=== PATIENT | male | born 1965 | race Caucasian/White ===

== ENCOUNTER 2018-03-03 14:19 | Emergency (ER) | payer OTHER, SELFPAY ==
[2018-03-03 14:20] VITALS: BP 176/106; PULSE 72; RESP 16; TEMP 36.7; O2SAT 100; BMI 32.8
--- NOTE | 2018-03-03 14:31 | RAD_ITS ---
STUDY: X-RAY CHEST REASON FOR EXAM: Male, 52 years old. Chest pain TECHNIQUE: Frontal view of the chest COMPARISON: None. FINDINGS: The lungs are clear. There are no pleural effusions. There is no pneumothorax. The heart is normal in size. The visualized osseous structures are within normal limits. RAD/Chest 1 View (Portable) IMPRESSION: No acute thoracic pathology. Electronically Signed: Bruno Raines, at 15:27 EST Tel , Service support ,
--- NOTE | 2018-03-03 14:31 | EKG12_ITS ---
Test Reason : CP Blood Pressure : / mmHG Vent. Rate : 071 BPM Atrial Rate : 071 BPM P-R Int : 192 ms QRS Dur : 102 ms QT Int : 392 ms P-R-T Axes : 062 058 046 degrees QTc Int : 425 ms Normal sinus rhythm ST elevation, consider early repolarization Borderline ECG Confirmed by BHANU MURRY, DANK ([id number]), video effects editor LORELEI WEIR ([id number]) on 03/05/2018 5:07:33 PM Referred By: LITZY/MOHAMUD Confirmed By:DANK DRUMMOND MD
[2018-03-03] MEDS: Aspirin 81 MG TAB.CHEW 324 MG PO (14:43)
[2018-03-03] MEDS: 0.9% Normal Saline 1,000 ML 15 ML IV (14:43)
[2018-03-03 14:48] LABS: Absolute Lymphocyte Count 0.91 X10^3/ul (0.83-4.51); Absolute Neutrophil Count 5.1 X10^3/uL (2.0-7.7); Basophil# 0.03 X10^3/uL; Basophil% 0.4 % (0-1); Eosinophil# 0.12 X10^3/uL; Eosinophils% 1.7 % (0-5); Hematocrit 44.7 % (40-54); Hemoglobin 15.3 g/dl (13.0-16.5); Lymphocyte # 0.91 X10^3/ul (4.0); Lymphocyte % 13.2 % (19-41); Mean Corp Hgb Conc 34.2 g/gl (32-36); Mean Corpuscular Hgb 33.2 pg (27.0-32.0); Mean Platelet Vol. 10.7 fl (6.2-12.0); Monocyte# 0.73 X10^3/uL; Monocyte% 10.6 % (0-10); Neutrophil # 5.07 X10^3/uL (2.7-7.7); Platelet Count 81 K/mm3 (150-450); RBC Distribution Width CV 12.5 % (11.6-14.6); RBC Distribution Width SD 44.1 fl (35.1-43.9); Red Blood Count 4.61 M/mm3 (4.6-6.2); White Blood Count 6.9 K/mm3 (4.4-11.0)
--- NOTE | 2018-03-03 14:48 | ED.DCSUM_ITS ---
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 he voiced clear understanding of that but stated again he felt fine he preferred outpatient management understood the risks involved and would see his physicians for further management, we also spoke about cessation of alcohol and tobacco use and from return for change in symptoms he stated he would consider all the above as well, he will also take 2 baby aspirin a day until he follows up Treatment Plan: [] Disposition: [] Home stable declined admission Impression: [] Left elbow and left posterior shoulder pain etiology unclear This note was generated with [employer] dictation software. It may contain incorrect words, spelling, and punctuation that were not noted in review of the chart prior to signing ED Disposition - Plan for ED Patient: Chief Complaint: Chest Other Instructions: ED Chest Pain Atypical Unkn Cause Referrals: Jayesh Jeffers MD [Primary Care Provider] - Additional Instructions: Follow-up with your outpatient providers for further evaluation and management
[2018-03-03 14:49] LABS: POSITIVE COUNT NO; POSITIVE DIFFERENTIAL NO; POSITIVE MORPHOLOGY NO
[2018-03-03 15:05] LABS: Anion Gap 7 (5-15); BUN 4 mg/dL (7-18); BUN/Creat Ratio 5.5 RATIO (10-20); Calcium,Total 8.6 mg/dL (8.5-10.1); Chloride 99 mmol/L (98-107); Creatinine, Serum 0.72 mg/dL (0.70-1.30); EST Glomerular Filtration Rate 121 mL/min (>60); Est Glom Filt Rate - Afr Amer 146 mL/min (>60); Estimated Creatinine Clearance 126.37 ml/min; Glucose 119 mg/dL (74-106); Potassium 3.9 mmol/L (3.5-5.1); Sodium Level 132 mmol/L (136-145)
[2018-03-03 15:16] LABS: BNP,B-Type NATRIURETIC PEPTIDE 43.7 pg/mL (0-100)
[2018-03-03 15:45] VITALS: BP 145/87; PULSE 70; RESP 13; O2SAT 97
--- NOTE | 2018-03-03 15:47 | ED.DEP ---
ED Disposition - Plan for ED Patient: Chief Complaint: Chest Other Instructions: ED Chest Pain Atypical Unkn Cause Referrals: Jayesh Jeffers MD [Primary Care Provider] - Additional Instructions: Follow-up with your outpatient providers for further evaluation and management
[2018-03-03 16:04] VITALS: BP 112/79; PULSE 74; RESP 18; O2SAT 97
== END 2018-03-03 16:05 | disposition home or self-care (01) ==
PROVIDERS: Emergency Provider Emergency Medicine; Family Provider Family Medicine; PCP Family Medicine
DX: M25.522 Pain in left elbow (principal); M25.512 Pain in left shoulder; F17.200 Nicotine dependence, unspecified, uncomplicated; R05 Cough; I10 Essential (primary) hypertension; E78.00 Pure hypercholesterolemia, unspecified; Z79.899 Other long term (current) drug therapy
CPT/HCPCS: 71045; 80048; 83880; 84484; 85025; 93005; 99285; J7030; A4216

== ENCOUNTER 2019-06-05 17:06 | Emergency (ER) | payer OTHER, SELFPAY ==
[2019-06-05 17:07] VITALS: BP 155/78; PULSE 103; RESP 17; TEMP 36.5; O2SAT 99; BMI 36.0
--- NOTE | 2019-06-05 17:35 | CT_ITS ---
STUDY: CT ABDOMEN AND PELVIS WITHOUT CONTRAST REASON FOR EXAM: Male, 53 years old. DISTENTION, JAUNDICE, WEAKNESS, FATIGUE X 1 WK RADIATION DOSAGE (If Supplied By Facility): CTDIvol = ( 20.28 ) mGy, DLP = ( 1124.92 ) mGycm TECHNIQUE: Transaxial images were obtained from the dome of the diaphragm to the symphysis pubis without oral contrast, and without intravenous contrast. Sagittal and coronal images were reconstructed. Individualized dose optimization techniques were used for this CT. COMPARISON: None. FINDINGS: Small right pleural effusion with associated atelectasis. The visualized portions of the heart are within normal limits. Significant cirrhosis and ascites. Normal gallbladder and extrahepatic biliary system. Normal spleen. Normal pancreas. Normal bilateral adrenal glands. Normal right kidney. Normal left kidney. Normal visualized stomach. Normal small intestine. Normal colon. The appendix is visualized and appears normal. Normal abdominal aorta. Normal inferior vena cava. Normal retroperitoneum. Normal urinary bladder. Normal visualized prostate gland. There is evidence of prior right inguinal hernia repair. Normal osseous structures. CT/Abdomen/Pelvis without Cont IMPRESSION: Moderate ascites. Small left pleural effusion. Cirrhotic liver which is somewhat poorly characterized secondary to lack of intravenous contrast. Acute hepatitis or other acute hepatic process should be excluded clinically. Electronically Signed: Jones Ward, at 18:36 EDT Tel , Service support ,
--- NOTE | 2019-06-05 17:39 | ED.DCSUM_ITS ---
History of Present Illness Chief Complaint: Weakness Informant: Patient Onset: Weeks - 2 Context: Gradual Onset Timing: Continuous Quality: weakness Location: BLE mostly Current Severity: Moderate Maximum Severity: Moderate Worsened by: nothing Relieved by: nothing Associated Symptoms: poor appetite. jaundice according to my boss today. Narrative: Patient was sent by his PCP because of looking yellow today. He has not noticed or recognized that he has been jaundiced. He states since he had a tooth extracted 2 weeks ago, he has been feeling malaised, weak in his legs, and had a poor appetite. He denies any nausea, vomiting, red blood per rectum, melena, or bleeding from anywhere else. He had some diarrhea that started around 2 weeks ago, but he states he took an antidiarrheal and since that has been resolved. He denies any changes in his abdominal girth or pains. He admits to being an alcoholic. He states he has drank for many years and does not remember how long ago he started drinking heavily. He states on a typical day after work he drinks the equivalent of #4 12-ounce beers, and on a typical weekend, he drinks 8/day. He does not take any medications. He states he does not follow-up with his PCP who we last saw over a year ago, due to a disagreement over an ultrasound of his liver, the patient states this was desired by his PCP because of some abnormal blood work. - Past Medical History (1) HTN (hypertension) Status: Chronic (2) Alcoholism Status: Chronic Past Medical History - Allergies and Home Meds Allergies/Adverse Reactions: Allergies acetaminophen [From Vicodin] Adverse Reaction (Verified 06/05/19 17:37) Itching codeine Adverse Reaction (Verified 06/05/19 17:37) Nausea hydrocodone [From Vicodin] Adverse Reaction (Verified 06/05/19 17:37) Itching Primary Care Physician: Jayesh Jeffers MD [Primary Care Provider] - Lives: Alone Smoking Status: Current every day smoker Alcohol: Heavy Drugs: None Review of Systems General: Reports: Malaise. Denies: Chills, Fever, Sweats Eyes: Denies: Visual changes - bilaterally, Diplopia ENT: Denies: Bilateral ear pain, Rhinorrhea, Sore throat Cardiovascular: Denies: Chest pain, Palpitations Respiratory: Denies: Dyspnea, Cough, Dyspnea on exertion Gastrointestinal: Reports: - - anorexia. Denies: Abdominal pain, Nausea, Vomiting, Diarrhea, Melena, Hematochezia Genitourinary: Denies: Dysuria, Hematuria, Frequency Musculoskeletal: Reports: Swelling - unk duration; pt did not notice until it was pointed out to him. Denies: Back pain, Extremity Pain Skin: Reports: - - jaundice. Denies: Rash, Wounds Neurological: Reports: Weakness. Denies: Headache, Numbness Physical Exam Vital Signs/Narrative: Vital Signs Temp Pulse Resp BP Pulse Ox 06/05/19 17:07 97.7 F L 103 H 17 155/78 H 99 Inital Vital Signs reviewed: Yes General: Well nourished, Well developed, Obese, No Acute Distress Head: Normocephalic, Atraumatic Eyes: Perrl, EOMI, Scleral icterus ENT: Moist mucous membranes, No rhinorrhea, - - sublingual icterus Neck: Supple, Nontender Cardiovascular: Regular rate, Regular rhythm, No murmurs Respiratory: No distress, CTA bilaterally, Chest nontender Abdomen: Soft, Nontender, Normal bowel sounds, - - abdominal distension/obesity, which limits exam for organomegaly and fluid wave Back: Nontender, Normal Inspection Extremities: Nontender, Edema - 2+ pitting, BLE to thighs, symmetric. Negative for: Calf Tenderness Skin: No rash, Jaundice, No Trauma Neurological: Alert, Oriented x3, Cranial nerves II-XII grossly intact, Normal Strength, Normal Sensation Psychological: Normal affect, Normal Mood Diagnostic/Tx/Re-eval Impressions Abdomen/Pelvis CT 06/05/19 17:35 IMPRESSION: Moderate ascites. Small left pleural effusion. Cirrhotic liver which is somewhat poorly characterized secondary to lack of intravenous contrast. Acute hepatitis or other acute hepatic process should be excluded clinically. Electronically Signed: Jones Ward, at 18:36 EDT Tel , Service support , 06/05/19 17:35 Abdomen/Pelvis without Cont [CT] Stat Laboratory Results 06/05/19 06/05/19 06/05/19 17:30 17:30 17:30 WBC 17.5 H RBC 2.91 L Hgb 10.2 L Hct 26.1 L MCV 89.7 MCH 35.1 H MCHC 39.1 H RDW Std Deviation 45.5 H RDW Coeff of Pravin 13.9 Plt Count 84 L MPV 10.6 Neut % (Auto) Not Reportable Absolute Neuts (auto) 15.8 H Absolute Lymphs (auto) 0.53 L Total Counted 100 Neutrophils % (Manual) 85 H Band Neutrophils % 5 Lymphocytes % (Manual) 3 L Monocytes % (Manual) 4 Basophils % (Manual) 1 Metamyelocytes % 2 H Differential Comment SEE COMMENT Diff Path Review May foll Toxic Granulation 1+ Platelet Estimate SLT DEC Anisocytosis RARE Macrocytosis RARE PT 22.0 H INR 2.0 APTT 41.5 H Sodium 108 L* Potassium 3.5 Chloride 77 L Carbon Dioxide 20.0 L Anion Gap 11 BUN 8 Creatinine 0.92 Estim Creat Clear Calc 97.76 Est GFR (MDRD) Af Amer 110 Est GFR (MDRD) Non-Af 91 BUN/Creatinine Ratio 8.7 L Glucose 109 H Calcium 7.4 L Total Bilirubin 28.60 H* Direct Bilirubin 21.43 H AST 415 H ALT 170 H Alkaline Phosphatase 236 H Total Protein 6.6 Albumin 2.4 L Globulin 4.2 Lipase 354 - Medical Decision Making Patient has significant hyponatremia at 108. There has been no history of seizures. He is not confused or appearing encephalopathic on exam. He has sign ificant hyperbilirubinemia, I imaged him with CT which shows signs of ascites and cirrhotic liver. He likely has had cirrhosis for some time that has been undiagnosed since he has refused testing until now. He has elevated coag studies as a result. He was started on normal saline at a slow rate. His MELD score is as below: MELDNa/MELD-Na Score for Liver Cirrhosis from [email or web address] on 06/05/2019 All calculations should be rechecked by clinician prior to use RESULT SUMMARY: 32 points MELD-Na Score Estimated 90-Day Mortality: 65-66% INPUTS: Dialysis at least twice in the past week ?> 0 = No Creatinine ?> 0.92 mg/dL Bilirubin ?> 28.6 mg/dL INR ?> 2.0 Sodium ?> 108 mEq/L I discussed with hospitalist, who based on the above information recommends transfer to a center that has the capability of providing hepatology consultation, TIPS procedure, he is not sure what all he will require at this time, but states we do not have the capacity to care for this patient adequately, and we do not have gastroenterology at this hospital. Patient preferred to stay close but was reasonable and amenable to being transferred to an appropriate place. [facility] were unable to accept him mostly due to the inavailability of gastroenterology. [facility] said they send these patients to [facility], and [facility] in [place] said the same thing. I discussed with the patient, he states that if he had to go to [place] or [place] he preferred [facility] over [facility]. I discussed with Dr. Kowalski there, he referred me to their intens ivist, Dr. Faustin, they did in fact have a bed and he accepted the patient there. At this time he is getting slow IV fluids and is clinically and hemodynamically stable. ED Disposition - Plan for ED Patient: Disposition: Acute Care Hospital - Other Diagnosis: Hyponatremia, Alcoholic cirrhosis of liver with ascites, Coagulopathy Referrals: Jayesh Jeffers MD [Primary Care Provider] -
[2019-06-05 17:50] LABS: Hematocrit 26.1 % (40-54); Hemoglobin 10.2 g/dL (13.0-16.5); Mean Corp Hgb Conc 39.1 g/dL (32-36); Mean Corpuscular Hgb 35.1 pg (27.0-32.0); Mean Corpuscular Volume 89.7 fL (80-94); Mean Platelet Vol. 10.6 fl (6.2-12.0); POSITIVE COUNT YES; POSITIVE DIFFERENTIAL YES; POSITIVE MORPHOLOGY YES; Platelet Count 84 K/mm3 (150-450); RBC Distribution Width CV 13.9 % (11.6-14.6); RBC Distribution Width SD 45.5 fl (35.1-43.9); Red Blood Count 2.91 M/mm3 (4.6-6.2); White Blood Count 17.5 K/mm3 (4.4-11.0)
[2019-06-05 17:54] LABS: Differential Indicated MANUAL DIFF
[2019-06-05 18:05] LABS: Partial Thromboplast Time 41.5 Seconds (24.1-36.2)
[2019-06-05 18:10] LABS: AST(SGOT) 415 U/L (15-37); Alanine Aminotransfer ALT/SGPT 170 U/L (16-61); Albumin, Serum 2.4 g/dL (3.2-5.0); Alkaline Phosphatase 236 U/L (45-117); Anion Gap 11 (5-15); BUN 8 mg/dL (7-18); BUN/Creat Ratio 8.7 RATIO (10-20); Bilirubin, Direct 21.43 mg/dL (0.00-0.30); Calcium,Total 7.4 mg/dL (8.5-10.1); Chloride 77 mmol/L (98-107); Creatinine, Serum 0.92 mg/dL (0.70-1.30); EST Glomerular Filtration Rate 91 mL/min (>60); Est Glom Filt Rate - Afr Amer 110 mL/min (>60); Estimated Creatinine Clearance 97.76 ml/min; Globulin 4.2 g/dL (2.2-4.2); Glucose 109 mg/dL (74-106); Lipase 354 U/L (73-393); Potassium 3.5 mmol/L (3.5-5.1); Protein, Total 6.6 g/dL (6.4-8.2); Sodium Level 108 mmol/L (136-145)
[2019-06-05 18:16] LABS: Basophil 1 % (0-1); Lymphocyte 3 % (19-41); Metamyelocyte 2 % (0-1); Monocyte 4 % (0-10); Neutrophil-Band 5 % (0-5); Neutrophil-Segmented 85 % (47-70); Total Cells Counted 100 (MANUAL DIFF)
[2019-06-05 18:19] LABS: Absolute Lymphocyte Count 0.53 X10^3/uL (0.83-4.51); Absolute Neutrophil Count 15.8 X10^3/uL (2.0-7.7)
[2019-06-05 18:22] LABS: Anisocytosis RARE; Macrocytosis RARE; Platelet Estimate SLT DEC (ADEQ); Toxic Granulation 1+
[2019-06-05 19:00] VITALS: BP 147/59; PULSE 88; RESP 18; O2SAT 96
[2019-06-05] MEDS: 0.9% Normal Saline 1,000 ML 150 ML IV (19:14)
[2019-06-05 21:00] VITALS: BP 143/66; PULSE 90; RESP 11; O2SAT 97
[2019-06-05 21:23] VITALS: BP 143/66; PULSE 87; RESP 14; TEMP 36.6; O2SAT 95
--- NOTE | 2019-06-05 22:15 | ED.RN ---
PER REGI DURHAM, OUR TRANSPORT WAS DIVERTED TO ANOTHER CALL, ETA EXTENDED BY 90 MINUTES
[2019-06-05 23:00] VITALS: BP 136/63; PULSE 92; RESP 15; O2SAT 95
--- NOTE | 2019-06-05 23:20 | ED.RN ---
transport team at bedside. report given. denies questions.
--- NOTE | 2019-06-06 00:13 | ED.RN ---
transport team still at bedside having trouble with IV tubing compatibility.
[2019-06-06 11:15] LABS: Pathologist Review Reviewed
== END 2019-06-06 00:19 | disposition short-term general hospital (02) ==
PROVIDERS: Emergency Provider Emergency Medicine; PCP Family Medicine
DX: K70.31 Alcoholic cirrhosis of liver with ascites (principal); E87.1 Hypo-osmolality and hyponatremia; R79.1 Abnormal coagulation profile; I10 Essential (primary) hypertension; F17.200 Nicotine dependence, unspecified, uncomplicated; E66.9 Obesity, unspecified
CPT/HCPCS: 74176; 80048; 80076; 83690; 85025; 85610; 85730; 96360; 96361; 99285; J7030; A4216

== ENCOUNTER 2019-06-25 17:49 | Emergency (ER) | payer OTHER, SELFPAY ==
[2019-06-25 17:51] VITALS: BP 114/90; PULSE 118; RESP 19; TEMP 36.3; O2SAT 99; BMI 34.8
--- NOTE | 2019-06-25 18:04 | EKG12_ITS ---
Test Reason : Blood Pressure : / mmHG Vent. Rate : 107 BPM Atrial Rate : 107 BPM P-R Int : 146 ms QRS Dur : 090 ms QT Int : 338 ms P-R-T Axes : 086 095 071 degrees QTc Int : 451 ms Sinus tachycardia Rightward axis Borderline ECG Confirmed by NATHANAEL JEFFREY ([id number]), field map editor LORELEI WEIR ([id number]) on 06/30/2019 2:50:05 PM Referred By: YOHANNES Confirmed By:NATHANAEL JEFFREY
--- NOTE | 2019-06-25 18:09 | ED.DCSUM_ITS ---
- ER Visit Summary Date of Service: 06/25/19 Chief Complaint: Lower extremity swelling sent in to rule out DVT History of Present Illness: The patient is a 53 M history of liver disease from alcoholism. States he recently was admitted to [facility] about 2 weeks ago. States he has had leg swelling right greater than left. No pain. No chest pain. No hemoptysis. No history of DVT or PE. No history of cancer. No chest pain or shortness of breath. Physical Examination: Middle-aged male no acute distress vital signs stable afebrile. Pulse ox 90% room air no signs hypoxia. H EENT exam unremarkable. Neck nontender no JVD. No lymphadenopathy. Lungs clear to auscultation bilaterally. Heart regular rhythm rate about 115 no murmur. Chest were nontender. Abdomen soft nontender normal bowel sounds no peritoneal signs. Patient moving all 4 extremities. Both lower extremities have 1+ pitting edema. Calves are nontender. No cords. Dorsi plantarflexion intact. Neurologically he is awake alert with no focal motor deficits. Test Results: This x-ray portable 1 view shows no acute abnormality. Normal cardiac silhouette. No effusions. Read by myself and radiologist. Bilateral lower extremity venous studies showed no DVT per the die maintenance technician. EKG sinus tachycardia rate of 107 no acute signs of WI or ischemia. CBC showed a white count 13. Hemoglobin 8.5 he has chronic anemia his last hemoglobin was 10. Lately count of 62,000 more recently his platelet count has been 81,000. Chemistry sodium 130. Normal BUN, creatinine and gap. Liver enzymes elevated consistent with his history of cirrhosis. Emergency Department Course and Treatment: Patient has bilateral lower extremity 1+ pitting edema. I think this is from his liver disease and cirrhosis. Ultrasound will be obtained to rule out DVT due to his recent admission. Screening labs are being obtained.\ Repeat exam the patient is doing well at 2015 p.m. will be discharged home. Treatment Plan: Elevate his legs to decrease swelling. Follow-up with his primary care physician at the [facility]. Disposition: Discharge Impression: Acute bilateral lower extremity edema History of liver cirrhosis Acute on chronic anemia of chronic disease Hyponatremia Chronic thrombocytopenia This note was generated with [employer] software. It may contain incorrect words, spelling, and punctuation that were not noted in review of the chart prior to signing ED Disposition - Plan for ED Patient: Referrals: Jayesh Jeffers MD [Primary Care Provider] -
--- NOTE | 2019-06-25 18:13 | US_ITS ---
STUDY: VENOUS DOPPLER ULTRASOUND - BILATERAL LOWER EXTREMITIES REASON FOR EXAM: Male, 53 years old. BILAT LEG SWELLING- JUST 2 DAYS TECHNIQUE: Ultrasound evaluation of the deep vein system to include padgett-scale imaging and compression was performed. Padgett-scale imaging and Doppler sonographic evaluation, including duplex spectral analysis and qualitative color flow sonography, was performed. COMPARISON: None. FINDINGS: RIGHT LEG Common Femoral Vein: Normal compression, spontaneity and augmentation. Normal color Doppler. Common Femoral Vein/Greater Saphenous Junction: Normal color flow. Femoral Proximal: Normal color flow. Femoral Middle: Normal compression, spontaneity and augmentation. Normal color Doppler. Femoral Distal: Normal color flow. Popliteal Vein: Normal compression, spontaneity and augmentation. Normal color Doppler. Posterior Tibial Vein: Normal color flow. Peroneal Vein: Normal color flow. LEFT LEG Common Femoral Vein: Normal compression, spontaneity and augmentation. Normal color Doppler. Common Femoral Vein/Greater Saphenous Junction: Normal color flow. Femoral Proximal: Normal color flow. Femoral Middle: Normal compression, spontaneity and augmentation. Normal color Doppler. Femoral Distal: Normal color flow. Popliteal Vein: Normal compression, spontaneity and augmentation. Normal color Doppler. Posterior Tibial Vein: Normal color flow. Peroneal Vein: Normal color flow. US/Venous Duplex Imag/Guido Extrem IMPRESSION: Bilateral lower extremity venous Doppler exam negative for deep venous thrombosis. Electronically Signed: Eleonora Gonzáles MD at 19:13 EDT , Service support ,
[2019-06-25 18:15] VITALS: BP 144/75; PULSE 77; RESP 18; O2SAT 97
--- NOTE | 2019-06-25 18:32 | RAD_ITS ---
STUDY: X-RAY CHEST REASON FOR EXAM: Male, 53 years old. leg edema TECHNIQUE: 1 view COMPARISON: Prior chest radiograph of March 03, 2018 FINDINGS: Limited inspiration with minimal bibasilar atelectatic changes without consolidation. There is no demonstrated pleural abnormality. Normal size heart. Normal mediastinum and sanju. Normal visualized pulmonary arteries. Normal visualized aortic arch and descending thoracic aorta. Normal visualized thoracic spine. Normal visualized ribs, clavicles, and shoulders. There is no demonstrated abnormality of the visualized soft tissue structures of the upper abdomen. RAD/Chest 1 View (Portable) IMPRESSION: Limited inspiration with mild bibasilar atelectatic changes without major consolidation, pleural effusion or cardiomegaly. Negative for pulmonary venous congestion. Electronically Signed: Eleonora Gonzáles MD at 18:49 EDT , Service support ,
[2019-06-25 18:48] LABS: ALB/GLOB Ratio 0.6 RATIO (0.9-2.4); AST(SGOT) 112 U/L (15-37); Alanine Aminotransfer ALT/SGPT 100 U/L (16-61); Albumin, Serum 2.2 g/dL (3.2-5.0); Alkaline Phosphatase 264 U/L (45-117); Anion Gap 5 (5-15); BUN 13 mg/dL (7-18); BUN/Creat Ratio 13.4 RATIO (10-20); Calcium,Total 8.1 mg/dL (8.5-10.1); Chloride 98 mmol/L (98-107); Creatinine, Serum 0.97 mg/dL (0.70-1.30); EST Glomerular Filtration Rate 86 mL/min (>60); Est Glom Filt Rate - Afr Amer 104 mL/min (>60); Estimated Creatinine Clearance 92.72 ml/min; Globulin 3.7 g/dL (2.2-4.2); Glucose 141 mg/dL (74-106); Potassium 4.2 mmol/L (3.5-5.1); Protein, Total 5.9 g/dL (6.4-8.2); Sodium Level 130 mmol/L (136-145)
[2019-06-25 19:29] LABS: Absolute Lymphocyte Count 1.16 X10^3/uL (0.83-4.51); Absolute Neutrophil Count 10.1 X10^3/uL (2.0-7.7); Basophil# 0.06 X10^3/uL; Basophil% 0.5 % (0-1); Eosinophil# 0.23 X10^3/uL; Eosinophils% 1.8 % (0-5); Hematocrit 25.3 % (40-54); Hemoglobin 8.5 g/dL (13.0-16.5); Lymphocyte # 1.16 X10^3/ul (4.0); Lymphocyte % 8.9 % (19-41); Mean Corp Hgb Conc 33.6 g/dL (32-36); Mean Corpuscular Hgb 36.6 pg (27.0-32.0); Mean Corpuscular Volume 109.1 fL (80-94); Mean Platelet Vol. 10.7 fl (6.2-12.0); Monocyte# 1.04 X10^3/uL; NRBC Flagged by Analyzer 0 % (0-5); Neutrophil # 10.09 X10^3/uL (2.7-7.7); Neutrophil % 77.3 % (47-70); POSITIVE COUNT YES; Platelet Count 62 K/mm3 (150-450); RBC Distribution Width CV 14.7 % (11.6-14.6); RBC Distribution Width SD 59.5 fl (35.1-43.9); Red Blood Count 2.32 M/mm3 (4.6-6.2)
[2019-06-25 19:35] LABS: Differential Indicated SCAN CRITERIA MET
[2019-06-25 19:40] VITALS: BP 144/71; PULSE 78; RESP 16; O2SAT 96
[2019-06-25 20:01] LABS: Differential Comment SCANNED
--- NOTE | 2019-06-25 20:17 | ED.DEP ---
ED Disposition - Plan for ED Patient: Disposition: Home or Assisted Living Instructions: ED Peripheral Edema, Bilateral Referrals: Jayesh Jeffers MD [Primary Care Provider] - 3-5 Days Additional Instructions: Follow-up with your primary care physician. There were no blood clots in your legs.
== END 2019-06-25 20:48 | disposition home or self-care (01) ==
PROVIDERS: Emergency Provider Emergency Medicine; PCP Family Medicine
DX: R60.0 Localized edema (principal); E87.1 Hypo-osmolality and hyponatremia; K70.30 Alcoholic cirrhosis of liver without ascites; D63.8 Anemia in other chronic diseases classified elsewhere; D69.6 Thrombocytopenia, unspecified; Z72.0 Tobacco use
CPT/HCPCS: 71045; 80048; 80053; 85025; 93005; 93970; 99282; A4216

== ENCOUNTER 2019-06-30 17:29 | Inpatient (IN) | payer OTHER, SELFPAY ==
[2019-06-30] VITALS (10 sets, daily range): BP systolic 127–156; BP diastolic 73–86; PULSE 103–117; RESP 18–25; TEMP 36.5–36.9; O2SAT 96–99; BMI 39.0; BMI 39.2
--- NOTE | 2019-06-30 18:11 | EKG12_ITS ---
Test Reason : SOB Blood Pressure : / mmHG Vent. Rate : 115 BPM Atrial Rate : 115 BPM P-R Int : 154 ms QRS Dur : 090 ms QT Int : 350 ms P-R-T Axes : 060 060 061 degrees QTc Int : 484 ms Sinus tachycardia Otherwise normal ECG Confirmed by NATHANAEL JEFFREY ([id number]), newspaper editor managing LORELEI WEIR ([id number]) on 07/07/2019 1:46:09 PM Referred By: TOBY/LITZY Confirmed By:NATHANAEL JEFFREY
--- NOTE | 2019-06-30 18:11 | ED.DCSUM_ITS ---
History of Present Illness Chief Complaint: Shortness of Breath Detail of Chief Complaint: Swelling Informant: Patient Onset: Weeks Narrative: Patient has a recent diagnosis of alcoholic cirrhosis and was treated at . He was released approximate 3 weeks ago. Patient states that he has had progressive swelling since he was released from the hospital. He believes he has gained approximately 40 pounds. He is complaining of swelling to his abdomen and lower extremities and increasing shortness of breath. No fever or chills. - Past Medical History (1) Alcoholic cirrhosis Status: Chronic (2) Alcoholism Status: Chronic (3) HTN (hypertension) Status: Chronic Past Medical History - Allergies and Home Meds Allergies/Adverse Reactions: Allergies acetaminophen [From Vicodin] Adverse Reaction (Verified 06/30/19 18:14) Itching codeine Adverse Reaction (Verified 06/30/19 18:14) Nausea hydrocodone [From Vicodin] Adverse Reaction (Verified 06/30/19 18:14) Itching Prior records reviewed: Yes Smoking Status: Current every day smoker - Family History Maternal Family History: Reports: - - This is Review of Systems General: Denies: Chills, Fever Eyes: Denies: Visual changes - bilaterally ENT: Denies: Bilateral ear pain Cardiovascular: Denies: Chest pain Respiratory: Reports: Dyspnea Gastrointestinal: Reports: Abdominal pain - Abdominal distention Musculoskeletal: Reports: Swelling Skin: Denies: Rash Neurological: Denies: Headache Hematologic: Denies: Easy bruising, Easy bleeding Allergy: Denies: Uticaria Physical Exam Vital Signs/Narrative: Vital Signs Temp Pulse Resp BP Pulse Ox 06/30/19 17:29 97.9 F 117 H 25 H 156/78 H 99 Inital Vital Signs reviewed: Yes General: Well nourished, Well developed Head: Normocephalic ENT: Moist mucous membranes Neck: Supple Cardiovascular: Regular rate, Regular rhythm Respiratory: No distress, - - Diminished bilateral bases Abdomen: - - Abdomen distended. No focal tenderness. Extremities: Edema - 4+ edema lower extremities Skin: - - Mild jaundice appearance Neurological: Alert, Oriented x3 Psychological: Normal affect Diagnostic/Tx/Re-eval Impressions Chest X-Ray 06/30/19 18:25 IMPRESSION: Minor bibasilar interstitial thickening and discoid atelectasis in left lower lobe Electronically Signed: Stefan Rico MD at 18:53 EDT , Service support , 06/30/19 18:25 Chest 1 View (Portable) [RAD] Stat Laboratory Results 06/30/19 06/30/19 06/30/19 18:29 18:29 18:29 WBC 10.3 RBC 2.33 L Hgb 8.4 L Hct 25.2 L MCV 108.2 H MCH 36.1 H MCHC 33.3 RDW Std Deviation 52.6 H RDW Coeff of Pravin 13.2 Plt Count 87 L MPV 10.3 Immature Gran % (Auto) 4.700 H Neut % (Auto) 74.4 H Lymph % (Auto) 9.6 L [place] % (Auto) 9.0 Eos % (Auto) 1.9 Baso % (Auto) 0.4 Absolute Neuts (auto) 7.7 Absolute Lymphs (auto) 0.99 Nucleated RBC % 0 Platelet Estimate MOD DEC RBC Morphology NORM C+C PT 20.8 H INR 1.9 APTT 45.5 H Sodium 129 L Potassium 5.0 Chloride 97 L Carbon Dioxide 26.0 Anion Gap 6 BUN 16 Creatinine 1.14 Estim Creat Clear Calc 78.90 Est GFR (MDRD) Af Amer 86 Est GFR (MDRD) Non-Af 71 BUN/Creatinine Ratio 14.0 Glucose 178 H Hemoglobin A1c Calcium 8.2 L Total Bilirubin 9.50 H Direct Bilirubin 6.33 H AST 119 H ALT 91 H Alkaline Phosphatase 327 H Total Protein 6.0 L Albumin 2.0 L Globulin 4.0 Lipase 364 06/30/19 18:29 WBC RBC Hgb Hct MCV MCH MCHC RDW Std Deviation RDW Coeff of Pravin Plt Count MPV Immature Gran % (Auto) Neut % (Auto) Lymph % (Auto) [place] % (Auto) Eos % (Auto) Baso % (Auto) Absolute Neuts (auto) Absolute Lymphs (auto) Nucleated RBC % Platelet Estimate RBC Morphology PT INR APTT Sodium Potassium Chloride Carbon Dioxide Anion Gap BUN Creatinine Estim Creat Clear Calc Est GFR (MDRD) Af Amer Est GFR (MDRD) Non-Af BUN/Creatinine Ratio Glucose Hemoglobin A1c < 3.5 L Calcium Total Bilirubin Direct Bilirubin AST ALT Alkaline Phosphatase Total Protein Albumin Globulin Lipase - Medical Decision Making Patient appears to have significant ascites on exam. His abdomen is distended and tense. I do feel that he would benefit of from a therapeutic paracentesis. I spoken with the hospitalist to admit the patient for ultrasound-guided paracentesis to be performed tomorrow. ED Disposition - Plan for ED Patient: Disposition: Acute Care Hospital [facility] Diagnosis: Ascites
--- NOTE | 2019-06-30 18:25 | RAD_ITS ---
STUDY: X-RAY CHEST REASON FOR EXAM: Male, 53 years old. SOB, jaundice. TECHNIQUE: AP portable COMPARISON: June 25, 2019 FINDINGS: Less than optimal inspiratory effort is seen.. There is minor interstitial thickening in the lower lobes and discoid atelectasis at left base. Normal size heart. Normal mediastinum and sanju. Normal visualized pulmonary arteries. Normal visualized aortic arch and descending thoracic aorta. Normal visualized thoracic spine. Normal visualized ribs, clavicles, and shoulders. There is no demonstrated abnormality of the visualized soft tissue structures of the upper abdomen. RAD/Chest 1 View (Portable) IMPRESSION: Minor bibasilar interstitial thickening and discoid atelectasis in left lower lobe Electronically Signed: Stefan Rico MD at 18:53 EDT , Service support ,
[2019-06-30 19:31] LABS: Absolute Lymphocyte Count 0.99 X10^3/uL (0.83-4.51); Absolute Neutrophil Count 7.7 X10^3/uL (2.0-7.7); Basophil# 0.04 X10^3/uL; Basophil% 0.4 % (0-1); Eosinophils% 1.9 % (0-5); Hematocrit 25.2 % (40-54); Hemoglobin 8.4 g/dL (13.0-16.5); Lymphocyte # 0.99 X10^3/ul (4.0); Lymphocyte % 9.6 % (19-41); Mean Corp Hgb Conc 33.3 g/dL (32-36); Mean Corpuscular Hgb 36.1 pg (27.0-32.0); Mean Corpuscular Volume 108.2 fL (80-94); Mean Platelet Vol. 10.3 fl (6.2-12.0); Monocyte# 0.93 X10^3/uL; NRBC Flagged by Analyzer 0 % (0-5); Neutrophil # 7.68 X10^3/uL (2.7-7.7); Neutrophil % 74.4 % (47-70); POSITIVE COUNT YES; Platelet Count 87 K/mm3 (150-450); RBC Distribution Width CV 13.2 % (11.6-14.6); RBC Distribution Width SD 52.6 fl (35.1-43.9); Red Blood Count 2.33 M/mm3 (4.6-6.2); White Blood Count 10.3 K/mm3 (4.4-11.0)
[2019-06-30 19:33] LABS: Differential Indicated SCAN CRITERIA MET
[2019-06-30 19:34] LABS: International Normalized Ratio 1.9; Prothrombin Time (Protime)PT. 20.8 SECONDS (11.7-14.9)
[2019-06-30 19:35] LABS: Partial Thromboplast Time 45.5 Seconds (24.1-36.2)
[2019-06-30 20:01] LABS: AST(SGOT) 119 U/L (15-37); Alanine Aminotransfer ALT/SGPT 91 U/L (16-61); Alkaline Phosphatase 327 U/L (45-117); Anion Gap 6 (5-15); BUN 16 mg/dL (7-18); Bilirubin, Direct 6.33 mg/dL (0.00-0.30); Calcium,Total 8.2 mg/dL (8.5-10.1); Chloride 97 mmol/L (98-107); Creatinine, Serum 1.14 mg/dL (0.70-1.30); EST Glomerular Filtration Rate 71 mL/min (>60); Est Glom Filt Rate - Afr Amer 86 mL/min (>60); Glucose 178 mg/dL (74-106); Lipase 364 U/L (73-393); Sodium Level 129 mmol/L (136-145)
[2019-06-30 20:16] LABS: Platelet Estimate MOD DEC (ADEQ); Red Cell Morphology NORM C+C NORMAL (NORM C&C)
--- NOTE | 2019-06-30 20:57 | ED.RN ---
Dr Cortes made aware pt meets sepsis alert criteria. No new orders given at this time.
--- NOTE | 2019-06-30 21:59 | PCM.HP.STD ---
Problem List (1) Anasarca Status: Acute (2) HTN (hypertension) Status: Chronic (3) Alcoholism Status: Chronic (4) Alcoholic cirrhosis Status: Chronic History of Present Illness Date of Admission: 06/30/19 Chief Complaint: swelling The patient is a 53 year old M who was recently diagnosed with alcoholic cirrhosis at [facility]. Patient was admitted around June 04 and then discharge about a week later. At home, patient states that his weight has steadily gone up roughly 40 pounds and he has had increasing lower extremity edema. Complains of dyspnea on exertion. Presents to the emergency room for evaluation. Patient was profoundly edematous and the hospitalist service was contacted for admission for further management of his anasarca. [] Past Medical History Past Medical History (Chronic Problems): Chronic Problems HTN (hypertension) (Chronic) Alcoholism (Chronic) Alcoholic cirrhosis (Chronic) Allergies acetaminophen [From Vicodin] Adverse Reaction (Verified 06/30/19 18:14) Itching codeine Adverse Reaction (Verified 06/30/19 18:14) Nausea hydrocodone [From Vicodin] Adverse Reaction (Verified 06/30/19 18:14) Itching Home Medications: Ambulatory Orders Medication Instructions Recorded Potassium Chloride 10 meq PO BID 06/25/19 Hydroxyzine HCl 25 mg PO Q6H PRN PRN 06/30/19 Spironolactone 25 mg PO DAILY 06/30/19 Smoking Status: Current every day smoker Alcohol: None - Has not drank in a month but previous to that, was drinking for 8% alcohol beers per day and with more on the weekends. Drugs: None - *Family History Maternal History Items: - - This is Review of Systems Constitutional: Denies: Anorexia, Fever, Night Sweats Eyes: Denies: Blurred vision, Double vision HEENT: Denies: Head Aches, Sinus Congestion, Sinus Drainage Cardiovascular: Reports: Edema - All review of systems were negative except as mentioned above in the history of present illness and the other review of systems.. Denies: Chest Pain, Palpitations Respiratory: Reports: Shortness of Breath, Shortness of breath upon exertion Gastrointestinal: Denies: Abdominal Pain, Nausea Genitourinary: Denies: Dysuria Musculoskeletal: Denies: Joint Pain, Joint Tenderness Skin: Reports: Jaundice. Denies: Dryness Neurological: Denies: Numbness, Tingling, Focal weakness Psychiatric: Denies: Anxiety, Depression VTE Information - Inpt Only VTE Present on Admission: No VTE Mechan Device Prophylaxis: SCD's VTE Pharm Prophylaxis ordered?: No Reason prophylaxis not ordered:: Procedure Not Indicated Patient Problems: Active and Suspected Problems Anasarca (Acute) - Physical Exam Vitals/I&O's: Vital Signs Temp Pulse Resp BP Pulse Ox 36.5 C L 104 H 18 128/79 H 98 06/30/19 21:26 06/30/19 21:26 06/30/19 21:26 06/30/19 21:26 06/30/19 21:26 Oxygen Delivery Method Room Air Weight: 127.006 kg Body Mass Index (BMI) 39.0 General: Alert, Cooperative, No apparent distress HEENT: Atraumatic, Normocephalic, - - Icterus Neck: Negative Carotid Bruits, No Nodes Lungs: Clear to auscultation, Normal air movement, No rhonchi, No wheeze Cardiovascular: Regular rate, Regular Rhythm, Normal S1, Normal S2 Abdomen: Non Tender, Distended Extremities: No Calf Tenderness, Edema - 3+ lower extremities Skin: No breakdown, - - Bruising on right upper extremity Musculoskeletal: No Tenderness to Palpation of Joints or Extremities, No Muscle Wasting Psych/Mental Status: Normal Affect, Appropriate Laboratory Results 06/30/19 18:29: WBC 10.3, RBC 2.33 L, Hgb 8.4 L, Hct 25.2 L, MCV 108.2 H, MCH 36.1 H, MCHC 33.3, RDW Std Deviation 52.6 H, RDW Coeff of Pravin 13.2, Plt Count 87 L, MPV 10.3, Immature Gran % (Auto) 4.700 H, Neut % (Auto) 74.4 H, Lymph % (Auto) 9.6 L, [place] % (Auto) 9.0, Eos % (Auto) 1.9, Baso % (Auto) 0.4, Absolute Neuts (auto) 7.7, Absolute Lymphs (auto) 0.99, Nucleated RBC % 0, Platelet Estimate MOD DEC, RBC Morphology NORM C+C 06/30/19 18:29: PT 20.8 H, INR 1.9, APTT 45.5 H 06/30/19 18:29: Sodium 129 L, Potassium 5.0, Chloride 97 L, Carbon Dioxide 26.0, Anion Gap 6, BUN 16, Creatinine 1.14, Estim Creat Clear Calc 78.90, Est GFR (MDRD) Af Amer 86, Est GFR (MDRD) Non-Af 71, BUN/Creatinine Ratio 14.0, Glucose 178 H, Calcium 8.2 L, Total Bilirubin 9.50 H, Direct Bilirubin 6.33 H, AST 119 H, ALT 91 H, Alkaline Phosphatase 327 H, Total Protein 6.0 L, Albumin 2.0 L, Globulin 4.0, Lipase 364 Chest x-ray reviewed and showed some mild vascular congestion Assessment/Plan All Active Problems Anasarca (Acute) 1. Anasarca: Likely secondary to the patient's known cirrhosis and portal hypertension. Patient was only on spironolactone at home though when I addressed this with the patient he stated that he was not taking it. Is unclear if patient was actually taking it but if he was it was a rather small dose. Plan is to increase that to 100 daily and then to initiate IV diuresis for the furosemide. I do not feel that there is any cardiac component but will check an echocardiogram. Patient was on potassium replacements at home in addition to spironolactone. We will hold off on those. 2. Alcoholic cirrhosis: Patient is no longer drinking. Patient states that he is not interested in transplant but is seeing Dr. Pineda at [facility], who is the transplant physician over there. We will request records 3. Hyperglycemia: Patient denies diabetes. Will put patient on a sliding scale and check an A1c. 4. VTE prophylaxis: Moderate risk. Chemical prophylaxis contraindicated in regards to the patient's coagulopathy with an INR of 1.9 but also thrombocytopenia. Patient will be on SCDs. 5. Advanced care planning: Patient is full CODE STATUS. Patient very anxious to go home. Questioning if he can be discharged at this time. Encouraged patient to be admitted so that we could facilitate diuresis morfin in the hospital. Patient may be very anxious to leave tomorrow but I try to manage expectations to tell him that he may be here at least couple days. Inpatient E&M: 53297 Init Hosp L3
[2019-06-30] MEDS: 0.9% Saline Lock 10 ML Syringe IV (23:07)
[2019-06-30] MEDS: Furosemide 40 MG/4 ML Vial IV (23:07)
[2019-06-30 23:20] LABS: Hemoglobin A1c < 3.5 % (4.2-6.3)
[2019-07-01] VITALS (8 sets, daily range): BP systolic 111–125; BP diastolic 56–68; PULSE 87–104; RESP 16–18; TEMP 36.6–36.9; O2SAT 95–97
[2019-07-01 06:55] LABS: Bedside Glucose 130 mg/dL (70-110)
[2019-07-01 07:54] LABS: ALB/GLOB Ratio 0.5 RATIO (0.9-2.4); AST(SGOT) 99 U/L (15-37); Alanine Aminotransfer ALT/SGPT 85 U/L (16-61); Albumin, Serum 1.9 g/dL (3.2-5.0); Alkaline Phosphatase 354 U/L (45-117); Anion Gap 4 (5-15); BUN 18 mg/dL (7-18); BUN/Creat Ratio 17.1 RATIO (10-20); Calcium,Total 8.2 mg/dL (8.5-10.1); Chloride 99 mmol/L (98-107); Creatinine, Serum 1.05 mg/dL (0.70-1.30); EST Glomerular Filtration Rate 78 mL/min (>60); Est Glom Filt Rate - Afr Amer 95 mL/min (>60); Estimated Creatinine Clearance 85.66 ml/min; Globulin 3.8 g/dL (2.2-4.2); Glucose 124 mg/dL (74-106); Protein, Total 5.7 g/dL (6.4-8.2); Sodium Level 128 mmol/L (136-145)
--- NOTE | 2019-07-01 10:44 | PCM.PROGNOTE ---
<Tara Pedraza - Last Filed: 07/01/19 11:24> Patient Problems: Active and Suspected Problems Anasarca (Acute) Ascites (Acute) Subjective: Patient seen and examined. Complains of shortness of breath, nonproductive cough. Reports postnasal drainage. Denies fever, chills. - Physical Exam Vitals/I&O's: Vital Signs Temp Pulse Resp BP Pulse Ox 98.4 F 104 H 18 125/68 H 97 07/01/19 08:51 07/01/19 08:51 07/01/19 08:51 07/01/19 08:51 07/01/19 08:51 Oxygen Delivery Method Room Air Weight: 283 lb 15.286 oz Body Mass Index (BMI) 39.2 Intake and Output for Last 24 Hours 06/29/19 06/30/19 07/01/19 23:59 23:59 23:59 Intake Total 240 / 240 120 / 120 Balance 240 / 240 120 / 120 General: Alert, Oriented x3, Cooperative HEENT: Atraumatic, PERRLA, EOMI, Normocephalic Neck: Supple, No JVD, Negative Carotid Bruits Lungs: Diminished, - Cardiovascular: Regular rate, Regular Rhythm, Normal S1, Normal S2, No murmurs Abdomen: Bowel Sounds Present, Soft, Non Tender, Non-Distended, Distended, Obese Extremities: No clubbing, No cyanosis, - - Anasarca, +3 bilateral lower extremity edema Skin: No rashes, No breakdown Musculoskeletal: No Tenderness to Palpation of Joints or Extremities Neurological: Cranial nerves II-XII grossly intact, Neuro grossly intact Psych/Mental Status: Normal Affect, Appropriate Laboratory Results 06/30/19 18:29: WBC 10.3, RBC 2.33 L, Hgb 8.4 L, Hct 25.2 L, MCV 108.2 H, MCH 36.1 H, MCHC 33.3, RDW Std Deviation 52.6 H, RDW Coeff of Pravin 13.2, Plt Count 87 L, MPV 10.3, Immature Gran % (Auto) 4.700 H, Neut % (Auto) 74.4 H, Lymph % (Auto) 9.6 L, [place] % (Auto) 9.0, Eos % (Auto) 1.9, Baso % (Auto) 0.4, Absolute Neuts (auto) 7.7, Absolute Lymphs (auto) 0.99, Nucleated RBC % 0, Platelet Estimate MOD DEC, RBC Morphology NORM C+C 06/30/19 18:29: PT 20.8 H, INR 1.9, APTT 45.5 H 06/30/19 18:29: Sodium 129 L, Potassium 5.0, Chloride 97 L, Carbon Dioxide 26.0, Anion Gap 6, BUN 16, Creatinine 1.14, Estim Creat Clear Calc 78.90, Est GFR (MDRD) Af Amer 86, Est GFR (MDRD) Non-Af 71, BUN/Creatinine Ratio 14.0, Glucose 178 H, Calcium 8.2 L, Total Bilirubin 9.50 H, Direct Bilirubin 6.33 H, AST 119 H, ALT 91 H, Alkaline Phosphatase 327 H, Total Protein 6.0 L, Albumin 2.0 L, Globulin 4.0, Lipase 364 06/30/19 18:29: Hemoglobin A1c < 3.5 L 07/01/19 06:48: POC Glucose 130 H 07/01/19 07:19: Sodium 128 L, Potassium 5.0, Chloride 99, Carbon Dioxide 25.0, Anion Gap 4 L, BUN 18, Creatinine 1.05, Estim Creat Clear Calc 85.66, Est GFR (MDRD) Af Amer 95, Est GFR (MDRD) Non-Af 78, BUN/Creatinine Ratio 17.1, Glucose 124 H, Calcium 8.2 L, Total Bilirubin 7.90 H, AST 99 H, ALT 85 H, Alkaline Phosphatase 354 H, Total Protein 5.7 L, Albumin 1.9 L, Globulin 3.8, Albumin/Globulin Ratio 0.5 L Current Medications Acetaminophen (Tylenol) 500 mg PO Q6H PRN PRN PRN Reason: Pain Score 1-10/10 Dextrose (D50w Syringe) 0 gm IV X1 PRN; Protocol PRN Reason: Hypoglycemia Fluticasone Propionate (Flonase Nasal Landing) 1 spray NASAL BID BELLA Furosemide (Lasix) 40 mg IV BID@1000,1800 BELLA Glucagon () 1 mg IM .X1 PRN PRN Reason: Hypoglycemia Hydroxyzine Pamoate (Vistaril Pamoate Capsule) 25 mg PO Q6H PRN PRN PRN Reason: ITCHING Insulin Human Lispro (Humalog Kwikpen (Bkc)) 0 unit SC TIDAC BELLA; Protocol Last Admin: 07/01/19 06:54 Dose: Not Given Documented by: Nutritional Formula (Lactose Free) (Ensure Enlive) 120 ml PO 4X/DAY BELLA Sodium Chloride () 10 - 40 ml IV UD PRN PRN Reason: SALINE FLUSH Last Admin: 06/30/19 23:07 Dose: 10 ml Documented by: Spironolactone (Aldactone) 100 mg PO DAILY BELLA Medical Necessity - Tobacco Use Smoking Status: Current every day smoker Tobacco Use: Cigarettes Assessment/Plan All Active Problems Anasarca (Acute) Ascites (Acute) 1. Alcoholic cirrhosis with ascites- Discharged from 06/10/2019-CT of abdomen and pelvis during that admission revealed moderate ascites, small left pleural effusion and cirrhotic liver. Patient treated with IV albumin and fluid restriction. Liver ultrasound showed cirrhosis. Paracentesis attempted however there was no appreciable fluid pocket. Paracentesis attempts discontinued due to coagulopathy. He was treated empirically for SBP with IV Rocephin. Established with Dr. Miriam NAVARRO with following DC. Per GI note, he may need liver transplant in the future if his liver function does not improve. Alcohol cessation and treatment program was discussed with patient. Per [facility] records, patient had MEHUL at 06/06/2019 which demonstrated left ventricular systolic function hyperdynamic with a 70 to 75% estimated ejection fraction. Impaired relaxation pattern of left ventricular diastolic filling. Will not repeat echo given recent MEHUL. Continue IV Lasix and spironolactone. Fluid restriction. Aramis wraps bilateral lower extremities. 2. Chronic alcohol dependence-reports he quit drinking following recent admission to in May. 3. Tobacco dependence-encouraged cessation. 4. Anxiety with panic attacks-recommend outpatient follow-up. 5. Hypertension-stable, continue spironolactone. 6. Chronic macrocytic anemia-stable, trend CBC. 7. Thrombocytopenia, coagulopathy-secondary to #1. Trend CBC. DVT prophylaxis- SCDs, pharmacologic prophylaxis contraindicated due to thrombocytopenia, coagulopathy This patient was seen by CHIDI Hernandez under the supervision of Dr. Lane. <Luiz Lane - Last Filed: 07/01/19 12:08> - Physical Exam Vitals/I&O's: Vital Signs Temp Pulse Resp BP Pulse Ox 98.4 F 104 H 18 125/68 H 97 07/01/19 08:51 07/01/19 08:51 07/01/19 08:51 07/01/19 08:51 07/01/19 08:51 Oxygen Delivery Method Room Air Weight: 283 lb 15.286 oz Body Mass Index (BMI) 39.2 Intake and Output for Last 24 Hours 06/29/19 06/30/19 07/01/19 23:59 23:59 23:59 Intake Total 240 / 240 120 / 120 Balance 240 / 240 120 / 120 Laboratory Results 06/30/19 18:29: WBC 10.3, RBC 2.33 L, Hgb 8.4 L, Hct 25.2 L, MCV 108.2 H, MCH 36.1 H, MCHC 33.3, RDW Std Deviation 52.6 H, RDW Coeff of Pravin 13.2, Plt Count 87 L, MPV 10.3, Immature Gran % (Auto) 4.700 H, Neut % (Auto) 74.4 H, Lymph % (Auto) 9.6 L, [place] % (Auto) 9.0, Eos % (Auto) 1.9, Baso % (Auto) 0.4, Absolute Neuts (auto) 7.7, Absolute Lymphs (auto) 0.99, Nucleated RBC % 0, Platelet Estimate MOD DEC, RBC Morphology NORM C+C 06/30/19 18:29: PT 20.8 H, INR 1.9, APTT 45.5 H 06/30/19 18:29: Sodium 129 L, Potassium 5.0, Chloride 97 L, Carbon Dioxide 26.0, Anion Gap 6, BUN 16, Creatinine 1.14, Estim Creat Clear Calc 78.90, Est GFR (MDRD) Af Amer 86, Est GFR (MDRD) Non-Af 71, BUN/Creatinine Ratio 14.0, Glucose 178 H, Calcium 8.2 L, Total Bilirubin 9.50 H, Direct Bilirubin 6.33 H, AST 119 H, ALT 91 H, Alkaline Phosphatase 327 H, Total Protein 6.0 L, Albumin 2.0 L, Globulin 4.0, Lipase 364 06/30/19 18:29: Hemoglobin A1c < 3.5 L 07/01/19 06:48: POC Glucose 130 H 07/01/19 07:19: Sodium 128 L, Potassium 5.0, Chloride 99, Carbon Dioxide 25.0, Anion Gap 4 L, BUN 18, Creatinine 1.05, Estim Creat Clear Calc 85.66, Est GFR (MDRD) Af Amer 95, Est GFR (MDRD) Non-Af 78, BUN/Creatinine Ratio 17.1, Glucose 124 H, Calcium 8.2 L, Total Bilirubin 7.90 H, AST 99 H, ALT 85 H, Alkaline Phosphatase 354 H, Total Protein 5.7 L, Albumin 1.9 L, Globulin 3.8, Albumin/Globulin Ratio 0.5 L Current Medications Acetaminophen (Tylenol) 500 mg PO Q6H PRN PRN PRN Reason: Pain Score 1-1010 Last Admin: 07/01/19 11:15 Dose: 500 mg Documented by: Albuterol/Ipratropium (Duoneb) 3 ml INHALATION Q6HWA.RT BELLA Dextrose (D50w Syringe) 0 gm IV X1 PRN; Protocol PRN Reason: Hypoglycemia Fluticasone Propionate (Flonase Nasal Landing) 1 spray NASAL BID BELLA Last Admin: 07/01/19 11:14 Dose: 1 spray Documented by: Folic Acid (Folic Acid) 1 mg PO DAILY@0800 BELLA Furosemide (Lasix) 40 mg IV Q8 BELLA Glucagon () 1 mg IM .X1 PRN PRN Reason: Hypoglycemia Hydroxyzine Pamoate (Vistaril Pamoate Capsule) 25 mg PO Q6H PRN PRN PRN Reason: ITCHING Insulin Human Lispro (Humalog Kwikpen (Bkc)) 0 unit SC TIDAC BELLA; Protocol Last Admin: 07/01/19 11:28 Dose: Not Given Documented by: Lactulose (Chronulac, Cephulac) 20 gm PO DAILY BELLA Sodium Chloride () 10 - 40 ml IV UD PRN PRN Reason: SALINE FLUSH Last Admin: 07/01/19 10:52 Dose: 20 ml Documented by: Spironolactone (Aldactone) 100 mg PO DAILY BELLA Last Admin: 07/01/19 10:51 Dose: 100 mg Documented by: Thiamine HCl (Vitamin B1) 100 mg PO DAILYCM BELLA Assessment/Plan Hospitalist note: I am seeing this patient in conjunction with Tara Pedraza. I independently seen and examined the patient. Progress note above, laboratory data and imaging studies reviewed and I concur with above treatment plan and additions are below. Today, patient complained of shortness of breath at rest due to huge abdominal distention as well as postnasal drip and dry cough. He denied fever or chills. Leg edema still the same. His vital signs are stable, afebrile. - Physical Exam General: Alert, Oriented x3, Cooperative, he is in moderate respiratory distress. HEENT: Atraumatic, PERRLA, EOMI. Neck: Supple, No JVD, Negative Carotid Bruits, Trachea Midline, Thyroid Normal. Lungs: Decreased breath sounds bilateral, bilateral rhonchi, No wheeze, No rales. Cardiovascular: Regular rate, Regular Rhythm, Normal S1, Normal S2, PMI Normal. Abdomen: Soft, distended, nontender, ascites, bowel Sounds Present, No Hepato-splenomegaly. Extremities: No clubbing, No cyanosis, +++ edema Skin: No rashes, No breakdown Neurological: Cranial nerves are intact, neuro grossly intact Vital Signs are stable. Assessment and plan: #1 acute decompensated alcoholic liver cirrhosis: With ascites and leg edema. Patient was recently diagnosed with alcoholic liver cirrhosis. At this time, he is on IV Lasix and p.o. Aldactone. Routine blood work revealed hemoglobin of 8.4 g/dL, platelet count of 87,000, sodium 128. LFT is elevated likely due to liver cirrhosis. Lipase is normal. Plan: Continue IV diuresis, continue Aldactone, start daily lactulose to ensure at least 2 bowel movements daily, start folic acid and thiamine supplement, repeat CBC and CMP tomorrow morning, check serum ammonia. Will discuss with radiology if they can do paracentesis tomorrow and we can give patient FFP right before the paracentesis. #2 anemia: It is macrocytic anemia likely due to chronic liver disease. Patient denied any hemoptysis, hematemesis, hematochezia, melena. Will check iron studies, B12, serum folate. #3 coagulopathy/thrombocytopenia: Again due to chronic liver disease. INR is 1.9, platelet count is 87,000. At this time, no active bleeding. Plan as above. #4 hyponatremia: It is chronic, likely due to chronic alcoholic liver disease. Baseline sodium has been around 125 to 130 mmol/L. #5 elevated LFT: Both direct and total bilirubin as well as liver transaminases and alkaline phosphatase are elevated and are due to liver cirrhosis. Plan to monitor. #6 other chronic medical problems: Stable, continue current medication as above. This note was generated with [employer] dictation software. It may contain incorrect words, spelling, and punctuation that were not noted in checking the note before signing. Inpatient E&M: 46652 Subs Hosp L2
[2019-07-01] MEDS: Spironolactone 50 MG Tablet 100 MG PO (10:51)
[2019-07-01] MEDS: 0.9% Saline Lock 10 ML Syringe IV ×3 (10:52→21:01)
[2019-07-01] MEDS: Furosemide 40 MG/4 ML Vial IV ×3 (10:52→21:00)
[2019-07-01] MEDS: Fluticasone 0.05% 1 SPRAY NASAL.SRY NASAL ×2 (11:14→21:00)
[2019-07-01] MEDS: Acetaminophen 500 MG Tablet PO (11:15)
[2019-07-01 13:09] LABS: Ferritin 2973 ng/mL (26-388); Iron 90 ug/dL (65-175); Iron Binding Capacity,Total 120 ug/dL (250-450)
[2019-07-01 13:28] LABS: Vitamin B12 > 2000 pg/mL (211-911)
--- NOTE | 2019-07-01 14:07 | CASEMGMT ---
LAKESHIA LOFTON assessment: Face to Face with patient for initial transition planning/care coordination assessment. LAKESHIA LOFTON introduced self and role at [facility], pt voices understanding and consents to assessment at this time. Pt is sitting up in bed in no distress at this time. Pt is A/Ox4 at this time and answers all questions appropriately at this time. Care providers, pharmacy, and demographics verified at this time. Presentation: C/O SOB, fluid, pt appears jaundice Admitting dx: Anasarca PCP: [facility] Specialists: Pt states no current specialists at this time. [facility]erred Pharmacy: [facility] Insurance: Cigna Prescription Benefit: C[employer]a Living Will/HPOA: Pt states no LW/HPOA and declines AD info at this time. LNOK: Leonor Rivas, ex Living Arrangements: Pt states lives alone in home and states no concerns at home at this time. Pt states is independent with ADL's at this time. Transportation: Pt states drives self and states no transportation concerns at this time. DME/HHC: Pt states no current DME or need for any at this time. Pt states no hx of HHC or SNF in the past. Pt states no concerns with going home at time of discharge. 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 Pt states smokes 1.5pack cigarettes daily and quit drinking ETOH recently after admission at for liver cirrhosis. Pt states no further concerns/needs at this time. CM to follow for any further discharge planning/needs. Advised pt to ask for CM if any further questions/concerns/needs arise, voices understanding. Pt Goal: Home Plan: [place] LAKESHIA LOFTON
[2019-07-01] MEDS: Ipratropium/Albuterol Sulfate 3 ML AMPUL.NEB INHALATION ×2 (14:09→18:37)
[2019-07-01] MEDS: Thiamine Hydrochloride 100 MG Tablet PO (15:05)
[2019-07-01] MEDS: Folic Acid 1 MG Tablet PO (15:05)
[2019-07-01] MEDS: Lactulose 20 GM/30 ML UDC PO (15:06)
[2019-07-01 17:01] LABS: Bedside Glucose 108 mg/dL (70-110)
[2019-07-02] VITALS (12 sets, daily range): BP systolic 99–122; BP diastolic 45–62; PULSE 84–107; RESP 16–20; TEMP 36.8–37.2; O2SAT 93–99
--- NOTE | 2019-07-02 | FLU_PTH ---
PATIENT: JACLYN JO LOC: [facility] U#:[id number] AGE/SX: 53/M ROOM: [facility] RE06/30/[address]: Dr. Luiz Lane MD : [id number] BED: 1 DIS: 07/04/2019 SPEC #: [id number] RECD: 07/02/19 13:34 STATUS: PRICILA REQ #: [id number] JAYMIE: 07/02/19 00:[address]: Luiz Lane DEPT: CYTOLOGY RECD BY: Aftab Brunner ENTERED: 07/02/19 13:34 SP TYPE: Fluid OTHR DR: DO Dr. Jayesh Stinson MD Tissues: PARACENTESIS FLUID Procedures: Special Stain Group II Surgery Specimen Level IV Cytospin Fluid HEADER OPERATION: Ultrasound-guided paracentesis PRE-OP DIAGNOSIS: Ascites TISSUE SUBMITTED: Paracentesis fluid for cytology DIAGNOSIS CYTOLOGY Paracentesis fluid for cytology (cytospin and cell block): Negative for malignant cells. JORGE:jemal 07/03/19 CYTOLOGY STUDY Slides are reviewed. CYTOLOGY GROSS Received is 100 ml of yellow cloudy fluid labeled with the patient's name and and designated per the requisition as paracentesis. Submitted for cytology preparation including cell block. / jemal 07/02/19 TC:5 CPT: 92590, 14721
[2019-07-02] MEDS: Ipratropium/Albuterol Sulfate 3 ML AMPUL.NEB INHALATION ×3 (00:46→19:09)
[2019-07-02] MEDS: Furosemide 40 MG/4 ML Vial IV ×3 (05:34→21:25)
[2019-07-02] MEDS: 0.9% Saline Lock 10 ML Syringe IV ×2 (05:35→21:25)
[2019-07-02 05:53] LABS: Hematocrit 23.2 % (40-54); Hemoglobin 7.7 g/dL (13.0-16.5); Mean Corp Hgb Conc 33.2 g/dL (32-36); Mean Corpuscular Hgb 35.3 pg (27.0-32.0); Mean Corpuscular Volume 106.4 fL (80-94); Mean Platelet Vol. 10.1 fl (6.2-12.0); POSITIVE COUNT YES; Platelet Count 89 K/mm3 (150-450); RBC Distribution Width CV 12.9 % (11.6-14.6); RBC Distribution Width SD 50.1 fl (35.1-43.9); Red Blood Count 2.18 M/mm3 (4.6-6.2); White Blood Count 10.6 K/mm3 (4.4-11.0)
[2019-07-02 06:18] LABS: ALB/GLOB Ratio 0.5 RATIO (0.9-2.4); AST(SGOT) 91 U/L (15-37); Alanine Aminotransfer ALT/SGPT 77 U/L (16-61); Albumin, Serum 1.8 g/dL (3.2-5.0); Alkaline Phosphatase 307 U/L (45-117); Anion Gap 7 (5-15); BUN 22 mg/dL (7-18); BUN/Creat Ratio 19.3 RATIO (10-20); Calcium,Total 7.7 mg/dL (8.5-10.1); Chloride 99 mmol/L (98-107); Creatinine, Serum 1.14 mg/dL (0.70-1.30); EST Glomerular Filtration Rate 71 mL/min (>60); Est Glom Filt Rate - Afr Amer 86 mL/min (>60); Globulin 3.6 g/dL (2.2-4.2); Glucose 147 mg/dL (74-106); Potassium 4.8 mmol/L (3.5-5.1); Protein, Total 5.4 g/dL (6.4-8.2); Sodium Level 130 mmol/L (136-145)
[2019-07-02 07:06] LABS: Bedside Glucose 123 mg/dL (70-110)
[2019-07-02] MEDS: Fluticasone 0.05% 1 SPRAY NASAL.SRY NASAL ×2 (08:56→21:25)
[2019-07-02] MEDS: Folic Acid 1 MG Tablet PO (08:56)
[2019-07-02] MEDS: Spironolactone 50 MG Tablet 100 MG PO (08:56)
[2019-07-02] MEDS: Lactulose 20 GM/30 ML UDC PO (10:04)
[2019-07-02] MEDS: Thiamine Hydrochloride 100 MG Tablet PO (10:04)
--- NOTE | 2019-07-02 11:39 | PN_ITS ---
<Tara Pedraza - Last Filed: 07/02/19 11:48> Patient Problems: Active and Suspected Problems Anasarca (Acute) Ascites (Acute) Subjective: Patient seen and examined. Reports improvement in breathing. Continues to have significant abdominal and lower extremity swelling. To undergo paracentesis this afternoon. - Physical Exam Vitals/I&O's: Vital Signs Temp Pulse Resp BP Pulse Ox 98.2 F 104 H 18 122/57 H 97 07/02/19 10:00 07/02/19 10:00 07/02/19 10:00 07/02/19 10:00 07/02/19 10:00 Oxygen Delivery Method Room Air Weight: 281 lb 12.012 oz Body Mass Index (BMI) 39.2 Intake and Output for Last 24 Hours 06/30/19 07/01/19 07/02/19 23:59 23:59 23:59 Intake Total 240 / 240 1160 / 1160 200 / 200 Output Total 1375 / 1375 225 / 225 Balance 240 / 240 -215 / -215 -25 / -25 General: Alert, Oriented x3, Cooperative HEENT: Atraumatic, PERRLA, EOMI, Normocephalic Neck: Supple, No JVD, Negative Carotid Bruits Lungs: Diminished, - - Faint crackles bilateral bases Cardiovascular: Regular rate, Regular Rhythm, Normal S1, Normal S2, No murmurs Abdomen: Bowel Sounds Present, Soft, Non Tender, Non-Distended, Obese, - - Ascites Extremities: No clubbing, No cyanosis, Edema - +3 bilateral lower extremities Skin: No rashes, No breakdown Musculoskeletal: No Tenderness to Palpation of Joints or Extremities Neurological: Cranial nerves II-XII grossly intact, Neuro grossly intact Psych/Mental Status: Normal Affect, Appropriate Laboratory Results 07/01/19 07:19: Iron 90, TIBC 120 L, Iron Saturation 75.0 H, Ferritin 2973 H 07/01/19 12:37: Vitamin B12 > 2000 H 07/01/19 12:37: RBC Folate Hemolysate Pending, RBC Folate Pending, Hematocrit Pending 07/01/19 16:54: POC Glucose 108 07/01/19 19:53: Blood Type O POSITIVE 07/02/19 05:36: WBC 10.6, RBC 2.18 L, Hgb 7.7 L, Hct 23.2 L, MCV 106.4 H, MCH 35.3 H, MCHC 33.2, RDW Std Deviation 50.1 H, RDW Coeff of Pravin 12.9, Plt Count 89 L, MPV 10.1 07/02/19 05:36: Sodium 130 L, Potassium 4.8, Chloride 99, Carbon Dioxide 24.0, Anion Gap 7, BUN 22 H, Creatinine 1.14, Estim Creat Clear Calc 78.90, Est GFR (MDRD) Af Amer 86, Est GFR (MDRD) Non-Af 71, BUN/Creatinine Ratio 19.3, Glucose 147 H, Calcium 7.7 L, Total Bilirubin 8.30 H, AST 91 H, ALT 77 H, Alkaline Phosphatase 307 H, Total Protein 5.4 L, Albumin 1.8 L, Globulin 3.6, Albumin/Globulin Ratio 0.5 L 07/02/19 05:36: Ammonia 59.0 H 07/02/19 06:58: POC Glucose 123 H Current Medications Acetaminophen (Tylenol) 500 mg PO Q6H PRN PRN PRN Reason: Pain Score 1-10/10 Last Admin: 07/01/19 11:15 Dose: 500 mg Documented by: Albuterol/Ipratropium (Duoneb) 3 ml INHALATION Q6HWA.RT [facility] Last Admin: 07/02/19 07:01 Dose: 3 ml Documented by: Dextrose (D50w Syringe) 0 gm IV X1 PRN; Protocol PRN Reason: Hypoglycemia Fluticasone Propionate (Flonase Nasal [place]) 1 spray NASAL BID [facility] Last Admin: 07/02/19 08:56 Dose: 1 spray Documented by: Folic Acid (Folic Acid) 1 mg PO DAILY@0800 [facility] Last Admin: 07/02/19 08:56 Dose: 1 mg Documented by: Furosemide (Lasix) 40 mg IV Q8 [facility] Last Admin: 07/02/19 05:34 Dose: 40 mg Documented by: Glucagon () 1 mg IM .X1 PRN PRN Reason: Hypoglycemia Hydroxyzine Pamoate (Vistaril Pamoate Capsule) 25 mg PO Q6H PRN PRN PRN Reason: ITCHING Insulin Human Lispro (Humalog Kwikpen (Bkc)) 0 unit SC TIDAC [facility]; Protocol Last Admin: 07/02/19 06:58 Dose: Not Given Documented by: Lactulose (Chronulac, Cephulac) 20 gm PO DAILY [facility] Last Admin: 07/02/19 10:04 Dose: 20 gm Documented by: Sodium Chloride () 10 - 40 ml IV UD PRN PRN Reason: SALINE FLUSH Last Admin: 07/02/19 05:35 Dose: 10 ml Documented by: Spironolactone (Aldactone) 100 mg PO DAILY [facility] Last Admin: 07/02/19 08:56 Dose: 100 mg Documented by: Thiamine HCl (Vitamin B1) [address] [facility] Last Admin: 07/02/19 10:04 Dose: 100 mg Documented by: Medical Necessity - Tobacco Use Smoking Status: Current every day smoker Tobacco Use: Cigarettes Assessment/Plan All Active Problems Anasarca (Acute) Ascites (Acute) 1. Alcoholic cirrhosis with ascites- Discharged from 06/10/2019-CT of abdomen and pelvis during that admission revealed moderate ascites, small left pleural effusion and cirrhotic liver. Patient treated with IV albumin and fluid restriction. Liver ultrasound showed cirrhosis. Paracentesis attempted however there was no appreciable fluid pocket. Paracentesis attempts discontinued due to coagulopathy. He was treated empirically for SBP with IV Rocephin. Established with [facility]ID[facility]. Pineda with following DC. Per GI note, he may need liver transplant in the future if his liver function does not improve. Alcohol cessation and treatment program was discussed with patient. Per [facility] records, patient had MEHUL at 06/06/2019 which demonstrated left ventricular systolic function hyperdynamic with a 70 to 75% estimated ejection fraction. Impaired relaxation pattern of left ventricular diastolic filling. Will not repeat echo given recent MEHUL. Continue IV Lasix and spironolactone. Fluid restriction. Aramis wraps bilateral lower extremities. Patient to undergo paracentesis this afternoon. 1 unit FFP given this a.m. 25 mg IV albumin ordered following paracentesis. 2. Chronic alcohol dependence-reports he quit drinking following recent a dmission to in May. 3. Tobacco dependence-encouraged cessation. 4. Anxiety with panic attacks-recommend outpatient follow-up. 5. Hypertension-stable, continue spironolactone. 6. Acute on chronic macrocytic anemia-plan to transfuse for hemoglobin less than 7. Hemoglobin this morning 7.7. Trend H&H. 7. Thrombocytopenia, coagulopathy-secondary to #1. Trend CBC. DVT prophylaxis- SCDs, pharmacologic prophylaxis contraindicated due to thrombocytopenia, coagulopathy This patient was seen by CHIDI Hernandez under the supervision of Dr. Lane. <Luiz Lane E - Last Filed: 07/02/19 12:08> - Physical Exam Vitals/I&O's: Vital Signs Temp Pulse Resp BP Pulse Ox 98.2 F 104 H 18 122/57 H 97 07/02/19 10:00 07/02/19 10:00 07/02/19 10:00 07/02/19 10:00 07/02/19 10:00 Oxygen Delivery Method Room Air Weight: 281 lb 12.012 oz Body Mass Index (BMI) 39.2 Intake and Output for Last 24 Hours 06/30/19 07/01/19 07/02/19 23:59 23:59 23:59 Intake Total 240 / 240 1160 / 1160 200 / 200 Output Total 1375 / 1375 225 / 225 Balance 240 / 240 -215 / -215 -25 / -25 Laboratory Results 07/01/19 07:19: Iron 90, TIBC 120 L, Iron Saturation 75.0 H, Ferritin 2973 H 07/01/19 12:37: Vitamin B12 > 2000 H 07/01/19 12:37: RBC Folate Hemolysate Pending, RBC Folate Pending, Hematocrit Pending 07/01/19 16:54: POC Glucose 108 07/01/19 19:53: Blood Type O POSITIVE 07/02/19 05:36: WBC 10.6, RBC 2.18 L, Hgb 7.7 L, Hct 23.2 L, MCV 106.4 H, MCH 35.3 H, MCHC 33.2, RDW Std Deviation 50.1 H, RDW Coeff of Praivn 12.9, Plt Count 89 L, MPV 10.1 07/02/19 05:36: Sodium 130 L, Potassium 4.8, Chloride 99, Carbon Dioxide 24.0, Anion Gap 7, BUN 22 H, Creatinine 1.14, Estim Creat Clear Calc 78.90, Est GFR (MDRD) Af Amer 86, Est GFR (MDRD) Non-Af 71, BUN/Creatinine Ratio 19.3, Glucose 147 H, Calcium 7.7 L, Total Bilirubin 8.30 H, AST 91 H, ALT 77 H, Alkaline Phosphatase 307 H, Total Protein 5.4 L, Albumin 1.8 L, Globulin 3.6, Albumin/Globulin Ratio 0.5 L 07/02/19 05:36: Ammonia 59.0 H 07/02/19 06:58: POC Glucose 123 H Current Medications Acetaminophen (Tylenol) 500 mg PO Q6H PRN PRN PRN Reason: Pain Score 1-10 Last Admin: 07/01/19 11:15 Dose: 500 mg Documented by: Albuterol/Ipratropium (Duoneb) 3 ml INHALATION Q6HWA.RT [facility] Last Admin: 07/02/19 07:01 Dose: 3 ml Documented by: Dextrose (D50w Syringe) 0 gm IV X1 PRN; Protocol PRN Reason: Hypoglycemia Fluticasone Propionate (Flonase Nasal [place]y [place]) 1 spray NASAL BID [facility] Last Admin: 07/02/19 08:56 Dose: 1 spray Documented by: Folic Acid (Folic Acid) 1 mg PO DAILY@0800 [facility] Last Admin: 07/02/19 08:56 Dose: 1 mg Documented by: Furosemide (Lasix) 40 mg IV Q8 [facility] Last Admin: 07/02/19 05:34 Dose: 40 mg Documented by: Glucagon () 1 mg IM .X1 PRN PRN Reason: Hypoglycemia Hydroxyzine Pamoate (Vistaril Pamoate Capsule) 25 mg PO Q6H PRN PRN PRN Reason: ITCHING Albumin Human () 25 gm in 100 mls @ 60 mls/hr IV X1 ONE Stop: 07/02/19 13:18 Insulin Human Lispro (Humalog Kwikpen (Bkc)) 0 unit SC TIDAC [facility]; Protocol Last Admin: 07/02/19 06:58 Dose: Not Given Documented by: Lactulose (Chronulac, Cephulac) 20 gm PO DAILY [facility] Last Admin: 07/02/19 10:04 Dose: 20 gm Documented by: Sodium Chloride () 10 - 40 ml IV UD PRN PRN Reason: SALINE FLUSH Last Admin: 07/02/19 05:35 Dose: 10 ml Documented by: Spironolactone (Aldactone) 100 mg PO DAILY [facility] Last Admin: 07/02/19 08:56 Dose: 100 mg Documented by: Thiamine HCl (Vitamin B1) 100 mg PO DAILYCM [facility] Last Admin: 07/02/19 10:04 Dose: 100 mg Documented by: Assessment/Plan Hospitalist note: I am seeing this patient in conjunction with Tara Pedraza. I independently seen and examined the patient. Progress note above, laboratory data and imaging studies reviewed and I concur with above treatment plan and additions are below. Patient reported improvement of his breathing and postnasal drip. Still complaining of significant abdominal distention and bilateral leg edema. Heart rate has been around 100, other vital signs are stable. - Physical Exam General: Alert, Oriented x3, Cooperative, he is in moderate respiratory distress. HEENT: Atraumatic, PERRLA, EOMI. Neck: Supple, No JVD, Negative Carotid Bruits, Trachea Midline, Thyroid Normal. Lungs: Decreased breath sounds bilateral, occasional rhonchi, No wheeze, No rales. Cardiovascular: Regular rate, Regular Rhythm, Normal S1, Normal S2, PMI Normal. Abdomen: Soft, distended, nontender, ascites, bowel Sounds Present, No Hepato- splenomegaly. Extremities: No clubbing, No cyanosis, +++ edema Skin: No rashes, No breakdown Neurological: Cranial nerves are intact, neuro grossly intact Vital Signs are stable. Assessment and plan: #1 acute decompensated alcoholic liver cirrhosis: With ascites and leg edema. He is on IV Lasix, Aldactone, lactulose, folic acid and thiamine. Patient was recently diagnosed with alcoholic liver cirrhosis. Repeat CBC and BMP today reviewed. Patient still symptomatic with significant abdominal distention and leg edema. Plan for paracentesis today, patient received FFP this morning. We will do ascitic fluid analysis with blood cell count with differential, culture, cytology, glucose, LDH, pH and protein. Plan to repeat CBC and BMP tomorrow morning. #2 anemia: It is macrocytic anemia likely due to chronic liver disease. Again, patient denied any hemoptysis, hematemesis, hematochezia, melena. Serum iron is normal, ferritin is high. B12 is elevated, RBC folate is pending. Today's hemoglobin is 7.7 g/dL. No evidence of active bleeding. Plan to monitor, transfuse if hemoglobin continues to drop tomorrow. #3 coagulopathy/thrombocytopenia: Again due to chronic liver disease. INR is 1.9, platelet count is 89,000 today. At this time, no active bleeding. Plan as above. #4 hyponatremia: It is chronic, likely due to chronic alcoholic liver disease. Baseline sodium has been around 125 to 130 mmol/L. Today sodium is 130, improved. #5 elevated LFT: Both direct and total bilirubin as well as liver transaminases and alkaline phosphatase are elevated and are due to liver cirrhosis. Plan to monitor. #6 other chronic medical problems: Stable, continue current medication as above. This note was generated with [employer] dictation software. It may contain incorrect words, spelling, and punctuation that were not noted in checking the note before signing. Inpatient E&M: 96017 Subs Hosp L2
--- NOTE | 2019-07-02 12:30 | US_ITS ---
PROCEDURE: Ultrasound guided paracentesis. DATE OF EXAMINATION: July 02, 2019. INDICATION: Male, 53 years old. Ascites. PHYSICIAN: Demar Chamberlain M.D. TECHNIQUE: The risks, benefits, and alternatives to the procedure were explained to the patient. The specific risks of bleeding, infection, and damage to bowel were detailed and accepted. Witnessed informed consent was obtained. The abdomen was ultrasonographically surveyed. An appropriate pocket of fluid was identified at the right lower quadrant. The skin were cleaned and prepped in the usual sterile fashion. Using ultrasound guidance, the peritoneal cavity was accessed with a 5-Samoan paracentesis needle/catheter system. The trocar was removed. A total of 8100 ml of dark yellow-colored fluid were removed from the peritoneal cavity. The catheter was removed and a sterile dressing was applied. The procedure was well tolerated. US/Paracentesis with US IMPRESSION: Ultrasound guided paracentesis. Electronically Signed: Demar Chamberlain, at 13:40 EDT , Service support ,
[2019-07-02 13:00] LABS: Cytology, Body Fluid / CSF SEE PATHOLOGY REPORT
[2019-07-02] MEDS: Albumin Human 25% (100 mL) 25 GM/100 ML BAG IV (13:34)
[2019-07-02 13:45] LABS: Bedside Glucose 133 mg/dL (70-110)
[2019-07-02 14:08] LABS: Body Fluid Mononuclear WBC # 0.039 10^3/uL; Body Fluid Mononuclear WBC % 55.8 %; Body Fluid Polynuclear WBC # 0.031 10^3/uL; Body Fluid Polynuclear WBC % 44.2 %; Body Fluid Total Cells Counted 0.114 10^3/ul
[2019-07-02 14:17] LABS: Glucose, Body Fluid 145 mg/dL (40-70); LDH,Body Fluid 36 Units/l (Not Establ.); Protein, Body Fluid 0.7 g/dL (Not Establ.)
[2019-07-02 15:02] LABS: Appearance/Body Fluid SL CLDY; Auto B Fluid Analyzer BKGD Ct COUNTS W/IN LIMITS (W/IN LIMITS); Color/Body Fluid YELLOW; Source- Body Fluid OTHER
[2019-07-02 15:04] LABS: Red Cell Count/Body Fluid 47 /mm3
[2019-07-02 15:05] LABS: Lymphocytes 36 %; Monocytes 20 %; Neutrophil (Segs) 44 %
[2019-07-02 15:07] LABS: Body Fluid QC Type(s) BF1Q
[2019-07-02 16:07] LABS: Folate, RBC (Hct) Test 22.2 % (37.5-51.0)
[2019-07-02 21:35] LABS: Bedside Glucose 123 mg/dL (70-110)
[2019-07-02 22:33] LABS: Folates, RBC Test 2662 ng/mL (>498)
[2019-07-03] VITALS (13 sets, daily range): BP systolic 99–111; BP diastolic 44–65; PULSE 86–106; RESP 16–21; TEMP 36.7–37.1; O2SAT 93–98
[2019-07-03 06:11] LABS: Hematocrit 22.7 % (40-54); Hemoglobin 7.7 g/dL (13.0-16.5); Mean Corp Hgb Conc 33.9 g/dL (32-36); Mean Corpuscular Hgb 35.8 pg (27.0-32.0); Mean Corpuscular Volume 105.6 fL (80-94); Mean Platelet Vol. 9.7 fl (6.2-12.0); POSITIVE COUNT YES; Platelet Count 82 K/mm3 (150-450); RBC Distribution Width CV 12.6 % (11.6-14.6); RBC Distribution Width SD 49.3 fl (35.1-43.9); Red Blood Count 2.15 M/mm3 (4.6-6.2); White Blood Count 9.2 K/mm3 (4.4-11.0)
[2019-07-03 06:36] LABS: Anion Gap 3 (5-15); BUN 25 mg/dL (7-18); BUN/Creat Ratio 22.9 RATIO (10-20); Chloride 102 mmol/L (98-107); Creatinine, Serum 1.09 mg/dL (0.70-1.30); EST Glomerular Filtration Rate 75 mL/min (>60); Est Glom Filt Rate - Afr Amer 91 mL/min (>60); Estimated Creatinine Clearance 82.52 ml/min; Glucose 89 mg/dL (74-106); Potassium 4.7 mmol/L (3.5-5.1); Sodium Level 134 mmol/L (136-145)
[2019-07-03] MEDS: 0.9% Saline Lock 10 ML Syringe IV ×3 (06:36→21:36)
[2019-07-03] MEDS: Furosemide 40 MG/4 ML Vial IV ×3 (06:36→21:36)
[2019-07-03 06:46] LABS: Bedside Glucose 85 mg/dL (70-110)
[2019-07-03] MEDS: Ipratropium/Albuterol Sulfate 3 ML AMPUL.NEB INHALATION ×3 (07:26→19:07)
[2019-07-03] MEDS: Folic Acid 1 MG Tablet PO (07:57)
[2019-07-03] MEDS: Thiamine Hydrochloride 100 MG Tablet PO (07:57)
[2019-07-03] MEDS: Lactulose 20 GM/30 ML UDC PO (09:33)
[2019-07-03] MEDS: Fluticasone 0.05% 1 SPRAY NASAL.SRY NASAL ×2 (09:33→21:37)
[2019-07-03 11:28] LABS: Pathologist Comment/Body Fluid Reviewed
[2019-07-03 11:50] LABS: Bedside Glucose 118 mg/dL (70-110)
--- NOTE | 2019-07-03 12:27 | PCM.PN.HOSP ---
<Edward Bob - Last Filed: 07/03/19 12:27> Patient Problems: Active and Suspected Problems Anasarca (Acute) Ascites (Acute) Reason for Visit: ascites Subjective: ongoing abd distentiona and sensation of fluid overload per pt, who wants another paracentesis. He had significant improvement overall after para yesterday. Ongoing LE edema. Vitals/I&O's: Vital Signs Temp Pulse Resp BP Pulse Ox 98.5 F 106 H 16 99/44 L 95 07/03/19 09:28 07/03/19 09:28 07/03/19 09:28 07/03/19 09:28 07/03/19 09:28 Oxygen Delivery Method [3] Room Air Oxygen Delivery Method [2] Room Air Oxygen Delivery Method [1 ( Room Air Initial Baseline)] Oxygen Delivery Method Room Air Weight: 266 lb 8.622 oz Body Mass Index (BMI) 39.2 Intake and Output for Last 24 Hours 07/01/19 07/02/19 07/03/19 23:59 23:59 23:59 Intake Total 1160 / 1160 1500 / 1500 120 / 120 Output Total 1375 / 1375 9625 / 9625 Balance -215 / -215 -8125 / -8125 120 / 120 General: Alert, Oriented x3, Cooperative HEENT: Atraumatic, PERRLA, EOMI, Normocephalic Neck: Supple, No JVD, Negative Carotid Bruits Lungs: Clear to auscultation, Normal air movement Cardiovascular: Regular rate, No murmurs Abdomen: Bowel Sounds Present, Soft, Non Tender, Obese Extremities: Capillary Refill Less than 3 Seconds, Edema - 2+ pitting edema BLE Skin: No rashes, No breakdown, - - Jaundice evident Musculoskeletal: No Tenderness to Palpation of Joints or Extremities Neurological: Cranial nerves II-XII grossly intact Psych/Mental Status: Normal Affect, Appropriate, Alert and oriented to time, place, person, mood and affect Microbiology Past 72 Hours 07/02/19 12:58 Fluid - Paracentesis (Abd) Gram Stain - Final 07/02/19 12:58 Fluid - Paracentesis (Abd) Body Fluid Culture - Preliminary No growth-Final to follow Laboratory Results 07/01/19 12:37: RBC Folate Hemolysate 591.0, RBC Folate 2662, Hematocrit 22.2 L 07/01/19 12:40: Fluid Glucose 145 H, Fluid Total Protein 0.7, Fluid LDH 36 07/01/19 12:40: Fluid pH Pending 07/01/19 19:53: Blood Type Cancelled, A1 Antigen Typing Cancelled, Rho(D) Type Cancelled, Antibody Screen NEGATIVE, Crossmatch See Detail 07/02/19 12:58: Fluid Source OTHER, Fluid Color YELLOW, Fluid Appearance SL CLDY, Fluid WBC 0.070, Fluid RBC 47, Fluid Tot Cell Count 0.114, Fld Polynuclear WBCs # 0.031, Fld Polynuclear WBCs % 44.2, Fluid Mononuclear WBCs 0.039, Fld Mononuclear WBCs % 55.8, Fluid Neutrophils 44, Fluid Lymphocytes 36, Fluid Monocytes 20, Fl Pathologist Comment Reviewed, Fluid Comment 2 SEE COMMENT 07/02/19 12:59: Miscellaneous Cytology Pending 07/02/19 13:31: POC Glucose 133 H 07/02/19 21:24: POC Glucose 123 H 07/03/19 05:52: WBC 9.2, RBC 2.15 L, Hgb 7.7 L, Hct 22.7 L, MCV 105.6 H, MCH 35.8 H, MCHC 33.9, RDW Std Deviation 49.3 H, RDW Coeff of Pravin 12.6, Plt Count 82 L, MPV 9.7 07/03/19 05:52: Sodium 134 L, Potassium 4.7, Chloride 102, Carbon Dioxide 29.0, Anion Gap 3 L, BUN 25 H, Creatinine 1.09, Estim Creat Clear Calc 82.52, Est GFR (MDRD) Af Amer 91, Est GFR (MDRD) Non-Af 75, BUN/Creatinine Ratio 22.9 H, Glucose 89, Calcium 8.0 L 07/03/19 06:35: POC Glucose 85 07/03/19 11:44: POC Glucose 118 H Current Medications Acetaminophen (Tylenol) 500 mg PO Q6H PRN PRN PRN Reason: Pain Score 1-10/10 Last Admin: 07/01/19 11:15 Dose: 500 mg Documented by: Albuterol/Ipratropium (Duoneb) 3 ml INHALATION Q6HWA.RT BELLA Last Admin: 07/03/19 07:26 Dose: 3 ml Documented by: Dextrose (D50w Syringe) 0 gm IV X1 PRN; Protocol PRN Reason: Hypoglycemia Fluticasone Propionate (Flonase Nasal [place]) 1 spray NASAL BID [facility] Last Admin: 07/03/19 09:33 Dose: 1 spray Documented by: Folic Acid (Folic Acid) 1 mg PO DAILY@0800 [facility] Last Admin: 07/03/19 07:57 Dose: 1 mg Documented by: Furosemide (Lasix) 40 mg IV Q8 [facility] Last Admin: 07/03/19 06:36 Dose: 40 mg Documented by: Glucagon () 1 mg IM .X1 PRN PRN Reason: Hypoglycemia Hydroxyzine Pamoate (Vistaril Pamoate Capsule) 25 mg PO Q6H PRN PRN PRN Reason: ITCHING Insulin Human Lispro (Humalog Kwikpen (Bkc)) 0 unit SC TIDAC [facility]; Protocol Last Admin: 07/03/19 11:45 Dose: Not Given Documented by: Lactulose (Chronulac, Cephulac) 20 gm PO DAILY [facility] Last Admin: 07/03/19 09:33 Dose: 20 gm Documented by: Multi-Ingredient Cream (Eucerin) 1 applic TOPICAL BID [facility]; Protocol Sodium Chloride () 10 - 40 ml IV UD PRN PRN Reason: SALINE FLUSH Last Admin: 07/03/19 06:36 Dose: 10 ml Documented by: Spironolactone (Aldactone) 100 mg PO DAILY [facility] Last Admin: 07/03/19 09:32 Dose: Not Given Documented by: Thiamine HCl (Vitamin B1) 100 mg PO DAILYCM [facility] Last Admin: 07/03/19 07:57 Dose: 100 mg Documented by: STROKE Vital Signs/Narrative: Vital Signs Temp Pulse Resp BP Pulse Ox 07/03/19 09:28 98.5 F 106 H 16 99/44 L 95 07/03/19 08:56 93 Medical Necessity - Tobacco Use Smoking Status: Current every day smoker Tobacco Use: Cigarettes Assessment/Plan All Active Problems Anasarca (Acute) Ascites (Acute) 1. Decompensated alcoholic liver cirrhosis - s/p paracentesis, 8100 cc removed yesterday. Had 1 unit ffp prior to para. Continue lactulose, folate, thiamine, lasix, aldactone. ammonia 59. appears jaundiced. last T bili 8.3. prn vistaril for pruritus. 2. Macrocytic anemia-transfuse 1 unit packed red blood cells today. Continue folate. iron studies without evidence of deficiency, b12 >2000. 3. Thrombocytopenia-secondary to alcoholic liver disease-trend, avoid heparin products 4. Alcoholism-reportedly quit drinking after admission to [facility] in May. 5. Tobacco abuse-patch if desired DVT ppx: SCDs This patient was seen by Edward Bob PA-C under the supervision of Dr. Lane <Luiz Lane E - Last Filed: 07/03/19 12:55> Vitals/I&O's: Vital Signs Temp Pulse Resp BP Pulse Ox 98.5 F 106 H 16 99/44 L 95 07/03/19 09:28 07/03/19 09:28 07/03/19 09:28 07/03/19 09:28 07/03/19 09:28 Oxygen Delivery Method [3] Room Air Oxygen Delivery Method [2] Room Air Oxygen Delivery Method [1 ( Room Air Initial Baseline)] Oxygen Delivery Method Room Air Weight: 266 lb 8.622 oz Body Mass Index (BMI) 39.2 Intake and Output for Last 24 Hours 07/01/19 07/02/19 07/03/19 23:59 23:59 23:59 Intake Total 1160 / 1160 1500 / 1500 120 / 120 Output Total 1375 / 1375 9625 / 9625 Balance -215 / -215 -8125 / -8125 120 / 120 Microbiology Past 72 Hours 07/02/19 12:58 Fluid - Paracentesis (Abd) Gram Stain - Final 07/02/19 12:58 Fluid - Paracentesis (Abd) Body Fluid Culture - Preliminary No growth-Final to follow Laboratory Results 07/01/19 12:37: RBC Folate Hemolysate 591.0, RBC Folate 2662, Hematocrit 22.2 L 07/01/19 12:40: Fluid Glucose 145 H, Fluid Total Protein 0.7, Fluid LDH 36 07/01/19 12:40: Fluid pH Pending 07/01/19 19:53: Blood Type Cancelled, A1 Antigen Typing Cancelled, Rho(D) Type Cancelled, Antibody Screen NEGATIVE, Crossmatch See Detail 07/02/19 12:58: Fluid Source OTHER, Fluid Color YELLOW, Fluid Appearance SL CLDY, Fluid WBC 0.070, Fluid RBC 47, Fluid Tot Cell Count 0.114, Fld Polynuclear WBCs # 0.031, Fld Polynuclear WBCs % 44.2, Fluid Mononuclear WBCs 0.039, Fld Mononuclear WBCs % 55.8, Fluid Neutrophils 44, Fluid Lymphocytes 36, Fluid Monocytes 20, Fl Pathologist Comment Reviewed, Fluid Comment 2 SEE COMMENT 07/02/19 12:59: Miscellaneous Cytology Pending 07/02/19 13:31: POC Glucose 133 H 07/02/19 21:24: POC Glucose 123 H 07/03/19 05:52: WBC 9.2, RBC 2.15 L, Hgb 7.7 L, Hct 22.7 L, MCV 105.6 H, MCH 35.8 H, MCHC 33.9, RDW Std Deviation 49.3 H, RDW Coeff of Pravin 12.6, Plt Count 82 L, MPV 9.7 07/03/19 05:52: Sodium 134 L, Potassium 4.7, Chloride 102, Carbon Dioxide 29.0, Anion Gap 3 L, BUN 25 H, Creatinine 1.09, Estim Creat Clear Calc 82.52, Est GFR (MDRD) Af Amer 91, Est GFR (MDRD) Non-Af 75, BUN/Creatinine Ratio 22.9 H, Glucose 89, Calcium 8.0 L 07/03/19 06:35: POC Glucose 85 07/03/19 11:44: POC Glucose 118 H Current Medications Acetaminophen (Tylenol) 500 mg PO Q6H PRN PRN PRN Reason: Pain Score 1-10/10 Last Admin: 07/01/19 11:15 Dose: 500 mg Documented by: Albuterol/Ipratropium (Duoneb) 3 ml INHALATION Q6HWA.RT [facility] Last Admin: 07/03/19 07:26 Dose: 3 ml Documented by: Dextrose (D50w Syringe) 0 gm IV X1 PRN; Protocol PRN Reason: Hypoglycemia Fluticasone Propionate (Flonase Nasal Nocona) 1 spray NASAL BID [facility] Last Admin: 07/03/19 09:33 Dose: 1 spray Documented by: Folic Acid (Folic Acid) 1 mg PO DAILY@0800 [facility] Last Admin: 07/03/19 07:57 Dose: 1 mg Documented by: Furosemide (Lasix) 40 mg IV Q8 [facility] Last Admin: 07/03/19 06:36 Dose: 40 mg Documented by: Glucagon () 1 mg IM .X1 PRN PRN Reason: Hypoglycemia Hydroxyzine Pamoate (Vistaril Pamoate Capsule) 25 mg PO Q6H PRN PRN PRN Reason: ITCHING Insulin Human Lispro (Humalog Kwikpen (Bkc)) 0 unit SC TIDAC [facility]; Protocol Last Admin: 07/03/19 11:45 Dose: Not Given Documented by: Lactulose (Chronulac, Cephulac) 20 gm PO DAILY [facility] Last Admin: 07/03/19 09:33 Dose: 20 gm Documented by: Multi-Ingredient Cream (Eucerin) 1 applic TOPICAL BID [facility]; Protocol Sodium Chloride () 10 - 40 ml IV UD PRN PRN Reason: SALINE FLUSH Last Admin: 07/03/19 06:36 Dose: 10 ml Documented by: Spironolactone (Aldactone) 100 mg PO DAILY [facility] Last Admin: 07/03/19 09:32 Dose: Not Given Documented by: Thiamine HCl (Vitamin B1) 100 mg PO DAILYCM [facility] Last Admin: 07/03/19 07:57 Dose: 100 mg Documented by: STROKE Vital Signs/Narrative: Vital Signs Temp Pulse Resp BP Pulse Ox 07/03/19 09:28 98.5 F 106 H 16 99/44 L 95 07/03/19 08:56 93 Assessment/Plan Hospitalist note: I am seeing this patient in conjunction with Edward Bob. I independently seen and examined the patient. Progress note above, laboratory data and imaging studies reviewed and I concur with above treatment plan. Patient reported improvement of his abdominal distention, breathing is getting easier after paracentesis. He requested another paracentesis which probably cannot be done because 8 L was taken out yesterday. He still having bilateral leg edema. His vital signs are stable. - Physical Exam General: Alert, Oriented x3, Cooperative, he is in moderate respiratory distress. HEENT: Atraumatic, PERRLA, EOMI. Neck: Supple, No JVD, Negative Carotid Bruits, Trachea Midline, Thyroid Normal. Lungs: Decreased breath sounds bilateral, occasional rhonchi, No wheeze, No rales. Cardiovascular: Regular rate, Regular Rhythm, Normal S1, Normal S2, PMI Normal. Abdomen: Soft, distended, nontender, ascites, bowel Sounds Present, No Hepato-splenomegaly. Extremities: No clubbing, No cyanosis, +++ edema Skin: No rashes, No breakdown Neurological: Cranial nerves are intact, neuro grossly intact Vital Signs are stable. Assessment and plan: #1 acute decompensated alcoholic liver cirrhosis: With ascites and leg edema. Status post paracentesis, 8 L of ascitic fluid was drained. He is on IV Lasix, Aldactone, lactulose, folic acid and thiamine. Ascitic fluid analysis consistent with transudative ascites. Ascitic fluid culture showed no growth, final is pending. Ascitic fluid cytology is pending. Plan to continue IV diuresis, continue same treatment. #2 Acute on chronic anemia: It is macrocytic anemia likely due to chronic liver disease. Today, hemoglobin remained at 7.7 g/dL. Again, patient denied any hemoptysis, hematemesis, hematochezia, melena. Serum iron is normal, ferritin is high. B12 is elevated, RBC folate is pending. Plan: Transfuse 1 unit of packed RBCs, repeat CBC tomorrow morning. #3 coagulopathy/thrombocytopenia: Again due to chronic liver disease. INR is 1.9, platelet count is 82,000 today. At this time, no active bleeding. Plan as above. #4 hyponatremia: It is chronic, likely due to chronic alcoholic liver disease. Baseline sodium has been around 125 to 130 mmol/L. Today sodium is 134, improved. #5 elevated LFT: Both direct and total bilirubin as well as liver transaminases and alkaline phosphatase are elevated and are due to liver cirrhosis. Plan to monitor. #6 other chronic medical problems: Stable, continue current medication as above. This note was generated with [employer] dictation software. It may contain incorrect words, spelling, and punctuation that were not noted in checking the note before signing. Inpatient E&M: 19779 Subs Hosp L2
[2019-07-03 13:17] LABS: LDH 187 U/L (87-241)
[2019-07-03 17:10] LABS: Bedside Glucose 111 mg/dL (70-110)
[2019-07-04 03:25] VITALS: BP 110/61; PULSE 94; RESP 18; TEMP 36.8; O2SAT 99
[2019-07-04 03:30] VITALS: O2SAT 99
[2019-07-04 06:35] LABS: Absolute Lymphocyte Count 1.32 X10^3/uL (0.83-4.51); Absolute Neutrophil Count 6.9 X10^3/uL (2.0-7.7); Basophil# 0.06 X10^3/uL; Basophil% 0.6 % (0-1); Hematocrit 25.8 % (40-54); Hemoglobin 8.7 g/dL (13.0-16.5); Lymphocyte # 1.32 X10^3/ul (4.0); Lymphocyte % 13.3 % (19-41); Mean Corp Hgb Conc 33.7 g/dL (32-36); Mean Corpuscular Hgb 34.9 pg (27.0-32.0); Mean Corpuscular Volume 103.6 fL (80-94); Mean Platelet Vol. 9.8 fl (6.2-12.0); Monocyte% 11.1 % (0-10); NRBC Flagged by Analyzer 0 % (0-5); Neutrophil # 6.89 X10^3/uL (2.7-7.7); Neutrophil % 69.5 % (47-70); POSITIVE COUNT YES; Platelet Count 85 K/mm3 (150-450); RBC Distribution Width CV 14.4 % (11.6-14.6); RBC Distribution Width SD 54.7 fl (35.1-43.9); Red Blood Count 2.49 M/mm3 (4.6-6.2); White Blood Count 9.9 K/mm3 (4.4-11.0)
[2019-07-04 06:43] LABS: International Normalized Ratio 1.9; Prothrombin Time (Protime)PT. 20.8 SECONDS (11.7-14.9)
[2019-07-04] MEDS: 0.9% Saline Lock 10 ML Syringe IV (06:44)
[2019-07-04] MEDS: Furosemide 40 MG/4 ML Vial IV (06:44)
[2019-07-04 08:06] VITALS: BP 113/61; PULSE 98; RESP 14; TEMP 36.6; O2SAT 94
[2019-07-04] MEDS: Lactulose 20 GM/30 ML UDC PO (08:09)
[2019-07-04] MEDS: Folic Acid 1 MG Tablet PO (08:09)
[2019-07-04] MEDS: Thiamine Hydrochloride 100 MG Tablet PO (08:09)
[2019-07-04] MEDS: Fluticasone 0.05% 1 SPRAY NASAL.SRY NASAL (08:10)
[2019-07-04] MEDS: Spironolactone 50 MG Tablet 100 MG PO (08:10)
[2019-07-04 09:03] LABS: ALB/GLOB Ratio 0.6 RATIO (0.9-2.4); AST(SGOT) 81 U/L (15-37); Alanine Aminotransfer ALT/SGPT 61 U/L (16-61); Alkaline Phosphatase 273 U/L (45-117); Anion Gap 6 (5-15); BUN 28 mg/dL (7-18); BUN/Creat Ratio 27.7 RATIO (10-20); Calcium,Total 8.1 mg/dL (8.5-10.1); Chloride 102 mmol/L (98-107); Creatinine, Serum 1.01 mg/dL (0.70-1.30); EST Glomerular Filtration Rate 82 mL/min (>60); Est Glom Filt Rate - Afr Amer 99 mL/min (>60); Estimated Creatinine Clearance 89.05 ml/min; Globulin 3.6 g/dL (2.2-4.2); Glucose 101 mg/dL (74-106); Potassium 4.2 mmol/L (3.5-5.1); Protein, Total 5.6 g/dL (6.4-8.2); Sodium Level 134 mmol/L (136-145)
--- NOTE | 2019-07-04 10:48 | DCINST_ITS ---
- Discharge Diagnoses Current Active Problems: Current Active and Chronic Problems Anasarca (Acute) Ascites (Acute) You will use the following diet at home:: Cardiac - 2-3 gram sodium daily, fluid restriction to 1800 cc daily, Other - no alcohol Your food should be the consistency of: Regular, Soft (bite-sized & easy to chew/swallow) Discharge Activity: Return to Normal Activity Allergies/Adverse Reactions: Allergies acetaminophen [From Vicodin] Adverse Reaction (Verified 06/30/19 18:14) Itching codeine Adverse Reaction (Verified 06/30/19 18:14) Nausea hydrocodone [From Vicodin] Adverse Reaction (Verified 06/30/19 18:14) Itching Medications to take at Discharge Hydroxyzine HCl 25 mg PO Q6H PRN PRN 06/30/19 Folic Acid 1 mg PO DAILY@0800 #30 tab 07/04/19 Furosemide 40 mg PO BID #60 tab 07/04/19 Lactulose [Chronulac] 20 gm PO DAILY #1 bottle 07/04/19 Spironolactone [Aldactone] 100 mg PO DAILY #60 tab 07/04/19 Thiamine Hydrochloride [Vitamin B1] 100 mg PO DAILYCM #30 tab 07/04/19 The following prescriptions were given: Spironolactone [Aldactone] 100 mg PO DAILY #60 tab Transmission Status: Pending to [address] Lactulose [Chronulac] 20 gm PO DAILY #1 bottle Transmission Status: Pending to [facility] [place] [address] Folic Acid 1 mg PO DAILY@0800 #30 tab Transmission Status: Pending to [address] Furosemide 40 mg PO BID #60 tab Transmission Status: Pending to [address] Thiamine Hydrochloride [Vitamin B1] 100 mg PO DAILYCM #30 tab Transmission Status: Pending to [address] Primary Care Physician: Jayesh Jeffers MD [Primary Care Provider] - Please follow up with your Primary Care Physician in: 1-2 weeks Test Results: Test results from this visit will be discussed in further detail at your follow- up appointment, if applicable. Please Follow Up With: Arturo Harden MD When: 1-2 weeks Proposed Discharge Date: 07/04/19
--- NOTE | 2019-07-04 11:11 | PHA.DC.MC ---
Pharmacy Service has performed discharge medication reconciliation and counseling for this patient. 1. LACTULOSE 20GM PO DAILY 2. FOLIC ACID 1MG PO DAILY 3. THIAMINE 100MG PO DAILYCM 4. FUROSEMIDE 40MG PO BID The patient's discharge medication list was reviewed for discrepancies and discrepancies were resolved. Home Medications Hydroxyzine HCl 25 mg PO Q6H PRN PRN 06/30/19 Folic Acid 1 mg PO DAILY@0800 #30 tab 07/04/19 Furosemide 40 mg PO BID #60 tab 07/04/19 Lactulose [Chronulac] 20 gm PO DAILY #1 bottle 07/04/19 Spironolactone [Aldactone] 100 mg PO DAILY #60 tab 07/04/19 Thiamine Hydrochloride [Vitamin B1] 100 mg PO DAILYCM #30 tab 07/04/19 The patient was counseled on the following discharge medications and changes in medications for homegoing were reviewed. The Reason for Use, instructions for use, and potential side effects were reviewed for all new medications. The patient's questions regarding all of their medications were answered. The patient was able to verbally demonstrate an understanding of their discharge medications.
--- NOTE | 2019-07-04 11:35 | DS.PCM_ITS ---
<Edward Bob - Last Filed: 07/04/19 11:35> Discharge Date and Diagnosis Date of Admission: 06/30/19 Date of Discharge: 07/04/19 - Primary Discharge Diagnosis Active and Suspected Problems Anasarca, ascites, 2/2 alcoholic cirrhosis Jaundice 2/2 cirrhosis HTN Alcoholism - Secondary Discharge Diagnosis Chronic Problems HTN (hypertension) (Chronic) Alcoholism (Chronic) Alcoholic cirrhosis (Chronic) Hospital Course and Treatment Imaging Results: RAD/Chest 1 View (Portable) IMPRESSION: Minor bibasilar interstitial thickening and discoid atelectasis in left lower lobe US/Paracentesis with US IMPRESSION: Ultrasound guided paracentesis. Using ultrasound guidance, the peritoneal cavity was accessed with a 5-[place]ican paracentesis needle/catheter system. The trocar was removed. A total of 8100 ml of dark yellow-colored fluid were removed from the peritoneal cavity. The catheter was removed and a sterile dressing was applied. Operations: None Procedures: Paracentesis Summary of Care Provided: Hospital Course: The patient is a 53 year old M with pmhx of recently diagnosed alcoholic cirrhosis who presented to the ER with c/o abdominal swelling, exertional dyspnea, LE edema, and 40 pound weight gain. He was frankly jaundiced and with anasarca. He reportedly had remained sober since his initial diagnosis and admission to in May. The patient only had an Rx for spironolactone however admitted to not taking it. Hew as placed on IV lasix and increased dose of aldactone. He was also placed on lactulose, thiamine, and folate. The following day he underwent a paracentesis with 8100 cc removed. He tolerated the procedure well. He was kept overnight and remained stable. He was transitioned to PO lasix. He was discharged on lasix, aldactone, lactulose, thiamine, and folate. He will need follow up wit gastroenterology in 1-2 weeks, and with his PCP in 1- 2 weeks. This patient was seen by Edward Bob PA-C under the supervision of Dr. Lane[] - Physical Exam Vitals/I&O's: Vital Signs Temp Pulse Resp BP Pulse Ox 98 F 98 14 113/61 94 07/04/19 08:06 07/04/19 08:06 07/04/19 08:06 07/04/19 08:06 07/04/19 08:06 Oxygen Delivery Method [3] Room Air Oxygen Delivery Method [2] Room Air Oxygen Delivery Method [1 ( Room Air Initial Baseline)] Oxygen Delivery Method Room Air Weight: 265 lb 6.985 oz Body Mass Index (BMI) 39.2 Intake and Output for Last 24 Hours 07/02/19 07/03/19 07/04/19 23:59 23:59 23:59 Intake Total 1500 / 1500 1900 / 1900 120 / 120 Output Total 9625 / 9625 3050 / 3050 Balance -8125 / -8125 -1150 / -1150 120 / 120 General: Alert, Oriented x3, Cooperative HEENT: Atraumatic, PERRLA, EOMI, Normocephalic Neck: Supple, No JVD, Negative Carotid Bruits Lungs: Clear to auscultation, Normal air movement Cardiovascular: Regular rate, No murmurs Abdomen: Bowel Sounds Present, Soft, Non Tender, Distended Extremities: Capillary Refill Less than 3 Seconds, Edema - 2+ pitting edema BLE Skin: No rashes, No breakdown, - - Jaundiced Musculoskeletal: No Tenderness to Palpation of Joints or Extremities Neurological: Cranial nerves II-XII grossly intact Psych/Mental Status: Normal Affect, Appropriate, Alert and oriented to time, place, person, mood and affect Microbiology Past 72 Hours 07/02/19 12:58 Fluid - Paracentesis (Abd) Gram Stain - Final 07/02/19 12:58 Fluid - Paracentesis (Abd) Body Fluid Culture - Preliminary No growth-Final to follow 07/02/19 12:58 Fluid - Paracentesis (Abd) Anaerobic Culture - Preliminary No growth in 48 hours. Laboratory Results 07/01/19 19:53: Blood Type Cancelled, A1 Antigen Typing Cancelled, Rho(D) Type Cancelled, Antibody Screen NEGATIVE, Crossmatch See Detail 07/02/19 12:59: Miscellaneous Cytology SEE PATHOLOGY REPORT 07/03/19 05:52: Lactate Dehydrogenase 187 07/03/19 11:44: POC Glucose 118 H 07/03/19 16:53: POC Glucose 111 H 07/04/19 06:11: WBC 9.9, RBC 2.49 L, Hgb 8.7 L, Hct 25.8 L, MCV 103.6 H, MCH 34.9 H, MCHC 33.7, RDW Std Deviation 54.7 H, RDW Coeff of Pravin 14.4, Plt Count 85 L, MPV 9.8, Immature Gran % (Auto) 3.500 H, Neut % (Auto) 69.5, Lymph % (Auto) 13.3 L, Arroyo % (Auto) 11.1 H, Eos % (Auto) 2.0, Baso % (Auto) 0.6, Absolute Neuts (auto) 6.9, Absolute Lymphs (auto) 1.32, Nucleated RBC % 0 07/04/19 06:11: Sodium 134 L, Potassium 4.2, Chloride 102, Carbon Dioxide 26.0, Anion Gap 6, BUN 28 H, Creatinine 1.01, Estim Creat Clear Calc 89.05, Est GFR (MDRD) Af Amer 99, Est GFR (MDRD) Non-Af 82, BUN/Creatinine Ratio 27.7 H, Glucose 101, Calcium 8.1 L, Total Bilirubin 8.30 H, AST 81 H, ALT 61, Alkaline Phosphatase 273 H, Total Protein 5.6 L, Albumin 2.0 L, Globulin 3.6, Albumin/Globulin Ratio 0.6 L 07/04/19 06:11: PT 20.8 H, INR 1.9 Current Medications Acetaminophen (Tylenol) 500 mg PO Q6H PRN PRN PRN Reason: Pain Score 1-10/10 Last Admin: 07/01/19 11:15 Dose: 500 mg Documented by: Albuterol/Ipratropium (Duoneb) 3 ml INHALATION Q6HWA.RT [facility] Last Admin: 07/04/19 07:20 Dose: Not Given Documented by: Dextrose (D50w Syringe) 0 gm IV X1 PRN; Protocol PRN Reason: Hypoglycemia Fluticasone Propionate (Flonase Nasal [place]) 1 spray NASAL BID [facility] Last Admin: 07/04/19 08:10 Dose: 1 spray Documented by: Folic Acid (Folic Acid) 1 mg PO DAILY@0800 [facility] Last Admin: 07/04/19 08:09 Dose: 1 mg Documented by: Furosemide (Lasix) 40 mg IV Q8 [facility] Last Admin: 07/04/19 06:44 Dose: 40 mg Documented by: Glucagon () 1 mg IM .X1 PRN PRN Reason: Hypoglycemia Hydroxyzine Pamoate (Vistaril Pamoate Capsule) 25 mg PO Q6H PRN PRN PRN Reason: ITCHING Insulin Human Lispro (Humalog Kwikpen (Bkc)) 0 unit SC TIDAC [facility]; Protocol Last Admin: 07/04/19 06:44 Dose: Not Given Documented by: Lactulose (Chronulac, Cephulac) 20 gm PO DAILY [facility] Last Admin: 07/04/19 08:09 Dose: 20 gm Documented by: Multi-Ingredient Cream (Eucerin) 1 applic TOPICAL BID [facility]; Protocol Last Admin: 07/04/19 08:11 Dose: 1 applicatio Documented by: Sodium Chloride () 10 - 40 ml IV UD PRN PRN Reason: SALINE FLUSH Last Admin: 07/04/19 06:44 Dose: 10 ml Documented by: Spironolactone (Aldactone) 100 mg PO DAILY [facility] Last Admin: 07/04/19 08:10 Dose: 100 mg Documented by: [facility] Last Admin: 07/04/19 08:09 Dose: 100 mg Documented by: Discharge Diet: 2000 mg Sodium Diet - 2-3 gram sodium restriction, 1800 cc fluid restriction Discharge Activity: Return to Normal Activity Home Medications: Medications to take at Discharge Hydroxyzine HCl 25 mg PO Q6H PRN PRN 06/30/19 Folic Acid 1 mg PO DAILY@0800 #30 tab 07/04/19 Furosemide 40 mg PO BID #60 tab 07/04/19 Lactulose [Chronulac] 20 gm PO DAILY #1 bottle 07/04/19 Spironolactone [Aldactone] 100 mg PO DAILY #60 tab 07/04/19 Thiamine Hydrochloride [Vitamin B1] 100 mg PO DAILYCM #30 tab 07/04/19 Following Prescrptions Were Given to Patient: Spironolactone [Aldactone] 100 mg PO DAILY #60 tab Transmission Status: Received by SWETA HENSON RD Lactulose [Chronulac] 20 gm PO DAILY #1 bottle Transmission Status: Received by SWETA [facility] ANA LUISA Folic Acid 1 mg PO DAILY@0800 #30 tab Transmission Status: Received by SWETA HENSON RD Furosemide 40 mg PO BID #60 tab Transmission Status: Received by SWETA [facility] ANA LUISA Thiamine Hydrochloride [Vitamin B1] 100 mg PO DAILYCM #30 tab Transmission Status: Received by [facility] [facility] Primary Care Physician: Jayesh Jeffers MD [Primary Care Provider] - Please follow up with your Primary Care Physician in: 1-2 weeks Please Follow Up With: Arturo Harden MD When: 1-2 weeks Disposition: Home Minutes spent on discharge:: 35 Patient Condition:: Stable Medical Necessity - Tobacco Use Smoking Status: Current every day smoker Tobacco Use: Cigarettes Meaningful Use Info Meaningful Use Diagnoses (Choose all that apply): None applicable <Luiz Lane E - Last Filed: 07/04/19 12:42> Discharge Date and Diagnosis - Primary Discharge Diagnosis Acute on chronic anemia required blood transfusion. Acute decompensated liver cirrhosis, ascites/anasarca, without evidence of hepatic encephalopathy - Secondary Discharge Diagnosis Chronic Problems HTN (hypertension) (Chronic) Alcoholism (Chronic) Alcoholic cirrhosis (Chronic) Hospital Course and Treatment Summary of Care Provided: Hospitalist note: Discharge summary above reviewed and I concur with above discharge and treatment plan. Patient was admitted because of shortness of breath, leg swelling and abdominal distention in context of recent diagnosis of alcoholic liver cirrhosis. He was found to have acute decompensated liver cirrhosis with severe ascites, anasarca and he developed acute on chronic renal required blood transfusion. On admission, chest x-ray showed no acute findings. EKG revealed no acute segment changes. This ascites and anasarca attributed to alcoholic liver cirrhosis. He was treated with IV Lasix for diuresis, Aldactone, lactulose and he underwent for paracentesis. Around 8 L of ascitic fluid taken out which was consistent with transudative fluid. Ascitic fluid culture showed no growth in 48 hours. Ascitic fluid cytology was negative for malignant cells. He developed acute on chronic macrocytic anemia that required blood transfusion. There was no evidence of active bleeding. Patient received 1 unit of packed RBCs and hemoglobin upon discharge was 8.7 g/dL. He did have chronic thrombocytopenia and his platelet count remained around 80,000. Also, he had chronic hyponatremia and with IV diuresis, sodium level improved. After paracentesis, patient symptoms of shortness of breath improved and he felt better. Leg edema persists. I explained to the patient multiple times the pathology of the alcoholic liver cirrhosis and possible complications and decompensation. I explained to the patient that he must be on diuretics to get rid of the excess extravascular fluid, must be on lactulose and have at least 2 bowel movement every day and I expressed the importance of follow-up with PCP for arrangement for outpatient paracentesis that should be done regularly based on how fast ascites will accumulate and also are highly commended GI referral as outpatient as patient probably will need upper EGD to rule out esophageal varices. Patient discharged home in a stable medical condition, discharged on Lasix and Spironolactone, discharged on lactulose, folic acid, thiamine, recommended follow-up with PCP this coming week and he will need referral to GI as outpatient in 1 to 2 weeks. - Physical Exam General: Alert, Oriented x3, Cooperative, he is in moderate respiratory distress. HEENT: Atraumatic, PERRLA, EOMI. Neck: Supple, No JVD, Negative Carotid Bruits, Trachea Midline, Thyroid Normal. Lungs: Decreased breath sounds bilateral, occasional rhonchi, No wheeze, No rales. Cardiovascular: Regular rate, Regular Rhythm, Normal S1, Normal S2, PMI Normal. Abdomen: Soft, distended, nontender, ascites, bowel Sounds Present, No Hepato- splenomegaly. Extremities: No clubbing, No cyanosis, +++ edema Skin: No rashes, No breakdown Neurological: Cranial nerves are intact, neuro grossly intact Vital Signs are stable. This note was generated with ProQuo dictation software. It may contain incorrect words, spelling, and punctuation that were not noted in checking the note before signing. - Physical Exam Vitals/I&O's: Vital Signs Temp Pulse Resp BP Pulse Ox 98 F 98 14 113/61 94 07/04/19 08:06 07/04/19 08:06 07/04/19 08:06 07/04/19 08:06 07/04/19 08:06 Oxygen Delivery Method [3] Room Air Oxygen Delivery Method [2] Room Air Oxygen Delivery Method [1 ( Room Air Initial Baseline)] Oxygen Delivery Method Room Air Weight: 265 lb 6.985 oz Body Mass Index (BMI) 39.2 Intake and Output for Last 24 Hours 07/02/19 07/03/19 07/04/19 23:59 23:59 23:59 Intake Total 1500 / 1500 1900 / 1900 120 / 120 Output Total 9625 / 9625 3050 / 3050 Balance -8125 / -8125 -1150 / -1150 120 / 120 Microbiology Past 72 Hours 07/02/19 12:58 Fluid - Paracentesis (Abd) Gram Stain - Final 07/02/19 12:58 Fluid - Paracentesis (Abd) Body Fluid Culture - Preliminary No growth-Final to follow 07/02/19 12:58 Fluid - Paracentesis (Abd) Anaerobic Culture - Preliminary No growth in 48 hours. Laboratory Results 07/01/19 19:53: Blood Type Cancelled, A1 Antigen Typing Cancelled, Rho(D) Type Cancelled, Antibody Screen NEGATIVE, Crossmatch See Detail 07/02/19 12:59: Miscellaneous Cytology SEE PATHOLOGY REPORT 07/03/19 05:52: Lactate Dehydrogenase 187 07/03/19 16:53: POC Glucose 111 H 07/04/19 06:11: WBC 9.9, RBC 2.49 L, Hgb 8.7 L, Hct 25.8 L, MCV 103.6 H, MCH 34.9 H, MCHC 33.7, RDW Std Deviation 54.7 H, RDW Coeff of Pravin 14.4, Plt Count 85 L, MPV 9.8, Immature Gran % (Auto) 3.500 H, Neut % (Auto) 69.5, Lymph % (Auto) 13.3 L, Arroyo % (Auto) 11.1 H, Eos % (Auto) 2.0, Baso % (Auto) 0.6, Absolute Neuts (auto) 6.9, Absolute Lymphs (auto) 1.32, Nucleated RBC % 0 07/04/19 06:11: Sodium 134 L, Potassium 4.2, Chloride 102, Carbon Dioxide 26.0, Anion Gap 6, BUN 28 H, Creatinine 1.01, Estim Creat Clear Calc 89.05, Est GFR (MDRD) Af Amer 99, Est GFR (MDRD) Non-Af 82, BUN/Creatinine Ratio 27.7 H, Glucose 101, Calcium 8.1 L, Total Bilirubin 8.30 H, AST 81 H, ALT 61, Alkaline Phosphatase 273 H, Total Protein 5.6 L, Albumin 2.0 L, Globulin 3.6, Albumin/Globulin Ratio 0.6 L 07/04/19 06:11: PT 20.8 H, INR 1.9 Disposition: Home Minutes spent on discharge:: 32 Patient Condition:: Stable Meaningful Use Info Meaningful Use Diagnoses (Choose all that apply): None applicable Inpatient E&M: 84046 Disch Hosp
[2019-07-04 17:58] LABS: pH, Body Fluid 11254 7.5 (Not Estab.)
[2019-07-07 07:15] LABS: Bedside Glucose 114 mg/dL (70-110)
[2019-07-07 07:21] LABS: Bedside Glucose 95 mg/dL (70-110)
--- NOTE | 2019-07-07 14:06 | CASEMGMT ---
LAKESHIA CM DC PHONE CALL DC DATE: 07.04.2019 DC DISPOSITION: Home DC DIAGNOSIS: Anasarca, ascites secondary to ETOH cirrhosis LACE/STRATA: 02/06 F/U APPTS MADE PRIOR TO DC: yes Attempted call, no answer and message machine had no name identifier. Dali GOTTIN RN ACM
== END 2019-07-04 11:30 | disposition home or self-care (01) | DRG 433 ==
LOC: ED 19:20 → PCU 22:16
PROVIDERS: Nurse Practitioner Family; Physician Assistant; Emergency Provider Emergency Medicine; PCP Family Medicine; Visit Provider Hospitalist
DX: K70.31 Alcoholic cirrhosis of liver with ascites (principal); K76.6 Portal hypertension; E87.1 Hypo-osmolality and hyponatremia; D68.4 Acquired coagulation factor deficiency; I10 Essential (primary) hypertension; F10.20 Alcohol dependence, uncomplicated; Z79.899 Other long term (current) drug therapy; R73.9 Hyperglycemia, unspecified; F17.210 Nicotine dependence, cigarettes, uncomplicated; F41.0 Panic disorder [episodic paroxysmal anxiety]; D53.9 Nutritional anemia, unspecified; D69.6 Thrombocytopenia, unspecified; D63.8 Anemia in other chronic diseases classified elsewhere; R60.0 Localized edema; Z91.14 Patient's other noncompliance with medication regimen
CPT/HCPCS: 36415; 49083; 71045; 80048; 80053; 80076; 82140; 82607; 82728; 82747; 82945; 82962; 83036; 83540; 83550; 83615; 83690; 83986; 84157; 85014; 85025; 85027; 85610; 85730; 86850; 86900; 86901; 86920; 86922; 87070; 87075; 87205; 88108; 88305; 88313; 89050; 93005; 94640; 97802; 99285; 99406; J7040; P9016; P9017; P9047; A4216; J1940

== ENCOUNTER → 2019-07-11 13:44 | Outpatient (CLI) | payer OTHER, SELFPAY ==
[2019-06-30 22:40] VITALS: BMI 39.2
--- NOTE | 2019-07-11 13:50 | US_ITS ---
PROCEDURE: ULTRASOUND GUIDED PARACENTESIS CLINICAL HISTORY: Male, 53 years old. ASCITES CONSENT: The risks, benefits and alternatives to the procedure were explained to the patient, and the patient agreed to the procedure and signed the consent. 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 PROCEDURE/TECHNIQUE: The risks, benefits, and alternatives to the procedure were explained to patient, and the patient agreed to the procedure and signed a consent form for the procedure. TECHNIQUE: Under the ultrasound guidance using sterile technique and after infiltration of the skin and subcutaneous soft tissues with 10 mL of lidocaine 1% a 5 Spanish drainage catheter is introduced in the lower part of the abdomen. 43626 mL of fluid were removed sample sent to lab for evaluation. The patient tolerated the procedure there was no immediate complication. FINDINGS: FLUID PRE-PROCEDURE There is posterior enhancement. The findings appear anechoic. There is no loculation. FLUID POST-PROCEDURE Amount of fluid drained: 68035 ml. US/Paracentesis with US IMPRESSION: Successful ultrasound-guided paracentesis. Electronically Signed: Karyn Stafford, at 15:29 EDT Tel , Service support ,
[2019-07-11 15:14] VITALS: BP 110/56; PULSE 93; RESP 20; O2SAT 99
== END ==
PROVIDERS: PCP Family Medicine; Referring Provider Family Medicine; Visit Provider Family Medicine
DX: K74.60 Unspecified cirrhosis of liver (principal); R18.8 Other ascites
CPT/HCPCS: 49083

== ENCOUNTER 2019-07-16 14:44 | Emergency (ER) | payer OTHER, SELFPAY ==
[2019-06-30 22:40] VITALS: BMI 39.2
[2019-07-16 14:45] VITALS: BP 136/77; PULSE 114; RESP 16; TEMP 37.1; O2SAT 98; BMI 40.8
--- NOTE | 2019-07-16 15:11 | ED.DCSUM_ITS ---
- ER Visit Summary Date of Service: 07/16/19 Chief Complaint: Drainage from paracentesis site History of Present Illness: The patient is a 53 M who presents with drainage from his paracentesis site that began again today. Patient states that his paracentesis was 5 days ago. Patient states he took the dressing off and thinks he accidentally pulled off a scab. Patient states that it has been draining yellow fluid for the past several hours. Patient denies any fevers or chills. Patient denies any purulent discharge or drainage. Patient denies any redness or swelling around the site. Patient denies any abdominal pain. Patient denies any nausea or vomiting. Physical Examination: Vital signs are stable. Patient is afebrile. Patient is in no acute distress. Oral mucosa is pink and moist. Neck is supple. Trachea is midline. There is no JVD. Heart was regular rate and rhythm. Lungs are clear and equal bilaterally. Abdomen is soft. Bowel sounds are normal. There is no tenderness. There is ascites noted. There is a small amount of serous drainage from the paracentesis site. There is no surrounding erythema. There is no purulent drainage. There is no rebound or guarding. Cranial nerves II through XII are intact. There are no focal motor or sensory deficits. Test Results: CBC shows a slight leukocytosis of 14.2. Hemoglobin was stable at 9.0. Total bilirubin was improved at 4.40. Alk phos was stable at 321. PT with INR and PTT were essentially within normal limits. Emergency Department Course and Treatment: Bulky dressing was applied to to the paracentesis site. The drainage stopped. Patient wants to go home. Patient was instructed to follow-up with his primary care physician in 5 to 7 days. Patient understood and was agreeable with the plan. Patient was instructed retu rn if worse in any way. All questions were answered. Disposition: Discharge home Impression: Paracentesis site drainage This note was generated with Opiatalk dictation software. It may contain incorrect words, spelling, and punctuation that were not noted in review of the chart prior to signing ED Disposition - Plan for ED Patient: Disposition: Home or Assisted Living Diagnosis: S/P abdominal paracentesis, Drainage from wound, Alcoholic cirrhosis Instructions: ED Wound Care Referrals: Jayesh Jeffers MD [Primary Care Provider] - 5-7 Days
[2019-07-16 15:28] LABS: Absolute Lymphocyte Count 1.23 X10^3/uL (0.83-4.51); Absolute Neutrophil Count 10.6 X10^3/uL (2.0-7.7); Basophil# 0.11 X10^3/uL; Basophil% 0.8 % (0-1); Eosinophils% 1.4 % (0-5); Hematocrit 26.9 % (40-54); Lymphocyte # 1.23 X10^3/ul (4.0); Lymphocyte % 8.6 % (19-41); Mean Corp Hgb Conc 33.5 g/dL (32-36); Mean Corpuscular Volume 101.5 fL (80-94); Mean Platelet Vol. 9.5 fl (6.2-12.0); Monocyte# 1.41 X10^3/uL; Monocyte% 9.9 % (0-10); NRBC Flagged by Analyzer 0 % (0-5); Neutrophil # 10.57 X10^3/uL (2.7-7.7); Neutrophil % 74.3 % (47-70); Platelet Count 111 K/mm3 (150-450); RBC Distribution Width SD 48.6 fl (35.1-43.9); Red Blood Count 2.65 M/mm3 (4.6-6.2); White Blood Count 14.2 K/mm3 (4.4-11.0)
[2019-07-16 15:44] LABS: International Normalized Ratio 1.8
[2019-07-16 15:46] LABS: Partial Thromboplast Time 42.1 Seconds (24.1-36.2)
[2019-07-16 15:55] LABS: BUN 21 mg/dL (7-18); Creatinine, Serum 1.06 mg/dL (0.70-1.30); EST Glomerular Filtration Rate 77 mL/min (>60); Estimated Creatinine Clearance 84.85 ml/min; Glucose 108 mg/dL (74-106)
[2019-07-16 15:56] LABS: ALB/GLOB Ratio 0.5 RATIO (0.9-2.4); AST(SGOT) 73 U/L (15-37); Alanine Aminotransfer ALT/SGPT 51 U/L (16-61); Albumin, Serum 1.8 g/dL (3.2-5.0); Alkaline Phosphatase 321 U/L (45-117); Anion Gap 4 (5-15); BUN/Creat Ratio 19.8 RATIO (10-20); Chloride 96 mmol/L (98-107); Est Glom Filt Rate - Afr Amer 93 mL/min (>60); Globulin 3.9 g/dL (2.2-4.2); Potassium 4.7 mmol/L (3.5-5.1); Protein, Total 5.7 g/dL (6.4-8.2); Sodium Level 125 mmol/L (136-145)
--- NOTE | 2019-07-16 16:48 | ED.RN ---
NO DRAINAGE NOTED FROM PARACENTESIS SITE SINCE APPLICATION OF DRESSING IN ED.
[2019-07-16 17:06] VITALS: BP 120/69; PULSE 66; RESP 19; O2SAT 96
--- NOTE | 2019-07-16 17:13 | ED.RN ---
PT GIVEN WRITTEN DISCHARGE INSTRUCTIONS AND EDUCATED ON INSTRUCTIONS BY THIS RN. PT VERBALIZES UNDERSTANDING OF INSTRUCTIONS AND FOLLOW UP. PT DRESSES SELF AND AMBULATES OUT OF DEPT. BY SELF, NO ASSISTANCE FROM STAFF NEEDED.
== END 2019-07-16 17:14 | disposition home or self-care (01) ==
PROVIDERS: Emergency Provider Emergency Medicine; PCP Family Medicine
DX: L76.82 Other postprocedural complications of skin and subcutaneous tissue (principal); K70.30 Alcoholic cirrhosis of liver without ascites; E66.9 Obesity, unspecified; R06.09 Other forms of dyspnea; F17.210 Nicotine dependence, cigarettes, uncomplicated
CPT/HCPCS: 36415; 80053; 85025; 85610; 85730; 99281

== ENCOUNTER → 2019-07-18 | Outpatient (CLI) | payer OTHER, SELFPAY ==
[2019-07-16 14:45] VITALS: BMI 40.8
--- NOTE | 2019-07-18 10:17 | US_ITS ---
PROCEDURE: Ultrasound guided paracentesis. DATE OF EXAMINATION: July 18, 2019.. INDICATION: Male, 53 years old. Ascites. PHYSICIAN: Demar Chamberlain M.D. TECHNIQUE: The risks, benefits, and alternatives to the procedure were explained to the patient. The specific risks of bleeding, infection, and damage to bowel were detailed and accepted. Witnessed informed consent was obtained. The abdomen was ultrasonographically surveyed. An appropriate pocket of fluid was identified at the left lower quadrant. The skin were cleaned and prepped in the usual sterile fashion. Using ultrasound guidance, the peritoneal cavity was accessed with a 5-Argentine paracentesis needle/catheter system. The trocar was removed. A total of 9950 ml of russel-colored fluid were removed from the peritoneal cavity. The catheter was removed and a sterile dressing was applied. The procedure was well tolerated. US/Paracentesis with US IMPRESSION: Ultrasound guided paracentesis. Electronically Signed: Demar Chamberlain, at 13:36 EDT , Service support ,
[2019-07-18 10:38] VITALS: BP 105/53; BP 105/56; BP 107/61; BP 109/52; BP 116/71; PULSE 87; PULSE 90; PULSE 91; PULSE 92; RESP 16; RESP 18; RESP 20; TEMP 36.9; O2SAT 100; O2SAT 99
== END | disposition home or self-care (01) ==
LOC: US 10:15
PROVIDERS: PCP Family Medicine; Referring Provider Family Medicine; Visit Provider Family Medicine
DX: K74.60 Unspecified cirrhosis of liver (principal); R18.8 Other ascites
CPT/HCPCS: 49083

== ENCOUNTER → 2019-07-22 | Outpatient (CLI) | payer OTHER, SELFPAY ==
[2019-07-16 14:45] VITALS: BMI 40.8
--- NOTE | 2019-07-22 12:16 | US_ITS ---
PROCEDURE: Ultrasound guided paracentesis. DATE OF EXAMINATION: July 22, 2019. INDICATION: Male, 53 years old. Ascites. PHYSICIAN: Demar Chamberlain M.D. TECHNIQUE: The risks, benefits, and alternatives to the procedure were explained to the patient. The specific risks of bleeding, infection, and damage to bowel were detailed and accepted. Witnessed informed consent was obtained. The abdomen was ultrasonographically surveyed. An appropriate pocket of fluid was identified at the right lower quadrant. The skin were cleaned and prepped in the usual sterile fashion. Using ultrasound guidance, the peritoneal cavity was accessed with a 5-Tunisian paracentesis needle/catheter system. The trocar was removed. A total of 8700 ml of russel-colored fluid were removed from the peritoneal cavity. The catheter was removed and a sterile dressing was applied. The procedure was well tolerated. US/Paracentesis with US IMPRESSION: Ultrasound guided paracentesis. Electronically Signed: Demar Chamberlain, at 14:18 EDT , Service support ,
[2019-07-22 12:45] VITALS: BP 113/65; BP 88/43; BP 89/41; BP 94/41; BP 96/54; PULSE 104; PULSE 80; PULSE 93; PULSE 94; PULSE 96; RESP 16; RESP 18; TEMP 36.6; O2SAT 100; O2SAT 96; O2SAT 97
== END | disposition home or self-care (01) ==
LOC: US 12:11
PROVIDERS: PCP Family Medicine; Visit Provider Family Medicine
DX: R18.8 Other ascites (principal)
CPT/HCPCS: 49083

== ENCOUNTER 2019-07-25 10:10 | Inpatient (IN) | payer OTHER, SELFPAY ==
[2019-07-25] VITALS (24 sets, daily range): BP systolic 73–119; BP diastolic 27–54; PULSE 85–120; RESP 10–22; TEMP 36.2–37; O2SAT 84–100; BMI 33.0; BMI 36.4
--- NOTE | 2019-07-25 | FLU_PTH ---
PATIENT: JACLYN JO LOC: [facility] U#:[id number] AGE/SX: 53/M ROOM: [facility] RE07/25/[address]: Dr. Ganga Vega DO : 1965 BED: 1 DIS: 07/29/2019 SPEC #: [id number] RECD: 07/25/19 13:57 STATUS: PRICILA AMY #: [id number] JAYMIE: 07/25/19 00:[address]: Ganga Vega DEPT: CYTOLOGY RECD BY: Peewee Roberts ENTERED: 07/28/19 08:29 SP TYPE: Fluid OTHR DR: MD Dr. Gabbi Granados MD Dr. Robert Leininger, MD Dr. William Lago, MD Tissues: PARACENTESIS FLUID Procedures: Special Stain Group II Surgery Specimen Level IV Cytospin Fluid HEADER OPERATION: Ultrasound-guided right paracentesis PRE-OP DIAGNOSIS: Ascites TISSUE SUBMITTED: Paracentesis fluid for cytology DIAGNOSIS CYTOLOGY Paracentesis fluid for cytology (cytospin and cell block): Negative for malignant cells. Acute inflammation. See comment. JORGE:jemal 07/29/19 COMMENT Clinical correlation and appropriate follow up are necessary. Please make reference to previous specimen ([id number]) paracentesis fluid for cytology with diagnosis of negative for malignant cells. CYTOLOGY STUDY Slides are reviewed. CYTOLOGY GROSS Received is 100 ml of yellow cloudy fluid labeled with the patient's name and and designated per the requisition as paracentesis. Submitted for cytology preparation including cell block. / jemal 07/28/19 TC:2 CPT: 89059, 16665
--- NOTE | 2019-07-25 10:23 | EKG12_ITS ---
Test Reason : Blood Pressure : / mmHG Vent. Rate : 115 BPM Atrial Rate : 115 BPM P-R Int : 154 ms QRS Dur : 088 ms QT Int : 330 ms P-R-T Axes : 064 058 063 degrees QTc Int : 456 ms Sinus tachycardia Otherwise normal ECG Confirmed by BHANU MURRY, DANK ([id number]), editor newspaper AZIZA MCCLELLAN ([id number]) on 07/28/2019 1:25:46 PM Referred By: TOBY Confirmed By:DANK DRUMMOND MD
--- NOTE | 2019-07-25 10:23 | RAD_ITS ---
STUDY: X-RAY CHEST REASON FOR EXAM: Male, 53 years old. DYSPNEA TECHNIQUE: Single AP portable view of the chest. COMPARISON: Comparison is made with prior study dated June 30, 2019. FINDINGS: The lungs are clear and expanded. Scattered calcified granulomas. There is no demonstrated pleural abnormality. Normal size heart. Normal mediastinum and sanju. Normal visualized pulmonary arteries. Normal visualized aortic arch and descending thoracic aorta. Normal visualized thoracic spine. Normal visualized ribs, clavicles, and shoulders. There is no demonstrated abnormality of the visualized soft tissue structures of the upper abdomen. RAD/Chest 1 View (Portable) IMPRESSION: Normal x-ray examination of the chest. Electronically Signed: Demar Chamberlain, at 11:14 EDT , Service support ,
--- NOTE | 2019-07-25 10:31 | ED.DCSUM_ITS ---
History of Present Illness Informant: Patient Onset: Yesterday Context: Gradual Onset Timing: Continuous Quality: JIANG Location: chest Current Severity: Severe Maximum Severity: Severe Worsened by: exertion Relieved by: rest Associated Symptoms: Lower extremity edema, ascites, productive cough w/ sputum, dyspnea on exe Narrative: 53-year-old male history of alcoholic cirrhosis presents to the emergency department with abnormal outpatient labs. Patient has been getting weekly paracentesis which starting this week was increased to twice weekly and his last paracentesis was done 3 days ago. He was having increasing abdominal ascites which is why they increased the frequency of his paracentesis but he had outpatient labs done yesterday which showed a sodium of 116, potassium 5.2, creatinine 1.74, with a white blood cell count of 42 and a hemoglobin of 9.1. His platelet count was 143. Patient does have a productive cough with sputum and some dyspnea on exertion but he is not short of breath at rest he has no chest pain he feels fullness abdomen but is not having any pain he is not having vomiting or diarrhea and denies fevers. Denies symptoms of bleeding. Denies recent steroid usage. <Todd Moore - Last Filed: 07/25/19 16:41> <Charline Austin - Last Filed: 08/06/19 00:13> Chief Complaint: Abn Labs Past Medical History Prior records reviewed: Yes Past Medical History: - - Alcoholic cirrhosis, hypertension, hyperlipidemia Surgical History: - - Inguinal and umbilical hernia repair, colonoscopy Smoking Status: Current every day smoker - Family History Maternal Family History: Reports: - - This is <Todd Moore - Last Filed: 07/25/19 16:41> <Charline Austin - Last Filed: 08/06/19 00:13> - Allergies and Home Meds Allergies/Adverse Reactions: Allergies lisinopril Allergy (Verified 07/25/19 10:56) PT UNSURE OF REACTION codeine Adverse Reaction (Verified 07/25/19 10:10) Nausea hydrocodone [From Vicodin] Adverse Reaction (Verified 07/25/19 10:10) Itching Review of Systems All systems negative except as indicated General: Reports: Malaise. Denies: Chills, Fever, Sweats Eyes: Denies: Visual changes - bilaterally, Blurred Vision - bilaterally, Diplopia ENT: Denies: Rhinorrhea, Sore throat Cardiovascular: Denies: Chest pain, Palpitations Respiratory: Reports: Dyspnea, Cough, Sputum, Dyspnea on exertion, Orthopnea. Denies: Paroxysmal nocturnal dyspnea Gastrointestinal: Reports: Abdominal pain. Denies: Nausea, Vomiting, Diarrhea, Constipation, Melena, Hematochezia Genitourinary: Denies: Dysuria, Hematuria, Frequency Musculoskeletal: Reports: Swelling. Denies: Myalgias, Arthralgias, Neck pain, Back pain, Extremity Pain Skin: Denies: Rash, Wounds Neurological: Denies: Headache, Weakness, Numbness Hematologic: Reports: Easy bruising. Denies: Easy bleeding <Todd Moore - Last Filed: 07/25/19 16:41> Physical Exam Vital Signs/Narrative: Vital Signs Temp Pulse Resp BP Pulse Ox 07/25/19 10:11 97.9 F 120 H 20 H 119/54 L 97 Inital Vital Signs reviewed: Yes General: Well nourished, Well developed, Obese, No Acute Distress Head: Normocephalic, Atraumatic Eyes: Perrl, EOMI ENT: Moist mucous membranes, No rhinorrhea Neck: Supple, Nontender Cardiovascular: Regular rate, Regular rhythm, No murmurs Respiratory: No distress, Chest nontender, Diminished, Decreased Air Movement Abdomen: Soft, Nontender, Normal bowel sounds, - - Very significant ascites. Back: Nontender, Normal Inspection Extremities: Nontender, No edema Skin: Normal color, No rash, No Trauma Neurological: Alert, Oriented x3, Cranial nerves II-XII grossly intact, Normal Strength, Normal Sensation Psychological: Normal affect, Normal Mood <Todd Moore - Last Filed: 07/25/19 16:41> Diagnostic/Tx/Re-eval Chest X-Ray - ED: 1 View, Read by ED Physician, Read by Radiologist, No Acute Disease Laboratory Tests 07/25/19 07/25/19 07/25/19 Range/Units 10:47 10:47 10:47 WBC (4.4-11.0) K/mm3 RBC (4.6-6.2) M/mm3 Hgb (13.0-16.5) g/dL Hct (40-54) % MCV (80-94) fL MCH (27.0-32.0) pg MCHC (32-36) g/dL RDW Std Deviation (35.1-43.9) fl RDW Coeff of Pravin (11.6-14.6) % Plt Count (150-450) K/mm3 MPV (6.2-12.0) fl Immature Gran % (Auto) (0.0-0.9) % Neut % (Auto) (47-70) % Lymph % (Auto) (19-41) % [place] % (Auto) (0-10) % Eos % (Auto) (0-5) % Baso % (Auto) (0-1) % Absolute Neuts (auto) (2.0-7.7) X10^3/uL Absolute Lymphs (auto) (0.83-4.51) X10^3/uL Nucleated RBC % (0-5) % Differential Comment Diff Path Review PT (11.7-14.9) SECONDS INR Sodium 119 L* (136-145) mmol/L Potassium 4.8 (3.5-5.1) mmol/L Chloride 93 L (98-107) mmol/L Carbon Dioxide 18.0 L (21.0-32.0) mmol/L Anion Gap 8 (5-15) BUN 49 H (7-18) mg/dL Creatinine 1.95 H (0.70-1.30) mg/dL Estim Creat Clear Calc 46.12 ml/min Est GFR (MDRD) Af Amer 46 L (>60) mL/min Est GFR (MDRD) Non-Af 38 L (>60) mL/min BUN/Creatinine Ratio 25.1 H (10-20) RATIO Glucose 119 H (74-106) mg/dL Lactic Acid 2.2 H* (0.4-1.9) mmol/L Calcium 7.3 L (8.5-10.1) mg/dL Total Bilirubin 3.90 H (0.20-1.00) mg/dL Direct Bilirubin 3.08 H (0.00-0.30) mg/dL AST 55 H (15-37) U/L ALT 41 (16-61) U/L Alkaline Phosphatase 284 H (45-117) U/L Ammonia 49.0 H (11-32) umol/L Troponin I < 0.015 (<0.045) ng/mL Total Protein 5.8 L (6.4-8.2) g/dL Albumin 1.6 L (3.2-5.0) g/dL Globulin 4.2 (2.2-4.2) g/dL Lipase 208 (73-393) U/L COVID-19 (JOAN) (Not Detect) 07/25/19 07/25/19 07/25/19 Range/Units 10:47 10:47 10:40 WBC 32.8 H* (4.4-11.0) K/mm3 RBC 2.66 L (4.6-6.2) M/mm3 Hgb 9.0 L (13.0-16.5) g/dL Hct 25.0 L (40-54) % MCV 94.0 (80-94) fL MCH 33.8 H (27.0-32.0) pg MCHC 36.0 (32-36) g/dL RDW Std Deviation 44.4 H (35.1-43.9) fl RDW Coeff of Pravin 13.0 (11.6-14.6) % Plt Count 159 (150-450) K/mm3 MPV 9.7 (6.2-12.0) fl Immature Gran % (Auto) 3.800 H (0.0-0.9) % Neut % (Auto) 84.1 H (47-70) % Lymph % (Auto) 3.3 L (19-41) % [place] % (Auto) 7.6 (0-10) % Eos % (Auto) 0.9 (0-5) % Baso % (Auto) 0.3 (0-1) % Absolute Neuts (auto) 27.6 H (2.0-7.7) X10^3/uL Absolute Lymphs (auto) 1.07 (0.83-4.51) X10^3/uL Nucleated RBC % 0 (0-5) % Differential Comment SEVERAL BANDS NOTED Diff Path Review May foll PT 22.7 H (11.7-14.9) SECONDS INR 2.1 Sodium (136-145) mmol/L Potassium (3.5-5.1) mmol/L Chloride (98-107) mmol/L Carbon Dioxide (21.0-32.0) mmol/L Anion Gap (5-15) BUN (7-18) mg/dL Creatinine (0.70-1.30) mg/dL Estim Creat Clear Calc ml/min Est GFR (MDRD) Af Amer (>60) mL/min Est GFR (MDRD) Non-Af (>60) mL/min BUN/Creatinine Ratio (10-20) RATIO Glucose (74-106) mg/dL Lactic Acid (0.4-1.9) mmol/L Calcium (8.5-10.1) mg/dL Total Bilirubin (0.20-1.00) mg/dL Direct Bilirubin (0.00-0.30) mg/dL AST (15-37) U/L ALT (16-61) U/L Alkaline Phosphatase (45-117) U/L Ammonia (11-32) umol/L Troponin I (<0.045) ng/mL Total Protein (6.4-8.2) g/dL Albumin (3.2-5.0) g/dL Globulin (2.2-4.2) g/dL Lipase (73-393) U/L COVID-19 (JOAN) Negative (Not Detect) - Rhythm Strip Rhythm Strip: Sinus Rhythm Rate: 90 Ectopy: None - Medical Decision Making Patient's vital signs are stable. His white blood cell count was 32, his sodium was 119, chest x-ray was unremarkable, his EKG was unremarkable. Lactic acid was elevated. Liver function tests are elevated consistent with previous. His INR is elevated as well consistent with previous. Cardiac enzymes are negative. Urinalysis negative. Patient remains hemodynamically stable. I discussed with hospitalist. We do not have a source for his white blood cell count but it is down from yesterday, when it was 43, he is not having abdominal pain, his chest x-ray is unremarkable, and he has normal mental status. Hospitalist was comfortable with admission. Requested we order paracentesis which was scheduled to be completed later this afternoon. he was started on maintenance fluids per hospitalist request <Todd Moore - Last Filed: 07/25/19 16:41> - Medical Decision Making Patient evaluated independently and in conjunction with physician retail event and sales assistant. Agree with note above unless documented otherwise. He is evaluated for abnormal outpatient labs of hyponatremia and significant leukocytosis. Patient has significant liver disease with recurrent ascites that requires regular paracentesis. You supposed to have a paracentesis today. On physical exam patient has ascites, rhonchorous breath sounds and significant anasarca. He is not have any focal sign of infection and his abdomen is soft. Standpoint of abdominal pain and I have a low suspicion for spontaneous bacterial peritonitis. Patient does have a leukocytosis and hyponatremia on his lab work. The exact cause of his leukocytosis is not clear. Patient has a chronic thrombocytopenia as well. In addition patient does have an elevation of his creatinine. This is concerning for possible early hepatorenal syndrome. His bilirubin is elevated 2.9. CT of the chest shows multiple small lymph nodes within the mediastinum consistent with reactive lymph hyperplasia. Soft tissue density is seen in the upper abdominal images concerning for possible peritoneal metastasis. Cytology is ordered for his paracentesis for further evaluation of this. Patient not have a known cancer. Patient is admitted to medicine service for further evaluation and treatment of these findings. He is agreeable with this plan. He is hemodynamically stable in the emergency room. <Charline Austin - Last Filed: 08/06/19 00:13> ED Disposition <Todd Moore - Last Filed: 07/25/19 16:41> <Charline Austin - Last Filed: 08/06/19 00:13> - Plan for ED Patient: Disposition: Acute Care Hospital [facility] Diagnosis: Hyponatremia, Leukocytosis, Alcoholic cirrhosis, Ascites, Anasarca, HTN (hypertension), PETER (acute kidney injury)
[2019-07-25 11:04] LABS: Absolute Lymphocyte Count 1.07 X10^3/uL (0.83-4.51); Absolute Neutrophil Count 27.6 X10^3/uL (2.0-7.7); Basophil# 0.11 X10^3/uL; Basophil% 0.3 % (0-1); Eosinophil# 0.28 X10^3/uL; Eosinophils% 0.9 % (0-5); Lymphocyte # 1.07 X10^3/ul (4.0); Lymphocyte % 3.3 % (19-41); Mean Corpuscular Hgb 33.8 pg (27.0-32.0); Mean Platelet Vol. 9.7 fl (6.2-12.0); Monocyte# 2.48 X10^3/uL; Monocyte% 7.6 % (0-10); NRBC Flagged by Analyzer 0 % (0-5); Neutrophil # 27.64 X10^3/uL (2.7-7.7); Neutrophil % 84.1 % (47-70); POSITIVE COUNT YES; POSITIVE DIFFERENTIAL YES; Platelet Count 159 K/mm3 (150-450); RBC Distribution Width SD 44.4 fl (35.1-43.9); Red Blood Count 2.66 M/mm3 (4.6-6.2)
[2019-07-25 11:27] LABS: Differential Indicated SCAN CRITERIA MET; White Blood Count 32.8 K/mm3 (4.4-11.0)
[2019-07-25 11:28] LABS: AST(SGOT) 55 U/L (15-37); Alanine Aminotransfer ALT/SGPT 41 U/L (16-61); Albumin, Serum 1.6 g/dL (3.2-5.0); Alkaline Phosphatase 284 U/L (45-117); Anion Gap 8 (5-15); BUN 49 mg/dL (7-18); BUN/Creat Ratio 25.1 RATIO (10-20); Bilirubin, Direct 3.08 mg/dL (0.00-0.30); Calcium,Total 7.3 mg/dL (8.5-10.1); Chloride 93 mmol/L (98-107); Creatinine, Serum 1.95 mg/dL (0.70-1.30); EST Glomerular Filtration Rate 38 mL/min (>60); Est Glom Filt Rate - Afr Amer 46 mL/min (>60); Estimated Creatinine Clearance 46.12 ml/min; Globulin 4.2 g/dL (2.2-4.2); Glucose 119 mg/dL (74-106); Lipase 208 U/L (73-393); Potassium 4.8 mmol/L (3.5-5.1); Protein, Total 5.8 g/dL (6.4-8.2); Sodium Level 119 mmol/L (136-145)
[2019-07-25 11:34] LABS: International Normalized Ratio 2.1; Prothrombin Time (Protime)PT. 22.7 SECONDS (11.7-14.9)
[2019-07-25 11:46] LABS: Lactic Acid 2.2 mmol/L (0.4-1.9)
--- NOTE | 2019-07-25 12:32 | CT_ITS ---
STUDY: CT CHEST WITHOUT CONTRAST REASON FOR EXAM: Male, 53 years old. SOB, COUGH RADIATION DOSAGE (If Supplied By Facility): CTDIvol = ( 14.90 ) mGy, DLP = ( 447.86 ) mGycm TECHNIQUE: Transaxial imaging was performed without the administration of intravenous contrast material. Multiplanar coronal and sagittal images were reformatted. Individualized dose optimization techniques were used for this CT. COMPARISON: None. FINDINGS: Small left pleural effusion with left basilar atelectasis. . There are calcifications of the coronary arteries. There are multiple small lymph nodes within the mediastinum, which are normal in size and morphology most compatible with reactive lymph hyperplasia. Normal hilar regions. Normal unenhanced pulmonary arteries. Normal aorta arch and descending thoracic aorta. There are degenerative changes of the thoracic spine. Ascites. Soft tissue density is seen within the peroneal fat as seen in the upper abdominal images. Peritoneal metastasis should be ruled out. CT/Chest without Contrast IMPRESSION: Small left pleural effusion with left basilar atelectasis. Ascites. Possible peritoneal metastasis. Electronically Signed: Demar Chamberlain, at 13:31 EDT , Service support ,
--- NOTE | 2019-07-25 12:45 | US_ITS ---
PROCEDURE: Ultrasound guided paracentesis. DATE OF EXAMINATION: July 25, 2019. INDICATION: Male, 53 years old. Ascites. PHYSICIAN: Demar Chamberlain M.D. TECHNIQUE: The risks, benefits, and alternatives to the procedure were explained to the patient. The specific risks of bleeding, infection, and damage to bowel were detailed and accepted. Witnessed informed consent was obtained. The abdomen was ultrasonographically surveyed. An appropriate pocket of fluid was identified at the right lower quadrant. The skin were cleaned and prepped in the usual sterile fashion. Using ultrasound guidance, the peritoneal cavity was accessed with a 5-[place] paracentesis needle/catheter system. The trocar was removed. A total of 9000 ml of russel-colored fluid were removed from the peritoneal cavity. A 120 mL sample of fluid was sent to the laboratory. The catheter was removed and a sterile dressing was applied. The procedure was well tolerated. US/Paracentesis with US IMPRESSION: Ultrasound guided paracentesis. Electronically Signed: Demar Chamberlain, at 14:49 EDT , Service support ,
--- NOTE | 2019-07-25 12:49 | HP.PCM_ITS ---
History of Present Illness Date of Admission: 07/25/19 Chief Complaint: low sodium level The patient is a 53 year old M with an extensive past medical history as outlined was admitted via the ED on 07/25/2019 due to abnormal labs done in the outpatient basis. Patient has a history of liver cirrhosis due to alcohol abuse with ascites and has been requiring twice weekly paracentesis. His last paracentesis was a few days ago and he is due to have paracentesis today. He states labs were done by his PCP on outpatient basis and he was told today that his sodium was very low so he should come into the ED. He complained of a cough which he said was productive but he did not know the color because he swallowed the expectorant. He denied any chest pain no fever, chills, nausea, vomiting or diarrhea. Review of symptoms otherwise negative. In the ED on admission, blood pressure was 96/51 with pulse rate of 104 and respiratory of 20. Labs showed sodium of 119 with creatinine of 1.95 and bicarb of 18. Lactic acid was 2.2 and total bilirubin was 3.9 with direct bilirubin of 3. AST was 55 and ALP was 284 with ALT of 41. ALT was 49 and WBC was 32.8 with hemoglobin of 9 and platelets of 159. Chest x-ray done showed no acute cardiopulmonary process and CT of the chest done showed a small left pleural effusion with left basal atelectasis and small multiple lymph nodes within the mediastinum which are normal in size and morphology and compatible with reactive lymph hyperplasia. There was also vis ible ascites and soft tissue density seen in the peritoneal fat in. Neurology, peritoneal metastasis should be ruled out. He has been admitted to be managed for severe sepsis of unclear etiology and acute on chronic hyponatremia. [] Past Medical History Past Medical History (Chronic Problems): Chronic Problems HTN (hypertension) (Chronic) Alcoholism (Chronic) Alcoholic cirrhosis (Chronic) Allergies lisinopril Allergy (Verified 07/25/19 10:56) PT UNSURE OF REACTION codeine Adverse Reaction (Verified 07/25/19 10:10) Nausea hydrocodone [From Vicodin] Adverse Reaction (Verified 07/25/19 10:10) Itching Home Medications: Ambulatory Orders Medication Instructions Recorded Folic Acid 1 mg PO DAILY@0800 #30 tab 07/04/19 Furosemide 40 mg PO BID #60 tab 07/04/19 Lactulose [Chronulac] 20 gm PO DAILY #1 bottle 07/04/19 Thiamine Hydrochloride [Vitamin B1] 100 mg PO DAILYCM #30 tab 07/04/19 Spironolactone [Aldactone] 75 mg PO DAILY 07/25/19 Surgical History: - - Inguinal and umbilical hernia repair, colonoscopy Lives: Spouse/ Significant Other Smoking Status: Current every day smoker Alcohol: None Drugs: None - *Family History Maternal History Items: - - This is Review of Systems Constitutional: Denies: Anorexia, Chills, Fever, Malaise, Weakness, Weight Change, Fatigue Eyes: Denies: Blurred vision HEENT: Denies: Head Aches, Sinus Congestion, Sinus Drainage Cardiovascular: Denies: Chest Pain, Palpitations Respiratory: Reports: Shortness of Breath, Sputum production. Denies: Shortness of breath at rest, Shortness of breath upon exertion Gastrointestinal: Denies: Abdominal Pain, Nausea, Vomiting Genitourinary: Denies: Dysuria Musculoskeletal: Denies: Joint Pain, Joint Tenderness Skin: Denies: Rash, Wounds Neurological: Denies: Numbness, Tingling, Focal weakness Psychiatric: Denies: Anxiety, Depression, Homicidal Ideations, Suicidal Ideations Hematologic/ Lymphatic: Denies: Easy Bruising, Easy Bleeding VTE Information - Inpt Only VTE Present on Admission: No VTE Pharm Prophylaxis ordered?: No Reason prophylaxis not ordered:: Medical Contraindication - liver disease Patient Problems: Active and Suspected Problems Anasarca (Acute) Ascites (Acute) Hyponatremia (Acute) PETER (acute kidney injury) (Acute) Leukocytosis (Acute) - Physical Exam Vitals/I&O's: Vital Signs Temp Pulse Resp BP Pulse Ox 98.1 F 104 H 20 H 96/51 L 97 07/25/19 11:35 07/25/19 11:35 07/25/19 11:35 07/25/19 11:35 07/25/19 11:35 Oxygen Delivery Method Room Air Weight: 237 lb Body Mass Index (BMI) 33.0 General: Alert, Oriented x3, Cooperative, No apparent distress HEENT: Atraumatic, PERRLA, EOMI, Normocephalic, - - jaundiced sclera Oral: Dry Mucosa Neck: Supple, No JVD, Negative Carotid Bruits Lungs: - - coarse crackles in all lung holt bilaterally, on 2L of oxygen by nasal canula Cardiovascular: Regular rate, Regular Rhythm, Normal S1, Normal S2, No murmurs Abdomen: Bowel Sounds Present, Soft, Non Tender, Non-Distended, - - massive ascites with positive fluid thrill Extremities: No clubbing, No cyanosis, - - bilateral LE pitting pedal edema 2+ Skin: No rashes, No breakdown Musculoskeletal: No Tenderness to Palpation of Joints or Extremities Lymphatic: No Cervical, Supraclavicular, or Inguinal Adenopathy Neurological: Cranial nerves II-XII grossly intact, Neuro grossly intact, Motor Exam 5/5 strength throughout, - - minimal asterixis Psych/Mental Status: Normal Affect, Appropriate, Alert and oriented to time, place, person, mood and affect Laboratory Results 07/25/19 10:40: COVID-19 (JOAN) Pending 07/25/19 10:47: WBC 32.8 H*, RBC 2.66 L, Hgb 9.0 L, Hct 25.0 L, MCV 94.0, MCH 33.8 H, MCHC 36.0, RDW Std Deviation 44.4 H, RDW Coeff of Pravin 13.0, Plt Count 159, MPV 9.7, Immature Gran % (Auto) 3.800 H, Neut % (Auto) 84.1 H, Lymph % (Auto) 3.3 L, [place] % (Auto) 7.6, Eos % (Auto) 0.9, Baso % (Auto) 0.3, Absolute Neuts (auto) 27.6 H, Absolute Lymphs (auto) 1.07, Nucleated RBC % 0, Differential Comment SEVERAL BANDS NOTED, Diff Path Review June07/25/19 10:47: PT 22.7 H, INR 2.1 07/25/19 10:47: Sodium 119 L*, Potassium 4.8, Chloride 93 L, Carbon Dioxide 18.0 L, Anion Gap 8, BUN 49 H, Creatinine 1.95 H, Estim Creat Clear Calc 46.12, Est GFR (MDRD) Af Amer 46 L, Est GFR (MDRD) Non-Af 38 L, BUN/Creatinine Ratio 25.1 H , Glucose 119 H, Calcium 7.3 L, Total Bilirubin 3.90 H, Direct Bilirubin 3.08 H, AST 55 H, ALT 41, Alkaline Phosphatase 284 H, Troponin I < 0.015, Total Protein 5.8 L, Albumin 1.6 L, Globulin 4.2, Lipase 208 07/25/19 10:47: Lactic Acid 2.2 H* 07/25/19 10:47: Ammonia 49.0 H Diagnostic Data Chest X-Ray 07/25/19 10:23 IMPRESSION: Normal x-ray examination of the chest. Electronically Signed: Demar Chamberlain, at 11:14 EDT , Service support , Chest CT 07/25/19 12:32 IMPRESSION: Small left pleural effusion with left basilar atelectasis. Ascites. Possible peritoneal metastasis. Electronically Signed: Demar Chamberlain, at 13:31 EDT , Service support , ADDENDUM: 07/25/19 1339 Paracentesis Ultrasound 07/25/19 12:45 IMPRESSION: Ultrasound guided paracentesis. Electronically Signed: Demar Chamberlain, at 14:49 EDT , Service support , Assessment/Plan All Active Problems Anasarca (Acute) Ascites (Acute) Hyponatremia (Acute) PETER (acute kidney injury) (Acute) Leukocytosis (Acute) 53 y./o admitted o/a of abnormal labs 1. Acute on chronic hyponatremia * Sodium is 119. Baseline sodium is usually in the high 120s and 130s though he has been as low as 108 before. * Hydrate with IV fluids normal saline at 125 cc/h. Check sodium every 8 with target rise in sodium of 6 to 8 mmol/L over the next 24 hours. * Check urine osmolarity and serum osmolarity as well as urine sodium. * Hold Lasix. * Consult nephrology. * 2. Sepsis, possibly due to SBP * SIRS criteria is 3/4 with patient being tachycardic and tachypneic with white cell count of 32.8. * Patient had paracentesis done today before admission. Fluid sent for analysis. * Patient started on IV vancomycin and Zosyn * Blood cultures and urine cultures ordered. Will await ascitic fluid white cell count to check if he may have SBP. * lactic acid was 2.2. Will trend per sepsis protocol. * COVID screen was negative * 3. Ascites due to alcoholic liver cirrhosis * Had paracentesis today with removal of 9 L of fluid. * Will give IV albumin 25 g x 1. * Liver enzymes show total bilirubin of 3.9 with direct bilirubin of 3.08 and AST of 55 as well as ALP of 24 and ALT of 41. INR is pending. * 4. Alcoholic liver cirrhosis: We will hold spironolactone and torsemide on account of hypotension and acute on chronic hyponatremia. 5. PETER: Creatinine is 1.95 with a baseline of 1.06. Should improve with hydration. If he does not improve, will consider urine electrolytes and renal ultrasound. DVT prophylaxis: SCDs CODE STATUS: Full code * Patient counseled extensively about different types of CODE STATUS including full code, DNR CCA and DNR CCA. Patient elects to be full code. * Total [id number] time 16 minutes. Total critical care time spent on patien: 45 mins Inpatient E&M: 54338 Init Hosp L3 Procedures: 39995 Critial Care 1st Hr
--- NOTE | 2019-07-25 12:51 | NURSING ---
ICU [facility] SE[facility]ERE SEPSIS
[2019-07-25 13:04] LABS: Probe Check PASS; Specimen Processing Control PASS
[2019-07-25 13:57] LABS: Cytology, Body Fluid / CSF SEE PATHOLOGY REPORT
[2019-07-25 14:55] LABS: Reflex Lactate? Y
[2019-07-25 14:58] LABS: Body Fluid Mononuclear WBC # 1.121 10^3/uL; Body Fluid Mononuclear WBC % 11.6 %; Body Fluid Polynuclear WBC # 8.529 10^3/uL; Body Fluid Polynuclear WBC % 88.4 %; Body Fluid Total Cells Counted 9.768 10^3/ul
[2019-07-25] MEDS: 0.9% Normal Saline 1,000 ML 125 ML IV (15:17)
[2019-07-25 15:31] LABS: Auto B Fluid Analyzer BKGD Ct COUNTS W/IN LIMITS (W/IN LIMITS)
[2019-07-25 15:33] LABS: Appearance/Body Fluid CLOUDY; Color/Body Fluid LT YEL; Lymphocytes 1 %
[2019-07-25 15:34] LABS: Mesothelial Cells 2 %; Monocytes 8 %; Neutrophil (Segs) 89 %
[2019-07-25 15:55] LABS: Lactic Acid 2.1 mmol/L (0.4-1.9)
[2019-07-25 16:15] LABS: Glucose, Body Fluid 116 mg/dL (40-70); LDH,Body Fluid 50 Units/l (Not Establ.); Protein, Body Fluid 0.4 g/dL (Not Establ.)
[2019-07-25 16:23] LABS: Red Cell Count/Body Fluid 365 /mm3
--- NOTE | 2019-07-25 16:28 | PCM.CONS.R ---
Problem List (1) Hyponatremia Status: Acute (2) PETER (acute kidney injury) Status: Acute Consultation - Renal 07/25/19 PCP/ Referring MD: Requesting physician: [] Primary care physician: Dr. Jayesh Jeffers MD Reason for Consultation:: PETER Hyponatremia - History of Present Illness History of Present Illness: The patient is a 53 year old M who is admitted to the hospital with complaints of acute renal failure, hyponatremia. Renal consulted for same reason. He has known history of alcohol-related cirrhosis. Patient states he has been sober since May 03. Getting paracentesis 8 to 10 L twice a week or so. Was taking diuretics but states urine output was not that great. Has significant edema which apparently has been present for a while. No other urinary complaints. - Allergies Allergies: Allergies lisinopril Allergy (Verified 07/25/19 10:56) PT UNSURE OF REACTION codeine Adverse Reaction (Verified 07/25/19 10:10) Nausea hydrocodone [From Vicodin] Adverse Reaction (Verified 07/25/19 10:10) Itching - Current Medications Current Medications: Current Medications Dextrose (D50w Syringe) 0 gm IV X1 PRN; Protocol PRN Reason: Hypoglycemia Folic Acid (Folic Acid) 1 mg PO DAILY@0800 BELLA Glucagon () 1 mg IM .X1 PRN PRN Reason: Hypoglycemia Sodium Chloride () 1,000 mls @ 125 mls/hr IV .Q8H BELLA Stop: 07/26/19 06:37 Last Admin: 07/25/19 15:17 Dose: 125 mls/hr Documented by: Cefepime HCl 2 gm/ Sodium (Chloride) 100 mls @ 200 mls/hr IV Q8 BELLA Vancomycin IV Pharmacy to Dose (1 ea/ Sodium Chloride) 500 mls @ 250 mls/hr IV X1 PRN; Protocol PRN Reason: Rx to Dose Sodium Chloride () 250 mls @ 15 mls/hr IV .[id number] PRN PRN Reason: Saline Flush Sodium Chloride () 250 mls @ 15 mls/hr IV .[id number] PRN PRN Reason: Additional IVPB Infusion Vancomycin HCl 2,000 mg/ (Sodium Chloride) 540 mls @ 250 mls/hr IV X1 ONE Stop: 07/25/19 18:09 Last Admin: 07/25/19 15:35 Dose: 250 mls/hr Documented by: Albumin Human () 25 gm in 100 mls @ 60 mls/hr IV X1 ONE Stop: 07/25/19 17:41 Lactulose (Chronulac, Cephulac) 20 gm PO DAILY BELLA Ondansetron HCl (Zofran) 4 mg IV Q8H PRN PRN PRN Reason: NAUSEA/VOMITING Sodium Chloride () 10 - 40 ml IV UD PRN PRN Reason: SALINE FLUSH Thiamine HCl (Vitamin B1) 100 mg PO DAILYCM BELLA - Past Medical History Past Medical History (Chronic Problems): Chronic Problems HTN (hypertension) (Chronic) Alcoholism (Chronic) Alcoholic cirrhosis (Chronic) - Past Surgical History Surgical History: - - Inguinal and umbilical hernia repair, colonoscopy - Social History Smoking Status: Current every day smoker Alcohol: None Drugs: None - Family History Maternal History Items: - - This is Review of Systems Constitutional: Reports: Anorexia, Fatigue Cardiovascular: Reports: Edema Respiratory: Reports: Shortness of Breath Patient Problems: Active and Suspected Problems Hyponatremia (Acute) PETER (acute kidney injury) (Acute) - Physical Exam Vitals/I&O's: Vital Signs Temp Pulse Resp BP Pulse Ox 97.1 F L 95 18 99/40 L 100 07/25/19 14:45 07/25/19 16:00 07/25/19 16:00 07/25/19 16:00 07/25/19 16:00 Oxygen Flow Rate (L/min) [7] 6 Oxygen Flow Rate (L/min) [6] 4 Oxygen Flow Rate (L/min) 2 Oxygen Delivery Method [7] Nasal Cannula Oxygen Delivery Method [6] Nasal Cannula Oxygen Delivery Method [5] Nasal Cannula Oxygen Delivery Method [4] Room Air Oxygen Delivery Method [3] Room Air Oxygen Delivery Method [2] Room Air Oxygen Delivery Method [1 ( Room Air Initial Baseline)] Oxygen Delivery Method Nasal Cannula Weight: 118.5 kg Body Mass Index (BMI) 36.4 Intake and Output for Last 24 Hours 07/23/19 07/24/19 07/25/19 23:59 23:59 23:59 Output Total 9000 / 9000 Balance -9000 / -9000 General: Alert, Oriented x3 HEENT: Atraumatic Neck: Supple Lungs: Normal air movement Cardiovascular: Normal S1, Normal S2 Abdomen: Distended Extremities: Edema Skin: No rashes Musculoskeletal: Muscle Wasting Lymphatic: No Cervical, Supraclavicular, or Inguinal Adenopathy Neurological: Cranial nerves II-XII grossly intact Microbiology Past 72 Hours 07/25/19 13:40 Fluid - Ascites Gram Stain - Final Laboratory Results 07/25/19 10:40: COVID-19 (JOAN) Negative 07/25/19 10:47: WBC 32.8 H*, RBC 2.66 L, Hgb 9.0 L, Hct 25.0 L, MCV 94.0, MCH 33.8 H, MCHC 36.0, RDW Std Deviation 44.4 H, RDW Coeff of Pravin 13.0, Plt Count 159, MPV 9.7, Immature Gran % (Auto) 3.800 H, Neut % (Auto) 84.1 H, Lymph % (Auto) 3.3 L, [place] % (Auto) 7.6, Eos % (Auto) 0.9, Baso % (Auto) 0.3, Absolute Neuts (auto) 27.6 H, Absolute Lymphs (auto) 1.07, Nucleated RBC % 0, Differential Comment SEVERAL BANDS NOTED, Diff Path Review May foll 07/25/19 10:47: PT 22.7 H, INR 2.1 07/25/19 10:47: Sodium 119 L*, Potassium 4.8, Chloride 93 L, Carbon Dioxide 18.0 L, Anion Gap 8, BUN 49 H, Creatinine 1.95 H, Estim Creat Clear Calc 46.12, Est GFR (MDRD) Af Amer 46 L, Est GFR (MDRD) Non-Af 38 L, BUN/Creatinine Ratio 25.1 H, Glucose 119 H, Calcium 7.3 L, Total Bilirubin 3.90 H, Direct Bilirubin 3.08 H, AST 55 H, ALT 41, Alkaline Phosphatase 284 H, Troponin I < 0.015, Total Protein 5.8 L, Albumin 1.6 L, Globulin 4.2, Lipase 208 07/25/19 10:47: Lactic Acid 2.2 H* 07/25/19 10:47: Ammonia 49.0 H 07/25/19 13:40: Fluid Glucose 116 H, Fluid Total Protein 0.4, Fluid LDH 50 07/25/19 13:40: Fluid Amylase Pending 07/25/19 13:40: Fluid Source TNP, Fluid Color LT YEL, Fluid Appearance CLOUDY, Fluid WBC 9.650, Fluid RBC 365, Fluid Tot Cell Count 9.768, Fld Polynuclear WBCs # 8.529, Fld Polynuclear WBCs % 88.4, Fluid Mononuclear WBCs 1.121, Fld Mononuclear WBCs % 11.6, Fluid Neutrophils 89, Fluid Lymphocytes 1, Fluid Monocytes 8, Fld Mesothelial Cells 2, Fl Pathologist Comment May follow, Fluid Comment 2 Not Reportable 07/25/19 13:40: Miscellaneous Cytology Pending 07/25/19 15:20: Lactic Acid 2.1 H* Current Medications Dextrose (D50w Syringe) 0 gm IV X1 PRN; Protocol PRN Reason: Hypoglycemia Folic Acid (Folic Acid) 1 mg PO DAILY@0800 BELLA Glucagon () 1 mg IM .X1 PRN PRN Reason: Hypoglycemia Sodium Chloride () 1,000 mls @ 125 mls/hr IV .Q8H BELLA Stop: 07/26/19 06:37 Last Admin: 07/25/19 15:17 Dose: 125 mls/hr Documented by: Cefepime HCl 2 gm/ Sodium (Chloride) 100 mls @ 200 mls/hr IV Q8 BELLA Vancomycin IV Pharmacy to Dose (1 ea/ Sodium Chloride) 500 mls @ 250 mls/hr IV X1 PRN; Protocol PRN Reason: Rx to Dose Sodium Chloride () 250 mls @ 15 mls/hr IV .[id number] PRN PRN Reason: Saline Flush Sodium Chloride () 250 mls @ 15 mls/hr IV .[id number] PRN PRN Reason: Additional IVPB Infusion Vancomycin HCl 2,000 mg/ (Sodium Chloride) 540 mls @ 250 mls/hr IV X1 ONE Stop: 07/25/19 18:09 Last Admin: 07/25/19 15:35 Dose: 250 mls/hr Documented by: Albumin Human () 25 gm in 100 mls @ 60 mls/hr IV X1 ONE Stop: 07/25/19 17:41 Lactulose (Chronulac, Cephulac) 20 gm PO DAILY BELLA Ondansetron HCl (Zofran) 4 mg IV Q8H PRN PRN PRN Reason: NAUSEA/VOMITING Sodium Chloride () 10 - 40 ml IV UD PRN PRN Reason: SALINE FLUSH Thiamine HCl (Vitamin B1) 100 mg PO DAILYCM [facility] Assessment/Plan All Active Problems Anasarca (Acute) Ascites (Acute) Hyponatremia (Acute) PETER (acute kidney injury) (Acute) Hyponatremia. Hypervolemic clinically. Related to cirrhosis. There is also suspicion for spontaneous bacterial peritonitis in view of significant elevation of white count. Ordered albumin for today. Hold Lasix and Aldactone for now Acute renal failure. Baseline creatinine seems to be around 1.1 or so. Possible hepatorenal. Urine output is not that great. We will give fluids for today to see if he responds. If not we will start treatment for hepatorenal syndrome. Sepsis, possible spontaneous bacterial peritonitis. Discussed with hospitalist.
[2019-07-25] MEDS: Albumin Human 25% (100 mL) 25 GM/100 ML BAG IV (18:24)
[2019-07-25] MEDS: 0.9% Normal Saline 1,000 ML 999 ML IV (18:35)
[2019-07-25 18:52] LABS: Prothrombin Time (Protime)PT. 22.4 SECONDS (11.7-14.9)
--- NOTE | 2019-07-25 19:43 | PCM.RX.CS ---
Consult Pharmacy has been consulted to manage selected antiobiotic: Vancomycin Type of Consult: New start Suspected Infection: Sepsis Prior Doses of Antibiotics Received/Current Regimen: none Labs: Sodium 119 mmol/L (136-145) L* 07/25/19 10:47 Potassium 4.8 mmol/L (3.5-5.1) 07/25/19 10:47 Chloride 93 mmol/L (98-107) L 07/25/19 10:47 Carbon Dioxide 18.0 mmol/L (21.0-32.0) L 07/25/19 10:47 Anion Gap 8 (5-15) 07/25/19 10:47 BUN 49 mg/dL (7-18) H 07/25/19 10:47 Creatinine 1.95 mg/dL (0.70-1.30) H 07/25/19 10:47 Est GFR (MDRD) Af Amer 46 mL/min (>60) L 07/25/19 10:47 Est GFR (MDRD) Non-Af 38 mL/min (>60) L 07/25/19 10:47 BUN/Creatinine Ratio 25.1 RATIO (10-20) H 07/25/19 10:47 Glucose 119 mg/dL (74-106) H 07/25/19 10:47 Microbiology: Microbiology 07/25/19 13:40 Fluid - Ascites Gram Stain - Final Weight used for dosin.5 kg Estimated Creatinine Clearance: 57ml/min Goal Trough: 15-20 mcg/mL Pharmacy Plan for Drug Dosing: NEW START IV VANCOMYCIN Consulting Physician: Diallo Indication: Severe Sepsis Goal Trough: 15-20 SrCr: 1.95 CrCl: 57ml/min (using an adjusted bw of 92.4kg) Comments: Vancomcyin Dose: Loading dose of 2000mg IV x1 on 07/24 @ 1536, then 1250mg IV q12h starting 07/25 @ 0330 Pending Level: 07/26 @ 0300 Pharmacy Service will continue to monitor and adjust dosing as required. Follow-Up Labs: Trough Vancomycin - 07/26 @ 0300
[2019-07-25] MEDS: 0.9% Saline Lock 10 ML Syringe IV (19:56)
[2019-07-26] VITALS (28 sets, daily range): BP systolic 81–111; BP diastolic 27–72; PULSE 77–99; RESP 15–21; TEMP 36.2–36.6; O2SAT 91–99
[2019-07-26 01:38] LABS: Bacteria 0 SEEN /hpf (None Seen); Mucous, Urine 0 SEEN /hpf (<or=2+); Red Blood Cells-Urine 0 SEEN /hpf (0-5); White Blood Cells 0 SEEN /hpf (0-5)
[2019-07-26 01:40] LABS: Color, Urine Yellow (Yellow); Glucose, Dipstick Normal (Normal); Ketone-Dipstick Negative (Negative); Leukocyte Esterase-Dipstick Negative /ul (Negative); Nitrite-Dipstick Negative (Negative); Occult Blood-Urine Negative /ul (Negative); Protein-Dipstick Negative (Negative); Specific Gravity, Urine 1.015 (1.002-1.030); Urine Bilirubin Dipstick Negative (Negative); Urine Clarity Clear (Clear); Urine Urobilinogen Normal (Normal)
[2019-07-26] MEDS: 0.9% Normal Saline 1,000 ML 125 ML IV (01:43)
[2019-07-26 01:49] LABS: Squamous Epithelial Cells - UA 0-5 SEEN /hpf (0-5)
[2019-07-26 04:21] LABS: Absolute Lymphocyte Count 1.11 X10^3/uL (0.83-4.51); Absolute Neutrophil Count 17.2 X10^3/uL (2.0-7.7); Basophil# 0.05 X10^3/uL; Basophil% 0.2 % (0-1); Eosinophil# 0.28 X10^3/uL; Eosinophils% 1.3 % (0-5); Hematocrit 21.4 % (40-54); Hemoglobin 7.7 g/dL (13.0-16.5); Lymphocyte # 1.11 X10^3/ul (4.0); Lymphocyte % 5.3 % (19-41); Mean Corpuscular Hgb 33.8 pg (27.0-32.0); Mean Corpuscular Volume 93.9 fL (80-94); Mean Platelet Vol. 9.8 fl (6.2-12.0); Monocyte# 1.79 X10^3/uL; Monocyte% 8.5 % (0-10); NRBC Flagged by Analyzer 0 % (0-5); Neutrophil # 17.15 X10^3/uL (2.7-7.7); Neutrophil % 81.2 % (47-70); POSITIVE DIFFERENTIAL YES; Platelet Count 103 K/mm3 (150-450); RBC Distribution Width CV 12.9 % (11.6-14.6); RBC Distribution Width SD 43.8 fl (35.1-43.9); Red Blood Count 2.28 M/mm3 (4.6-6.2); White Blood Count 21.1 K/mm3 (4.4-11.0)
[2019-07-26 04:42] LABS: International Normalized Ratio 2.3; Prothrombin Time (Protime)PT. 25.1 SECONDS (11.7-14.9)
[2019-07-26 04:44] LABS: Differential Indicated SCAN CRITERIA MET
[2019-07-26 04:50] LABS: ALB/GLOB Ratio 0.5 RATIO (0.9-2.4); AST(SGOT) 44 U/L (15-37); Alanine Aminotransfer ALT/SGPT 33 U/L (16-61); Albumin, Serum 1.5 g/dL (3.2-5.0); Alkaline Phosphatase 208 U/L (45-117); Anion Gap 9 (5-15); BUN 52 mg/dL (7-18); BUN/Creat Ratio 30.1 RATIO (10-20); Calcium,Total 7.2 mg/dL (8.5-10.1); Chloride 96 mmol/L (98-107); Creatinine, Serum 1.73 mg/dL (0.70-1.30); EST Glomerular Filtration Rate 44 mL/min (>60); Est Glom Filt Rate - Afr Amer 53 mL/min (>60); Estimated Creatinine Clearance 51.99 ml/min; Globulin 3.3 g/dL (2.2-4.2); Glucose 117 mg/dL (74-106); Potassium 4.5 mmol/L (3.5-5.1); Protein, Total 4.8 g/dL (6.4-8.2); Sodium Level 124 mmol/L (136-145)
[2019-07-26 05:09] LABS: Osmolality, Serum 263 mOsm/KG (275-295)
--- NOTE | 2019-07-26 06:05 | PCM.CON.CC ---
Reason for Consult Date of Consultation: 07/26/19 Reason for Consultation: Severe sepsis History of Present Illness: The patient is a 53-year-old male, with a history as outlined below, who presented to the emergency department on July 24 with abnormal outpatient laboratory work-up and shortness of breath. The patient reported that he was contacted by his primary care provider and was told that his potassium was elevated and his white blood cell count was increased. He was advised to present to the hospital for evaluation. The patient does have underlying alcoholic cirrhosis and requires frequent paracenteses. He stated that he also had a dry nonproductive cough prior to presentation to the hospital. The patient is an active smoker of 1 pack of cigarettes per day. He denied the presence of abdominal pain. He does report that he has been evaluated by Dr. Pineda at (gastroenterology). He was apparently being considered for transplantation, but has yet to be abstinent from alcohol for at least 6 months. On presentation to the emergency department, the patient was noted to be afebrile and hemodynamically stable. He was, nevertheless tachycardic and tachypneic. Laboratory evaluation revealed an elevated white blood cell count to 32,000. Coagulation profile revealed an INR of 2.1. Chemistry profile was notable for a sodium of 119, chloride of 93, bicarbonate of 18 and creatinine of 1.95. COVID testing was negative. CT chest revealed evidence of a cirrhotic liver along with a small left pleural effusion and left basilar atelectasis. Ultrasound-guided paracentesis was completed with 9 L of fluid removed. The patient was placed on antimicrobials, lactulose and supplemental fluids. He was subsequently admitted to the medical intensive care unit for further management. Past Medical History Past Medical History (Chronic Problems): Chronic Problems HTN (hypertension) (Chronic) Alcoholism (Chronic) Alcoholic cirrhosis (Chronic) Allergies lisinopril Allergy (Verified 07/25/19 10:56) PT UNSURE OF REACTION codeine Adverse Reaction (Verified 07/25/19 10:10) Nausea hydrocodone [From Vicodin] Adverse Reaction (Verified 07/25/19 10:10) Itching Home Medications: Ambulatory Orders Medication Instructions Recorded Folic Acid 1 mg PO DAILY@0800 #30 tab 07/04/19 Furosemide 40 mg PO BID #60 tab 07/04/19 Lactulose [Chronulac] 20 gm PO DAILY #1 bottle 07/04/19 Thiamine Hydrochloride [Vitamin B1] 100 mg PO DAILYCM #30 tab 07/04/19 Spironolactone [Aldactone] 75 mg PO DAILY 07/25/19 Surgical History: - - Inguinal and umbilical hernia repair, colonoscopy Lives: Spouse/ Significant Other Smoking Status: Current every day smoker Alcohol: None Drugs: None - *Family History Maternal History Items: - - This is Review of Systems Constitutional: Reports: Weight Change. Denies: Chills, Fever Eyes: Denies: Blurred vision, Double vision HEENT: Denies: Head Aches, Sinus Congestion, Sinus Drainage Cardiovascular: Reports: Edema. Denies: Chest Pain, Chest Tightness Respiratory: Reports: Cough, Shortness of Breath. Denies: Sputum production Gastrointestinal: Denies: Abdominal Pain, Nausea, Vomiting Genitourinary: Denies: Dysuria Musculoskeletal: Denies: Joint Pain, Joint Tenderness Skin: Denies: Rash, Wounds Neurological: Denies: Numbness, Tingling, Focal weakness Psychiatric: Denies: Anxiety, Depression, Homicidal Ideations, Suicidal Ideations Hematologic/ Lymphatic: Reports: Anemia Patient Problems: Active and Suspected Problems Anasarca (Acute) Ascites (Acute) Hyponatremia (Acute) PETER (acute kidney injury) (Acute) Leukocytosis (Acute) Objective: The patient's most recent lab work, culture data and imaging studies have all been personally reviewed. Preliminary blood culture revealed gram-positive cocci in clusters. Ascites fluid Gram stain showed no organisms. - Physical Exam Vitals/I&O's: Vital Signs Temp Pulse Resp BP Pulse Ox 97.8 F 89 16 99/41 L 98 07/26/19 04:00 07/26/19 05:00 07/26/19 05:00 07/26/19 05:00 07/26/19 05:00 Oxygen Flow Rate (L/min) [7] 6 Oxygen Flow Rate (L/min) [6] 4 Oxygen Flow Rate (L/min) 2 Oxygen Delivery Method [7] Nasal Cannula Oxygen Delivery Method [6] Nasal Cannula Oxygen Delivery Method [5] Nasal Cannula Oxygen Delivery Method [4] Room Air Oxygen Delivery Method [3] Room Air Oxygen Delivery Method [2] Room Air Oxygen Delivery Method [1 ( Room Air Initial Baseline)] Oxygen Delivery Method Room Air Weight: 261 lb 3.964 oz Body Mass Index (BMI) 36.4 Intake and Output for Last 24 Hours 07/24/19 07/25/19 07/26/19 23:59 23:59 23:59 Intake Total 2673.00 / 2793.00 1330.83 / 1330.83 Output Total 9000 / 9000 400 / 400 Balance -6327.00 / -6207.00 930.83 / 930.83 General: Alert, Oriented x3, Cooperative, No apparent distress, - - + Jaundiced appearing HEENT: Atraumatic, PERRLA, Normocephalic Oral: No Gingival or Mucosal Lesions/ Ulcerations Neck: Supple, No Nodes, Trachea Midline Lungs: No rhonchi, No wheeze, Diminished, Rales, - - No conversational dyspnea Cardiovascular: Regular rate, Regular Rhythm, Normal S1, Normal S2 Abdomen: Bowel Sounds Present, Soft, Distended Extremities: No clubbing, No cyanosis, Edema Skin: No breakdown Musculoskeletal: No Muscle Wasting Lymphatic: No Cervical, Supraclavicular, or Inguinal Adenopathy Neurological: Cranial nerves II-XII grossly intact, Neuro grossly intact Psych/Mental Status: Normal Affect, Appropriate Labs (Last 48 Hours) 07/25/19 07/25/19 07/25/19 10:40 10:47 10:47 WBC 32.8 H* RBC 2.66 L Hgb 9.0 L Hct 25.0 L MCV 94.0 MCH 33.8 H MCHC 36.0 RDW Std Deviation 44.4 H RDW Coeff of Pravin 13.0 Plt Count 159 MPV 9.7 Immature Gran % (Auto) 3.800 H Neut % (Auto) 84.1 H Lymph % (Auto) 3.3 L [place] % (Auto) 7.6 Eos % (Auto) 0.9 Baso % (Auto) 0.3 Absolute Neuts (auto) 27.6 H Absolute Lymphs (auto) 1.07 Nucleated RBC % 0 Differential Comment SEVERAL BANDS NOTED Diff Path Review May foll Platelet Estimate Crenated Cell PT 22.7 H INR 2.1 Sodium Potassium Chloride Carbon Dioxide Anion Gap BUN Creatinine Estim Creat Clear Calc Est GFR (MDRD) Af Amer Est GFR (MDRD) Non-Af BUN/Creatinine Ratio Glucose Serum Osmolality Lactic Acid Calcium Total Bilirubin Direct Bilirubin AST ALT Alkaline Phosphatase Ammonia Troponin I Total Protein Albumin Globulin Albumin/Globulin Ratio Lipase Urine Color Urine Clarity Urine pH Ur Specific [place] Urine Protein Urine Glucose (UA) Urine Ketones Urine Occult Blood Urine Nitrite Urine Bilirubin Urine Urobilinogen Ur Leukocyte Esterase Urine RBC Urine WBC Ur Squamous Epith Cells Urine Bacteria Urine Mucus Fluid Source Fluid Color Fluid Appearance Fluid WBC Fluid RBC Fluid Tot Cell Count Fld Polynuclear WBCs # Fld Polynuclear WBCs % Fluid Mononuclear WBCs Fld Mononuclear WBCs % Fluid Neutrophils Fluid Lymphocytes Fluid Monocytes Fld Mesothelial Cells Fl Pathologist Comment Fluid Glucose Fluid Total Protein Fluid LDH Fluid Amylase Fluid Comment 2 COVID-19 (JOAN) Negative Miscellaneous Cytology 07/25/19 07/25/19 07/25/19 10:47 10:47 10:47 WBC RBC Hgb Hct MCV MCH MCHC RDW Std Deviation RDW Coeff of Pravin Plt Count MPV Immature Gran % (Auto) Neut % (Auto) Lymph % (Auto) Johnston % (Auto) Eos % (Auto) Baso % (Auto) Absolute Neuts (auto) Absolute Lymphs (auto) Nucleated RBC % Differential Comment Diff Path Review Platelet Estimate Crenated Cell PT INR Sodium 119 L* Potassium 4.8 Chloride 93 L Carbon Dioxide 18.0 L Anion Gap 8 BUN 49 H Creatinine 1.95 H Estim Creat Clear Calc 46.12 Est GFR (MDRD) Af Amer 46 L Est GFR (MDRD) Non-Af 38 L BUN/Creatinine Ratio 25.1 H Glucose 119 H Serum Osmolality Lactic Acid 2.2 H* Calcium 7.3 L Total Bilirubin 3.90 H Direct Bilirubin 3.08 H AST 55 H ALT 41 Alkaline Phosphatase 284 H Ammonia 49.0 H Troponin I < 0.015 Total Protein 5.8 L Albumin 1.6 L Globulin 4.2 Albumin/Globulin Ratio Lipase 208 Urine Color Urine Clarity Urine pH Ur Specific [place] Urine Protein Urine Glucose (UA) Urine Ketones Urine Occult Blood Urine Nitrite Urine Bilirubin Urine Urobilinogen Ur Leukocyte Esterase Urine RBC Urine WBC Ur Squamous Epith Cells Urine Bacteria Urine Mucus Fluid Source Fluid Color Fluid Appearance Fluid WBC Fluid RBC Fluid Tot Cell Count Fld Polynuclear WBCs # Fld Polynuclear WBCs % Fluid Mononuclear WBCs Fld Mononuclear WBCs % Fluid Neutrophils Fluid Lymphocytes Fluid Monocytes Fld Mesothelial Cells Fl Pathologist Comment Fluid Glucose Fluid Total Protein Fluid LDH Fluid Amylase Fluid Comment 2 COVID-19 (JOAN) Miscellaneous Cytology 07/25/19 07/25/19 07/25/19 13:40 13:40 13:40 WBC RBC Hgb Hct MCV MCH MCHC RDW Std Deviation RDW Coeff of Pravin Plt Count MPV Immature Gran % (Auto) Neut % (Auto) Lymph % (Auto) Johnston % (Auto) Eos % (Auto) Baso % (Auto) Absolute Neuts (auto) Absolute Lymphs (auto) Nucleated RBC % Differential Comment Diff Path Review Platelet Estimate Crenated Cell PT INR Sodium Potassium Chloride Carbon Dioxide Anion Gap BUN Creatinine Estim Creat Clear Calc Est GFR (MDRD) Af Amer Est GFR (MDRD) Non-Af BUN/Creatinine Ratio Glucose Serum Osmolality Lactic Acid Calcium Total Bilirubin Direct Bilirubin AST ALT Alkaline Phosphatase Ammonia Troponin I Total Protein Albumin Globulin Albumin/Globulin Ratio Lipase Urine Color Urine Clarity Urine pH Ur Specific [place] Urine Protein Urine Glucose (UA) Urine Ketones Urine Occult Blood Urine Nitrite Urine Bilirubin Urine Urobilinogen Ur Leukocyte Esterase Urine RBC Urine WBC Ur Squamous Epith Cells Urine Bacteria Urine Mucus Fluid Source TNP Fluid Color LT YEL Fluid Appearance CLOUDY Fluid WBC 9.650 Fluid RBC 365 Fluid Tot Cell Count 9.768 Fld Polynuclear WBCs # 8.529 Fld Polynuclear WBCs % 88.4 Fluid Mononuclear WBCs 1.121 Fld Mononuclear WBCs % 11.6 Fluid Neutrophils 89 Fluid Lymphocytes 1 Fluid Monocytes 8 Fld Mesothelial Cells 2 Fl Pathologist Comment May follow Fluid Glucose 116 H Fluid Total Protein 0.4 Fluid LDH 50 Fluid Amylase Pending Fluid Comment 2 Not Reportable COVID-19 (JOAN) Miscellaneous Cytology 07/25/19 07/25/19 07/25/19 13:40 15:20 18:20 WBC RBC Hgb Hct MCV MCH MCHC RDW Std Deviation RDW Coeff of Pravin Plt Count MPV Immature Gran % (Auto) Neut % (Auto) Lymph % (Auto) [place] % (Auto) Eos % (Auto) Baso % (Auto) Absolute Neuts (auto) Absolute Lymphs (auto) Nucleated RBC % Differential Comment Diff Path Review Platelet Estimate Crenated Cell PT 22.4 H INR 2.0 Sodium Potassium Chloride Carbon Dioxide Anion Gap BUN Creatinine Estim Creat Clear Calc Est GFR (MDRD) Af Amer Est GFR (MDRD) Non-Af BUN/Creatinine Ratio Glucose Serum Osmolality Lactic Acid 2.1 H* Calcium Total Bilirubin Direct Bilirubin AST ALT Alkaline Phosphatase Ammonia Troponin I Total Protein Albumin Globulin Albumin/Globulin Ratio Lipase Urine Color Urine Clarity Urine pH Ur Specific [place] Urine Protein Urine Glucose (UA) Urine Ketones Urine Occult Blood Urine Nitrite Urine Bilirubin Urine Urobilinogen Ur Leukocyte Esterase Urine RBC Urine WBC Ur Squamous Epith Cells Urine Bacteria Urine Mucus Fluid Source Fluid Color Fluid Appearance Fluid WBC Fluid RBC Fluid Tot Cell Count Fld Polynuclear WBCs # Fld Polynuclear WBCs % Fluid Mononuclear WBCs Fld Mononuclear WBCs % Fluid Neutrophils Fluid Lymphocytes Fluid Monocytes Fld Mesothelial Cells Fl Pathologist Comment Fluid Glucose Fluid Total Protein Fluid LDH Fluid Amylase Fluid Comment 2 COVID-19 (JOAN) Miscellaneous Cytology Pending 07/26/19 07/26/19 07/26/19 01:25 04:15 04:15 WBC 21.1 H RBC 2.28 L Hgb 7.7 L Hct 21.4 L MCV 93.9 MCH 33.8 H MCHC 36.0 RDW Std Deviation 43.8 RDW Coeff of Pravin 12.9 Plt Count 103 L MPV 9.8 Immature Gran % (Auto) 3.500 H Neut % (Auto) 81.2 H Lymph % (Auto) 5.3 L Johnston % (Auto) 8.5 Eos % (Auto) 1.3 Baso % (Auto) 0.2 Absolute Neuts (auto) 17.2 H Absolute Lymphs (auto) 1.11 Nucleated RBC % 0 Differential Comment COMMENT Diff Path Review May foll Platelet Estimate SLT DEC Crenated Cell RARE PT 25.1 H INR 2.3 Sodium Potassium Chloride Carbon Dioxide Anion Gap BUN Creatinine Estim Creat Clear Calc Est GFR (MDRD) Af Amer Est GFR (MDRD) Non-Af BUN/Creatinine Ratio Glucose Serum Osmolality Lactic Acid Calcium Total Bilirubin Direct Bilirubin AST ALT Alkaline Phosphatase Ammonia Troponin I Total Protein Albumin Globulin Albumin/Globulin Ratio Lipase Urine Color Yellow Urine Clarity Clear Urine pH 5.0 Ur Specific [place] 1.015 Urine Protein Negative Urine Glucose (UA) Normal Urine Ketones Negative Urine Occult Blood Negative Urine Nitrite Negative Urine Bilirubin Negative Urine Urobilinogen Normal Ur Leukocyte Esterase Negative Urine RBC 0 SEEN Urine WBC 0 SEEN Ur Squamous Epith Cells 0-5 SEEN Urine Bacteria 0 SEEN Urine Mucus 0 SEEN Fluid Source Fluid Color Fluid Appearance Fluid WBC Fluid RBC Fluid Tot Cell Count Fld Polynuclear WBCs # Fld Polynuclear WBCs % Fluid Mononuclear WBCs Fld Mononuclear WBCs % Fluid Neutrophils Fluid Lymphocytes Fluid Monocytes Fld Mesothelial Cells Fl Pathologist Comment Fluid Glucose Fluid Total Protein Fluid LDH Fluid Amylase Fluid Comment 2 COVID-19 (JOAN) Miscellaneous Cytology 07/26/19 07/26/19 04:15 04:15 WBC RBC Hgb Hct MCV MCH MCHC RDW Std Deviation RDW Coeff of Pravin Plt Count MPV Immature Gran % (Auto) Neut % (Auto) Lymph % (Auto) [place] % (Auto) Eos % (Auto) Baso % (Auto) Absolute Neuts (auto) Absolute Lymphs (auto) Nucleated RBC % Differential Comment Diff Path Review Platelet Estimate Crenated Cell PT INR Sodium 124 L Potassium 4.5 Chloride 96 L Carbon Dioxide 19.0 L Anion Gap 9 BUN 52 H Creatinine 1.73 H Estim Creat Clear Calc 51.99 Est GFR (MDRD) Af Amer 53 L Est GFR (MDRD) Non-Af 44 L BUN/Creatinine Ratio 30.1 H Glucose 117 H Serum Osmolality 263 L Lactic Acid Calcium 7.2 L Total Bilirubin 3.40 H Direct Bilirubin AST 44 H ALT 33 Alkaline Phosphatase 208 H Ammonia Troponin I Total Protein 4.8 L Albumin 1.5 L Globulin 3.3 Albumin/Globulin Ratio 0.5 L Lipase Urine Color Urine Clarity Urine pH Ur Specific [place] Urine Protein Urine Glucose (UA) Urine Ketones Urine Occult Blood Urine Nitrite Urine Bilirubin Urine Urobilinogen Ur Leukocyte Esterase Urine RBC Urine WBC Ur Squamous Epith Cells Urine Bacteria Urine Mucus Fluid Source Fluid Color Fluid Appearance Fluid WBC Fluid RBC Fluid Tot Cell Count Fld Polynuclear WBCs # Fld Polynuclear WBCs % Fluid Mononuclear WBCs Fld Mononuclear WBCs % Fluid Neutrophils Fluid Lymphocytes Fluid Monocytes Fld Mesothelial Cells Fl Pathologist Comment Fluid Glucose Fluid Total Protein Fluid LDH Fluid Amylase Fluid Comment 2 COVID-19 (JOAN) Miscellaneous Cytology Microbiology 07/25/19 11:33 Blood Culture (Wb) - Anticubital Right Blood Culture - Preliminary 07/25/19 10:47 Blood Culture (Wb) - Left Forearm Blood Culture - Preliminary 07/25/19 13:40 Fluid - Ascites Gram Stain - Final Clinical Impression(s) from Imaging Studies Chest X-Ray 07/25/19 10:23 IMPRESSION: Normal x-ray examination of the chest. Electronically Signed: Demar Chamberlain, at 11:14 EDT , Service support , Chest CT 07/25/19 12:32 IMPRESSION: Small left pleural effusion with left basilar atelectasis. Ascites. Possible peritoneal metastasis. Electronically Signed: Demar Cintia, at 13:31 EDT , Service support , ADDENDUM: 07/25/19 1339 Paracentesis Ultrasound 07/25/19 12:45 IMPRESSION: Ultrasound guided paracentesis. Electronically Signed: Demar Cintia, at 14:49 EDT , Service support , Current Medications Dextrose (D50w Syringe) 0 gm IV X1 PRN; Protocol PRN Reason: Hypoglycemia Folic Acid (Folic Acid) 1 mg PO DAILY@0800 BELLA Glucagon () 1 mg IM .X1 PRN PRN Reason: Hypoglycemia Sodium Chloride () 1,000 mls @ 125 mls/hr IV .Q8H [facility] Stop: 07/26/19 06:37 Last Infusion: 07/26/19 05:57 Dose: 0 mls/hr Documented by: Cefepime HCl 2 gm/ Sodium (Chloride) 100 mls @ 200 mls/hr IV Q8 BELLA Last Admin: 07/26/19 05:56 Dose: 200 mls/hr Documented by: Vancomycin IV Pharmacy to Dose (1 ea/ Sodium Chloride) 500 mls @ 250 mls/hr IV X1 PRN; Protocol PRN Reason: Rx to Dose Sodium Chloride () 250 mls @ 15 mls/hr IV .[id number] PRN PRN Reason: Saline Flush Sodium Chloride () 250 mls @ 15 mls/hr IV .[id number] PRN PRN Reason: Additional IVPB Infusion Vancomycin HCl 1,250 mg/ (Sodium Chloride) 275 mls @ 167 mls/hr IV Q12H [facility] Last Infusion: 07/26/19 05:49 Dose: Infused Documented by: Lactulose (Chronulac, Cephulac) 20 gm PO DAILY BELLA Ondansetron HCl (Zofran) 4 mg IV Q8H PRN PRN PRN Reason: NAUSEA/VOMITING Sodium Chloride () 10 - 40 ml IV UD PRN PRN Reason: SALINE FLUSH Last Admin: 07/25/19 19:56 Dose: 10 ml Documented by: Thiamine HCl (Vitamin B1) 100 mg PO DAILYCM [facility] Assessment/Plan Active and Suspected Problems Anasarca (Acute) Ascites (Acute) Hyponatremia (Acute) PETER (acute kidney injury) (Acute) Leukocytosis (Acute) RECOMMENDATIONS: 1. Give additional 25 g of albumin, given large volume paracentesis yesterday. 2. Start Midodrine 3 times daily. 3. Obtain repeat blood cultures. 4. Continue current antimicrobial therapy. 5. Send type and screen. 6. Stop continuous supplemental IV fluids. IMPRESSIONS: 1. Severe sepsis Although SBP was an initial consideration, the patient's blood cultures obtained on July 24 were subsequently found to be positive for gram-positive cocci in clusters. Although the patient's blood pressures are marginal, the patient is mentating appropriately. Given that he had a large volume paracentesis completed yesterday, will give an additional 25 g of albumin. Midodrine will also be started 3 times daily. Plan to continue empiric antimicrobials as ordered. Obtain repeat blood cultures today. Stop continuous supplemental IV fluids, over concerns for third spacing. 2. Normocytic anemia The patient has known, chronic anemia. His drop in hemoglobin from yesterday to today appears to be partially delusional in nature. Continue to monitor blood counts daily. Transfuse if hemoglobin drops below 7 g/dL. 3. Acute kidney injury Clinical concern for hepatorenal syndrome. Nephrology is currently following. Continue to monitor urine output accordingly. 4. Hyponatremia Likely secondary to underlying cirrhosis and volume status. 5. Alcoholic cirrhosis The patient has a known history of alcoholic cirrhosis. He requires frequent paracenteses. Patient reports that he has been followed by Dr. Pineda at [facility]. Transplantation has been discussed in the past. However, the patient has yet to be abstinent from alcohol for a period of 6 months. 6. Tobacco dependency Complicates care, management, recovery and prognosis. I personally spent 5 minutes discussing the deleterious effects of continued tobacco use with the patient, including modalities which could be utilized to achieve a smoke-free lifestyle. This note was generated with [employer] software. It may contain incorrect words, spelling, and punctuation that were not noted in checking the note before signing. Inpatient E&M: 56556 Init Hosp L3 - Behavior Interventions Behavior Intervention: 62760 Smoking Cessation 3-10 min
[2019-07-26 06:07] LABS: Crenated RBC RARE; Platelet Estimate SLT DEC (ADEQ)
[2019-07-26] MEDS: Albumin Human 25% (100 mL) 25 GM/100 ML BAG IV (08:33)
[2019-07-26] MEDS: Folic Acid 1 MG Tablet PO (08:34)
[2019-07-26] MEDS: Lactulose 20 GM/30 ML UDC PO (08:34)
[2019-07-26] MEDS: Thiamine Hydrochloride 100 MG Tablet PO (08:34)
--- NOTE | 2019-07-26 10:25 | PN_ITS ---
Patient Problems: Active and Suspected Problems Anasarca (Acute) Ascites (Acute) Hyponatremia (Acute) PETER (acute kidney injury) (Acute) Leukocytosis (Acute) Subjective: Patient seen and examined. He had no complaints this morning and felt well, he denied any fever, chills, nausea, vomiting or lightheadedness or dizziness. Review of systems is otherwise negative. His BP remained labile overnight. He had paracentesis with removal of 9L of fluid yesterday, and he received IV albumin 25gram once. He is receiving another dose of albumin this morning. Blood cultures growing gram positive cocci. Sodium is up to 124 today. WBC is also trended down to 21.1 but hemoglobin is dropped to 7.7. Vitals/I&O's: Vital Signs Temp Pulse Resp BP Pulse Ox 97.6 F L 90 16 95/54 L 97 07/26/19 08:00 07/26/19 10:00 07/26/19 10:00 07/26/19 10:00 07/26/19 10:00 Oxygen Flow Rate (L/min) [7] 6 Oxygen Flow Rate (L/min) [6] 4 Oxygen Flow Rate (L/min) 2 Oxygen Delivery Method [7] Nasal Cannula Oxygen Delivery Method [6] Nasal Cannula Oxygen Delivery Method [5] Nasal Cannula Oxygen Delivery Method [4] Room Air Oxygen Delivery Method [3] Room Air Oxygen Delivery Method [2] Room Air Oxygen Delivery Method [1 ( Room Air Initial Baseline)] Oxygen Delivery Method Room Air Weight: 261 lb 3.964 oz Body Mass Index (BMI) 36.4 Intake and Output for Last 24 Hours 07/24/19 07/25/19 07/26/19 23:59 23:59 23:59 Intake Total 2673.00 / 2793.00 2865.83 / 2865.83 Output Total 9000 / 9000 1000 / 1000 Balance -6327.00 / -6207.00 1865.83 / 1865.83 General: Alert, Oriented x3, Cooperative, No apparent distress HEENT: Atraumatic, PERRLA, EOMI, Normocephalic, - - jaundiced sclera Oral: Dry Mucosa Neck: Supple, No JVD, Negative Carotid Bruits Lungs: - - coarse crackles in all lung holt bilaterally, on room air Cardiovascular: Regular rate, Regular Rhythm, Normal S1, Normal S2, No murmurs Abdomen: Bowel Sounds Present, Soft, Non Tender, Non-Distended, - - massive ascites with positive fluid thrill Extremities: No clubbing, No cyanosis, - - bilateral LE pitting pedal edema 2+ Skin: No rashes, No breakdown Musculoskeletal: No Tenderness to Palpation of Joints or Extremities Lymphatic: No Cervical, Supraclavicular, or Inguinal Adenopathy Neurological: Cranial nerves II-XII grossly intact, Neuro grossly intact, Motor Exam 5/5 strength throughout, - - no asterixis Psych/Mental Status: Normal Affect, Appropriate, Alert and oriented to time, place, person, mood and affect Microbiology Past 72 Hours 07/25/19 11:33 Blood Culture (Wb) - Anticubital Right Blood Culture - Preliminary 07/25/19 10:47 Blood Culture (Wb) - Left Forearm Bacteria Detection (PCR) - Final Meth. resistant Staph. aureus 07/25/19 10:47 Blood Culture (Wb) - Left Forearm Blood Culture - Preliminary 07/25/19 13:40 Fluid - Ascites Gram Stain - Final Laboratory Results 07/25/19 10:40: COVID-19 (JOAN) Negative 07/25/19 10:47: WBC 32.8 H*, RBC 2.66 L, Hgb 9.0 L, Hct 25.0 L, MCV 94.0, MCH 33.8 H, MCHC 36.0, RDW Std Deviation 44.4 H, RDW Coeff of Pravin 13.0, Plt Count 159, MPV 9.7, Immature Gran % (Auto) 3.800 H, Neut % (Auto) 84.1 H, Lymph % (Auto) 3.3 L, [place] % (Auto) 7.6, Eos % (Auto) 0.9, Baso % (Auto) 0.3, Absolute Neuts (auto) 27.6 H, Absolute Lymphs (auto) 1.07, Nucleated RBC % 0, Differential Comment SEVERAL BANDS NOTED, Diff Path Review June07/25/19 10:47: PT 22.7 H, INR 2.1 07/25/19 10:47: Sodium 119 L*, Potassium 4.8, Chloride 93 L, Carbon Dioxide 18.0 L, Anion Gap 8, BUN 49 H, Creatinine 1.95 H, Estim Creat Clear Calc 46.12, Est GFR (MDRD) Af Amer 46 L, Est GFR (MDRD) Non-Af 38 L, BUN/Creatinine Ratio 25.1 H , Glucose 119 H, Calcium 7.3 L, Total Bilirubin 3.90 H, Direct Bilirubin 3.08 H, AST 55 H, ALT 41, Alkaline Phosphatase 284 H, Troponin I < 0.015, Total Protein 5.8 L, Albumin 1.6 L, Globulin 4.2, Lipase 208 07/25/19 10:47: Lactic Acid 2.2 H* 07/25/19 10:47: Ammonia 49.0 H 07/25/19 13:40: Fluid Glucose 116 H, Fluid Total Protein 0.4, Fluid LDH 50 07/25/19 13:40: Fluid Amylase Pending 07/25/19 13:40: Fluid Source TNP, Fluid Color LT YEL, Fluid Appearance CLOUDY, Fluid WBC 9.650, Fluid RBC 365, Fluid Tot Cell Count 9.768, Fld Polynuclear WBCs # 8.529, Fld Polynuclear WBCs % 88.4, Fluid Mononuclear WBCs 1.121, Fld Mononuclear WBCs % 11.6, Fluid Neutrophils 89, Fluid Lymphocytes 1, Fluid Monocytes 8, Fld Mesothelial Cells 2, Fl Pathologist Comment May follow, Fluid Comment 2 Not Reportable 07/25/19 13:40: Miscellaneous Cytology Pending 07/25/19 15:20: Lactic Acid 2.1 H* 07/25/19 18:20: PT 22.4 H, INR 2.0 07/26/19 01:25: Urine Color Yellow, Urine Clarity Clear, Urine pH 5.0, Ur Specific [place] 1.015, Urine Protein Negative, Urine Glucose (UA) Normal, Urine Ketones Negative, Urine Occult Blood Negative, Urine Nitrite Negative, Urine Bilirubin Negative, Urine Urobilinogen Normal, Ur Leukocyte Esterase Negative, Urine RBC 0 SEEN, Urine WBC 0 SEEN, Ur Squamous Epith Cells 0-5 SEEN, Urine Bacteria 0 SEEN, Urine Mucus 0 SEEN 07/26/19 04:15: WBC 21.1 H, RBC 2.28 L, Hgb 7.7 L, Hct 21.4 L, MCV 93.9, MCH 33.8 H, MCHC 36.0, RDW Std Deviation 43.8, RDW Coeff of Pravin 12.9, Plt Count 103 L, MPV 9.8, Immature Gran % (Auto) 3.500 H, Neut % (Auto) 81.2 H, Lymph % (Auto) 5.3 L, [place] % (Auto) 8.5, Eos % (Auto) 1.3, Baso % (Auto) 0.2, Absolute Neuts (auto) 17.2 H, Absolute Lymphs (auto) 1.11, Nucleated RBC % 0, Differential Comment COMMENT, Diff Path Review June foll, Platelet Estimate SLT DEC, Crenated Cell RARE 07/26/19 04:15: PT 25.1 H, INR 2.3 07/26/19 04:15: Sodium 124 L, Potassium 4.5, Chloride 96 L, Carbon Dioxide 19.0 L, Anion Gap 9, BUN 52 H, Creatinine 1.73 H, Estim Creat Clear Calc 51.99, Est GFR (MDRD) Af Amer 53 L, Est GFR (MDRD) Non-Af 44 L, BUN/Creatinine Ratio 30.1 H , Glucose 117 H, Calcium 7.2 L, Total Bilirubin 3.40 H, AST 44 H, ALT 33, Alkaline Phosphatase 208 H, Total Protein 4.8 L, Albumin 1.5 L, Globulin 3.3, Albumin/Globulin Ratio 0.5 L 07/26/19 04:15: Serum Osmolality 263 L 07/26/19 08:20: Blood Type O POSITIVE, Antibody Screen NEGATIVE Diagnostic Data Chest X-Ray 07/25/19 10:23 IMPRESSION: Normal x-ray examination of the chest. Electronically Signed: Demar Chamberlain at 11:14 EDT , Service support , Chest CT 07/25/19 12:32 IMPRESSION: Small left pleural effusion with left basilar atelectasis. Ascites. Possible peritoneal metastasis. Electronically Signed: Demar Chamberlain, at 13:31 EDT , Service support , ADDENDUM: 07/25/19 1339 Paracentesis Ultrasound 07/25/19 12:45 IMPRESSION: Ultrasound guided paracentesis. Electronically Signed: Demar Chamberlain, at 14:49 EDT , Service support , Current Medications Dextrose (D50w Syringe) 0 gm IV X1 PRN; Protocol PRN Reason: Hypoglycemia Folic Acid (Folic Acid) 1 mg PO DAILY@0800 [facility] Last Admin: 07/26/19 08:34 Dose: 1 mg Documented by: Glucagon () 1 mg IM .X1 PRN PRN Reason: Hypoglycemia Cefepime HCl 2 gm/ Sodium (Chloride) 100 mls @ 200 mls/hr IV Q8 [facility] Last Infusion: 07/26/19 06:26 Dose: Infused Documented by: Vancomycin IV Pharmacy to Dose (1 ea/ Sodium Chloride) 500 mls @ 250 mls/hr IV X1 PRN; Protocol PRN Reason: Rx to Dose Sodium Chloride () 250 mls @ 15 mls/hr IV .[id number] PRN PRN Reason: Saline Flush Sodium Chloride () 250 mls @ 15 mls/hr IV .[id number] PRN PRN Reason: Additional IVPB Infusion Vancomycin HCl 1,250 mg/ (Sodium Chloride) 275 mls @ 167 mls/hr IV Q12H [facility] Last Infusion: 07/26/19 05:49 Dose: Infused Documented by: Lactulose (Chronulac, Cephulac) 20 gm PO DAILY [facility] Last Admin: 07/26/19 08:34 Dose: 20 gm Documented by: Midodrine (Proamatine) 10 mg PO TID [facility] Ondansetron HCl (Zofran) 4 mg IV Q8H PRN PRN PRN Reason: NAUSEA/VOMITING Sodium Chloride () 10 - 40 ml IV UD PRN PRN Reason: SALINE FLUSH Last Admin: 07/25/19 19:56 Dose: 10 ml Documented by: Thiamine HCl (Vitamin B1) [facility] Last Admin: 07/26/19 08:34 Dose: 100 mg Documented by: STROKE Vital Signs/Narrative: Vital Signs Temp Pulse Resp BP Pulse Ox 07/26/19 10:00 90 16 95/54 L 97 07/26/19 09:00 90 15 90/39 L 95 07/26/19 08:00 97.6 F L 84 16 91/57 L 96 06/06/20 07:00 85 21 H 90/28 L 94 Medical Necessity - Tobacco Use Smoking Status: Current every day smoker Assessment/Plan All Active Problems Anasarca (Acute) Ascites (Acute) Hyponatremia (Acute) PETER (acute kidney injury) (Acute) Leukocytosis (Acute) 1. Acute on chronic hyponatremia * sodium is up to 124 today. Serum osmolality was 263. * lasix and spironolactone on hold * likely due to alcoholic liver cirrhosis * nephrology on board * patient received IVF * 2. Sepsis, possibly due to SBP * blood cultures growing MRSA; wbc is down to 21.1 * ascitic fluid was negative for SPB, * ascitic fluid culture pending * on IV vancomycin and zosun * urine cultures pending * COVID screen was negative * 2D echo ordered * 3. Ascites due to alcoholic liver cirrhosis * Had paracentesis today with removal of 9 L of fluid. * received IV albumin 25gram x 1. * give another dose of IV albumin today as BP has been labile * 4. Alcoholic liver cirrhosis: * furosemide and spironolactone still on hold o/a of hyopotension * BP has been labile. will monitor * 5. PETER: * there is concern for hepatorenal syndrome. * nephrology on board * Cr is down to 1.73, with baseline of 1.06 * 6. Chronic normocytic anemia * HemoGlobin today 7.7 and was 9 yesterday. However this does appear to be dilutional as all cell lines have dropped. * Baseline hemoglobin is around 7-8. Continue monitoring and transfuse if hemoglobin drops below 7. * 7. Thrombocytopenia: Platelets are down to 103 from 159 yesterday. Possibly dilutional in nature. Will monitor. DVT prophylaxis: SCDs CODE STATUS: Full code * Inpatient E&M: 49600 Subs Hosp L3
--- NOTE | 2019-07-26 11:54 | NURSING ---
engineering tech informed this RN that she could not rule out endocarditis with poor quality echo images. Tech informed Dr. Avelar.
[2019-07-26] MEDS: Midodrine HCl 5 MG Tablet 10 MG PO ×2 (12:44→21:06)
[2019-07-26 15:56] LABS: Urine Sodium 9 mmol/L (Not Establ.)
--- NOTE | 2019-07-26 17:14 | PCM.PN.REN ---
Patient Problems: Active and Suspected Problems Anasarca (Acute) Ascites (Acute) Hyponatremia (Acute) PETER (acute kidney injury) (Acute) Leukocytosis (Acute) Subjective: No nausea no vomiting No acute events - Physical Exam Vitals/I&O's: Vital Signs Temp Pulse Resp BP Pulse Ox 97.6 F L 83 16 111/48 L 98 07/26/19 12:00 07/26/19 15:00 07/26/19 15:00 07/26/19 15:00 07/26/19 15:00 Oxygen Flow Rate (L/min) [7] 6 Oxygen Flow Rate (L/min) [6] 4 Oxygen Flow Rate (L/min) 2 Oxygen Delivery Method [7] Nasal Cannula Oxygen Delivery Method [6] Nasal Cannula Oxygen Delivery Method [5] Nasal Cannula Oxygen Delivery Method [4] Room Air Oxygen Delivery Method [3] Room Air Oxygen Delivery Method [2] Room Air Oxygen Delivery Method [1 ( Room Air Initial Baseline)] Oxygen Delivery Method Room Air Weight: 122.5 kg Body Mass Index (BMI) 36.4 Intake and Output for Last 24 Hours 07/24/19 07/25/19 07/26/19 23:59 23:59 23:59 Intake Total 2673.00 / 2793.00 3405.83 / 3405.83 Output Total 9000 / 9000 1300 / 1300 Balance -6327.00 / -6207.00 2105.83 / 2105.83 General: Alert, Oriented x3 HEENT: Atraumatic Oral: Moist Mucosa Neck: Supple, No JVD Lungs: Clear to auscultation, Normal air movement, No rhonchi Cardiovascular: Regular rate, Regular Rhythm, Normal S1 Abdomen: Bowel Sounds Present, Soft, Distended Extremities: Edema - +3 edema Neurological: Cranial nerves II-XII grossly intact, Neuro grossly intact Psych/Mental Status: Appropriate Microbiology Past 72 Hours 07/25/19 10:47 Blood Culture (Wb) - Left Forearm Bacteria Detection (PCR) - Final Meth. resistant Staph. aureus 07/25/19 10:47 Blood Culture (Wb) - Left Forearm Blood Culture - Preliminary 07/25/19 13:40 Fluid - Ascites Gram Stain - Final 07/25/19 13:40 Fluid - Ascites Body Fluid Culture - Preliminary No growth-Final to follow 07/25/19 11:33 Blood Culture (Wb) - Anticubital Right Blood Culture - Preliminary Laboratory Results 07/25/19 18:20: PT 22.4 H, INR 2.0 07/26/19 01:25: Urine Color Yellow, Urine Clarity Clear, Urine pH 5.0, Ur Specific [place] 1.015, Urine Protein Negative, Urine Glucose (UA) Normal, Urine Ketones Negative, Urine Occult Blood Negative, Urine Nitrite Negative, Urine Bilirubin Negative, Urine Urobilinogen Normal, Ur Leukocyte Esterase Negative, Urine RBC 0 SEEN, Urine WBC 0 SEEN, Ur Squamous Epith Cells 0-5 SEEN, Urine Bacteria 0 SEEN, Urine Mucus 0 SEEN 07/26/19 04:15: WBC 21.1 H, RBC 2.28 L, Hgb 7.7 L, Hct 21.4 L, MCV 93.9, MCH 33.8 H, MCHC 36.0, RDW Std Deviation 43.8, RDW Coeff of Pravin 12.9, Plt Count 103 L, MPV 9.8, Immature Gran % (Auto) 3.500 H, Neut % (Auto) 81.2 H, Lymph % (Auto) 5.3 L, [place] % (Auto) 8.5, Eos % (Auto) 1.3, Baso % (Auto) 0.2, Absolute Neuts (auto) 17.2 H, Absolute Lymphs (auto) 1.11, Nucleated RBC % 0, Differential Comment COMMENT, Diff Path Review June vince, Platelet Estimate SLT DEC, Crenated Cell RARE 07/26/19 04:15: PT 25.1 H, INR 2.3 07/26/19 04:15: Sodium 124 L, Potassium 4.5, Chloride 96 L, Carbon Dioxide 19.0 L, Anion Gap 9, BUN 52 H, Creatinine 1.73 H, Estim Creat Clear Calc 51.99, Est GFR (MDRD) Af Amer 53 L, Est GFR (MDRD) Non-Af 44 L, BUN/Creatinine Ratio 30.1 H, Glucose 117 H, Calcium 7.2 L, Total Bilirubin 3.40 H, AST 44 H, ALT 33, Alkaline Phosphatase 208 H, Total Protein 4.8 L, Albumin 1.5 L, Globulin 3.3, Albumin/Globulin Ratio 0.5 L 07/26/19 04:15: Serum Osmolality 263 L 07/26/19 08:20: Blood Type O POSITIVE, Antibody Screen NEGATIVE 07/26/19 15:35: Ur Random Sodium 9 Current Medications Dextrose (D50w Syringe) 0 gm IV X1 PRN; Protocol PRN Reason: Hypoglycemia Folic Acid (Folic Acid) 1 mg PO DAILY@0800 [facility] Last Admin: 07/26/19 08:34 Dose: 1 mg Documented by: Glucagon () 1 mg IM .X1 PRN PRN Reason: Hypoglycemia Cefepime HCl 2 gm/ Sodium (Chloride) 100 mls @ 200 mls/hr IV Q8 [facility] Last Infusion: 07/26/19 13:19 Dose: Infused Documented by: Vancomycin IV Pharmacy to Dose (1 ea/ Sodium Chloride) 500 mls @ 250 mls/hr IV X1 PRN; Protocol PRN Reason: Rx to Dose Sodium Chloride () 250 mls @ 15 mls/hr IV .[id number] PRN PRN Reason: Saline Flush Sodium Chloride () 250 mls @ 15 mls/hr IV .[id number] PRN PRN Reason: Additional IVPB Infusion Vancomycin HCl 1,250 mg/ (Sodium Chloride) 275 mls @ 167 mls/hr IV Q12H [facility] Last Admin: 07/26/19 15:21 Dose: 167 mls/hr Documented by: Lactulose (Chronulac, Cephulac) 20 gm PO DAILY [facility] Last Admin: 07/26/19 08:34 Dose: 20 gm Documented by: Midodrine (Proamatine) 10 mg PO TID [facility] Last Admin: 07/26/19 12:44 Dose: 10 mg Documented by: Ondansetron HCl (Zofran) 4 mg IV Q8H PRN PRN PRN Reason: NAUSEA/VOMITING Sodium Chloride () 10 - 40 ml IV UD PRN PRN Reason: SALINE FLUSH Last Admin: 07/25/19 19:56 Dose: 10 ml Documented by: Thiamine HCl (Vitamin B1) 100 mg PO DAILYCM [facility] Last Admin: 07/26/19 08:34 Dose: 100 mg Documented by: Medical Necessity - Tobacco Use Smoking Status: Current every day smoker Assessment/Plan All Active Problems Anasarca (Acute) Ascites (Acute) Hyponatremia (Acute) PETER (acute kidney injury) (Acute) Leukocytosis (Acute) Hyponatremia. Hypervolemic clinically. Related to cirrhosis. Na level improved at appropriate rated with volume expansion Agree with more IV albumin Continue holding diuretics Check Na in am No need for 3% NACl Acute renal failure. Baseline creatinine seems to be around 1.1 or so. from prerenal related to diuretics Improved with IV albumin. good UOP. doubt HRS continue holding diuretics Keep MAP > 65 Check renal function in am Sepsis, possible spontaneous bacterial peritonitis.
--- NOTE | 2019-07-26 17:30 | CASEMGMT ---
RN ROLLY MANAGER CONSUMER CM to room to meet with patient for initial transition planning/care coordination assessment. LAKESHIA LOFTON introduced self and role at [facility]. Pt voices understanding and consents to assessment at this time. Pt resting in bed in no distress at this time. Pt is A/O at this time and answers all questions appropriately. Care providers, pharmacy, and demographics verified/updated at this time. PCP: Dr Jeffers Specialists: Dr Pineda, Gastroenterolgy @ , Dr Chamberlain--Interventional radiologist. Pt gets paracentesis 2 x's/week. [facility] Insurance: [employer] Prescription Benefit: Yes Living Will/HPOA: does not have LW or HCPOA . Interested in more information and would like to talk with SW to complete paperwork. Order placed for SW consult. Pt states he will think about who he want to have as his POA, but for now, he would like his Ex-, Leonor, to make any decisions if he was unable to. LNOK: has a 16-yr-old son. States his parents are not living and he has no siblings. Ex-, Leonor, is only pet supplies salesperson listed. Living Arrangements: Lives alone in 2-story home. [employer]. 3 steps to enter. States his bedroom is on the lower level and d/t the swelling in his legs and breathing issues, that he does not go down the stairs to sleep, that he has been sleeping in his recliner. Pt states he is able to make his own meals, medication mgmt, and gets his own groceries. He is having some difficulty w/household cleaning. Transportation: Pt states drives self and states no transportation concerns at this time. States his landlord will take him home @ d/c. DME: Denies using any DME and denies needs. Ambulates independently. HHC/SNF: No history of either. Pt wishes to return home and denies wanting any HHC for nursing or therapy stating it is mostly household tasks/cleaning that he needs assist with. He states his ex- is a BSN and help with medication mgmt if he would need assistance or have questions. Pt has ETOH abuse. He states he has not had ETOH for approx 2 months since he was @ . States it has not been difficult for him to not drink at this time, as he is tyring to get on liver transplant list and needs to be ETOH free for 6 months. States he would be open to resources though. Pt states he is in the process of filing for disability. Pt voices no further concerns/needs at this time. Advised pt to ask for CM if any further questions/concerns/needs arise. Voices understanding. CM to follow for discharge planning/needs. PLAN: Pt wishes to return home and does want HHC. PT/OT evals pending. SW referral to talk with pt about Palliative care, AD, and ETOH abuse/history. Radha GOTTIN RN CM
[2019-07-27] VITALS (19 sets, daily range): BP systolic 90–119; BP diastolic 39–59; PULSE 64–82; RESP 15–20; TEMP 36.2–36.7; O2SAT 92–97
[2019-07-27 03:21] LABS: ALB/GLOB Ratio 0.4 RATIO (0.9-2.4); AST(SGOT) 58 U/L (15-37); Alanine Aminotransfer ALT/SGPT 37 U/L (16-61); Albumin, Serum 1.6 g/dL (3.2-5.0); Alkaline Phosphatase 211 U/L (45-117); Anion Gap 8 (5-15); BUN 54 mg/dL (7-18); BUN/Creat Ratio 33.3 RATIO (10-20); Calcium,Total 7.4 mg/dL (8.5-10.1); Chloride 99 mmol/L (98-107); Creatinine, Serum 1.62 mg/dL (0.70-1.30); EST Glomerular Filtration Rate 47 mL/min (>60); Est Glom Filt Rate - Afr Amer 57 mL/min (>60); Estimated Creatinine Clearance 55.52 ml/min; Globulin 3.6 g/dL (2.2-4.2); Glucose 98 mg/dL (74-106); Potassium 4.8 mmol/L (3.5-5.1); Protein, Total 5.2 g/dL (6.4-8.2); Sodium Level 126 mmol/L (136-145)
[2019-07-27 03:33] LABS: Absolute Lymphocyte Count 1.09 X10^3/uL (0.83-4.51); Absolute Neutrophil Count 13.6 X10^3/uL (2.0-7.7); Basophil# 0.09 X10^3/uL; Basophil% 0.5 % (0-1); Eosinophil# 0.57 X10^3/uL; Eosinophils% 3.2 % (0-5); Hematocrit 21.9 % (40-54); Hemoglobin 7.8 g/dL (13.0-16.5); Lymphocyte # 1.09 X10^3/ul (4.0); Lymphocyte % 6.1 % (19-41); Mean Corp Hgb Conc 35.6 g/dL (32-36); Mean Corpuscular Hgb 33.5 pg (27.0-32.0); Mean Platelet Vol. 10.1 fl (6.2-12.0); Monocyte# 1.59 X10^3/uL; Monocyte% 8.9 % (0-10); NRBC Flagged by Analyzer 0 % (0-5); Neutrophil # 13.62 X10^3/uL (2.7-7.7); Neutrophil % 76.4 % (47-70); POSITIVE DIFFERENTIAL YES; Platelet Count 104 K/mm3 (150-450); RBC Distribution Width SD 44.5 fl (35.1-43.9); Red Blood Count 2.33 M/mm3 (4.6-6.2); White Blood Count 17.8 K/mm3 (4.4-11.0)
[2019-07-27 03:51] LABS: Vancomycin, Trough Level 23.9 ug/mL (5.0-15.0)
--- NOTE | 2019-07-27 04:26 | PCM.RX.CS ---
Consult Pharmacy has been consulted to manage selected antiobiotic: Vancomycin Type of Consult: Follow-up Labs: Sodium 126 mmol/L (136-145) L 07/27/19 02:45 Potassium 4.8 mmol/L (3.5-5.1) 07/27/19 02:45 Chloride 99 mmol/L (98-107) 07/27/19 02:45 Carbon Dioxide 19.0 mmol/L (21.0-32.0) L 07/27/19 02:45 Anion Gap 8 (5-15) 07/27/19 02:45 BUN 54 mg/dL (7-18) H 07/27/19 02:45 Creatinine 1.62 mg/dL (0.70-1.30) H 07/27/19 02:45 Est GFR (MDRD) Af Amer 57 mL/min (>60) L 07/27/19 02:45 Est GFR (MDRD) Non-Af 47 mL/min (>60) L 07/27/19 02:45 BUN/Creatinine Ratio 33.3 RATIO (10-20) H 07/27/19 02:45 Glucose 98 mg/dL (74-106) 07/27/19 02:45 Vancomycin Trough 23.9 ug/mL (5.0-15.0) H 07/27/19 02:45 Microbiology: Microbiology 07/25/19 10:47 Blood Culture (Wb) - Left Forearm Bacteria Detection (PCR) - Final Meth. resistant Staph. aureus 07/25/19 10:47 Blood Culture (Wb) - Left Forearm Blood Culture - Preliminary 07/25/19 13:40 Fluid - Ascites Gram Stain - Final 07/25/19 13:40 Fluid - Ascites Body Fluid Culture - Preliminary No growth-Final to follow 07/25/19 11:33 Blood Culture (Wb) - Anticubital Right Blood Culture - Preliminary Goal Trough: 15-20 mcg/mL Pharmacy Plan for Drug Dosing: Pharmacy Service will continue to monitor and adjust dosing as required. TROUGH 23.9 HOLD 0330 DOSE AND DRAW RANDOM TROUGH 07/26 @ 1100 Follow-Up Labs: Trough Vancomycin Labs to be done on [date and time ordered]: 07/26 @ 1100
[2019-07-27 04:32] LABS: Differential Indicated SCAN CRITERIA MET
[2019-07-27] MEDS: Midodrine HCl 5 MG Tablet 10 MG PO ×3 (05:49→22:18)
--- NOTE | 2019-07-27 06:11 | PN_ITS ---
Subjective: The patient was seen and examined at the bedside this morning. Events from the last 24 hours have been reviewed. The patient is currently afebrile, hemodynamically stable and maintaining appropriate oxygen saturations on room air. I did receive a call yesterday from the echocardiogram hemodialysis technician who indicated that due to poor acoustic windows, they were unable to fully visualize the patient's valves via surface echocardiogram and were therefore unable to evaluate for endocarditis. Objective: The patient's most recent lab work, culture data and imaging studies have all been personally reviewed. Preliminary blood culture on July 24 was positive for MRSA. Ascites fluid culture is pending. Urine culture is pending. CT chest revealed evidence of a cirrhotic liver along with a small left pleural effusion and left basilar atelectasis. Ultrasound-guided paracentesis was completed with 9 L of fluid removed. General: Alert, Cooperative, No apparent distress HEENT: Atraumatic, PERRLA, Normocephalic Oral: Moist Mucosa Neck: Supple, No Nodes, Trachea Midline Lungs: No rhonchi, No wheeze, Diminished, Rales, - - No conversational dyspnea Cardiovascular: Regular rate, Regular Rhythm, Normal S1, Normal S2, No murmurs Abdomen: Bowel Sounds Present, Soft, Non Tender, Distended Extremities: No clubbing, No cyanosis, Edema Skin: - - No significant change from previous Musculoskeletal: No Tenderness to Palpation of Joints or Extremities Lymphatic: No Cervical, Supraclavicular, or Inguinal Adenopathy Neurological: Cranial nerves II-XII grossly intact, Neuro grossly intact Psych/Mental Status: Normal Affect, Appropriate Vital Signs Temp Pulse Resp BP Pulse Ox 97.8 F 76 18 114/42 L 93 07/27/19 04:00 07/27/19 06:00 07/27/19 06:00 07/27/19 06:00 07/27/19 06:00 Oxygen Flow Rate (L/min) [7] 6 Oxygen Flow Rate (L/min) [6] 4 Oxygen Flow Rate (L/min) 2 Oxygen Delivery Method [7] Nasal Cannula Oxygen Delivery Method [6] Nasal Cannula Oxygen Delivery Method [5] Nasal Cannula Oxygen Delivery Method [4] Room Air Oxygen Delivery Method [3] Room Air Oxygen Delivery Method [2] Room Air Oxygen Delivery Method [1 ( Room Air Initial Baseline)] Oxygen Delivery Method Room Air Weight: 271 lb 9.752 oz Body Mass Index (BMI) 36.4 Intake and Output for Last 24 Hours 07/25/19 07/26/19 07/27/19 23:59 23:59 23:59 Intake Total 2673.00 / 2793.00 4380.83 / 4380.83 130 / 130 Output Total 9000 / 9000 2049 250 / 250 Balance -6327.00 / -6207.00 2330.83 / 2330.83 -120 / -120 Labs (Last 48 Hours) 07/25/19 07/25/19 07/25/19 10:40 10:47 10:47 WBC 32.8 H* RBC 2.66 L Hgb 9.0 L Hct 25.0 L MCV 94.0 MCH 33.8 H MCHC 36.0 RDW Std Deviation 44.4 H RDW Coeff of Pravin 13.0 Plt Count 159 MPV 9.7 Immature Gran % (Auto) 3.800 H Neut % (Auto) 84.1 H Lymph % (Auto) 3.3 L [place] % (Auto) 7.6 Eos % (Auto) 0.9 Baso % (Auto) 0.3 Absolute Neuts (auto) 27.6 H Absolute Lymphs (auto) 1.07 Nucleated RBC % 0 Differential Comment SEVERAL BANDS NOTED Diff Path Review May foll Platelet Estimate Crenated Cell PT 22.7 H INR 2.1 Sodium Potassium Chloride Carbon Dioxide Anion Gap BUN Creatinine Estim Creat Clear Calc Est GFR (MDRD) Af Amer Est GFR (MDRD) Non-Af BUN/Creatinine Ratio Glucose Serum Osmolality Lactic Acid Calcium Total Bilirubin Direct Bilirubin AST ALT Alkaline Phosphatase Ammonia Troponin I Total Protein Albumin Globulin Albumin/Globulin Ratio Lipase Urine Color Urine Clarity Urine pH Ur Specific [place] Urine Protein Urine Glucose (UA) Urine Ketones Urine Occult Blood Urine Nitrite Urine Bilirubin Urine Urobilinogen Ur Leukocyte Esterase Urine RBC Urine WBC Ur Squamous Epith Cells Urine Bacteria Urine Mucus Ur Random Sodium Fluid Source Fluid Color Fluid Appearance Fluid WBC Fluid RBC Fluid Tot Cell Count Fld Polynuclear WBCs # Fld Polynuclear WBCs % Fluid Mononuclear WBCs Fld Mononuclear WBCs % Fluid Neutrophils Fluid Lymphocytes Fluid Monocytes Fld Mesothelial Cells Fl Pathologist Comment Fluid Glucose Fluid Total Protein Fluid LDH Fluid Amylase Fluid Comment 2 Vancomycin Trough COVID-19 (JOAN) Negative Miscellaneous Cytology Blood Type Antibody Screen 07/25/19 07/25/19 07/25/19 10:47 10:47 10:47 WBC RBC Hgb Hct MCV MCH MCHC RDW Std Deviation RDW Coeff of Pravin Plt Count MPV Immature Gran % (Auto) Neut % (Auto) Lymph % (Auto) [place] % (Auto) Eos % (Auto) Baso % (Auto) Absolute Neuts (auto) Absolute Lymphs (auto) Nucleated RBC % Differential Comment Diff Path Review Platelet Estimate Crenated Cell PT INR Sodium 119 L* Potassium 4.8 Chloride 93 L Carbon Dioxide 18.0 L Anion Gap 8 BUN 49 H Creatinine 1.95 H Estim Creat Clear Calc 46.12 Est GFR (MDRD) Af Amer 46 L Est GFR (MDRD) Non-Af 38 L BUN/Creatinine Ratio 25.1 H Glucose 119 H Serum Osmolality Lactic Acid 2.2 H* Calcium 7.3 L Total Bilirubin 3.90 H Direct Bilirubin 3.08 H AST 55 H ALT 41 Alkaline Phosphatase 284 H Ammonia 49.0 H Troponin I < 0.015 Total Protein 5.8 L Albumin 1.6 L Globulin 4.2 Albumin/Globulin Ratio Lipase 208 Urine Color Urine Clarity Urine pH Ur Specific [place] Urine Protein Urine Glucose (UA) Urine Ketones Urine Occult Blood Urine Nitrite Urine Bilirubin Urine Urobilinogen Ur Leukocyte Esterase Urine RBC Urine WBC Ur Squamous Epith Cells Urine Bacteria Urine Mucus Ur Random Sodium Fluid Source Fluid Color Fluid Appearance Fluid WBC Fluid RBC Fluid Tot Cell Count Fld Polynuclear WBCs # Fld Polynuclear WBCs % Fluid Mononuclear WBCs Fld Mononuclear WBCs % Fluid Neutrophils Fluid Lymphocytes Fluid Monocytes Fld Mesothelial Cells Fl Pathologist Comment Fluid Glucose Fluid Total Protein Fluid LDH Fluid Amylase Fluid Comment 2 Vancomycin Trough COVID-19 (JOAN) Miscellaneous Cytology Blood Type Antibody Screen 07/25/19 07/25/19 07/25/19 13:40 13:40 13:40 WBC RBC Hgb Hct MCV MCH MCHC RDW Std Deviation RDW Coeff of Pravin Plt Count MPV Immature Gran % (Auto) Neut % (Auto) Lymph % (Auto) [place] % (Auto) Eos % (Auto) Baso % (Auto) Absolute Neuts (auto) Absolute Lymphs (auto) Nucleated RBC % Differential Comment Diff Path Review Platelet Estimate Crenated Cell PT INR Sodium Potassium Chloride Carbon Dioxide Anion Gap BUN Creatinine Estim Creat Clear Calc Est GFR (MDRD) Af Amer Est GFR (MDRD) Non-Af BUN/Creatinine Ratio Glucose Serum Osmolality Lactic Acid Calcium Total Bilirubin Direct Bilirubin AST ALT Alkaline Phosphatase Ammonia Troponin I Total Protein Albumin Globulin Albumin/Globulin Ratio Lipase Urine Color Urine Clarity Urine pH Ur Specific [place] Urine Protein Urine Glucose (UA) Urine Ketones Urine Occult Blood Urine Nitrite Urine Bilirubin Urine Urobilinogen Ur Leukocyte Esterase Urine RBC Urine WBC Ur Squamous Epith Cells Urine Bacteria Urine Mucus Ur Random Sodium Fluid Source TNP Fluid Color LT YEL Fluid Appearance CLOUDY Fluid WBC 9.650 Fluid RBC 365 Fluid Tot Cell Count 9.768 Fld Polynuclear WBCs # 8.529 Fld Polynuclear WBCs % 88.4 Fluid Mononuclear WBCs 1.121 Fld Mononuclear WBCs % 11.6 Fluid Neutrophils 89 Fluid Lymphocytes 1 Fluid Monocytes 8 Fld Mesothelial Cells 2 Fl Pathologist Comment May follow Fluid Glucose 116 H Fluid Total Protein 0.4 Fluid LDH 50 Fluid Amylase Pending Fluid Comment 2 Not Reportable Vancomycin Trough COVID-19 (JOAN) Miscellaneous Cytology Blood Type Antibody Screen 07/25/19 07/25/19 07/25/19 13:40 15:20 18:20 WBC RBC Hgb Hct MCV MCH MCHC RDW Std Deviation RDW Coeff of Pravin Plt Count MPV Immature Gran % (Auto) Neut % (Auto) Lymph % (Auto) [place] % (Auto) Eos % (Auto) Baso % (Auto) Absolute Neuts (auto) Absolute Lymphs (auto) Nucleated RBC % Differential Comment Diff Path Review Platelet Estimate Crenated Cell PT 22.4 H INR 2.0 Sodium Potassium Chloride Carbon Dioxide Anion Gap BUN Creatinine Estim Creat Clear Calc Est GFR (MDRD) Af Amer Est GFR (MDRD) Non-Af BUN/Creatinine Ratio Glucose Serum Osmolality Lactic Acid 2.1 H* Calcium Total Bilirubin Direct Bilirubin AST ALT Alkaline Phosphatase Ammonia Troponin I Total Protein Albumin Globulin Albumin/Globulin Ratio Lipase Urine Color Urine Clarity Urine pH Ur Specific [place] Urine Protein Urine Glucose (UA) Urine Ketones Urine Occult Blood Urine Nitrite Urine Bilirubin Urine Urobilinogen Ur Leukocyte Esterase Urine RBC Urine WBC Ur Squamous Epith Cells Urine Bacteria Urine Mucus Ur Random Sodium Fluid Source Fluid Color Fluid Appearance Fluid WBC Fluid RBC Fluid Tot Cell Count Fld Polynuclear WBCs # Fld Polynuclear WBCs % Fluid Mononuclear WBCs Fld Mononuclear WBCs % Fluid Neutrophils Fluid Lymphocytes Fluid Monocytes Fld Mesothelial Cells Fl Pathologist Comment Fluid Glucose Fluid Total Protein Fluid LDH Fluid Amylase Fluid Comment 2 Vancomycin Trough COVID-19 (JOAN) Miscellaneous Cytology Pending Blood Type Antibody Screen 07/26/19 07/26/19 07/26/19 01:25 04:15 04:15 WBC 21.1 H RBC 2.28 L Hgb 7.7 L Hct 21.4 L MCV 93.9 MCH 33.8 H MCHC 36.0 RDW Std Deviation 43.8 RDW Coeff of Pravin 12.9 Plt Count 103 L MPV 9.8 Immature Gran % (Auto) 3.500 H Neut % (Auto) 81.2 H Lymph % (Auto) 5.3 L [place] % (Auto) 8.5 Eos % (Auto) 1.3 Baso % (Auto) 0.2 Absolute Neuts (auto) 17.2 H Absolute Lymphs (auto) 1.11 Nucleated RBC % 0 Differential Comment COMMENT Diff Path Review May foll Platelet Estimate SLT DEC Crenated Cell RARE PT 25.1 H INR 2.3 Sodium Potassium Chloride Carbon Dioxide Anion Gap BUN Creatinine Estim Creat Clear Calc Est GFR (MDRD) Af Amer Est GFR (MDRD) Non-Af BUN/Creatinine Ratio Glucose Serum Osmolality Lactic Acid Calcium Total Bilirubin Direct Bilirubin AST ALT Alkaline Phosphatase Ammonia Troponin I Total Protein Albumin Globulin Albumin/Globulin Ratio Lipase Urine Color Yellow Urine Clarity Clear Urine pH 5.0 Ur Specific [place] 1.015 Urine Protein Negative Urine Glucose (UA) Normal Urine Ketones Negative Urine Occult Blood Negative Urine Nitrite Negative Urine Bilirubin Negative Urine Urobilinogen Normal Ur Leukocyte Esterase Negative Urine RBC 0 SEEN Urine WBC 0 SEEN Ur Squamous Epith Cells 0-5 SEEN Urine Bacteria 0 SEEN Urine Mucus 0 SEEN Ur Random Sodium Fluid Source Fluid Color Fluid Appearance Fluid WBC Fluid RBC Fluid Tot Cell Count Fld Polynuclear WBCs # Fld Polynuclear WBCs % Fluid Mononuclear WBCs Fld Mononuclear WBCs % Fluid Neutrophils Fluid Lymphocytes Fluid Monocytes Fld Mesothelial Cells Fl Pathologist Comment Fluid Glucose Fluid Total Protein Fluid LDH Fluid Amylase Fluid Comment 2 Vancomycin Trough COVID-19 (JOAN) Miscellaneous Cytology Blood Type Antibody Screen 07/26/19 07/26/19 07/26/19 04:15 04:15 08:20 WBC RBC Hgb Hct MCV MCH MCHC RDW Std Deviation RDW Coeff of Pravin Plt Count MPV Immature Gran % (Auto) Neut % (Auto) Lymph % (Auto) [place] % (Auto) Eos % (Auto) Baso % (Auto) Absolute Neuts (auto) Absolute Lymphs (auto) Nucleated RBC % Differential Comment Diff Path Review Platelet Estimate Crenated Cell PT INR Sodium 124 L Potassium 4.5 Chloride 96 L Carbon Dioxide 19.0 L Anion Gap 9 BUN 52 H Creatinine 1.73 H Estim Creat Clear Calc 51.99 Est GFR (MDRD) Af Amer 53 L Est GFR (MDRD) Non-Af 44 L BUN/Creatinine Ratio 30.1 H Glucose 117 H Serum Osmolality 263 L Lactic Acid Calcium 7.2 L Total Bilirubin 3.40 H Direct Bilirubin AST 44 H ALT 33 Alkaline Phosphatase 208 H Ammonia Troponin I Total Protein 4.8 L Albumin 1.5 L Globulin 3.3 Albumin/Globulin Ratio 0.5 L Lipase Urine Color Urine Clarity Urine pH Ur Specific [place] Urine Protein Urine Glucose (UA) Urine Ketones Urine Occult Blood Urine Nitrite Urine Bilirubin Urine Urobilinogen Ur Leukocyte Esterase Urine RBC Urine WBC Ur Squamous Epith Cells Urine Bacteria Urine Mucus Ur Random Sodium Fluid Source Fluid Color Fluid Appearance Fluid WBC Fluid RBC Fluid Tot Cell Count Fld Polynuclear WBCs # Fld Polynuclear WBCs % Fluid Mononuclear WBCs Fld Mononuclear WBCs % Fluid Neutrophils Fluid Lymphocytes Fluid Monocytes Fld Mesothelial Cells Fl Pathologist Comment Fluid Glucose Fluid Total Protein Fluid LDH Fluid Amylase Fluid Comment 2 Vancomycin Trough COVID-19 (JOAN) Miscellaneous Cytology Blood Type O POSITIVE Antibody Screen NEGATIVE 07/26/19 07/27/19 07/27/19 15:35 02:45 02:45 WBC 17.8 H RBC 2.33 L Hgb 7.8 L Hct 21.9 L MCV 94.0 MCH 33.5 H MCHC 35.6 RDW Std Deviation 44.5 H RDW Coeff of Pravin 13.0 Plt Count 104 L MPV 10.1 Immature Gran % (Auto) 4.900 H Neut % (Auto) 76.4 H Lymph % (Auto) 6.1 L [place] % (Auto) 8.9 Eos % (Auto) 3.2 Baso % (Auto) 0.5 Absolute Neuts (auto) 13.6 H Absolute Lymphs (auto) 1.09 Nucleated RBC % 0 Differential Comment COMMENT Diff Path Review May foll Platelet Estimate Crenated Cell PT INR Sodium Potassium Chloride Carbon Dioxide Anion Gap BUN Creatinine Estim Creat Clear Calc Est GFR (MDRD) Af Amer Est GFR (MDRD) Non-Af BUN/Creatinine Ratio Glucose Serum Osmolality Lactic Acid Calcium Total Bilirubin Direct Bilirubin AST ALT Alkaline Phosphatase Ammonia Troponin I Total Protein Albumin Globulin Albumin/Globulin Ratio Lipase Urine Color Urine Clarity Urine pH Ur Specific [place] Urine Protein Urine Glucose (UA) Urine Ketones Urine Occult Blood Urine Nitrite Urine Bilirubin Urine Urobilinogen Ur Leukocyte Esterase Urine RBC Urine WBC Ur Squamous Epith Cells Urine Bacteria Urine Mucus Ur Random Sodium 9 Fluid Source Fluid Color Fluid Appearance Fluid WBC Fluid RBC Fluid Tot Cell Count Fld Polynuclear WBCs # Fld Polynuclear WBCs % Fluid Mononuclear WBCs Fld Mononuclear WBCs % Fluid Neutrophils Fluid Lymphocytes Fluid Monocytes Fld Mesothelial Cells Fl Pathologist Comment Fluid Glucose Fluid Total Protein Fluid LDH Fluid Amylase Fluid Comment 2 Vancomycin Trough 23.9 H COVID-19 (JOAN) Miscellaneous Cytology Blood Type Antibody Screen 07/27/19 02:45 WBC RBC Hgb Hct MCV MCH MCHC RDW Std Deviation RDW Coeff of Pravin Plt Count MPV Immature Gran % (Auto) Neut % (Auto) Lymph % (Auto) [place] % (Auto) Eos % (Auto) Baso % (Auto) Absolute Neuts (auto) Absolute Lymphs (auto) Nucleated RBC % Differential Comment Diff Path Review Platelet Estimate Crenated Cell PT INR Sodium 126 L Potassium 4.8 Chloride 99 Carbon Dioxide 19.0 L Anion Gap 8 BUN 54 H Creatinine 1.62 H Estim Creat Clear Calc 55.52 Est GFR (MDRD) Af Amer 57 L Est GFR (MDRD) Non-Af 47 L BUN/Creatinine Ratio 33.3 H Glucose 98 Serum Osmolality Lactic Acid Calcium 7.4 L Total Bilirubin 2.90 H Direct Bilirubin AST 58 H ALT 37 Alkaline Phosphatase 211 H Ammonia Troponin I Total Protein 5.2 L Albumin 1.6 L Globulin 3.6 Albumin/Globulin Ratio 0.4 L Lipase Urine Color Urine Clarity Urine pH Ur Specific [place] Urine Protein Urine Glucose (UA) Urine Ketones Urine Occult Blood Urine Nitrite Urine Bilirubin Urine Urobilinogen Ur Leukocyte Esterase Urine RBC Urine WBC Ur Squamous Epith Cells Urine Bacteria Urine Mucus Ur Random Sodium Fluid Source Fluid Color Fluid Appearance Fluid WBC Fluid RBC Fluid Tot Cell Count Fld Polynuclear WBCs # Fld Polynuclear WBCs % Fluid Mononuclear WBCs Fld Mononuclear WBCs % Fluid Neutrophils Fluid Lymphocytes Fluid Monocytes Fld Mesothelial Cells Fl Pathologist Comment Fluid Glucose Fluid Total Protein Fluid LDH Fluid Amylase Fluid Comment 2 Vancomycin Trough COVID-19 (JOAN) Miscellaneous Cytology Blood Type Antibody Screen Microbiology 07/25/19 10:47 Blood Culture (Wb) - Left Forearm Bacteria Detection (PCR) - Final Meth. resistant Staph. aureus 07/25/19 10:47 Blood Culture (Wb) - Left Forearm Blood Culture - Preliminary 07/25/19 13:40 Fluid - Ascites Gram Stain - Final 07/25/19 13:40 Fluid - Ascites Body Fluid Culture - Preliminary No growth-Final to follow 07/25/19 11:33 Blood Culture (Wb) - Anticubital Right Blood Culture - Preliminary Clinical Impression(s) from Imaging Studies Chest X-Ray 07/25/19 10:23 IMPRESSION: Normal x-ray examination of the chest. Electronically Signed: Demar Chamberlain at 11:14 EDT , Service support , Chest CT 07/25/19 12:32 IMPRESSION: Small left pleural effusion with left basilar atelectasis. Ascites. Possible peritoneal metastasis. Electronically Signed: Demar Chamberlain at 13:31 EDT , Service support , ADDENDUM: 07/25/19 1339 Paracentesis Ultrasound 07/25/19 12:45 IMPRESSION: Ultrasound guided paracentesis. Electronically Signed: Demar Chamberlain at 14:49 EDT , Service support , Medical Necessity - Tobacco Use Smoking Status: Current every day smoker Assessment/Plan All Active Problems Anasarca (Acute) Ascites (Acute) Hyponatremia (Acute) PETER (acute kidney injury) (Acute) Leukocytosis (Acute) RECOMMENDATIONS: 1. Continue antimicrobials as ordered. 2. Given that surface echocardiogram was unable to be performed, may need to consider MEHUL. 3. Continue to monitor blood counts daily. Transfuse if hemoglobin drops below 7 g/dL. 4. Continue scheduled Midodrine. 5. Encourage incentive spirometer use and mobilize patient as tolerated. IMPRESSIONS: 1. Severe sepsis secondary to MRSA bacteremia Although SBP was an initial consideration, the patient's blood cultures obtained on July 24 were subsequently found to be positive for gram-positive cocci in clusters. The patient's hemodynamics have improved over the last 24 hours. He did receive albumin supplementation, given that he underwent a large-volume paracentesis on July 24. Plan to continue empiric antimicrobials. Repeat blood cultures are currently pending. Poor acoustic windows were obtained with surface echocardiogram. Assessment for endocarditis was unable to be performed. 2. Normocytic anemia The patient has known, chronic anemia. Continue to monitor blood counts daily. Transfuse if hemoglobin drops below 7 g/dL. 3. Acute kidney injury Improving. Clinical concern for hepatorenal syndrome. Nephrology is currently following. Continue to monitor urine output accordingly. No current indication for renal replacement therapy. 4. Hyponatremia Likely secondary to underlying cirrhosis and volume status. 5. Alcoholic cirrhosis The patient has a known history of alcoholic cirrhosis. He requires frequent paracenteses. Patient reports that he has been followed by Dr. Pineda at [facility]. Transplantation has been discussed in the past. However, the patient has yet to be abstinent from alcohol for a period of 6 months. 6. Tobacco dependency Complicates care, management, recovery and prognosis. Smoking cessation counseling provided. Nicotine replacement therapy can be offered to the patient while admitted to the hospital. This note was generated with [employer] dictation software. It may contain incorrect words, spelling, and punctuation that were not noted in checking the note before signing. Inpatient E&M: [id number] [facility] L3
[2019-07-27] MEDS: Thiamine Hydrochloride 100 MG Tablet PO (08:40)
[2019-07-27] MEDS: Folic Acid 1 MG Tablet PO (08:41)
[2019-07-27] MEDS: Lactulose 20 GM/30 ML UDC PO (08:41)
--- NOTE | 2019-07-27 09:46 | PN_ITS ---
Patient Problems: Active and Suspected Problems Anasarca (Acute) Ascites (Acute) Hyponatremia (Acute) PETER (acute kidney injury) (Acute) Leukocytosis (Acute) Subjective: Patient seen and examined. He has no complaints today and feels well. Review of systems otherwise negative. Blood culture was positive for MRSA. Sodium is up to 126. Creatinine is down to 1.62. Vitals/I&O's: Vital Signs Temp Pulse Resp BP Pulse Ox 97.8 F 74 17 113/46 L 95 07/27/19 04:00 07/27/19 08:00 07/27/19 07:00 07/27/19 07:00 07/27/19 07:00 Oxygen Flow Rate (L/min) [7] 6 Oxygen Flow Rate (L/min) [6] 4 Oxygen Flow Rate (L/min) 2 Oxygen Delivery Method [7] Nasal Cannula Oxygen Delivery Method [6] Nasal Cannula Oxygen Delivery Method [5] Nasal Cannula Oxygen Delivery Method [4] Room Air Oxygen Delivery Method [3] Room Air Oxygen Delivery Method [2] Room Air Oxygen Delivery Method [1 ( Room Air Initial Baseline)] Oxygen Delivery Method Room Air Weight: 271 lb 9.752 oz Body Mass Index (BMI) 36.4 Intake and Output for Last 24 Hours 07/25/19 07/26/19 07/27/19 23:59 23:59 23:59 Intake Total 2673.00 / 2793.00 4380.83 / 4380.83 470 / 470 Output Total 9000 / 9000 2050 / 2050 250 / 250 Balance -6327.00 / -6207.00 2330.83 / 2330.83 220 / 220 General: Alert, Oriented x3, Cooperative, No apparent distress HEENT: Atraumatic, PERRLA, EOMI, Normocephalic, - - jaundiced sclera Oral: Dry Mucosa Neck: Supple, No JVD, Negative Carotid Bruits Lungs: - - clear to auscultation; on room air. Cardiovascular: Regular rate, Regular Rhythm, Normal S1, Normal S2, No murmurs Abdomen: Bowel Sounds Present, Soft, Non Tender, Non-Distended, - - massive ascites with positive fluid thrill Extremities: No clubbing, No cyanosis, - - bilateral LE pitting pedal edema 2+ Skin: No rashes, No breakdown small umbilicated papule beneath right eye; appears to have rolled edges,k nontender Musculoskeletal: No Tenderness to Palpation of Joints or Extremities Lymphatic: No Cervical, Supraclavicular, or Inguinal Adenopathy Neurological: Cranial nerves II-XII grossly intact, Neuro grossly intact, Motor Exam 5/5 strength throughout, - - no asterixis Psych/Mental Status: Normal Affect, Appropriate, Alert and oriented to time, place, person, mood and affect Microbiology Past 72 Hours 07/25/19 11:33 Blood Culture (Wb) - Anticubital Right Blood Culture - Final Staphylococcus aureus 07/25/19 10:47 Blood Culture (Wb) - Left Forearm Bacteria Detection (PCR) - Final Meth. resistant Staph. aureus 07/25/19 10:47 Blood Culture (Wb) - Left Forearm Blood Culture - Final Meth. resistant Staph. aureus 07/25/19 13:40 Fluid - Ascites Gram Stain - Final 07/25/19 13:40 Fluid - Ascites Body Fluid Culture - Preliminary No growth-Final to follow Laboratory Results 07/26/19 08:20: Blood Type O POSITIVE, Antibody Screen NEGATIVE 07/26/19 15:35: Ur Random Sodium 9 07/27/19 02:45: Vancomycin Trough 23.9 H 07/27/19 02:45: WBC 17.8 H, RBC 2.33 L, Hgb 7.8 L, Hct 21.9 L, MCV 94.0, MCH 33.5 H, MCHC 35.6, RDW Std Deviation 44.5 H, RDW Coeff of Pravin 13.0, Plt Count 104 L, MPV 10.1, Immature Gran % (Auto) 4.900 H, Neut % (Auto) 76.4 H, Lymph % (Auto) 6.1 L, [place] % (Auto) 8.9, Eos % (Auto) 3.2, Baso % (Auto) 0.5, Absolute Neuts (auto) 13.6 H, Absolute Lymphs (auto) 1.09, Nucleated RBC % 0, Differential Comment COMMENT, Diff Path Review June07/27/19 02:45: Sodium 126 L, Potassium 4.8, Chloride 99, Carbon Dioxide 19.0 L, Anion Gap 8, BUN 54 H, Creatinine 1.62 H, Estim Creat Clear Calc 55.52, Est GFR (MDRD) Af Amer 57 L, Est GFR (MDRD) Non-Af 47 L, BUN/Creatinine Ratio 33.3 H, Glucose 98, Calcium 7.4 L, Total Bilirubin 2.90 H, AST 58 H, ALT 37, Alkaline Phosphatase 211 H, Total Protein 5.2 L, Albumin 1.6 L, Globulin 3.6, Albumin/Globulin Ratio 0.4 L Diagnostic Data Chest X-Ray 07/25/19 10:23 IMPRESSION: Normal x-ray examination of the chest. Electronically Signed: Demar Chamberlain, at 11:14 EDT , Service support , Chest CT 07/25/19 12:32 IMPRESSION: Small left pleural effusion with left basilar atelectasis. Ascites. Possible peritoneal metastasis. Electronically Signed: Demar Chamberlain at 13:31 EDT , Service support , ADDENDUM: 07/25/19 1339 Paracentesis Ultrasound 07/25/19 12:45 IMPRESSION: Ultrasound guided paracentesis. Electronically Signed: Demar Chamberlain at 14:49 EDT , Service support , Current Medications Dextrose (D50w Syringe) 0 gm IV X1 PRN; Protocol PRN Reason: Hypoglycemia Folic Acid (Folic Acid) 1 mg PO DAILY@0800 [facility] Last Admin: 07/27/19 08:41 Dose: 1 mg Documented by: Glucagon () 1 mg IM .X1 PRN PRN Reason: Hypoglycemia Cefepime HCl 2 gm/ Sodium (Chloride) 100 mls @ 200 mls/hr IV Q8 [facility] Last Infusion: 07/27/19 06:19 Dose: Infused Documented by: Vancomycin IV Pharmacy to Dose (1 ea/ Sodium Chloride) 500 mls @ 250 mls/hr IV X1 PRN; Protocol PRN Reason: Rx to Dose Sodium Chloride () 250 mls @ 15 mls/hr IV .[id number] PRN PRN Reason: Saline Flush Sodium Chloride () 250 mls @ 15 mls/hr IV .[id number] PRN PRN Reason: Additional IVPB Infusion Lactulose (Chronulac, Cephulac) 20 gm PO DAILY [facility] Last Admin: 07/27/19 08:41 Dose: 20 gm Documented by: Midodrine (Proamatine) 10 mg PO TID [facility] Last Admin: 07/27/19 05:49 Dose: 10 mg Documented by: Ondansetron HCl (Zofran) 4 mg IV Q8H PRN PRN PRN Reason: NAUSEA/VOMITING Sodium Chloride () 10 - 40 ml IV UD PRN PRN Reason: SALINE FLUSH Last Admin: 07/25/19 19:56 Dose: 10 ml Documented by: Thiamine HCl (Vitamin B1) 100 mg PO DAILYCM [facility] Last Admin: 07/27/19 08:40 Dose: 100 mg Documented by: STROKE Vital Signs/Narrative: Vital Signs Pulse Resp BP Pulse Ox 07/27/19 08:00 74 07/27/19 07:00 72 17 113/46 L 95 07/27/19 06:00 76 18 114/42 L 93 Medical Necessity - Tobacco Use Smoking Status: Current every day smoker Assessment/Plan All Active Problems Anasarca (Acute) Ascites (Acute) Hyponatremia (Acute) PETER (acute kidney injury) (Acute) Leukocytosis (Acute) 1. Acute on chronic hyponatremia * sodium is up to 129 today. Serum osmolality was 263. * lasix and spironolactone on hold * likely due to alcoholic liver cirrhosis and dehydration. * nephrology on board * started on midodrine to help with low blood pressure. * 2. Sepsis, possibly due to SBP * blood cultures growing MRSA; wbc is down to 17.8 * ascitic fluid was negative for SPB, * ascitic fluid culture pending * on IV vancomycin and zosun * urine cultures pending * COVID screen was negative * 2D echo ordered- it was not done yesterday as sleep technician had technical difficulties * will order MEHUL- discussed with Dr Jade * 3. Ascites due to alcoholic liver cirrhosis * Had paracentesis on Sunday with removal of 9 L of fluid. * received IV albumin 25gram x 2 * to have paracentesis tomorrow,a s he has it twice weekly * 4. Alcoholic liver cirrhosis: * furosemide and spironolactone still on hold o/a of hyopotension * BP has improved. was hypotensive on admission. * 5. PETER: * there is concern for hepatorenal syndrome. * nephrology on board * Cr is down to 1.63, with baseline of 1.06 * 6. Chronic normocytic anemia * HemoGlobin today is 7.8 * Baseline hemoglobin is around 7-8. Continue monitoring and transfuse if hemoglobin drops below 7. * 7. Thrombocytopenia: Platelets platelets are 104 today. WIll monitor. DVT prophylaxis: SCDs CODE STATUS: Full code * Inpatient E&M: 24137 Subs Hosp L2
[2019-07-27 11:10] LABS: Amylase Body Fluid 9 U/L (.)
--- NOTE | 2019-07-27 11:48 | NURSING ---
Attempted to update Leonor, patient's ex- that he has been moved from ICU to PCU. No answer. Message left on voicemail to return call.
[2019-07-27 12:52] LABS: Vancomycin, Random Level 20.8 ug/mL (0.0-15.0)
--- NOTE | 2019-07-27 15:47 | PCM.RX.CS ---
Consult Pharmacy has been consulted to manage selected antiobiotic: Vancomycin Type of Consult: Follow-up Suspected Infection: Sepsis, Bacteremia Prior Doses of Antibiotics Received/Current Regimen: the patient had been on 1250mg IV q12h before it was held due to a high trough level early this morning Labs: Sodium 126 mmol/L (136-145) L 07/27/19 02:45 Potassium 4.8 mmol/L (3.5-5.1) 07/27/19 02:45 Chloride 99 mmol/L (98-107) 07/27/19 02:45 Carbon Dioxide 19.0 mmol/L (21.0-32.0) L 07/27/19 02:45 Anion Gap 8 (5-15) 07/27/19 02:45 BUN 54 mg/dL (7-18) H 07/27/19 02:45 Creatinine 1.62 mg/dL (0.70-1.30) H 07/27/19 02:45 Est GFR (MDRD) Af Amer 57 mL/min (>60) L 07/27/19 02:45 Est GFR (MDRD) Non-Af 47 mL/min (>60) L 07/27/19 02:45 BUN/Creatinine Ratio 33.3 RATIO (10-20) H 07/27/19 02:45 Glucose 98 mg/dL (74-106) 07/27/19 02:45 Vancomycin Trough 23.9 ug/mL (5.0-15.0) H 07/27/19 02:45 Random Vancomycin 20.8 ug/mL (0.0-15.0) H 07/27/19 12:02 Microbiology: Microbiology 07/26/19 15:35 Urine, Clean Catch Urine Culture - Preliminary Culture exhibits no growth. 07/25/19 11:33 Blood Culture (Wb) - Anticubital Right Blood Culture - Final Staphylococcus aureus 07/25/19 10:47 Blood Culture (Wb) - Left Forearm Bacteria Detection (PCR) - Final Meth. resistant Staph. aureus 07/25/19 10:47 Blood Culture (Wb) - Left Forearm Blood Culture - Final Meth. resistant Staph. aureus 07/25/19 13:40 Fluid - Ascites Gram Stain - Final 07/25/19 13:40 Fluid - Ascites Body Fluid Culture - Preliminary No growth-Final to follow Weight used for dosin.2 kg Estimated Creatinine Clearance: 69.7ml/min Goal Trough: 15-20 mcg/mL Pharmacy Plan for Drug Dosing: The vancomycin random level taken this afternoon at 12pm resulted in a level of 20.8 mg/L. This had come down from 23.8 earlier this morning at 02:45. The last dose the patient received was yesterday at 15:21 before it was held due to the trough of 23.9. Since the level is still above 20, we will wait another 8 hours to let the level drop into the goal range of 15-20 and then restart dosing tonight at 20:00 with 1750mg IV q24h. Will order a trough level before the 3rd dose. The patient's CrCl of 69.7ml/min was calculated using and adjusted body weight of 94.5kg. Pharmacy Service will continue to monitor and adjust dosing as required. Follow-Up Labs: Trough Vancomycin Labs to be done on [date and time ordered]: 07/29/19 19:30
[2019-07-27] MEDS: 0.9% Saline Lock 10 ML Syringe IV ×2 (16:02→22:18)
--- NOTE | 2019-07-27 18:56 | NURSING ---
Patient became upset when RN attempted to obtain vitals. Began cursing at nurse. 1:1 provided. Vitals not obtained per patient request.
[2019-07-28] VITALS (14 sets, daily range): BP systolic 100–114; BP diastolic 46–78; PULSE 68–78; RESP 14–20; TEMP 36.4–37; O2SAT 95–100; BMI 37.8
[2019-07-28 05:20] LABS: Hematocrit 23.4 % (40-54); Hemoglobin 7.9 g/dL (13.0-16.5); Mean Corp Hgb Conc 33.8 g/dL (32-36); Mean Corpuscular Hgb 32.8 pg (27.0-32.0); Mean Corpuscular Volume 97.1 fL (80-94); Mean Platelet Vol. 9.6 fl (6.2-12.0); POSITIVE COUNT YES; POSITIVE MORPHOLOGY YES; Platelet Count 108 K/mm3 (150-450); RBC Distribution Width CV 13.3 % (11.6-14.6); RBC Distribution Width SD 47.7 fl (35.1-43.9); Red Blood Count 2.41 M/mm3 (4.6-6.2)
[2019-07-28] MEDS: Midodrine HCl 5 MG Tablet 10 MG PO ×3 (05:27→21:41)
[2019-07-28 05:30] LABS: Differential Indicated MANUAL DIFF
[2019-07-28 05:47] LABS: ALB/GLOB Ratio 0.4 RATIO (0.9-2.4); AST(SGOT) 78 U/L (15-37); Alanine Aminotransfer ALT/SGPT 44 U/L (16-61); Albumin, Serum 1.6 g/dL (3.2-5.0); Alkaline Phosphatase 218 U/L (45-117); Anion Gap 7 (5-15); BUN 52 mg/dL (7-18); BUN/Creat Ratio 37.4 RATIO (10-20); Calcium,Total 7.5 mg/dL (8.5-10.1); Chloride 101 mmol/L (98-107); Creatinine, Serum 1.39 mg/dL (0.70-1.30); EST Glomerular Filtration Rate 57 mL/min (>60); Est Glom Filt Rate - Afr Amer 68 mL/min (>60); Estimated Creatinine Clearance 64.71 ml/min; Globulin 3.6 g/dL (2.2-4.2); Glucose 123 mg/dL (74-106); Potassium 5.2 mmol/L (3.5-5.1); Protein, Total 5.2 g/dL (6.4-8.2); Sodium Level 127 mmol/L (136-145)
[2019-07-28 06:11] LABS: Eosinophil 4 % (0-5); Lymphocyte 8 % (19-41); Monocyte 6 % (0-10); Neutrophil-Band 5 % (0-5); Neutrophil-Segmented 77 % (47-70); Total Cells Counted 100 (MANUAL DIFF)
[2019-07-28 06:12] LABS: Absolute Neutrophil Count 12.3 X10^3/uL (2.0-7.7); Neutrophil # 12.31 X10^3/uL (2.7-7.7)
--- NOTE | 2019-07-28 07:41 | ECHOTEE_ITS ---
Reason For Study: R/O SBE Medication MEHUL probe 6VT-D (SN [id number]) passed without difficulty. No complications were noted. Cetacaine Topical [place] given X3 orally. Versed 2 mg given slow IVP. Fentanyl 50 mcg given slow IVP. Performed a rapid injection of agitated mix of 9 cc saline and 1cc air to assess for atrial septal defect. Left Ventricle Normal LV size. Left ventricular systolic function is normal. The estimated ejection fraction is 60 %. No regional wall motion abnormalities noted. Right Ventricle Normal RV size. Normal systolic function. Atria Intact atrial septum. Normal left atrium. No thrombus is detected in the left atrial appendage. Normal right atrium. Mitral Valve Normal mitral valve. Trivial eccentric mitral valve insufficiency. Tricuspid Valve Normal tricuspid valve. Aortic Valve Normal aortic valve. Trisinus/trileaflet aortic valve. Pulmonic Valve Normal pulmonic valve. Vessels Normal aortic root. Mild atherosclerosis of the aortic arch. The pulmonary artery is normal size. Pericardium No pericardial effusion. Interpretation Summary This degree of valvular regurgitation is within normal limits. There is no evidence of a mass or vegetation. This does not rule out endocarditis. Normal LV size. Left ventricular systolic function is normal. The estimated ejection fraction is 60 %. Ordering Physician: Ganga Vega Referring Physician: Jayesh Jeffers Performed By: Ana Maria Burris, DELMA
--- NOTE | 2019-07-28 09:11 | PCM.PN.INT ---
Subjective: Patient did well overnight. No acute issues were reported. Patient has been hemodynamically stable on room air. Patient is not reporting any significant pain at this time. General: Alert, Cooperative, No apparent distress, - - Appears older than stated age. HEENT: Atraumatic, PERRLA, EOMI, - - Slight icterus appreciated. Oral: Moist Mucosa Neck: Supple, No Nodes, Trachea Midline, JVD, Right Lungs: No rhonchi, No wheeze, Diminished, Rales, - - Symmetric expansion. Cardiovascular: Regular rate, Regular Rhythm, Normal S1, Normal S2, No murmurs, No rub noted, No Gallop Abdomen: Bowel Sounds Present, Soft, Non Tender, Distended Extremities: No clubbing, No cyanosis, Edema Skin: - - Slight jaundice. Bruising at various stages of healing Musculoskeletal: No Tenderness to Palpation of Joints or Extremities Lymphatic: No Cervical, Supraclavicular, or Inguinal Adenopathy Neurological: Cranial nerves II-XII grossly intact, Neuro grossly intact Psych/Mental Status: Normal Affect, Appropriate Vital Signs Temp Pulse Resp BP Pulse Ox 36.8 C 74 18 101/50 L 95 07/28/19 04:05 07/28/19 07:24 07/28/19 04:05 07/28/19 04:05 07/28/19 04:10 Oxygen Flow Rate (L/min) [7] 6 Oxygen Flow Rate (L/min) [6] 4 Oxygen Flow Rate (L/min) 2 Oxygen Delivery Method [7] Nasal Cannula Oxygen Delivery Method [6] Nasal Cannula Oxygen Delivery Method [5] Nasal Cannula Oxygen Delivery Method [4] Room Air Oxygen Delivery Method [3] Room Air Oxygen Delivery Method [2] Room Air Oxygen Delivery Method [1 ( Room Air Initial Baseline)] Oxygen Delivery Method Room Air Weight: 123.3 kg Body Mass Index (BMI) 37.8 Intake and Output for Last 24 Hours 07/26/19 07/27/19 07/28/19 23:59 23:59 23:59 Intake Total 4380.83 / 4380.83 2004 160 / 160 Output Total 2049 475 / 475 Balance 2330.83 / 2330.83 1530 / 1530 160 / 160 Labs (Last 48 Hours) 07/25/19 07/26/19 07/26/19 13:40 08:20 15:35 WBC RBC Hgb Hct MCV MCH MCHC RDW Std Deviation RDW Coeff of Pravin Plt Count MPV Immature Gran % (Auto) Neut % (Auto) Lymph % (Auto) [place] % (Auto) Eos % (Auto) Baso % (Auto) Absolute Neuts (auto) Absolute Lymphs (auto) Total Counted Neutrophils % (Manual) Band Neutrophils % Lymphocytes % (Manual) Monocytes % (Manual) Eosinophils % (Manual) Nucleated RBC % Differential Comment Diff Path Review Sodium Potassium Chloride Carbon Dioxide Anion Gap BUN Creatinine Estim Creat Clear Calc Est GFR (MDRD) Af Amer Est GFR (MDRD) Non-Af BUN/Creatinine Ratio Glucose Calcium Total Bilirubin AST ALT Alkaline Phosphatase Total Protein Albumin Globulin Albumin/Globulin Ratio Ur Random Sodium 9 Fluid Amylase 9 Vancomycin Trough Random Vancomycin Blood Type O POSITIVE Antibody Screen NEGATIVE 07/27/19 07/27/19 07/27/19 02:45 02:45 02:45 WBC 17.8 H RBC 2.33 L Hgb 7.8 L Hct 21.9 L MCV 94.0 MCH 33.5 H MCHC 35.6 RDW Std Deviation 44.5 H RDW Coeff of Pravin 13.0 Plt Count 104 L MPV 10.1 Immature Gran % (Auto) 4.900 H Neut % (Auto) 76.4 H Lymph % (Auto) 6.1 L [place] % (Auto) 8.9 Eos % (Auto) 3.2 Baso % (Auto) 0.5 Absolute Neuts (auto) 13.6 H Absolute Lymphs (auto) 1.09 Total Counted Neutrophils % (Manual) Band Neutrophils % Lymphocytes % (Manual) Monocytes % (Manual) Eosinophils % (Manual) Nucleated RBC % 0 Differential Comment COMMENT Diff Path Review May foll Sodium 126 L Potassium 4.8 Chloride 99 Carbon Dioxide 19.0 L Anion Gap 8 BUN 54 H Creatinine 1.62 H Estim Creat Clear Calc 55.52 Est GFR (MDRD) Af Amer 57 L Est GFR (MDRD) Non-Af 47 L BUN/Creatinine Ratio 33.3 H Glucose 98 Calcium 7.4 L Total Bilirubin 2.90 H AST 58 H ALT 37 Alkaline Phosphatase 211 H Total Protein 5.2 L Albumin 1.6 L Globulin 3.6 Albumin/Globulin Ratio 0.4 L Ur Random Sodium Fluid Amylase Vancomycin Trough 23.9 H Random Vancomycin Blood Type Antibody Screen 07/27/19 07/28/19 07/28/19 12:02 05:06 05:06 WBC 15.0 H RBC 2.41 L Hgb 7.9 L Hct 23.4 L MCV 97.1 H MCH 32.8 H MCHC 33.8 D RDW Std Deviation 47.7 H RDW Coeff of Pravin 13.3 Plt Count 108 L MPV 9.6 Immature Gran % (Auto) Neut % (Auto) Not Reportable Lymph % (Auto) [place] % (Auto) Eos % (Auto) Baso % (Auto) Absolute Neuts (auto) 12.3 H Absolute Lymphs (auto) 1.20 Total Counted 100 Neutrophils % (Manual) 77 H Band Neutrophils % 5 Lymphocytes % (Manual) 8 L Monocytes % (Manual) 6 Eosinophils % (Manual) 4 Nucleated RBC % Differential Comment Diff Path Review May foll Sodium 127 L Potassium 5.2 H Chloride 101 Carbon Dioxide 19.0 L Anion Gap 7 BUN 52 H Creatinine 1.39 H Estim Creat Clear Calc 64.71 Est GFR (MDRD) Af Amer 68 Est GFR (MDRD) Non-Af 57 L BUN/Creatinine Ratio 37.4 H Glucose 123 H Calcium 7.5 L Total Bilirubin 3.30 H AST 78 H ALT 44 Alkaline Phosphatase 218 H Total Protein 5.2 L Albumin 1.6 L Globulin 3.6 Albumin/Globulin Ratio 0.4 L Ur Random Sodium Fluid Amylase Vancomycin Trough Random Vancomycin 20.8 H Blood Type Antibody Screen Microbiology 07/26/19 08:20 Blood Culture (Wb) - Anticubital Right Blood Culture - Preliminary No growth in 48 hours. 07/26/19 08:20 Blood Culture (Wb) - Left Forearm Blood Culture - Preliminary No growth in 48 hours. 07/26/19 15:35 Urine, Clean Catch Urine Culture - Preliminary Culture exhibits no growth. 07/25/19 11:33 Blood Culture (Wb) - Anticubital Right Blood Culture - Final Staphylococcus aureus 07/25/19 10:47 Blood Culture (Wb) - Left Forearm Bacteria Detection (PCR) - Final Meth. resistant Staph. aureus 07/25/19 10:47 Blood Culture (Wb) - Left Forearm Blood Culture - Final Meth. resistant Staph. aureus 07/25/19 13:40 Fluid - Ascites Gram Stain - Final 07/25/19 13:40 Fluid - Ascites Body Fluid Culture - Preliminary No growth-Final to follow Medical Necessity - Tobacco Use Smoking Status: Current every day smoker Assessment/Plan All Active Problems Anasarca (Acute) Ascites (Acute) Hyponatremia (Acute) PETER (acute kidney injury) (Acute) Leukocytosis (Acute) RECOMMENDATIONS: 1. Continue antimicrobials as ordered. ID following. 2. MEHUL per cardiology 3. Continue to monitor blood counts daily. Transfuse if hemoglobin drops below 7 g/dL. 4. Continue scheduled Midodrine. 5. Encourage incentive spirometer use and mobilize patient as tolerated. 6. If remains hemodynamically stable following MEHUL, will likely sign off from a critical care perspective IMPRESSIONS: 1. Severe sepsis secondary to MRSA bacteremia Although SBP was an initial consideration, the patient's blood cultures obtained on July 24 were subsequently found to be positive for gram-positive cocci in clusters. The patient's hemodynamics have remained stable for 48 hours. He did receive albumin supplementation, given that he underwent a large-volume paracentesis on July 24. Plan to continue empiric antimicrobials. Repeat blood cultures are currently pending. Poor acoustic windows were obtained with surface echocardiogram. Cardiology to evaluate for possible MEHUL. If able to tolerate MEHUL, will likely sign off from a critical care perspective 2. Normocytic anemia The patient has known, chronic anemia. Continue to monitor blood counts daily. Transfuse if hemoglobin drops below 7 g/dL. 3. Acute kidney injury Improving. Clinical concern for hepatorenal syndrome. Nephrology is currently following. Continue to monitor urine output accordingly. No current indication for renal replacement therapy. 4. Hyponatremia Likely secondary to underlying cirrhosis and volume status. 5. Alcoholic cirrhosis The patient has a known history of alcoholic cirrhosis. He requires frequent paracenteses. Patient reports that he has been followed by Dr. Pineda at [facility]. Transplantation has been discussed in the past. However, the patient has yet to be abstinent from alcohol for a period of 6 months. 6. Tobacco dependency Complicates care, management, recovery and prognosis. Smoking cessation counseling provided. Nicotine replacement therapy can be offered to the patient while admitted to the hospital. Inpatient E&M: 97940 Subs Hosp L2
[2019-07-28 12:11] LABS: Pathologist Comment/Body Fluid Reviewed
[2019-07-28 12:14] LABS: Pathologist Review Reviewed
[2019-07-28 12:23] LABS: Pathologist Review Reviewed
[2019-07-28 12:25] LABS: Pathologist Review Reviewed
[2019-07-28 12:27] LABS: Pathologist Review Reviewed
[2019-07-28] MEDS: Thiamine Hydrochloride 100 MG Tablet PO (12:36)
[2019-07-28] MEDS: Lactulose 20 GM/30 ML UDC PO (12:36)
[2019-07-28] MEDS: Folic Acid 1 MG Tablet PO (12:36)
--- NOTE | 2019-07-28 14:20 | PN.RENAL_ITS ---
Patient Problems: Active and Suspected Problems Anasarca (Acute) Ascites (Acute) Hyponatremia (Acute) PETER (acute kidney injury) (Acute) Leukocytosis (Acute) Subjective: no abd pain no n/v states thinks LE edema better - Physical Exam Vitals/I&O's: Vital Signs Temp Pulse Resp BP Pulse Ox 97.7 F L 68 18 110/53 L 97 07/28/19 11:00 07/28/19 12:32 07/28/19 12:32 07/28/19 12:32 07/28/19 12:32 Oxygen Flow Rate (L/min) [7] 6 Oxygen Flow Rate (L/min) [6] 4 Oxygen Flow Rate (L/min) 2 Oxygen Delivery Method [7] Nasal Cannula Oxygen Delivery Method [6] Nasal Cannula Oxygen Delivery Method [5] Nasal Cannula Oxygen Delivery Method [4] Room Air Oxygen Delivery Method [3] Room Air Oxygen Delivery Method [2] Room Air Oxygen Delivery Method [1 ( Room Air Initial Baseline)] Oxygen Delivery Method Room Air Weight: 123.3 kg Body Mass Index (BMI) 37.8 Intake and Output for Last 24 Hours 07/26/19 07/27/19 07/28/19 23:59 23:59 23:59 Intake Total 4380.83 / 4380.83 2004 160 / 160 Output Total 2049 475 / 475 Balance 2330.83 / 2330.83 1530 / 1530 160 / 160 General: Alert, Cooperative HEENT: Atraumatic, Normocephalic Neck: Supple, Trachea Midline Lungs: Clear to auscultation, Normal air movement Cardiovascular: Regular rate, Regular Rhythm, Normal S1, Normal S2 Abdomen: Bowel Sounds Present Extremities: - - edema Microbiology Past 72 Hours 07/25/19 13:40 Fluid - Ascites Gram Stain - Final 07/25/19 13:40 Fluid - Ascites Body Fluid Culture - Preliminary No growth-Final to follow 07/25/19 13:40 Fluid - Ascites Anaerobic Culture - Preliminary No growth in 48 hours. 07/26/19 08:20 Blood Culture (Wb) - Anticubital Right Blood Culture - Preliminary No growth in 48 hours. 07/26/19 08:20 Blood Culture (Wb) - Left Forearm Blood Culture - Preliminary No growth in 48 hours. 07/26/19 15:35 Urine, Clean Catch Urine Culture - Preliminary Culture exhibits no growth. 07/25/19 11:33 Blood Culture (Wb) - Anticubital Right Blood Culture - Final Staphylococcus aureus 07/25/19 10:47 Blood Culture (Wb) - Left Forearm Bacteria Detection (PCR) - Final Meth. resistant Staph. aureus 07/25/19 10:47 Blood Culture (Wb) - Left Forearm Blood Culture - Final Meth. resistant Staph. aureus Laboratory Results 07/25/19 10:47: Diff Path Review Reviewed 07/25/19 13:40: Fl Pathologist Comment Reviewed 07/26/19 04:15: Diff Path Review Reviewed 07/27/19 02:45: Diff Path Review Reviewed 07/28/19 05:06: WBC 15.0 H, RBC 2.41 L, Hgb 7.9 L, Hct 23.4 L, MCV 97.1 H, MCH 32.8 H, MCHC 33.8 D, RDW Std Deviation 47.7 H, RDW Coeff of Pravin 13.3, Plt Count 108 L, MPV 9.6, Neut % (Auto) Not Reportable, Absolute Neuts (auto) 12.3 H, Absolute Lymphs (auto) 1.20, Total Counted 100, Neutrophils % (Manual) 77 H, Band Neutrophils % 5, Lymphocytes % (Manual) 8 L, Monocytes % (Manual) 6, Eosinophils % (Manual) 4, Diff Path Review Reviewed 07/28/19 05:06: Sodium 127 L, Potassium 5.2 H, Chloride 101, Carbon Dioxide 19.0 L, Anion Gap 7, BUN 52 H, Creatinine 1.39 H, Estim Creat Clear Calc 64.71, Est GFR (MDRD) Af Amer 68, Est GFR (MDRD) Non-Af 57 L, BUN/Creatinine Ratio 37.4 H, Glucose 123 H, Calcium 7.5 L, Total Bilirubin 3.30 H, AST 78 H, ALT 44, Alkaline Phosphatase 218 H, Total Protein 5.2 L, Albumin 1.6 L, Globulin 3.6, Albumin/Globulin Ratio 0.4 L Current Medications Dextrose (D50w Syringe) 0 gm IV X1 PRN; Protocol PRN Reason: Hypoglycemia Folic Acid (Folic Acid) 1 mg PO DAILY@0800 [facility] Last Admin: 07/28/19 12:36 Dose: 1 mg Documented by: Glucagon () 1 mg IM .X1 PRN PRN Reason: Hypoglycemia Vancomycin IV Pharmacy to Dose (1 ea/ Sodium Chloride) 500 mls @ 250 mls/hr IV X1 PRN; Protocol PRN Reason: Rx to Dose Sodium Chloride () 250 mls @ 15 mls/hr IV .[id number] PRN PRN Reason: Saline Flush Sodium Chloride () 250 mls @ 15 mls/hr IV .[id number] PRN PRN Reason: Additional IVPB Infusion Vancomycin HCl 1,750 mg/ (Sodium Chloride) 535 mls @ 250 mls/hr IV Q24H [facility] Last Infusion: 07/27/19 22:15 Dose: Infused Documented by: Lactulose (Chronulac, Cephulac) 20 gm PO DAILY [facility] Last Admin: 07/28/19 12:36 Dose: 20 gm Documented by: Midodrine (Proamatine) 10 mg PO TID [facility] Last Admin: 07/28/19 05:27 Dose: 10 mg Documented by: Nutritional Formula (Lactose Free) (Ensure Enlive) 120 ml PO 4X/DAY [facility] Last Admin: 07/28/19 11:42 Dose: Not Given Documented by: Ondansetron HCl (Zofran) 4 mg IV Q8H PRN PRN PRN Reason: NAUSEA/VOMITING Sodium Chloride () 10 - 40 ml IV UD PRN PRN Reason: SALINE FLUSH Last Admin: 07/27/19 22:18 Dose: 20 ml Documented by: Sodium Polystyrene Sulfonate (Kayexalate) 15 gm PO X1 ONE Stop: 07/28/19 14:18 Thiamine HCl (Vitamin B1) 100 mg PO DAILYCM [facility] Last Admin: 07/28/19 12:36 Dose: 100 mg Documented by: Medical Necessity - Tobacco Use Smoking Status: Current every day smoker Assessment/Plan All Active Problems Anasarca (Acute) Ascites (Acute) Hyponatremia (Acute) PETER (acute kidney injury) (Acute) Leukocytosis (Acute) Hyponatremia hypervolemic with cirrhosis PETER prerenal LE edema Cirrhosis MRSA bacteremia Scr 1.3 better SNa 127 better add fluid restriction asx continue midodrine one dose of kayexalate today check bmp in am hold diuretics for now keep MAP>65 avoid nephrotoxins abx per ID pharmacy to dose vanco
--- NOTE | 2019-07-28 14:23 | CASEMGMT ---
SIGIFREDO met with patient, introduced self as well as role at [facility]. He confirmed he did ask about healthcare POA and LW. He does not want to complete them right this minute. SW told him that is fine and to just ask for SW when he decides he would like to do them. SW also asked if he wanted resources for alcohol. He said he isn't really interested, but he needs to somehow prove he hasn't been drinking. SW asked if he would like an AA list. Again he said he is not into that kind of thing, but if that can help prove he hasn't been drinking he will take it. SW did not talk with patient about Palliative Care at this time as he is overwhelmed with everything he is being told right now. SW did leave Healthcare POA and LW papers as well as resources for alcohol treatment for patient. Pam CHAUDHRY MSW
--- NOTE | 2019-07-28 15:46 | CON.PCM_ITS ---
Problem List (1) Bacteremia Status: Acute Reason for Consult: bacteremia Consulted by: Dr. Vega History of Present Illness: The patient is a 53 year old M with etoh cirrhosis complicated by chronic ascites requiring routine paracentesis, presented with hyponatremia, not feeling well. Mild redness at LLQ paracentesis site. No fever, chest pain, cough, SOB, n/v/d. No new joint or back pain. Found to have MRSA (+) bcx. On vanc/cefep gris. Covid neg. MEHUL done today. Feeling better. Full ROS performed and neg except as noted above. - Medical History Past Medical History (Chronic Problems): Chronic Problems HTN (hypertension) (Chronic) Alcoholism (Chronic) Alcoholic cirrhosis (Chronic) Allergies/Adverse Reactions: Allergies lisinopril Allergy (Verified 07/25/19 10:56) PT UNSURE OF REACTION codeine Adverse Reaction (Verified 07/25/19 10:10) Nausea hydrocodone [From Vicodin] Adverse Reaction (Verified 07/25/19 10:10) Itching Home Medications: Ambulatory Orders Medication Instructions Recorded Folic Acid 1 mg PO DAILY@0800 #30 tab 07/04/19 Furosemide 40 mg PO BID #60 tab 07/04/19 Lactulose [Chronulac] 20 gm PO DAILY #1 bottle 07/04/19 Thiamine Hydrochloride [Vitamin B1] 100 mg PO DAILYCM #30 tab 07/04/19 Spironolactone [Aldactone] 75 mg PO DAILY 07/25/19 - Social History Tobacco Use: cigarettes Vital Signs Temp Pulse Resp BP Pulse Ox 97.6 F L 69 18 100/52 L 99 07/28/19 15:30 07/28/19 15:30 07/28/19 15:30 07/28/19 15:30 07/28/19 15:30 Oxygen Flow Rate (L/min) [7] 6 Oxygen Flow Rate (L/min) [6] 4 Oxygen Flow Rate (L/min) 2 Oxygen Delivery Method [7] Nasal Cannula Oxygen Delivery Method [6] Nasal Cannula Oxygen Delivery Method [5] Nasal Cannula Oxygen Delivery Method [4] Room Air Oxygen Delivery Method [3] Room Air Oxygen Delivery Method [2] Room Air Oxygen Delivery Method [1 ( Room Air Initial Baseline)] Oxygen Delivery Method Nasal Cannula Weight: 123.3 kg Body Mass Index (BMI) 37.8 Microbiology Past 72 Hours 07/25/19 13:40 Gram Stain - Final Fluid - Ascites Body Fluid Culture - Preliminary No growth-Final to follow Anaerobic Culture - Preliminary No growth in 48 hours. 07/26/19 08:20 Blood Culture - Preliminary Blood Culture (Wb) - Anticubital Right No growth in 48 hours. 07/26/19 08:20 Blood Culture - Preliminary Blood Culture (Wb) - Left Forearm No growth in 48 hours. 07/26/19 15:35 Urine Culture - Preliminary Urine, Clean Catch Culture exhibits no growth. 07/25/19 11:33 Blood Culture - Final Blood Culture (Wb) - Anticubital Right Staphylococcus aureus 07/25/19 10:47 Bacteria Detection (PCR) - Final Blood Culture (Wb) - Left Forearm Meth. resistant Staph. aureus Blood Culture - Final Meth. resistant Staph. aureus Laboratory Tests Past 24 Hrs 07/25/19 07/25/19 07/26/19 10:47 13:40 04:15 WBC RBC Hgb Hct MCV MCH MCHC RDW Std Deviation RDW Coeff of Pravin Plt Count MPV Neut % (Auto) Absolute Neuts (auto) Absolute Lymphs (auto) Total Counted Neutrophils % (Manual) Band Neutrophils % Lymphocytes % (Manual) Monocytes % (Manual) Eosinophils % (Manual) Diff Path Review Reviewed Reviewed Sodium Potassium Chloride Carbon Dioxide Anion Gap BUN Creatinine Estim Creat Clear Calc Est GFR (MDRD) Af Amer Est GFR (MDRD) Non-Af BUN/Creatinine Ratio Glucose Calcium Total Bilirubin AST ALT Alkaline Phosphatase Total Protein Albumin Globulin Albumin/Globulin Ratio Fl Pathologist Comment Reviewed 07/27/19 07/28/19 07/28/19 02:45 05:06 05:06 WBC 15.0 H RBC 2.41 L Hgb 7.9 L Hct 23.4 L MCV 97.1 H MCH 32.8 H MCHC 33.8 D RDW Std Deviation 47.7 H RDW Coeff of Pravin 13.3 Plt Count 108 L MPV 9.6 Neut % (Auto) Not Reportable Absolute Neuts (auto) 12.3 H Absolute Lymphs (auto) 1.20 Total Counted 100 Neutrophils % (Manual) 77 H Band Neutrophils % 5 Lymphocytes % (Manual) 8 L Monocytes % (Manual) 6 Eosinophils % (Manual) 4 Diff Path Review Reviewed Reviewed Sodium 127 L Potassium 5.2 H Chloride 101 Carbon Dioxide 19.0 L Anion Gap 7 BUN 52 H Creatinine 1.39 H Estim Creat Clear Calc 64.71 Est GFR (MDRD) Af Amer 68 Est GFR (MDRD) Non-Af 57 L BUN/Creatinine Ratio 37.4 H Glucose 123 H Calcium 7.5 L Total Bilirubin 3.30 H AST 78 H ALT 44 Alkaline Phosphatase 218 H Total Protein 5.2 L Albumin 1.6 L Globulin 3.6 Albumin/Globulin Ratio 0.4 L Fl Pathologist Comment - Other Studies Radiology: [] reviewed Other Studies: [] Route of nutrition/ use of supplements: [] Nutritional Intake: [] IV Site: [] Corey Catheter: [] - Physical Exam General: Alert, Oriented x3, Cooperative, No apparent distress HEENT: Atraumatic, PERRLA, EOMI Neck: Supple, No Nodes Lungs: Clear to auscultation, Normal air movement Cardiovascular: Regular rate, Regular Rhythm Abdomen: Non Tender, Distended Extremities: Edema Skin: No rashes, - - small splinter hemorrhage on 3rd finger each hand IV Site: Peripheral, without redness Musculoskeletal: No Tenderness to Palpation of Joints or Extremities, - - no joint pain or back pain to palpation Neurological: Cranial nerves II-XII grossly intact - Assessment/Plan Antibiotics: [] Assessment/Plan: [] Active and Suspected Problems Anasarca (Acute) Ascites (Acute) Hyponatremia (Acute) PETER (acute kidney injury) (Acute) Leukocytosis (Acute) MRSA bacteremia with cirrhosis - no fever, bcx rapidly cleared, no sign of joint/bone infection, MEHUL neg. Cont vanc, will stop cefepime. If bcx remain neg by tomorrow, will be candidate for po linezolid 2 week course at discharge. Will follow, thank you.
[2019-07-28] MEDS: Sodium Polystyrene Sulfonate 15 GM/60 ML UDC PO (16:00)
--- NOTE | 2019-07-28 17:05 | PN_ITS ---
Patient Problems: Active and Suspected Problems Anasarca (Acute) Ascites (Acute) Hyponatremia (Acute) PETER (acute kidney injury) (Acute) Leukocytosis (Acute) Bacteremia (Acute) Subjective: Patient was seen and examined today, he underwent a MEHUL today which did not show evidence of vegetation. I had infectious diseases see the patient today, patient does not complain of any shortness of breath or fever or chills at this time. - Physical Exam Vitals/I&O's: Vital Signs Temp Pulse Resp BP Pulse Ox 97.6 F L 69 18 100/52 L 99 07/28/19 15:30 07/28/19 15:30 07/28/19 15:30 07/28/19 15:30 07/28/19 15:30 Oxygen Flow Rate (L/min) [7] 6 Oxygen Flow Rate (L/min) [6] 4 Oxygen Flow Rate (L/min) 2 Oxygen Delivery Method [7] Nasal Cannula Oxygen Delivery Method [6] Nasal Cannula Oxygen Delivery Method [5] Nasal Cannula Oxygen Delivery Method [4] Room Air Oxygen Delivery Method [3] Room Air Oxygen Delivery Method [2] Room Air Oxygen Delivery Method [1 ( Room Air Initial Baseline)] Oxygen Delivery Method Nasal Cannula Weight: 123.3 kg Body Mass Index (BMI) 37.8 Intake and Output for Last 24 Hours 07/26/19 07/27/19 07/28/19 23:59 23:59 23:59 Intake Total 4380.83 / 4380.83 2004 160 / 160 Output Total 2049 475 / 475 Balance 2330.83 / 2330.83 1530 / 1530 160 / 160 General: Oriented x3, Cooperative, Lethargic - Patient is status post MEHUL at this time and is somnolent HEENT: Atraumatic, PERRLA, EOMI, Normocephalic Oral: Moist Mucosa Neck: Supple, No JVD, No Nuchal Rigidity, Trachea Midline Lungs: Clear to auscultation, Normal air movement, No rhonchi, No wheeze, No rales Cardiovascular: Regular rate, Regular Rhythm, Normal S1, Normal S2, No murmurs Abdomen: Bowel Sounds Present, Soft, Non Tender, Distended Extremities: No clubbing, No cyanosis, No edema, Capillary Refill Less than 3 Seconds Skin: No rashes, No breakdown Neurological: Cranial nerves II-XII grossly intact, Neuro grossly intact, Sensory exam intact to light touch and pain, Coordination normal Psych/Mental Status: Normal Affect, Appropriate, Alert and oriented to time, place, person, mood and affect Microbiology Past 72 Hours 07/25/19 13:40 Fluid - Ascites Gram Stain - Final 07/25/19 13:40 Fluid - Ascites Body Fluid Culture - Preliminary No growth-Final to follow 07/25/19 13:40 Fluid - Ascites Anaerobic Culture - Preliminary No growth in 48 hours. 07/26/19 08:20 Blood Culture (Wb) - Anticubital Right Blood Culture - Preliminary No growth in 48 hours. 07/26/19 08:20 Blood Culture (Wb) - Left Forearm Blood Culture - Preliminary No growth in 48 hours. 07/26/19 15:35 Urine, Clean Catch Urine Culture - Preliminary Culture exhibits no growth. 07/25/19 11:33 Blood Culture (Wb) - Anticubital Right Blood Culture - Final Staphylococcus aureus 07/25/19 10:47 Blood Culture (Wb) - Left Forearm Bacteria Detection (PCR) - Final Meth. resistant Staph. aureus 07/25/19 10:47 Blood Culture (Wb) - Left Forearm Blood Culture - Final Meth. resistant Staph. aureus Laboratory Results 07/25/19 10:47: Diff Path Review Reviewed 07/25/19 13:40: Fl Pathologist Comment Reviewed 07/26/19 04:15: Diff Path Review Reviewed 07/27/19 02:45: Diff Path Review Reviewed 07/28/19 05:06: WBC 15.0 H, RBC 2.41 L, Hgb 7.9 L, Hct 23.4 L, MCV 97.1 H, MCH 32.8 H, MCHC 33.8 D, RDW Std Deviation 47.7 H, RDW Coeff of Pravin 13.3, Plt Count 108 L, MPV 9.6, Neut % (Auto) Not Reportable, Absolute Neuts (auto) 12.3 H, Ab solute Lymphs (auto) 1.20, Total Counted 100, Neutrophils % (Manual) 77 H, Band Neutrophils % 5, Lymphocytes % (Manual) 8 L, Monocytes % (Manual) 6, Eosinophils % (Manual) 4, Diff Path Review Reviewed 07/28/19 05:06: Sodium 127 L, Potassium 5.2 H, Chloride 101, Carbon Dioxide 19.0 L, Anion Gap 7, BUN 52 H, Creatinine 1.39 H, Estim Creat Clear Calc 64.71, Est GFR (MDRD) Af Amer 68, Est GFR (MDRD) Non-Af 57 L, BUN/Creatinine Ratio 37.4 H, Glucose 123 H, Calcium 7.5 L, Total Bilirubin 3.30 H, AST 78 H, ALT 44, Alkaline Phosphatase 218 H, Total Protein 5.2 L, Albumin 1.6 L, Globulin 3.6, Albumin/Globulin Ratio 0.4 L Current Medications Dextrose (D50w Syringe) 0 gm IV X1 PRN; Protocol PRN Reason: Hypoglycemia Folic Acid (Folic Acid) 1 mg PO DAILY@0800 [facility] Last Admin: 07/28/19 12:36 Dose: 1 mg Documented by: Glucagon () 1 mg IM .X1 PRN PRN Reason: Hypoglycemia Vancomycin IV Pharmacy to Dose (1 ea/ Sodium Chloride) 500 mls @ 250 mls/hr IV X1 PRN; Protocol PRN Reason: Rx to Dose Sodium Chloride () 250 mls @ 15 mls/hr IV .[id number] PRN PRN Reason: Saline Flush Sodium Chloride () 250 mls @ 15 mls/hr IV .[id number] PRN PRN Reason: Additional IVPB Infusion Vancomycin HCl 1,750 mg/ (Sodium Chloride) 535 mls @ 250 mls/hr IV Q24H [facility] Last Infusion: 07/27/19 22:15 Dose: Infused Documented by: Lactulose (Chronulac, Cephulac) 20 gm PO DAILY [facility] Last Admin: 07/28/19 12:36 Dose: 20 gm Documented by: Midodrine (Proamatine) 10 mg PO TID [facility] Last Admin: 07/28/19 16:00 Dose: 10 mg Documented by: Nutritional Formula (Lactose Free) (Ensure Enlive) 120 ml PO 4X/DAY [facility] Last Admin: 07/28/19 16:00 Dose: 120 ml Documented by: Ondansetron HCl (Zofran) 4 mg IV Q8H PRN PRN PRN Reason: NAUSEA/VOMITING Sodium Chloride () 10 - 40 ml IV UD PRN PRN Reason: SALINE FLUSH Last Admin: 07/27/19 22:18 Dose: 20 ml Documented by: Thiamine HCl (Vitamin B1) 100 mg PO DAILYCM [facility] Last Admin: 07/28/19 12:36 Dose: 100 mg Documented by: Medical Necessity - Tobacco Use Smoking Status: Current every day smoker Assessment/Plan All Active Problems Anasarca (Acute) Ascites (Acute) Hyponatremia (Acute) PETER (acute kidney injury) (Acute) Leukocytosis (Acute) Bacteremia (Acute) #1 MRSA bacteremia with cirrhosis-infectious diseases saw the patient today, antibiotics will be directed by infectious diseases, patient's MEHUL today was unremarkable, ascitic fluid shows no growth at 48 hours. #2 anasarca secondary to alcoholic cirrhotic liver disease-patient's diuretics have been held at this time due to PETER #3 PETER-possibly secondary to diuretic usage, nephrology is holding patient's diuretics at this time #4 hyponatremia-secondary to alcoholic cirrhosis #5 chronic ascites-patient underwent a paracentesis several days ago, it is unknown whether he will have another paracentesis while he is hospitalized this admission #6 alcoholic liver disease with cirrhosis #7 anemia-etiology unknown Inpatient E&M: [id number] Subs Hosp L2
[2019-07-28] MEDS: 0.9% Saline Lock 10 ML Syringe IV (21:37)
[2019-07-29] VITALS (8 sets, daily range): BP systolic 107–120; BP diastolic 41–58; PULSE 78–90; RESP 16–18; TEMP 36.5–37.1; O2SAT 95–99
[2019-07-29] MEDS: Midodrine HCl 5 MG Tablet 10 MG PO ×2 (05:42→12:52)
[2019-07-29 06:31] LABS: Hemoglobin 8.2 g/dL (13.0-16.5); Mean Corp Hgb Conc 34.2 g/dL (32-36); Mean Corpuscular Hgb 33.3 pg (27.0-32.0); Mean Corpuscular Volume 97.6 fL (80-94); Mean Platelet Vol. 9.3 fl (6.2-12.0); POSITIVE COUNT YES; POSITIVE MORPHOLOGY YES; Platelet Count 110 K/mm3 (150-450); RBC Distribution Width CV 13.5 % (11.6-14.6); RBC Distribution Width SD 48.3 fl (35.1-43.9); Red Blood Count 2.46 M/mm3 (4.6-6.2); White Blood Count 14.9 K/mm3 (4.4-11.0)
[2019-07-29 06:32] LABS: Differential Indicated MANUAL DIFF
[2019-07-29 06:51] LABS: Anion Gap 7 (5-15); BUN 48 mg/dL (7-18); Calcium,Total 7.5 mg/dL (8.5-10.1); Chloride 103 mmol/L (98-107); Creatinine, Serum 1.37 mg/dL (0.70-1.30); EST Glomerular Filtration Rate 57 mL/min (>60); Eosinophil 4 % (0-5); Est Glom Filt Rate - Afr Amer 70 mL/min (>60); Estimated Creatinine Clearance 65.65 ml/min; Glucose 103 mg/dL (74-106); Lymphocyte 10 % (19-41); Metamyelocyte 7 % (0-1); Monocyte 1 % (0-10); Myelocyte 2 (0-0); Neutrophil-Band 17 % (0-5); Neutrophil-Segmented 59 % (47-70); Potassium 5.1 mmol/L (3.5-5.1); Sodium Level 130 mmol/L (136-145); Total Cells Counted 100 (MANUAL DIFF)
[2019-07-29 07:03] LABS: Absolute Lymphocyte Count 1.49 X10^3/uL (0.83-4.51); Absolute Neutrophil Count 11.3 X10^3/uL (2.0-7.7); Lymphocyte # 1.49 X10^3/ul (4.0); Neutrophil # 11.32 X10^3/uL (2.7-7.7)
[2019-07-29 07:05] LABS: Platelet Estimate SLT DEC (ADEQ)
[2019-07-29 07:06] LABS: Anisocytosis 1+; Crenated RBC 1+
[2019-07-29] MEDS: Thiamine Hydrochloride 100 MG Tablet PO (07:33)
[2019-07-29] MEDS: Folic Acid 1 MG Tablet PO (07:33)
[2019-07-29] MEDS: Lactulose 20 GM/30 ML UDC PO (07:33)
--- NOTE | 2019-07-29 07:48 | US_ITS ---
PROCEDURE: Ultrasound guided paracentesis. DATE OF EXAMINATION: July 29, 2019.. INDICATION: Male, 53 years old. Ascites. PHYSICIAN: Demar Chamberlain M.D. TECHNIQUE: The risks, benefits, and alternatives to the procedure were explained to the patient. The specific risks of bleeding, infection, and damage to bowel were detailed and accepted. Witnessed informed consent was obtained. The abdomen was ultrasonographically surveyed. An appropriate pocket of fluid was identified at the right lower quadrant. The skin were cleaned and prepped in the usual sterile fashion. Using ultrasound guidance, the peritoneal cavity was accessed with a 5-Greenlandic paracentesis needle/catheter system. The trocar was removed. A total of 10,000 ml of russel-colored fluid were removed from the peritoneal cavity. The catheter was removed and a sterile dressing was applied. The procedure was well tolerated. US/Paracentesis with US IMPRESSION: Ultrasound guided paracentesis. Electronically Signed: Demar Chamberlain, at 11:07 EDT , Service support ,
[2019-07-29 09:05] LABS: International Normalized Ratio 1.9; Prothrombin Time (Protime)PT. 21.5 SECONDS (11.7-14.9)
[2019-07-29 11:26] LABS: Pathologist Review Reviewed
[2019-07-29] MEDS: Albumin Human 25% (100 mL) 25 GM/100 ML BAG IV ×3 (11:37→14:31)
--- NOTE | 2019-07-29 12:11 | PCM.PN.REN ---
Patient Problems: Active and Suspected Problems Anasarca (Acute) Ascites (Acute) Hyponatremia (Acute) PETER (acute kidney injury) (Acute) Leukocytosis (Acute) Bacteremia (Acute) Subjective: no abd pain no cp no sob - Physical Exam Vitals/I&O's: Vital Signs Temp Pulse Resp BP Pulse Ox 97.7 F L 80 18 109/49 L 95 07/29/19 11:05 07/29/19 11:05 07/29/19 11:05 07/29/19 11:05 07/29/19 11:05 Oxygen Flow Rate (L/min) [7] 6 Oxygen Flow Rate (L/min) [6] 4 Oxygen Flow Rate (L/min) 2 Oxygen Delivery Method [7] Nasal Cannula Oxygen Delivery Method [6] Nasal Cannula Oxygen Delivery Method [5] Nasal Cannula Oxygen Delivery Method [4] Room Air Oxygen Delivery Method [3] Room Air Oxygen Delivery Method [2] Room Air Oxygen Delivery Method [1 ( Room Air Initial Baseline)] Oxygen Delivery Method Room Air Weight: 125.9 kg Body Mass Index (BMI) 37.8 Intake and Output for Last 24 Hours 07/27/19 07/28/19 07/29/19 23:59 23:59 23:59 Intake Total 2004 1535 / 1535 240 / 240 Output Total 475 / 475 70248 / 26342 Balance 1530 / 1530 1535 / 1535 -9760 / -9760 General: Alert, Cooperative HEENT: Atraumatic, Normocephalic Oral: Moist Mucosa Neck: Supple, Trachea Midline Lungs: Clear to auscultation, Normal air movement, No rhonchi Cardiovascular: Regular rate, Regular Rhythm Abdomen: Bowel Sounds Present, Soft, Non Tender - edema LE b/l Microbiology Past 72 Hours 07/26/19 15:35 Urine, Clean Catch Urine Culture - Final Culture exhibits no growth. 07/25/19 13:40 Fluid - Ascites Gram Stain - Final 07/25/19 13:40 Fluid - Ascites Body Fluid Culture - Preliminary No growth-Final to follow 07/25/19 13:40 Fluid - Ascites Anaerobic Culture - Preliminary No growth in 48 hours. 07/26/19 08:20 Blood Culture (Wb) - Anticubital Right Blood Culture - Preliminary No growth in 48 hours. 07/26/19 08:20 Blood Culture (Wb) - Left Forearm Blood Culture - Preliminary No growth in 48 hours. 07/25/19 11:33 Blood Culture (Wb) - Anticubital Right Blood Culture - Final Staphylococcus aureus 07/25/19 10:47 Blood Culture (Wb) - Left Forearm Bacteria Detection (PCR) - Final Meth. resistant Staph. aureus 07/25/19 10:47 Blood Culture (Wb) - Left Forearm Blood Culture - Final Meth. resistant Staph. aureus Laboratory Results 07/25/19 10:47: Diff Path Review Reviewed 07/25/19 13:40: Fl Pathologist Comment Reviewed 07/25/19 13:40: Miscellaneous Cytology SEE PATHOLOGY REPORT 07/26/19 04:15: Diff Path Review Reviewed 07/27/19 02:45: Diff Path Review Reviewed 07/28/19 05:06: Diff Path Review Reviewed 07/29/19 06:00: Sodium 130 L, Potassium 5.1, Chloride 103, Carbon Dioxide 20.0 L, Anion Gap 7, BUN 48 H, Creatinine 1.37 H, Estim Creat Clear Calc 65.65, Est GFR (MDRD) Af Amer 70, Est GFR (MDRD) Non-Af 57 L, BUN/Creatinine Ratio 35.0 H, Glucose 103, Calcium 7.5 L 07/29/19 06:00: WBC 14.9 H, RBC 2.46 L, Hgb 8.2 L, Hct 24.0 L, MCV 97.6 H, MCH 33.3 H, MCHC 34.2, RDW Std Deviation 48.3 H, RDW Coeff of Pravin 13.5, Plt Count 110 L, MPV 9.3, Neut % (Auto) Not Reportable, Absolute Neuts (auto) 11.3 H, Absolute Lymphs (auto) 1.49, Total Counted 100, Neutrophils % (Manual) 59, Band Neutrophils % 17 H, Lymphocytes % (Manual) 10 L, Monocytes % (Manual) 1, Eosinophils % (Manual) 4, Metamyelocytes % 7 H, Myelocytes % 2 H, Diff Path Review Reviewed, Platelet Estimate SLT DEC, Anisocytosis 1+, Crenated Cell 1+ 07/29/19 06:00: PT 21.5 H, INR 1.9, APTT 50.0 H Current Medications Dextrose (D50w Syringe) 0 gm IV X1 PRN; Protocol PRN Reason: Hypoglycemia Folic Acid (Folic Acid) 1 mg PO DAILY@0800 [facility] Last Admin: 07/29/19 07:33 Dose: 1 mg Documented by: Glucagon () 1 mg IM .X1 PRN PRN Reason: Hypoglycemia Vancomycin IV Pharmacy to Dose (1 ea/ Sodium Chloride) 500 mls @ 250 mls/hr IV X1 PRN; Protocol PRN Reason: Rx to Dose Sodium Chloride () 250 mls @ 15 mls/hr IV .[id number] PRN PRN Reason: Saline Flush Sodium Chloride () 250 mls @ 15 mls/hr IV .[id number] PRN PRN Reason: Additional IVPB Infusion Vancomycin HCl 1,750 mg/ (Sodium Chloride) 535 mls @ 250 mls/hr IV Q24H [facility] Last Infusion: 07/28/19 23:50 Dose: Infused Documented by: Albumin Human () 25 gm in 100 mls @ 60 mls/hr IV Q2H [facility] Stop: 07/29/19 17:09 Last Admin: 07/29/19 11:37 Dose: 60 mls/hr Documented by: Lactulose (Chronulac, Cephulac) 20 gm PO DAILY [facility] Last Admin: 07/29/19 07:33 Dose: 20 gm Documented by: Midodrine (Proamatine) 10 mg PO TID [facility] Last Admin: 07/29/19 05:42 Dose: 10 mg Documented by: Nutritional Formula (Lactose Free) (Ensure Enlive) 120 ml PO 4X/DAY [facility] Last Admin: 07/29/19 10:39 Dose: Not Given Documented by: Ondansetron HCl (Zofran) 4 mg IV Q8H PRN PRN PRN Reason: NAUSEA/VOMITING Sodium Chloride () 10 - 40 ml IV UD PRN PRN Reason: SALINE FLUSH Last Admin: 07/28/19 21:37 Dose: 10 ml Documented by: Thiamine HCl (Vitamin B1) 100 mg PO DAILYCM [facility] Last Admin: 07/29/19 07:33 Dose: 100 mg Documented by: Medical Necessity - Tobacco Use Smoking Status: Current every day smoker Assessment/Plan All Active Problems Anasarca (Acute) Ascites (Acute) Hyponatremia (Acute) PETER (acute kidney injury) (Acute) Leukocytosis (Acute) Bacteremia (Acute) Hyponatremia hypervolemic with cirrhosis PETER prerenal LE edema Cirrhosis MRSA bacteremia Scr 1.3 stable SNa 130 better continue mild fluid restriction continue midodrine one more dose of kayexalate today hold diuretics for now keep MAP>65 avoid nephrotoxins abx per ID pharmacy to dose vanco awaiting bcx result tomorrow
--- NOTE | 2019-07-29 14:56 | DCINST_ITS ---
- Discharge Diagnoses Current Active Problems: Current Active and Chronic Problems HTN (hypertension) (Chronic) Alcoholic cirrhosis (Chronic) Anasarca (Acute) Ascites (Acute) Hyponatremia (Acute) PETER (acute kidney injury) (Acute) Leukocytosis (Acute) Bacteremia (Acute) You will use the following diet at home:: Regular - NO ADDED SALT, Other - LIMIT FLUIDS TO 1500 ML (50 OUNCES) PER DAY Your food should be the consistency of: Regular Your liquids should be the consistency of: Regular/Thin Discharge Activity: Return to Normal Activity Weight Bearing Status: Full weight bearing Allergies/Adverse Reactions: Allergies lisinopril Allergy (Verified 07/25/19 10:56) PT UNSURE OF REACTION codeine Adverse Reaction (Verified 07/25/19 10:10) Nausea hydrocodone [From Vicodin] Adverse Reaction (Verified 07/25/19 10:10) Itching Medications to take at Discharge Folic Acid 1 mg PO DAILY@0800 #30 tab 07/04/19 Lactulose [Chronulac] 20 gm PO DAILY #1 bottle 07/04/19 Thiamine Hydrochloride [Vitamin B1] 100 mg PO DAILYCM #30 tab 07/04/19 Furosemide [Lasix] 20 mg PO UD #90 tab 07/29/19 Linezolid 600 mg PO BID #20 tab 07/29/19 Midodrine HCl 10 mg PO TID #90 tab 07/29/19 The following prescriptions were given: Furosemide [Lasix] 20 mg PO UD #90 tab Transmission Status: Pending to [facility] [id number] Linezolid 600 mg PO BID #20 tab Transmission Status: [facility] Midodrine HCl 10 mg PO TID #90 tab Transmission Status: Pending to [address] Primary Care Physician: Jayesh Jeffers MD [Primary Care Provider] - Please follow up with your Primary Care Physician in: SUNDAY- GET A BMP (LAB) DONE, OFFICE VISIT NEXT WEEK Test Results: Test results from this visit will be discussed in further detail at your follow- up appointment, if applicable. Please Follow Up With: Arturo Harden MD When: SCHEDULED
--- NOTE | 2019-07-29 15:15 | CASEMGMT ---
Pt to be sent home on Linezolid(Zyvox) at discharge and med e-scribed previously to [facility]. Per tech at [facility], pt does not have Rx coverage with his insurance and they have just been using a discount card for him previously. She states that the Linezolid will be about $48 at this time. This RN CM to room to update pt and provide Linezolid discount card to pt at this time. Pt states he was not aware he didn't have Rx coverage previously and gets agitated with this RN CM. Advised pt about the discount card that [facility] had been using and advised him to call his company/insurance to check on benefits, voices understanding. Pt voices no further questions/concerns/needs at this time. Pt declines need for HHC at this time. Per Dr. Vega, pt has not seen a PCP in over two years but according to pt's record, Dr. Jeffers has been ordering his twice weekly paracentesis. Call to Dr. Aury Lee's CM, and she states that pt did a phone-hospital f/u appt with Dr. Jeffers in May. Per records from , pt had also been set up to see a veterans' counselor at in May but pt states he never followed up with them and is now waiting to see Dr Harden in the next month or two. Pt is jaundiced with distended abd s/p paracentesis this am where they removed 10liters of fluid and stated there was more fluid to remove but did not want to take more than that at that time. SStaten LAKESHIA LOFTON
--- NOTE | 2019-07-29 20:08 | DS.PCM_ITS ---
Discharge Date and Diagnosis Date of Admission: 07/25/19 Date of Discharge: 07/29/19 - Primary Discharge Diagnosis Acute Problems: #1 Severe sepsis secondary to MRSA-etiology unclear #2 anasarca secondary to alcoholic cirrhotic liver disease- #3 PETER-possibly secondary to diuretic usage #4 hyponatremia-secondary to alcoholic cirrhosis #5 chronic ascites-secondary to chronic alcoholic liver disease with cirrhosis #6 alcoholic liver disease with cirrhosis #7 anemia-etiology unknown - Secondary Discharge Diagnosis Chronic Problems: Chronic Problems HTN (hypertension) (Chronic) Alcoholism (Chronic) Alcoholic cirrhosis (Chronic) Hospital Course and Treatment Operations: None Procedures: Paracentesis, Transesophageal Echo Summary of Care Provided: The patient is a 53 year old M seen in the emergency room at [facility] after having outpatient labs which were abnormal and instructed to go to the ER at [facility] for evaluation. Patient has chronic cirrhotic alcoholic liver disease and gets a paracentesis performed twice weekly, labs done as an outpatient showed a sodium which was low at 116, potassium was 5.2, creatinine was 1.74, labs obtained in the emergency room showed an elevated white blood cell count at 32,000, sodium was 119, lactic acid was elevated at 2.1, patient's liver enzymes were elevated with a bilirubin of 3.9. Patient was admitted to PCU, he was started on IV antibiotics, blood cultures which were drawn resulted positive for MRSA, patient underwent a MEHUL due to the fact that a transthoracic echo window was not obtainable, this MEHUL did not show any evidence of vegetation. Patient underwent thoracentesis during his hospitalization with removal before he was discharged of 10,000 cc. Patient was seen in consultation by nephrology who recommended avoiding diuretics during his hospitalization, patient's creatinine gradually improved. Patient admitted to this examiner that he was somewhat noncompliant with his medications, he denied any recent drinking, I found out patient had been admitted to [facility] in May 2019 for acute alcoholic hepatitis, he was diagnosed at that time as having cirrhosis of the liver. Patient has not been following up with his family physician in the office-he did talk to his family physician by phone however and was readmitted in June 2019 with ascites, at that time it appears he was set up for routine paracentesis and referral was made to a medical secretary. Patient told me today that when he was seen in [facility] at [facility], he saw a medical secretary by the name of Dr. Pineda, he was instructed to follow-up with him but he did not follow through with this. On 07/29/2019, patient was seen and examined: On examination he appeared unwell and older than his stated age. Vital signs as documented. Skin warm and dry and without overt rashes. Neck without JVD, neck was supple, trachea midline, thyroid was normal. Lungs clear bilaterally, normal air movement was noted. Heart exam notable for regular rhythm, normal sounds and absence of murmurs, rubs or gallops. Abdomen unremarkable and without evidence of organomegaly, masses, or abdominal aortic enlargement. Abdomen was distended bowel sounds are present. Extremities nonedematous, no cyanosis was noted, no clubbing was noted. Neuro: Cranial nerves II through XII are grossly intact, no focal motor deficits were noted, sensation to light touch and pinprick intact, motor exam 5/5 throughout. Psych: Patient is alert and oriented x3, he does not appear anxious or depressed, he does not appear agitated. Long discussion with the patient concerning whether he wanted to see palliative care but the patient decided he did not want to go that route instead he wanted to follow-up with a medical secretary, he said he had an appointment with Dr. Harden later on in July. Patient's prognosis is very poor, I did contact the patient's PCPs office and talked with the covering physician and expressed the need for the patient to be scheduled for follow-up appointment to recheck his outpatient labs. - Physical Exam Vitals/I&O's: Vital Signs Temp Pulse Resp BP Pulse Ox 97.9 F 80 18 113/41 L 96 07/29/19 15:19 07/29/19 15:19 07/29/19 15:19 07/29/19 15:19 07/29/19 15:19 Oxygen Flow Rate (L/min) [7] 6 Oxygen Flow Rate (L/min) [6] 4 Oxygen Flow Rate (L/min) 2 Oxygen Delivery Method [7] Nasal Cannula Oxygen Delivery Method [6] Nasal Cannula Oxygen Delivery Method [5] Nasal Cannula Oxygen Delivery Method [4] Room Air Oxygen Delivery Method [3] Room Air Oxygen Delivery Method [2] Room Air Oxygen Delivery Method [1 ( Room Air Initial Baseline)] Oxygen Delivery Method Room Air Weight: 125.9 kg Body Mass Index (BMI) 37.8 Intake and Output for Last 24 Hours 07/27/19 07/28/19 07/29/19 23:59 23:59 23:59 Intake Total 2004 1535 / 1535 714 / 714 Output Total 475 / 475 93061 / 60179 Balance 1530 / 1530 1535 / 1535 -9686 / -9686 Microbiology Past 72 Hours 07/26/19 15:35 Urine, Clean Catch Urine Culture - Final Culture exhibits no growth. 07/25/19 13:40 Fluid - Ascites Gram Stain - Final 07/25/19 13:40 Fluid - Ascites Body Fluid Culture - Preliminary No growth-Final to follow 07/25/19 13:40 Fluid - Ascites Anaerobic Culture - Preliminary No growth in 48 hours. 07/26/19 08:20 Blood Culture (Wb) - Anticubital Right Blood Culture - Preliminary No growth in 48 hours. 07/26/19 08:20 Blood Culture (Wb) - Left Forearm Blood Culture - Preliminary No growth in 48 hours. 07/25/19 11:33 Blood Culture (Wb) - Anticubital Right Blood Culture - Final Staphylococcus aureus 07/25/19 10:47 Blood Culture (Wb) - Left Forearm Bacteria Detection (PCR) - Final Meth. resistant Staph. aureus 07/25/19 10:47 Blood Culture (Wb) - Left Forearm Blood Culture - Final Meth. resistant Staph. aureus Laboratory Results 07/25/19 13:40: Miscellaneous Cytology SEE PATHOLOGY REPORT 07/29/19 06:00: Sodium 130 L, Potassium 5.1, Chloride 103, Carbon Dioxide 20.0 L , Anion Gap 7, BUN 48 H, Creatinine 1.37 H, Estim Creat Clear Calc 65.65, Est GFR (MDRD) Af Amer 70, Est GFR (MDRD) Non-Af 57 L, BUN/Creatinine Ratio 35.0 H, Glucose 103, Calcium 7.5 L 07/29/19 06:00: WBC 14.9 H, RBC 2.46 L, Hgb 8.2 L, Hct 24.0 L, MCV 97.6 H, MCH 33.3 H, MCHC 34.2, RDW Std Deviation 48.3 H, RDW Coeff of Pravin 13.5, Plt Count 110 L, MPV 9.3, Neut % (Auto) Not Reportable, Absolute Neuts (auto) 11.3 H, Absolute Lymphs (auto) 1.49, Total Counted 100, Neutrophils % (Manual) 59, Band Neutrophils % 17 H, Lymphocytes % (Manual) 10 L, Monocytes % (Manual) 1, Eosinophils % (Manual) 4, Metamyelocytes % 7 H, Myelocytes % 2 H, Diff Path Review Reviewed, Platelet Estimate SLT DEC, Anisocytosis 1+, Crenated Cell 1+ 07/29/19 06:00: PT 21.5 H, INR 1.9, APTT 50.0 H Discharge Activity: Return to Normal Activity Weight Bearing Status: Full weight bearing Home Medications: Medications to take at Discharge Folic Acid 1 mg PO DAILY@0800 #30 tab 07/04/19 Lactulose [Chronulac] 20 gm PO DAILY #1 bottle 07/04/19 Thiamine Hydrochloride [Vitamin B1] 100 mg PO DAILYCM #30 tab 07/04/19 Furosemide [Lasix] 20 mg PO UD #90 tab 07/29/19 Linezolid 600 mg PO BID #20 tab 07/29/19 Midodrine HCl 10 mg PO TID #90 tab 07/29/19 Following Prescrptions Were Given to Patient: Furosemide [Lasix] 20 mg PO UD #90 tab Transmission Status: Received by SWET[id number] [place] [address] Linezolid 600 mg PO BID #20 tab Transmission Status: Received by [id number] Midodrine HCl 10 mg PO TID #90 tab Transmission Status: Received by JESUS GIANNA[address] Primary Care Physician: Jayesh Jeffers MD [Primary Care Provider] - Please follow up with your Primary Care Physician in: SUNDAY- GET A BMP (LAB) DONE, OFFICE VISIT NEXT WEEK Please Follow Up With: Arturo Harden MD When: SCHEDULED Please Follow Up With: Jayesh Jeffers MD When: SUNDAY- GET A BMP (LAB) DONE, OFFICE VISIT NEXT WEEK Disposition: Home Minutes spent on discharge:: 31 Patient Condition:: Stable Medical Necessity - Tobacco Use Smoking Status: Current every day smoker Meaningful Use Info Meaningful Use Diagnoses (Choose all that apply): None applicable Inpatient E&M: 61439 Disch Hosp
--- NOTE | 2019-07-30 15:17 | CASEMGMT ---
RN CM Discharge F/U Phone Call LACE: 16 Strata: 4 Discharge date: 07/29/2019 Call date: 07/30/2019 Call time: 1518 Attempted to reach pt without success at this time, message left for pt to call this RN CM back if/when able. SStaten RN CM Admission dx: Severe sepsis
--- NOTE | 2019-08-06 10:08 | CASEMGMT ---
Social Work Discharge Follow-up phone call: Discharge Date: 07/29/19 Call Date: 08/06/19 Call Time: 1000 Reason for Follow up: Follow up regarding advanced care planning Summary of call: SW spoke with pt on phone and discussed advanced care planning. Pt is agreeable to meet with SW in out patient setting to review and complete living will and health care POA. Interventions: Appointment set with [facility] for advanced care planning outpatient appointment 08/13/19 at 1400. HOANG Escobar
--- NOTE | 2019-09-03 12:35 | CASEMGMT ---
Social Work Discharge follow up Phone call: Discharge Date: 07/29/19 Call Date: 09/03/19 Callt Time: 1230 Reason for Follow up: advanced care planning Summary of Call: Pt had appointment to meet with SW to review advanced care planning options however, pt was rehospitalized and unable to keep appointment. Phone call on this date to discuss again. Interventions: New appointment made for 09/17/19 at 1300 with this SW for advanced care planning. HOANG Escobar
== END 2019-07-29 16:25 | disposition home or self-care (01) | DRG 872 ==
LOC: ED 10:58 → ICU 13:49 → PCU 07-27 11:01
PROVIDERS: Emergency Medicine; Internal Medicine; Admitting Provider Student in an Organized Health Care Education/Training Program; Emergency Provider Physician Assistant Medical; PCP Family Medicine; Visit Provider Internal Medicine
DX: A41.02 Sepsis due to Methicillin resistant Staphylococcus aureus (principal); E87.1 Hypo-osmolality and hyponatremia; N17.9 Acute kidney failure, unspecified; J98.11 Atelectasis; J90 Pleural effusion, not elsewhere classified; R65.20 Severe sepsis without septic shock; D64.9 Anemia, unspecified; K70.31 Alcoholic cirrhosis of liver with ascites; I10 Essential (primary) hypertension; F10.20 Alcohol dependence, uncomplicated; F17.210 Nicotine dependence, cigarettes, uncomplicated; Z66 Do not resuscitate; Z91.14 Patient's other noncompliance with medication regimen; D69.6 Thrombocytopenia, unspecified; Z51.5 Encounter for palliative care; E86.0 Dehydration; E87.70 Fluid overload, unspecified; E78.5 Hyperlipidemia, unspecified; T50.2X5A Adverse effect of carbonic-anhydrase inhibitors, benzothiadiazides and other diuretics, initial encounter; Y90.9 Presence of alcohol in blood, level not specified
CPT/HCPCS: 36415; 49083; 71045; 71250; 80048; 80053; 80076; 80202; 81001; 82140; 82150; 82945; 83605; 83615; 83690; 83930; 84157; 84300; 84484; 85025; 85610; 85730; 86850; 86900; 86901; 87040; 87070; 87075; 87077; 87086; 87149; 87186; 87205; 87635; 88108; 88305; 88313; 89050; 93005; 93312; 93320; 93325; 97162; 97166; 99284; 99406; G2023; J7030; J7040; J7050; P9047; A4216; U0003

== ENCOUNTER → 2019-08-01 | Outpatient (CLI) | payer OTHER, SELFPAY ==
[2019-07-28 04:59] VITALS: BMI 37.8
[2019-08-01 14:39] VITALS: BP 103/58; BP 88/43; BP 90/46; BP 91/42; BP 95/44; BP 95/47; BP 98/52; PULSE 89; PULSE 91; PULSE 93; PULSE 94; RESP 16; RESP 18; TEMP 36.8; O2SAT 100; O2SAT 99
--- NOTE | 2019-08-01 14:41 | US_ITS ---
PROCEDURE: Ultrasound guided paracentesis. DATE OF EXAMINATION: August 01, 2019.. INDICATION: Male, 53 years old. Ascites. PHYSICIAN: Demar Chamberlain M.D. TECHNIQUE: The risks, benefits, and alternatives to the procedure were explained to the patient. The specific risks of bleeding, infection, and damage to bowel were detailed and accepted. Witnessed informed consent was obtained. The abdomen was ultrasonographically surveyed. An appropriate pocket of fluid was identified at the left lower quadrant. The skin were cleaned and prepped in the usual sterile fashion. Using ultrasound guidance, the peritoneal cavity was accessed with a 5-Serbian paracentesis needle/catheter system. The trocar was removed. A total of 8250 ml of russel-colored fluid were removed from the peritoneal cavity. The catheter was removed and a sterile dressing was applied. The procedure was well tolerated. US/Paracentesis with US IMPRESSION: Ultrasound guided paracentesis. Electronically Signed: Demar Chamberlain, at 15:39 EDT , Service support ,
== END | disposition home or self-care (01) ==
LOC: US 14:31
PROVIDERS: PCP Family Medicine; Referring Provider Family Medicine; Visit Provider Family Medicine
DX: R18.8 Other ascites (principal)
CPT/HCPCS: 49083

== ENCOUNTER → 2019-08-04 14:59 | Outpatient (CLI) | payer OTHER, SELFPAY ==
[2019-07-28 04:59] VITALS: BMI 37.8
--- NOTE | 2019-08-04 15:04 | US_ITS ---
PROCEDURE: Ultrasound guided paracentesis. DATE OF EXAMINATION: August 04, 2019. INDICATION: Male, 53 years old. Ascites. PHYSICIAN: Demar Chamberlain M.D. TECHNIQUE: The risks, benefits, and alternatives to the procedure were explained to the patient. The specific risks of bleeding, infection, and damage to bowel were detailed and accepted. Witnessed informed consent was obtained. The abdomen was ultrasonographically surveyed. An appropriate pocket of fluid was identified at the left lower quadrant. The skin were cleaned and prepped in the usual sterile fashion. Using ultrasound guidance, the peritoneal cavity was accessed with a 5-Sammarinese paracentesis needle/catheter system. The trocar was removed. A total of 7550 ml of russel-colored fluid were removed from the peritoneal cavity. The catheter was removed and a sterile dressing was applied. The procedure was well tolerated. US/Paracentesis with US IMPRESSION: Ultrasound guided paracentesis. Electronically Signed: Demar Chamberlain, at 15:58 EDT , Service support ,
[2019-08-04 15:26] VITALS: BP 100/58; BP 102/42; BP 102/50; BP 110/55; BP 93/51; BP 97/73; PULSE 85; PULSE 86; PULSE 89; PULSE 90; RESP 16; RESP 18; TEMP 36.4; O2SAT 100; O2SAT 99
== END ==
PROVIDERS: PCP Family Medicine; Referring Provider Family Medicine; Visit Provider Family Medicine
DX: R18.8 Other ascites (principal)
CPT/HCPCS: 49083

== ENCOUNTER → 2019-08-07 13:53 | Outpatient (CLI) | payer OTHER, SELFPAY ==
[2019-07-28 04:59] VITALS: BMI 37.8
--- NOTE | 2019-08-07 13:57 | US_ITS ---
PROCEDURE: Ultrasound guided paracentesis. DATE OF EXAMINATION: August 07, 2019. INDICATION: Male, 53 years old. Ascites. PHYSICIAN: Demar Chamberlain M.D. TECHNIQUE: The risks, benefits, and alternatives to the procedure were explained to the patient. The specific risks of bleeding, infection, and damage to bowel were detailed and accepted. Witnessed informed consent was obtained. The abdomen was ultrasonographically surveyed. An appropriate pocket of fluid was identified at the left lower quadrant. The skin were cleaned and prepped in the usual sterile fashion. Using ultrasound guidance, the peritoneal cavity was accessed with a 5-Icelandic paracentesis needle/catheter system. The trocar was removed. A total of 2950 ml of russel-colored fluid were removed from the peritoneal cavity. The catheter was removed and a sterile dressing was applied. The procedure was well tolerated. US/Paracentesis with US IMPRESSION: Ultrasound guided paracentesis. Electronically Signed: Demar Chamberlain, at 15:18 EDT , Service support ,
[2019-08-07 15:00] VITALS: BP 100/44; BP 100/49; BP 103/45; BP 106/55; PULSE 106; PULSE 97; PULSE 98; RESP 18; RESP 20; TEMP 36.7; O2SAT 100; O2SAT 98; O2SAT 99
== END ==
PROVIDERS: PCP Family Medicine; Referring Provider Family Medicine; Visit Provider Family Medicine
DX: R18.8 Other ascites (principal)
CPT/HCPCS: 49083; A4216

== ENCOUNTER 2019-08-07 14:50 | Inpatient (IN) | payer OTHER, SELFPAY ==
[2019-07-28 04:59] VITALS: BMI 37.8
[2019-08-07 14:51] VITALS: BP 105/48; PULSE 92; RESP 17; TEMP 36.7; O2SAT 99; BMI 33.0
--- NOTE | 2019-08-07 15:03 | EKG12_ITS ---
Test Reason : DYSRHYTHMIA Blood Pressure : / mmHG Vent. Rate : 093 BPM Atrial Rate : 093 BPM P-R Int : 170 ms QRS Dur : 092 ms QT Int : 360 ms P-R-T Axes : 078 068 059 degrees QTc Int : 447 ms Normal sinus rhythm Nonspecific T wave abnormality Abnormal ECG Confirmed by BHANU MURRY, DANK ([id number]), scientific publications editor AZIZA MCCLELLAN ([id number]) on 08/12/2019 10:54:38 AM Referred By: KENTRELL Confirmed By:DANK DRUMMOND MD
--- NOTE | 2019-08-07 15:12 | ED.VIS.GEN ---
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 The patient has had 2 outpatient paracentesis this week. He had one this morning. He states that he is been feeling lightheaded especially with standing. Today, he got up from his table after eating breakfast. He states he almost passed out. He states that his physician had called him and told him that his sodium was very low. He does have a history of hyponatremia in the past. The patient was recently admitted for sepsis. He denies any fevers or chills. He denies any nausea or vomiting. He has not received any albumin after his 2 prior high-volume taps. Prior similar symptoms: Yes Recent Illness/Hospitalization: Yes Past Medical History - Allergies and Home Meds Allergies/Adverse Reactions: Allergies lisinopril Allergy (Verified 08/07/19 14:51) PT UNSURE OF REACTION codeine Adverse Reaction (Verified 08/07/19 14:51) Nausea hydrocodone [From Vicodin] Adverse Reaction (Verified 08/07/19 14:51) Itching Primary Care Physician: Jayesh Jeffers MD [Primary Care Provider] - Prior records reviewed: Yes Past Medical History: - - Cirrhosis, alcohol abuse, hyponatremia Surgical History: - - Inguinal and umbilical hernia repair, colonoscopy Smoking Status: Current every day smoker - Family History Maternal Family History: Reports: - - This is Review of Systems General: Denies: Chills, Fever, Sweats Eyes: Denies: Visual changes - bilaterally, Diplopia ENT: Denies: Rhinorrhea, Sore throat Cardiovascular: Denies: Chest pain, Palpitations Respiratory: Denies: Dyspnea, Cough, Dyspnea on exertion Gastrointestinal: Denies: Abdominal pain, Nausea, Vomiting, Diarrhea, Melena, Hematochezia Genitourinary: Denies: Dysuria, Hematuria, Frequency Musculoskeletal: Denies: Back pain, Extremity Pain Skin: Denies: Rash, Wounds Neurological: Denies: Headache, Weakness, Numbness Physical Exam Vital Signs/Narrative: Vital Signs Temp Pulse Resp BP Pulse Ox 08/07/19 14:51 98.1 F 92 17 105/48 L 99 Inital Vital Signs reviewed: Yes General: Well nourished, Well developed, No Acute Distress Head: Normocephalic, Atraumatic Eyes: Perrl, EOMI ENT: Moist mucous membranes, No rhinorrhea Neck: Supple, Nontender Cardiovascular: Regular rate, Regular rhythm, No murmurs Respiratory: No distress, CTA bilaterally, Chest nontender Abdomen: Soft, Nontender, Nondistended, Normal bowel sounds Back: Nontender, Normal Inspection Extremities: Nontender, No edema Skin: Normal color, No rash Neurological: Alert, Oriented x3, Cranial nerves II-XII grossly intact, Normal Strength, Normal Sensation Psychological: Normal affect, Normal Mood Diagnostic/Tx/Re-eval Clinical Impression(s) from Imaging Studies Chest X-Ray 08/07/19 15:35 IMPRESSION: Normal x-ray examination of the chest. Electronically Signed: Yen Kamara MD at 16:16 EDT Tel , Service support , Abnormal Lab Results 08/07/19 08/07/19 08/07/19 15:20 15:20 15:20 WBC 16.3 H RBC 2.51 L Hgb 8.4 L Hct 24.0 L MCV 95.6 H MCH 33.5 H MCHC 35.0 RDW Std Deviation 49.8 H RDW Coeff of Pravin 14.2 Plt Count 120 L MPV 9.3 Immature Gran % (Auto) 1.400 H Neut % (Auto) 84.5 H Lymph % (Auto) 5.4 L Gaston % (Auto) 6.1 Eos % (Auto) 2.0 Baso % (Auto) 0.6 Absolute Neuts (auto) 13.8 H Absolute Lymphs (auto) 0.88 Nucleated RBC % 0 PT 19.4 H INR 1.7 Sodium 124 L Potassium 4.4 Chloride 97 L Carbon Dioxide 19.0 L Anion Gap 8 BUN 52 H Creatinine 1.88 H Estim Creat Clear Calc 47.84 Est GFR (MDRD) Af Amer 48 L Est GFR (MDRD) Non-Af 40 L BUN/Creatinine Ratio 27.7 H Glucose 132 H Lactic Acid Calcium 8.3 L Total Bilirubin 6.20 H AST 70 H ALT 57 Alkaline Phosphatase 234 H Total Protein 6.3 L Albumin 2.1 L Globulin 4.2 Albumin/Globulin Ratio 0.5 L 08/07/19 Unknown WBC RBC Hgb Hct MCV MCH MCHC RDW Std Deviation RDW Coeff of Pravin Plt Count MPV Immature Gran % (Auto) Neut % (Auto) Lymph % (Auto) Gaston % (Auto) Eos % (Auto) Baso % (Auto) Absolute Neuts (auto) Absolute Lymphs (auto) Nucleated RBC % PT INR Sodium Potassium Chloride Carbon Dioxide Anion Gap BUN Creatinine Estim Creat Clear Calc Est GFR (MDRD) Af Amer Est GFR (MDRD) Non-Af BUN/Creatinine Ratio Glucose Lactic Acid 2.0 Calcium Total Bilirubin AST ALT Alkaline Phosphatase Total Protein Albumin Globulin Albumin/Globulin Ratio - Medical Decision Making The patient presents with multiple near syncopal episodes. He has had significant high-volume paracentesis over the past week without protein replacement. He stands, and feels like he is going to pass out. He was also hyponatremic in the office. His abdomen is soft with small amount of fluid. He has no tenderness. He has had no fever. Labs are obtained. The patient is still hyponatremic. His lactic acid is 2, but in light of his liver disease, I do not feel this represents sepsis. My suspicion is the patient likely has significant third spacing of his fluids with his liver disease and high-volume paracentesis. With his near syncope, I do feel that he would benefit from admission for protein replacement. He was discussed with the hospitalist. Impression 1. Near syncope 2. Hyponatremia 3. Cirrhosis secondary to alcoholic liver disease ED Disposition - Plan for ED Patient: Referrals: Jayesh Jeffers MD [Primary Care Provider] -
[2019-08-07 15:30] LABS: Absolute Lymphocyte Count 0.88 X10^3/uL (0.83-4.51); Absolute Neutrophil Count 13.8 X10^3/uL (2.0-7.7); Basophil# 0.09 X10^3/uL; Basophil% 0.6 % (0-1); Eosinophil# 0.32 X10^3/uL; Hemoglobin 8.4 g/dL (13.0-16.5); Lymphocyte # 0.88 X10^3/ul (4.0); Lymphocyte % 5.4 % (19-41); Mean Corpuscular Hgb 33.5 pg (27.0-32.0); Mean Corpuscular Volume 95.6 fL (80-94); Mean Platelet Vol. 9.3 fl (6.2-12.0); Monocyte% 6.1 % (0-10); NRBC Flagged by Analyzer 0 % (0-5); Neutrophil # 13.79 X10^3/uL (2.7-7.7); Neutrophil % 84.5 % (47-70); Platelet Count 120 K/mm3 (150-450); RBC Distribution Width CV 14.2 % (11.6-14.6); RBC Distribution Width SD 49.8 fl (35.1-43.9); Red Blood Count 2.51 M/mm3 (4.6-6.2); White Blood Count 16.3 K/mm3 (4.4-11.0)
--- NOTE | 2019-08-07 15:35 | RAD_ITS ---
STUDY: X-RAY CHEST REASON FOR EXAM: Male, 53 years old. sent in by PCP for abnormal labs, had paracentesis today, fatigue and weakness TECHNIQUE: Single AP portable view of the chest. COMPARISON: 07/25/2019. FINDINGS: The lungs are clear and expanded. There is no demonstrated pleural abnormality. Normal size heart. Normal mediastinum and sanju. Normal visualized pulmonary arteries. Normal visualized aortic arch and descending thoracic aorta. Normal visualized thoracic spine. Normal visualized ribs, clavicles, and shoulders. There is no demonstrated abnormality of the visualized soft tissue structures of the upper abdomen. RAD/Chest 1 View (Portable) IMPRESSION: Normal x-ray examination of the chest. Electronically Signed: Yen Kamara MD at 16:16 EDT Tel , Service support ,
[2019-08-07 15:50] LABS: ALB/GLOB Ratio 0.5 RATIO (0.9-2.4); AST(SGOT) 70 U/L (15-37); Alanine Aminotransfer ALT/SGPT 57 U/L (16-61); Albumin, Serum 2.1 g/dL (3.2-5.0); Alkaline Phosphatase 234 U/L (45-117); Anion Gap 8 (5-15); BUN 52 mg/dL (7-18); BUN/Creat Ratio 27.7 RATIO (10-20); Calcium,Total 8.3 mg/dL (8.5-10.1); Chloride 97 mmol/L (98-107); Creatinine, Serum 1.88 mg/dL (0.70-1.30); EST Glomerular Filtration Rate 40 mL/min (>60); Est Glom Filt Rate - Afr Amer 48 mL/min (>60); Estimated Creatinine Clearance 47.84 ml/min; Globulin 4.2 g/dL (2.2-4.2); Glucose 132 mg/dL (74-106); International Normalized Ratio 1.7; Potassium 4.4 mmol/L (3.5-5.1); Protein, Total 6.3 g/dL (6.4-8.2); Prothrombin Time (Protime)PT. 19.4 SECONDS (11.7-14.9); Sodium Level 124 mmol/L (136-145)
--- NOTE | 2019-08-07 16:07 | HP.PCM_ITS ---
<Tara Pedraza - Last Filed: 08/07/19 17:24> Problem List (1) PETER (acute kidney injury) Status: Acute (2) Anasarca Status: Chronic (3) Ascites Status: Chronic (4) Bacteremia Status: Resolved (5) Hyponatremia Status: Acute (6) Alcoholic cirrhosis Status: Chronic (7) Alcoholism Status: Chronic (8) HTN (hypertension) Status: Chronic History of Present Illness Date of Admission: 08/07/19 Chief Complaint: Presyncope, weakness. The patient is a 53 year old M who presents to the emergency room due to presyncope and weakness. Patient reports he has had lightheadedness upon standing for the past several days and has been very fatigued. Patient states he went to get cereal this morning and felt like he was going to pass out. He sat down and ate and then felt better. He reports he laid down and went to sleep. He had a paracentesis scheduled for 230. He reports the hospital tried to call him to remind him of appointment and he did not answer and a police liaison officer then came to his house to complete a well check. He denies shortness of breath, cough or other symptoms. Patient states they removed less during paracentesis today than they have prior. He is drowsy during assessment and talks very slowly. Patient recently diagnosed with alcoholic cirrhosis May 2019 and is now receiving routine paracentesis. He states he has not drank alcohol since May. His other past medical history includes tobacco dependence, anxiety with panic attacks, hypertension, chronic macrocytic anemia, history of chronic alcohol dependence. Past Medical History Past Medical History (Chronic Problems): Chronic Problems HTN (hypertension) (Chronic) Alcoholism (Chronic) Alcoholic cirrhosis (Chronic) Anasarca (Chronic) Ascites (Chronic) Allergies lisinopril Allergy (Verified 08/07/19 14:51) PT UNSURE OF REACTION codeine Adverse Reaction (Verified 08/07/19 14:51) Nausea hydrocodone [From Vicodin] Adverse Reaction (Verified 08/07/19 14:51) Itching Home Medications: Ambulatory Orders Medication Instructions Recorded Folic Acid 1 mg PO DAILY@0800 #30 tab 07/04/19 Lactulose [Chronulac] 20 gm PO DAILY #1 bottle 07/04/19 Thiamine Hydrochloride [Vitamin B1] 100 mg PO DAILYCM #30 tab 07/04/19 Linezolid 600 mg PO BID #20 tab 07/29/19 Midodrine HCl 10 mg PO TID #90 tab 07/29/19 Furosemide [Lasix] 20 mg PO DAILY@1200 08/07/19 Furosemide [Lasix] 40 mg PO DAILY@0800 08/07/19 Spironolactone [Aldactone] 25 mg PO DAILY 08/07/19 Surgical History: - - Inguinal and umbilical hernia repair, colonoscopy Psychiatric History: Anxiety Lives: Alone Smoking Status: Current every day smoker Tobacco Use: Cigarettes Alcohol: Sober Drugs: None - *Family History Maternal History Items: - - Denies known maternal medical history including cardiac history Paternal History Items: - - Denies known paternal medical history including cardiac history Review of Systems Constitutional: Reports: Weakness, Fatigue. Denies: Chills, Fever, Weight Change HEENT: Denies: Head Aches, Sinus Congestion, Sinus Drainage Cardiovascular: Denies: Chest Pain, Palpitations Respiratory: Denies: Cough, Shortness of breath at rest, Sputum production Gastrointestinal: Denies: Abdominal Pain, Nausea, Vomiting Genitourinary: Denies: Dysuria Musculoskeletal: Denies: Joint Pain, Joint Tenderness Skin: Denies: Rash, Wounds Neurological: Denies: Numbness, Tingling, Focal weakness Psychiatric: Reports: Anxiety. Denies: Depression, Homicidal Ideations, Suicidal Ideations Hematologic/ Lymphatic: Denies: Easy Bruising, Easy Bleeding VTE Information - Inpt Only VTE Present on Admission: No VTE Mechan Device Prophylaxis: None VTE Pharm Prophylaxis ordered?: Yes - Physical Exam Vitals/I&O's: Vital Signs Temp Pulse Resp BP Pulse Ox 98.1 F 92 17 105/48 L 99 08/07/19 14:51 08/07/19 14:51 08/07/19 14:51 08/07/19 14:51 08/07/19 14:51 Oxygen Delivery Method Room Air Weight: 237 lb Body Mass Index (BMI) 33.0 General: Oriented x3, Cooperative, - - Drowsy, jaundice appearing HEENT: Atraumatic, PERRLA, EOMI, Normocephalic Oral: Dry Mucosa Neck: Supple, No JVD, Negative Carotid Bruits Lungs: Clear to auscultation, Normal air movement Cardiovascular: Regular rate, Regular Rhythm, Normal S1, Normal S2, No murmurs Abdomen: Bowel Sounds Present, Soft, Non Tender, Non-Distended, - - Ascites Extremities: No clubbing, No cyanosis, Capillary Refill Less than 3 Seconds, Edema - +3 bilateral lower extremity edema Skin: No rashes, No breakdown Musculoskeletal: No Tenderness to Palpation of Joints or Extremities Neurological: Cranial nerves II-XII grossly intact, Neuro grossly intact Psych/Mental Status: Flat Affect Laboratory Results 08/07/19 15:20: WBC 16.3 H, RBC 2.51 L, Hgb 8.4 L, Hct 24.0 L, MCV 95.6 H, MCH 33.5 H, MCHC 35.0, RDW Std Deviation 49.8 H, RDW Coeff of Pravin 14.2, Plt Count 120 L, MPV 9.3, Immature Gran % (Auto) 1.400 H, Neut % (Auto) 84.5 H, Lymph % (Auto) 5.4 L, Morrow % (Auto) 6.1, Eos % (Auto) 2.0, Baso % (Auto) 0.6, Absolute Neuts (auto) 13.8 H, Absolute Lymphs (auto) 0.88, Nucleated RBC % 0 08/07/19 15:20: PT 19.4 H, INR 1.7 08/07/19 15:20: Sodium 124 L, Potassium 4.4, Chloride 97 L, Carbon Dioxide 19.0 L, Anion Gap 8, BUN 52 H, Creatinine 1.88 H, Estim Creat Clear Calc 47.84, Est GFR (MDRD) Af Amer 48 L, Est GFR (MDRD) Non-Af 40 L, BUN/Creatinine Ratio 27.7 H , Glucose 132 H, Calcium 8.3 L, Total Bilirubin 6.20 H, AST 70 H, ALT 57, Alkaline Phosphatase 234 H, Total Protein 6.3 L, Albumin 2.1 L, Globulin 4.2, Albumin/Globulin Ratio 0.5 L 08/07/19 : Lactic Acid Pending Current Medications Albumin Human () 25 gm in 100 mls @ 60 mls/hr IV X1 ONE Stop: 08/07/19 17:40 Assessment/Plan All Active Problems Hyponatremia (Acute) PETER (acute kidney injury) (Acute) Bacteremia (Resolved) 1. Presyncope, hypotension-suspect secondary to volume depletion. Patient has undergone 3 paracentesis within the last week. Gentle IV fluids. Check orthos tatic vitals. Recent echo at in May as noted below. Continue Midodrine. PT/OT. 2. Alcoholic cirrhosis with ascites- admission 06/10/2019-CT of abdomen and pelvis during that admission revealed moderate ascites, small left pleural effusion and cirrhotic liver. MEHUL at 06/06/2019 demonstrated left ventricular systolic function hyperdynamic with a 70 to 75% estimated ejection fraction. Hitlon bray has upcoming appt to establish with Dr. Gilbert. Continue outpatient follow-up. Continue lactulose, Lasix, Spironolactone regimen with hold parameters. Ammonia level pending. 3. Acute kidney injury, hyponatremia-suspect secondary to intravascular volume depletion. IV fluids as noted above. Trend BMP. 4. Recent MRSA bacteremia-repeat cultures early July negative. Patient is on linezolid. Will repeat blood cultures given presenting symptoms and leukocytosis. 5. Chronic alcohol dependence-reports he quit drinking following recent admission to in May. 6. Tobacco dependence-encouraged cessation. 7. Anxiety with panic attacks-recommend outpatient follow-up. 8. Hypertension-stable, continue spironolactone with hold parameters. 9. Chronic macrocytic anemia-stable, trend CBC. 10. Thrombocytopenia, coagulopathy-secondary to #2. Trend CBC. DVT prophylaxis-Lovenox subcu This patient was seen by CHIDI Hernandez under the supervision of Dr. Fontenot. <Floresita Fontenot - Last Filed: 08/07/19 19:15> History of Present Illness Date of Admission: 08/07/19 The pt was seen and evaluated independently The patient is a 53 year old M with a history of EtOH induced liver cirrhosis, who was just recently admitted here for MRSA bacteremia and sent home with Zyvox which he states he has been taking (end date 08/11/2019), presents today for presyncope and weakness. he states that this started on Sunday. He has had at least 3 paracenteses in the last week or so, 2 of which have been large volume (7 and 8 L). He had a para for 2.9 L today. He states that he feels like he is going to pass out when he stands up from sitting or lying. He is a bit more interactive for me thatn he was for the [employer]. He denies recent EtOH intake and is adamant that he wants to be full code. He is afebrile and BP is 123/66 in semi henriquez position in the ED. Orthostatics were not done in the ED. He has a white count elevation but this appears to chronic. He has a mild but stable anemia and thrombocytopenia. His sodium was 124 but his baseline appears to be around 130 and he has no neurological changes c/w need for acute treatment. His sCr is elevated from baseline (1.3-1.4) to 1.88. His HCO3 was 19 and an ABG was obtained and pH was 7.31 with HCO3 15, PCO2 of 29.5 and pO2 of 91. His lactate was WNL and Ammonia was WNL. Past Medical History Allergies lisinopril Allergy (Verified 08/07/19 14:51) PT UNSURE OF REACTION codeine Adverse Reaction (Verified 08/07/19 14:51) Nausea hydrocodone [From Vicodin] Adverse Reaction (Verified 08/07/19 14:51) Itching Review of Systems Constitutional: Reports: Weakness, Fatigue. Denies: Anorexia, Chills, Fever, Night Sweats, Malaise, Weight Change Eyes: Reports: Vision Change - c/o the visual sensation of a overexposed picture last week and earlier this week but none recently. Denies: Blurred vision, Cataracts, Conjunctivae Inflammation, Double vision, Drainage, Eyelid Inflammation, Pain, Redness HEENT: Reports: Visual Changes - as above. Denies: Difficulty Hearing, Dysphasia, Ear Pain, Head Aches, Nasal bleeding, Nasal Congestion, Post Nasal Drip, Sinus Congestion, Sinus Drainage, Sore Throat Cardiovascular: Reports: Edema - improved, Syncope - presyncope. Denies: Chest Pain, Claudication, Chest Pressure, Chest Tightness, Heaviness, Light Headedness, Orthopnea, Paroxysmal Noc. Dyspnea Respiratory: Denies: Cough, Hemoptysis, Pleuritic Pain, Shortness of Breath, Shortness of breath upon exertion, Sputum production, Wheezing Gastrointestinal: Reports: Diarrhea - 5 x daily with lactulose. Denies: Abdominal Pain, Constipation Genitourinary: Denies: Frequency, Hematuria, Hesitancy, Incontinence, Nocturia, Retention, Urgency Musculoskeletal: Denies: Back Pain, Joint stiffness, Joint swelling, Muscle pain, Neck Pain Skin: Reports: Jaundice. Denies: Dryness, Lesions, Pruritis, Rash, Skin Changes Neurological: Denies: Balance problems, Blurred vision, Double vision, Change in Speech, Slurred speech, Confusion, Difficulty swallowing, Focal weakness, Headaches, Incoordination, Numbness, Tingling, Tremor, Seizures Psychiatric: Reports: Anxiety. Denies: Depression, Homicidal Ideations, S uicidal Ideations Endocrine: Reports: Heat/ Cold Intolerance. Denies: Change in Body Habitus, Polydipsia, Polyuria, Hx of Irradiation, Hx of Thyroiditis Hematologic/ Lymphatic: Reports: Anemia. Denies: Adenopathy, Easy Bruising, Easy Bleeding, Hx of blood clot - Physical Exam Vitals/I&O's: Vital Signs Temp Pulse Resp BP Pulse Ox 97.4 F L 86 16 123/66 H 100 08/07/19 17:58 08/07/19 18:39 08/07/19 17:58 08/07/19 17:58 08/07/19 17:58 Oxygen Delivery Method Room Air Weight: 102.058 kg Body Mass Index (BMI) 31.4 Intake and Output for Last 24 Hours 08/05/19 08/06/19 08/07/19 23:59 23:59 23:59 Intake Total 500 / 500 Balance 500 / 500 General: Alert, Oriented x3, Cooperative, No apparent distress, Well developed, - - Drowsy, jaundice appearing, more interactive for me and shows me pictures on his phone HEENT: Atraumatic, PERRLA, EOMI, Normocephalic, EAC Clear Oral: No Gingival or Mucosal Lesions/ Ulcerations, Dry Mucosa Neck: Supple, No JVD, Negative Carotid Bruits, Negative Hepatojugular Reflux, No Nodes, No Nuchal Rigidity, Trachea Midline, Thyroid Normal Size and Texture Lungs: Clear to auscultation, Normal air movement, No rhonchi, No wheeze, No rales Cardiovascular: Regular rate, Regular Rhythm, Normal S1, Normal S2, No Ectopic Activity, No rub noted, No Gallop Abdomen: Bowel Sounds Present, Soft, Non-Distended, No hernias noted, - - Ascites-mild with no sig fluid wave Extremities: No clubbing, No cyanosis, Edema - 2-3+ bilateral lower extremity edema--> improved from pictures he showed me Skin: No rashes, No breakdown Musculoskeletal: No Tenderness to Palpation of Joints or Extremities, No Muscle Wasting Lymphatic: No Cervical, Supraclavicular, or Inguinal Adenopathy Neurological: Cranial nerves II-XII grossly intact, Deep Tendon Reflexes 2+/4 and Symmetrical, Neuro grossly intact, Muscle tone normal, Sensory exam intact to light touch and pain, Coordination normal Psych/Mental Status: Appropriate, Flat Affect Laboratory Results 08/07/19 15:20: WBC 16.3 H, RBC 2.51 L, Hgb 8.4 L, Hct 24.0 L, MCV 95.6 H, MCH 33.5 H, MCHC 35.0, RDW Std Deviation 49.8 H, RDW Coeff of Pravin 14.2, Plt Count 120 L, MPV 9.3, Immature Gran % (Auto) 1.400 H, Neut % (Auto) 84.5 H, Lymph % (Auto) 5.4 L, Morrow % (Auto) 6.1, Eos % (Auto) 2.0, Baso % (Auto) 0.6, Absolute Neuts (auto) 13.8 H, Absolute Lymphs (auto) 0.88, Nucleated RBC % 0 08/07/19 15:20: PT 19.4 H, INR 1.7 08/07/19 15:20: Sodium 124 L, Potassium 4.4, Chloride 97 L, Carbon Dioxide 19.0 L, Anion Gap 8, BUN 52 H, Creatinine 1.88 H, Estim Creat Clear Calc 47.84, Est GFR (MDRD) Af Amer 48 L, Est GFR (MDRD) Non-Af 40 L, BUN/Creatinine Ratio 27.7 H , Glucose 132 H, Calcium 8.3 L, Total Bilirubin 6.20 H, AST 70 H, ALT 57, Alkaline Phosphatase 234 H, Total Protein 6.3 L, Albumin 2.1 L, Globulin 4.2, Albumin/Globulin Ratio 0.5 L 08/07/19 16:55: Ammonia < 10.0 L 08/07/19 17:19: Specimen Type Cancelled, Sample Site Cancelled, O2 % Cancelled, VBG pH Cancelled, VBG pH (Temp Correct) Cancelled, VBG pCO2 (Temp Corrct Cancelled, VBG pO2 Cancelled, VBG O2 Sat (Calc) Cancelled, VBG O2 Content Cancelled, VBG Base Excess Cancelled, POC Mix VBG pCO2 Pt Tmp Cancelled, Respiration Rate Cancelled, O2 Delivery Device Cancelled, Liter Flow Cancelled, Minute Volume Cancelled, Tidal Volume Cancelled, POC PEEP Cancelled, POC Pressure Suppt Cancelled, EPAP Cancelled, IPAP Cancelled, Blood Gas Notified Whom Cancelled, Blood Gas Notified Time Cancelled 08/07/19 17:19: Specimen Type ART, Sample Site L RADIAL, pH 7.31 L, Bicarbonate Actual 15.0 L, POC Total CO2 16, Base Excess -11 L, O2 Saturation 96, ABG pCO2 29.5 L, ABG pO2 91, Harshad Test POS, O2 Delivery Device Room Air, Blood Gas Notified Whom ED MD, Blood Gas Notified Time 1720 08/07/19 : Lactic Acid 2.0 Current Medications Dextrose (D50w Syringe) 0 gm IV X1 PRN; Protocol PRN Reason: Hypoglycemia Enoxaparin Sodium (Lovenox) 40 mg SC DAILY BELLA Folic Acid (Folic Acid) 1 mg PO DAILY@0800 BELLA Glucagon () 1 mg IM .X1 PRN PRN Reason: Hypoglycemia Albumin Human () 25 gm in 100 mls @ 60 mls/hr IV Q2H BELLA Stop: 08/07/19 23:54 Last Admin: 08/07/19 17:16 Dose: 60 mls/hr Documented by: Sodium Chloride () 250 mls @ 15 mls/hr IV .[id number] PRN PRN Reason: Saline Flush Sodium Chloride () 250 mls @ 15 mls/hr IV .[id number] PRN PRN Reason: Additional IVPB Infusion Sodium Bicarbonate 150 meq/ (Dextrose) 1,150 mls @ 50 mls/hr IV .Q23H BELLA Ibuprofen (Motrin) 400 mg PO Q4H PRN PRN PRN Reason: Pain Score 1-10/Temp > 100.7 F Lactulose (Chronulac, Cephulac) 20 gm PO DAILY [facility] Linezolid (Zyvox) 600 mg PO BID BELLA Midodrine (Proamatine) 10 mg PO TID@0800,1200,1700 [facility] Multivitamins (Multivitamin) 1 tablet PO DAILYCM [facility] Nutritional Formula (Lactose Free) (Ensure Enlive) 120 ml PO 4X/DAY BELLA Ondansetron HCl (Zofran) 4 mg IV Q8H PRN PRN PRN Reason: NAUSEA/VOMITING Oxycodone HCl (Oxyir) 5 mg PO Q4H PRN PRN PRN Reason: Pain Score 4-10/10 Sodium Chloride () 10 - 40 ml IV UD PRN PRN Reason: SALINE FLUSH Thiamine HCl (Vitamin B1) 100 mg PO DAILYCM [facility] Assessment/Plan Agree with the above and the 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 History and Physical Presyncope suspect 2/2 intravascular hypovolemia -EKG is unremarkable as is tele in ED -check am orthos -lactate negative -pt has not been taking his midodrine--> restart -had ECHO in 05/2019@ as noted above -hold diuretics -Albumin given by ED give recent large volume paracenteses -IVF Recent MRSA bacteremia -has been taking Zyvox -repeat blood cultures -had cleared cx on 07/27 -was seen by ID and Zyvox until 08/10 -abx continued NAGMA -suspect related to diarrhea with lactulose--> pt states that he is having 5 BM daily now -pH 7.31 and HCO3 is 15 -repeat ABG in am--> should correct quickly -hold lactulose for now--> ammonia WNL PETER -hydration/albumin -suspect a component of hepatorenal syndrome -should be getting albumin for kwabena with volume > 5 L (6-8 cc) -repeat BMP in am -hold diuretics -if not better will need further workup Hyperbilirubinemia -up some as compared with baseline -suspect related to hydration -trend Anemia -no s/o bleeding -is stable when compared to previous -monitor Hyponatremia -not far off baseline -likely related to chronic liver disease -baseline is about 127-130 Code status -Full -overall prognosis is poor Inpatient E&M: 21849 Init Hosp L3
[2019-08-07] MEDS: Albumin Human 25% (100 mL) 25 GM/100 ML BAG IV ×4 (17:16→22:19)
[2019-08-07 17:18] VITALS: BP 122/49; PULSE 86; RESP 18; TEMP 36.4; O2SAT 100
[2019-08-07 17:42] LABS: Allen Test POS; Blood Gas Specimen Type ART; O2 Delivery Device Room Air; SITE L RADIAL
[2019-08-07 17:43] VITALS: BMI 31.4
[2019-08-07 17:43] LABS: Base Excess -11 mmol/L (-2 to +2); PO2 91 mmHG (75-100); SO2 96 % (95-99); Time Given 1720; Total Carbon Dioxide 16 mmol/L; pCO2 29.5 mmHg (35-45); pH 7.31 (7.35-7.45)
[2019-08-07 17:58] VITALS: BP 123/66; PULSE 88; RESP 16; TEMP 36.3; O2SAT 100
[2019-08-07 18:11] LABS: Ammonia < 10.0 umol/L (11-32)
[2019-08-07 18:39] VITALS: PULSE 86
[2019-08-07 18:59] VITALS: BP 119/64; BP 129/43; BP 86/37; PULSE 84; PULSE 86; PULSE 91
[2019-08-07 19:24] LABS: Reflex Lactate? Y
[2019-08-07 20:19] LABS: Lactic Acid 2.1 mmol/L (0.4-1.9)
[2019-08-07 22:00] VITALS: BP 108/47; PULSE 87; PULSE 89; RESP 18; TEMP 36.3; O2SAT 98
[2019-08-07] MEDS: Linezolid 600 MG Tablet PO (22:21)
[2019-08-08] VITALS (18 sets, daily range): BP systolic 81–128; BP diastolic 35–90; PULSE 82–99; RESP 13–18; TEMP 36.4–36.7; O2SAT 96–100
[2019-08-08 01:06] LABS: Lactic Acid 1.9 mmol/L (0.4-1.9)
[2019-08-08 04:57] LABS: Absolute Lymphocyte Count 0.79 X10^3/uL (0.83-4.51); Absolute Neutrophil Count 6.8 X10^3/uL (2.0-7.7); Basophil# 0.03 X10^3/uL; Basophil% 0.4 % (0-1); Eosinophil# 0.29 X10^3/uL; Eosinophils% 3.4 % (0-5); Hematocrit 17.4 % (40-54); Lymphocyte # 0.79 X10^3/ul (4.0); Lymphocyte % 9.2 % (19-41); Mean Corp Hgb Conc 33.3 g/dL (32-36); Mean Corpuscular Hgb 32.8 pg (27.0-32.0); Mean Corpuscular Volume 98.3 fL (80-94); Mean Platelet Vol. 9.2 fl (6.2-12.0); Monocyte# 0.64 X10^3/uL; Monocyte% 7.5 % (0-10); NRBC Flagged by Analyzer 0 % (0-5); Neutrophil # 6.75 X10^3/uL (2.7-7.7); Neutrophil % 78.8 % (47-70); POSITIVE COUNT YES; Platelet Count 68 K/mm3 (150-450); RBC Distribution Width CV 14.4 % (11.6-14.6); RBC Distribution Width SD 52.3 fl (35.1-43.9); Red Blood Count 1.77 M/mm3 (4.6-6.2); White Blood Count 8.6 K/mm3 (4.4-11.0)
[2019-08-08 05:08] LABS: AST(SGOT) 44 U/L (15-37); Alanine Aminotransfer ALT/SGPT 38 U/L (16-61); Albumin, Serum 2.8 g/dL (3.2-5.0); Alkaline Phosphatase 147 U/L (45-117); Anion Gap 9 (5-15); BUN 54 mg/dL (7-18); Chloride 97 mmol/L (98-107); Creatinine, Serum 1.69 mg/dL (0.70-1.30); EST Glomerular Filtration Rate 45 mL/min (>60); Est Glom Filt Rate - Afr Amer 55 mL/min (>60); Estimated Creatinine Clearance 53.22 ml/min; Globulin 2.7 g/dL (2.2-4.2); Glucose 113 mg/dL (74-106); Potassium 4.4 mmol/L (3.5-5.1); Protein, Total 5.5 g/dL (6.4-8.2); Sodium Level 126 mmol/L (136-145)
[2019-08-08 05:47] LABS: Differential Indicated SCAN CRITERIA MET; Hemoglobin 5.8 g/dL (13.0-16.5)
[2019-08-08 05:50] LABS: Base Excess -9 mmol/L (-2 to +2); Bicarbonate 16.6 mmol/L (22-26); PO2 79 mmHG (75-100); SO2 95 % (95-99); Total Carbon Dioxide 17 mmol/L; pCO2 28.7 mmHg (35-45); pH 7.37 (7.35-7.45)
[2019-08-08 05:54] LABS: Allen Test POS; Blood Gas Specimen Type ART; O2 Delivery Device Room Air; SITE R RADIAL; Time Given 539
[2019-08-08 07:15] LABS: Differential Comment SCANNED
[2019-08-08 07:16] LABS: Hypochromasia 2+
[2019-08-08 07:17] LABS: Burr Cells 1+; Platelet Estimate MOD DEC (ADEQ)
[2019-08-08 07:18] LABS: Anisocytosis RARE; Schistocytes RARE
[2019-08-08] MEDS: Midodrine HCl 5 MG Tablet 10 MG PO (08:21)
[2019-08-08] MEDS: Folic Acid 1 MG Tablet PO (08:22)
[2019-08-08] MEDS: Multivitamins,Therapeutic Tablet 1 TABLET PO (08:22)
[2019-08-08] MEDS: Lactulose 20 GM/30 ML UDC PO (08:22)
[2019-08-08] MEDS: Thiamine Hydrochloride 100 MG Tablet PO (08:22)
--- NOTE | 2019-08-08 09:47 | CASEMGMT ---
Tertiary facilities in-network with [facility]: [facility], , [facility], [facility], [facility].
--- NOTE | 2019-08-08 10:01 | NURSING ---
called report to icu
--- NOTE | 2019-08-08 10:25 | CT_ITS ---
STUDY: CT ABDOMEN AND PELVIS WITHOUT CONTRAST REASON FOR EXAM: Male, 53 years old. GI BLEED/ACUTE KIDNEY INJURY/HTN, ANASARCA RADIATION DOSAGE (If Supplied By Facility): CTDIvol = ( 18.13 ) mGy, DLP = ( 983.12 ) mGycm TECHNIQUE: Transaxial images were obtained from the dome of the diaphragm to the symphysis pubis without oral contrast, and without intravenous contrast. Sagittal and coronal images were reconstructed. Individualized dose optimization techniques were used for this CT. COMPARISON: Comparison is made with prior study dated June 05, 2019. FINDINGS: Minimal degree of linear atelectasis at the lung bases. Minimal pericardial thickening. [id number] degree of diffuse ascites. There is a diffuse contour abnormality of the liver consistent with cirrhotic changes. The gallbladder is contracted. Small amount of pericholecystic fluid most likely secondary to ascites. There is mild splenomegaly. Findings suggestive of varices of the splenic vein in the region of the splenic hilum. Normal pancreas. Normal bilateral adrenal glands. Normal right kidney. Normal left kidney. Normal visualized stomach. Normal small intestine. Normal colon. The appendix is visualized and appears normal. There is scattered atherosclerotic calcification of the abdominal aorta, without a demonstrated aneurysm. Normal inferior vena cava. There is borderline retroperitoneal lymphadenopathy with enlarged nodes no greater than 10mm in the short axis diameter. Normal urinary bladder. Evidence of prior right inguinal hernia repair with a mesh. Diffuse subcutaneous edema with a focal skin thickening. There are mild degenerative changes of the visualized lumbar spine. CT/Abdomen/Pelvis without Cont IMPRESSION: Ascites. Findings suggestive of cirrhosis of the liver with mild degree of splenomegaly and possible varices in the region of the splenic hilum. Electronically Signed: Demar Chamberlain, at 11:04 EDT , Service support ,
[2019-08-08 10:36] LABS: Hemoglobin 6.8 g/dL (13.0-16.5)
[2019-08-08 11:40] LABS: Pathologist Review Reviewed
--- NOTE | 2019-08-08 12:21 | CASEMGMT ---
LAKESHIA CM Readmission Note Previous Admission: 07/24-07/29/19 Diagnosis: Sepsis DC Disposition: Home F/U appointment: call to [facility] re: f/u appt on 08/05/2019. Pt did see nurse practioner. Had 2 outpt paracentesis after discharge. Prescriptions: has been taking Zyvox at home. Pt dc'd home after treatment for sepsis secondary to MRSA-etiology unclear. Anasarca-hx of alcoholic cirrhotic liver disease, PETER, Hyponatremia. Current Admission Date: 08/05/2019 Diagnosis: PETER, Anasarca, Ascites Presentation: Pt presented to ER with after episode of presyncope. Was scheduled for paracentesis in afternoon and when staff called to remind pt, he did not answer as he was sleeping. Invasive Physician did well check and pt came to ER as walk in. Found to be hypovolemic, To ICU. DC PLAN: Plan is for patient to transfer to . Dali KEITA RN AC
--- NOTE | 2019-08-08 12:32 | DS.PCM_ITS ---
<Tara Pedraza - Last Filed: 08/08/19 13:02> Discharge Date and Diagnosis Date of Admission: 08/07/19 Date of Discharge: 08/08/19 - Primary Discharge Diagnosis Acute Problems: 1. Presyncope, hypotension 2. Acute GI bleed, chronic normocytic anemia 3. Acute kidney injury, hyponatremia 4. Alcoholic cirrhosis with ascites 5. Recent MRSA bacteremia 6. Chronic alcohol dependence 7. Tobacco dependence 8. Anxiety with panic attacks 9. Hypertension 10. Thrombocytopenia, coagulopathy - Secondary Discharge Diagnosis Chronic Problems: Chronic Problems HTN (hypertension) (Chronic) Alcoholism (Chronic) Alcoholic cirrhosis (Chronic) Anasarca (Chronic) Ascites (Chronic) Hospital Course and Treatment Imaging Results: Diagnostic Data Chest X-Ray 08/07/19 15:35 IMPRESSION: Normal x-ray examination of the chest. Electronically Signed: Yen Kamara MD at 16:16 EDT Tel , Service support , Abdomen/Pelvis CT 08/08/19 10:25 IMPRESSION: Ascites. Findings suggestive of cirrhosis of the liver with mild degree of splenomegaly and possible varices in the region of the splenic hilum. Electronically Signed: Demar Chamberlain at 11:04 EDT , Service support , Operations: None Procedures: None Summary of Care Provided: The patient is a 53 year old M admitted 08/07/2019 due to presyncope and we akness. 1. Presyncope, hypotension-suspect secondary to volume depletion. Patient has undergone 3 paracentesis within the last week. Gentle IV fluids. Orthostatic vitals negative. Recent echo at in May as noted below. Continue Midodrine. PT/OT. 2. Acute GI bleed, chronic normocytic anemia-Baseline hemoglobin 8-9. Repeat hemoglobin this morning 5.8. Concern for variceal bleed/upper GI bleed. [address] of abdomen showed liver cirrhosis with possible varices of the splenic hilum. Patient placed on PPI and octreotide drip. Given possible variceal bleed with no GI availability, patient transferred to for further management and evaluation. Stool for occult blood negative. 3. Acute kidney injury, hyponatremia-suspect secondary to intravascular volume depletion. Improved with IV fluids. Trend BMP. 4. Alcoholic cirrhosis with ascites- admission 06/10/2019-CT of abdomen and pelvis during that admission revealed moderate ascites, small left pleural eff usion and cirrhotic liver. MEHUL at 06/06/2019 demonstrated left ventricular systolic function hyperdynamic with a 70 to 75% estimated ejection fraction. Patient has upcoming appt to establish with Dr. Gilbert. Continue lactulose, Lasix, Spironolactone regimen with hold parameters. 5. Recent MRSA bacteremia-repeat cultures early July negative. Patient is on linezolid. Repeat blood cultures pending. 6. Chronic alcohol dependence-reports he quit drinking following recent admission to in May. 7. Tobacco dependence-encouraged cessation. 8. Anxiety with panic attacks-recommend outpatient follow-up. 9. Hypertension-stable, continue spironolactone with hold parameters. 10. Thrombocytopenia, coagulopathy-secondary to #4. Trend CBC. General: Oriented x3, Cooperative, jaundice appearing HEENT: Atraumatic, PERRLA, EOMI, Normocephalic Oral: Dry Mucosa Neck: Supple, No JVD, Negative Carotid Bruits Lungs: Clear to auscultation, Normal air movement Cardiovascular: Regular rate, Regular Rhythm, Normal S1, Normal S2, No murmurs Abdomen: Bowel Sounds Present, Soft, Non Tender, Non-Distended, - - Ascites Extremities: No clubbing, No cyanosis, Capillary Refill Less than 3 Seconds, Edema - +3 bilateral lower extremity edema Skin: No rashes, No breakdown Musculoskeletal: No Tenderness to Palpation of Joints or Extremities Neurological: Cranial nerves II-XII grossly intact, Neuro grossly intact Psych/Mental Status: Flat Affect Patient seen and examined prior to discharge. Physical assessment as noted above. Patient transferred to for further management and evaluation. This patient was seen by CHIDI Hernandez under the supervision of Dr. Kidd. - Physical Exam Vitals/I&O's: Vital Signs Temp Pulse Resp BP Pulse Ox 97.8 F 88 17 119/55 L 96 08/08/19 12:00 08/08/19 12:00 08/08/19 12:00 08/08/19 12:00 08/08/19 12:00 Oxygen Delivery Method Room Air Weight: 231 lb 3 oz Body Mass Index (BMI) 31.4 Orthostatic Vital Signs Start: 08/07/19 18:59 Freq: q24h Status: Active Protocol: Activity Type Activity Date Activity User E-Sign Co-Sign Detail Recorded Client Recorded Date Recorded By Document 08/08/19 06:00 GLC [id number] 08/08/19 06:24 GLC 08/08/19 06:00 Orthostatic Vitals Standing -Blood Pressure (90/60-120/80) 109/90 H -Extremity Use Right Arm -Pulse Rate (60-100) 99 Sitting -Blood Pressure (90/60-120/80) 81/35 L -Extremity Use Right Arm -Pulse Rate (60-100) 97 Lying -Blood Pressure (90/60-120/80) 94/53 L -Extremity Use Right Arm -Pulse Rate (60-100) 93 Intake and Output for Last 24 Hours 08/06/19 08/07/19 08/08/19 23:59 23:59 23:59 Intake Total 794 / 1394 2256.67 / 2256.67 Output Total 700 / 700 Balance 794 / 1394 1556.67 / 1556.67 Microbiology Past 72 Hours 08/08/19 09:35 Stool Stool Occult Blood (KRISS) - Final Laboratory Results 08/07/19 15:20: WBC 16.3 H, RBC 2.51 L, Hgb 8.4 L, Hct 24.0 L, MCV 95.6 H, MCH 33.5 H, MCHC 35.0, RDW Std Deviation 49.8 H, RDW Coeff of Pravin 14.2, Plt Count 120 L, MPV 9.3, Immature Gran % (Auto) 1.400 H, Neut % (Auto) 84.5 H, Lymph % (Auto) 5.4 L, [place] % (Auto) 6.1, Eos % (Auto) 2.0, Baso % (Auto) 0.6, Absolute Neuts (auto) 13.8 H, Absolute Lymphs (auto) 0.88, Nucleated RBC % 0 08/07/19 15:20: PT 19.4 H, INR 1.7 08/07/19 15:20: Sodium 124 L, Potassium 4.4, Chloride 97 L, Carbon Dioxide 19.0 L, Anion Gap 8, BUN 52 H, Creatinine 1.88 H, Estim Creat Clear Calc 47.84, Est GFR (MDRD) Af Amer 48 L, Est GFR (MDRD) Non-Af 40 L, BUN/Creatinine Ratio 27.7 H , Glucose 132 H, Calcium 8.3 L, Total Bilirubin 6.20 H, AST 70 H, ALT 57, Alkaline Phosphatase 234 H, Total Protein 6.3 L, Albumin 2.1 L, Globulin 4.2, Albumin/Globulin Ratio 0.5 L 08/07/19 16:55: Ammonia < 10.0 L 08/07/19 17:19: Specimen Type Cancelled, Sample Site Cancelled, O2 % Cancelled, VBG pH Cancelled, VBG pH (Temp Correct) Cancelled, VBG pCO2 (Temp Corrct Cance lled, VBG pO2 Cancelled, VBG O2 Sat (Calc) Cancelled, VBG O2 Content Cancelled, VBG Base Excess Cancelled, POC Mix VBG pCO2 Pt Tmp Cancelled, Respiration Rate Cancelled, O2 Delivery Device Cancelled, Liter Flow Cancelled, Minute Volume Cancelled, Tidal Volume Cancelled, POC PEEP Cancelled, POC Pressure Suppt Cancelled, EPAP Cancelled, IPAP Cancelled, Blood Gas Notified Whom Cancelled, Blood Gas Notified Time Cancelled 08/07/19 17:19: Specimen Type ART, Sample Site L RADIAL, pH 7.31 L, Bicarbonate Actual 15.0 L, POC Total CO2 16, Base Excess -11 L, O2 Saturation 96, ABG pCO2 29.5 L, ABG pO2 91, Harshad Test POS, O2 Delivery Device Room Air, Blood Gas Notified Whom ED , Blood Gas Notified Time 1720 08/07/19 19:34: Lactic Acid 2.1 H* 08/07/19 : Lactic Acid 2.0 08/08/19 00:30: WBC 8.6, RBC 1.77 L, Hgb 5.8 L*, Hct 17.4 L, MCV 98.3 H, MCH 32.8 H, MCHC 33.3, RDW Std Deviation 52.3 H, RDW Coeff of Pravin 14.4, Plt Count 68 L, MPV 9.2, Immature Gran % (Auto) 0.700, Neut % (Auto) 78.8 H, Lymph % (Auto) 9.2 L, [place] % (Auto) 7.5, Eos % (Auto) 3.4, Baso % (Auto) 0.4, Absolute Neuts (auto) 6.8, Absolute Lymphs (auto) 0.79 L, Nucleated RBC % 0, Differential Comment SCANNED, Diff Path Review Reviewed, Platelet Estimate MOD DEC, Hypochromasia 2+, Anisocytosis RARE, Fortescue Cells 1+, Schistocytes RARE 08/08/19 00:30: Sodium 126 L, Potassium 4.4, Chloride 97 L, Carbon Dioxide 20.0 L, Anion Gap 9, BUN 54 H, Creatinine 1.69 H, Estim Creat Clear Calc 53.22, Est GFR (MDRD) Af Amer 55 L, Est GFR (MDRD) Non-Af 45 L, BUN/Creatinine Ratio 32.0 H , Glucose 113 H, Calcium 8.0 L, Total Bilirubin 5.10 H, AST 44 H, ALT 38, Alkaline Phosphatase 147 H, Total Protein 5.5 L, Albumin 2.8 L, Globulin 2.7, Albumin/Globulin Ratio 1.0 08/08/19 00:30: Lactic Acid 1.9 08/08/19 05:39: Specimen Type ART, Sample Site R RADIAL, pH 7.37, Bicarbonate Actual 16.6 L, POC Total CO2 17, Base Excess -9 L, O2 Saturation 95, ABG pCO2 28.7 L, ABG pO2 79, Harshad Test POS, O2 Delivery Device Room Air, Blood Gas Notified Whom [facility] , Blood Gas Notified Time 539 08/08/19 06:30: Blood Type O POSITIVE, Antibody Screen NEGATIVE, Crossmatch See Detail 08/08/19 10:31: Hgb 6.8 L Current Medications Dextrose (D50w Syringe) 0 gm IV X1 PRN; Protocol PRN Reason: Hypoglycemia Folic Acid (Folic Acid) 1 mg PO DAILY@0800 BELLA Last Admin: 08/08/19 08:22 Dose: 1 mg Documented by: Glucagon () 1 mg IM .X1 PRN PRN Reason: Hypoglycemia Sodium Chloride () 250 mls @ 15 mls/hr IV .[id number] PRN PRN Reason: Saline Flush Sodium Chloride () 250 mls @ 15 mls/hr IV .[id number] PRN PRN Reason: Additional IVPB Infusion Pantoprazole Sodium 40 mg/ (Sodium Chloride) 110 mls @ 330 mls/hr IV Q12 [facility] Last Infusion: 08/08/19 11:46 Dose: Infused Documented by: Octreotide Acetate 0.5 mg/ (Dextrose) 251 mls @ 12.5 mls/hr CONT INF .Q20H5M SC H Last Admin: 08/08/19 11:45 Dose: 12.5 mls/hr Documented by: Linezolid (Zyvox) 600 mg PO BID [facility] Last Admin: 08/08/19 11:45 Dose: Not Given Documented by: Midodrine (Proamatine) 10 mg PO TID@0800,1200,1700 [facility] Last Admin: 08/08/19 12:30 Dose: Not Given Documented by: [facility]it[facility]) [facility] Last Admin: 08/08/19 08:22 Dose: 1 tablet Documented by: Nutritional Formula (Lactose Free) (Ensure Enlive) 120 ml PO 4X/DAY [facility] Last Admin: 08/08/19 08:26 Dose: 120 ml Documented by: Ondansetron HCl (Zofran) 4 mg IV Q8H PRN PRN PRN Reason: NAUSEA/VOMITING Oxycodone HCl (Oxyir) 5 mg PO Q4H PRN PRN PRN Reason: Pain Score 4-10/10 Sodium Chloride () 10 - 40 ml IV UD PRN PRN Reason: SALINE FLUSH Thiamine HCl (Vitamin B1) [facility] Last Admin: 08/08/19 08:22 Dose: 100 mg Documented by: Home Medications: Medications to take at Discharge Folic Acid 1 mg PO DAILY@0800 #30 tab 07/04/19 Lactulose [Chronulac] 20 gm PO DAILY #1 bottle 07/04/19 Thiamine Hydrochloride [Vitamin B1] 100 mg PO DAILYCM #30 tab 07/04/19 Linezolid 600 mg PO BID #20 tab 07/29/19 Midodrine HCl 10 mg PO TID #90 tab 07/29/19 Furosemide [Lasix] 20 mg PO DAILY@1200 08/07/19 Furosemide [Lasix] 40 mg PO DAILY@0800 08/07/19 Spironolactone [Aldactone] 25 mg PO DAILY 08/07/19 Primary Care Physician: Jayesh Jeffers MD [Primary Care Provider] - Disposition: Acute care Hospital Minutes spent on discharge:: 35 Patient Condition:: Guarded Medical Necessity - Tobacco Use Smoking Status: Current every day smoker Tobacco Use: Cigarettes Meaningful Use Info Meaningful Use Diagnoses (Choose all that apply): None applicable <Thaddeus Kidd - Last Filed: 08/08/19 13:51> Discharge Date and Diagnosis - Secondary Discharge Diagnosis Chronic Problems: Chronic Problems HTN (hypertension) (Chronic) Alcoholism (Chronic) Alcoholic cirrhosis (Chronic) Anasarca (Chronic) Ascites (Chronic) Hospital Course and Treatment Imaging Results: 08/08/19 10:25 CT Abd [Abdomen/Pelvis without Cont] [CT] Stat Summary of Care Provided: This patient was seen in conjunction with UNDER WATER ASSISTANTTara. I have independently interviewed and examined the patient and reviewed pertinent history, examination findings, laboratory and plan of management. I have reviewed the note and agree with the documented findings with the few additional points. In brief, The patient is a 53 year old M with history of alcoholic cirrhosis decompensated with ascites, hepatic encephalopathy, portosystemic shunt, thrombocytopenia and splenomegaly admitted with near syncope and hypotension suspected to be secondary to hypovolemia. Patient was resuscitated with IV fluid. It appears that patient has 3 paracentesis in the last 1 week but has not gotten albumin IV infusion. Patient had total 1 g IV albumin infusion. After admission to floor, patient dropped hemoglobin from 8.4 to 5.8 most likely from upper GI bleed probably esophageal variceal bleed, although patient has not had obvious hematemesis, melena or external bleeding. Subsequently, patient transferred to ICU and resuscitated with IV fluid, PRBC transfusion. Patient on second unit of PRBC transfusion. Stool for occult blood negative. Patient is on IV PPI 40 mg twice daily, octreotide drip, and midodrine. CT abdomen was done at the request of accepting facility and shows cirrhosis with ascites, varices at the splenic hilum with splenomegaly. Patient on diuretic Lasix, spironolactone, lactulose at home. Recent MRSA bacteremia repeat culture Legionella was negative. On linezolid. Admitting diagnosis: Presyncope/near syncope, hypotension most likely secondary to occult upper GI bleed, most likely esophageal/GE variceal bleed. Decompensated alcoholic cirrhosis with ascites, hepatic encephalopathy, splenomegaly and portosystemic varices. Patient is in the process of transfer to [facility].. Total time spent, exact 35 minutes on discharge meds reconciliation, exa mination, coordination of care with nurses and ancillary staff, review of imaging and blood test and discussion with the patient on follow-up instructions I have discussed my assessment with UNDER WATER ASSISTANTTara and orders have been reviewed. Objective: Seen and examined. The patient was admitted yesterday for near syncope. His blood pressure was stable, 123/66 yesterday but dropped after midnight, 38/46. Patient transferred to ICU. IV fluid resuscitation done and blood pressure is stabilized 199/55. Patient has 2 peripheral IV lines. Patient has drop in hemoglobin from 8.4-5.8 and transfused PRBC. Last one 6.8 and PRBC going on Patient has history of alcoholic cirrhosis decompensated with ascites, hepatic encephalopathy, portosystemic anastomosis. Patient never had EGD. - Physical Exam Vitals/I&O's: Vital Signs Temp Pulse Resp BP Pulse Ox 97.8 F 86 18 103/47 L 96 08/08/19 12:00 08/08/19 13:00 08/08/19 13:00 08/08/19 13:00 08/08/19 13:00 Oxygen Delivery Method Room Air Weight: 231 lb 3.004 oz Body Mass Index (BMI) 31.4 Orthostatic Vital Signs Start: 08/07/19 18:59 Freq: q24h Status: Active Protocol: Activity Type Activity Date Activity User E-Sign Co-Sign Detail Recorded Client Recorded Date Recorded By Document 08/08/19 06:00 [facility] [id number] 08/08/19 06:24 [facility] 08/08/19 06:00 Orthostatic Vitals Standing -Blood Pressure (90/60-120/80) 109/90 H -Extremity Use Right Arm -Pulse Rate (60-100) 99 Sitting -Blood Pressure (90/60-120/80) 81/35 L -Extremity Use Right Arm -Pulse Rate (60-100) 97 Lying -Blood Pressure (90/60-120/80) 94/53 L -Extremity Use Right Arm -Pulse Rate (60-100) 93 Intake and Output for Last 24 Hours 08/06/19 08/07/19 08/08/19 23:59 23:59 23:59 Intake Total 794 / 1394 2256.67 / 2256.67 Output Total 700 / 700 Balance 794 / 1394 1556.67 / 1556.67 General: Alert, Oriented x3, Cooperative, - - I think patient has difficulty in understanding and comprehension probably chronic mild cognitive deficit. HEENT: Atraumatic, PERRLA, EOMI, Normocephalic Oral: No Gingival or Mucosal Lesions/ Ulcerations, Dry Mucosa, - - Pallor present. Neck: Supple, No JVD, Negative Carotid Bruits Lungs: Clear to auscultation, No rhonchi, No wheeze, No rales, Diminished Cardiovascular: Regular rate, Regular Rhythm, Normal S1, Normal S2, No murmurs Abdomen: Bowel Sounds Present, Soft, Non Tender, Non-Distended, - - Mild ascites present. Extremities: Capillary Refill Less than 3 Seconds, Edema Skin: No rashes, No breakdown Musculoskeletal: No Tenderness to Palpation of Joints or Extremities, Arthritic Changes Neurological: Cranial nerves II-XII grossly intact, Deep Tendon Reflexes 2+/4 and Symmetrical, Neuro grossly intact Psych/Mental Status: Normal Affect, Appropriate Microbiology Past 72 Hours 08/08/19 09:35 Stool Stool Occult Blood (KRISS) - Final Laboratory Results 08/07/19 15:20: WBC 16.3 H, RBC 2.51 L, Hgb 8.4 L, Hct 24.0 L, MCV 95.6 H, MCH 33.5 H, MCHC 35.0, RDW Std Deviation 49.8 H, RDW Coeff of Pravin 14.2, Plt Count 120 L, MPV 9.3, Immature Gran % (Auto) 1.400 H, Neut % (Auto) 84.5 H, Lymph % (Auto) 5.4 L, [place] % (Auto) 6.1, Eos % (Auto) 2.0, Baso % (Auto) 0.6, Absolute Neuts (auto) 13.8 H, Absolute Lymphs (auto) 0.88, Nucleated RBC % 0 08/07/19 15:20: PT 19.4 H, INR 1.7 08/07/19 15:20: Sodium 124 L, Potassium 4.4, Chloride 97 L, Carbon Dioxide 19.0 L, Anion Gap 8, BUN 52 H, Creatinine 1.88 H, Estim Creat Clear Calc 47.84, Est GFR (MDRD) Af Amer 48 L, Est GFR (MDRD) Non-Af 40 L, BUN/Creatinine Ratio 27.7 H , Glucose 132 H, Calcium 8.3 L, Total Bilirubin 6.20 H, AST 70 H, ALT 57, Alkaline Phosphatase 234 H, Total Protein 6.3 L, Albumin 2.1 L, Globulin 4.2, Albumin/Globulin Ratio 0.5 L 08/07/19 16:55: Ammonia < 10.0 L 08/07/19 17:19: Specimen Type Cancelled, Sample Site Cancelled, O2 % Cancelled, VBG pH Cancelled, VBG pH (Temp Correct) Cancelled, VBG pCO2 (Temp Corrct Cancelled, VBG pO2 Cancelled, VBG O2 Sat (Calc) Cancelled, VBG O2 Content Cancelled, VBG Base Excess Cancelled, POC Mix VBG pCO2 Pt Tmp Cancelled, Respiration Rate Cancelled, O2 Delivery Device Cancelled, Liter Flow Cancelled, Minute Volume Cancelled, Tidal Volume Cancelled, POC PEEP Cancelled, POC Pressure Suppt Cancelled, EPAP Cancelled, IPAP Cancelled, Blood Gas Notified Whom Cancelled, Blood Gas Notified Time Cancelled 08/07/19 17:19: Specimen Type ART, Sample Site L RADIAL, pH 7.31 L, Bicarbonate Actual 15.0 L, POC Total CO2 16, Base Excess -11 L, O2 Saturation 96, ABG pCO2 29.5 L, ABG pO2 91, Harshad Test POS, O2 Delivery Device Room Air, Blood Gas N otified Whom ED , Blood Gas Notified Time 1720 08/07/19 19:34: Lactic Acid 2.1 H* 08/07/19 : Lactic Acid 2.0 08/08/19 00:30: WBC 8.6, RBC 1.77 L, Hgb 5.8 L*, Hct 17.4 L, MCV 98.3 H, MCH 32.8 H, MCHC 33.3, RDW Std Deviation 52.3 H, RDW Coeff of Pravin 14.4, Plt Count 68 L, MPV 9.2, Immature Gran % (Auto) 0.700, Neut % (Auto) 78.8 H, Lymph % (Auto) 9.2 L, [place] % (Auto) 7.5, Eos % (Auto) 3.4, Baso % (Auto) 0.4, Absolute Neuts (auto) 6.8, Absolute Lymphs (auto) 0.79 L, Nucleated RBC % 0, Differential Comment SCANNED, Diff Path Review Reviewed, Platelet Estimate MOD DEC, Hypochromasia 2+, Anisocytosis RARE, Fortescue Cells 1+, Schistocytes RARE 08/08/19 00:30: Sodium 126 L, Potassium 4.4, Chloride 97 L, Carbon Dioxide 20.0 L, Anion Gap 9, BUN 54 H, Creatinine 1.69 H, Estim Creat Clear Calc 53.22, Est GFR (MDRD) Af Amer 55 L, Est GFR (MDRD) Non-Af 45 L, BUN/Creatinine Ratio 32.0 H , Glucose 113 H, Calcium 8.0 L, Total Bilirubin 5.10 H, AST 44 H, ALT 38, Alkaline Phosphatase 147 H, Total Protein 5.5 L, Albumin 2.8 L, Globulin 2.7, Albumin/Globulin Ratio 1.0 08/08/19 00:30: Lactic Acid 1.9 08/08/19 05:39: Specimen Type ART, Sample Site R RADIAL, pH 7.37, Bicarbonate Actual 16.6 L, POC Total CO2 17, Base Excess -9 L, O2 Saturation 95, ABG pCO2 28.7 L, ABG pO2 79, Harshad Test POS, O2 Delivery Device Room Air, Blood Gas Notified Whom [facility] , Blood Gas Notified Time 539 08/08/19 06:30: Blood Type O POSITIVE, Antibody Screen NEGATIVE, Crossmatch See Detail 08/08/19 10:31: Hgb 6.8 L Current Medications Dextrose (D50w Syringe) 0 gm IV X1 PRN; Protocol PRN Reason: Hypoglycemia Folic Acid (Folic Acid) 1 mg PO DAILY@0800 [facility] Last Admin: 08/08/19 08:22 Dose: 1 mg Documented by: Glucagon () 1 mg IM .X1 PRN PRN Reason: Hypoglycemia Sodium Chloride () 250 mls @ 15 mls/hr IV .[id number] PRN PRN Reason: Saline Flush Sodium Chloride () 250 mls @ 15 mls/hr IV .[id number] PRN PRN Reason: Additional IVPB Infusion Pantoprazole Sodium 40 mg/ (Sodium Chloride) 110 mls @ 330 mls/hr IV Q12 [facility] Last Infusion: 08/08/19 11:46 Dose: Infused Documented by: Octreotide Acetate 0.5 mg/ (Dextrose) 251 mls @ 12.5 mls/hr CONT INF .Q20H5M [facility] Last Admin: 08/08/19 11:45 Dose: 12.5 mls/hr Documented by: Linezolid (Zyvox) 600 mg PO BID [facility] Last Admin: 08/08/19 11:45 Dose: Not Given Documented by: Midodrine (Proamatine) 10 mg PO TID@0800,1200,1700 [facility] Last Admin: 08/08/19 12:30 Dose: Not Given Documented by: Multivitamins ([facility]amin) [facility] Last Admin: 08/08/19 08:22 Dose: 1 tablet Documented by: Ondansetron HCl (Zofran) 4 mg IV Q8H PRN PRN PRN Reason: NAUSEA/VOMITING Oxycodone HCl (Oxyir) 5 mg PO Q4H PRN PRN PRN Reason: Pain Score 4-10/10 Sodium Chloride () 10 - 40 ml IV UD PRN PRN Reason: SALINE FLUSH Thiamine HCl (Vitamin B1) [facility] Last Admin: 08/08/19 08:22 Dose: 100 mg Documented by: Throat Lozenges (Cepacol Sore Throat Lozenge) 1 lozenge MUCOUS MEM Q2H PRN PRN PRN Reason: SORE THROAT Inpatient E&M: [id number] Disch Hosp
--- NOTE | 2019-08-08 15:22 | NURSING ---
Report called to LAKESHIA Alicia at .
== END 2019-08-08 16:45 | disposition other institution (70) | DRG 641 ==
LOC: ED 15:38 → MS3 08-08 06:29 → ICU 08-11 08:35
PROVIDERS: Hospitalist; Nurse Practitioner Family; Admitting Provider Internal Medicine; Emergency Provider Emergency Medicine; PCP Family Medicine; Visit Provider Internal Medicine
DX: E86.1 Hypovolemia (principal); N17.9 Acute kidney failure, unspecified; R55 Syncope and collapse; I86.8 Varicose veins of other specified sites; E87.1 Hypo-osmolality and hyponatremia; I95.9 Hypotension, unspecified; D53.9 Nutritional anemia, unspecified; K70.31 Alcoholic cirrhosis of liver with ascites; Z86.14 Personal history of Methicillin resistant Staphylococcus aureus infection; F10.20 Alcohol dependence, uncomplicated; F41.0 Panic disorder [episodic paroxysmal anxiety]; I10 Essential (primary) hypertension; D69.6 Thrombocytopenia, unspecified; Z79.899 Other long term (current) drug therapy; F17.210 Nicotine dependence, cigarettes, uncomplicated; E87.2 Acidosis; R16.1 Splenomegaly, not elsewhere classified; K72.90 Hepatic failure, unspecified without coma
CPT/HCPCS: 36415; 36600; 71045; 74176; 80053; 82140; 82274; 82803; 83605; 85018; 85025; 85610; 86644; 86850; 86900; 86901; 86920; 86922; 87040; 93005; 97802; 99283; 99406; J7030; J7040; P9016; P9047; A4216

== ENCOUNTER → 2019-08-14 | Outpatient (CLI) | payer OTHER, SELFPAY ==
[2019-07-28 04:59] VITALS: BMI 37.8
[2019-08-07 17:43] VITALS: BMI 31.4
--- NOTE | 2019-08-14 13:45 | US_ITS ---
PROCEDURE: ULTRASOUND GUIDED PARACENTESIS CLINICAL HISTORY: Male, 53 years old. ASCITES CONSENT: Informed consent obtained Time-Out Called: Yes. Consent form signed: Yes. PT-PTT Levels Checked: Yes. SEDATION: Local sedation with 2% Xylocaine TECHNIQUE: Ultrasound guided FINDINGS: FLUID PRE-PROCEDURE There is posterior enhancement. The findings appear anechoic. There is no loculation. After informed consent was obtained, patient was placed in the supine position on the sonographic bed, and an appropriate site for paracentesis was determined. The marked area was prepped and draped in a sterile manner and 2% Xylocaine was used as local anesthetic. Under sonographic guidance, a 15-gauge [employer] drainage catheter was advanced into the peritoneal cavity and approximately 4500 mL of straw-colored serous fluid was withdrawn from the abdomen. Patient tolerated the procedure well with no immediate complications. FLUID POST-PROCEDURE Amount of fluid drained: 4500 ml. US/Paracentesis with US IMPRESSION: Successful sonographically guided paracentesis Electronically Signed: Abiodun Ramey MD at 15:13 EDT , Service support ,
[2019-08-14 14:03] VITALS: BP 103/52; BP 94/47; PULSE 87; PULSE 90; RESP 14; RESP 16; O2SAT 100
[2019-08-14 14:58] VITALS: BP 97/44; PULSE 82; RESP 18; TEMP 36.8; O2SAT 100; BMI 33.0
[2019-08-14] MEDS: 0.9% Saline Lock 10 ML Syringe IV (15:33)
[2019-08-14] MEDS: Albumin Human 25% (100 mL) 25 GM/100 ML BAG IV (15:34)
== END | disposition home or self-care (01) ==
LOC: US 13:40 → MEDOUTP 14:50
PROVIDERS: PCP Family Medicine; Visit Provider Family Medicine
DX: R18.8 Other ascites (principal); K70.10 Alcoholic hepatitis without ascites
CPT/HCPCS: 96365; 96366; 49083; P9047; A4216

== ENCOUNTER → 2019-08-28 | Outpatient (CLI) | payer OTHER, SELFPAY ==
[2019-07-28 04:59] VITALS: BMI 37.8
[2019-08-14 14:58] VITALS: BMI 33.0
--- NOTE | 2019-08-28 12:58 | US_ITS ---
PROCEDURE: Ultrasound guided paracentesis. DATE OF EXAMINATION: August 28, 2019. INDICATION: Male, 53 years old. Ascites. PHYSICIAN: eDmar Chamberlain M.D. TECHNIQUE: The risks, benefits, and alternatives to the procedure were explained to the patient. The specific risks of bleeding, infection, and damage to bowel were detailed and accepted. Witnessed informed consent was obtained. The abdomen was ultrasonographically surveyed. An appropriate pocket of fluid was identified at the left lower quadrant. The skin were cleaned and prepped in the usual sterile fashion. Using ultrasound guidance, the peritoneal cavity was accessed with a 5-Swedish paracentesis needle/catheter system. The trocar was removed. A total of 7600 ml of russel-colored fluid were removed from the peritoneal cavity. The catheter was removed and a sterile dressing was applied. The procedure was well tolerated. US/Paracentesis with US IMPRESSION: Ultrasound guided paracentesis. Electronically Signed: Demar Chamberlain, at 14:35 EDT , Service support ,
[2019-08-28 13:13] VITALS: BP 105/55; BP 107/61; BP 110/53; BP 112/59; BP 98/58; PULSE 92; PULSE 93; PULSE 94; PULSE 97; RESP 16; TEMP 37; O2SAT 100; O2SAT 97; O2SAT 98
[2019-08-28 14:24] VITALS: BP 103/57; PULSE 87; RESP 18; TEMP 36.4; O2SAT 100; BMI 33.0
[2019-08-28] MEDS: Albumin Human 25% (100 mL) 25 GM/100 ML BAG IV (14:54)
[2019-08-28] MEDS: 0.9% Saline Lock 10 ML Syringe IV (14:58)
[2019-08-28] MEDS: Albumin Human 25% (50 mL) 12.5 GM/50 ML IV.SOLN IV (16:20)
--- NOTE | 2019-09-01 14:08 | NURSING ---
PT CALLED THE DEPT TO INFORM OF CONTINUED LEAKAGE, 4 DAYS FOLLOWING PARA DESPITE ER VISIT OVER THE WEEKEND. PT CAME TO RADIOLOGY FOR EVALUATION BY NURSE. SEVERAL LAYERS OF DERMABOND APPLIED, DRYING BETWEEN EACH. PT PUT IN HIGH FOWLERS POSITION AND GIVEN CALL LIGHT. PT RESTING COMFORTABLY DURING OBSERVATION.
--- NOTE | 2019-09-01 14:59 | NURSING ---
PT DID NOT HAVE ANY LEAKAGE WHILE IN RADIOLOGY. PT ASSISTED INTO WC AND WHEELED TO CAR.
== END | disposition home or self-care (01) ==
LOC: US 12:54 → MEDOUTP 14:13
PROVIDERS: PCP Family Medicine; Referring Provider Internal Medicine Gastroenterology; Visit Provider Internal Medicine Gastroenterology
DX: R18.8 Other ascites (principal)
CPT/HCPCS: 96365; 96366; 49083; P9047; A4216

== ENCOUNTER 2019-08-30 14:47 | Emergency (ER) | payer OTHER, SELFPAY ==
[2019-08-28 14:24] VITALS: BMI 33.0
[2019-08-30 14:49] VITALS: BP 135/80; PULSE 93; RESP 18; TEMP 36.2; O2SAT 100; BMI 33.5
--- NOTE | 2019-08-30 15:18 | ED.DCSUM_ITS ---
History of Present Illness Chief Complaint: Abd Pain Detail of Chief Complaint: Leakage from paracentesis site Informant: Patient Onset: Yesterday Timing: Continuous Narrative: 53-year-old male with history of cirrhosis presents with leakage from his paracentesis site. He states he initially had to go once a week but has decreased this to every 3 weeks. He states that most of the time there is a problem with leakage from the site. He is given pressure dressings for the site however he is run out of these. He has a pinpoint area of slow leakage from this area. Is not purulent. Not foul-smelling. No abdominal pain, nausea, vomiting, diarrhea, constipation had his paracentesis performed yesterday. Prior similar symptoms: Yes Past Medical History - Allergies and Home Meds Allergies/Adverse Reactions: Allergies lisinopril Allergy (Verified 08/30/19 14:49) PT UNSURE OF REACTION codeine Adverse Reaction (Verified 08/30/19 14:49) Nausea hydrocodone [From Vicodin] Adverse Reaction (Verified 08/30/19 14:49) Itching Primary Care Physician: Jayesh Jeffers MD [Primary Care Provider] - Prior records reviewed: Yes Surgical History: - - Inguinal and umbilical hernia repair, colonoscopy, Cirrhosis Smoking Status: Current every day smoker - Family History Maternal Family History: Reports: - - Denies known maternal medical history including cardiac history Paternal Family History: Reports: - - Denies known paternal medical history including cardiac history Review of Systems General: Denies: Chills, Fever Eyes: Denies: Visual changes - bilaterally, Diplopia ENT: Denies: Rhinorrhea, Sore throat Cardiovascular: Denies: Chest pain, Palpitations Respiratory: Denies: Dyspnea, Cough, Dyspnea on exertion Gastrointestinal: Reports: - - Leakage from paracentesis site. Denies: Abdominal pain, Nausea, Vomiting, Diarrhea, Constipation Musculoskeletal: Denies: Myalgias, Arthralgias Skin: Denies: Rash, Abscess Psych: Denies: Depression, Anxiety Allergy: Denies: Uticaria Physical Exam Vital Signs/Narrative: Vital Signs Temp Pulse Resp BP Pulse Ox 08/30/19 14:49 97.1 F L 93 18 135/80 H 100 Inital Vital Signs reviewed: Yes General: Obese, No Acute Distress Head: Normocephalic, Atraumatic Eyes: Perrl, EOMI ENT: Moist mucous membranes Cardiovascular: Regular rate, Regular rhythm Respiratory: No distress, CTA bilaterally Abdomen: Soft, Nontender, - - Punctate area of leakage from paracentesis site. Is not purulent. No redness around the wound. Patient's abdominal exam is benign he has no tenderness to palpation. Diagnostic/Tx/Re-eval - Medical Decision Making Patient is seen and evaluated for leaking paracentesis site. This is a punctate area. There is only a small amount of drainage which is nonpurulent. There is no cellulitic change around it. His abdomen is benign. Patient states that he ran out of his dressings that he received from [facility] and he does not have a way to dress it so little stick tight enough to his abdomen. Today we placed a pressure dressing and given an abdominal binder to go over this until he can follow-up. He is counseled that if he starts to have abdominal pain or develop fever or systemic signs or symptoms should return to the ED. He acknowledged understanding. Patient stable for discharge. ED Disposition - Plan for ED Patient: Disposition: Home or Assisted Living Diagnosis: Visit for wound check, S/P abdominal paracentesis Instructions: ED Wound Care Referrals: Jayesh Jeffers MD [Primary Care Provider] -
== END 2019-08-30 16:26 | disposition home or self-care (01) ==
PROVIDERS: Emergency Provider Student in an Organized Health Care Education/Training Program; PCP Family Medicine
DX: L76.82 Other postprocedural complications of skin and subcutaneous tissue (principal); Z48.00 Encounter for change or removal of nonsurgical wound dressing; K74.60 Unspecified cirrhosis of liver; F17.200 Nicotine dependence, unspecified, uncomplicated; E66.9 Obesity, unspecified
CPT/HCPCS: 99282

== ENCOUNTER → 2019-09-17 | Outpatient (CLI) | payer OTHER, SELFPAY ==
[2019-08-30 14:49] VITALS: BMI 33.5
--- NOTE | 2019-09-17 12:31 | US_ITS ---
PROCEDURE: Ultrasound guided paracentesis. DATE OF EXAMINATION: 09/17/2019. INDICATION: Male, 53 years old. Ascites. PHYSICIAN: Demar Chamberlain M.D. TECHNIQUE: The risks, benefits, and alternatives to the procedure were explained to the patient. The specific risks of bleeding, infection, and damage to bowel were detailed and accepted. Witnessed informed consent was obtained. The abdomen was ultrasonographically surveyed. An appropriate pocket of fluid was identified at the right lower quadrant. The skin were cleaned and prepped in the usual sterile fashion. Using ultrasound guidance, the peritoneal cavity was accessed with a 5-Kazakh paracentesis needle/catheter system. The trocar was removed. A total of 8100 ml of russel-colored fluid were removed from the peritoneal cavity. The catheter was removed and a sterile dressing was applied. The procedure was well tolerated. US/Paracentesis with US IMPRESSION: Ultrasound guided paracentesis. Electronically Signed: Demar Chamberlain, at 14:24 EDT , Service support ,
[2019-09-17] MEDS: Albumin Human 25% (100 mL) 25 GM/100 ML BAG IV (14:31)
[2019-09-17 14:32] VITALS: BP 110/51; PULSE 74; RESP 16; TEMP 36.2; O2SAT 95; BMI 32.9
[2019-09-17 14:33] VITALS: BP 108/42; BP 110/49; BP 113/57; BP 116/40; PULSE 79; PULSE 80; PULSE 83; PULSE 94; RESP 14; TEMP 36.6; O2SAT 100; O2SAT 98
[2019-09-17] MEDS: Albumin Human 25% (50 mL) 12.5 GM/50 ML IV.SOLN IV (15:54)
== END | disposition home or self-care (01) ==
LOC: US 12:30 → MEDOUTP 14:12
PROVIDERS: PCP Family Medicine; Referring Provider Internal Medicine Gastroenterology; Visit Provider Internal Medicine Gastroenterology
DX: K70.10 Alcoholic hepatitis without ascites (principal); R18.8 Other ascites
CPT/HCPCS: 96365; 96366; 49083; P9047

== ENCOUNTER 2019-09-22 19:24 | Inpatient (IN) | payer OTHER, SELFPAY ==
[2019-09-17 14:32] VITALS: BMI 32.9
[2019-09-22 19:25] VITALS: BP 121/59; PULSE 81; RESP 16; TEMP 36.4; O2SAT 100; BMI 32.5
--- NOTE | 2019-09-22 19:51 | CT_ITS ---
STUDY: CT ABDOMEN AND PELVIS WITHOUT CONTRAST REASON FOR EXAM: Male, 53 years old. ABSCESS ON OLD PARACENTESIS SITE. LLQ. INCREASED WBC -- HX:HTN,ALCOHOLIC CIRRHOSIS,PETER,MULT PARACENTESIS RADIATION DOSAGE (If Supplied By Facility): CTDIvol = ( 19.95 ) mGy, DLP = ( 1081.65 ) mGycm TECHNIQUE: Transaxial images were obtained from the dome of the diaphragm to the symphysis pubis without oral contrast, and without intravenous contrast. Sagittal and coronal images were reconstructed. Individualized dose optimization techniques were used for this CT. COMPARISON: CT of abdomen and pelvis dated AUGUST 08 2019 FINDINGS: 1. A small left lower lobe pleural effusion is present. There is a diffuse contour abnormality of the liver consistent with cirrhotic changes. Multiple venous varices of the central abdomen likely related to portal vein hypertension. 2. There are multiple gallstones. 3. Normal spleen. Normal pancreas. 4. Large amount of abdominal and pelvic ascites reidentified with slight interval increase. 5. Nonobstructing 3 mm calyceal stones in the mid and lower pole of the right kidney reidentified. No hydronephrosis. Normal left kidney. Normal adrenal glands. 6. Interval increase in left anterior abdominal wall fluid with a 9.15 cm pocket now present, which could represent an abscess or seroma. Diffuse body wall edema is present. No visualized subcutaneous gas. 7. Normal visualized stomach. Normal small intestine. There are multiple colonic diverticula consistent with diverticulosis. The appendix is visualized and appears normal. 8. Surgical material of the right lower quadrant reidentified. 9. There is diffuse atherosclerotic calcification of the abdominal aorta, without a demonstrated aneurysm. Normal inferior vena cava. There is borderline retroperitoneal lymphadenopathy with enlarged nodes no greater than 10mm in the short axis diameter. 10. Unremarkable bladder. Stable osseous structures without evidence of an acute or aggressive process. CT/Abdomen/Pelvis without Cont IMPRESSION: * Interval increase in left anterior abdominal wall fluid with a 9.15 cm pocket now present, which could represent an abscess or seroma. Diffuse body wall edema is present. No visualized subcutaneous gas. * Large amount of abdominal ascites and cirrhotic liver * Colonic diverticulosis Electronically Signed: Yovani Boss MD at 21:28 EDT , Service support ,
[2019-09-22] MEDS: Morphine 4 MG/ML Syringe IV (20:14)
[2019-09-22 20:24] LABS: Absolute Lymphocyte Count 1.18 X10^3/uL (0.83-4.51); Absolute Neutrophil Count 10.5 X10^3/uL (2.0-7.7); Basophil# 0.06 X10^3/uL; Basophil% 0.4 % (0-1); Eosinophil# 0.27 X10^3/uL; Hematocrit 21.6 % (40-54); Hemoglobin 7.2 g/dL (13.0-16.5); Lymphocyte # 1.18 X10^3/ul (4.0); Lymphocyte % 8.8 % (19-41); Mean Corp Hgb Conc 33.3 g/dL (32-36); Mean Corpuscular Hgb 31.2 pg (27.0-32.0); Mean Corpuscular Volume 93.5 fL (80-94); Mean Platelet Vol. 10.1 fl (6.2-12.0); Monocyte# 1.02 X10^3/uL; Monocyte% 7.6 % (0-10); NRBC Flagged by Analyzer 0 % (0-5); Neutrophil # 10.48 X10^3/uL (2.7-7.7); Neutrophil % 78.7 % (47-70); Platelet Count 103 K/mm3 (150-450); RBC Distribution Width CV 16.2 % (11.6-14.6); RBC Distribution Width SD 55.2 fl (35.1-43.9); Red Blood Count 2.31 M/mm3 (4.6-6.2); White Blood Count 13.3 K/mm3 (4.4-11.0)
[2019-09-22 20:26] VITALS: BP 109/52; PULSE 71; RESP 18; TEMP 36.7; O2SAT 99
[2019-09-22 20:38] LABS: ALB/GLOB Ratio 0.7 RATIO (0.9-2.4); AST(SGOT) 49 U/L (15-37); Alanine Aminotransfer ALT/SGPT 25 U/L (16-61); Albumin, Serum 2.5 g/dL (3.2-5.0); Alkaline Phosphatase 215 U/L (45-117); Anion Gap 4 (5-15); BUN 22 mg/dL (7-18); BUN/Creat Ratio 17.7 RATIO (10-20); Calcium,Total 8.1 mg/dL (8.5-10.1); Chloride 98 mmol/L (98-107); Creatinine, Serum 1.24 mg/dL (0.70-1.30); EST Glomerular Filtration Rate 64 mL/min (>60); Est Glom Filt Rate - Afr Amer 78 mL/min (>60); Estimated Creatinine Clearance 72.53 ml/min; Globulin 3.8 g/dL (2.2-4.2); Glucose 90 mg/dL (74-106); Potassium 4.3 mmol/L (3.5-5.1); Protein, Total 6.3 g/dL (6.4-8.2); Sodium Level 129 mmol/L (136-145)
[2019-09-22 20:47] LABS: International Normalized Ratio 1.8; Prothrombin Time (Protime)PT. 20.4 SECONDS (11.7-14.9)
[2019-09-22 21:00] VITALS: BP 114/53; PULSE 75; RESP 17; TEMP 36.6; O2SAT 99
[2019-09-22 21:56] VITALS: BP 118/57; PULSE 76; RESP 17; TEMP 36.9; O2SAT 100
[2019-09-22 22:22] LABS: Lactic Acid 1.2 mmol/L (0.4-1.9)
[2019-09-22 23:00] VITALS: BP 109/55; PULSE 73; RESP 18; TEMP 36.6; O2SAT 100
--- NOTE | 2019-09-22 23:24 | HP.PCM_ITS ---
Problem List (1) Abscess Status: Acute (2) HTN (hypertension) Status: Chronic (3) Alcoholism Status: Chronic (4) Alcoholic cirrhosis Status: Chronic (5) Anasarca Status: Chronic (6) Ascites Status: Chronic (7) Hyponatremia Status: Chronic (8) Anemia Status: Chronic History of Present Illness Date of Admission: 09/22/19 Chief Complaint: Swelling on abdomen The patient is a 53 year old M with a significant history of alcoholic liver cirrhosis who presents emergency department with swelling of his abdomen. The swelling is at his left lower quadrant where he had a previous paracentesis. He reports a pain at his left lower abdomen when he coughs. Patient went to see his PCP who advised patient to come to the hospital. Patient gets routine paracentesis because of ascites. Emergency department doctor reported discussing case with general surgery who recommended that interventional radiologist be consulted for a possible image guided drainage and if fluid collection showed a pus General Surgery can then be consulted. Blood cultures on 07/25/2019 showed MRSA bacteremia. Past Medical History Past Medical History (Chronic Problems): Chronic Problems HTN (hypertension) (Chronic) Alcoholism (Chronic) Alcoholic cirrhosis (Chronic) Anasarca (Chronic) Ascites (Chronic) Hyponatremia (Chronic) Anemia (Chronic) Allergies lisinopril Allergy (Verified 09/22/19 19:26) PT UNSURE OF REACTION codeine Adverse Reaction (Verified 09/22/19 19:26) Nausea hydrocodone [From Vicodin] Adverse Reaction (Verified 09/22/19 19:26) Itching Home Medications: Ambulatory Orders Medication Instructions Recorded Folic Acid 1 mg PO DAILY@0800 #30 tab 07/04/19 Thiamine Hydrochloride [Vitamin B1] 100 mg PO DAILYCM #30 tab 07/04/19 Midodrine HCl 10 mg PO TID #90 tab 07/29/19 Furosemide [Lasix] 40 mg PO BID 08/07/19 Spironolactone [Aldactone] 150 mg PO DAILY 08/07/19 Lactulose 20 gm PO DAILY 09/22/19 hydrOXYzine tablet [Atarax tablet] 25 mg PO 4X/DAY PRN PRN 09/22/19 Surgical History: - - Inguinal and umbilical hernia repair, colonoscopy, Cirrhosis Psychiatric History: Anxiety Smoking Status: Current every day smoker Tobacco Use: Cigarettes - *Family History Maternal History Items: Cancer - colon, Hypertension, Stroke, - Paternal History Items: Heart Disease, Hypertension, - Review of Systems Constitutional: Denies: Chills, Fever, Weight Change HEENT: Denies: Head Aches, Sinus Congestion, Sinus Drainage Cardiovascular: Denies: Chest Pain, Palpitations Respiratory: Denies: Cough, Shortness of breath at rest, Sputum production Gastrointestinal: Reports: Abdominal Pain. Denies: Nausea, Vomiting Genitourinary: Denies: Dysuria Musculoskeletal: Denies: Joint Pain, Joint Tenderness Skin: Denies: Rash, Wounds Neurological: Denies: Numbness, Tingling, Focal weakness Psychiatric: Denies: Anxiety, Depression, Homicidal Ideations, Suicidal Ideations Hematologic/ Lymphatic: Denies: Easy Bruising, Easy Bleeding VTE Information - Inpt Only VTE Present on Admission: No VTE Mechan Device Prophylaxis: SCD's VTE Pharm Prophylaxis ordered?: No Patient Problems: Active and Suspected Problems Abscess (Acute) - Physical Exam Vitals/I&O's: Vital Signs Temp Pulse Resp BP Pulse Ox 97.9 F 73 18 109/55 L 100 09/22/19 23:00 09/22/19 23:00 09/22/19 23:00 09/22/19 23:00 09/22/19 23:00 Oxygen Delivery Method Room Air Weight: 105.8 kg Body Mass Index (BMI) 32.5 General: Alert, Oriented x3, Cooperative HEENT: Atraumatic, PERRLA, EOMI, Normocephalic Neck: Supple, No JVD, Negative Carotid Bruits Lungs: Clear to auscultation, Normal air movement Cardiovascular: Regular rate, Normal S1, Normal S2, No murmurs Abdomen: Bowel Sounds Present, Soft, Non Tender, - Extremities: Edema - Bilateral lower extremities Skin: - - Erythema of left lower quadrant of abdomen; swelling of left lower quadrant of abdomen. Edema of abdomen Musculoskeletal: No Tenderness to Palpation of Joints or Extremities Neurological: Cranial nerves II-XII grossly intact Psych/Mental Status: Normal Affect, Appropriate Laboratory Results 09/22/19 20:10: WBC 13.3 H, RBC 2.31 L, Hgb 7.2 L, Hct 21.6 L, MCV 93.5, MCH 31.2, MCHC 33.3, RDW Std Deviation 55.2 H, RDW Coeff of Pravin 16.2 H, Plt Count 103 L, MPV 10.1, Immature Gran % (Auto) 2.500 H, Neut % (Auto) 78.7 H, Lymph % (Auto) 8.8 L, [place] % (Auto) 7.6, Eos % (Auto) 2.0, Baso % (Auto) 0.4, Absolute Neuts (auto) 10.5 H, Absolute Lymphs (auto) 1.18, Nucleated RBC % 0 09/22/19 20:10: PT 20.4 H, INR 1.8, APTT 41.0 H 09/22/19 20:10: Sodium 129 L, Potassium 4.3, Chloride 98, Carbon Dioxide 27.0, Anion Gap 4 L, BUN 22 H, Creatinine 1.24, Estim Creat Clear Calc 72.53, Est GFR (MDRD) Af Amer 78, Est GFR (MDRD) Non-Af 64, BUN/Creatinine Ratio 17.7, Glucose 90, Calcium 8.1 L, Total Bilirubin 4.20 H, AST 49 H, ALT 25, Alkaline Phosphatase 215 H, Total Protein 6.3 L, Albumin 2.5 L, Globulin 3.8, Albumin/Globulin Ratio 0.7 L 09/22/19 21:50: Lactic Acid 1.2 09/22/19 21:50: Blood Type O POSITIVE, Antibody Screen NEGATIVE Current Medications Vancomycin HCl 1,500 mg/ (Sodium Chloride) 530 mls @ 250 mls/hr IV X1 ONE Stop: 09/23/19 00:42 Last Admin: 09/22/19 23:12 Dose: 250 mls/hr Documented by: Assessment/Plan All Active Problems Bacteremia (Resolved) Abscess (Acute) The patient is a 53 year old M with a significant history of alcoholic liver cirrhosis who presents emergency department with swelling and erythema of his left lower quadrant at site of entry for paracentesis; and with radiographic evidence of interval increase in the pocket of fluid in his anterior abdominal wall. Abdominal abscess Likely from complications of paracentesis. Because of history of MRSA bacteremia patient was started on vancomycin at the emergency department. Vancomycin continued inpatient Per general surgery recommendation as in HPI will consult interventional radiology for possible image guided drainage. If drainage shows pus consider general surgery consult. PRN morphine for pain. Anemia Chronic Likely from hypoactive bone marrow secondary to alcoholism Liver cirrhosis Fluid restriction of thousand 1500 per day. Lasix continued Lactulose continued Midodrine continued History of alcoholism Thiamine and folic acid continued Tobacco abuse Counseled DVT prophylaxis SCD ordered. No chemical thromboprophylaxis in view of a possible abdominal wall percutaneous drainage. Inpatient E&M: 28588 Init Hosp L3
[2019-09-23] VITALS (8 sets, daily range): BP systolic 95–134; BP diastolic 41–82; PULSE 71–89; RESP 16–20; TEMP 36.7–37; O2SAT 95–100; BMI 32.7
--- NOTE | 2019-09-23 00:15 | ED.VISSUMM ---
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 Patient reports that he has had frequent paracentesis done with ultrasound guidance by Dr. Chamberlain here. States the last one on the left was approximately a month ago. He states that he has swelling in that area that began 4 days ago. He describes an aching pain that is 2 out of 10 at worst and is pain-free currently. Is worsened by pushing on her coughing. Is relieved by rest. He denies any constitutional symptoms. No fever, chills, nausea, or vomiting. Physical Examination: Vitals: Stable. Afebrile. General: Well-nourished and well-developed. Head: Normocephalic atraumatic. Neck: Supple, no lymphadenopathy. No JVD. Nontender. Cardiovascular: Regular rate and rhythm. 2 out of 6 systolic murmur. Respiratory: No respiratory distress. Clear to auscultation bilaterally. Abdominal: Soft, nontender, distended with a large amount of ascites, normal bowel sounds. No guarding, rebound, or peritoneal signs. Back: Nontender. Extremities: Nontender, 2+ pitting edema lower extremities bilaterally. Skin: The left side of his abdomen there is approximately 3 cm area of slight erythema with a nickel sized fluctuant area in the center. There is no induration surrounding this. Neurologic: Alert and oriented ?3. Cranial nerves II through XII are intact. Normal strength and sensation. Psych: Normal affect. Test Results: CBC shows a white count of 13.3 with a segmented neutrophils of 79 and lymphocytes of 9. H&H is 7.2 and 21.6. Chem-7 shows a sodium 129, BUN of 22, calcium of 8.1. Lactic acid is negative. LFTs show total protein is 6.3, albumin 2.5, total bili 4.2, alk phos 215, AST of 49. INR is 1.8 and PTT is 41.9. Patient is not anticoagulated this is from his liver failure. Clinical Impression(s) from Imaging Studies Abdomen/Pelvis CT 09/22/19 19:51 IMPRESSION: * Interval increase in left anterior abdominal wall fluid with a 9.15 cm pocket now present, which could represent an abscess or seroma. Diffuse body wall edema is present. No visualized subcutaneous gas. * Large amount of abdominal ascites and cirrhotic liver * Colonic diverticulosis Electronically Signed: Yovani Boss MD at 21:28 EDT , Service support , Emergency Department Course and Treatment: Patient was given a dose of morphine, Zofran, and vancomycin IV. I reviewed the patient's prior CT in July. This clearly had started then. There is minimal inflammation surrounding it. There is no air in this. I suspect that is actually a seroma and not an abscess. The patient is coagulopathic and his initial hemoglobin is 7.2. I do not think that draining this in the emergency department is a good idea. In fact, I think the most reasonable course of action is to have ultrasound-guided drainage of this by Dr. Chamberlain. If it is a seroma then for no further treatment is necessary. If the drainage is purulent the patient can be discussed with surgery. I discussed this with Dr. Way. He feels that this is a reasonable plan. Treatment Plan: The patient was discussed with Dr. Roberson. He will be admitted to the hospital for further evaluation treatment. Disposition: Admitted in stable condition. Impression: 1. Abdominal wall fluid collection, likely seroma. 2. Anemia. 3. Cirrhosis. 4. Coagulopathy. This note was generated with [employer] software. It may contain incorrect words, spelling, and punctuation that were not noted in review of the chart prior to signing
--- NOTE | 2019-09-23 01:48 | PCM.RX.CS ---
Consult Pharmacy has been consulted to manage selected antiobiotic: Vancomycin Type of Consult: New start Labs: Sodium 129 mmol/L (136-145) L 09/22/19 20:10 Potassium 4.3 mmol/L (3.5-5.1) 09/22/19 20:10 Chloride 98 mmol/L (98-107) 09/22/19 20:10 Carbon Dioxide 27.0 mmol/L (21.0-32.0) 09/22/19 20:10 Anion Gap 4 (5-15) L 09/22/19 20:10 BUN 22 mg/dL (7-18) H 09/22/19 20:10 Creatinine 1.24 mg/dL (0.70-1.30) 09/22/19 20:10 Est GFR (MDRD) Af Amer 78 mL/min (>60) 09/22/19 20:10 Est GFR (MDRD) Non-Af 64 mL/min (>60) 09/22/19 20:10 BUN/Creatinine Ratio 17.7 RATIO (10-20) 09/22/19 20:10 Glucose 90 mg/dL (74-106) 09/22/19 20:10 Weight used for dosin.4 kg Estimated Creatinine Clearance: 84.5 Goal Trough: 15-20 mcg/mL Pharmacy Plan for Drug Dosing: Pharmacy Service will continue to monitor and adjust dosing as required. Medications Vancomycin HCl 1,750 mg/ (Sodium Chloride) 535 mls @ 250 mls/hr IV Q12H BELLA Discontinued Medications Vancomycin HCl 1,500 mg/ (Sodium Chloride) 530 mls @ 250 mls/hr IV X1 ONE Stop: 09/23/19 00:42 Last Admin: 09/22/19 23:12 Dose: 250 mls/hr Documented by: Follow-Up Labs: Trough Vancomycin Labs to be done on [date and time ordered]: 09/23 @ 5172
[2019-09-23 05:46] LABS: Absolute Lymphocyte Count 1.11 X10^3/uL (0.83-4.51); Absolute Neutrophil Count 8.6 X10^3/uL (2.0-7.7); Basophil# 0.06 X10^3/uL; Basophil% 0.5 % (0-1); Eosinophil# 0.32 X10^3/uL; Eosinophils% 2.9 % (0-5); Hematocrit 20.3 % (40-54); Lymphocyte # 1.11 X10^3/ul (4.0); Mean Corp Hgb Conc 34.5 g/dL (32-36); Mean Corpuscular Hgb 32.1 pg (27.0-32.0); Mean Corpuscular Volume 93.1 fL (80-94); Mean Platelet Vol. 11.8 fl (6.2-12.0); Monocyte# 0.91 X10^3/uL; Monocyte% 8.2 % (0-10); NRBC Flagged by Analyzer 0 % (0-5); Neutrophil # 8.56 X10^3/uL (2.7-7.7); Neutrophil % 76.9 % (47-70); POSITIVE COUNT YES; Platelet Count 91 K/mm3 (150-450); RBC Distribution Width CV 16.2 % (11.6-14.6); RBC Distribution Width SD 55.2 fl (35.1-43.9); Red Blood Count 2.18 M/mm3 (4.6-6.2); White Blood Count 11.1 K/mm3 (4.4-11.0)
[2019-09-23 06:00] LABS: Anion Gap 4 (5-15); BUN 22 mg/dL (7-18); BUN/Creat Ratio 18.2 RATIO (10-20); Calcium,Total 8.2 mg/dL (8.5-10.1); Chloride 102 mmol/L (98-107); Creatinine, Serum 1.21 mg/dL (0.70-1.30); EST Glomerular Filtration Rate 66 mL/min (>60); Est Glom Filt Rate - Afr Amer 80 mL/min (>60); Estimated Creatinine Clearance 74.33 ml/min; Glucose 107 mg/dL (74-106); Potassium 4.5 mmol/L (3.5-5.1); Sodium Level 134 mmol/L (136-145)
[2019-09-23 06:07] LABS: Differential Indicated SCAN CRITERIA MET
[2019-09-23 06:37] LABS: Differential Comment SCANNED
[2019-09-23 06:38] LABS: Platelet Estimate MOD DEC (ADEQ)
[2019-09-23] MEDS: Midodrine HCl 5 MG Tablet 10 MG PO ×3 (07:07→22:00)
--- NOTE | 2019-09-23 07:18 | CT_ITS ---
PROCEDURE: CT DIRECTED ABSCESS DRAINAGE, PERITONEAL DATE OF EXAMINATION: 09/23/2019. INDICATION: Male, 53 years old. Focal subcutaneous fluid collection overlying the left anterior abdominal wall. PHYSICIAN: Demar Chamberlain M.D. CONSENT: Written informed consent was obtained having explained the risks, benefits and alternatives in detail with the patient who accepted the risks and agreed to proceed. Laboratory review and clinical assessment was performed. RADIATION DOSAGE (If Supplied By Facility): CTDIvol = ( 34.5 ) mGy, DLP = ( 817.07 ) mGycm. Individualized dose optimization techniques were utilized. TECHNIQUE: CT sections were made through the abdomen and pelvis revealing an abscess in the lower anterior abdominal wall. The patient was in the supine position. The skin surface was prepped and draped in a sterile fashion. Puncture of this fluid collection was performed utilizing an 18-gauge biopsy needle following local anesthetic application. 80 cc of blood tinged purulent material was aspirated. The specimen was sent to the laboratory. CT/CT Guidance Abscess Drg w/Cath IMPRESSION: 1. CT directed drainage of a fluid collection using CT image guidance and image documentation as described. Electronically Signed: Demar Chamberlain, at 10:33 EDT , Service support ,
[2019-09-23] MEDS: 0.9% Saline Lock 10 ML Syringe IV ×3 (10:05→15:32)
--- NOTE | 2019-09-23 10:27 | NURSING ---
nurse report called to Dilcia devulcanizer charger, local medication only.
[2019-09-23] MEDS: Spironolactone 50 MG Tablet 150 MG PO (11:12)
[2019-09-23] MEDS: Thiamine Hydrochloride 100 MG Tablet PO (11:12)
[2019-09-23] MEDS: Folic Acid 1 MG Tablet PO (11:12)
[2019-09-23] MEDS: Lactulose 20 GM/30 ML UDC 10 GM PO (11:13)
[2019-09-23] MEDS: Furosemide 20 MG Tablet PO (11:13)
--- NOTE | 2019-09-23 12:55 | CASEMGMT ---
Addendum entered by Madonna Pinto 09/23/19 15:25: RN CM to room at this. Pt resting w/eyes closed and opened eyes when RN CM entered room. RN CM asked pt if now is a good time to complete assessment. Pt stated, I'm still sleeping. Pt made aware RN CM could return tomorrow. Original Note: RN CM APPLICATION SUPPORT ANALYST CM to room to meet with patient for initial transition planning/care coordination assessment. Pt resting in bed w/eyes closed in no distress and opened eyes when RN CM entered room. RN CM introduced self and role at [facility]. Pt voices understanding and consented to assessment initially and the following information was obtained from pt. PCP: Dr Jeffers Specialists: Dr Pineda--Hepatology @ , Dr Chamberlain--Interventional radiologist. Pt was getting paracentesis about 2 x's/week, but states he gets them about every 3 weeks now. Preferred Pharmacy: [facility] Insurance: [employer] Prescription Benefit: None per Teresa ASHER CM's, note on 07/28 when she spoke w/tech at [employer], although pt tells this RN ROLLY at this time that he gets his medications through [employer]. Pt made pt aware that [employer] informed RN CM in July that he does not have prescription coverage and that they use discount card. LNOK: Per this RN CM's assessment 07/26/19, pt has a 16-yr-old son. His parents are not living and he has no siblings, Ex-, Leonor, is only appraiser personal property listed at this time. Living Will/HPOA: Per notes, pt has been interested in completing AD and SW has spoken w/him and scheduled appts for same. Pt states he has not completed these yet, but still would like to do so. Pt initially had told this RN CM 07/26/19 that he would like his ex- to be his POA, but tells this RN CM at this time, that he does not think he wants to list her now. SW, Teresa Simpson, made aware that pt states he is still interested in completing AD. Pt then stated, Do we have to do this right now? RN CM asked pt when he would like RN CM to return, and pt stated, I don't know. I'm just not clear-headed right now. RN CM to attempt to complete remainder of assessment at a later time. Radha BSN RN CM
--- NOTE | 2019-09-23 14:17 | PN_ITS ---
Patient Problems: Active and Suspected Problems Abscess (Acute) Reason for Visit: abdominal abscess Subjective: Tolerated drainage of abdominal fluid collection. Wishes to go home. Vitals/I&O's: Vital Signs Temp Pulse Resp BP Pulse Ox 36.7 C 88 18 102/82 H 95 09/23/19 08:25 09/23/19 09:06 09/23/19 09:06 09/23/19 09:06 09/23/19 08:25 Oxygen Delivery Method [2] Room Air Oxygen Delivery Method [1 ( Room Air Initial Baseline)] Oxygen Delivery Method Room Air Weight: 106.4 kg Body Mass Index (BMI) 32.7 Intake and Output for Last 24 Hours 09/21/19 09/22/19 09/23/19 23:59 23:59 23:59 Intake Total 560 / 560 Output Total 1200 / 1200 Balance -640 / -640 General: Alert, No apparent distress HEENT: Atraumatic, Normocephalic Oral: Moist Mucosa, No Gingival or Mucosal Lesions/ Ulcerations Neck: No Nodes, Thyroid Normal Size and Texture Lungs: Clear to auscultation, Normal air movement, No rhonchi, No wheeze Cardiovascular: Regular rate, Regular Rhythm, Normal S1, Normal S2, No murmurs Abdomen: Non Tender, Distended Extremities: No edema, No Calf Tenderness Skin: - - slight erythema and induration of skin on left side of abdomen. Psych/Mental Status: Normal Affect, Appropriate Laboratory Results 09/22/19 20:10: WBC 13.3 H, RBC 2.31 L, Hgb 7.2 L, Hct 21.6 L, MCV 93.5, MCH 31.2, MCHC 33.3, RDW Std Deviation 55.2 H, RDW Coeff of Pravin 16.2 H, Plt Count 103 L, MPV 10.1, Immature Gran % (Auto) 2.500 H, Neut % (Auto) 78.7 H, Lymph % (Auto) 8.8 L, [place] % (Auto) 7.6, Eos % (Auto) 2.0, Baso % (Auto) 0.4, Absolute Neuts (auto) 10.5 H, Absolute Lymphs (auto) 1.18, Nucleated RBC % 0 09/22/19 20:10: PT 20.4 H, INR 1.8, APTT 41.0 H 09/22/19 20:10: Sodium 129 L, Potassium 4.3, Chloride 98, Carbon Dioxide 27.0, Anion Gap 4 L, BUN 22 H, Creatinine 1.24, Estim Creat Clear Calc 72.53, Est GFR (MDRD) Af Amer 78, Est GFR (MDRD) Non-Af 64, BUN/Creatinine Ratio 17.7, Glucose 90, Calcium 8.1 L, Total Bilirubin 4.20 H, AST 49 H, ALT 25, Alkaline Phosphatase 215 H, Total Protein 6.3 L, Albumin 2.5 L, Globulin 3.8, Albumin/Globulin Ratio 0.7 L 09/22/19 21:50: Lactic Acid 1.2 09/22/19 21:50: Blood Type O POSITIVE, Antibody Screen NEGATIVE 09/23/19 05:24: Sodium 134 L, Potassium 4.5, Chloride 102, Carbon Dioxide 28.0, Anion Gap 4 L, BUN 22 H, Creatinine 1.21, Estim Creat Clear Calc 74.33, Est GFR (MDRD) Af Amer 80, Est GFR (MDRD) Non-Af 66, BUN/Creatinine Ratio 18.2, Glucose 107 H, Calcium 8.2 L 09/23/19 05:24: WBC 11.1 H, RBC 2.18 L, Hgb 7.0 L, Hct 20.3 L, MCV 93.1, MCH 32.1 H, MCHC 34.5, RDW Std Deviation 55.2 H, RDW Coeff of Pravin 16.2 H, Plt Count 91 L, MPV 11.8, Immature Gran % (Auto) 1.500 H, Neut % (Auto) 76.9 H, Lymph % (Auto) 10.0 L, [place] % (Auto) 8.2, Eos % (Auto) 2.9, Baso % (Auto) 0.5, Absolute Neuts (auto) 8.6 H, Absolute Lymphs (auto) 1.11, Nucleated RBC % 0, Differential Comment SCANNED, Platelet Estimate MOD 09/23/19 10:36: Fluid Source Cancelled, Fluid Color Cancelled, Fluid Appearance Cancelled, Fluid WBC Cancelled, Fluid RBC Cancelled, Fluid Tot Cell Count Cancelled, Fld Polynuclear WBCs # Cancelled, Fld Polynuclear WBCs % Cancelled, Fluid Mononuclear WBCs Cancelled, Fld Mononuclear WBCs % Cancelled, Fluid Neutrophils Cancelled, Fluid Lymphocytes Cancelled, Fluid Monocytes Cancelled, Fluid Plasma Cells Cancelled, Fluid Macrophages Cancelled, Fld Mesothelial Cells Cancelled, Fluid Other Cells Cancelled, Fl Pathologist Comment Cancelled, Fluid Comment 2 Cancelled Current Medications Folic Acid (Folic Acid) 1 mg PO DAILY@0800 [facility] Last Admin: 09/23/19 11:12 Dose: 1 mg Documented by: Furosemide (Lasix) 20 mg PO DAILY@1200 [facility] Last Admin: 09/23/19 11:13 Dose: 20 mg Documented by: Hydroxyzine Pamoate (Vistaril Pamoate Capsule) 25 mg PO 4X/DAY PRN PRN PRN Reason: ITCHING Vancomycin IV Pharmacy to Dose (1 ea/ Sodium Chloride) 500 mls @ 250 mls/hr IV X1 PRN; Protocol PRN Reason: Rx to Dose Vancomycin HCl 1,750 mg/ (Sodium Chloride) 535 mls @ 250 mls/hr IV Q12H [facility] Last Admin: 09/23/19 11:20 Dose: 250 mls/hr Documented by: Sodium Chloride () 250 mls @ 15 mls/hr IV .[id number] PRN PRN Reason: Saline Flush Sodium Chloride () 250 mls @ 15 mls/hr IV .[id number] PRN PRN Reason: Additional IVPB Infusion Lactulose (Chronulac, Cephulac) 10 gm PO DAILY [facility] Last Admin: 09/23/19 11:13 Dose: 10 gm Documented by: Midodrine (Proamatine) 10 mg PO TID [facility] Last Admin: 09/23/19 13:50 Dose: 10 mg Documented by: Morphine Sulfate () 2 mg IV Q3H PRN PRN PRN Reason: Pain Score 6-10/10 Ondansetron HCl (Zofran) 4 mg IV Q8H PRN PRN PRN Reason: NAUSEA/VOMITING Sodium Chloride () 10 - 40 ml IV UD PRN PRN Reason: SALINE FLUSH Last Admin: 09/23/19 11:13 Dose: 10 ml Documented by: Spironolactone (Aldactone) 150 mg PO DAILY [facility] Last Admin: 09/23/19 11:12 Dose: 150 mg Documented by: [facility]) [facility] Last Admin: 08/04/20 11:12 Dose: 100 mg Documented by: Medical Necessity - Tobacco Use Smoking Status: Current every day smoker Tobacco Use: Cigarettes Assessment/Plan All Active Problems Bacteremia (Resolved) Abscess (Acute) 1. abdominal wall cellulitis and abscess * drainage performed 09/22 * follow up cultures * continue vancomycin * add pip/tazo 2. ascites * 2/2 cirrhosis * no clinical evidence of SBP at this time * continue spironolactone 150 * resume furosemide 40 BID * no need for paracentesis at this time 3. Cirrhosis * follows with gastroenterology as outpt * MELD 20 = 3 month mortality of 19.6% * Child-Tucker C 4. Anemia, chronic * monitor * stable * no transfusion at this time. 5. VTE proph: SCDs Inpatient E&M: 56503 Subs Hosp L2
[2019-09-23] MEDS: Furosemide 40 MG Tablet PO (17:44)
[2019-09-24] VITALS (8 sets, daily range): BP systolic 99–114; BP diastolic 42–68; PULSE 74–80; RESP 18–20; TEMP 36.3–37.3; O2SAT 93–100
[2019-09-24 06:19] LABS: Absolute Lymphocyte Count 0.84 X10^3/uL (0.83-4.51); Absolute Neutrophil Count 7.4 X10^3/uL (2.0-7.7); Basophil# 0.06 X10^3/uL; Basophil% 0.6 % (0-1); Eosinophil# 0.35 X10^3/uL; Eosinophils% 3.7 % (0-5); Hematocrit 19.1 % (40-54); Hemoglobin 6.5 g/dL (13.0-16.5); Lymphocyte # 0.84 X10^3/ul (4.0); Lymphocyte % 8.8 % (19-41); Mean Corpuscular Hgb 32.2 pg (27.0-32.0); Mean Corpuscular Volume 94.6 fL (80-94); Mean Platelet Vol. 11.4 fl (6.2-12.0); Monocyte# 0.75 X10^3/uL; Monocyte% 7.9 % (0-10); NRBC Flagged by Analyzer 0 % (0-5); Neutrophil # 7.42 X10^3/uL (2.7-7.7); Neutrophil % 77.8 % (47-70); POSITIVE COUNT YES; Platelet Count 83 K/mm3 (150-450); RBC Distribution Width CV 16.2 % (11.6-14.6); RBC Distribution Width SD 55.9 fl (35.1-43.9); Red Blood Count 2.02 M/mm3 (4.6-6.2); White Blood Count 9.5 K/mm3 (4.4-11.0)
[2019-09-24] MEDS: Midodrine HCl 5 MG Tablet 10 MG PO ×3 (06:36→21:20)
[2019-09-24 06:38] LABS: Anion Gap 5 (5-15); BUN 21 mg/dL (7-18); BUN/Creat Ratio 19.8 RATIO (10-20); Calcium,Total 7.9 mg/dL (8.5-10.1); Chloride 102 mmol/L (98-107); Creatinine, Serum 1.06 mg/dL (0.70-1.30); EST Glomerular Filtration Rate 77 mL/min (>60); Est Glom Filt Rate - Afr Amer 93 mL/min (>60); Estimated Creatinine Clearance 84.85 ml/min; Glucose 79 mg/dL (74-106); Potassium 4.5 mmol/L (3.5-5.1); Sodium Level 133 mmol/L (136-145)
[2019-09-24] MEDS: Spironolactone 50 MG Tablet 150 MG PO (08:36)
[2019-09-24] MEDS: Thiamine Hydrochloride 100 MG Tablet PO (08:37)
[2019-09-24] MEDS: Lactulose 20 GM/30 ML UDC 10 GM PO (08:37)
[2019-09-24] MEDS: Folic Acid 1 MG Tablet PO (08:37)
[2019-09-24] MEDS: Furosemide 40 MG Tablet PO ×2 (08:37→17:50)
--- NOTE | 2019-09-24 11:05 | CASEMGMT ---
SW attempted to meet with patient to see if he would like to complete advance directives. He has had appts in the past with SW to complete documents, but has not been able to make it due to being rehospitalized. SW was also going to talk with him about Palliative Care. However, SW went into patient's room and his head was partially covered up. He did open his eyes when SW said his name. SW introduced self and started to talk about healthcare POA and LW when patient said, Man I'm sleeping and closed his eyes. SW said we can try back. Pam CHAUDRHY SIGNS AND DISPLAYS SALES REPRESENTATIVE
[2019-09-24 11:09] LABS: Vancomycin, Trough Level 27.3 ug/mL (5.0-15.0)
--- NOTE | 2019-09-24 11:28 | PCM.RX.CS ---
Consult Pharmacy has been consulted to manage selected antiobiotic: Vancomycin Type of Consult: Follow-up Suspected Infection: Other - ABSCESS Labs: Sodium 133 mmol/L (136-145) L 09/24/19 05:48 Potassium 4.5 mmol/L (3.5-5.1) 09/24/19 05:48 Chloride 102 mmol/L (98-107) 09/24/19 05:48 Carbon Dioxide 26.0 mmol/L (21.0-32.0) 09/24/19 05:48 Anion Gap 5 (5-15) 09/24/19 05:48 BUN 21 mg/dL (7-18) H 09/24/19 05:48 Creatinine 1.06 mg/dL (0.70-1.30) 09/24/19 05:48 Est GFR (MDRD) Af Amer 93 mL/min (>60) 09/24/19 05:48 Est GFR (MDRD) Non-Af 77 mL/min (>60) 09/24/19 05:48 BUN/Creatinine Ratio 19.8 RATIO (10-20) 09/24/19 05:48 Glucose 79 mg/dL (74-106) 09/24/19 05:48 Vancomycin Trough 27.3 ug/mL (5.0-15.0) H 09/24/19 10:30 Microbiology: Microbiology 09/23/19 08:04 Abs - Abdominal Wound Culture - Preliminary Staphylococcus aureus Goal Trough: 15-20 mcg/mL Pharmacy Plan for Drug Dosing: VANCOMYCIN LEVEL RECEIVED Current Vancomycin Dose: 1750MG Q12 Number of Doses Received: 2 OF 1750MG AND 1 1500MG Vancomycin Level: 27.3 MG/DL Hours Since Last Dose: ~12 HOURS AND 15 MINUTES Renal Function: 1.06 (CRCL 98.8ML/MIN USING ADJ BW OF 87.7KG) Renal Function Trend: IMPROVED Lab/Micro: WOUND CX WITH PRELIMINARY STAPH AUREUS Vancomycin Plan/Comments: HOLD VANCOMYCIN AND GET RANDOM LEVEL TOMORROW. I TRIED TO SPEAK TO NURSE AT 11:15 TO HOLD VANCO BUT COULD NOT GET TROUGH. CALLED BACK AT 11:25 AND STILL COULDN'T GET THROUGH SO I ASKED CHARGE NURSE TO STOP BAG THAT STARTED INFUSING AT 11:20 SO PT LIKELY GOT A SMALL DOSE. Pharmacy Service will continue to monitor and adjust dosing as required. Labs to be done on [date and time ordered]: 09/25/19 @ 1220
--- NOTE | 2019-09-24 11:30 | NURSING ---
vancomycin stopped at pharmacist's request d/t through level.
--- NOTE | 2019-09-24 13:05 | CASEMGMT ---
RN ROLLY Face to Face with patient for initial transition planning/care coordination assessment. RN CM introduced self and role at [facility]. Patient lying in bed, alert and oriented. Patient willing to participate in assessment and is able to answer all questions appropriately. Care providers, pharmacy, and demographics verified. Patient wishes to discharge home, denies need for home health at this time. Patient states he has no further needs or concerns at this time. CM to follow for discharge planning needs that may arise. PCP: [facility] Specialists: Miriam, liver specialist; Lavinia, process safety engineer in [place] Preferred Pharmacy: [facility] Insurance: [employer] Prescription Benefit: yes Living Will/HPOA: none LNOK: daughter, Living Arrangements: Patient lives alone in a house with bed and bath on main level. Patient states he is independent Transportation: self DME/HHC: Patient denies DME or previous HHC. Disposition Plan: Patient to discharge home with family support and follow-up plans in place. Teresa KEITA, RN, CM
--- NOTE | 2019-09-24 13:15 | PCM.PN.HOSP ---
Patient Problems: Active and Suspected Problems Abscess (Acute) Reason for Visit: abdominal wall cellulitis Subjective: no new complaints. Vitals/I&O's: Vital Signs Temp Pulse Resp BP Pulse Ox 36.8 C 75 18 103/58 L 97 09/24/19 08:33 09/24/19 08:33 09/24/19 08:33 09/24/19 08:33 09/24/19 08:33 Oxygen Delivery Method [2] Room Air Oxygen Delivery Method [1 ( Room Air Initial Baseline)] Oxygen Delivery Method Room Air Weight: 106.4 kg Body Mass Index (BMI) 32.7 Intake and Output for Last 24 Hours 09/22/19 09/23/19 09/24/19 23:59 23:59 23:59 Intake Total 1545.75 / 1545.75 681.92 / 681.92 Output Total 1999 Balance -454.25 / -454.25 681.92 / 681.92 General: Alert, No apparent distress HEENT: Atraumatic, Normocephalic Oral: Moist Mucosa, No Gingival or Mucosal Lesions/ Ulcerations Lungs: Clear to auscultation, Normal air movement, No rhonchi, No wheeze, No rales Cardiovascular: Regular rate, Regular Rhythm, Normal S1, Normal S2, No murmurs Abdomen: Distended Extremities: No Calf Tenderness Skin: - - decreased erythema of LLQ. protruding skin in region unable to express fluid Musculoskeletal: No Tenderness to Palpation of Joints or Extremities, No Muscle Wasting Psych/Mental Status: Normal Affect, Appropriate Microbiology Past 72 Hours 09/23/19 08:04 Abs - Abdominal Gram Stain - Final 09/23/19 08:04 Abs - Abdominal Wound Culture - Preliminary Staphylococcus aureus Laboratory Results 09/24/19 05:48: WBC 9.5, RBC 2.02 L, Hgb 6.5 L, Hct 19.1 L, MCV 94.6 H, MCH 32.2 H, MCHC 34.0, RDW Std Deviation 55.9 H, RDW Coeff of Pravin 16.2 H, Plt Count 83 L, MPV 11.4, Immature Gran % (Auto) 1.200 H, Neut % (Auto) 77.8 H, Lymph % (Auto) 8.8 L, [place] % (Auto) 7.9, Eos % (Auto) 3.7, Baso % (Auto) 0.6, Absolute Neuts (auto) 7.4, Absolute Lymphs (auto) 0.84, Nucleated RBC % 0 09/24/19 05:48: Sodium 133 L, Potassium 4.5, Chloride 102, Carbon Dioxide 26.0, Anion Gap 5, BUN 21 H, Creatinine 1.06, Estim Creat Clear Calc 84.85, Est GFR (MDRD) Af Amer 93, Est GFR (MDRD) Non-Af 77, BUN/Creatinine Ratio 19.8, Glucose 79, Calcium 7.9 L 09/24/19 10:30: Vancomycin Trough 27.3 H Current Medications Folic Acid (Folic Acid) 1 mg PO DAILY@0800 [facility] Last Admin: 09/24/19 08:37 Dose: 1 mg Documented by: Furosemide (Lasix) 40 mg PO BID@1000,1800 [facility] Last Admin: 09/24/19 08:37 Dose: 40 mg Documented by: Hydroxyzine Pamoate (Vistaril Pamoate Capsule) 25 mg PO 4X/DAY PRN PRN PRN Reason: ITCHING Vancomycin IV Pharmacy to Dose (1 ea/ Sodium Chloride) 500 mls @ 250 mls/hr IV X1 PRN; Protocol PRN Reason: Rx to Dose Sodium Chloride () 250 mls @ 15 mls/hr IV .[id number] PRN PRN Reason: Saline Flush Last Infusion: 09/24/19 11:30 Dose: 15 mls/hr Documented by: Sodium Chloride () 250 mls @ 15 mls/hr IV .[id number] PRN PRN Reason: Additional IVPB Infusion Piperacillin Sod/Tazobactam (Sod 3.375 gm/ Sodium Chloride) 50 mls @ 12.5 mls/hr IV Q8 [facility] Last Infusion: 09/24/19 11:00 Dose: Infused Documented by: Lactulose (Chronulac, Cephulac) 10 gm PO DAILY [facility] Last Admin: 09/24/19 08:37 Dose: 10 gm Documented by: Midodrine (Proamatine) 10 mg PO TID [facility] Last Admin: 09/24/19 06:36 Dose: 10 mg Documented by: Morphine Sulfate () 2 mg IV Q3H PRN PRN PRN Reason: Pain Score 6-10/10 Ondansetron HCl (Zofran) 4 mg IV Q8H PRN PRN PRN Reason: NAUSEA/VOMITING Sodium Chloride () 10 - 40 ml IV UD PRN PRN Reason: SALINE FLUSH Last Admin: 09/23/19 15:32 Dose: 10 ml Documented by: Spironolactone (Aldactone) 150 mg PO DAILY [facility] Last Admin: 09/24/19 08:36 Dose: 150 mg Documented by: Thi[facility]) [facility] Last Admin: 09/24/19 08:37 Dose: 100 mg Documented by: Medical Necessity - Tobacco Use Smoking Status: Current every day smoker Tobacco Use: Cigarettes Assessment/Plan All Active Problems Bacteremia (Resolved) Abscess (Acute) 1. abdominal wall cellulitis and abscess drainage performed 09/22 noted to be purulent and blood tinged culture showing staph continue vancomycin dc pip/tazo YANIQUE Parsons, concern it could be communicating with ascites and advised against open surgical drainage and recommended IR repeat eval +/- drain. YANIQUE Chamberlain, unsure at present if amenable to drain, but we could rescan to see if it could be done. 2. ascites 2/2 cirrhosis no clinical evidence of SBP at this time continue spironolactone 150 resume furosemide 40 BID no need for paracentesis at this time no clinical evidence of SBP at this time. 3. Cirrhosis follows with gastroenterology as outpt MELD 20 = 3 month mortality of 19.6% Child-Tucker C 4. Anemia, chronic monitor stable dropped down to 6.5, transfuse 1 unit. 5. VTE proph: SCDs Inpatient E&M: 86855 [facility] Hosp L3
--- NOTE | 2019-09-24 13:29 | CT_ITS ---
STUDY: CT ABDOMEN AND PELVIS WITHOUT CONTRAST REASON FOR EXAM: Male, 53 years old. LEFT ABDOMINAL WALL ABSCESS DRAINED YESTERDAY. RE-CHECK. RADIATION DOSAGE (If Supplied By Facility): CTDIvol = ( 19.18 ) mGy, DLP = ( 1035.13 ) mGycm TECHNIQUE: Transaxial images were obtained from the dome of the diaphragm to the symphysis pubis without oral contrast, and without intravenous contrast. Sagittal and coronal images were reconstructed. Individualized dose optimization techniques were used for this CT. COMPARISON: Comparison is made with prior examination 09/22/2019. FINDINGS: Small left pleural effusion with left basilar atelectasis. The visualized portions of the heart are within normal limits. Diffuse ascites. There is a diffuse contour abnormality of the liver consistent with cirrhotic changes. There are multiple gallstones. Normal spleen. Normal pancreas. Normal bilateral adrenal glands. Normal right kidney. Normal left kidney. Normal visualized stomach. Normal small intestine. There are multiple colonic diverticula consistent with diverticulosis. The appendix is visualized and appears normal. Normal abdominal aorta. Normal inferior vena cava. There is borderline retroperitoneal lymphadenopathy with enlarged nodes no greater than 10mm in the short axis diameter. Normal urinary bladder. There is recurrence of a 4.9 cm x 8.2 cm x 6.5 cm fluid collection in the subcutaneous tissues in the anterior abdominal wall lateral to the umbilicus on the left side. Normal osseous structures. CT/Abdomen/Pelvis without Cont IMPRESSION: Reticulation of the fluid collection in the left lateral anterior abdominal wall. The remainder the examination is unchanged. Electronically Signed: Demar Chamberlain, at 15:03 EDT , Service support ,
--- NOTE | 2019-09-24 17:01 | PCA ---
The patient has been offered meals and I have offered throughout the day on ordering his meals and he refuses everytime.
[2019-09-24] MEDS: Phytonadione (Vit K1) 5 MG TABLET PO (17:50)
[2019-09-24] MEDS: 0.9% Saline Lock 10 ML Syringe IV (18:36)
[2019-09-25] VITALS (14 sets, daily range): BP systolic 95–116; BP diastolic 43–65; PULSE 72–76; RESP 13–18; TEMP 36.6–36.9; O2SAT 96–100
[2019-09-25] MEDS: Midodrine HCl 5 MG Tablet 10 MG PO ×3 (05:15→21:13)
[2019-09-25 06:18] LABS: Absolute Lymphocyte Count 0.96 X10^3/uL (0.83-4.51); Absolute Neutrophil Count 7.4 X10^3/uL (2.0-7.7); Basophil# 0.05 X10^3/uL; Basophil% 0.5 % (0-1); Eosinophil# 0.22 X10^3/uL; Eosinophils% 2.3 % (0-5); Hematocrit 21.7 % (40-54); Hemoglobin 7.2 g/dL (13.0-16.5); Lymphocyte # 0.96 X10^3/ul (4.0); Lymphocyte % 10.2 % (19-41); Mean Corp Hgb Conc 33.2 g/dL (32-36); Mean Corpuscular Hgb 30.6 pg (27.0-32.0); Mean Corpuscular Volume 92.3 fL (80-94); Mean Platelet Vol. 10.8 fl (6.2-12.0); Monocyte% 7.4 % (0-10); NRBC Flagged by Analyzer 0 % (0-5); Neutrophil # 7.39 X10^3/uL (2.7-7.7); Neutrophil % 78.6 % (47-70); POSITIVE COUNT YES; Platelet Count 87 K/mm3 (150-450); RBC Distribution Width CV 17.2 % (11.6-14.6); RBC Distribution Width SD 57.1 fl (35.1-43.9); Red Blood Count 2.35 M/mm3 (4.6-6.2); White Blood Count 9.4 K/mm3 (4.4-11.0)
[2019-09-25 06:37] LABS: Anion Gap 6 (5-15); BUN 25 mg/dL (7-18); BUN/Creat Ratio 21.6 RATIO (10-20); Chloride 102 mmol/L (98-107); Creatinine, Serum 1.16 mg/dL (0.70-1.30); EST Glomerular Filtration Rate 70 mL/min (>60); Est Glom Filt Rate - Afr Amer 84 mL/min (>60); Estimated Creatinine Clearance 77.54 ml/min; Glucose 73 mg/dL (74-106); Potassium 4.3 mmol/L (3.5-5.1); Sodium Level 134 mmol/L (136-145)
[2019-09-25] MEDS: Morphine 2 MG/ML Syringe IV (07:28)
--- NOTE | 2019-09-25 07:59 | NURSING ---
Was asked to assess the left abdomen where pt had a recent paracentesis. Pt has a raised area approx 1cm x 1cm that is draining a salmon colored milky drainage. pt has been draining through dressings frequently. this nurse applied a pediatric ostomy appliance to keep the drainage contained and keep off the skin. pt is scheduled for a CT guided drainage of this abscess today. can reapply an appliance if needed after the procedure. pt tolerated well. will monitor.
--- NOTE | 2019-09-25 09:00 | CT_ITS ---
PROCEDURE: CT DIRECTED ABSCESS DRAINAGE, PERITONEAL DATE OF EXAMINATION: 09/25/2019. INDICATION: Male, 53 years old. Recurrent anterior abdominal wall subcutaneous abscess collection. PHYSICIAN: Demar Chamberlain M.D. CONSENT: Written informed consent was obtained having explained the risks, benefits and alternatives in detail with the patient who accepted the risks and agreed to proceed. Laboratory review and clinical assessment was performed. CONSCIOUS SEDATION PROTOCOL: The Drugs used were: 2 mg Versed, IV., and 50 mcg Fentanyl, IV. The sedation time was: 10 minutes. Conscious sedation was started at 9:20 AM and terminated at 9:30 AM. The conscious sedation protocol was independently monitored. RADIATION DOSAGE (If Supplied By Facility): CTDIvol = ( 14.44 ) mGy, DLP = ( 769.5 ) mGycm. Individualized dose optimization techniques were utilized. TECHNIQUE: CT sections were made through the abdomen and pelvis revealing an abscess in the left anterior abdominal wall.. The skin surface was prepped and draped in a sterile fashion. Puncture of this collection was performed initially with a 8 [place] catheter and fluid was aspirated. Drainage catheter was then inserted into the collection and formed into position. Additional fluid was aspirated for a total of approximately 60 cc of cloudy red fluid. The catheter was sutured into position to allow for continued drainage. Followup CT sections reveals good position of the catheter. CT/CT Guidance Abscess Drg w/Cath IMPRESSION: 1. CT directed drainage of a fluid collection using CT image guidance and image documentation as described. 2. Conscious Sedation protocol utilized with independent monitoring Electronically Signed: Demar Chamberlain, at 10:37 EDT , Service support ,
[2019-09-25] MEDS: Midazolam 2 MG/2 ML Syringe IV ×2 (09:20→09:28)
[2019-09-25] MEDS: fentaNYL 100 MCG/2 ML Ampul IV ×2 (09:22→09:28)
[2019-09-25] MEDS: Spironolactone 50 MG Tablet 150 MG PO (11:33)
[2019-09-25] MEDS: Thiamine Hydrochloride 100 MG Tablet PO (11:33)
[2019-09-25] MEDS: Folic Acid 1 MG Tablet PO (11:33)
[2019-09-25] MEDS: Lactulose 20 GM/30 ML UDC 10 GM PO (11:34)
[2019-09-25] MEDS: oxyCODONE 5 MG Tablet PO ×2 (11:34→15:44)
[2019-09-25] MEDS: Furosemide 40 MG Tablet PO ×2 (11:34→16:59)
--- NOTE | 2019-09-25 13:13 | PCM.RX.CS ---
Consult Pharmacy has been consulted to manage selected antiobiotic: Vancomycin Labs: Sodium 134 mmol/L (136-145) L 09/25/19 05:30 Potassium 4.3 mmol/L (3.5-5.1) 09/25/19 05:30 Chloride 102 mmol/L (98-107) 09/25/19 05:30 Carbon Dioxide 26.0 mmol/L (21.0-32.0) 09/25/19 05:30 Anion Gap 6 (5-15) 09/25/19 05:30 BUN 25 mg/dL (7-18) H 09/25/19 05:30 Creatinine 1.16 mg/dL (0.70-1.30) 09/25/19 05:30 Est GFR (MDRD) Af Amer 84 mL/min (>60) 09/25/19 05:30 Est GFR (MDRD) Non-Af 70 mL/min (>60) 09/25/19 05:30 BUN/Creatinine Ratio 21.6 RATIO (10-20) H 09/25/19 05:30 Glucose 73 mg/dL (74-106) L 09/25/19 05:30 Vancomycin Trough 27.3 ug/mL (5.0-15.0) H 09/24/19 10:30 Random Vancomycin 17.0 ug/mL (0.0-15.0) H 09/25/19 11:04 Microbiology: Microbiology 09/23/19 08:04 Abs - Abdominal Gram Stain - Final 09/23/19 08:04 Abs - Abdominal Wound Culture - Final Meth. resistant Staph. aureus 09/23/19 08:04 Abs - Abdominal Anaerobic Culture - Final No anaerobic bacteria isolated. Goal Trough: 15-20 mcg/mL Pharmacy Plan for Drug Dosing: VANCOMYCIN LEVEL RECEIVED Current Vancomycin Dose: ON HOLD (Previously 1750mg IV Q12hr) Number of Doses Received: Last dose 09/23 ~1120 (Dose stopped early on 09/24/19, see previous note. Pt likely got small amount of that dose). Vancomycin Level: 17 Hours Since Last Dose: ~24hr (from last time dose hung, but infusion not completed) Renal Function: 1.16 Renal Function Trend: Slight increase in SCr Lab/Micro: Abdominal WCx = MRSA Vancomycin Plan/Comments: Restart vancomycin. Will start 1750mg IV Q24hr to be started this afternoon. Will obtain a trough prior to 3rd dose of new regimen. Pending Level: 09/27/19 @5150 Pharmacy Service will continue to monitor and adjust dosing as required.
--- NOTE | 2019-09-25 14:07 | PN_ITS ---
Patient Problems: Active and Suspected Problems Abscess (Acute) Reason for Visit: abdominal wall abscess. Subjective: Had drainage come out of wound and superficial drainage bag placed. This afternoon had drain placed. Afterwards had significant pain requiring pain medication. Vitals/I&O's: Vital Signs Temp Pulse Resp BP Pulse Ox 36.6 C 72 18 112/61 96 09/25/19 11:24 09/25/19 11:37 09/25/19 11:24 09/25/19 11:37 09/25/19 12:54 Oxygen Flow Rate (L/min) [3] 2 Oxygen Flow Rate (L/min) [2] 2 Oxygen Flow Rate (L/min) 2 Oxygen Delivery Method [3] Nasal Cannula Oxygen Delivery Method [2] Nasal Cannula Oxygen Delivery Method [1 ( Room Air Initial Baseline)] Oxygen Delivery Method Room Air Weight: 106.4 kg Body Mass Index (BMI) 32.7 Intake and Output for Last 24 Hours 09/23/19 09/24/19 09/25/19 23:59 23:59 23:59 Intake Total 1545.75 / 1545.75 1356.92 / 1356.92 85 / 85 Output Total 1999 2350 / 2350 1500 / 1500 Balance -454.25 / -454.25 -993.08 / -993.08 -1415 / -1415 General: Alert, No apparent distress HEENT: Atraumatic, Normocephalic Oral: Moist Mucosa, No Gingival or Mucosal Lesions/ Ulcerations Neck: No Nodes, Thyroid Normal Size and Texture Lungs: Clear to auscultation, Normal air movement, No rhonchi, No wheeze, No rales Cardiovascular: Regular rate, Regular Rhythm, Normal S1, Normal S2, No murmurs Abdomen: Bowel Sounds Present, Soft, Distended, - - drain in LLQ with sanginous drainage Extremities: No clubbing, No edema Skin: No rashes, No breakdown Musculoskeletal: No Tenderness to Palpation of Joints or Extremities, No Muscle Wasting Psych/Mental Status: Normal Affect, Appropriate Microbiology Past 72 Hours 09/23/19 08:04 Abs - Abdominal Gram Stain - Final 09/23/19 08:04 Abs - Abdominal Wound Culture - Final Meth. resistant Staph. aureus 09/23/19 08:04 Abs - Abdominal Anaerobic Culture - Final No anaerobic bacteria isolated. Laboratory Results 09/22/19 21:50: Crossmatch See Detail 09/25/19 05:30: WBC 9.4, RBC 2.35 L, Hgb 7.2 L, Hct 21.7 L, MCV 92.3, MCH 30.6, MCHC 33.2, RDW Std Deviation 57.1 H, RDW Coeff of Pravin 17.2 H, Plt Count 87 L, MPV 10.8, Immature Gran % (Auto) 1.000 H, Neut % (Auto) 78.6 H, Lymph % (Auto) 10.2 L, [place] % (Auto) 7.4, Eos % (Auto) 2.3, Baso % (Auto) 0.5, Absolute Neuts (auto) 7.4, Absolute Lymphs (auto) 0.96, Nucleated RBC % 0 09/25/19 05:30: Sodium 134 L, Potassium 4.3, Chloride 102, Carbon Dioxide 26.0, Anion Gap 6, BUN 25 H, Creatinine 1.16, Estim Creat Clear Calc 77.54, Est GFR (MDRD) Af Amer 84, Est GFR (MDRD) Non-Af 70, BUN/Creatinine Ratio 21.6 H, Glucose 73 L, Calcium 8.0 L 09/25/19 11:04: Random Vancomycin 17.0 H Current Medications Folic Acid (Folic Acid) 1 mg PO DAILY@0800 [facility] Last Admin: 09/25/19 11:33 Dose: 1 mg Documented by: Furosemide (Lasix) 40 mg PO BID@1000,1800 [facility] Last Admin: 09/25/19 11:34 Dose: 40 mg Documented by: Hydroxyzine Pamoate (Vistaril Pamoate Capsule) 25 mg PO 4X/DAY PRN PRN PRN Reason: ITCHING Vancomycin IV Pharmacy to Dose (1 ea/ Sodium Chloride) 500 mls @ 250 mls/hr IV X1 PRN; Protocol PRN Reason: Rx to Dose Sodium Chloride () 250 mls @ 15 mls/hr IV .[id number] PRN PRN Reason: Saline Flush Last Infusion: 09/24/19 16:30 Dose: 0 mls/hr Documented by: Sodium Chloride () 250 mls @ 15 mls/hr IV .[id number] PRN PRN Reason: Additional IVPB Infusion Sodium Chloride () 500 mls @ 15 mls/hr IV PRN PRN PRN Reason: Blood Transfusion Sodium Chloride () 500 mls @ 0 mls/hr IV .Q0M [facility] Stop: 09/25/19 23:59 Last Infusion: 09/25/19 10:20 Dose: Infused Documented by: Vancomycin HCl 1,750 mg/ (Sodium Chloride) 535 mls @ 250 mls/hr IV Q24H [facility] Lactulose (Chronulac, Cephulac) 10 gm PO DAILY [facility] Last Admin: 09/25/19 11:34 Dose: 10 gm Documented by: Midodrine (Proamatine) 10 mg PO TID [facility] Last Admin: 09/25/19 05:15 Dose: 10 mg Documented by: Morphine Sulfate () 2 mg IV Q3H PRN PRN PRN Reason: Pain Score 6-1010 Last Admin: 09/25/19 07:28 Dose: 2 mg Documented by: Ondansetron HCl (Zofran) 4 mg IV Q8H PRN PRN PRN Reason: NAUSEA/VOMITING Oxycodone HCl (Oxyir) 5 mg PO Q4H PRN PRN PRN Reason: Pain Score 6-10/10 Last Admin: 09/25/19 11:34 Dose: 5 mg Documented by: Sodium Chloride () 10 - 40 ml IV UD PRN PRN Reason: SALINE FLUSH Last Admin: 09/24/19 18:36 Dose: 10 ml Documented by: Spironolactone (Aldactone) 150 mg PO DAILY [facility] Last Admin: 09/25/19 11:33 Dose: 150 mg Documented by: [facility]) [facility] Admin: 09/25/19 11:33 Dose: 100 mg Documented by: STROKE Vital Signs/Narrative: Vital Signs Temp Pulse Resp BP BP Pulse Ox 09/25/19 12:54 96 09/25/19 11:37 72 112/61 09/25/19 11:24 36.6 C 72 18 95/53 L 99 09/25/19 10:32 73 16 102/52 L 99 09/25/19 10:17 73 16 103/58 L 100 Medical Necessity - Tobacco Use Smoking Status: Current every day smoker Tobacco Use: Cigarettes Assessment/Plan All Active Problems Bacteremia (Resolved) Abscess (Acute) 1. abdominal wall cellulitis and abscess * drainage performed 09/22 noted to be purulent and blood tinged * 8/6 drain placed * culture showing MRSA * continue vancomycin * dc pip/tazo 2. ascites * 2/2 cirrhosis * no clinical evidence of SBP at this time * continue spironolactone 150 * resume furosemide 40 BID * no need for paracentesis at this time * no clinical evidence of SBP at this time. 3. Cirrhosis * follows with gastroenterology as outpt * MELD 20 = 3 month mortality of 19.6% * Child-Tuckre C 4. Anemia, chronic * monitor * stable * dropped down to 6.5, transfuse 1 unit. currently improved * check anemia studies 5. VTE proph: SCDs 6. Disposition: plan is to observe overnight, and if does well, then could DC home. Inpatient E&M: 20849 Subs Hosp L2
[2019-09-25] MEDS: 0.9% Saline Lock 10 ML Syringe IV (15:08)
[2019-09-25] MEDS: hydrOXYzine PAM 25 MG Capsule PO ×2 (15:44→21:13)
[2019-09-26 03:14] VITALS: BP 95/56; PULSE 78; RESP 16; TEMP 36.4; O2SAT 96
[2019-09-26] MEDS: Midodrine HCl 5 MG Tablet 10 MG PO (05:45)
[2019-09-26 06:15] LABS: Absolute Lymphocyte Count 0.95 X10^3/uL (0.83-4.51); Absolute Neutrophil Count 6.1 X10^3/uL (2.0-7.7); Basophil# 0.05 X10^3/uL; Basophil% 0.6 % (0-1); Eosinophil# 0.33 X10^3/uL; Hematocrit 22.5 % (40-54); Hemoglobin 7.4 g/dL (13.0-16.5); Lymphocyte # 0.95 X10^3/ul (4.0); Lymphocyte % 11.6 % (19-41); Mean Corp Hgb Conc 32.9 g/dL (32-36); Mean Corpuscular Hgb 30.6 pg (27.0-32.0); Mean Platelet Vol. 11.5 fl (6.2-12.0); Monocyte# 0.65 X10^3/uL; NRBC Flagged by Analyzer 0 % (0-5); Neutrophil # 6.08 X10^3/uL (2.7-7.7); Neutrophil % 74.5 % (47-70); POSITIVE COUNT YES; Platelet Count 95 K/mm3 (150-450); RBC Distribution Width CV 16.8 % (11.6-14.6); RBC Distribution Width SD 57.4 fl (35.1-43.9); Red Blood Count 2.42 M/mm3 (4.6-6.2); White Blood Count 8.2 K/mm3 (4.4-11.0)
[2019-09-26 07:25] LABS: Anion Gap 6 (5-15); BUN 26 mg/dL (7-18); BUN/Creat Ratio 23.2 RATIO (10-20); Calcium,Total 8.2 mg/dL (8.5-10.1); Chloride 100 mmol/L (98-107); Creatinine, Serum 1.12 mg/dL (0.70-1.30); EST Glomerular Filtration Rate 72 mL/min (>60); Est Glom Filt Rate - Afr Amer 88 mL/min (>60); Estimated Creatinine Clearance 80.31 ml/min; Ferritin 1598 ng/mL (26-388); Glucose 94 mg/dL (74-106); Iron 98 ug/dL (65-175); Iron Binding Capacity,Total 127 ug/dL (250-450); PERCENT IRON SATURATION 77.2 % (15.0-55.0); Potassium 4.2 mmol/L (3.5-5.1); Sodium Level 133 mmol/L (136-145)
[2019-09-26 08:00] VITALS: O2SAT 98
--- NOTE | 2019-09-26 09:01 | DCINST_ITS ---
- Discharge Diagnoses Current Active Problems: Current Active and Chronic Problems Abscess (Acute) Anemia (Chronic) You will use the following diet at home:: Fluid restricted (specify 2000 mls, 1500 mls) - 1500 mls/day. Less than 2 grams of salt/day. Your food should be the consistency of: Regular Your liquids should be the consistency of: Regular/Thin Discharge Activity: Return to Normal Activity Call your doctor if your incision/area has: Continuous Slow Oozing, Sudden Increased Bleeding, Increased Pain/ Swelling, Increased Redness Call your doctor if you observe: Fever of 101 or Higher, - - increased abdominal pain/distention. Drain: Suction - Empty drain when nearly filled and as needed., - Instructions: Caring for Your Buzz Nance Drainage Tube Allergies/Adverse Reactions: Allergies lisinopril Allergy (Verified 09/22/19 19:26) PT UNSURE OF REACTION codeine Adverse Reaction (Verified 09/22/19 19:26) Nausea hydrocodone [From Vicodin] Adverse Reaction (Verified 09/22/19 19:26) Itching Medications to take at Discharge Folic Acid 1 mg PO DAILY@0800 #30 tab 07/04/19 Thiamine Hydrochloride [Vitamin B1] 100 mg PO DAILYCM #30 tab 07/04/19 Midodrine HCl 10 mg PO TID #90 tab 07/29/19 Furosemide [Lasix] 40 mg PO BID 08/07/19 Spironolactone [Aldactone] 150 mg PO DAILY 08/07/19 Lactulose 20 gm PO DAILY 09/22/19 hydrOXYzine tablet [Atarax tablet] 25 mg PO 4X/DAY PRN PRN 09/22/19 Oxycodone [Oxyir] 5 mg PO Q6H PRN 3 Days #12 tablet 09/26/19 Smz/Tmp Ds [Bactrim Ds] 1 tab PO BID #14 tab 09/26/19 The following prescriptions were given: Smz/Tmp Ds [Bactrim Ds] 1 tab PO BID #14 tab Transmission Status: Pending to [facility] Oxycodone [Oxyir] 5 mg PO Q6H PRN 3 Days #12 tablet PRN Reason: Pain Score 6-10/10 Transmission Status: Sent to [facility] Primary Care Physician: Jayesh Jeffers MD [Primary Care Provider] - Within 1 Week Test Results: Test results from this visit will be discussed in further detail at your follow- up appointment, if applicable. Please Follow Up With: [facility] radiology When: 2 weeks for drain removal. Proposed Discharge Date: 09/26/19
--- NOTE | 2019-09-26 09:04 | DS.PCM_ITS ---
Discharge Date and Diagnosis - Problem List Patient Problems: Active and Suspected Problems Abscess (Acute) Date of Admission: 09/22/19 Date of Discharge: 09/26/19 - Primary Discharge Diagnosis Acute Problems: Active Problems Abscess (Acute) - Secondary Discharge Diagnosis Chronic Problems: Chronic Problems HTN (hypertension) (Chronic) Alcoholism (Chronic) Alcoholic cirrhosis (Chronic) Anasarca (Chronic) Ascites (Chronic) Hyponatremia (Chronic) Anemia (Chronic) Hospital Course and Treatment Imaging Results: Clinical Impression(s) from Imaging Studies Abdomen/Pelvis CT 09/22/19 19:51 IMPRESSION: * Interval increase in left anterior abdominal wall fluid with a 9.15 cm pocket now present, which could represent an abscess or seroma. Diffuse body wall edema is present. No visualized subcutaneous gas. * Large amount of abdominal ascites and cirrhotic liver * Colonic diverticulosis Electronically Signed: Yovani Boss MD at 21:28 EDT , Service support , Abscess Drainage CT 09/23/19 07:18 IMPRESSION: 1. CT directed drainage of a fluid collection using CT image guidance and image documentation as described. Electronically Signed: Demar Chamberlain at 10:33 EDT , Service support , Abdomen/Pelvis CT 09/24/19 13:29 IMPRESSION: Reticulation of the fluid collection in the left lateral anterior abdominal wall. The remainder the examination is unchanged. Electronically Signed: Demar Chamberlain at 15:03 EDT , Service support , Abscess Drainage CT 09/25/19 09:00 IMPRESSION: 1. CT directed drainage of a fluid collection using CT image guidance and image documentation as described. 2. Conscious Sedation protocol utilized with independent monitoring Electronically Signed: Demar Chamberlain at 10:37 EDT , Service support , Operations: None Summary of Care Provided: The patient is a 53 year old M with a history of cirrhosis and ascites who gets periodic paracenteses presents with swelling in the left lateral aspect of his abdomen. Patient had a CAT scan that showed a fluid collection of about 9cm is concerning for an abscess. Patient was admitted and started on broad-spectrum antibiotics. Patient underwent drainage on the fourth and that drainage came back showing MRSA purulent fluid. Patient then started spontaneously bleeding and then had a repeat CAT scan that showed still the presence of the fluid but smaller. A repeat drain was placed on the 6 and a drain was left in at that time. Patient will continue with drainage which patient has a ADONIS drain and instructed to drain it daily and as needed. Patient will be on trimethoprim/sulfa for 1 more week. Patient started follow-up with his primary care physician as well as follow-up with interventional radiology to have this drain removed and the next 2 to 3 weeks once drain is pretty much dried up at that time. Patient did not require any paracentesis during this hospitalization. I did reach out to general surgery about the patient's abscess and they were concerned that the patient could develop a fistula communicating with his intra-peritoneal cavity and recommended to drain instead. [] Patient Problems: Active and Suspected Problems Abscess (Acute) - Physical Exam Vitals/I&O's: Vital Signs Temp Pulse Resp BP Pulse Ox 36.4 C L 78 16 95/56 L 98 09/26/19 03:14 09/26/19 03:14 09/26/19 03:14 09/26/19 03:14 09/26/19 08:00 Oxygen Flow Rate (L/min) [3] 2 Oxygen Flow Rate (L/min) [2] 2 Oxygen Flow Rate (L/min) 2 Oxygen Delivery Method [3] Nasal Cannula Oxygen Delivery Method [2] Nasal Cannula Oxygen Delivery Method [1 ( Room Air Initial Baseline)] Oxygen Delivery Method Room Air Weight: 106.4 kg Body Mass Index (BMI) 32.7 Intake and Output for Last 24 Hours 09/24/19 09/25/19 09/26/19 23:59 23:59 23:59 Intake Total 1356.92 / 1356.92 1220.00 / 1220.00 180 / 180 Output Total 2350 / 2350 2265 / 2690 1695 / 1695 Balance -993.08 / -993.08 -1045.00 / -1470.00 -1515 / -1515 General: Alert, No apparent distress HEENT: Atraumatic, Normocephalic Oral: Moist Mucosa, No Gingival or Mucosal Lesions/ Ulcerations Neck: No Nodes, Thyroid Normal Size and Texture Lungs: Clear to auscultation, Normal air movement, No rhonchi, No wheeze Abdomen: Non Tender, - - drain intact in LLQ with improving erythema Microbiology Past 72 Hours 09/23/19 08:04 Abs - Abdominal Gram Stain - Final 09/23/19 08:04 Abs - Abdominal Wound Culture - Final Meth. resistant Staph. aureus 09/23/19 08:04 Abs - Abdominal Anaerobic Culture - Final No anaerobic bacteria isolated. Laboratory Results 09/25/19 11:04: Random Vancomycin 17.0 H 09/26/19 05:44: WBC 8.2, RBC 2.42 L, Hgb 7.4 L, Hct 22.5 L, MCV 93.0, MCH 30.6, MCHC 32.9, RDW Std Deviation 57.4 H, RDW Coeff of Pravin 16.8 H, Plt Count 95 L, MPV 11.5, Immature Gran % (Auto) 1.300 H, Neut % (Auto) 74.5 H, Lymph % (Auto) 11.6 L, [place] % (Auto) 8.0, Eos % (Auto) 4.0, Baso % (Auto) 0.6, Absolute Neuts (auto) 6.1, Absolute Lymphs (auto) 0.95, Nucleated RBC % 0 09/26/19 05:44: Sodium 133 L, Potassium 4.2, Chloride 100, Carbon Dioxide 27.0, Anion Gap 6, BUN 26 H, Creatinine 1.12, Estim Creat Clear Calc 80.31, Est GFR (MDRD) Af Amer 88, Est GFR (MDRD) Non-Af 72, BUN/Creatinine Ratio 23.2 H, Glucose 94, Calcium 8.2 L, Iron 98, TIBC 127 L, Iron Saturation 77.2 H, Ferritin 1598 H, Folate 28.10 09/26/19 05:44: Vitamin B12 Pending Current Medications Folic Acid (Folic Acid) 1 mg PO DAILY@0800 [facility] Last Admin: 09/25/19 11:33 Dose: 1 mg Documented by: Furosemide (Lasix) 40 mg PO BID@1000,1800 [facility] Last Admin: 09/25/19 16:59 Dose: 40 mg Documented by: Hydroxyzine Pamoate (Vistaril Pamoate Capsule) 25 mg PO 4X/DAY PRN PRN PRN Reason: ITCHING Last Admin: 09/25/19 21:13 Dose: 25 mg Documented by: Vancomycin IV Pharmacy to Dose (1 ea/ Sodium Chloride) 500 mls @ 250 mls/hr IV X1 PRN; Protocol PRN Reason: Rx to Dose Sodium Chloride () 250 mls @ 15 mls/hr IV .[id number] PRN PRN Reason: Saline Flush Last Infusion: 09/24/19 16:30 Dose: 0 mls/hr Documented by: Sodium Chloride () 250 mls @ 15 mls/hr IV .[id number] PRN PRN Reason: Additional IVPB Infusion Sodium Chloride () 500 mls @ 15 mls/hr IV PRN PRN PRN Reason: Blood Transfusion Vancomycin HCl 1,750 mg/ (Sodium Chloride) 535 mls @ 250 mls/hr IV Q24H [facility] Last Infusion: 09/25/19 18:30 Dose: Infused Documented by: Lactulose (Chronulac, Cephulac) 10 gm PO DAILY [facility] Last Admin: 09/25/19 11:34 Dose: 10 gm Documented by: Midodrine (Proamatine) 10 mg PO TID [facility] Last Admin: 09/26/19 05:45 Dose: 10 mg Documented by: Morphine Sulfate () 2 mg IV Q3H PRN PRN PRN Reason: Pain Score 6-10/10 Last Admin: 09/25/19 07:28 Dose: 2 mg Documented by: Ondansetron HCl (Zofran) 4 mg IV Q8H PRN PRN PRN Reason: NAUSEA/VOMITING Oxycodone HCl (Oxyir) 5 mg PO Q4H PRN PRN PRN Reason: Pain Score 6-10/10 Last Admin: 09/25/19 15:44 Dose: 5 mg Documented by: Sodium Chloride () 10 - 40 ml IV UD PRN PRN Reason: SALINE FLUSH Last Admin: 09/25/19 15:08 Dose: 10 ml Documented by: Spironolactone (Aldactone) 150 mg PO DAILY [facility] Last Admin: 09/25/19 11:33 Dose: 150 mg Documented by: Thiamine HCl (Vitamin B1) 100 mg PO DAILYCM [facility] Last Admin: 09/25/19 11:33 Dose: 100 mg Documented by: Discharge Activity: Return to Normal Activity Call your doctor if your incision/area has: Continuous Slow Oozing, Sudden Increased Bleeding, Increased Pain/ Swelling, Increased Redness Call your doctor if you observe: Fever of 101 or Higher, - - increased abdominal pain/distention. Drain: Suction - Empty drain when nearly filled and as needed., - Home Medications: Medications to take at Discharge Folic Acid 1 mg PO DAILY@0800 #30 tab 07/04/19 Thiamine Hydrochloride [Vitamin B1] 100 mg PO DAILYCM #30 tab 07/04/19 Midodrine HCl 10 mg PO TID #90 tab 07/29/19 Furosemide [Lasix] 40 mg PO BID 08/07/19 Spironolactone [Aldactone] 150 mg PO DAILY 08/07/19 Lactulose 20 gm PO DAILY 09/22/19 hydrOXYzine tablet [Atarax tablet] 25 mg PO 4X/DAY PRN PRN 09/22/19 Oxycodone [Oxyir] 5 mg PO Q6H PRN 3 Days #12 tablet 09/26/19 Smz/Tmp Ds [Bactrim Ds] 1 tab PO BID #14 tab 09/26/19 Following Prescriptions Were Given to Patient: Smz/Tmp Ds [Bactrim Ds] 1 tab PO BID #14 tab Transmission Status: Pending to [facility] Oxycodone [Oxyir] 5 mg PO Q6H PRN 3 Days #12 tablet PRN Reason: Pain Score 6-10/10 Transmission Status: Sent to [facility] Primary Care Physician: Jayesh Jeffers MD [Primary Care Provider] - Within 1 Week Please Follow Up With: [facility] radiology When: 2 weeks for drain removal. Patient Instructions: Caring for Your Buzz Nance Drainage Tube Disposition: Home Minutes spent on discharge:: 35 Patient Condition:: Fair Medical Necessity - Tobacco Use Smoking Status: Current every day smoker Tobacco Use: Cigarettes Meaningful Use Info Meaningful Use Diagnoses (Choose all that apply): None applicable Inpatient E&M: 13057 Disch Hosp
[2019-09-26] MEDS: Furosemide 40 MG Tablet PO (09:21)
[2019-09-26] MEDS: Folic Acid 1 MG Tablet PO (09:21)
[2019-09-26] MEDS: Thiamine Hydrochloride 100 MG Tablet PO (09:21)
[2019-09-26] MEDS: Spironolactone 50 MG Tablet 150 MG PO (09:22)
[2019-09-26 09:27] VITALS: BP 103/49; PULSE 71; RESP 18; TEMP 36.8; O2SAT 99
[2019-09-26] MEDS: hydrOXYzine PAM 25 MG Capsule PO (10:00)
[2019-09-26 10:14] LABS: Vitamin B12 1379 pg/mL (211-911)
--- NOTE | 2019-09-26 10:21 | CASEMGMT ---
LAKESHIA LOFTON Note: radiologist considered HHC for patient on discharge due to drain placement. LAKESHIA LOFTON spoke with Dr. Clay who states patient can be taught to empty drain at home and would likely not need HHC. Nursing taught patient how to empty drain. -LAKESHIA LOFTON spoke with patient. Patient is awake, alert and able to be taught to empty drain and write down amounts. He states he can do this @ home. Appt for f/u was made with PCP on Sunday and LAKESHIA LOFTON reviewed what to do if issues arise. First contact would be PCP office, and if emergent to return to ER. Patient prefers not to have HHC come to home as he will not let them in his house, they would need to see him on the porch. pt is ambulatory, not homebound, and able to drive for f/u appointment. Dali GOTTIN RN AC
[2019-09-26 12:41] VITALS: BP 118/66; PULSE 83; RESP 18; TEMP 36.6; O2SAT 100
--- NOTE | 2019-09-26 12:46 | PHA.DC.MR ---
Pharmacy Service has performed discharge medication reconciliation for this patient. The patient's discharge medication list was reviewed for discrepancies and discrepancies were resolved. Home Medications Folic Acid 1 mg PO DAILY@0800 #30 tab 07/04/19 Thiamine Hydrochloride [Vitamin B1] 100 mg PO DAILYCM #30 tab 07/04/19 Midodrine HCl 10 mg PO TID #90 tab 07/29/19 Furosemide [Lasix] 40 mg PO BID 08/07/19 Spironolactone [Aldactone] 150 mg PO DAILY 08/07/19 Lactulose 20 gm PO DAILY 09/22/19 hydrOXYzine tablet [Atarax tablet] 25 mg PO 4X/DAY PRN PRN 09/22/19 Oxycodone [Oxyir] 5 mg PO Q6H PRN 3 Days #12 tab 09/26/19 Smz/Tmp Ds [Bactrim Ds] 1 tab PO BID #14 tab 09/26/19
--- NOTE | 2019-09-26 13:26 | NURSING ---
pt called in after d/c from parking lot and states I think I left my wallet in my room, I just left 316 i have looked in my car but it is not here-[employer] and this nurse went thru used pt linen and bed, chair, floor, bathroom, closets and med drawers and no wallet discovered-Jenelle Charge nurse talking to pt at this time
--- NOTE | 2019-09-29 15:50 | CASEMGMT ---
LAKESHIA CM DC PHONE CALL DC DATE: 09/26/2019 DC DISPOSITION: Home DC DIAGNOSIS: Abscess LACE/STRATA: 04/06 F/U APPTS MADE PRIOR TO DC: yes Call to Dr. Jeffers's office as patient was to have appointment for follow up today. Patient did not come to appointment. Attempted to call patient's phone. No answer and message machine did not have name identifier. Dali KEITA RN ACM
== END 2019-09-26 13:01 | disposition home or self-care (01) | DRG 603 ==
LOC: ED 20:09 → MS3 23:57
PROVIDERS: Admitting Provider Hospitalist; Emergency Provider Emergency Medicine; PCP Family Medicine
DX: L02.211 Cutaneous abscess of abdominal wall (principal); D68.9 Coagulation defect, unspecified; E87.1 Hypo-osmolality and hyponatremia; L03.311 Cellulitis of abdominal wall; B95.62 Methicillin resistant Staphylococcus aureus infection as the cause of diseases classified elsewhere; I10 Essential (primary) hypertension; K70.31 Alcoholic cirrhosis of liver with ascites; D64.9 Anemia, unspecified; F10.21 Alcohol dependence, in remission; F17.210 Nicotine dependence, cigarettes, uncomplicated; Z86.14 Personal history of Methicillin resistant Staphylococcus aureus infection; Z79.899 Other long term (current) drug therapy
CPT/HCPCS: 36415; 74176; 75989; 80048; 80053; 80202; 82607; 82728; 82746; 83540; 83550; 83605; 85025; 85610; 85730; 86644; 86850; 86900; 86901; 86920; 87070; 87075; 87077; 87186; 87205; 97802; 99156; 99284; J7030; J7040; J7050; P9016; A4216

== ENCOUNTER → 2019-10-08 09:27 | Outpatient (CLI) | payer OTHER, SELFPAY ==
[2019-09-23 01:31] VITALS: BMI 32.7
--- NOTE | 2019-10-08 09:30 | US_ITS ---
PROCEDURE: ULTRASOUND GUIDED PARACENTESIS CLINICAL HISTORY: Male, 53 years old. ASCITES CONSENT: The risks, benefits and alternatives to the procedure were explained to the patient, and the patient agreed to the procedure and signed the consent. 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 PROCEDURE/TECHNIQUE: The risks, benefits, and alternatives to the procedure were explained to patient, and the patient agreed to the procedure and signed a consent form for the procedure. TECHNIQUE: Under the ultrasound guidance using sterile technique and after infiltration of the skin and subcutaneous soft tissues with 10 mL of lidocaine 1% a 5 Slovak drainage catheter is introduced in the lower part of the abdomen. 67013 mL of fluid were removed sample sent to lab for evaluation. The patient tolerated the procedure there was no immediate complication. FINDINGS: FLUID PRE-PROCEDURE There is posterior enhancement. The findings appear anechoic. There is no loculation. FLUID POST-PROCEDURE Amount of fluid drained: 95921 ml. US/Paracentesis with US IMPRESSION: Successful ultrasound-guided paracentesis. Electronically Signed: Karyn Stafford, at 17:42 EDT Tel , Service support ,
[2019-10-08 09:45] VITALS: BP 110/71; BP 113/54; BP 118/62; BP 119/61; PULSE 72; PULSE 74; PULSE 76; PULSE 84; RESP 16; RESP 18; O2SAT 100
[2019-10-08] MEDS: Albumin Human 25% (100 mL) 25 GM/100 ML BAG IV ×2 (11:28→13:00)
[2019-10-08] MEDS: 0.9% Saline Lock 10 ML Syringe IV ×2 (11:35→15:49)
[2019-10-08 11:37] VITALS: BMI 37.0
[2019-10-08 11:39] VITALS: BP 110/63; PULSE 71; RESP 16; TEMP 36.2; O2SAT 100; BMI 37.0
[2019-10-08] MEDS: Albumin Human 25% (50 mL) 12.5 GM/50 ML IV.SOLN IV (14:47)
[2019-10-08 16:05] VITALS: BP 105/53; PULSE 75
== END ==
LOC: US 09:28 → MEDOUTP 11:19
PROVIDERS: PCP Family Medicine; Referring Provider Internal Medicine Gastroenterology; Visit Provider Internal Medicine Gastroenterology
DX: R18.8 Other ascites (principal); K70.10 Alcoholic hepatitis without ascites
CPT/HCPCS: 96365; 96366; 49083; P9047; A4216

== ENCOUNTER 2019-10-08 16:02 | Emergency (ER) | payer OTHER, SELFPAY ==
[2019-10-08 11:39] VITALS: BMI 37.0
[2019-10-08 16:03] VITALS: BP 105/54; PULSE 72; RESP 18; TEMP 36.3; O2SAT 100; BMI 37.0
[2019-10-08 16:29] VITALS: BP 105/54; PULSE 72; RESP 18; TEMP 36.3; O2SAT 100
--- NOTE | 2019-10-08 16:47 | ED.DCSUM_ITS ---
History of Present Illness Chief Complaint: Abscess Informant: Patient Narrative: Patient is a 53-year-old male with a past medical history of liver cirrhosis who presents to the ED from the radiologist office. He states that he had a ADONIS drain just pulled today. He had an abdominal cellulitis and abscess. He was admitted for this. Completed a course of IV and oral antibiotics. States that he was on Bactrim and I just ran out. He denies having any abdominal pain whatsoever. States that the cellulitis looks very improved. He denies any fevers or chills. No nausea or vomiting. States his bowels are at baseline on the lactulose. The initial cellulitis/abscess was thought to be from a previous paracentesis drain. Past Medical History - Allergies and Home Meds Allergies/Adverse Reactions: Allergies lisinopril Allergy (Verified 10/08/19 16:03) PT UNSURE OF REACTION codeine Adverse Reaction (Verified 10/08/19 16:03) Nausea hydrocodone [From Vicodin] Adverse Reaction (Verified 10/08/19 16:03) Itching Primary Care Physician: Jayesh Jeffers MD [Primary Care Provider] - 2 Days for wound check Prior records reviewed: Yes Past Medical History: - - Alcoholic cirrhosis, hypertension, anemia Surgical History: - - Inguinal and umbilical hernia repair, colonoscopy, Cirrhosis Smoking Status: Current every day smoker - Family History Maternal Family History: Reports: Cancer - colon, Hypertension, Stroke, - Paternal Family History: Reports: Heart Disease, Hypertension, - Review of Systems All systems negative except as indicated General: Denies: Chills, Fever, Sweats Eyes: Denies: Visual changes - bilaterally, Diplopia ENT: Denies: Rhinorrhea, Sore throat Cardiovascular: Denies: Chest pain, Palpitations Respiratory: Denies: Dyspnea, Cough, Dyspnea on exertion Gastrointestinal: Denies: Abdominal pain, Nausea, Vomiting, Diarrhea Musculoskeletal: Denies: Back pain, Extremity Pain Skin: Denies: Rash, Wounds Neurological: Denies: Headache, Weakness, Numbness Hematologic: Denies: Easy bleeding, Lymphadenopathy Physical Exam Vital Signs/Narrative: Vital Signs Temp Pulse Resp BP Pulse Ox 10/08/19 16:29 97.3 F L 72 18 105/54 L 100 10/08/19 16:03 97.3 F L 72 18 105/54 L 100 Inital Vital Signs reviewed: Yes General: Well nourished, Well developed, No Acute Distress Head: Normocephalic, Atraumatic Eyes: Perrl, EOMI ENT: Moist mucous membranes, No rhinorrhea Neck: Supple, Nontender Cardiovascular: Regular rate, Regular rhythm, No murmurs Respiratory: No distress, CTA bilaterally, Chest nontender Abdomen: Soft, Nontender, Normal bowel sounds Back: Nontender, Normal Inspection Extremities: Nontender, No edema Skin: No rash, Jaundice, - - No appreciable abscess or cellulitis present. No tenderness with palpation. No warmth. There is mild erythema but this does surround the abdomen which appears to not be infectious. Neurological: Alert, Oriented x3, Cranial nerves II-XII grossly intact, Normal Strength, Normal Sensation Psychological: Normal affect, Normal Mood Diagnostic/Tx/Re-eval - Medical Decision Making Patient presents to the ED for evaluation of his previous cellulitis and abscess. Upon arrival to the emergency department vital signs within normal limits. He has absolutely no tenderness on palpation around the area. I do not feel this is cellulitis. It does appear that it has resolved. Patient states it does appear to him as well. The infusion center sent him over due to concerns that this was not healing well. The doctor there did not write him an antibiotic. I do not feel he needs one at this time. Since patient is high risk I will write him an antibiotic to only fill if he feels like the warmth, tenderness or erythema recurs. If he develops any systemic symptoms then he is to return to the emergency department. He otherwise can follow-up with his PCP. He understands and is agreeable this plan. Will discharge home in stable condition. ED Disposition - Plan for ED Patient: Disposition: Home or Assisted Living Diagnosis: Encounter for wound re-check Instructions: ED Cellulitis Prescriptions: Smz/Tmp Ds [Bactrim Ds] 2 tab PO BID #14 tab Transmission Status: Pending to [id number] Referrals: Jayesh Jeffers MD [Primary Care Provider] - 2 Days for wound check Additional Instructions: Only fill antibiotic if you develop warmth, tenderness or redness around the area. If you feel that the area is continuing to improve do not take antibiotic.
[2019-10-08 17:05] VITALS: RESP 16
--- NOTE | 2019-10-08 17:05 | ED.RN ---
REVIEWED D/C INSTRUCTIONS, FOLLOW UP CARE, PRESCRIPTION, AND S/S THAT WOULD WARRANT A RETURN TO THE ED WITH PT. PT VERBALIZED AN UNDERSTANDING AND DENIES FURTHER QUESTIONS FOR THIS RN. PT SKIN WARM/DRY, RESP EVEN AND UNLABORED, PT A&O X 3, NO DISTRESS NOTED. PT AMBULATED OUT OF ED, GAIT STEADY.
== END 2019-10-08 17:05 | disposition home or self-care (01) ==
PROVIDERS: Emergency Provider Emergency Medicine; PCP Family Medicine
DX: L53.9 Erythematous condition, unspecified (principal); I10 Essential (primary) hypertension; K70.30 Alcoholic cirrhosis of liver without ascites; F17.200 Nicotine dependence, unspecified, uncomplicated; Z48.00 Encounter for change or removal of nonsurgical wound dressing; Z79.899 Other long term (current) drug therapy
CPT/HCPCS: 99282

== ENCOUNTER → 2019-10-22 13:38 | Outpatient (CLI) | payer OTHER, SELFPAY ==
[2019-10-08 16:03] VITALS: BMI 37.0
--- NOTE | 2019-10-22 13:41 | US_ITS ---
PROCEDURE: Ultrasound guided paracentesis. DATE OF EXAMINATION: 10/22/2019. INDICATION: Male, 53 years old. Ascites. PHYSICIAN: Demar Chamberlain M.D. TECHNIQUE: The risks, benefits, and alternatives to the procedure were explained to the patient. The specific risks of bleeding, infection, and damage to bowel were detailed and accepted. Witnessed informed consent was obtained. The abdomen was ultrasonographically surveyed. An appropriate pocket of fluid was identified at the right lower quadrant. The skin were cleaned and prepped in the usual sterile fashion. Using ultrasound guidance, the peritoneal cavity was accessed with a 5-German paracentesis needle/catheter system. The trocar was removed. A total of 10,150 ml of russel-colored fluid were removed from the peritoneal cavity. The catheter was removed and a sterile dressing was applied. The procedure was well tolerated. US/Paracentesis with US IMPRESSION: Ultrasound guided paracentesis. Electronically Signed: Demar Chamberlain, at 15:40 EDT , Service support ,
[2019-10-22 13:56] VITALS: BP 118/76; BP 124/58; BP 127/67; BP 127/69; BP 130/65; PULSE 88; PULSE 92; PULSE 93; PULSE 95; PULSE 96; RESP 18; O2SAT 100
[2019-10-22] MEDS: 0.9% Saline Lock 10 ML Syringe IV (15:19)
[2019-10-22] MEDS: Albumin Human 25% (100 mL) 25 GM/100 ML BAG IV ×2 (15:19→16:39)
[2019-10-22 15:20] VITALS: BMI 33.5
[2019-10-22 18:33] VITALS: BP 130/60; PULSE 102; RESP 18; O2SAT 100
--- NOTE | 2019-10-30 13:12 | NURSING ---
10/28/2019 Vj calls ground operations crew member at 1540 with concerns about feeling full from abdominal acites and anasarca. Pt was seen 10/21 and had 10,150mL drained with fluid remaining in his abdomen. On 10/21 pt had anasarca as well. Pt's medications have not been changed recently by his santa's helper per patient. Pt requesting to have a paracentesis done. LAKESHIA Levine states I will call the office right now and leave a message with Mine. They aren't usually there to answer the phone after 3pm so I'll have to leave a detailed message and we will see what Dr. Pineda says tomorrow. Pt agrees to that plan. LAKESHIA Levine left detailed message for Mine, Dr. Pineda's podiatric assistant, stating Vj Rivas called us today requesting a paracentesis. He had 10,150mL drained on 10/21 and he says he is feeling full and needing a paracentesis. I know on 10/21 he had generalized pitting edema throughout his upper and lower extremities and still had fluid left after we drained 10,150mL. I'm not sure if Dr. Pineda wants to do a telehealth visit with him to change his medications or if he just wants to order another paracentesis with albumin infusion afterwards, but if you could call and let us know in the morning that would be great. Our number is [phone]. I can also have Xenia or Mary give you a call in the morning as well After leaving a message, pt called ground operations crew member again stating that his dermabond had been seeping on 10/24 and that he put a bandaid on it. LAKESHIA Levine asked if pt has changed the bandaid since 10/24, pt states he has not removed it and won't because it isn't seeping anymore. LAKESHIA Levine encouraged pt to change bandage or remove it all together if it is healed. 10/29/2019 LAKESHIA Krishna spoke with Nancie who was covering for Mine's vacation who stated that she sent a text to LAKESHIA Mcgee Anesthesiology Technologist for Dr. Pineda. 10/30/2019 LAKESHIA Rihc left voicemail for LAKESHIA Mcgee Anesthesiology Technologist for Dr. Pineda. Arely returned call at approximately 0940. LAKESHIA Levine spoke with LAKESHIA Mcgee. LAKESHIA Mcgee states I've talked with Vj 3 times between yesterday and this morning and he knows I haven't heard back from Dr. Pineda yet, as soon as I get an order I'll make sure you get it. Oh wait, Dr. Pineda just sent me a message. He said he's not to have more than one paracentesis every two weeks. And if he does need it any sooner he needs to be evaluated in the ER. LAKESHIA Levine That's not going to do much for him now, he had a para on 10/21 so he won't be able to get another until 11/04? LAKESHIA Mcgee states Yes, he only wants him to have one every 2 weeks at the most, he'll have to go to the ER otherwise LAKESHIA Levine states Ok, can you call the patient and make him aware of this order? Then can you fax me the order and I will work on getting him scheduled? LAKESHIA Mcgee agrees. LAKESHIA Levine then asks Could you go through his current medications with me? I thought Dr. Pineda wanted to adjust those throughout his care and I want to make sure he's on the right medications as I'm not convinced he is taking the proper amounts. LAKESHIA Mcgee then states Dr. Pineda took him off of his spironolactone as his sodium has been too low. He's also on a strict 1.5L fluid restriction/day and is only able to have 2g of salt/day. So since he took him off the spironolactone, all he's on is 40mg of Furosemide twice a day. LAKESHIA Levine states Ok thank you so much I wasn't aware of those fluid and sodium restrictions so I'll have to talk with him and make sure he's complying LAKESHIA Levine then receives order for 2 paracentesis' for pt to occur 2 weeks apart. LAKESHIA Levine schedules the patient. 10/30/2019 LAKESHIA Levine calls pt at approx 1300 to inform patient of paracentesis appts on 11/05/2019 and 11/19/2019. Pt states There's no way I can make it until the , I can barely get in the car I'm so full of fluid LAKESHIA Levine advised that according to Dr. Pineda's order he has to wait 2 weeks after his paracentesis to have another or go to the ER to be evaluated Pt conveys his disappointment and states he'll likely have to go to the ER because he is too full to wait until 11/05/2019.
== END ==
PROVIDERS: PCP Family Medicine; Referring Provider Internal Medicine Gastroenterology; Visit Provider Internal Medicine Gastroenterology
DX: R18.8 Other ascites (principal)
CPT/HCPCS: 49083; P9047; A4216

== ENCOUNTER 2019-10-30 14:09 | Emergency (ER) | payer OTHER, SELFPAY ==
[2019-10-22 15:20] VITALS: BMI 33.5
[2019-10-30 14:11] VITALS: BP 139/71; PULSE 103; RESP 17; TEMP 36.8; O2SAT 100; BMI 37.6
--- NOTE | 2019-10-30 14:29 | ED.VIS.GEN ---
History of Present Illness Chief Complaint: Abd Pain Informant: Patient Narrative: Patient is a 53-year-old male with a past medical history of alcoholic cirrhosis and ascites who presents to the emergency department for abdominal distention. Last time he received a paracentesis was 8 days ago. He feels that he needs another one. He has been feeling short of breath with how distended his abdomen is. He denies any significant abdominal pain. No fevers or chills. He denies any associated chest pain with the shortness of breath. His legs have also been swollen. He states last time he received a paracentesis was stopped short and they left a few liters on so he feels he is behind the 8 ball. Otherwise no known aggravating or relieving factors. Past Medical History - Allergies and Home Meds Allergies/Adverse Reactions: Allergies lisinopril Allergy (Verified 10/30/19 14:11) PT UNSURE OF REACTION acetaminophen [From Tylenol] Adverse Reaction (Verified 10/30/19 14:11) LIVER ISSUES codeine Adverse Reaction (Verified 10/30/19 14:11) Nausea hydrocodone [From Vicodin] Adverse Reaction (Verified 10/30/19 14:11) Itching Primary Care Physician: Jayesh Jeffers MD [Primary Care Provider] - 2 Days Prior records reviewed: Yes Past Medical History: - - Alcoholic cirrhosis, hypertension Surgical History: - - Inguinal and umbilical hernia repair, colonoscopy, Cirrhosis Smoking Status: Current every day smoker - Family History Maternal Family History: Reports: Cancer - colon, Hypertension, Stroke, - Paternal Family History: Reports: Heart Disease, Hypertension, - Review of Systems All systems negative except as indicated General: Denies: Chills, Fever, Sweats Eyes: Denies: Visual changes - bilaterally, Diplopia ENT: Denies: Rhinorrhea, Sore throat Cardiovascular: Denies: Chest pain, Palpitations Respiratory: Denies: Dyspnea, Cough, Dyspnea on exertion Gastrointestinal: Reports: Diarrhea. Denies: Abdominal pain, Nausea, Vomiting, Melena, Hematochezia Genitourinary: Denies: Dysuria, Hematuria, Frequency Musculoskeletal: Reports: Swelling. Denies: Back pain, Extremity Pain Skin: Denies: Rash, Wounds Neurological: Denies: Headache, Weakness, Numbness Physical Exam Vital Signs/Narrative: Vital Signs Temp Pulse Resp BP Pulse Ox 09/10/20 14:11 98.2 F 103 H 17 139/71 H 100 Inital Vital Signs reviewed: Yes General: Well nourished, Well developed, No Acute Distress Head: Normocephalic, Atraumatic Eyes: Perrl, EOMI ENT: Moist mucous membranes, No rhinorrhea Neck: Supple, Nontender Cardiovascular: Regular rate, Regular rhythm, No murmurs Respiratory: No distress, CTA bilaterally, Chest nontender Abdomen: Nontender, Normal bowel sounds, - - Abdomen is very distended with ascites. Back: Nontender, Normal Inspection Extremities: Nontender, Edema Skin: Normal color, No rash Neurological: Alert, Oriented x3, Cranial nerves II-XII grossly intact, Normal Strength, Normal Sensation Psychological: Normal affect, Normal Mood Diagnostic/Tx/Re-eval - Medical Decision Making Patient presents the emergency department for increased swelling of his abdomen. No significant pain or fever. This does not seem to be SBP. Vital signs within normal limits upon arrival. Not desaturating but is complaining of mild shortness of breath. He believes that this is related to his ascites. He states that his liver doctor will not clear him for repeat tap until 2 weeks from the previous one unless he goes to the ED. I spoke with our on-call interventional radiologist who states he is unable to perform the paracentesis tonight. I did offer hospitalization until he can get the paracentesis performed tomorrow. Patient declines and states he will come back in the morning. If patient develops worsening shortness of breath or any significant abdominal pain he is to return to the emergency department immediately. He understands and is agreeable this plan. Patient stable for discharge at this time. ED Disposition - Plan for ED Patient: Disposition: Home or Assisted Living Diagnosis: Abdominal ascites Instructions: ED Ascites Referrals: Jayesh Jeffers MD [Primary Care Provider] - 2 Days
--- NOTE | 2019-10-30 14:45 | ED.RN ---
radiology called wanting order for paracentesis. discussed with dr. cummings that patient will need to be seen for prior to paracentesis for blood work in er. no order placed at this time. patient aware to return to er tomorrow prior to 0900.
[2019-10-30 14:49] VITALS: PULSE 105; RESP 26; O2SAT 99
== END 2019-10-30 15:03 | disposition home or self-care (01) ==
LOC: ED 14:41
PROVIDERS: Emergency Provider Emergency Medicine; PCP Family Medicine
DX: R18.8 Other ascites (principal); I10 Essential (primary) hypertension; F17.200 Nicotine dependence, unspecified, uncomplicated
CPT/HCPCS: 99282; A4216

== ENCOUNTER → 2019-10-31 | Outpatient (CLI) | payer OTHER, SELFPAY ==
[2019-10-30 14:11] VITALS: BMI 37.6
--- NOTE | 2019-10-31 09:38 | US_ITS ---
PROCEDURE: Ultrasound guided paracentesis. DATE OF EXAMINATION: 10/31/2019. INDICATION: Male, 53 years old. Ascites. PHYSICIAN: Demar Chamberlain M.D. TECHNIQUE: The risks, benefits, and alternatives to the procedure were explained to the patient. The specific risks of bleeding, infection, and damage to bowel were detailed and accepted. Witnessed informed consent was obtained. The abdomen was ultrasonographically surveyed. An appropriate pocket of fluid was identified at the left lower quadrant. The skin were cleaned and prepped in the usual sterile fashion. Using ultrasound guidance, the peritoneal cavity was accessed with a 5-Yi paracentesis needle/catheter system. The trocar was removed. A total of 10,200 ml of russel-colored fluid were removed from the peritoneal cavity. The catheter was removed and a sterile dressing was applied. The procedure was well tolerated. US/Paracentesis with US IMPRESSION: Ultrasound guided paracentesis. Electronically Signed: Demar Chamberlain, at 11:59 EDT , Service support ,
[2019-10-31 09:49] VITALS: BP 121/63; BP 121/64; BP 129/78; BP 131/65; BP 136/73; PULSE 88; PULSE 89; PULSE 94; PULSE 96; RESP 16; RESP 18; TEMP 36.7; O2SAT 100; O2SAT 99
[2019-10-31 11:22] VITALS: BP 116/82; PULSE 73; RESP 20; TEMP 36.6; O2SAT 100; BMI 41.3
[2019-10-31] MEDS: Albumin Human 25% (100 mL) 25 GM/100 ML BAG IV ×2 (11:27→12:52)
[2019-10-31] MEDS: Albumin Human 25% (50 mL) 12.5 GM/50 ML IV.SOLN IV (14:38)
[2019-10-31 15:36] VITALS: BP 99/55; PULSE 89; RESP 18; O2SAT 100
== END | disposition home or self-care (01) ==
LOC: US 09:36 → MEDOUTP 11:04
PROVIDERS: PCP Family Medicine; Referring Provider Emergency Medicine; Visit Provider Emergency Medicine
DX: R18.8 Other ascites (principal)
CPT/HCPCS: 96365; 96366; 49083; P9047; A4216

== ENCOUNTER → 2019-11-05 | Outpatient (CLI) | payer OTHER, SELFPAY ==
[2019-10-22 15:20] VITALS: BMI 33.5
[2019-10-31 11:22] VITALS: BMI 41.3
--- NOTE | 2019-11-05 12:37 | US_ITS ---
PROCEDURE: Ultrasound guided paracentesis. DATE OF EXAMINATION: 11/05/2019. INDICATION: Male, 53 years old. Ascites. PHYSICIAN: Demar Chamberlain M.D. TECHNIQUE: The risks, benefits, and alternatives to the procedure were explained to the patient. The specific risks of bleeding, infection, and damage to bowel were detailed and accepted. Witnessed informed consent was obtained. The abdomen was ultrasonographically surveyed. An appropriate pocket of fluid was identified at the left lower quadrant. The skin were cleaned and prepped in the usual sterile fashion. Using ultrasound guidance, the peritoneal cavity was accessed with a 5-Azeri paracentesis needle/catheter system. The trocar was removed. A total of 10,000 ml of russel-colored fluid were removed from the peritoneal cavity. The catheter was removed and a sterile dressing was applied. The procedure was well tolerated. US/Paracentesis with US IMPRESSION: Ultrasound guided paracentesis. Electronically Signed: Demar Chamberlain, at 15:15 EDT , Service support ,
[2019-11-05 13:00] VITALS: BP 123/73; BP 126/71; BP 130/77; PULSE 88; PULSE 89; PULSE 94; RESP 16; RESP 18; TEMP 36.9; O2SAT 100; O2SAT 99
[2019-11-05] MEDS: Albumin Human 25% (100 mL) 25 GM/100 ML BAG IV ×2 (14:28→15:55)
[2019-11-05 14:32] VITALS: BP 115/67; PULSE 78; RESP 16; TEMP 36.6; O2SAT 98; BMI 36.9
[2019-11-05] MEDS: Albumin Human 25% (50 mL) 12.5 GM/50 ML IV.SOLN IV (17:35)
--- NOTE | 2019-11-06 16:15 | CASEMGMT ---
Addendum entered and electronically signed by Sydnee Bolton RN 11/06/19 18:30: Follow-up call scheduled with pt for 11/07/2019 between noon and 1pm. Jeison Bolton RN Original Note: RN Care Coordination Assessment: Pt is a 53yo male with comorbidities including ETOH cirrhosis of the liver w/ascites, HTN, Alcoholism, coagulopathy, thrombocytopenia, anemia, portal hypertension, anasarca, and anxiety. Pt is a smoker. Pt was initially diagnosed with ETOH cirrhosis of the liver in May,. The following information was gathered via medical record review, discussion with patient at the bedside, discussion with Jane Noel, and subsequent medical records/office visit notes received from . Providers: PCP: Dr. Jeffers ([facility]) Paper And Prints Restorer: Dr. Pineda ([facility]) office phone: [phone]; RN Coordinator Jane Noel, direct phone: [phone] Medical Lead: Dr. Nilson Kate ([facility]) Interventional Radiologist: Dr. Chamberlain ([facility]) Hospitalizations and Outpt Visits: 06/04 - 06/10/2019: [facility] then tx to . Admitted with hyponatremia, ETOH cirrhosis of the liver, coagulopathy 06/29 - 07/04/2019: [facility]. Admitted with anasarca d/t cirrhosis. (1st paracentesis received) 07/10, 07/15, 07/17, 07/21: Outpt paracenteses at [facility] (ordered by Dr. Jeffers) 07/24 - 07/29/2019: [facility]. Admitted for sepsis 2/2 MRSA (etiology unclear) and PETER. 07/31, 08/03, 08/06: Outpt paracenteses at [facility] (ordered by Dr. Jeffers) 08/06 - ?: [facility] then tx to . Admitted with presyncope, hyponatremia, GI bleed, anemia 08/13 (ordered by Dr. Jeffers, 08/27 (this and all subsequent ordered by Dr. Pineda), 09/16: Outpt paracenteses at [facility]. (Difficulty with site leakage noted, ED visit 08/29 and Rad RN visit 08/31 made; Albumin also administered based on volume removal starting with these visits) 09/21 - 09/26/2019: [facility]. Admitted with abscess requiring drain placement. 10/07, 10/21: [facility] 10/29: ED visit for anasarca 10/30 and 11/05/2019: Outpt paracenteses Other testing: EGD completed 08/10/2019: no varices, + portal hypertension Insurance: [facility] Medications: (As reported on 11/03/[address] Kate's office visit note) Lasix 40mg po BID Aldactone 50mg TID Folic Acid 1mg PO daily Constulose 10g/15mL PO once daily Hydroxyzine hydrochloride 25mg one QID prn KCl 10mEq PO BID Midodrine 10mg PO TID Lactulose 20gm oral powder for reconstitution once daily. Pt states he has not been taking his laculose/constulose routinely and states I have been having bowel movements. Education provided on ammonia build up and how this medication prevents excess ammonia in his system that could lead to impaired mental status. Pt did not reiterate an intent to improve compliance. Aldactone has been adjusted periodically throughout the past months by Dr. Pineda in accordance with the patient's low sodium levels. Diet: 2gm Sodium, 1.5L Fluid Restriction Current Plan of Care: Pt ordered paracentesis q2 weeks with albumin dosed based on amount of ascitic fluid removed. (Volumes removed have been 2950 to 10,000mL) Dr. Pineda spoke w/pt 10/29. Per [facility], plan is for a virtual visit when Dr. Pineda returns from being out of town in two weeks. Dr. Kate plans for follow-up in two months, continue to monitor CBC and transfuse to keep Hgb >7, and re-evaluate for possible bone marrow bx at next visit. Labs q2 weeks per Dr. Kate (Pt driving to [place] for labs to be completed to facilitate the results being received/reviewed by physicians) Diet and medications as above. SDOH: Health literacy: Low. Pt states it takes him awhile to understand things. 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 Is currently unable to work and on short term disability administered by [employer] through his employer. Pt states he has been in contact with an insurance CM Hardeep who has mailed him middle or intermediate school principal disability forms. Pt admits that he does not open his mail routinely and does not know if he has received these forms. States he asked Hardeep if they were in a small or big envelope but did not receive a response. Pt states he has a little savings left. Pt pays child support which is deducted from his check automatically but he believes he is behind on these payments. Housing: Pt currently rents a condo in [place]. Pt expressed concern about eviction and inability to pay rent. Home is two stories with his bedroom in the lower level. Transportation: Pt drives independently and owns his car. Pt states he has a year and a half of payments remaining on his car loan. Pt expressed concern regarding possible repossession of the care and inability to make payments. Food: Pt states he does his own shopping at [employer] or [employer] and utilizing their battery operated carts to get around the stores. Admits to eating canned soups. Noted in past medical records that pt has been seen by the dietitian on multiple occasions. Pt received additional diet education as noted by metal window screen assembler including label reading for Na consumption monitoring. Pt states he has started to read labels. States he doesn't eat anything that has more sodium in it than a can of [employer] [place] soup. Pt unable to state if he is purchasing a low sodium version or regular version. Pt states he understands that he should not be eating canned soup. Pt states he was told to eat a lot of chicken which he will eat but states he cannot eat it all of the time. Pt aware of 1.5L fluid restriction but does not closely monitor/track his fluid intake and states he uses 20oz. cups. Pt states he has trouble with the salt shaker. Instructed pt to throw the salt shaker away as there will be enough salt in his food to meet his maximum allowed. Social Isolation: Pt states he is but has been from his . States his is a BSN and working somewhere in [place]. States she will assist him if he really needs it but otherwise he doesn't bother. An example of when he really needed help was when he had been discharged from the hospital in May and did not know what to do with the bag of meds they sent him home on. Pt states his did get him a pill box and assisted him with setting up his meds. Pt has a 16yo son but states he does not get to see him often due to COVID and wanting to protect himself. Pt states he is immunocompromised and tries to avoid exposure. Pt does wear a mask when grocery shopping. Pt states his parents are and he does not have any siblings. Pt states he does not have any support. Alcohol misuse: Pt reports to have not consumed alcohol since his hospitalization and diagnosis in May of this year. Concerns: 1. Nonadherence to dietary restrictions having a negative effect on patient's fluid balance. Will continue to provide education in a manner that the patient can understand and apply. 2. Nonadherence to medications. Will continue to provide education in a manner that the patient can understand and apply. 3. Financial insecurity. Will research resources to facilitate patient's application for retirement disability and income needs. 4. Social Isolation. Will contact patient via phone weekly to offer support. Will research available programs to support patient. Jeison Bolton MBA, RN, CCDS
--- NOTE | 2019-11-07 15:20 | CASEMGMT ---
RN Care Coordination Follow-up: Follow-up call placed to patient as scheduled. Concerns addressed as follows: Medications: Pt states he keeps his medications in bags for morning, afternoon, and night. Pt pulled out the medications and stated he was taking the following: Constulose syrup (admits to not being compliant with this medication). (Pt states does not have any powder lactulose as noted on Dr. Kate's medication list). Folic Acid 1mg one once a day Vitamin B1 100mg one once a day Lasix 40mg one once a day Midodrine 10mg three times a day Spironolactone (Aldactone) 150mg total for the day. Splits it into 100mg in the morning and one in the afternoon. Hydroxyzine for itching. States he has taken all of his pills for this. Pt read on the bottle that he has one refill remaining. Lachydrin lotion for his dry skin. Oxycodone (from when he had a ADONIS drain placed previously. States to have only taken one pill and still has the other 9 remaining from 10 prescribed) Nasal spray: is no longer using as he began to have nose bleeds. These have subsequently stopped. [facility]: [facility] Medication education: Pt able to state an understanding of how the constulose removes the ammonia out of his system. Pt compared this to a filter he used previously in his fish tank that would remove the ammonia out of the water. Pt stated that he does not always take it because it makes him have to go to the bathroom frequently and interferes with his ability to leave the house to attend appointments, etc. Pt understood that the aldactone helps remove fluid from his system and reiterated that he knows he needs it. Diet: 2gm Na, 1500mL fluid restriction 2gm Na: Pt states that since we met on Sunday he has stopped using the salt shaker. States that he had just eaten an apple an did not put any salt on it, as he normally would. States he did look at the [employer] [place] soup and did see a heart healthy version. Stated that the regular can had 1700mg of Na and the heart health was 870mg. Explained to pt that he can have 2000mg of Na in a day and that he would not have many milligrams left after consuming the canned soup. Pt states he stopped eating fast food but once in a while he will get a Big Mac or Whopper, but does not get fries, just the sandwich. States he does go to [facility] once a week. States he normally gets a Beef and Chedder. Looked online at Na content and relayed to patient the Na content being over 1700mg for the double and the original being over 800mg. Pt states he also likes to get ready made meals from [employer] such as the [place] steak or the meatloaf. Discussed patient's ability to prepare his own meals. Pt states he can cook some and that his has attempted to teach him to cook. States he has difficulty standing up for long periods of time so prefers meals that are already prepared. Fluid intake: Pt states he has been drinking PowerAde, Diet Pepsi, and water. States he used to drink a 2L of Diet Pepsi every day. He had this down to 28oz but since Sunday he has not drunk any pop. Explained that the powerade and the Pepsi both contain sodium as well. Pt asked about filling a cup with water and sipping on it throughout the day. Encouraged patient to do this. Finances: Disability: Pt states he has been in contact with the department of [employer] and he does not have custodial disability benefits. Pt states he does not have an AFLAC or other self purchased disability policy. Basics of disability options explained and phone number to the Social Security Office given to patient who wrote it down and was able to recite it back. Pt states he will call them. Payments: Pt states he is not behind on his car payments at this time but fears he may in the future. Pt expressed fear of losing his car and how this would impair him in the future. Pt states he believes he is behind in his rent. States he has spoken with his landlord who is aware of his situation and is being lenient regarding the rent. Food: Pt states that he has not had difficulty with purchasing his food at this time but does have concerns when he no longer has income. Explained to patient that there are resources in the community including the [facility] and [employer] who provide food. ETOH: Pt states he has not been drinking and reports tolerating this well. Described how he lost a few days while he was [facility] in May and that he had gone through [facility] at that time. Pt states he most tempted when he goes through the drive thru to get his cigarettes and he sees the brightly colored drinks sitting out on display. Admits to be being tempted to purchase these but states he has not. States he started to go the gas station instead to avoid seeing them but due to difficulty getting in and out of the car, he went back to using the drive thru. ADL's: Pt states he has some difficulty with bathing. Does not shower when he has had a recent paracentesis to not disturb the dressing. States he has covered them with plastic. Currently waits until he has not had a recent paracentesis. States he has difficulty getting his legs over the side of the tub and the glass shower door tracking. Discussed using a shower chair but states he does not feel this would be safer and getting up and down to reach everything would be more difficult and add an increase risk of falling. The shower has a regular shower head and not a hand held shower head. Follow-up: Pt able to recite his next blood draw is on 11/17/2019 and his next appointment with Dr. Kate is on 12/29/2019 at 1330. Pt is unsure of his next paracentesis and does not have an appointment with Dr. Pineda scheduled at this time. Pt aware that his last Hgb was 8.5 and that it has remained stable. States his Na was 123 the last he knew but believes it has improved and was told that if he didn't hear anything from [facility] then it was ok. Congratulated patient on taking steps to get his diet under control and improve his current fluid state. Did explain that we are currently working with him to get his fluid status stabilized and once this occurs and a baseline is established, where we proceed from here will be more clear. Possibilities relayed included continued improvement, need for liver transplant, or further decline. Pt states he understands. Continued to encourage patient to adhere to dietary changes and medications. Will follow-up with patient next 11/14/2019. Jeison Bolton MBA, RN
--- NOTE | 2019-11-14 14:48 | CASEMGMT ---
mushroom cutter Coordination: Follow-up Phone call placed to patient at 1245. Voicemail received and message left requesting a return call. Pt returned call at 1400. Pt reports feeling improved since last phone call. Diet: Pt states he has cut down to only drinking water and states he has decreased the amount of water that he is drinking. Pt states he stopped adding salt to any of his food and has been watching more closely the amount of Na in his foods. ETOH: Pt states he continues to abstain from consuming ETOH and that he is not tempted to drink ETOH. States he is tempted to drink other beverages such as Sunkist orange drink. Pt states his [id number] is a recovering alcoholic and he does talk to him occasionally for support. Finances: Pt states he received a call from the insurance examiner who resent the application for disability. Pt states he looked through his mail and was able to find the forms. He completed them and mailed them on Sunday. Informed patient that he can also apply for assistance through [employer]. Pt states that his bills consist of utilities, car, rent and groceries. States he does not have any other outstanding debts. Follow-up: Pt states he is due for his lab work to be drawn in [place] on Sunday. States he received a call that he is scheduled for a paracentesis next Sunday. Noted in [facility] that pt is scheduled for Sunday at 1230 so asked that he call radiology to confirm date and time. Pt states he has not heard from Dr. Pineda's office. Explained that Dr. Pineda was out of town and there was a plan for him to follow-up upon his return. Pt requested phone number for Dr. Pineda's nurse Jane which was provided to pt. Pt states he will call her about a follow-up appointment. Pt also discussed possible liver transplant. Pt states he has heard of others who have done well following a transplant and that a nurse from his insurance thought he may be at the point to qualify for one. At one point pt stated he felt he was improving and may not need one but also said that if needed he may be ready for one. Relayed to pt that Jane from Dr. Pineda's office plans to work with Dr. Pineda in November to see where he stands in regard to his liver disease. Explained to patient that we are working to find out what his baseline will become and then determine what he needs and formulate a plan from there. Pt states he does feel his fluid status is much improved from a couple of weeks ago. He does feel he has accumulated some fluid but not nearly as much. He is looking forward to his next paracentesis to get an idea if the amount of fluid needing to be removed will be less. Pt denied any further questions. Pt provided permission for this RN ROLLY to meet with him when he presents for his paracentesis. Will continue to reinforce above and review medications at that time. Jeison Bolton RN CM
== END | disposition home or self-care (01) ==
LOC: US 12:36 → MEDOUTP 14:02
PROVIDERS: PCP Family Medicine; Referring Provider Internal Medicine Gastroenterology; Visit Provider Internal Medicine Gastroenterology
DX: K70.11 Alcoholic hepatitis with ascites (principal)
CPT/HCPCS: 96365; 96366; 49083; P9047; A4216

== ENCOUNTER → 2019-11-19 11:49 | Outpatient (CLI) | payer OTHER, SELFPAY ==
[2019-10-22 15:20] VITALS: BMI 33.5
[2019-11-05 14:32] VITALS: BMI 36.9
--- NOTE | 2019-11-19 11:53 | US_ITS ---
PROCEDURE: Ultrasound guided paracentesis. DATE OF EXAMINATION: 11/19/2019. INDICATION: Male, 53 years old. Ascites. PHYSICIAN: Demar Chamberlain M.D. TECHNIQUE: The risks, benefits, and alternatives to the procedure were explained to the patient. The specific risks of bleeding, infection, and damage to bowel were detailed and accepted. Witnessed informed consent was obtained. The abdomen was ultrasonographically surveyed. An appropriate pocket of fluid was identified at the left lower quadrant. The skin were cleaned and prepped in the usual sterile fashion. Using ultrasound guidance, the peritoneal cavity was accessed with a 5-Luxembourgish paracentesis needle/catheter system. The trocar was removed. A total of 10,000 ml of russel-colored fluid were removed from the peritoneal cavity. The catheter was removed and a sterile dressing was applied. The procedure was well tolerated. US/Paracentesis with US IMPRESSION: Ultrasound guided paracentesis. Electronically Signed: Demar Chamberlain, at 13:54 EDT , Service support ,
[2019-11-19 13:21] VITALS: BP 113/60; BP 119/74; BP 128/73; PULSE 78; PULSE 79; PULSE 89; RESP 18; TEMP 37; O2SAT 100; O2SAT 98
[2019-11-19] MEDS: Albumin Human 25% (100 mL) 25 GM/100 ML BAG IV ×2 (13:40→15:03)
[2019-11-19 13:42] VITALS: BP 116/64; PULSE 72; RESP 16; TEMP 36.7; O2SAT 98; BMI 36.9
--- NOTE | 2019-11-19 16:19 | CASEMGMT ---
referral nurse Coordination Follow-up: Met with patient at bedside during albumin administration with Madonna Chávez RN CM. Pt easily aroused and conversant. Reviewed the following: Diet: Pt states he continues to watch the sodium in his food although states he continues to eat [employer] [place] soup. States he is eating the heart healthy version that has 800mg of Na verses the regular which has 1900mg of Na. Reiterated the 2000mg Na restriction per Dr. Pineda. Fluid Restriction: Pt states he continues to only drink water. States he drinks 5-6 16 ounce glasses. Explained to patient that this amount is equivalent to almost 3000mL of fluid and Dr. Pineda wants him to only drink 1500mL. Discussed options including chewing on ice and provided him with a water pitcher with mL measurements to facilitate knowing how much liquid he has consumed. Also asked patient, if he is using his 16 ounce cups, to try cutting this down to 3-4 glasses which would bring his intake down to 1920 or less. Pt agreeable. Medications: Pt states he has not taken his lactulose in a while. Pt states it makes him have up to 10 BM's a day which makes it difficult for him to do anything. Pt states he understands it is also to get the ammonia out of his system. Asked pt if he could start with taking it 2 times a week which he agreed to try. Pt states he is continuing to take the spirolactone 150mg and lasix 40mg daily. Labs: Pt states he did get his labs drawn on Sunday and was told his Hgb was 7.9 and his Na was up to 132. Follow-up: Pt states he has not heard from Dr. Pineda's office regarding a follow-up appointment and thought he was to follow-up in three months from his appointment in September. Pt agreeable to this LAKESHIA LOFTON contacting Jane or Mine at Dr. Pineda's office to clarify follow-up appointment expectation. Finances: Pt states he spoke with Insurance CM Hardeep last evening. Hardeep stated he did not have the completed disability forms scanned into their system. Hardeep asked for Dr. Pineda's office number but pt explained that when he returned to the phone, Hardeep was no longer on the line. Pt called Hardeep back and provided the phone number on Hardeep's voicemail. This RN CM offered to contact Hardeep to facilitate understanding of forms and expectations. Pt agreeable and states he will call this LAKESHIA LOFTON with Hardeep's phone number after returning home. Reiterated option for pt to contact [employer] to ask questions and/or apply for assistance. Support: Offered presence and listened to patient's concerns. Pt stated thank you for caring. Jeison Bolton RN CM
[2019-11-19] MEDS: Albumin Human 25% (50 mL) 12.5 GM/50 ML IV.SOLN IV (16:45)
[2019-11-19 17:52] VITALS: BP 96/57; PULSE 90
--- NOTE | 2019-11-21 14:03 | CASEMGMT ---
brush stainer Coordination Follow-up: On 11/20/2019, call placed to Jane, Nurse Coordinator with Dr. Pineda's office by the RN ROLLY to clarify follow-up expectation for patient with Dr. Pineda and future paracentesis orders. Return call received via voicemail with need for patient to schedule a follow-up appointment. Jane stated she had messaged Dr. Pineda regarding additional paracentesis orders. Call placed to Pt. Voicemail received and message left instructing him to call Dr. Pineda's office to schedule follow-up appointment. Phone number to Dr. Pineda's office provided. This RN CM attempted to contact Jane and her voicemail received (message does state Jane is working from home and checking messages throughout the day). Message left explaining that the pt has been instructed to call their office to schedule an appointment. Offered this RN CM's phone number to call back for further details regarding teaching and changes pt has instituted. On 11/21/2019, call placed to patient. Pt states he has not yet called Dr. Pineda's office and was unclear regarding my message. Pt asked if he should call Mine or Jane. Pt instructed to call Mine (color adviser). Pt states the office closes in an hour so he will do call them right away. Will follow-up on Sunday with Jane re: appointment and future paracentesis orders. Jeison Bolton RN CM
--- NOTE | 2019-11-21 15:56 | CASEMGMT ---
landscaping crew leader Coordination Follow-up: Pt phoned this RN CM to state he did contact Mine, the scheduling desk, and then Jane at Dr. Pineda's office about scheduling a follow-up appointment. Pt states Jane reported that Dr. Pineda will be scheduling a couple of days of virtual visits next week and that she or Mine will contact him on Sunday with an appointment time. Pt with concerns regarding his itchy skin. States he had been taking the hydroxyzine previously but did not think it worked very well. Relayed that this medication does not work for all patients and that there are alternatives that may be available. Encouraged pt to discuss this with Dr. Pineda during his visit next week. Plan: Will follow-up with Pt next week to ensure he was able to secure an appointment with Dr. Pineda and determine plan for future paracenteses. Jeison Bolton RN CM
--- NOTE | 2019-11-28 15:54 | CASEMGMT ---
RN Care Coordination Follow-up: Received call on 11/27/[address] Pineda's RN Jane. Jane states pt has been referred by Dr. Pineda to the transplant team. This process will begin with an insurance verification, then pt will be contacted by the a nurse to set up appointments for initial testing and evaluation by multiple specialists. Discussed current plan and future paracentesis orders. Jane explained that Dr. Pineda would prefer for the transplant team to determine the frequency of paracenteses going forward but she would contact him for an order to get the pt by until he can be evaluated by the team. This order was received and given to Aguila in radiology. Jane stated there was not any changes in the patient's diuretic therapy. Attempted to contact patient via phone on this date but voicemail received. Message left requesting a return call today or this RN CM will call patient on 12/01/2019 to follow-up. Needs to address: 1. Follow-up on disability application (pt did not provide his insurance CM's phone number for this RN CM to contact.) 2. Itching: Was a new medication prescribed to assist with this? 3. Lactulose: Is this being taken more frequently? Is he having at least 3 BMs a day? 4. Diet/Fluid adherence: Did he lower his fluid intake? 5. Social Support: Will discuss with SW. Will continue to follow. Jeison Bolton, RN CM
== END ==
LOC: US 11:50 → MEDOUTP 13:18
PROVIDERS: PCP Family Medicine; Referring Provider Internal Medicine Gastroenterology; Visit Provider Internal Medicine Gastroenterology
DX: K70.11 Alcoholic hepatitis with ascites (principal)
CPT/HCPCS: 96365; 96366; 49083; P9047

== ENCOUNTER → 2019-12-04 | Outpatient (CLI) | payer OTHER, SELFPAY ==
[2019-11-19 13:42] VITALS: BMI 36.9
--- NOTE | 2019-12-04 12:01 | US_ITS ---
PROCEDURE: Ultrasound guided paracentesis. DATE OF EXAMINATION: 12/04/2019. INDICATION: Male, 54 years old. Ascites. PHYSICIAN: Demar Chamberlain M.D. TECHNIQUE: The risks, benefits, and alternatives to the procedure were explained to the patient. The specific risks of bleeding, infection, and damage to bowel were detailed and accepted. Witnessed informed consent was obtained. The abdomen was ultrasonographically surveyed. An appropriate pocket of fluid was identified at the right lower quadrant. The skin were cleaned and prepped in the usual sterile fashion. Using ultrasound guidance, the peritoneal cavity was accessed with a 5-Iraqi paracentesis needle/catheter system. The trocar was removed. A total of 10,000 ml of russel-colored fluid were removed from the peritoneal cavity. The catheter was removed and a sterile dressing was applied. The procedure was well tolerated. US/Paracentesis with US IMPRESSION: Ultrasound guided paracentesis. Electronically Signed: Demar Chamberlain, at 13:43 EDT , Service support ,
[2019-12-04 12:37] VITALS: BP 101/53; BP 119/47; BP 127/44; BP 128/53; BP 129/47; PULSE 82; PULSE 83; PULSE 87; RESP 18; TEMP 36.7; O2SAT 100
[2019-12-04 14:12] VITALS: BP 109/53; PULSE 83; RESP 18; TEMP 36.6; O2SAT 100; BMI 32.8
[2019-12-04] MEDS: Albumin Human 25% (100 mL) 25 GM/100 ML BAG IV ×2 (14:35→16:25)
--- NOTE | 2019-12-04 16:19 | CASEMGMT ---
RN Care Coordination Follow-up: Pt was met by this RN ROLLY in the radiology procedure room undergoing paracentesis. Pt states he has been doing ok but was becoming increasingly uncomfortable as he could tell he was filling with fluid. We reviewed the following: Diet: Pt states he continues to work at restricting his sodium/salt intake. He continues to not use the salt shaker and is eating the heart healthy [employer] [place] Soups. 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 He has difficulty standing for long periods of time to prepare food on the stove. He also has been eating salad with Faroese dressing. Reviewed Na content of Faroese salad dressings and found generally 2 tbsp contains approximately 300mg Na. Pt states he likely uses more than this amount on his salad. Alternatives including balsamic vinegar, oil/vinegar mixes discussed. Recommended Mrs. Kaur as a flavor alternative. Pt was less receptive to Mrs. Kaur but stated he does really like vinegar. This RN ROLLY will discuss with the dietitians if they would be available or able to see this patient for assistance. Fluid: Pt states he is struggling to keep his water intake down. Medications: Pt states he continues to take the spironolactone and lasix routinely. States he has not been taking the lactulose as it prevents him from going anywhere. Pt stated he could try and take it in the evenings. Pt states he did discuss his itching with Dr. Pineda last week during his virtual visit. Dr. Pineda prescribed him the hydroxyzine which he found out when he picked it up from the pharmacy. Pt states this medication has not been helping. Pt has not called Dr. Pineda's office to request a different medication. Encouraged pt to call Jane with Dr. Pineda for a different med order or bring this up to the rig mechanic when he returns their call (see below). Transplant Referral: Pt states he did receive a call from a nurse from the transplant team and that she left a message on his voicemail last week. Pt states it sounded like she wanted his life story. Pt states he has not called her back. Discussed reason for not calling her back including fears related to transplant, concerns regarding traveling to [place] for the work up, and generally not knowing what may be involved or how the surgery will go. Emotional support provided. This RN ROLLY and Rad RN Aguila encouraged patient to call transplant nurse to find out additional information so that he can make a knowledgeable decision and know what his options are. Explained that today's paracentesis was the last order from Dr. Pineda and was to get him through until he was evaluated by the transplant team who will be managing the frequency of future paracenteses. Explained to pt the reasons behind this process. Pt expressed understanding and stated he will call the transplant nurse tomorrow as he will be getting albumin the remainder of the afternoon and it will be after office hours when he returns home. Disability application: Pt states that today is his last pay check and he is unsure how much it will be. Pt states his landlord has told him that he will not put me out on the street. Pt states he did make a call to the insurance licensing supervisor since our last meeting and was connected with a different one than he is assigned. It was confimed that they did receive his paperwork prior to the deadline of today 12/03. He was unsure of what the next step in this process is to be. Pt denies contacting [employer] [facility]. Pt states he did discuss with Dr. Pineda if he could return to work. Per Pt, Dr. Pineda said they would discuss it in a month but he would not be able to lift more than 20 pounds. 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 Plan: This LAKESHIA LOFTON will follow-up with pt via phone next week to check on pt's calls to the transplant nurse, Dr. Pineda's nurse, and the insurance licensing supervisor. This RN ROLLY will contact the [employer] about dietitian consultation. Jeison Bolton RN CM
[2019-12-04] MEDS: Albumin Human 25% (50 mL) 12.5 GM/50 ML IV.SOLN IV (17:48)
[2019-12-04 18:46] VITALS: BP 109/50; PULSE 92; RESP 16; TEMP 36.4; O2SAT 100
== END | disposition home or self-care (01) ==
LOC: US 11:57 → MEDOUTP 13:50
PROVIDERS: PCP Family Medicine; Referring Provider Internal Medicine Gastroenterology; Visit Provider Internal Medicine Gastroenterology
CPT/HCPCS: 49083; P9047; A4216

== ENCOUNTER → 2019-12-18 11:59 | Outpatient (CLI) | payer OTHER, SELFPAY ==
[2019-12-04 14:12] VITALS: BMI 32.8
--- NOTE | 2019-12-18 | FLU_PTH ---
PATIENT: JACLYN JO LOC: [facility] U#:[id number] AGE/SX: 59/M ROOM: RE12/18/[address]: Dr. Todd Pineda MD : 1965 BED: DIS: SPEC #: [id number] RECD: 12/18/19 13:09 STATUS: PRICILA REYeni #: [id number] JAYMIE: 12/18/19 00:[address]: Todd Pineda DEPT: CYTOLOGY RECD BY: Leslie Durán ENTERED: 12/19/19 06:31 SP TYPE: Fluid OTHR DR: Dr. Jayesh Jeffers MD Tissues: PARACENTESIS FLUID Procedures: Special Stain Group II Surgery Specimen Level IV Cytospin Fluid HEADER OPERATION: Paracentesis PRE-OP DIAGNOSIS: Ascites TISSUE SUBMITTED: Paracentesis fluid for cytology DIAGNOSIS CYTOLOGY Paracentesis fluid for cytology (cytospin and cell block): Negative for malignant cells. AM:jemal 12/22/19 COMMENT Reference is made to the patient's previous paracentesis fluid for cytology ([id number] and C20-195) which were negative for malignancy. CYTOLOGY STUDY Slides are reviewed. CYTOLOGY GROSS Received is 85 ml of russel yellow cloudy fluid labeled with the patient's name and and designated per the requisition as paracentesis. Submitted for cytology preparation including cell block. / rg 12/19/19 TC:5 CPT: 73728, 50707
--- NOTE | 2019-12-18 | IMM_PTH ---
PATIENT: JACLYN JO LOC: [facility] U#:[id number] AGE/SX: 59/M ROOM: RE12/18/[address]: Dr. Todd Pineda MD : 1965 BED: DIS: SPEC #: [id number] RECD: 12/22/19 11:12 STATUS: PRICILA REQ #: [id number] JAYMIE: 12/18/19 00:[address]: Todd Pineda DEPT: IMMUNOHISTOCHEMISTRY RECD BY: Nella Hartmann ENTERED: 12/22/19 11:15 SP TYPE: IMMUNO OTHR DR: Dr. Jayesh Jeffers MD Tissues: PARACENTESIS FLUID Procedures: NAPSIN A (add) Gregg Ret (add) CK20 (add) CK5-6 (add) CK7 (add) TTF1 (add) Pankeratin (initial) P40 (add) PHYSICIAN & INSTITUTION [place] [id number] SPECIMEN INFORMATION: Tissue Source: Paracentesis fluid Clinical Info: Ascites Specimen Number: [id number] CPT code: 57568, 37570 x7 METHODOLOGY: Deparaffinized sections of prefer/formalin-fixed tissue or PAP/DQ stained slides are incubated with monoclonal/polyclonal antibodies/oligonucleotide probes. Localization is made via biotin free immunoperoxidase method. Appropriate controls are performed and reacted as expected. Results on target cell population are indicated in the following table: RESULTS: ANTIBODY / CLONE RESULT AE1-3 (AE1/AE3/PCK26) positive CK7 (OV-TL12/30) positive, rare cells CK20 (KS20.8) negative TTF-1 (8G7G3/1) negative Napsin A (Rabbit Polyclonal) negative CALRET (polyclonal) positive CK5-6 (D5 & 1684) positive, rare P40 (BC28) negative These tests were developed and their performance characteristics determined by [facility]. They may not have been cleared or approved by the U.S. Food and Drug Administration. The FDA has determined that such clearance or approval is not necessary. The above immunohistochemical/dualISH markers are ordered and reviewed by the Pathologist. INTERPRETATION: Paracentesis fluid: No evidence of malignancy. AM:jemal 12/23/19
--- NOTE | 2019-12-18 12:06 | US_ITS ---
PROCEDURE: Ultrasound guided paracentesis. DATE OF EXAMINATION: 12/18/2019. INDICATION: Male, 54 years old. Ascites. PHYSICIAN: Demar Chamberlain M.D. TECHNIQUE: The risks, benefits, and alternatives to the procedure were explained to the patient. The specific risks of bleeding, infection, and damage to bowel were detailed and accepted. Witnessed informed consent was obtained. The abdomen was ultrasonographically surveyed. An appropriate pocket of fluid was identified at the right lower quadrant. The skin were cleaned and prepped in the usual sterile fashion. Using ultrasound guidance, the peritoneal cavity was accessed with a 5-Nigerian paracentesis needle/catheter system. The trocar was removed. A total of 9950 ml of russel-colored fluid were removed from the peritoneal cavity. The catheter was removed and a sterile dressing was applied. The procedure was well tolerated. US/Paracentesis with US IMPRESSION: Ultrasound guided paracentesis. Electronically Signed: Demar Chamberlain, at 14:14 EDT , Service support ,
[2019-12-18 12:39] VITALS: BP 124/75; BP 125/86; BP 130/83; BP 132/72; BP 95/61; PULSE 81; PULSE 82; RESP 16; RESP 18; TEMP 36.9; O2SAT 100
[2019-12-18 13:56] LABS: Body Fluid Mononuclear WBC % 84.5 %; Body Fluid Polynuclear WBC # 0.011 10^3/uL; Body Fluid Polynuclear WBC % 15.5 %; Body Fluid Total Cells Counted 0.096 10^3/ul; White Blood Count/Body Fluid 0.071 10^3/uL
[2019-12-18 14:00] VITALS: BP 113/93; PULSE 82; RESP 14; TEMP 37.1; O2SAT 98; BMI 33.5
[2019-12-18] MEDS: Albumin Human 25% (100 mL) 25 GM/100 ML BAG IV ×4 (14:24→19:15)
[2019-12-18 14:33] LABS: Auto B Fluid Analyzer BKGD Ct COUNTS W/IN LIMITS (W/IN LIMITS); Color/Body Fluid LT YEL; Source- Body Fluid PERITONEAL FLUID
[2019-12-18 14:34] LABS: Appearance/Body Fluid CLEAR; Body Fluid QC Type(s) BF1Q,BF2Q; Lymphocytes 21 %; Mesothelial Cells 3 %; Monocytes 37 %; Neutrophil (Segs) 9 %
[2019-12-18 15:01] LABS: Red Cell Count/Body Fluid 125 /mm3
[2019-12-18 21:00] VITALS: BP 118/67; PULSE 78
[2019-12-19 13:22] LABS: Pathologist Comment/Body Fluid Reviewed
--- NOTE | 2019-12-23 15:15 | CASEMGMT ---
behavior interventionist Coordination Follow-up: Late entry: Follow-up call placed to patient on 12/12/2019. Voicemail received and message left requesting a return call. Current entry for 12/23/2019: A return call was not received from the previous attempt. Attempted to call patient on this date. Voicemail received and message left requesting a return call. Call placed to LAKESHIA Lara Nurse Coordinator with Dr. Pineda's office. Jane states she is no longer involved since pt has been referred to the transplant team. Phone number to the transplant nurses was provided ( ). This RN CM called this number and spoke with Harini who states Vj completed the intake on 12/11/2019. There have not been any subsequent appointments scheduled pending financial approval. Harini emailed this team for an update on the status of the financial approval and will call this RN CM when she receives a response. Regarding next paracentesis order: Harini states they will not order additional paracenteses until pt has been seen by their team. She states this was communicated to Vj on 12/12/2019. The order will need to come from Dr. Pineda's office. Jane did state that Dr. Pineda would provide additional orders if the patient does not proceed with a transplant or if needed. Plan: Follow-up with Harini regarding financial approval status and determine subsequent appointments and follow-up. Jeison Bolton RN CM
== END ==
LOC: US 12:00 → MEDOUTP 13:39
PROVIDERS: PCP Family Medicine; Referring Provider Internal Medicine Gastroenterology; Visit Provider Internal Medicine Gastroenterology
DX: K70.31 Alcoholic cirrhosis of liver with ascites (principal)
CPT/HCPCS: 96365; 96366; 49083; 87070; 87075; 87205; 88108; 88305; 88313; 88341; 88342; 89050; P9047; A4216

== ENCOUNTER → 2020-01-01 08:49 | Outpatient (CLI) | payer OTHER, SELFPAY ==
[2019-12-18 14:00] VITALS: BMI 33.5
--- NOTE | 2020-01-01 08:53 | US_ITS ---
PROCEDURE: Ultrasound guided paracentesis. DATE OF EXAMINATION: 01/01/2020. INDICATION: Male, 54 years old. Ascites. PHYSICIAN: Demar Chamberlain M.D. TECHNIQUE: The risks, benefits, and alternatives to the procedure were explained to the patient. The specific risks of bleeding, infection, and damage to bowel were detailed and accepted. Witnessed informed consent was obtained. The abdomen was ultrasonographically surveyed. An appropriate pocket of fluid was identified at the right lower quadrant. The skin were cleaned and prepped in the usual sterile fashion. Using ultrasound guidance, the peritoneal cavity was accessed with a 5-Lebanese paracentesis needle/catheter system. The trocar was removed. A total of 10,000 ml of russel-colored fluid were removed from the peritoneal cavity. The catheter was removed and a sterile dressing was applied. The procedure was well tolerated. US/Paracentesis with US IMPRESSION: Ultrasound guided paracentesis. Electronically Signed: Demar Chamberlain, at 10:35 EST , Service support ,
[2020-01-01 09:19] VITALS: BP 116/54; BP 119/52; BP 122/51; BP 133/58; BP 137/47; PULSE 85; PULSE 87; PULSE 89; PULSE 93; RESP 16; RESP 18; TEMP 36.6; O2SAT 100; O2SAT 99
--- NOTE | 2020-01-01 10:53 | ED.RN ---
When pt is asked how he is pt states Physically I'm doing ok, emotionally not so well. Pt explains that he's overwhelmed with information regarding what would be required of him if he were to get on the transplant list. Pt states I just don't think I could do it mentally. They'd need someone to live with me for 2 week and then someone to go up to [place] with me to appointments 2-3 times a week for a year. I just don't think I can do that LAKESHIA Levine replies That's ok Vj, you have the choice to not go through with it and if that's your choice, that's ok. You get to have that choice. The whole process is a lot to ask of you and a caregiver. Pt replies that his exwife would likely be the only person he could have help him as his other friends live outside the state. Pt was adamant that he would not be going to a residential after a transplant for any reason. LAKESHIA Levine talked extensively with patient that he has a choice and can choose to forgo the transplant and that is an ok option for him to choose. Pt was provided a lot of a emotional support and empathy. Pt mentioned wanting to reach out to case management with questions regarding his options, but not wanting to bother them LAKESHIA Levine told Vj that he can call them anytime, they are there to help manage his care.
[2020-01-01] MEDS: 0.9% Saline Lock 10 ML Syringe IV (11:07)
[2020-01-01] MEDS: Albumin Human 25% (100 mL) 25 GM/100 ML BAG IV ×4 (11:13→16:05)
[2020-01-01 11:19] VITALS: BP 126/62; PULSE 84; RESP 18; TEMP 36.8; O2SAT 100; BMI 33.5
[2020-01-01 11:47] LABS: Body Fluid Mononuclear WBC # 0.027 10^3/uL; Body Fluid Mononuclear WBC % 81.8 %; Body Fluid Polynuclear WBC # 0.006 10^3/uL; Body Fluid Polynuclear WBC % 18.2 %; Body Fluid Total Cells Counted 0.048 10^3/ul; White Blood Count/Body Fluid 0.033 10^3/uL
[2020-01-01 12:31] LABS: Auto B Fluid Analyzer BKGD Ct COUNTS W/IN LIMITS (W/IN LIMITS); Source- Body Fluid ASCITES FLUID
[2020-01-01 12:32] LABS: Appearance/Body Fluid CLEAR; Color/Body Fluid YELLOW; Red Cell Count/Body Fluid 132 /mm3
[2020-01-01 12:40] LABS: Body Fluid QC Type(s) BF1Q
[2020-01-01 12:44] LABS: Lymphocytes 13 %; Macrophages 63 %; Mesothelial Cells 10 %; Monocytes 5 %; Neutrophil (Segs) 9 %
[2020-01-01 17:56] VITALS: BP 117/46; PULSE 89; RESP 18; TEMP 37.1; O2SAT 100
[2020-01-02 13:46] LABS: Pathologist Comment/Body Fluid Reviewed
--- NOTE | 2020-01-05 14:00 | CASEMGMT ---
RN Care Coordination Follow-up: (Late entry for 01/01/2020 1430) [id number]-az-[id number] visit made with patient in the infusion suite during pt's albumin infusion. Pt was easily awoken and agreeable to visit. Pt relayed that he has been in contact with the transplant intake team and he is to provide them an answer on Sunday01/06/2020 with his answer regarding whether he wants to proceed or not proceed with the transplant evaluation. Supportive listening provided as pt described his concerns regarding the frequent follow-up lab draws and appointments that he would be required to attend in [place], not wanting to burden friends with needing to stay with him for two weeks after the surgery, and concerns regarding his son's feelings about his illness and potential demise. Pt relayed a previous experience at an AA meeting where they reiterated that he needed to stop drinking for himself and not for his family, etc.. Vj states he can apply this in this situation as he feels he should get the transplant for himself and not because of his son. Vj states he thinks that currently he has his mental health and not his physical health and feels that if he were to proceed with the rigors of the transplant that he would have his physical health but not his mental health. Vj stated he is 99% sure he is not going to proceed with the transplant. This RN CM expressed support to Vj regardless of which decision he would choose to proceed with and also provided reassurance that if he were to choose to not proceed that there are programs such as palliative care that would work with him to ensure his quality of life was maximized for as long as possible. Vj was receptive to this and stated he would be interesting in additional information on palliative care when he returns for his next paracentesis. Vj states that the transplant restorative coordinator had also talked to him about getting a GI physician closer to home if he were to decide to not proceed with the transplant. He stated he was aware of Dr. Harden and had seen him once in the past. Finances: Pt states he still has some money and he would find out today if he has a pay check that is deposited into his checking account or not. He also stated he has an option for his vacation time to be paid to him in one lump sum with a 28% tax or when he would take a vacation. He has selected the lump sum payment to help facilitate getting his car paid off and off-load monthly debt going forward. He also talked of a large amount of change that he would be able to roll as an additional resource. Vj states he continues to work with his insurance to complete paperwork for social security benefits. Will follow-up with pt regarding transplant decision and next steps. Jeison Bolton RN CM
--- NOTE | 2020-01-06 17:20 | CASEMGMT ---
RN Care Coordination Follow-up: Follow-up call placed to pt's home in response to pt's call requesting additional information regarding disability. Pt states he received a call from a correctional counselor/case manager that he was assigned to with the [employer]. Pt states his insurance company explained to him that they contract with this company to facilitate disability applications. Research performed and determined that the [employer] is a third republican who does provide assistance with disability applications and receipt of benefits. Explained this to patient as well as provided pt with the option to call the Social Security Office and file for disability on his own. Pt expressed fear of not understanding the process and preference to have someone assist him with the application and follow-up. Explained that the [employer] would provide this for him and that the assistance through the Social Security Office was not clear in this regard. Pt states he will call the correctional counselor/case manager back tomorrow and discuss the process with her in more detail. Discussed with Pt that today he had planned to call the transplant team and provide them with his decision regarding proceeding or not proceeding with an evaluation for transplant. Pt states he did call and states he requested his name to be removed from consideration. Pt states that Jessica instructed him to call Dr. Pineda's office scheduling ([facility]) to schedule a follow-up appointment with Dr. Pineda for future paracentesis and plan of care determination. Pt states he will contact [facility] tomorrow and schedule this follow-up. Symptoms: Pt states he has been coughing at times which has kept him up through the night but that it eventually goes away. Pt report the sputum to be clear and states he feels it likely due to post nasal drip. He continues to use the flonase nasal spray once a day. Pt states he is also still having issues with itching but it is not as bad. Pt states he stopped taking the hydroxyzine because it was not effective. Plan: Will continue to follow-up with patient for possible palliative care referral and plan of care determined with Dr. Pineda. Jeison Bolton RN CM
== END ==
LOC: US 08:50 → MEDOUTP 10:36
PROVIDERS: PCP Family Medicine
DX: R18.8 Other ascites (principal)
CPT/HCPCS: 96365; 96366; 49083; 87070; 87075; 87205; 89050; P9047; A4216

== ENCOUNTER → 2020-01-16 07:55 | Outpatient (CLI) | payer OTHER, SELFPAY ==
[2020-01-01 11:19] VITALS: BMI 33.5
--- NOTE | 2020-01-16 07:58 | US_ITS ---
PROCEDURE: ULTRASOUND GUIDED PARACENTESIS CLINICAL HISTORY: Male, 54 years old. ASCITES CONSENT: Yes Time-Out Called: Yes. Consent form signed: Yes. PT-PTT Levels Checked: Yes. SEDATION: None TECHNIQUE: Paracentesis FINDINGS: FLUID PRE-PROCEDURE A large amount of abdominal ascites identified. With ultrasound guidance a needle was inserted into this large amount of pleural effusion in the left lower quadrant and 12,000 cc of yellowish ascites was aspirated. After this patient was sent for a albumin transfusion. FLUID POST-PROCEDURE Significant ascites remained in the abdominal cavity following the 12,000 cc of fluid aspirated during paracentesis. US/Paracentesis with US IMPRESSION: A paracentesis was performed without incident and 12,000 cc of fluid was aspirated during the paracentesis. Electronically Signed: Pj Klein, at 13:22 EST Tel , Service support ,
[2020-01-16 08:09] VITALS: BP 117/57; BP 118/32; BP 127/59; BP 127/75; BP 130/64; BP 135/74; BP 148/77; PULSE 100; PULSE 105; PULSE 107; PULSE 93; PULSE 96; PULSE 98; RESP 16; RESP 18; O2SAT 100
[2020-01-16 10:02] VITALS: BP 101/64; PULSE 95; RESP 16; TEMP 36.1; O2SAT 100; BMI 33.5
[2020-01-16] MEDS: Albumin Human 25% (100 mL) 25 GM/100 ML BAG IV ×3 (10:05→13:08)
[2020-01-16 15:10] VITALS: BP 122/49; PULSE 92; RESP 16; O2SAT 100
--- NOTE | 2020-01-19 09:33 | NURSING ---
Pt had drainage of 12L on 01/16/2020. After drainage LAKESHIA Levine held pressure on paracentesis site for 15 minutes then applied dermabond which was ineffective, more pressure was held for 10 minutes, surgifoam was applied with an opsite over top, more pressure was applied. Pt was then instructed to hold pressure as he was transferred to wheelchair and down to infusion suites for Albumin infusion. When pt was transferred from wheelchair to infusion suite chair, LAKESHIA Levine assessed site for draining, surgifoam was almost completely soaked, but no drainage around the area. Pt was instructed to hold more pressure for 20 minutes.
--- NOTE | 2020-01-19 09:41 | NURSING ---
Pt contacted Radiology Nurses on 01/16/2020 at 1550 stating Gus Sheehan, I started leaking LAKESHIA Levine asked where pt was and if drainage just started. Pt stated he had just gotten home after his albumin infusion. LAKESHIA Levine told pt he would be called back after she could speak with another nurse regarding best course of action to stop drainage. Pt as called back at approximately 1600. LAKESHIA Levine told pt Vj you really only have a couple options unfortunately. Anything I do will no stop the drainage. I did all I could after your paracentesis and it actually stopped draining for 6-7 hours. I think your options are to hold a lot of pressure for 20-30 minutes and see if that will stop it, or go to the ER and see if they have any other solutions. Pt upset and does not want to come into ED stating They didn't do anything the last time I was there, they just sent me home, so what's the point? LAKESHIA Levine validated pt's concern and explained that dermabond and surgifoam are what we've used in the past and what we used this visit and neither worked, and she was out of ideas to assist patient. Pt was told Dr. Pineda's office would be contacted as early as possible on Sunday to see if he can have another paracentesis procedure as soon as possible. LAKESHIA Levine explained to patient that he still has 2-4L of ascites fluid in his abdomen and it has a large hole from which it can escape so that it what it is doing, until we can get him completely drained this will likely continue. This visit pt had a different interventional Radiologist who's technique includes using a scalpel to make way for the paracentesis catheter. That small difference in opening seems to have made the difference in the patient's drainage as it is usually able to be stopped even with 2-4L of ascites fluid remaining in his abdomen. LAKESHIA Levine informs patient that she can talk with the ER staff and make them aware he is coming in and can give a thorough history and help ER team to know this is not the patient's first choice and he has exhausted all options. Pt is agreeable to this. LAKESHIA Levine then goes to ED and speaked with ED team, ER physicians informed LAKESHIA Levine that if pt were to come in, they would likely put an ABD over the area and wrap it with an KAYDEN wrap, to which LAKESHIA Levine replied that would not work as patient has had this problem in the past with no success with simple dressings. ED physicians informed that a stitch to the area would not help and that it should continue draining with dressings changed out. LAKESHIA Levine then called the patient back to inform him of conversation with ED team. Pt states, So I'm going to be soaked all weekend with no end in sight? This is going to put me in the looney bin LAKESHIA Levine stated that unfortunately there were no options other than pressure and getting ahold of Dr. Pineda's office as soon as possible to get another drainage and get all the fluid out of his abdomen. Pt understands action plan and is still very upset that nothing can be done.
--- NOTE | 2020-01-19 09:57 | NURSING ---
Addendum entered by Geovanna Leonard 01/19/20 10:03: 12/19/2019 should state 01/09/2020 at 0917 Original Note: 12/19/2019 at 0917 pt contacted Radiology Nurses to update situation over the weekend. Pt was able to stop drainage 01/17/2020 at 0200, then pt had a dream he was scratching site, woke up and site had opened again. Pt then put a work belt directly over the area to attempt to stop the drainage. Pt states belt has helped, but he does has edema and an indentation where his belt has been. LAKESHIA Levine informed pt that she is calling Dr. Pineda's office to attempt to talk with director career to see if [facility] can have another order for another paracentesis as soon as possible. Pt is extremely upset that this is his current situation with no end in sight. LAKESHIA Levine states she is doing all she can and she is sorry this is the current situation. LAKESHIA Levine informs patient she is calling Dr. Pineda's nurse coordinator as soon as she gets off the phone with him and that she will call pt back today even if she does not hear back from the office. Pt is upset, but agreeable to plan. Pt states throughout the conversation This is Neptali's fault, this is because of that Dr. bernard did this and the hospital needs to fix it.
--- NOTE | 2020-01-19 14:27 | NURSING ---
PT BROUGHT INTO RADIOLOGY FOR SUTURE TO STOP LEAKING PARACENTESIS SITE FROM 01/15. SUTURE SET ASSEMBLED FOR DR KRUEGER. 2% LIDO INITIALLY USED LOCAL ANESTHETIC BUT Site kept bleeding. LIDO WITH EPI THEN USED TO BETTER MANAGE THE BLEEDING WHILE SUTURING. PRESSURE HELD FOR [address] KRUEGER. OPSITE APPLIED OVER SUTURES. PT AWARE HE MAY COME IN SOONER THAN NEXT PARACENTESIS TO HAVE SUTURES REMOVED IF NEED AND WATCH FOR ANY SIGNS OF INFECTION. PT SAT ON EDGE OF BED TO MONITOR FOR ANY LEAKING FOR 15 MINUTES. NO EVIDENCE OF LEAKING UNDER OR AROUND OPSITE.
== END ==
PROVIDERS: PCP Family Medicine; Referring Provider Internal Medicine Gastroenterology; Visit Provider Internal Medicine Gastroenterology
DX: R18.8 Other ascites (principal); K70.10 Alcoholic hepatitis without ascites; K70.30 Alcoholic cirrhosis of liver without ascites
CPT/HCPCS: 96365; 96366 ×4; 49083; P9047; A4216

== ENCOUNTER 2020-01-20 12:56 | Emergency (ER) | payer OTHER, SELFPAY ==
[2020-01-16 10:02] VITALS: BMI 33.5
[2020-01-20 12:57] VITALS: BP 134/72; PULSE 96; RESP 20; TEMP 36.6; O2SAT 100; BMI 39.2
--- NOTE | 2020-01-20 13:21 | ED.VISSUMM ---
- ER Visit Summary Date of Service: 01/20/20 Chief Complaint: Status post abdominal paracentesis for ascites from liver cirrhosis still leaking History of Present Illness: The patient is a 54 M known history of alcoholic liver cirrhosis with abdominal ascites. Patient had 12 L drained on Sunday here at the hospital. Also they did a semiopen technique and made an incision in his left lower quadrant. He has been leaking fluid since Sunday. He denies any fever or chills. We will the other day it was suture closed by the interventional radiologist. Physical Examination: Middle-aged male vital signs are stable he is afebrile. He does not look septic or toxic. He is in no distress. H EENT exam unremarkable. TMs are unremarkable. Neck nontender. Lungs scattered expiratory wheezes from smoking. No distress. Heart regular rhythm rate about 90 no murmur. Abdomen soft. Nontender. No peritoneal signs. Several liters of ascitic fluid with an ascitic fluid wave. Left lower quadrant is incision has been closed with sutures. There is leakage of clear ascitic fluid. There is no pus. No cellulitis. Patient moving all 4 extremities. He has bilateral lower extremity 2+ pitting edema which is chronic. Neurologically is awake and alert. He is walking. He is answering all questions. Test Results: None Emergency Department Course and Treatment: Patient is basically still leaking abdominal ascitic fluid from his recent paracentesis site. We are having the ostomy nurse come down to see if they can help some type of appliance or device to it to help catch the fluid which he can empty. At this time it does not appear to be infected. He is clinically stable. He already has a GI hepatology specialist at that he follows up with us. Also at this time the patient does not want a liver transplant. Treatment Plan: Follow-up with his advertising sales manager at . Follow-up with his scheduled paracentesis Ostomy nurse came down they will apply an ostomy bag it is catching is clear he yellowish drainage well. Patient will be discharged home. Disposition: Discharge Impression: Leakage of abdominal ascites from abdominal paracentesis site History of liver cirrhosis with ascites This note was generated with RedCapation software. It may contain incorrect words, spelling, and punctuation that were not noted in review of the chart prior to signing ED Disposition - Plan for ED Patient: Disposition: Home or Assisted Living Referrals: Aury,Jayesh, MD [Primary Care Provider] - As Needed Additional Instructions: Follow-up with your advertising sales manager. Follow-up with your next scheduled abdominal paracentesis. Empty the ostomy bag whenever three quarters full. Return if fever or feeling a lot worse.
--- NOTE | 2020-01-20 13:25 | ED.DEP ---
ED Disposition - Plan for ED Patient: Disposition: Home or Assisted Living Referrals: Jayesh Jeffers MD [Primary Care Provider] - As Needed Additional Instructions: Follow-up with your sustainability communicator. Follow-up with your next scheduled abdominal paracentesis. Empty the ostomy bag whenever three quarters full. Return if fever or feeling a lot worse.
--- NOTE | 2020-01-20 13:42 | CM.ED ---
Social Work Consult: Support Informant: LAKESHIA LOFTON Met with patient in room. Introduced self and sr. social media & mobile manager role. Sydnee ASHER CM has been following patient. This sr. social media & mobile manager to check in with patient current mental health status as per Sydnee patient was told yesterday to only have a year to live. Patient agreeable to speak with this sr. social media & mobile manager. This sr. social media & mobile manager inquiring about patient current mental health. Patient states it is not good. This sr. social media & mobile manager inquiring if patient has thought about suicide at all. Patient states oh no, not that bad. Patient states I want to live as long as I can. Patient states that patient doctor, Dr. Pineda has been pushing me to get a liver transplant. Patient states I don't have the support. This sr. social media & mobile manager inquiring if patient was able to establish support if patient would want a transplant. Patient states I don't want a liver transplant. This sr. social media & mobile manager inquiring about palliative care for patient. Patient reports to have spoken to Sydnee about this in the past. Sydnee then coming to patient room. Sydnee and patient speaking further about palliative care and current treatment plan for patient. Patient is unsure about palliative care with main reason being not wanting people in my home. Patient reports to have limited support in the community and to not be the best house keeper. This sr. social media & mobile manager and Sydnee attempting to explain palliative care for patient and the benefits that could be offered. Patient continues to be unsure. Patient denies referral for counseling or community mental health services. Patient reports to have a and that check in with me some. Patient reports to have transportation to home today. Active support and listening provided throughout conversation. Sydnee to continue to follow with patient for coordination of care. Reddy LAMBERT, HARDEEP
--- NOTE | 2020-01-20 14:06 | ED.RN ---
RAJAT MCDERMOTT RN, APPLIED OSTOMY BAG FOR PT AND INSTRUCTED PT ON USE.
--- NOTE | 2020-01-22 17:06 | CASEMGMT ---
reconcilement clerk Coordination Follow-up: Late entry for 01/21/2020: Call placed to Dr. Pineda's nurse coordinator Jane who referred this RN CM to speak with Dr. Pineda for plan of care determination. Dr. Pineda phoned this RN CM and explained that the pt's large amount of ascites accumulation is telling of decreasing liver function and that pt's increased Bili to 4 and elevated INR are also signs of worsening failure. He explained that increasing the number of paracentesis procedures will make the liver worse and result in a quicker physical decline of the patient and decrease his life expectancy. He states he is willing to provide a standing order for a every 2 week paracentesis but not any more frequent. He explained that the patient is not a candidate for a TIPS procedure due to the thickness of his liver and feels the patient would not survive this procedure. Dr. Pineda states a pleurex catheter could be considered but he was under the impression that the patient did not feel he could manage this and also had concerns with high risk for infection. At one point, he did say that increasing the frequency of the paracentesis could be ordered if the expected consequences were understood and agreed to. We discussed the patient's lack of a support system and lack of diet adherence including salt intake, fluid consumption and difficulty preparing meals. Dr. Pineda states he encourages fresh fruit, fresh vegetables, and meats. He mentioned consuming foods such as cottage cheese, yogurt, peanut butter and states that he would liberalize the sodium intake if the patient could increase his protein consumption. Continuation of care under Dr. Pineda discussed with Jane and Dr. Pineda who both state that Dr. Pineda will continue to manage the patient's liver disease but per Dr. Pineda he cannot function as the pt's PCP. Palliative Care: Dr. Pineda is receptive to palliative care referral. Per discussion with the patient in the ED on 01/20/2020, the patient was not willing to proceed with a palliative care referral at that time. Entry for 01/22/2020: Call placed to the patient. Pt states he is feeling much better than he was on 01/20/2020 and states he was in a dark place but he has been able to get out of that place now. Reassured patient that he will have good and bad days and that is to be expected. Encouraged patient to not be down on himself for having a bad day. Pt states the bag has been working well at containing the leakage of ascitic fluid and states he empties it a couple of times each evening. States it does not get completely full but to the 1/4 line they showed him. Pt states he has also been able to sleep much better. Finances: Pt states his last check was 12/04/2019. He states he continues to live off his life savings. He relayed relief that he did not have to make a car payment this month. Encouraged pt to call [employer] to begin application for assistance. Pt states he is most interested in a food card and is aware that he needs to call [employer]. He states he will call them. He also states he got a couple thousand dollar check from the government yesterday and was a refund from 2018 taxes. Pt expressed concern over not making his child support payments. Encouraged him to contact the Child Support Enforcement agency to relay his situation and see if an alternative arrangement can be made. He states he will as he would prefer to call them than to be called by them regarding missed payments. PCP follow-up: Pt states he did have a visit with his PCP Dr. Jeffers in the past month during which he got his pneumonia vaccine shot. He states he is to follow back up with him in 3 months. When this LAKESHIA LOFTON asked him about further management from Dr. Jeffers since he was closer, pt states I don't think he wants to do that. Pt states he may be interested in not following with Dr. Pineda in the future but also feels he should continue to follow with him since is already managing his medications. Fluid restriction: pt states he is drinking 80 oz of fluid a day (2400mL) and that this is the best he can do. I have to have my water. Palliative Care: Pt states he is willing to speak with palliative care and hear what they would be able to provide him. Supportive listening provided as pt expressed feelings related to the afterlife and uncertainties surrounding his eventual demise. Explained that palliative care has a sample clerk that is not dedicated to one restorationist and would be able to help him through these thoughts. Pt was interested in this assistance. Will contact Palliative Care with referral for follow-up. They are currently closed at this time. Jeison Bolton RN CM
== END 2020-01-20 14:48 | disposition home or self-care (01) ==
LOC: ED 14:46
PROVIDERS: Emergency Provider Emergency Medicine; PCP Family Medicine
DX: T81.89XA Other complications of procedures, not elsewhere classified, initial encounter (principal); K70.31 Alcoholic cirrhosis of liver with ascites; Z72.0 Tobacco use
CPT/HCPCS: 99282

== ENCOUNTER → 2020-01-29 08:53 | Outpatient (CLI) | payer OTHER, SELFPAY ==
[2020-01-20 12:57] VITALS: BMI 39.2
--- NOTE | 2020-01-29 08:59 | US_ITS ---
PROCEDURE: Ultrasound guided paracentesis. DATE OF EXAMINATION: 01/29/2020. INDICATION: Male, 54 years old. Ascites. PHYSICIAN: Demar Chamberlain M.D. TECHNIQUE: The risks, benefits, and alternatives to the procedure were explained to the patient. The specific risks of bleeding, infection, and damage to bowel were detailed and accepted. Witnessed informed consent was obtained. The abdomen was ultrasonographically surveyed. An appropriate pocket of fluid was identified at the left lower quadrant. The skin were cleaned and prepped in the usual sterile fashion. Using ultrasound guidance, the peritoneal cavity was accessed with a 5-Persian paracentesis needle/catheter system. The trocar was removed. A total of 12,050 ml of russel-colored fluid were removed from the peritoneal cavity. The catheter was removed and a sterile dressing was applied. The procedure was well tolerated. US/Paracentesis with US IMPRESSION: Ultrasound guided paracentesis. Electronically Signed: Demar Chamberlain, at 12:08 EST , Service support ,
[2020-01-29 09:12] VITALS: BP 108/54; BP 109/51; BP 119/51; BP 127/58; PULSE 81; PULSE 84; PULSE 85; PULSE 86; PULSE 88; RESP 20; RESP 22; RESP 32; TEMP 37; O2SAT 100; O2SAT 93
[2020-01-29 10:42] VITALS: BP 109/52; PULSE 87; RESP 18; TEMP 36.7; O2SAT 100; BMI 32.9
[2020-01-29] MEDS: DiphenhydrAMINE 25 MG Capsule PO (11:05)
[2020-01-29] MEDS: Albumin Human 25% (100 mL) 25 GM/100 ML BAG IV ×3 (11:30→14:36)
[2020-01-29 11:45] VITALS: BP 108/45; PULSE 86; RESP 18; TEMP 36.9; O2SAT 100
[2020-01-29 12:45] VITALS: BP 106/49; PULSE 83; RESP 18; TEMP 37.1; O2SAT 100
[2020-01-29 13:16] VITALS: BP 112/62; PULSE 88; RESP 18; TEMP 37; O2SAT 100
--- NOTE | 2020-01-29 15:14 | CASEMGMT ---
RN Care Coordination Follow-up: Late entry for 01/26/2020: Call placed to [facility] by this RN ROLLY. Referral discussed with Em and medical record documents faxed to her. 01/29/2020: This RN CM visited pt [id number] in the infusion suite during his albumin infusion. Pt states he has not heard from [facility] to set up a meeting. Will follow-up with pt early next week and if he has not received a call, will follow-up with [facility] regarding the status of his referral. Pt's only complaint at this time is itching. Pt states he is not currently taking any medication for this as it was not working. Pt denies any additional questions or needs on this date. Pt states he feels palliative care will be able to assist him. Will continue to monitor and follow-up. Jeison Bolton RN CM
--- NOTE | 2020-02-02 17:05 | CASEMGMT ---
RN Care Coordination Follow-up: This RN CM phoned pt. Pt states he did receive a call from [facility] but he missed the call and they left a voicemail. Pt states the message instructed him to call their scheduling line. Pt states he has not called yet but will tomorrow as he has had a lot of other errands to do today. Pt spoke at length about concerns regarding his mental health and an increasing amount of time of having dark thoughts and feeling alone especially given the restrictions with the COVID pandemic. Pt states he does have friends that he calls but he doesn't want to burden them. Pt states repeatedly that he does not want or have intentions of harming himself. Pt agrees to speak with palliative care about assistance with these issues and discuss his fears related to his eventual demise. Will also offer [facility] support at his next paracentesis/infusion visit. Pt explained that after his infusion last week, he did not feel well and had difficulty getting home. Pt states he arrived home and went right to bed (around 5:15pm) and slept until around 9:30pm. When he awoke, he states he did not feel well and went back to sleep around 2pm and slept until 1pm. He then felt better. States the only thing different during the transfusion was that he received Benadryl 25mg. Explained that this medication does cause drowsiness and is metabolized by his liver so it may not have cleared from his system very quickly and caused prolonged drowsiness. Pt states he does not want to take this in the future. Will continue to collaborate with patient for palliative care establishment. Jeison Bolton RN CM
== END ==
PROVIDERS: PCP Family Medicine; Referring Provider Internal Medicine Gastroenterology; Visit Provider Internal Medicine Gastroenterology
DX: K70.31 Alcoholic cirrhosis of liver with ascites (principal); K70.11 Alcoholic hepatitis with ascites; D64.9 Anemia, unspecified
CPT/HCPCS: 96365; 96366; 36430; 49083; 86850; 86900; 86901; 86920; 86922; J7040; P9040; P9047; A4216

== ENCOUNTER → 2020-02-11 09:59 | Outpatient (CLI) | payer OTHER, SELFPAY ==
[2020-01-20 12:57] VITALS: BMI 39.2
[2020-01-29 10:42] VITALS: BMI 32.9
--- NOTE | 2020-02-11 10:00 | US_ITS ---
PROCEDURE: Ultrasound guided paracentesis. DATE OF EXAMINATION: 02/11/2020. INDICATION: Male, 54 years old. Ascites. PHYSICIAN: Demra Chamberlain M.D. TECHNIQUE: The risks, benefits, and alternatives to the procedure were explained to the patient. The specific risks of bleeding, infection, and damage to bowel were detailed and accepted. Witnessed informed consent was obtained. The abdomen was ultrasonographically surveyed. An appropriate pocket of fluid was identified at the left lower quadrant. The skin were cleaned and prepped in the usual sterile fashion. Using ultrasound guidance, the peritoneal cavity was accessed with a 5-Bulgarian paracentesis needle/catheter system. The trocar was removed. A total of 12,050 ml of russel-colored fluid were removed from the peritoneal cavity. The catheter was removed and a sterile dressing was applied. The procedure was well tolerated. US/Paracentesis with US IMPRESSION: Ultrasound guided paracentesis. Electronically Signed: Demar Chamberlian, at 12:14 EST , Service support ,
[2020-02-11 10:11] VITALS: BP 113/59; BP 121/49; BP 121/56; BP 124/59; BP 129/66; BP 131/58; PULSE 79; PULSE 81; PULSE 84; PULSE 90; RESP 18; RESP 20; TEMP 36.4; TEMP 36.6; O2SAT 100
[2020-02-11 11:43] VITALS: BP 127/66; PULSE 81; RESP 16; TEMP 36.1; O2SAT 100; BMI 37.6
[2020-02-11] MEDS: Albumin Human 25% (100 mL) 25 GM/100 ML BAG IV ×3 (11:52→15:10)
== END ==
LOC: US 10:00 → MEDOUTP 11:35
PROVIDERS: PCP Family Medicine; Referring Provider Internal Medicine Gastroenterology; Visit Provider Internal Medicine Gastroenterology
DX: K70.31 Alcoholic cirrhosis of liver with ascites (principal); K70.11 Alcoholic hepatitis with ascites
CPT/HCPCS: 96365; 96366; 49083; P9047; A4216

== ENCOUNTER 2020-02-12 13:08 | Emergency (ER) | payer OTHER, SELFPAY ==
[2020-02-11 11:43] VITALS: BMI 37.6
[2020-02-12 13:10] VITALS: BP 144/68; PULSE 93; RESP 22; TEMP 36.6; O2SAT 99; BMI 32.8
--- NOTE | 2020-02-12 13:23 | ED.VIS.GEN ---
History of Present Illness Chief Complaint: Wound Check Informant: Patient Onset: Yesterday Narrative: Patient has a history of cirrhosis secondary to alcoholism. He had 12 L drained during a paracentesis yesterday. He presents back today stating that he is still draining fluid from the site. It does appear they had you Surgifoam over the wound. Patient states the last time he had to come in for this they put a bag over the area to catch the fluid. He denies pain. No drainage of pus. No fevers or chills. - Past Medical History (1) Alcoholic cirrhosis Status: Chronic (2) Anasarca Status: Chronic (3) Ascites Status: Chronic (4) HTN (hypertension) Status: Chronic Past Medical History - Allergies and Home Meds Allergies/Adverse Reactions: Allergies lisinopril Allergy (Verified 02/12/20 13:12) PT UNSURE OF REACTION acetaminophen [From Tylenol] Adverse Reaction (Verified 02/12/20 13:12) LIVER ISSUES codeine Adverse Reaction (Verified 02/12/20 13:12) Nausea hydrocodone [From Vicodin] Adverse Reaction (Verified 02/12/20 13:12) Itching Primary Care Physician: Jayesh Jeffers MD [Primary Care Provider] - Surgical History: - - Inguinal and umbilical hernia repair, colonoscopy, Cirrhosis Smoking Status: Current every day smoker Alcohol: None - Quit May 2019 - Family History Maternal Family History: Reports: Cancer - colon, Hypertension, Stroke, - Paternal Family History: Reports: Heart Disease, Hypertension, - Review of Systems General: Denies: Chills, Fever Eyes: Denies: Visual changes - bilaterally ENT: Denies: Bilateral ear pain Cardiovascular: Denies: Chest pain Respiratory: Denies: Dyspnea, Cough Gastrointestinal: Denies: Abdominal pain, Vomiting, Diarrhea Skin: Reports: Wounds Hematologic: Denies: Easy bruising, Easy bleeding Allergy: Denies: Uticaria Physical Exam Vital Signs/Narrative: Vital Signs Temp Pulse Resp BP Pulse Ox 02/12/20 13:10 97.9 F 93 22 H 144/68 H 99 Inital Vital Signs reviewed: Yes General: Well nourished, Well developed Head: Normocephalic Cardiovascular: Regular rate, Regular rhythm Respiratory: No distress, - - Mild expiratory wheezes. Abdomen: Soft, Hypoactive bowel sounds, - - Distended Skin: - - Previous puncture site to the left lower abdominal wall covered with Surgifoam. Drainage of rajput colored ascitic fluid through this. Neurological: Alert, Oriented x3 Psychological: Normal affect Diagnostic/Tx/Re-eval - Medical Decision Making Wound was cleansed. Nursing staff placed an ostomy bag around the site. On repeat evaluation fluid is collecting in the bag appropriately. He was advised how to empty the bag. Patient will call his liver specialist on Sunday. ED Disposition - Plan for ED Patient: Disposition: Home or Assisted Living Diagnosis: Visit for wound check Instructions: ED Wound Care Referrals: Jayesh Jeffers MD [Primary Care Provider] - Additional Instructions: As discussed, call your liver specialist on Sunday for close follow-up.
[2020-02-12 14:12] VITALS: RESP 17
--- NOTE | 2020-02-12 14:12 | ED.RN ---
wound drainage bag placed over top of pt's paracentesis site. pt tolerated well. bag collecting drainage per pt's request.
== END 2020-02-12 14:13 | disposition home or self-care (01) ==
PROVIDERS: Emergency Provider Emergency Medicine; PCP Family Medicine
DX: K70.31 Alcoholic cirrhosis of liver with ascites (principal); Z48.00 Encounter for change or removal of nonsurgical wound dressing; I10 Essential (primary) hypertension; Z79.899 Other long term (current) drug therapy; F17.200 Nicotine dependence, unspecified, uncomplicated
CPT/HCPCS: 99282

== ENCOUNTER → 2020-02-25 08:12 | Outpatient (CLI) | payer OTHER, SELFPAY ==
[2020-02-12 13:10] VITALS: BMI 32.8
--- NOTE | 2020-02-25 08:14 | US_ITS ---
PROCEDURE: Ultrasound guided paracentesis. DATE OF EXAMINATION: 02/25/2020. INDICATION: Male, 54 years old. Ascites. PHYSICIAN: Demar Chamberlain M.D. TECHNIQUE: The risks, benefits, and alternatives to the procedure were explained to the patient. The specific risks of bleeding, infection, and damage to bowel were detailed and accepted. Witnessed informed consent was obtained. The abdomen was ultrasonographically surveyed. An appropriate pocket of fluid was identified at the right lower quadrant. The skin were cleaned and prepped in the usual sterile fashion. Using ultrasound guidance, the peritoneal cavity was accessed with a 5-Argentine paracentesis needle/catheter system. The trocar was removed. A total of 11,800 ml of russel-colored fluid were removed from the peritoneal cavity. The catheter was removed and a sterile dressing was applied. The procedure was well tolerated. US/Paracentesis with US IMPRESSION: Ultrasound guided paracentesis. Electronically Signed: Demar Chamberlain, at 10:07 EST , Service support ,
[2020-02-25 08:37] VITALS: BP 117/56; BP 124/52; BP 97/40; BP 98/39; BP 98/40; PULSE 74; PULSE 75; PULSE 80; PULSE 82; RESP 24; RESP 26; TEMP 36.7; O2SAT 100; O2SAT 98
[2020-02-25 10:05] VITALS: BP 95/44; PULSE 78; RESP 16; TEMP 35.9; O2SAT 100; BMI 32.8
[2020-02-25] MEDS: 0.9% Saline Lock 10 ML Syringe IV (10:26)
[2020-02-25] MEDS: Albumin Human 25% (100 mL) 25 GM/100 ML BAG IV ×3 (10:27→13:37)
[2020-02-25 15:30] VITALS: BP 91/36; PULSE 83; RESP 16; TEMP 36.3; O2SAT 100
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
--- NOTE | 2020-02-27 16:19 | CASEMGMT ---
RN Care Coordination Follow-up: This RN CM received a return call from Sharmin Chavez EMOTIONALLY IMPAIRED TEACHER from [facility]. Reviewed Vj's situation with Sharmin and expected need for paracentesis prior to next scheduled appointment in two weeks as ordered. Sharmin then met with pt and after visit Sharmin phoned this RN with update. Pt is agreeable to Pleurx catheter insertion. Sharmin spoke with Dr. Pineda who was also agreeable to this being placed at or in [place]. This RN CM contacted nurse Annette with [facility] who states Dr. San would be able and available to place the catheter but would need a referral sent to their office. This RN CM emailed Dr. Pineda's nurse coordinator Jane requesting this order. Sharmin updated on these steps. Annette did state they do some teaching in the office but follow-up with home health may be desired to continue teaching. Will continue to follow for referral, coordination of Pleurx catheter placement, and pt education. Jeison Bolton RN CM
== END ==
LOC: US 08:13 → MEDOUTP 09:50
PROVIDERS: PCP Family Medicine; Referring Provider Internal Medicine Gastroenterology; Visit Provider Internal Medicine Gastroenterology
DX: K70.11 Alcoholic hepatitis with ascites (principal)
CPT/HCPCS: 96365; 96366; 49083; P9047; A4216

== ENCOUNTER 2020-03-04 14:28 | Observation (INO) | payer OTHER, SELFPAY ==
[2020-03-04] VITALS (8 sets, daily range): BP systolic 104–159; BP diastolic 49–90; PULSE 73–81; RESP 18–24; TEMP 36.2–36.6; O2SAT 96–100; BMI 38.3; BMI 38.4; BMI 48.4
--- NOTE | 2020-03-04 14:52 | EKG12_ITS ---
Test Reason : SOB Blood Pressure : / mmHG Vent. Rate : 072 BPM Atrial Rate : 072 BPM P-R Int : 176 ms QRS Dur : 090 ms QT Int : 422 ms P-R-T Axes : 071 061 048 degrees QTc Int : 462 ms Normal sinus rhythm Normal ECG Confirmed by BHANU MURRY, DANK ([id number]), editor school photograph LORELEI WEIR ([id number]) on 03/10/2020 6:18:57 AM Referred By: Todd San Confirmed By:DANK DRUMMOND MD
--- NOTE | 2020-03-04 14:53 | ED.VIS.GEN ---
History of Present Illness Chief Complaint: Shortness of Breath Informant: Patient Onset: Weeks - 1 Narrative: Patient sent in here by surgeon, Dr. San for admission, and plan pleurex tomorrow. Officially diagnosed with alcoholic cirrhosis this past May followed by hepatology at , [facility]. Has had multiple paracentesis most recent 1 week ago as an outpatient. He states he recently established with palliative care was referred to surgery for evaluation and seen in the office today. He reports fluid increasing since his procedure a week ago cough and shortness of breath. He states clear cough of liquid. Complains of pain left side. Denies fevers. Denies loss of taste or smell. Denies diarrhea. Denies anticoagulation medicines. He is on Lasix and spironolactone, he states he does not take his lactulose as he should. He has not drank alcohol since his diagnosis last May. Prior similar symptoms: Yes Past Medical History - Allergies and Home Meds Allergies/Adverse Reactions: Allergies lisinopril Allergy (Verified 03/04/20 13:37) PT UNSURE OF REACTION acetaminophen [From Tylenol] Adverse Reaction (Verified 03/04/20 13:37) LIVER ISSUES codeine Adverse Reaction (Verified 03/04/20 13:37) Nausea diphenhydramine [From Benadryl] Adverse Reaction (Verified 03/04/20 18:56) passed out Given with blood transfusion and pt states he passed out afterwards hydrocodone [From Vicodin] Adverse Reaction (Verified 03/04/20 13:37) Itching Past Medical History: - - Hypertension, alcoholic cirrhosis Surgical History: - - Inguinal and umbilical hernia repair, colonoscopy, Cirrhosis Smoking Status: Current every day smoker - Family History Maternal Family History: Reports: Cancer - colon, Hypertension, Stroke, - Paternal Family History: Reports: Heart Disease, Hypertension, - Review of Systems General: Denies: Chills, Fever, Sweats Eyes: Denies: Visual changes - bilaterally, Diplopia ENT: Denies: Rhinorrhea, Sore throat Cardiovascular: Denies: Chest pain, Palpitations Respiratory: Reports: Dyspnea, Cough. Denies: Dyspnea on exertion Gastrointestinal: Reports: Abdominal pain. Denies: Nausea, Vomiting, Diarrhea, Melena, Hematochezia Genitourinary: Denies: Dysuria, Hematuria, Frequency Musculoskeletal: Denies: Back pain, Extremity Pain Skin: Denies: Rash, Wounds Neurological: Denies: Headache, Weakness, Numbness Physical Exam Vital Signs/Narrative: Vital Signs Temp Pulse Resp BP Pulse Ox 03/04/20 14:28 97.8 F 77 20 H 118/57 L 100 Inital Vital Signs reviewed: Yes General: Well nourished, Well developed, No Acute Distress, - - Sitting in a chair for comfort. Head: Normocephalic, Atraumatic Eyes: Perrl, EOMI, Scleral icterus ENT: Moist mucous membranes, No rhinorrhea Neck: Supple, Nontender Cardiovascular: Regular rate, Regular rhythm, No murmurs Respiratory: No distress, CTA bilaterally, Chest nontender Abdomen: Soft, Nontender, Normal bowel sounds, - - Abdominal distention, there is a drainage bag right mid axillary abdomen with small amount of yellow fluid. There is no guarding or rebound. Back: Nontender, Normal Inspection Extremities: Nontender, No edema Skin: Normal color, No rash Neurological: Alert, Oriented x3, Cranial nerves II-XII grossly intact, Normal Strength, Normal Sensation Psychological: Normal affect, Normal Mood Diagnostic/Tx/Re-eval Clinical Impression(s) from Imaging Studies Chest X-Ray 03/04/20 15:11 IMPRESSION: Mild degree of increased markings at the lung bases worse on the left side. This may represent either atelectasis and/or early infiltrate. Electronically Signed: Demar Chamberlain, at 15:23 EST , Service support , Abnormal Lab Results 03/04/20 03/04/20 03/04/20 15:40 15:40 15:40 WBC 5.5 RBC 2.21 L Hgb 6.9 L Hct 20.7 L MCV 93.7 MCH 31.2 MCHC 33.3 RDW Std Deviation 53.1 H RDW Coeff of Pravin 15.6 H Plt Count 58 L MPV 10.7 Immature Gran % (Auto) 0.900 Neut % (Auto) 64.0 Lymph % (Auto) 14.9 L [place] % (Auto) 10.9 H Eos % (Auto) 8.2 H Baso % (Auto) 1.1 H Absolute Neuts (auto) 3.5 Absolute Lymphs (auto) 0.82 L Nucleated RBC % 0 Differential Comment SCANNED Platelet Estimate MOD DEC Hypochromasia 1+ Target Cells RARE Crenated Cell RARE PT 22.9 H INR 2.1 APTT 49.1 H Sodium 128 L Potassium 4.8 Chloride 101 Carbon Dioxide 22.0 Anion Gap 5 BUN 25 H Creatinine 1.50 H Estim Creat Clear Calc 52.02 Est GFR (MDRD) Af Amer 62 Est GFR (MDRD) Non-Af 52 L BUN/Creatinine Ratio 16.7 Glucose 108 H Calcium 7.8 L Total Bilirubin 3.70 H Direct Bilirubin 1.40 H AST 56 H ALT 30 Alkaline Phosphatase 214 H Troponin I < 0.015 Total Protein 6.5 Albumin 2.6 L Globulin 3.9 Lipase 233 - EKG Initial EKG Interpretation: Sinus Rhythm - Sinus rate of [address] or T wave changes. - Medical Decision Making Patient with history of alcoholic cirrhosis with recurrent ascites. Sent in here for work-up and admission prior to surgery. Reported some left upper abdominal discomfort EKG cardiac work-up negative. Labs noted chronic anemia hemoglobin 6.9, sodium 128, creatinine 1.5. Chest x-ray 1 views reviewed by myself left lower lobe atelectasis versus infiltrate. White count was normal. Was given dose of morphine for comfort. He has plan Pleurx placement tomorrow by surgery. I discussed with hospitalist Dr. Quiroga for admission. ED Disposition - Plan for ED Patient: Disposition: Acute Care Hospital [facility] Diagnosis: Alcoholic cirrhosis, Ascites, Chronic anemia, Hyponatremia
--- NOTE | 2020-03-04 15:11 | RAD_ITS ---
STUDY: X-RAY CHEST REASON FOR EXAM: Male, 54 years old. Cough, SOB TECHNIQUE: Single AP portable view of the chest. COMPARISON: Comparison is made with prior study dated 08/07/2019. FINDINGS: Mild degree of increased markings at the lung bases worse on the left side suggestive of either atelectasis and/or possible early left lower lobe infiltrate. There is no demonstrated pleural abnormality. Normal size heart. Normal mediastinum and sanju. Normal visualized pulmonary arteries. Normal visualized aortic arch and descending thoracic aorta. Normal visualized thoracic spine. Normal visualized ribs, clavicles, and shoulders. There is no demonstrated abnormality of the visualized soft tissue structures of the upper abdomen. RAD/Chest 1 View (Portable) IMPRESSION: Mild degree of increased markings at the lung bases worse on the left side. This may represent either atelectasis and/or early infiltrate. Electronically Signed: Demar Chamberlain, at 15:23 EST , Service support ,
[2020-03-04] MEDS: Morphine 4 MG/ML Syringe IV (15:57)
[2020-03-04 15:59] LABS: Absolute Lymphocyte Count 0.82 X10^3/uL (0.83-4.51); Absolute Neutrophil Count 3.5 X10^3/uL (2.0-7.7); Basophil# 0.06 X10^3/uL; Basophil% 1.1 % (0-1); Eosinophil# 0.45 X10^3/uL; Eosinophils% 8.2 % (0-5); Hematocrit 20.7 % (40-54); Hemoglobin 6.9 g/dL (13.0-16.5); Lymphocyte # 0.82 X10^3/ul (4.0); Lymphocyte % 14.9 % (19-41); Mean Corp Hgb Conc 33.3 g/dL (32-36); Mean Corpuscular Hgb 31.2 pg (27.0-32.0); Mean Corpuscular Volume 93.7 fL (80-94); Mean Platelet Vol. 10.7 fl (6.2-12.0); Monocyte% 10.9 % (0-10); NRBC Flagged by Analyzer 0 % (0-5); Neutrophil # 3.54 X10^3/uL (2.7-7.7); POSITIVE COUNT YES; Platelet Count 58 K/mm3 (150-450); RBC Distribution Width CV 15.6 % (11.6-14.6); RBC Distribution Width SD 53.1 fl (35.1-43.9); Red Blood Count 2.21 M/mm3 (4.6-6.2); White Blood Count 5.5 K/mm3 (4.4-11.0)
--- NOTE | 2020-03-04 16:09 | NURSING ---
1500 FAXED CHART TO CRISIS,,, DIDN'T GO THROUGH 1505 FAXED CHART TO CRISIS
[2020-03-04 16:22] LABS: AST(SGOT) 56 U/L (15-37); Alanine Aminotransfer ALT/SGPT 30 U/L (16-61); Albumin, Serum 2.6 g/dL (3.2-5.0); Alkaline Phosphatase 214 U/L (45-117); Anion Gap 5 (5-15); BUN 25 mg/dL (7-18); BUN/Creat Ratio 16.7 RATIO (10-20); Calcium,Total 7.8 mg/dL (8.5-10.1); Chloride 101 mmol/L (98-107); EST Glomerular Filtration Rate 52 mL/min (>60); Est Glom Filt Rate - Afr Amer 62 mL/min (>60); Estimated Creatinine Clearance 52.02 ml/min; Globulin 3.9 g/dL (2.2-4.2); Glucose 108 mg/dL (74-106); Lipase 233 U/L (73-393); Potassium 4.8 mmol/L (3.5-5.1); Protein, Total 6.5 g/dL (6.4-8.2); Sodium Level 128 mmol/L (136-145)
[2020-03-04 16:31] LABS: Differential Indicated SCAN CRITERIA MET
[2020-03-04 16:45] LABS: International Normalized Ratio 2.1; Partial Thromboplast Time 49.1 Seconds (24.1-36.2); Prothrombin Time (Protime)PT. 22.9 SECONDS (11.7-14.9)
[2020-03-04 16:48] LABS: Crenated RBC RARE; Differential Comment SCANNED; Hypochromasia 1+; Platelet Estimate MOD DEC (ADEQ)
[2020-03-04 16:49] LABS: Target Cells RARE
--- NOTE | 2020-03-04 18:17 | HP.PCM_ITS ---
Problem List (1) HTN (hypertension) Status: Chronic (2) Alcoholism Status: Chronic (3) Alcoholic cirrhosis Status: Chronic Qualifiers: Ascites presence: with ascites Qualified Code(s): K70.31 - Alcoholic cirrhosis of liver with ascites (4) Anasarca Status: Chronic (5) Ascites Status: Chronic Qualifiers: Ascites type: due to alcoholic cirrhosis Qualified Code(s): K70.31 - Alcoholic cirrhosis of liver with ascites (6) Hyponatremia Status: Chronic (7) PETER (acute kidney injury) Status: Acute (8) Bacteremia Status: Resolved (9) Abscess Status: Resolved (10) Anemia Status: Chronic History of Present Illness Date of Admission: 03/04/20 Chief Complaint: Ascites. The patient is a 54 year old M who presents to the emergency room due to increased abdominal swelling and shortness of breath. Patient was referred by general surgery for Pleurx catheter placement which is tentatively planned for tomorrow. Patient's most recent paracentesis was 1 week ago and 12 L was r emoved. Patient reports he was recently referred to palliative care and has just established. He denies fever. Reports chills. Reports general malaise. Reports left rib pain which occasionally extends to his left chest area. He has a past medical history of alcoholic cirrhosis with ascites requiring frequent paracentesis, chronic normocytic anemia, history of alcohol dependence, tobacco dependence, anxiety with panic attacks, hypertension, chronic thrombocytopenia. Past Medical History Past Medical History (Chronic Problems): Chronic Problems (Last Reviewed 03/04/20 @ 13:35 by Annette Santo) HTN (hypertension) (Chronic) Alcoholism (Chronic) Alcoholic cirrhosis (Chronic) Anasarca (Chronic) Ascites (Chronic) Hyponatremia (Chronic) Anemia (Chronic) Medical History: Medical History (Last Reviewed 03/04/20 @ 13:35 by Annette Santo) HTN (hypertension) (Chronic) I10 Alcoholism (Chronic) F10.20 Alcoholic cirrhosis (Chronic) K70.30 Anasarca (Chronic) R60.1 Ascites (Chronic) R18.8 Hyponatremia (Chronic) E87.1 PETER (acute kidney injury) (Inactive) N17.9 Bacteremia (Resolved) R78.81 Abscess (Acute) L02.91 Anemia (Chronic) D64.9 Allergies lisinopril Allergy (Verified 03/04/20 13:37) PT UNSURE OF REACTION acetaminophen [From Tylenol] Adverse Reaction (Verified 03/04/20 13:37) LIVER ISSUES codeine Adverse Reaction (Verified 03/04/20 13:37) Nausea hydrocodone [From Vicodin] Adverse Reaction (Verified 03/04/20 13:37) Itching Home Medications: Ambulatory Orders Medication Instructions Recorded Folic Acid 1 mg PO DAILY@0800 #30 tab 07/04/19 Ammonium Lactate 226 gm TP PRN PRN 10/08/19 Spironolactone 150 mg PO DAILY 02/11/20 Furosemide [Lasix] 40 mg PO BID 03/04/20 Surgical History: Surgical History (Last Updated 03/04/20 @ 13:35 by Annette Santo) History of hernia repair Z98.890, Z87.19 Surgical History: - - Inguinal and umbilical hernia repair, colonoscopy, Psychiatric History: Anxiety Lives: Alone Smoking Status: Current every day smoker Alcohol: Sober Drugs: None - *Family History Maternal History Items: Cancer - colon, Hypertension, Stroke Paternal History Items: Heart Disease, Hypertension Review of Systems Constitutional: Reports: Chills, Malaise, - - Weight gain, increased swelling. Denies: Fever HEENT: Denies: Head Aches, Sinus Congestion, Sinus Drainage Cardiovascular: Reports: Edema. Denies: Chest Pain, Palpitations, Syncope Respiratory: Reports: Shortness of Breath. Denies: Cough, Sputum production, Wheezing Gastrointestinal: Reports: - - Abdominal swelling. Denies: Nausea, Vomiting Genitourinary: Denies: Dysuria Musculoskeletal: Denies: Joint Pain, Joint Tenderness Skin: Reports: Jaundice. Denies: Rash, Wounds Neurological: Denies: Numbness, Tingling, Focal weakness Psychiatric: Reports: Anxiety Hematologic/ Lymphatic: Denies: Easy Bruising, Easy Bleeding VTE Information - Inpt Only VTE Present on Admission: No VTE Mechan Device Prophylaxis: SCD's VTE Pharm Prophylaxis ordered?: No Reason prophylaxis not ordered:: Medical Contraindication - Physical Exam Vitals/I&O's: Vital Signs Temp Pulse Resp BP Pulse Ox 97.2 F L 79 20 H 159/90 H 100 03/04/20 17:52 03/04/20 17:52 03/04/20 17:52 03/04/20 17:52 03/04/20 17:52 Oxygen Delivery Method Room Air Weight: 245 lb Body Mass Index (BMI) 38.3 General: Alert, Oriented x3, Cooperative, - - Appears ill, jaundice HEENT: Atraumatic, PERRLA, EOMI, Normocephalic Neck: Supple, No JVD, Negative Carotid Bruits Lungs: Clear to auscultation, Diminished Cardiovascular: Regular rate, No murmurs Abdomen: Bowel Sounds Present, Soft, Non Tender, - - Ascites Extremities: No clubbing, No cyanosis, - - Generalized edema Skin: No rashes, No breakdown Musculoskeletal: No Tenderness to Palpation of Joints or Extremities Neurological: Cranial nerves II-XII grossly intact, Neuro grossly intact Psych/Mental Status: Flat Affect Microbiology Past 72 Hours 03/04/20 15:40 Mucosa - Nose SARS-CoV-2 Antigen (Rapid) - Final Laboratory Results 03/04/20 15:40: WBC 5.5, RBC 2.21 L, Hgb 6.9 L, Hct 20.7 L, MCV 93.7, MCH 31.2, MCHC 33.3, RDW Std Deviation 53.1 H, RDW Coeff of Pravin 15.6 H, Plt Count 58 L, MPV 10.7, Immature Gran % (Auto) 0.900, Neut % (Auto) 64.0, Lymph % (Auto) 14.9 L, [place] % (Auto) 10.9 H, Eos % (Auto) 8.2 H, Baso % (Auto) 1.1 H, Absolute Neuts (auto) 3.5, Absolute Lymphs (auto) 0.82 L, Nucleated RBC % 0, Differential Comment SCANNED, Platelet Estimate MOD DEC, Hypochromasia 1+, Target Cells RARE, Crenated Cell RARE 03/04/20 15:40: PT 22.9 H, INR 2.1, APTT 49.1 H 03/04/20 15:40: Sodium 128 L, Potassium 4.8, Chloride 101, Carbon Dioxide 22.0, Anion Gap 5, BUN 25 H, Creatinine 1.50 H, Estim Creat Clear Calc 52.02, Est GFR (MDRD) Af Amer 62, Est GFR (MDRD) Non-Af 52 L, BUN/Creatinine Ratio 16.7, Glucose 108 H, Calcium 7.8 L, Total Bilirubin 3.70 H, Direct Bilirubin 1.40 H, AST 56 H, ALT 30, Alkaline Phosphatase 214 H, Troponin I < 0.015, Total Protein 6.5, Albumin 2.6 L, Globulin 3.9, Lipase 233 Assessment/Plan All Active Problems (Last Reviewed 03/04/20 @ 13:35 by Annette Santo) PETER (acute kidney injury) (Acute) Abscess (Resolved) Bacteremia (Resolved) 1. Ascites secondary to alcoholic cirrhosis-General surgery on consult with plans for Pleurx catheter placement 03/05/2020. Most recent paracentesis 02/25/2020 with approximately 12 L removed. Continue spironolactone, lactulose. IV Lasix. 2. Acute on chronic normocytic anemia-hemoglobin 6.9 on admission. Transfuse 1 unit PRBC. Trend CBC. 3. Acute kidney injury-we will attempt diuresis, trend BMP. 4. Hyponatremia-suspect secondary to hypervolemia. Treatment per above. 5. Thrombocytopenia, coagulopathy-secondary to #1. Avoid heparin products. Trend CBC. 6. Chronic alcohol dependence-reports he quit drinking May 2019. 7. Tobacco dependence-encouraged cessation. 8. Anxiety with panic attacks-recommend outpatient follow-up. 9. Hypertension-stable, continue spironolactone. DVT prophylaxis-SCDs CODE STATUS: Discussed in length with patient including differences between full code, DNR CCA and DNR CC. Patient elects to remain a full code at this time. This patient was seen by CHIDI Hernandez under the supervision of Dr. Quiroga.
[2020-03-04] MEDS: Morphine 2 MG/ML Syringe IV ×2 (18:59→22:10)
[2020-03-05] VITALS (15 sets, daily range): BP systolic 93–138; BP diastolic 36–80; PULSE 82–95; RESP 16–20; TEMP 36.4–37; O2SAT 93–100; BMI 48.4
[2020-03-05] MEDS: Morphine 2 MG/ML Syringe IV ×3 (01:48→20:32)
[2020-03-05] MEDS: Furosemide 40 MG/4 ML Vial IV ×4 (01:49→22:41)
[2020-03-05] MEDS: 0.9% Saline Lock 10 ML Syringe IV ×3 (05:51→20:32)
[2020-03-05 06:43] LABS: Absolute Lymphocyte Count 0.93 X10^3/uL (0.83-4.51); Absolute Neutrophil Count 2.7 X10^3/uL (2.0-7.7); Basophil# 0.05 X10^3/uL; Basophil% 1.1 % (0-1); Eosinophil# 0.42 X10^3/uL; Hematocrit 19.1 % (40-54); Hemoglobin 6.3 g/dL (13.0-16.5); Lymphocyte # 0.93 X10^3/ul (4.0); Mean Corpuscular Hgb 30.6 pg (27.0-32.0); Mean Corpuscular Volume 92.7 fL (80-94); Mean Platelet Vol. 9.4 fl (6.2-12.0); Monocyte# 0.54 X10^3/uL; Monocyte% 11.6 % (0-10); NRBC Flagged by Analyzer 0 % (0-5); Neutrophil # 2.69 X10^3/uL (2.7-7.7); Neutrophil % 57.7 % (47-70); POSITIVE COUNT YES; RBC Distribution Width CV 15.1 % (11.6-14.6); RBC Distribution Width SD 51.8 fl (35.1-43.9); Red Blood Count 2.06 M/mm3 (4.6-6.2); White Blood Count 4.7 K/mm3 (4.4-11.0)
[2020-03-05 06:46] LABS: Differential Indicated SCAN CRITERIA MET; Platelet Count 48 K/mm3 (150-450)
[2020-03-05 06:49] LABS: International Normalized Ratio 2.1; Prothrombin Time (Protime)PT. 23.5 SECONDS (11.7-14.9)
[2020-03-05 06:50] LABS: Partial Thromboplast Time 47.4 Seconds (24.1-36.2)
[2020-03-05 07:01] LABS: Differential Comment SCANNED; Hypochromasia 2+
[2020-03-05 07:04] LABS: ALB/GLOB Ratio 0.7 RATIO (0.9-2.4); AST(SGOT) 46 U/L (15-37); Alanine Aminotransfer ALT/SGPT 25 U/L (16-61); Albumin, Serum 2.3 g/dL (3.2-5.0); Alkaline Phosphatase 164 U/L (45-117); Anion Gap 3 (5-15); BUN 25 mg/dL (7-18); BUN/Creat Ratio 18.9 RATIO (10-20); Calcium,Total 7.7 mg/dL (8.5-10.1); Chloride 103 mmol/L (98-107); Creatinine, Serum 1.32 mg/dL (0.70-1.30); EST Glomerular Filtration Rate 60 mL/min (>60); Est Glom Filt Rate - Afr Amer 72 mL/min (>60); Estimated Creatinine Clearance 57.06 ml/min; Globulin 3.1 g/dL (2.2-4.2); Glucose 96 mg/dL (74-106); Magnesium 2.1 mg/dL (1.6-2.6); Potassium 4.6 mmol/L (3.5-5.1); Protein, Total 5.4 g/dL (6.4-8.2); Sodium Level 129 mmol/L (136-145)
[2020-03-05 07:11] LABS: Phosphorus 3.7 mg/dL (2.5-4.9)
--- NOTE | 2020-03-05 07:36 | PCM.PN.SRG ---
Patient Problems: Active and Suspected Problems (Last Reviewed 03/04/20 @ 13:35 by Annette Santo) PETER (acute kidney injury) (Acute) Subjective: Patient received a transfusion and plasma overnight - Physical Exam Vitals/I&O's: Vital Signs Temp Pulse Resp BP Pulse Ox 97.8 F 91 20 H 93/45 L 97 03/05/20 05:33 03/05/20 05:33 03/05/20 05:33 03/05/20 05:33 03/05/20 05:33 Oxygen Delivery Method Room Air Weight: 308 lb 10.354 oz Body Mass Index (BMI) 48.4 Intake and Output for Last 24 Hours 03/03/20 03/04/20 03/05/20 23:59 23:59 23:59 Intake Total 200 / 900 1100 / 1100 Balance 200 / 900 1100 / 1100 General: Alert, Oriented x3 Abdomen: Soft, Distended Neurological: Cranial nerves II-XII grossly intact Psych/Mental Status: Normal Affect Microbiology Past 72 Hours 03/04/20 15:40 Mucosa - Nose SARS-CoV-2 Antigen (Rapid) - Final Laboratory Results 03/04/20 15:40: WBC 5.5, RBC 2.21 L, Hgb 6.9 L, Hct 20.7 L, MCV 93.7, MCH 31.2, MCHC 33.3, RDW Std Deviation 53.1 H, RDW Coeff of Pravin 15.6 H, Plt Count 58 L, MPV 10.7, Immature Gran % (Auto) 0.900, Neut % (Auto) 64.0, Lymph % (Auto) 14.9 L, Burt % (Auto) 10.9 H, Eos % (Auto) 8.2 H, Baso % (Auto) 1.1 H, Absolute Neuts (auto) 3.5, Absolute Lymphs (auto) 0.82 L, Nucleated RBC % 0, Differential Comment SCANNED, Platelet Estimate MOD DEC, Hypochromasia 1+, Target Cells RARE, Crenated Cell RARE 03/04/20 15:40: PT 22.9 H, INR 2.1, APTT 49.1 H 03/04/20 15:40: Sodium 128 L, Potassium 4.8, Chloride 101, Carbon Dioxide 22.0, Anion Gap 5, BUN 25 H, Creatinine 1.50 H, Estim Creat Clear Calc 52.02, Est GFR (MDRD) Af Amer 62, Est GFR (MDRD) Non-Af 52 L, BUN/Creatinine Ratio 16.7, Glucose 108 H, Calcium 7.8 L, Total Bilirubin 3.70 H, Direct Bilirubin 1.40 H, AST 56 H, ALT 30, Alkaline Phosphatase 214 H, Troponin I < 0.015, Total Protein 6.5, Albumin 2.6 L, Globulin 3.9, Lipase 233 03/04/20 19:10: Blood Type O POSITIVE, Antibody Screen NEGATIVE, Crossmatch See Detail 03/05/20 06:19: WBC 4.7, RBC 2.06 L, Hgb 6.3 L, Hct 19.1 L, MCV 92.7, MCH 30.6, MCHC 33.0, RDW Std Deviation 51.8 H, RDW Coeff of Pravin 15.1 H, Plt Count 48 L*, MPV 9.4, Immature Gran % (Auto) 0.600, Neut % (Auto) 57.7, Lymph % (Auto) 20.0, Burt % (Auto) 11.6 H, Eos % (Auto) 9.0 H, Baso % (Auto) 1.1 H, Absolute Neuts (auto) 2.7, Absolute Lymphs (auto) 0.93, Nucleated RBC % 0, Differential Comment SCANNED, Diff Path Review May foll, Hypochromasia 2+ 03/05/20 06:19: Sodium 129 L, Potassium 4.6, Chloride 103, Carbon Dioxide 23.0, Anion Gap 3 L, BUN 25 H, Creatinine 1.32 H, Estim Creat Clear Calc 57.06, Est GFR (MDRD) Af Amer 72, Est GFR (MDRD) Non-Af 60, BUN/Creatinine Ratio 18.9, Glucose 96, Calcium 7.7 L, Magnesium 2.1, Total Bilirubin 4.90 H, AST 46 H, ALT 25, Alkaline Phosphatase 164 H, Total Protein 5.4 L, Albumin 2.3 L, Globulin 3.1, Albumin/Globulin Ratio 0.7 L 03/05/20 06:19: PT 23.5 H, INR 2.1, APTT 47.4 H 03/05/20 06:19: Phosphorus 3.7 Clinical Impression(s) from Imaging Studies Chest X-Ray 03/04/20 15:11 IMPRESSION: Mild degree of increased markings at the lung bases worse on the left side. This may represent either atelectasis and/or early infiltrate. Electronically Signed: Demar Chamberlain, at 15:23 EST , Service support , Current Medications Folic Acid (Folic Acid 1 Mg Tablet) 1 mg PO DAILY@0800 COUNTS INCLUDE 234 BEDS AT THE [facility] Last Admin: 03/05/20 07:03 Dose: Not Given Documented by: Furosemide (Furosemide 40 Mg/4 Ml Vial) 40 mg IV Q8 COUNTS INCLUDE 234 BEDS AT THE [facility] Last Admin: 03/05/20 05:52 Dose: 40 mg Documented by: Lactulose (Lactulose 20 Gm/30 Ml Udc) 20 gm PO Q6 COUNTS INCLUDE 234 BEDS AT THE [facility] Last Admin: 03/04/20 23:20 Dose: Not Given Documented by: Morphine Sulfate (Morphine 2 Mg/Ml Syringe) 2 mg IV Q3H PRN PRN PRN Reason: Pain Score 6-10 Last Admin: 03/05/20 05:52 Dose: 2 mg Documented by: Ondansetron HCl (Ondansetron 4 Mg/2 Ml Vial) 4 mg IV Q8H PRN PRN PRN Reason: NAUSEA/VOMITING Oxycodone HCl (Oxycodone 5 Mg Tablet) 5 mg PO Q4H PRN PRN PRN Reason: Pain Score 4-5 Sodium Chloride (0.9% Saline Lock 10 Ml Syringe) 10 - 40 ml IV UD PRN PRN Reason: SALINE FLUSH Last Admin: 03/05/20 05:51 Dose: 40 ml Documented by: Spironolactone (Spironolactone 50 Mg Tablet) 150 mg PO DAILY COUNTS INCLUDE 234 BEDS AT THE [facility] Medical Necessity - Tobacco Use Smoking Status: Current every day smoker Tobacco Use: Cigarettes Assessment/Plan All Active Problems (Last Reviewed 03/04/20 @ 13:35 by Annette Santo) PETER (acute kidney injury) (Acute) Abscess (Resolved) Bacteremia (Resolved) 54-year-old male with uncontrolled ascites due to alcoholic cirrhosis 1. The patient has severe ascites which reaccumulated very quickly due to his alcoholic cirrhosis. The patient saw me as an outpatient yesterday for Pleurx catheter placement into the abdomen after referral from his gastroenterology group. I discussed this with him in the office as well as the risks of bleeding, infection, decompensation after removing fluid, and the fact that this would be a permanent indwelling catheter. 2. I also discussed with the patient hospice care. The patient says he is involved in palliative care but he would like to remain full code and I did highly recommend that the patient have a discussion with the hospice nurses about the differences in palliative care and hospice as I believe the patient is definitely a hospice candidate. 3. The patient received PRBCs as well as plasma overnight. He is still severely anemic and thrombocytopenic. I believe that he is still safe to have this procedure as it is minimally invasive. The patient usually has over 10 L removed per week and I will remove some fluid in the operating room during the procedure. Todd San MD Pager: [facility] [address] [place] [address], [address] [place] [address] Office:
[2020-03-05] MEDS: Spironolactone 50 MG Tablet 150 MG PO (09:41)
--- NOTE | 2020-03-05 10:30 | CASEMGMT ---
Addendum entered by Teresa Simpson 03/05/20 15:54: Plan is now for pt to return home with hospice. Green sheet on chart. Original Note: Social Work Note SW reviewed chart. Pt has recently been established with Palliative Care. SIGIFREDO placed a call to [facility] and left message. SIGIFREDO received message from Jovita at [facility] stating pt is active with Palliative Care, Jovita aware that pt was going to get pleurex catheter placed. SIGIFREDO placed a call to back to [facility] and spoke with Jovita. SIGIFREDO updated Jovita that plan is for pt to get plerex catheter placed and plan is discharge home today. Jovita asked if HHC was going to be set up. SIGIFREDO received update that pt is refusing HHC, Jovita updated. Jovita states LAKESHIA Casanova was going to do teaching with pt as well but won't be available until next week to meet with pt. Teresa Simpson ACID CRANE OPERATOR, HIMS CLERK
--- NOTE | 2020-03-05 12:13 | OP.PCM_ITS ---
Problem List (1) Alcoholic cirrhosis Status: Chronic Qualifiers: Ascites presence: with ascites Qualified Code(s): K70.31 - Alcoholic cirrhosis of liver with ascites (2) Ascites Status: Chronic Qualifiers: Ascites type: due to alcoholic cirrhosis Qualified Code(s): K70.31 - Alcoholic cirrhosis of liver with ascites Report of Operation Date of Procedure: 03/05/20 Pre-Operative Diagnosis: Alcoholic cirrhosis with uncontrolled ascites Post-Operative Diagnosis: Same Surgery/Procedure Performed:: Ultrasound-guided intra-abdominal Pleurx catheter placement Description of Procedure: Patient was brought back to the operating room and the abdomen was prepped and draped in usual sterile fashion. Ultrasound was used to localize placed in the right abdominal sidewall that appeared to have a large amount of ascites behind it. Local anesthetic was administered to the skin and subcutaneous tissue as well as a counterincision inferior to this. 2 incisions were made with a scalpel. Through the superior incision, a needle was placed with negative pressure until ascites was aspirated. A guidewire was placed through this needle and the needle was removed leaving the catheter in place. The catheter was removed and a peel-away sheath was placed over the guidewire into the abdomen. The catheter was tunneled from the inferior incision to the superior incision and then placed through the peel-away catheter. The peel-away sheath was removed and the catheter was advanced into the abdomen. The catheter was sutured to the skin just inferior to the lower incision. The skin was sutured closed in the superior incision. Glue was placed over both incisions. The catheter was then placed to suction and 11 liters of serous fluid were removed. Patient tolerated the procedure well with no drop in blood pressure. The cathet er was then capped and the patient was taken to PACU in stable condition. Patient will be given an albumin bolus after surgery. Patient will be started on a diet. Grafts/Implants Used: Pleurx Catheter - Admit VTE Documentation VTE Mechan Device Prophylaxis: SCD's
[2020-03-05] MEDS: Albumin Human 25% (100 mL) 25 GM/100 ML BAG IV ×2 (15:04→17:11)
--- NOTE | 2020-03-05 15:10 | DCINST_ITS ---
- Discharge Diagnoses Current Active Problems: Current Active and Chronic Problems (Last Reviewed 03/04/20 @ 13:35 by Annette Santo) Chronic anemia (Chronic) HTN (hypertension) (Chronic) Alcoholism (Chronic) Alcoholic cirrhosis (Chronic) Anasarca (Chronic) Ascites (Chronic) Hyponatremia (Chronic) PETER (acute kidney injury) (Acute) Anemia (Chronic) You will use the following diet at home:: No restrictions Discharge Activity: Return to Normal Activity Call your doctor if you observe: Fever of 101 or Higher, Shortness of breath, Dizziness, Fainting spells, Chest pain Allergies/Adverse Reactions: Allergies lisinopril Allergy (Verified 03/04/20 13:37) PT UNSURE OF REACTION acetaminophen [From Tylenol] Adverse Reaction (Verified 03/04/20 13:37) LIVER ISSUES codeine Adverse Reaction (Verified 03/04/20 13:37) Nausea diphenhydramine [From Benadryl] Adverse Reaction (Verified 03/04/20 18:56) passed out Given with blood transfusion and pt states he passed out afterwards hydrocodone [From Vicodin] Adverse Reaction (Verified 03/04/20 13:37) Itching Medications to take at Discharge Folic Acid 1 mg PO DAILY@0800 #30 tab 07/04/19 Ammonium Lactate 226 gm TP PRN PRN 10/08/19 Spironolactone 150 mg PO DAILY 02/11/20 Furosemide [Lasix] 40 mg PO BID 03/04/20 Primary Care Physician: Jayesh Jeffers MD [Primary Care Provider] - Please follow up with your Primary Care Physician in: 1 Week Test Results: Test results from this visit will be discussed in further detail at your follow- up appointment, if applicable. Please Follow Up With: Todd San MD When: Call for follow up Proposed Discharge Date: 03/05/20
--- NOTE | 2020-03-05 15:14 | PCM.DC.SUM ---
Discharge Date and Diagnosis - Problem List Patient Problems: Active and Suspected Problems (Last Reviewed 03/04/20 @ 13:35 by Annette Santo) PETER (acute kidney injury) (Acute) Date of Admission: 03/04/20 Date of Discharge: 03/05/20 - Primary Discharge Diagnosis Acute Problems: Active Problems (Last Reviewed 03/04/20 @ 13:35 by Annette Santo) 1. Ascites secondary to alcoholic cirrhosis 2. Acute on chronic normocytic anemia 3. Acute kidney injury 4. Hyponatremia- secondary to hypervolemia. 5. Thrombocytopenia, coagulopathy-secondary to #1. 6. Chronic alcohol dependence 7. Tobacco dependence 8. Anxiety with panic attacks 9. Hypertension - Secondary Discharge Diagnosis Chronic Problems: Chronic Problems (Last Reviewed 03/04/20 @ 13:35 by Annette Santo) Chronic anemia (Chronic) HTN (hypertension) (Chronic) Alcoholism (Chronic) Alcoholic cirrhosis (Chronic) Anasarca (Chronic) Ascites (Chronic) Hyponatremia (Chronic) Anemia (Chronic) Hospital Course and Treatment Imaging Results: Diagnostic Data Chest X-Ray 03/04/20 15:11 IMPRESSION: Mild degree of increased markings at the lung bases worse on the left side. This may represent either atelectasis and/or early infiltrate. Electronically Signed: Demar Cintia, at 15:23 EST , Service support , Dr. San- General surgery Operations: None Procedures: - - Pleurx catheter placement Summary of Care Provided: The patient is a 54 year old M admitted 03/04/2020 due to worsening ascites. 1. Ascites secondary to alcoholic cirrhosis-General surgery, Dr. San on consult, s/p Pleurx catheter placement 03/05/2020. Most recent paracentesis 02/25/2020 with approximately 12 L removed. Continue spironolactone, lactulose, lasix. 11 L removed during Pleurx catheter placement. Patient received 60 g IV albumin. Follow-up with general surgery for further management and evaluation of Pleurx. Continue follow-up with palliative care. 2. Acute on chronic normocytic anemia-status post 2 unit PRBC. Recommend repeat CBC by PCP in 3 to 5 days. 3. Acute kidney injury-improved with diuresis. 4. Hyponatremia-secondary to hypervolemia. 5. Thrombocytopenia, coagulopathy-secondary to #1. 6. Chronic alcohol dependence-reports he quit drinking May 2019. 7. Tobacco dependence-encouraged cessation. 8. Anxiety with panic attacks-recommend outpatient follow-up. 9. Hypertension-stable, continue spironolactone. General: Alert, Oriented x3, Cooperative, no apparent distress HEENT: Atraumatic, PERRLA, EOMI, Normocephalic Neck: Supple, No JVD, Negative Carotid Bruits Lungs: Clear to auscultation, Diminished Cardiovascular: Regular rate, No murmurs Abdomen: Bowel Sounds Present, Soft, Non Tender, Ascites Extremities: No clubbing, No cyanosis, Generalized edema Skin: No rashes, No breakdown Musculoskeletal: No Tenderness to Palpation of Joints or Extremities Neurological: Cranial nerves II-XII grossly intact, Neuro grossly intact Psych/Mental Status: Flat Affect Patient seen and examined prior to discharge. Physical assessment as noted above. Patient is stable for discharge with follow up recommendations as noted above. This patient was seen by CHIDI Hernandez under the supervision of Dr. Vega. Patient Problems: Active and Suspected Problems (Last Reviewed 03/04/20 @ 13:35 by Annette Santo) PETER (acute kidney injury) (Acute) - Physical Exam Vitals/I&O's: Vital Signs Temp Pulse Resp BP Pulse Ox 98.5 F 83 20 H 112/44 L 98 03/05/20 14:53 03/05/20 14:53 03/05/20 14:53 03/05/20 14:53 03/05/20 14:53 Oxygen Delivery Method Room Air Weight: 308 lb 10.354 oz Body Mass Index (BMI) 48.4 Intake and Output for Last 24 Hours 03/03/20 03/04/20 03/05/20 23:59 23:59 23:59 Intake Total 200 / 900 1100 / 1100 Balance 200 / 900 1100 / 1100 Microbiology Past 72 Hours 03/04/20 15:40 Mucosa - Nose SARS-CoV-2 Antigen (Rapid) - Final Laboratory Results 03/04/20 15:40: WBC 5.5, RBC 2.21 L, Hgb 6.9 L, Hct 20.7 L, MCV 93.7, MCH 31.2, MCHC 33.3, RDW Std Deviation 53.1 H, RDW Coeff of Pravin 15.6 H, Plt Count 58 L, MPV 10.7, Immature Gran % (Auto) 0.900, Neut % (Auto) 64.0, Lymph % (Auto) 14.9 L, [place] % (Auto) 10.9 H, Eos % (Auto) 8.2 H, Baso % (Auto) 1.1 H, Absolute Neuts (auto) 3.5, Absolute Lymphs (auto) 0.82 L, Nucleated RBC % 0, Differential Comment SCANNED, Platelet Estimate MOD DEC, Hypochromasia 1+, Target Cells RARE, Crenated Cell RARE 03/04/20 15:40: PT 22.9 H, INR 2.1, APTT 49.1 H 03/04/20 15:40: Sodium 128 L, Potassium 4.8, Chloride 101, Carbon Dioxide 22.0, Anion Gap 5, BUN 25 H, Creatinine 1.50 H, Estim Creat Clear Calc 52.02, Est GFR (MDRD) Af Amer 62, Est GFR (MDRD) Non-Af 52 L, BUN/Creatinine Ratio 16.7, Glucose 108 H, Calcium 7.8 L, Total Bilirubin 3.70 H, Direct Bilirubin 1.40 H, AST 56 H, ALT 30, Alkaline Phosphatase 214 H, Troponin I < 0.015, Total Protein 6.5, Albumin 2.6 L, Globulin 3.9, Lipase 233 03/04/20 19:10: Blood Type O POSITIVE, Antibody Screen NEGATIVE, Crossmatch See Detail 03/04/20 19:10: Crossmatch See Detail 03/05/20 06:19: WBC 4.7, RBC 2.06 L, Hgb 6.3 L, Hct 19.1 L, MCV 92.7, MCH 30.6, MCHC 33.0, RDW Std Deviation 51.8 H, RDW Coeff of Pravin 15.1 H, Plt Count 48 L*, MPV 9.4, Immature Gran % (Auto) 0.600, Neut % (Auto) 57.7, Lymph % (Auto) 20.0, [place] % (Auto) 11.6 H, Eos % (Auto) 9.0 H, Baso % (Auto) 1.1 H, Absolute Neuts (auto) 2.7, Absolute Lymphs (auto) 0.93, Nucleated RBC % 0, Differential Comment SCANNED, Diff Path Review May foll, Hypochromasia 2+ 03/05/20 06:19: Sodium 129 L, Potassium 4.6, Chloride 103, Carbon Dioxide 23.0, Anion Gap 3 L, BUN 25 H, Creatinine 1.32 H, Estim Creat Clear Calc 57.06, Est GFR (MDRD) Af Amer 72, Est GFR (MDRD) Non-Af 60, BUN/Creatinine Ratio 18.9, Glucose 96, Calcium 7.7 L, Magnesium 2.1, Total Bilirubin 4.90 H, AST 46 H, ALT 25, Alkaline Phosphatase 164 H, Total Protein 5.4 L, Albumin 2.3 L, Globulin 3.1, Albumin/Globulin Ratio 0.7 L 03/05/20 06:19: PT 23.5 H, INR 2.1, APTT 47.4 H 03/05/20 06:19: Phosphorus 3.7 Current Medications Folic Acid (Folic Acid 1 Mg Tablet) 1 mg PO DAILY@0800 [facility] Last Admin: 03/05/20 07:03 Dose: Not Given Documented by: Furosemide (Furosemide 40 Mg/4 Ml Vial) 40 mg IV Q8 [facility] Last Admin: 03/05/20 15:02 Dose: 40 mg Documented by: Albumin Human () 25 gm in 100 mls @ 60 mls/hr IV X1 ONE Stop: 03/05/20 16:19 Albumin Human () 10 gm in 40 mls @ 60 mls/hr IV X1 ONE Stop: 03/05/20 16:59 Lactulose (Lactulose 20 Gm/30 Ml Udc) 20 gm PO Q6 [facility] Last Admin: 03/05/20 13:12 Dose: Not Given Documented by: Morphine Sulfate (Morphine 2 Mg/Ml Syringe) 2 mg IV Q3H PRN PRN PRN Reason: Pain Score 6-10 Last Admin: 03/05/20 05:52 Dose: 2 mg Documented by: Ondansetron HCl (Ondansetron 4 Mg/2 Ml Vial) 4 mg IV Q8H PRN PRN PRN Reason: NAUSEA/VOMITING Oxycodone HCl (Oxycodone 5 Mg Tablet) 5 mg PO Q4H PRN PRN PRN Reason: Pain Score 4-5 Sodium Chloride (0.9% Saline Lock 10 Ml Syringe) 10 - 40 ml IV UD PRN PRN Reason: SALINE FLUSH Last Admin: 03/05/20 05:51 Dose: 40 ml Documented by: Spironolactone (Spironolactone 50 Mg Tablet) 150 mg PO DAILY [facility] Last Admin: 03/05/20 09:41 Dose: 150 mg Documented by: Discharge Diet: No Restrictions Discharge Activity: Return to Normal Activity Call your doctor if you observe: Fever of 101 or Higher, Shortness of breath, Dizziness, Fainting spells, Chest pain Home Medications: Medications to take at Discharge Folic Acid 1 mg PO DAILY@0800 #30 tab 07/04/19 Ammonium Lactate 226 gm TP PRN PRN 10/08/19 Spironolactone 150 mg PO DAILY 02/11/20 Furosemide [Lasix] 40 mg PO BID 03/04/20 Primary Care Physician: Jayesh Jeffers MD [Primary Care Provider] - Please follow up with your Primary Care Physician in: 1 Week Please Follow Up With: Todd San MD When: Call for follow up Disposition: Home Minutes spent on discharge:: 35 Patient Condition:: Stable Medical Necessity - Tobacco Use Smoking Status: Current every day smoker Tobacco Use: Cigarettes Meaningful Use Info Meaningful Use Diagnoses (Choose all that apply): None applicable
--- NOTE | 2020-03-05 16:04 | PN_ITS ---
Patient Problems: Active and Suspected Problems (Last Reviewed 03/04/20 @ 13:35 by Annette Santo) PETER (acute kidney injury) (Acute) Subjective: Patient seen and examined. Underwent peritoneal Pleurx catheter placement with 11 L removed. Now amendable to hospice. - Physical Exam Vitals/I&O's: Vital Signs Temp Pulse Resp BP Pulse Ox 98.5 F 83 20 H 112/44 L 98 03/05/20 14:53 03/05/20 14:53 03/05/20 14:53 03/05/20 14:53 03/05/20 14:53 Oxygen Delivery Method Room Air Weight: 308 lb 10.354 oz Body Mass Index (BMI) 48.4 Intake and Output for Last 24 Hours 03/03/20 03/04/20 03/05/20 23:59 23:59 23:59 Intake Total 200 / 900 1100 / 1100 Balance 200 / 900 1100 / 1100 General: Alert, Oriented x3, Cooperative HEENT: Atraumatic, PERRLA, EOMI, Normocephalic Neck: Supple, No JVD, Negative Carotid Bruits Lungs: Clear to auscultation, Diminished Cardiovascular: Regular rate, No murmurs Abdomen: Bowel Sounds Present, Soft, Non Tender, Non-Distended, - - Ascites Extremities: No clubbing, No cyanosis, Capillary Refill Less than 3 Seconds, - - Generalized edema Skin: No rashes, No breakdown Musculoskeletal: No Tenderness to Palpation of Joints or Extremities Neurological: Cranial nerves II-XII grossly intact, Neuro grossly intact Psych/Mental Status: Flat Affect Microbiology Past 72 Hours 03/04/20 15:40 Mucosa - Nose SARS-CoV-2 Antigen (Rapid) - Final Laboratory Results 03/04/20 15:40: WBC 5.5, RBC 2.21 L, Hgb 6.9 L, Hct 20.7 L, MCV 93.7, MCH 31.2, MCHC 33.3, RDW Std Deviation 53.1 H, RDW Coeff of Pravin 15.6 H, Plt Count 58 L, MPV 10.7, Immature Gran % (Auto) 0.900, Neut % (Auto) 64.0, Lymph % (Auto) 14.9 L, [place] % (Auto) 10.9 H, Eos % (Auto) 8.2 H, Baso % (Auto) 1.1 H, Absolute Neuts (auto) 3.5, Absolute Lymphs (auto) 0.82 L, Nucleated RBC % 0, Differential Comment SCANNED, Platelet Estimate MOD DEC, Hypochromasia 1+, Target Cells RARE, Crenated Cell RARE 03/04/20 15:40: PT 22.9 H, INR 2.1, APTT 49.1 H 03/04/20 15:40: Sodium 128 L, Potassium 4.8, Chloride 101, Carbon Dioxide 22.0, Anion Gap 5, BUN 25 H, Creatinine 1.50 H, Estim Creat Clear Calc 52.02, Est GFR (MDRD) Af Amer 62, Est GFR (MDRD) Non-Af 52 L, BUN/Creatinine Ratio 16.7, Glucose 108 H, Calcium 7.8 L, Total Bilirubin 3.70 H, Direct Bilirubin 1.40 H, AST 56 H, ALT 30, Alkaline Phosphatase 214 H, Troponin I < 0.015, Total Protein 6.5, Albumin 2.6 L, Globulin 3.9, Lipase 233 03/04/20 19:10: Blood Type O POSITIVE, Antibody Screen NEGATIVE, Crossmatch See Detail 03/04/20 19:10: Crossmatch See Detail 03/05/20 06:19: WBC 4.7, RBC 2.06 L, Hgb 6.3 L, Hct 19.1 L, MCV 92.7, MCH 30.6, MCHC 33.0, RDW Std Deviation 51.8 H, RDW Coeff of Pravin 15.1 H, Plt Count 48 L*, MPV 9.4, Immature Gran % (Auto) 0.600, Neut % (Auto) 57.7, Lymph % (Auto) 20.0, [place] % (Auto) 11.6 H, Eos % (Auto) 9.0 H, Baso % (Auto) 1.1 H, Absolute Neuts (auto) 2.7, Absolute Lymphs (auto) 0.93, Nucleated RBC % 0, Differential Comment SCANNED, Diff Path Review May foll, Hypochromasia 2+ 03/05/20 06:19: Sodium 129 L, Potassium 4.6, Chloride 103, Carbon Dioxide 23.0, Anion Gap 3 L, BUN 25 H, Creatinine 1.32 H, Estim Creat Clear Calc 57.06, Est GFR (MDRD) Af Amer 72, Est GFR (MDRD) Non-Af 60, BUN/Creatinine Ratio 18.9, Gl ucose 96, Calcium 7.7 L, Magnesium 2.1, Total Bilirubin 4.90 H, AST 46 H, ALT 25, Alkaline Phosphatase 164 H, Total Protein 5.4 L, Albumin 2.3 L, Globulin 3.1, Albumin/Globulin Ratio 0.7 L 03/05/20 06:19: PT 23.5 H, INR 2.1, APTT 47.4 H 03/05/20 06:19: Phosphorus 3.7 Current Medications Folic Acid (Folic Acid 1 Mg Tablet) 1 mg PO DAILY@0800 [facility] Last Admin: 03/05/20 07:03 Dose: Not Given Documented by: Furosemide (Furosemide 40 Mg/4 Ml Vial) 40 mg IV Q8 [facility] Last Admin: 03/05/20 15:02 Dose: 40 mg Documented by: Albumin Human () 25 gm in 100 mls @ 60 mls/hr IV X1 ONE Stop: 03/05/20 16:19 Albumin Human () 10 gm in 40 mls @ 60 mls/hr IV X1 ONE Stop: 03/05/20 16:59 Lactulose (Lactulose 20 Gm/30 Ml Udc) 20 gm PO Q6 [facility] Last Admin: 03/05/20 13:12 Dose: Not Given Documented by: Morphine Sulfate (Morphine 2 Mg/Ml Syringe) 2 mg IV Q3H PRN PRN PRN Reason: Pain Score 6-10 Last Admin: 03/05/20 05:52 Dose: 2 mg Documented by: Ondansetron HCl (Ondansetron 4 Mg/2 Ml Vial) 4 mg IV Q8H PRN PRN PRN Reason: NAUSEA/VOMITING Oxycodone HCl (Oxycodone 5 Mg Tablet) 5 mg PO Q4H PRN PRN PRN Reason: Pain Score 4-5 Sodium Chloride (0.9% Saline Lock 10 Ml Syringe) 10 - 40 ml IV UD PRN PRN Reason: SALINE FLUSH Last Admin: 03/05/20 05:51 Dose: 40 ml Documented by: Spironolactone (Spironolactone 50 Mg Tablet) 150 mg PO DAILY [facility] Last Admin: 03/05/20 09:41 Dose: 150 mg Documented by: Medical Necessity - Tobacco Use Smoking Status: Current every day smoker Tobacco Use: Cigarettes Assessment/Plan All Active Problems (Last Reviewed 03/04/20 @ 13:35 by Annette Santo) PETER (acute kidney injury) (Acute) Abscess (Resolved) Bacteremia (Resolved) 1. Ascites secondary to alcoholic cirrhosis-General surgery, Dr. San on consult, s/p Pleurx catheter placement 03/05/2020. Most recent paracentesis 02/25/2020 with approximately 12 L removed. Continue spironolactone, lactulose, lasix. 11 L removed during Pleurx catheter placement. Patient received 60 g IV albumin. Follow-up with general surgery for further management and evaluation of Pleurx. Patient now amenable to hospice care. Plan for home with hospice tomorrow. 2. Acute on chronic normocytic anemia-status post 2 unit PRBC. Recommend repeat CBC by PCP in 3 to 5 days. 3. Acute kidney injury-improved with diuresis. 4. Hyponatremia-secondary to hypervolemia. 5. Thrombocytopenia, coagulopathy-secondary to #1. 6. Chronic alcohol dependence-reports he quit drinking May 2019. 7. Tobacco dependence-encouraged cessation. 8. Anxiety with panic attacks-recommend outpatient follow-up. 9. Hypertension-stable, continue spironolactone. DVT prophylaxis-SCDs This patient was seen by CHIDI Hernandez under the supervision of Dr. Vega.
--- NOTE | 2020-03-05 16:24 | CASEMGMT ---
This RN CM spoke with Annette from Dr. San's office regarding supplies for pleurx catheter. Annette provided forms from [employer] to facilitate order. This RN CM contacted [employer] and completed order via phone. states they would [employer] next day air them tomorrow after they confirmed payment with patient. Quote for patient's co-pay amount was stated to be $240.66 for one case of 10 1000cc canisters. They do not offer any patient financial assistance programs and will not ship until payment is provided. This RN CM to pt's room and met with pt [id number]. Pt able to answer questions appropriately and participate in conversation. Pt did begin to fall asleep at the end of the conversation. Discussed caring for the pleurx catheter including dressing changes to the site and fluid removal. Pt states he can attach the catheter to the canister as he did not feel this was going to be complicated. Pt did not have a plan for dressing changes. Discussed home health care but pt was not interested in having someone come out to his home. Explained the need to ensure he was able to appropriately change the dressing and attach the catheter to the canisters. Pt declined. Discussed the cost of the supplies. Pt states I can't pay that. This was all a waste. I might as well not have even gotten this. Explained to pt that if he was enrolled in hospice, that hospice would cover the cost of his supplies. Pt stated everyone wants me in hospice. Reinforced to pt that he is very ill and the support hospice would provide him would be beneficial. Pt then asked how long he had and how would he know when it was about at the end. This RN CM referred him to his doctors and the hospice staff to answer these questions. Pt agreeable to a hospice referral. This RN CM spoke with Dr. Vega who was agreeable to the hospice consult. This RN CM contacted Maida at [facility] and faxed referral information as requested. This RN CM also contacted LAKESHIA Bazan with Palliative Care. Informed her of hospice referral which she confirmed was received. States pt will be contacted by a Liaison tomorrow and a nurse should meet him at his home to ensure he is set up with everything that he needs. If transportation is an issue at discharge, hospice may be able to provide pt transportation home. Pt's car is likely on hospital property so pt's ability to drive home will need to be evaluated. Attempted to re-visit pt to outline referral process/DC plan but pt was sleeping. Will follow-up for final disposition/hospice involvement. Jeison Bolton RN CM
[2020-03-06] MEDS: Morphine 2 MG/ML Syringe IV (00:33)
[2020-03-06 02:52] VITALS: BP 99/36; PULSE 88; RESP 20; TEMP 36.8; O2SAT 94
[2020-03-06] MEDS: Furosemide 40 MG/4 ML Vial IV (06:40)
--- NOTE | 2020-03-06 09:43 | DCINST_ITS ---
- Discharge Diagnoses Current Active Problems: Current Active and Chronic Problems (Last Reviewed 03/04/20 @ 13:35 by Annette Santo) Chronic anemia (Chronic) HTN (hypertension) (Chronic) Alcoholism (Chronic) Alcoholic cirrhosis (Chronic) Anasarca (Chronic) Ascites (Chronic) Hyponatremia (Chronic) PETER (acute kidney injury) (Acute) Anemia (Chronic) You will use the following diet at home:: No restrictions Discharge Activity: Return to Normal Activity Allergies/Adverse Reactions: Allergies lisinopril Allergy (Verified 03/04/20 13:37) PT UNSURE OF REACTION acetaminophen [From Tylenol] Adverse Reaction (Verified 03/04/20 13:37) LIVER ISSUES codeine Adverse Reaction (Verified 03/04/20 13:37) Nausea diphenhydramine [From Benadryl] Adverse Reaction (Verified 03/04/20 18:56) passed out Given with blood transfusion and pt states he passed out afterwards hydrocodone [From Vicodin] Adverse Reaction (Verified 03/04/20 13:37) Itching Medications to take at Discharge Folic Acid 1 mg PO DAILY@0800 #30 tab 07/04/19 Ammonium Lactate 226 gm TP PRN PRN 10/08/19 Spironolactone 150 mg PO DAILY 02/11/20 Furosemide [Lasix] 40 mg PO BID 03/04/20 Test Results: Test results from this visit will be discussed in further detail at your follow- up appointment, if applicable. Please Follow Up With: Dell Xavier DO When: Home with Hospice at [place] Proposed Discharge Date: 03/06/20
--- NOTE | 2020-03-06 09:44 | DS.PCM_ITS ---
Discharge Date and Diagnosis - Problem List Patient Problems: Active and Suspected Problems (Last Reviewed 03/04/20 @ 13:35 by Annette Santo) PETER (acute kidney injury) (Acute) Date of Admission: 03/04/20 Date of Discharge: 03/06/20 - Primary Discharge Diagnosis Acute Problems: Active Problems (Last Reviewed 03/04/20 @ 13:35 by Annette Santo) 1. Ascites secondary to alcoholic cirrhosis 2. Acute on chronic normocytic anemia 3. Acute kidney injury 4. Hyponatremia- secondary to hypervolemia. 5. Thrombocytopenia, coagulopathy-secondary to #1. 6. Chronic alcohol dependence 7. Tobacco dependence 8. Anxiety with panic attacks 9. Hypertension - Secondary Discharge Diagnosis Chronic Problems: Chronic Problems (Last Reviewed 03/04/20 @ 13:35 by Annette Santo) Chronic anemia (Chronic) HTN (hypertension) (Chronic) Alcoholism (Chronic) Alcoholic cirrhosis (Chronic) Anasarca (Chronic) Ascites (Chronic) Hyponatremia (Chronic) Anemia (Chronic) Hospital Course and Treatment Imaging Results: Diagnostic Data Chest X-Ray 03/04/20 15:11 IMPRESSION: Mild degree of increased markings at the lung bases worse on the left side. This may represent either atelectasis and/or early infiltrate. Electronically Signed: Demar Cintia, at 15:23 EST , Service support , Dr. San- General surgery Operations: None Procedures: - - Pleurx catheter placement Summary of Care Provided: The patient is a 54 year old M admitted 03/04/2020 due to worsening ascites. 1. Ascites secondary to alcoholic cirrhosis-General surgery, Dr. San on consult, s/p Pleurx catheter placement 03/05/2020. Most recent paracentesis 02/25/2020 with approximately 12 L removed. Continue spironolactone, lactulose, lasix. 11 L removed during Pleurx catheter placement. Patient received 60 g IV albumin. Patient opted for home with hospice services at discharge. Hospice transition. 2. Acute on chronic normocytic anemia-status post 2 unit PRBC. 3. Acute kidney injury-improved with diuresis. 4. Hyponatremia-secondary to hypervolemia. 5. Thrombocytopenia, coagulopathy-secondary to #1. 6. Chronic alcohol dependence-reports he quit drinking May 2019. 7. Tobacco dependence-encouraged cessation. 8. Anxiety with panic attacks-recommended outpatient follow-up. 9. Hypertension-stable, continue spironolactone. General: Alert, Oriented x3, Cooperative, no apparent distress HEENT: Atraumatic, PERRLA, EOMI, Normocephalic Neck: Supple, No JVD, Negative Carotid Bruits Lungs: Clear to auscultation, Diminished Cardiovascular: Regular rate, No murmurs Abdomen: Bowel Sounds Present, Soft, Non Tender, Ascites Extremities: No clubbing, No cyanosis, Generalized edema Skin: No rashes, No breakdown Musculoskeletal: No Tenderness to Palpation of Joints or Extremities Neurological: Cranial nerves II-XII grossly intact, Neuro grossly intact Psych/Mental Status: Flat Affect Patient seen and examined prior to discharge. Physical assessment as noted above. Home with Hospice at discharge. This patient was seen by CHIDI Hernandez under the supervision of Dr. Vega. Patient Problems: Active and Suspected Problems (Last Reviewed 03/04/20 @ 13:35 by Annette Santo) PETER (acute kidney injury) (Acute) - Physical Exam Vitals/I&O's: Vital Signs Temp Pulse Resp BP Pulse Ox 98.2 F 88 20 H 99/36 L 94 03/06/20 02:52 03/06/20 02:52 03/06/20 02:52 03/06/20 02:52 03/06/20 02:52 Oxygen Delivery Method Room Air Weight: 308 lb 10.354 oz Body Mass Index (BMI) 48.4 Intake and Output for Last 24 Hours 03/04/20 03/05/20 03/06/20 23:59 23:59 23:59 Intake Total 200 / 900 1690 / 1690 1300 / 1300 Balance 200 / 900 1690 / 1690 1300 / 1300 Microbiology Past 72 Hours 03/04/20 15:40 Mucosa - Nose SARS-CoV-2 Antigen (Rapid) - Final Laboratory Results 03/04/20 19:10: Crossmatch See Detail 03/04/20 19:10: Crossmatch See Detail Current Medications Folic Acid (Folic Acid 1 Mg Tablet) 1 mg PO DAILY@0800 [facility] Last Admin: 03/05/20 07:03 Dose: Not Given Documented by: Furosemide (Furosemide 40 Mg/4 Ml Vial) 40 mg IV Q8 [facility] Last Admin: 03/06/20 06:40 Dose: 40 mg Documented by: Lactulose (Lactulose 20 Gm/30 Ml Udc) 20 gm PO Q6 [facility] Last Admin: 03/06/20 05:03 Dose: Not Given Documented by: Morphine Sulfate (Morphine 2 Mg/Ml Syringe) 2 mg IV Q3H PRN PRN PRN Reason: Pain Score 6-10 Last Admin: 03/06/20 00:33 Dose: 2 mg Documented by: Ondansetron HCl (Ondansetron 4 Mg/2 Ml Vial) 4 mg IV Q8H PRN PRN PRN Reason: NAUSEA/VOMITING Oxycodone HCl (Oxycodone 5 Mg Tablet) 5 mg PO Q4H PRN PRN PRN Reason: Pain Score 4-5 Sodium Chloride (0.9% Saline Lock 10 Ml Syringe) 10 - 40 ml IV UD PRN PRN Reason: SALINE FLUSH Last Admin: 03/05/20 20:32 Dose: 10 ml Documented by: Spironolactone (Spironolactone 50 Mg Tablet) 150 mg PO DAILY [facility] Last Admin: 03/05/20 09:41 Dose: 150 mg Documented by: Discharge Diet: No Restrictions Discharge Activity: Return to Normal Activity Call your doctor if you observe: Fever of 101 or Higher, Shortness of breath, Dizziness, Fainting spells, Chest pain Home Medications: Medications to take at Discharge Folic Acid 1 mg PO DAILY@0800 #30 tab 07/04/19 Ammonium Lactate 226 gm TP PRN PRN 10/08/19 Spironolactone 150 mg PO DAILY 02/11/20 Furosemide [Lasix] 40 mg PO BID 03/04/20 Primary Care Physician: Jayesh Jeffers MD [Primary Care Provider] - Please follow up with your Primary Care Physician in: 1 Week Please Follow Up With: Dell Xavier DO When: Home with Hospice at [place] Disposition: Home with Hospice Minutes spent on discharge:: 35 Patient Condition:: Fair Medical Necessity - Tobacco Use Smoking Status: Current every day smoker Tobacco Use: Cigarettes Meaningful Use Info Meaningful Use Diagnoses (Choose all that apply): None applicable
[2020-03-06 10:20] VITALS: BP 105/42; PULSE 88; RESP 16; TEMP 36.8; O2SAT 97
[2020-03-06] MEDS: Spironolactone 50 MG Tablet 150 MG PO (10:22)
[2020-03-06] MEDS: Folic Acid 1 MG Tablet PO (10:23)
--- NOTE | 2020-03-08 11:29 | CASEMGMT ---
LAKESHIA LOFTON Follow-up: Discharge follow-up call placed to patient. Pt states he did speak with hospice on Sunday but did not feel up to answering their questions. He states he has a call scheduled for today at 1pm with the hospice nurse. Pt states his biggest concern at this time is that his pleurx catheter is leaking at the insertion site. He states the dressing came off and was soaked. Pt states he has been keeping towels applied at the site and states a dressing would get saturated too quickly so does not feel reapplying a dressing will help. Encouraged pt to discuss this with the hospice nurse during the call today and if she is unable to help resolve the leaking to call Dr. San's office. Pt agreeable to this plan. Pt also questioned administration of the albumin. Instructed him to discuss this also with the hospice nurse. Explained that a hospice physician and the nurse will work together to facilitate the care plan going forward. Jeison Bolton RN CM
[2020-03-08 13:20] LABS: Pathologist Review Reviewed
== END 2020-03-06 10:43 | disposition hospice, home (50) ==
LOC: ED 15:01 → MS3 17:52
PROVIDERS: Anesthesiology; Nurse Practitioner Family; Admitting Provider Family Medicine; Emergency Provider Emergency Medicine; PCP Family Medicine; Referring Provider Surgery; Visit Provider Internal Medicine
PROC: (CPT 32550; principal; 2020-03-05 10:45)
DX: K70.31 Alcoholic cirrhosis of liver with ascites (principal); N17.9 Acute kidney failure, unspecified; E87.1 Hypo-osmolality and hyponatremia; F10.20 Alcohol dependence, uncomplicated; D69.59 Other secondary thrombocytopenia; D68.8 Other specified coagulation defects; D64.9 Anemia, unspecified; F17.210 Nicotine dependence, cigarettes, uncomplicated; I12.9 Hypertensive chronic kidney disease with stage 1 through stage 4 chronic kidney disease, or unspecified chronic kidney disease; F41.0 Panic disorder [episodic paroxysmal anxiety]; Z79.899 Other long term (current) drug therapy; N18.30 Chronic kidney disease, stage 3 unspecified
CPT/HCPCS: 00520; 32550; 36415; 36430; 71045; 80048; 80053; 80076; 83690; 83735; 84100; 84484; 85025; 85610; 85730; 86850; 86900; 86901; 86920; 86922; 87426; 93005; 96365; 96366; 96375; 96376; 99218; 99285; 99406; J7040; P9016; P9017; P9047; A4216; C1729; G0378; J1940

== ENCOUNTER 2020-03-19 10:30 | Inpatient (IN) | payer OTHER, SELFPAY ==
[2020-03-05 09:31] VITALS: BMI 48.4
[2020-03-19] VITALS (16 sets, daily range): BP systolic 83–134; BP diastolic 28–82; PULSE 69–96; RESP 15–22; TEMP 36–36.8; O2SAT 86–100; BMI 31.0; BMI 30.2; BMI 30.3
[2020-03-19] MEDS: 0.9% Normal Saline 1,000 ML 999 ML IV ×2 (11:00→13:03)
--- NOTE | 2020-03-19 11:17 | EKG12_ITS ---
Test Reason : SOB Blood Pressure : / mmHG Vent. Rate : 081 BPM Atrial Rate : 081 BPM P-R Int : 196 ms QRS Dur : 114 ms QT Int : 390 ms P-R-T Axes : 076 064 056 degrees QTc Int : 453 ms Normal sinus rhythm Normal ECG Confirmed by FOREST MURRY, BANG ([id number]), food editor AZIZA MCCLELLAN ([id number]) on 03/22/2020 12:14:18 PM Referred By: DARIAN Confirmed By:JORGE GARG MD
--- NOTE | 2020-03-19 11:18 | ED.VISSUMM ---
- ER Visit Summary Date of Service: 03/19/20 Chief Complaint: Shortness of breath and generalized weakness History of Present Illness: The patient is a 54 M 3 of liver cirrhosis and failure from alcoholism. Patient was a hospice patient but recently revoked his hospice and states that he wants to be safe. He told me if his heart stops or he stops breathing he does want defibrillation and/or CPR and/or a ventilator if needed. Patient states he has not felt well for the last several days. And is just got very weak and short of breath. He denies chest pain. He denies fever. He denies hemoptysis. He denies nausea, vomiting or diarrhea or melena. Physical Examination: Middle-aged male looks much older than stated age. Vital signs show a blood pressure 91/35 his pulse ox on oxygen is 96% on oxygen is nonhypoxic. He clinically looks ill. He clinically looks dehydrated. He may or may not be septic. He looks critically ill. H EENT exam dry mucous members. Neck nontender no JVD no lymphadenopathy. Lungs coarse breath sounds bilaterally. Heart regular rhythm rate about 86 no murmur. Abdomen obese. Ascites fluid. He has a drain on his right lateral abdominal wall which has straw-colored yellow ascites fluid. Currently there is no gross blood. It does not look purulent. Its not cloudy. He has mild tenderness around the ascites drain. There is no redness. There is no warmth. Otherwise no peritoneal signs. He is moving all 4 extremities. He has chronic edema both lower extremities 1+. Neurologically is awake. He answers questions and follows commands. He is mentally slow to respond but he seems to be accurate. Test Results: Chest x-ray portable 1 view interpreted by me shows no acute abnormality except possible free air underneath the right hemidiaphragm. Radiologist also read the film and agrees. CT abdomen pelvis was obtained shows a free air which is felt to be secondary to the surgical procedure he had done 2 weeks ago because there is no obvious cause of an intra-abdominal he. He also has left pleural effusion and abdominal ascites on CAT scan. EKG shows normal sinus rhythm rate 81. CBC shows an elevated white count of 21,900. Previously that was 4. Hemoglobin 8.7 which is his baseline. 5% bands. Chemistry shows a potassium of 6.6 with acute kidney injury with a BUN of 56 creatinine 1.94. Liver enzymes are normal. PT/INR of 21 and 2. Lactic acid 2.6. Covid is negative. Emergency Department Course and Treatment: Middle-aged male with liver failure that is hypotensive and dehydrated. May or may not be septic. He is receiving IV fluids. 2 IVs will be placed. He wants to be full go. He will undergo a septic work-up. Treatment Plan: Patient was treated with 2 L normal saline IV. Due to the white count possible sepsis he was started on broad-spectrum antibiotics IV Zosyn and IV vancomycin for potentially sepsis of uncertain etiology. Due to the hyperkalemia of 6.6 he was treated with calcium gluconate, IV bicarbonate, aerosol, IV insulin and IV dextrose. On repeat exam at 1520 he is doing much much better. His blood pressure remains over 100. With numerous readings of a systolic greater than 100. Clinically looks much improved and states he feels improved. The hospitalist is down to evaluate the patient at this time Disposition: None Impression: Acute hypotension Acute hypoxia Leukocytosis uncertain etiology Severe Sepsis of uncertain etiology Acute kidney injury with acute hyperkalemia Coagulopathy secondary to end-stage liver disease History of end-stage liver disease from alcoholism and liver cirrhosis This note was generated with [employer] software. It may contain incorrect words, spelling, and punctuation that were not noted in review of the chart prior to signing ED Disposition - Plan for ED Patient: Referrals: Jayesh Jeffers MD [Primary Care Provider] -
[2020-03-19 11:30] LABS: Hematocrit 24.7 % (40-54); Hemoglobin 8.7 g/dL (13.0-16.5); Mean Corp Hgb Conc 35.2 g/dL (32-36); Mean Corpuscular Hgb 33.2 pg (27.0-32.0); Mean Corpuscular Volume 94.3 fL (80-94); Mean Platelet Vol. 9.7 fl (6.2-12.0); POSITIVE COUNT YES; POSITIVE DIFFERENTIAL YES; POSITIVE MORPHOLOGY YES; Platelet Count 109 K/mm3 (150-450); RBC Distribution Width CV 16.1 % (11.6-14.6); RBC Distribution Width SD 56.3 fl (35.1-43.9); Red Blood Count 2.62 M/mm3 (4.6-6.2); White Blood Count 21.9 K/mm3 (4.4-11.0)
[2020-03-19 11:32] LABS: Differential Indicated MANUAL DIFF
[2020-03-19 11:36] LABS: Partial Thromboplast Time 43.7 Seconds (24.1-36.2); Prothrombin Time (Protime)PT. 21.9 SECONDS (11.7-14.9)
[2020-03-19 11:47] LABS: Lymphocyte 9 % (19-41); Monocyte 1 % (0-10); Myelocyte 1 (0-0); Neutrophil-Band 5 % (0-5); Neutrophil-Segmented 84 % (47-70); Total Cells Counted 100 (MANUAL DIFF)
[2020-03-19 11:48] LABS: ALB/GLOB Ratio 0.6 RATIO (0.9-2.4); AST(SGOT) 48 U/L (15-37); Alanine Aminotransfer ALT/SGPT 29 U/L (16-61); Albumin, Serum 2.1 g/dL (3.2-5.0); Alkaline Phosphatase 173 U/L (45-117); Anion Gap 6 (5-15); BUN 56 mg/dL (7-18); BUN/Creat Ratio 28.9 RATIO (10-20); Calcium,Total 7.9 mg/dL (8.5-10.1); Chloride 97 mmol/L (98-107); Creatinine, Serum 1.94 mg/dL (0.70-1.30); EST Glomerular Filtration Rate 38 mL/min (>60); Est Glom Filt Rate - Afr Amer 46 mL/min (>60); Estimated Creatinine Clearance 45.82 ml/min; Globulin 3.6 g/dL (2.2-4.2); Glucose 97 mg/dL (74-106); Hypochromasia 1+; Lactic Acid 2.6 mmol/L (0.4-1.9); Platelet Estimate SLT DEC (ADEQ); Potassium 6.6 mmol/L (3.5-5.1); Protein, Total 5.7 g/dL (6.4-8.2); Red Cell Morphology N CYTIC NORMAL (NORM C&C); Sodium Level 122 mmol/L (136-145)
[2020-03-19 11:49] LABS: Absolute Lymphocyte Count 1.97 X10^3/uL (0.83-4.51); Absolute Neutrophil Count 19.5 X10^3/uL (2.0-7.7); Lymphocyte # 1.97 X10^3/ul (4.0); Neutrophil # 19.49 X10^3/uL (2.7-7.7)
[2020-03-19] MEDS: Albuterol 2.5 MG/3 ML VIAL.NEB. INHALATION (12:03)
--- NOTE | 2020-03-19 12:07 | RAD_ITS ---
STUDY: X-RAY CHEST REASON FOR EXAM: Male, 54 years old. Increased SOB, fatigue, hx of hypertension TECHNIQUE: Single AP portable view of the chest. COMPARISON: Comparison is made with prior study dated 03/04/2020. FINDINGS: EKG electrodes are seen. Minimal bibasilar atelectasis. There is no demonstrated pleural abnormality. Normal size heart. Normal mediastinum and sanju. Normal visualized pulmonary arteries. Normal visualized aortic arch and descending thoracic aorta. Normal visualized thoracic spine. Normal visualized ribs, clavicles, and shoulders. I suspect a small amount of free air beneath the right hemidiaphragm. RAD/Chest 1 View (Portable) IMPRESSION: Minimal bibasilar atelectasis. I suspect a small amount of free air beneath the right hemidiaphragm. Electronically Signed: Demar Chamberlain MD at 12:53 EST , Service support ,
[2020-03-19] MEDS: Sodium Bicarbonate 8.4% 50 ML Syringe 50 MEQ IV (13:03)
[2020-03-19] MEDS: Insulin Lispro 5 UNIT in Syringe 0 ML 3 UNIT IV (13:04)
[2020-03-19] MEDS: Dextrose 50%-Water 25 GM/50 ML DISP.SYRIN IV (13:04)
[2020-03-19] MEDS: Calcium Gluconate 1 GM/10 ML Vial IV (13:04)
--- NOTE | 2020-03-19 13:50 | CT_ITS ---
STUDY: CT ABDOMEN AND PELVIS WITH CONTRAST REASON FOR EXAM: Male, 54 years old. FREE AIR, RT DIAPHRAGM RADIATION DOSAGE (If Supplied By Facility): CTDIvol = ( 22.36 ) mGy, DLP = ( 1222.59 ) mGycm TECHNIQUE: Transaxial images were obtained from the dome of the diaphragm to the symphysis pubis without oral contrast. IV 100mL Isovue-300 was administered. Sagittal and coronal images were reconstructed. Individualized dose optimization techniques were used for this CT. COMPARISON: Comparison is made with prior study dated 09/24/2019. FINDINGS: Minimal left pleural effusion with left basilar atelectasis and/or early infiltrate. Coronary artery calcification. Small amount of perihepatic and perisplenic fluid. Minimal amount of free air is seen beneath the right hemidiaphragm. A drainage catheter is seen within the lower abdomen. This may be the cause of the free air. Stable small hepatic cysts. There is a solitary gallstone. There is mild splenomegaly. Findings suggestive of a varicosities in the splenic hilum. Normal pancreas. Normal bilateral adrenal glands. Tiny nonobstructive calculus in the lower pole of the right kidney. Normal left kidney. Normal visualized stomach. Normal small intestine. Normal colon. The appendix is visualized and appears normal. Normal abdominal aorta. Normal inferior vena cava. There is borderline retroperitoneal lymphadenopathy with enlarged nodes no greater than 10mm in the short axis diameter. Nonspecific increased markings in the right of the mesentery most likely secondary to the free fluid. Normal urinary bladder. Minimal amount of free fluid is seen in the pelvis. Normal abdominal wall. Normal osseous structures. CT/Abdomen/Pelvis W IV Cont ONLY IMPRESSION: Small left pleural effusion with left basilar atelectasis. Small amount of perihepatic and perisplenic fluid as well as fluid within the pelvis. The small amount of free air beneath the right hemidiaphragm is most likely secondary to the drainage catheter seen within the abdomen. Electronically Signed: Demar Chamberlain MD at 14:33 EST , Service support ,
--- NOTE | 2020-03-19 15:07 | CM.ED ---
Social Work Consult: Support Informant: Self Referral Met with patient in room. Patient familiar to this professor of social work from prior interactions. Patient remembering working with this professor of social work and agreeable to speaking with this professor of social work at this time. Patient confirms to have been on hospice services and to have currently revoked hospice. Patient states I will get back on when I go home. Patient states I need hospice to help with medical coverage. Patient confirms to want to be a Full Code and everything done if patient heart would stop beating. This professor of social work inquiring if patient has any advanced directives completed. Patient denies having any advanced care planning documents completed and is not currently interested as I don't have anyone. Patient identifies friends, Ganga and Kaleigh Bowen as support but not for medical questions. This professor of social work inquiring if there is anyone that the medical team can call if patient would be in a situation where patient is unable to make own medical decisions, patient states sorry but no I don't. Patient states to currently be feeling a lot better since coming to the ED today. Patient is hoping to be able to be admitted to the hospital for medical management. Patient states to this professor of social work to still be able to care for self in the home. Active support and listening provided. PLAN: TBD. Social Work to continue to follow as needed. Reddy LAMBERT, HARDEEP
[2020-03-19 15:27] LABS: Reflex Lactate? Y
--- NOTE | 2020-03-19 16:20 | PCM.HP.STD ---
History of Present Illness Date of Admission: 03/19/20 Chief Complaint: Shortness of breath The patient is a 54 year old M with PMH as below who presents with shortness of breath and weakness. He states that he had peritoneal drain placed and yesterday started draining significantly and he was not getting any albumin from his home nurse notes he felt significantly weak today with muscle cramping and therefore presented to the hospital. In doing so he had revoked hospice. He states that he is on hospice because palliative care will not pay for the vacuum tubing to drain his ascites. I had an extensive conversation with him on the role of hospice and palliative care and I also discussed with him how severe his liver disease is and that he has a mortality rate of 20% over the next 3 months. He states that he had been offered a liver transplant in the past and turned it down he does not want to pursue a liver transplant. He states that he wants to come in to get potentially IV antibiotics for an infection as well as albumin and then when he is ready for discharge to be discharged back on hospice. Given that exchange I was in the 100% sure that he understood what hospice was so I discussed with him that hospice is for comfort care only and that they do not treat infections or perform any life-saving interventions their sole purpose is to manage symptoms and provide comfort. I also discussed CODE STATUS with him and he was adamant that he was to be a full code he believes that a DNR means that he would not get treatment despite my explanations. In the ER he had labs drawn and they were all abnormal his white blood cell count is 21.9 with a hemoglobin of 8.7 and a platelet count of 109 his sodium is 122 with potassium of 6.6 and a CO2 of 19 with a lactic acid of 2.6 and a creatinine of 1.94. His total bilirubin is at his baseline of 7.3 and he also has an INR of 2.0 without being on Coumadin. I discussed with him that all of these lab findings indicating end-stage liver disease with possible hepatorenal syndrome and I also discussed with him the implications but he still wanted to be admitted for antibiotics and albumin and then would go home on hospice less need to come back to the hospital in the future. Past Medical History Past Medical History (Chronic Problems): Chronic Problems (Last Reviewed 03/12/20 @ 12:54 by Annette Santo) Chronic anemia (Chronic) HTN (hypertension) (Chronic) Alcoholism (Chronic) Alcoholic cirrhosis (Chronic) Anasarca (Chronic) Ascites (Chronic) Hyponatremia (Chronic) Anemia (Chronic) Medical History: Medical History (Last Reviewed 03/12/20 @ 12:54 by Annette Santo) HTN (hypertension) (Chronic) I10 Alcoholism (Chronic) F10.20 Alcoholic cirrhosis (Chronic) K70.30 Anasarca (Chronic) R60.1 Ascites (Chronic) R18.8 Hyponatremia (Chronic) E87.1 PETER (acute kidney injury) (Acute) N17.9 Anemia (Chronic) D64.9 Abscess (Resolved) L02.91 Bacteremia (Resolved) R78.81 Allergies lisinopril Allergy (Verified 03/19/20 10:31) PT UNSURE OF REACTION acetaminophen [From Tylenol] Adverse Reaction (Verified 03/19/20 10:31) LIVER ISSUES codeine Adverse Reaction (Verified 03/19/20 10:31) Nausea diphenhydramine [From Benadryl] Adverse Reaction (Verified 03/19/20 10:31) passed out Given with blood transfusion and pt states he passed out afterwards hydrocodone [From Vicodin] Adverse Reaction (Verified 03/19/20 10:31) Itching Home Medications: Ambulatory Orders Medication Instructions Recorded Folic Acid 1 mg PO DAILY@0800 #30 tab 07/04/19 Spironolactone 150 mg PO DAILY 02/11/20 Furosemide [Lasix] 40 mg PO BID 03/04/20 Thiamine Mononitrate (Vit B1) 100 mg PO DAILY 03/19/20 [Vitamin B-1] Surgical History: Surgical History (Last Updated 03/12/20 @ 12:56 by Annette Santo) Chloé choux cateter Onset Date: ~03/05/20 History of hernia repair Z98.890, Z87.19 Surgical History: - - Inguinal and umbilical hernia repair, colonoscopy, Psychiatric History: Anxiety Smoking Status: Current every day smoker Tobacco Use: Cigarettes Alcohol: None Drugs: None - *Family History Maternal History Items: Cancer - colon, Hypertension, Stroke Paternal History Items: Heart Disease, Hypertension Review of Systems Constitutional: Reports: Weakness. Denies: Chills, Fever, Weight Change HEENT: Denies: Head Aches, Sinus Congestion, Sinus Drainage Cardiovascular: Denies: Chest Pain, Palpitations Respiratory: Reports: Shortness of Breath. Denies: Cough, Shortness of breath at rest, Sputum production Gastrointestinal: Denies: Abdominal Pain, Nausea, Vomiting Genitourinary: Denies: Dysuria Musculoskeletal: Denies: Joint Pain, Joint Tenderness Skin: Denies: Rash, Wounds Neurological: Denies: Numbness, Tingling, Focal weakness Psychiatric: Denies: Anxiety, Depression Hematologic/ Lymphatic: Denies: Easy Bruising, Easy Bleeding VTE Information - Inpt Only VTE Present on Admission: No - Physical Exam Vitals/I&O's: Vital Signs Temp Pulse Resp BP Pulse Ox 97.0 F L 69 19 H 107/56 L 97 03/19/20 15:01 03/19/20 15:01 03/19/20 15:01 03/19/20 15:01 03/19/20 15:01 Oxygen Flow Rate (L/min) 0 Oxygen Delivery Method Nasal Cannula Weight: 222 lb 10.67 oz Body Mass Index (BMI) 31.0 Intake and Output for Last 24 Hours 03/17/20 03/18/20 03/19/20 23:59 23:59 23:59 Intake Total 2099.2099. Balance 2099.2099. General: Alert, Oriented x3, Cooperative, No apparent distress HEENT: Atraumatic, PERRLA, EOMI, Normocephalic Oral: Dry Mucosa Neck: Supple, No JVD Lungs: Clear to auscultation, Normal air movement, No rhonchi, No wheeze, No rales, Diminished Cardiovascular: Regular rate, Regular Rhythm, Normal S1, Normal S2, No murmurs Abdomen: Soft, Non Tender, Non-Distended, No Hepato-splenomegaly Extremities: Capillary Refill Less than 3 Seconds, Edema - 2+ pitting bilaterally Skin: - - Bronzing of the skin throughout his entire body, scleral icterus Neurological: Neuro grossly intact, Sensory exam intact to light touch and pain Psych/Mental Status: Flat Affect Microbiology Past 72 Hours 03/19/20 11:14 Mucosa - Nose SARS-CoV-2 Antigen (Rapid) - Final Laboratory Results 03/19/20 11:00: WBC 21.9 H, RBC 2.62 L, Hgb 8.7 L, Hct 24.7 L, MCV 94.3 H, MCH 33.2 H, MCHC 35.2, RDW Std Deviation 56.3 H, RDW Coeff of Pravin 16.1 H, Plt Count 109 L, MPV 9.7, Neut % (Auto) Not Reportable, Absolute Neuts (auto) 19.5 H, Absolute Lymphs (auto) 1.97, Total Counted 100, Neutrophils % (Manual) 84 H, Band Neutrophils % 5, Lymphocytes % (Manual) 9 L, Monocytes % (Manual) 1, Myelocytes % 1 H, Diff Path Review June foll, Platelet Estimate SLT DEC, RBC Morphology N CYTIC, Hypochromasia 1+ 03/19/20 11:00: PT 21.9 H, INR 2.0, APTT 43.7 H 03/19/20 11:00: Sodium 122 L, Potassium 6.6 H*, Chloride 97 L, Carbon Dioxide 19.0 L, Anion Gap 6, BUN 56 H, Creatinine 1.94 H, Estim Creat Clear Calc 45.82, Est GFR (MDRD) Af Amer 46 L, Est GFR (MDRD) Non-Af 38 L, BUN/Creatinine Ratio 28.9 H, Glucose 97, Calcium 7.9 L, Total Bilirubin 7.30 H, AST 48 H, ALT 29, Alkaline Phosphatase 173 H, Total Protein 5.7 L, Albumin 2.1 L, Globulin 3.6, Albumin/Globulin Ratio 0.6 L 03/19/20 11:00: Lactic Acid 2.6 H* Current Medications Vancomycin HCl 2,000 mg/ (Sodium Chloride) 540 mls @ 250 mls/hr IV X1 ONE Stop: 03/19/20 16:39 Last Admin: 03/19/20 15:37 Dose: 250 mls/hr Documented by: Assessment/Plan All Active Problems (Last Reviewed 03/12/20 @ 12:54 by Annette Santo) PETER (acute kidney injury) (Acute) Abscess (Resolved) Bacteremia (Resolved) 1. Shortness of breath/liver failure secondary to alcoholic cirrhosis with possible hepatorenal syndrome/possible infection/Hyperkalemia/PETER -Meld score indicates that he has a 20% mortality rate over the next 3 months this was discussed with him extensively in making a decision about admission versus being discharged back and to hospice care. He does not seem to understand how ill he is simply because he feels okay. I discussed with him that every lab marker he has is abnormal but he would like to be treated for a possible infection he would also want albumin despite his blood pressure being normal and when he stable he would like to be discharged back onto hospice. I had about a 45-minute advanced care planning discussion with him about this topic as well as his CODE STATUS which she does want to be a full code, I did discuss with him extensively that he would not survive CPR but he would still like the chance. -We will place him on Zosyn for possible SBP, and obtain a UA as well as a body fluid culture -We will start him on gentle IV hydration, he has received a little over 2 L in the ER -I offered for transfer to a center that is both transplant and has hepatology however he refuses to go down this path, I discussed with him that this is his only chance for care and he expressed understanding and still does not want to be transferred -Potassium was corrected in the ER -He is not hypotensive at the moment therefore does not need any albumin -Bilirubin of 7.3 is at his baseline -Last alcoholic beverage was in May 2019 -We will hold his Lasix and Aldactone at this time given the PETER and his hyperkalemia DVT: SCDs Inpatient E&M: 49305 Init Hosp L3
[2020-03-19 16:52] LABS: Bacteria 0 SEEN /hpf (None Seen); Mucous, Urine 0 SEEN /hpf (<or=2+); Red Blood Cells-Urine 0 SEEN /hpf (0-5); White Blood Cells 0 SEEN /hpf (0-5)
[2020-03-19 16:58] LABS: Color, Urine Amber (Yellow); Glucose, Dipstick Normal (Normal); Ketone-Dipstick Negative (Negative); Leukocyte Esterase-Dipstick 25 /ul (Negative); Nitrite-Dipstick Negative (Negative); Occult Blood-Urine Negative /ul (Negative); Protein-Dipstick Negative (Negative); Specific Gravity, Urine 1.015 (1.002-1.030); Urine Bilirubin Dipstick Negative (Negative); Urine Clarity Clear (Clear); Urine Urobilinogen Normal (Normal)
[2020-03-19 17:11] LABS: Lactic Acid 3.3 mmol/L (0.4-1.9)
[2020-03-19 17:15] LABS: Squamous Epithelial Cells - UA 0-5 SEEN /hpf (0-5)
[2020-03-19] MEDS: 0.9% Normal Saline 1,000 ML 75 ML IV (18:08)
[2020-03-20] VITALS (16 sets, daily range): BP systolic 81–100; BP diastolic 35–46; PULSE 75–100; RESP 16–81; TEMP 36.4–37.1; O2SAT 94–100
[2020-03-20] MEDS: 0.9% Normal Saline 1,000 ML 75 ML IV (07:47)
[2020-03-20 07:55] LABS: Absolute Lymphocyte Count 1.22 X10^3/uL (0.83-4.51); Absolute Neutrophil Count 16.4 X10^3/uL (2.0-7.7); Basophil# 0.04 X10^3/uL; Basophil% 0.2 % (0-1); Eosinophil# 0.14 X10^3/uL; Eosinophils% 0.7 % (0-5); Hematocrit 19.4 % (40-54); Hemoglobin 6.7 g/dL (13.0-16.5); Lymphocyte # 1.22 X10^3/ul (4.0); Mean Corp Hgb Conc 34.5 g/dL (32-36); Mean Corpuscular Hgb 32.8 pg (27.0-32.0); Mean Corpuscular Volume 95.1 fL (80-94); Mean Platelet Vol. 9.8 fl (6.2-12.0); Monocyte# 1.89 X10^3/uL; Monocyte% 9.2 % (0-10); NRBC Flagged by Analyzer 0 % (0-5); Neutrophil # 16.42 X10^3/uL (2.7-7.7); Neutrophil % 80.1 % (47-70); POSITIVE COUNT YES; POSITIVE DIFFERENTIAL YES; Platelet Count 77 K/mm3 (150-450); RBC Distribution Width CV 16.2 % (11.6-14.6); RBC Distribution Width SD 56.4 fl (35.1-43.9); Red Blood Count 2.04 M/mm3 (4.6-6.2); White Blood Count 20.5 K/mm3 (4.4-11.0)
[2020-03-20 08:20] LABS: ALB/GLOB Ratio 0.6 RATIO (0.9-2.4); AST(SGOT) 36 U/L (15-37); Alanine Aminotransfer ALT/SGPT 18 U/L (16-61); Albumin, Serum 1.6 g/dL (3.2-5.0); Alkaline Phosphatase 119 U/L (45-117); Anion Gap 6 (5-15); BUN 58 mg/dL (7-18); BUN/Creat Ratio 30.1 RATIO (10-20); Calcium,Total 7.7 mg/dL (8.5-10.1); Chloride 99 mmol/L (98-107); Creatinine, Serum 1.93 mg/dL (0.70-1.30); EST Glomerular Filtration Rate 39 mL/min (>60); Est Glom Filt Rate - Afr Amer 47 mL/min (>60); Estimated Creatinine Clearance 46.06 ml/min; Globulin 2.7 g/dL (2.2-4.2); Glucose 84 mg/dL (74-106); Potassium 6.8 mmol/L (3.5-5.1); Protein, Total 4.3 g/dL (6.4-8.2); Sodium Level 123 mmol/L (136-145)
[2020-03-20 08:29] LABS: Differential Indicated SCAN CRITERIA MET
[2020-03-20 09:30] LABS: Anisocytosis RARE; Hypochromasia 1+; Platelet Estimate MKD DEC (ADEQ)
[2020-03-20] MEDS: Nepro Liquid 120 ML LIQUID PO ×2 (11:39→14:01)
--- NOTE | 2020-03-20 14:20 | PN_ITS ---
<Thaddeus Kidd - Last Filed: 03/20/20 14:46> Subjective: Seen and examined. Patient has history of recurrent admission for end-stage liver disease/decompensated cirrhosis with portal hypertension. Last time patient was discharged with hospice but patient revoked hospice and got admitted with shortness of breath and generalized weakness Physical exam General: Drowsy, lethargic, pale looking. Intermittent confusion and disorientation to time and place HEENT: Whole-body jaundice. Atraumatic, PERRLA, EOMI, Normocephalic. Mild right-sided chronic facial droop Oral: No Gingival or Mucosal Lesions/ Ulcerations Neck: Supple, No JVD, Negative Carotid Bruits Lungs: Air entry diminished in bilateral lung bases. No crepitation/rhonchi Cardiovascular: Regular rate, Regular Rhythm, Normal S1, Normal S2, No murmurs Abdomen: Mild ascites. Bowel Sounds Present, Soft, Non Tender, Non-Distended. Peritoneal catheter drain on right lower quadrant. : No renal angle tenderness. No suprapubic tenderness. Extremities: No edema, Capillary Refill Less than 3 Seconds Skin: No rashes, No breakdown Musculoskeletal: Diffuse muscle atrophy of extremities and face and temporal. Loss of subcutaneous fat. No Tenderness to Palpation of Joints or Extremities Neurological: Cranial nerves II-XII grossly intact, Deep Tendon Reflexes 2+/4 and Symmetrical, Neuro grossly intact Psych/Mental Status: Normal Affect, Appropriate. - Physical Exam Vitals/I&O's: Vital Signs Temp Pulse Resp BP Pulse Ox 98.1 F 88 18 84/43 L 95 03/20/20 13:54 03/20/20 13:54 03/20/20 13:54 03/20/20 13:54 03/20/20 13:54 Oxygen Flow Rate (L/min) 2 Oxygen Delivery Method Room Air Weight: 217 lb 0.016 oz Body Mass Index (BMI) 30.2 Intake and Output for Last 24 Hours 03/18/20 03/19/20 03/20/20 23:59 23:59 23:59 Intake Total 2640.05 / 3120.05 1700 / 1700 Output Total 250 / 600 1800 / 1800 Balance 2390.05 / 2520.05 -100 / -100 Microbiology Past 72 Hours 03/19/20 16:30 Urine, Clean Catch Urine Culture - Preliminary Culture exhibits no growth. 03/19/20 11:14 Mucosa - Nose SARS-CoV-2 Antigen (Rapid) - Final Laboratory Results 03/19/20 16:30: Urine Color Vicki, Urine Clarity Clear, Urine pH 5.0, Ur Specific [place] 1.015, Urine Protein Negative, Urine Glucose (UA) Normal, Urine Ketones Negative, Urine Occult Blood Negative, Urine Nitrite Negative, Urine Bilirubin Negative, Urine Urobilinogen Normal, Ur Leukocyte Esterase 25 H, Urine RBC 0 SEEN, Urine WBC 0 SEEN, Ur Squamous Epith Cells 0-5 SEEN, Urine Bacteria 0 SEEN, Urine Mucus 0 SEEN 03/19/20 16:30: Lactic Acid 3.3 H* 03/20/20 07:40: WBC 20.5 H, RBC 2.04 L, Hgb 6.7 L, Hct 19.4 L, MCV 95.1 H, MCH 32.8 H, MCHC 34.5, RDW Std Deviation 56.4 H, RDW Coeff of Pravin 16.2 H, Plt Count 77 L, MPV 9.8, Immature Gran % (Auto) 3.800 H, Neut % (Auto) 80.1 H, Lymph % (Auto) 6.0 L, Saunders % (Auto) 9.2, Eos % (Auto) 0.7, Baso % (Auto) 0.2, Absolute Neuts (auto) 16.4 H, Absolute Lymphs (auto) 1.22, Nucleated RBC % 0, Diff Path Review June, Platelet Estimate MKD DEC, Hypochromasia 1+, Anisocytosis RARE 03/20/20 07:40: Sodium 123 L, Potassium 6.8 H*, Chloride 99, Carbon Dioxide 18.0 L, Anion Gap 6, BUN 58 H, Creatinine 1.93 H, Estim Creat Clear Calc 46.06, Est GFR (MDRD) Af Amer 47 L, Est GFR (MDRD) Non-Af 39 L, BUN/Creatinine Ratio 30.1 H , Glucose 84, Calcium 7.7 L, Total Bilirubin 7.40 H, AST 36, ALT 18, Alkaline Phosphatase 119 H, Total Protein 4.3 L, Albumin 1.6 L, Globulin 2.7, Albumin/Globulin Ratio 0.6 L Current Medications Sodium Chloride () 1,000 mls @ 75 mls/hr IV .[id number] BELLA Last Admin: 03/20/20 07:47 Dose: 75 mls/hr Documented by: Piperacillin Sod/Tazobactam (Sod 3.375 gm/ Sodium Chloride) 50 mls @ 12.5 mls/hr IV Q8 [facility] Last Admin: 03/20/20 14:01 Dose: 12.5 mls/hr Documented by: Nutritional Formula (Nepro Liquid 120 Ml Liquid) 120 ml PO 4X/DAY [facility] Last Admin: 03/20/20 14:01 Dose: 120 ml Documented by: Ondansetron HCl (Ondansetron 4 Mg/2 Ml Vial) 4 mg IV Q8H PRN PRN PRN Reason: NAUSEA/VOMITING Sodium Chloride (0.9% Saline Lock 10 Ml Syringe) 10 - 40 ml IV UD PRN PRN Reason: SALINE FLUSH Tramadol HCl (Tramadol 50 Mg Tablet) 50 mg PO TID PRN PRN PRN Reason: Pain Score 1-10 Assessment/Plan All Active Problems (Last Reviewed 03/12/20 @ 12:54 by Annette Santo) PETER (acute kidney injury) (Acute) Abscess (Resolved) Bacteremia (Resolved) This patient was seen in conjunction with [employer] SUPERVISOR, Tara. I have independently interviewed and examined the patient and reviewed pertinent history, examination findings, laboratory and plan of management. I have reviewed the note and agree with the documented findings with the few additional points. In brief, patient is a 54-year-old M with history of alcoholic cirrhosis decompensated with ascites, hepatic encephalopathy, portosystemic shunt, thrombocytopenia and splenomegaly was admitted with shortness of breath and generalized weakness with intraperitoneal drain for relief of ascites. Clinical assessment consistent with severe sepsis most probably secondary to SBP. Patient had lactic acidosis 2.6, 3.3. K6.6. BUN/creatinine 56/1.94. Meld-Na score 33 with estimated 90-day mortality of 65 to 66%. Patient was on hospice at time of discharge but he revoked it. Patient is on IV Zosyn, received 60 g IV albumin. On Lasix, spironolactone, lactulose. Xifaxan added for hepatic encephalopathy. Patient also has severe anemia with thrombocytopenia secondary to end-stage liver disease and portal systematic shunt/splenomegaly with varicosities in the splenic hilum. 1 unit of PRBC ordered. 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 Other comorbidities as mentioned above I have discussed my assessment with Tara ALONSO and orders have been reviewed. Inpatient E&M: 35055 Subs Hosp L2 <Tara Pedraza [employer] SUPERVISOR - Last Filed: 03/20/20 15:32> Subjective: Patient seen and examined. States he feels lightheaded. Patient previously home with hospice, asked what symptoms made him call the squad and he was unable to tell me. He denies other specific symptoms or complaints. - Physical Exam Vitals/I&O's: Vital Signs Temp Pulse Resp BP Pulse Ox 98.1 F 88 18 84/43 L 95 03/20/20 13:54 03/20/20 13:54 03/20/20 13:54 03/20/20 13:54 03/20/20 13:54 Oxygen Flow Rate (L/min) 2 Oxygen Delivery Method Room Air Weight: 217 lb 0.016 oz Body Mass Index (BMI) 30.2 Intake and Output for Last 24 Hours 03/18/20 03/19/20 03/20/20 23:59 23:59 23:59 Intake Total 2640.05 / 3120.05 1700 / 1700 Output Total 250 / 600 1800 / 1800 Balance 2390.05 / 2520.05 -100 / -100 General: Cooperative, No apparent distress, - - Drowsy HEENT: Atraumatic, PERRLA, EOMI, Normocephalic Neck: Supple, No JVD, Negative Carotid Bruits Lungs: Clear to auscultation, Diminished Cardiovascular: Regular rate, No murmurs Abdomen: Bowel Sounds Present, Soft, Non Tender, Non-Distended, - - Ascites Extremities: No clubbing, No cyanosis, Capillary Refill Less than 3 Seconds, - - Generalized edema Skin: No rashes, No breakdown Musculoskeletal: No Tenderness to Palpation of Joints or Extremities Neurological: Cranial nerves II-XII grossly intact, Neuro grossly intact Psych/Mental Status: Flat Affect Microbiology Past 72 Hours 03/19/20 16:30 Urine, Clean Catch Urine Culture - Preliminary Culture exhibits no growth. 03/19/20 11:14 Mucosa - Nose SARS-CoV-2 Antigen (Rapid) - Final Laboratory Results 03/19/20 16:30: Urine Color Vicki, Urine Clarity Clear, Urine pH 5.0, Ur Specific [place] 1.015, Urine Protein Negative, Urine Glucose (UA) Normal, Urine Ketones Negative, Urine Occult Blood Negative, Urine Nitrite Negative, Urine Bilirubin Negative, Urine Urobilinogen Normal, Ur Leukocyte Esterase 25 H, Urine RBC 0 SEEN, Urine WBC 0 SEEN, Ur Squamous Epith Cells 0-5 SEEN, Urine Bacteria 0 SEEN, Urine Mucus 0 SEEN 03/19/20 16:30: Lactic Acid 3.3 H* 03/20/20 07:40: WBC 20.5 H, RBC 2.04 L, Hgb 6.7 L, Hct 19.4 L, MCV 95.1 H, MCH 32.8 H, MCHC 34.5, RDW Std Deviation 56.4 H, RDW Coeff of Pravin 16.2 H, Plt Count 77 L, MPV 9.8, Immature Gran % (Auto) 3.800 H, Neut % (Auto) 80.1 H, Lymph % (Auto) 6.0 L, Saunders % (Auto) 9.2, Eos % (Auto) 0.7, Baso % (Auto) 0.2, Absolute Neuts (auto) 16.4 H, Absolute Lymphs (auto) 1.22, Nucleated RBC % 0, Diff Path Review June, Platelet Estimate MKD DEC, Hypochromasia 1+, Anisocytosis RARE 03/20/20 07:40: Sodium 123 L, Potassium 6.8 H*, Chloride 99, Carbon Dioxide 18.0 L, Anion Gap 6, BUN 58 H, Creatinine 1.93 H, Estim Creat Clear Calc 46.06, Est GFR (MDRD) Af Amer 47 L, Est GFR (MDRD) Non-Af 39 L, BUN/Creatinine Ratio 30.1 H , Glucose 84, Calcium 7.7 L, Total Bilirubin 7.40 H, AST 36, ALT 18, Alkaline Phosphatase 119 H, Total Protein 4.3 L, Albumin 1.6 L, Globulin 2.7, Albumin/Globulin Ratio 0.6 L Current Medications Sodium Chloride () 1,000 mls @ 75 mls/hr IV .[id number] [facility] Last Admin: 03/20/20 07:47 Dose: 75 mls/hr Documented by: Piperacillin Sod/Tazobactam (Sod 3.375 gm/ Sodium Chloride) 50 mls @ 12.5 mls/hr IV Q8 [facility] Last Admin: 03/20/20 14:01 Dose: 12.5 mls/hr Documented by: Nutritional Formula (Nepro Liquid 120 Ml Liquid) 120 ml PO 4X/DAY [facility] Last Admin: 03/20/20 14:01 Dose: 120 ml Documented by: Ondansetron HCl (Ondansetron 4 Mg/2 Ml Vial) 4 mg IV Q8H PRN PRN PRN Reason: NAUSEA/VOMITING Sodium Chloride (0.9% Saline Lock 10 Ml Syringe) 10 - 40 ml IV UD PRN PRN Reason: SALINE FLUSH Tramadol HCl (Tramadol 50 Mg Tablet) 50 mg PO TID PRN PRN PRN Reason: Pain Score 1-10 Medical Necessity - Tobacco Use Smoking Status: Current every day smoker Tobacco Use: Cigarettes Assessment/Plan 1. Severe sepsis suspected secondary to SBP-patient had intra-abdominal Pleurx catheter placed 03/05/2020 for uncontrolled ascites related to alcoholic cirrhosis. Obtain culture. Continue IV Zosyn. 2. 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 Initiated on Xifaxan. Check ammonia level. 2. Acute on chronic normocytic anemia-1 unit PRBC ordered. Trend CBC. 3. Acute kidney injury with hyperkalemia-Kayexalate ordered. On IV fluids. Trend BMP. 4. Hyponatremia-secondary to hypervolemia. 5. Thrombocytopenia, coagulopathy-secondary to #1. 6. Chronic alcohol dependence-reports he quit drinking May 2019. 7. Tobacco dependence-encouraged cessation. 8. Anxiety with panic attacks-recommended outpatient follow-up. 9. Hypertension-stable, continue spironolactone. DVT prophylaxis-SCDs This patient was seen by CHIDI Hernandez under the supervision of Dr. Kidd.
[2020-03-20] MEDS: Sodium Polystyrene Sulfonate 15 GM/60 ML UDC 30 GM PO (15:53)
[2020-03-20 17:32] LABS: Protein, Body Fluid 0.7 g/dL (Not Establ.)
[2020-03-20] MEDS: rifAXIMin 550 MG Tablet PO (23:16)
[2020-03-21] VITALS (12 sets, daily range): BP systolic 85–104; BP diastolic 36–61; PULSE 76–92; RESP 16–19; TEMP 36.2–36.9; O2SAT 94–96
--- NOTE | 2020-03-21 02:48 | PCS.PANDOC ---
PANDEMIC DOCUMENTATION INITIATED: Date: 03/19/20 Time: 1031
[2020-03-21] MEDS: 0.9% Normal Saline 1,000 ML 75 ML IV (09:01)
[2020-03-21] MEDS: rifAXIMin 550 MG Tablet PO ×2 (09:01→22:22)
[2020-03-21] MEDS: Nepro Liquid 120 ML LIQUID PO ×4 (09:12→22:47)
[2020-03-21 09:23] LABS: Hematocrit 20.4 % (40-54); Hemoglobin 7.2 g/dL (13.0-16.5); Mean Corp Hgb Conc 35.3 g/dL (32-36); Mean Corpuscular Hgb 32.1 pg (27.0-32.0); Mean Corpuscular Volume 91.1 fL (80-94); Mean Platelet Vol. 9.6 fl (6.2-12.0); POSITIVE COUNT YES; Platelet Count 90 K/mm3 (150-450); RBC Distribution Width CV 17.2 % (11.6-14.6); RBC Distribution Width SD 57.2 fl (35.1-43.9); Red Blood Count 2.24 M/mm3 (4.6-6.2); White Blood Count 19.5 K/mm3 (4.4-11.0)
[2020-03-21 09:35] LABS: Anion Gap 6 (5-15); BUN 70 mg/dL (7-18); BUN/Creat Ratio 34.1 RATIO (10-20); Calcium,Total 7.3 mg/dL (8.5-10.1); Chloride 98 mmol/L (98-107); Creatinine, Serum 2.05 mg/dL (0.70-1.30); EST Glomerular Filtration Rate 36 mL/min (>60); Est Glom Filt Rate - Afr Amer 44 mL/min (>60); Estimated Creatinine Clearance 43.36 ml/min; Glucose 83 mg/dL (74-106); Potassium 5.9 mmol/L (3.5-5.1); Sodium Level 123 mmol/L (136-145)
--- NOTE | 2020-03-21 12:41 | PCM.PROGNOTE ---
<Tara Pedraza MULTIFOCAL LENS INSPECTOR - Last Filed: 03/21/20 12:51> Subjective: Patient seen and examined. Flat affect, dismissive during conversation. Denies symptoms or complaints. - Physical Exam Vitals/I&O's: Vital Signs Temp Pulse Resp BP Pulse Ox 97.2 F L 88 19 H 90/39 L 95 03/21/20 07:45 03/21/20 07:45 03/21/20 07:45 03/21/20 07:45 03/21/20 07:45 Oxygen Flow Rate (L/min) 2 Oxygen Delivery Method Room Air Weight: 217 lb 0.016 oz Body Mass Index (BMI) 30.2 Intake and Output for Last 24 Hours 03/19/20 03/20/20 03/21/20 23:59 23:59 23:59 Intake Total 2640.05 / 3120.05 2470 / 2470 2393.13 / 2393.13 Output Total 250 / 600 3950 / 3950 975 / 975 Balance 2390.05 / 2520.05 -1480 / -1480 1418.13 / 1418.13 General: Alert, Oriented x3, No apparent distress HEENT: Atraumatic, PERRLA, EOMI, Normocephalic Neck: Supple, No JVD, Negative Carotid Bruits Lungs: Clear to auscultation, Diminished Cardiovascular: Regular rate, No murmurs Abdomen: Bowel Sounds Present, Soft, Non Tender, Non-Distended, - - Ascites Extremities: No clubbing, No cyanosis, No edema, Capillary Refill Less than 3 Seconds Skin: No rashes, No breakdown Musculoskeletal: No Tenderness to Palpation of Joints or Extremities Neurological: Cranial nerves II-XII grossly intact, Neuro grossly intact Psych/Mental Status: Flat Affect Microbiology Past 72 Hours 03/20/20 15:45 Fluid - Peritoneal Body Fluid Culture - Preliminary Staphylococcus species 03/19/20 12:15 Blood Culture (Wb) - Anticubital Right Blood Culture - Preliminary No growth in 48 hours. 03/19/20 11:00 Blood Culture (Wb) - Anticubital Left Blood Culture - Preliminary No growth in 48 hours. 03/19/20 16:30 Urine, Clean Catch Urine Culture - Preliminary Culture exhibits no growth. 03/19/20 11:14 Mucosa - Nose SARS-CoV-2 Antigen (Rapid) - Final Laboratory Results 03/20/20 15:41: Blood Type O POSITIVE, Antibody Screen NEGATIVE, Crossmatch See Detail 03/20/20 15:41: Ammonia 65.0 H 03/20/20 15:45: Fluid Glucose 130 H, Fluid Total Protein 0.7 03/21/20 09:07: WBC 19.5 H, RBC 2.24 L, Hgb 7.2 L, Hct 20.4 L, MCV 91.1, MCH 32.1 H, MCHC 35.3, RDW Std Deviation 57.2 H, RDW Coeff of Pravin 17.2 H, Plt Count 90 L, MPV 9.6 03/21/20 09:07: Sodium 123 L, Potassium 5.9 H, Chloride 98, Carbon Dioxide 19.0 L, Anion Gap 6, BUN 70 H, Creatinine 2.05 H, Estim Creat Clear Calc 43.36, Est GFR (MDRD) Af Amer 44 L, Est GFR (MDRD) Non-Af 36 L, BUN/Creatinine Ratio 34.1 H, Glucose 83, Calcium 7.3 L 03/21/20 09:07: Ammonia 59.0 H Current Medications Sodium Chloride () 1,000 mls @ 75 mls/hr IV .[id number] [facility] Last Admin: 03/21/20 09:01 Dose: 75 mls/hr Documented by: Piperacillin Sod/Tazobactam (Sod 3.375 gm/ Sodium Chloride) 50 mls @ 12.5 mls/hr IV Q8 [facility] Last Infusion: 03/21/20 10:39 Dose: Infused Documented by: Lactulose (Lactulose 20 Gm/30 Ml Udc) 20 gm PO TID [facility] Last Admin: 03/21/20 06:29 Dose: Not Given Documented by: Nutritional Formula (Nepro Liquid 120 Ml Liquid) 120 ml PO 4X/DAY [facility] Last Admin: 03/21/20 09:12 Dose: 120 ml Documented by: Ondansetron HCl (Ondansetron 4 Mg/2 Ml Vial) 4 mg IV Q8H PRN PRN PRN Reason: NAUSEA/VOMITING Rifaximin (Rifaximin 550 Mg Tablet) 550 mg PO BID [facility] Last Admin: 03/21/20 09:01 Dose: 550 mg Documented by: Sodium Chloride (0.9% Saline Lock 10 Ml Syringe) 10 - 40 ml IV UD PRN PRN Reason: SALINE FLUSH Tramadol HCl (Tramadol 50 Mg Tablet) 50 mg PO TID PRN PRN PRN Reason: Pain Score 1-10 Medical Necessity - Tobacco Use Smoking Status: Current every day smoker Tobacco Use: Cigarettes Assessment/Plan All Active Problems (Last Reviewed 03/12/20 @ 12:54 by Annette Santo) PETER (acute kidney injury) (Acute) Abscess (Resolved) Bacteremia (Resolved) 1. Severe sepsis suspected secondary to SBP-patient had intra-abdominal Pleurx catheter placed 03/05/2020 for uncontrolled ascites related to alcoholic cirrhosis. Peritoneal fluid culture pending. Continue IV Zosyn. 2. 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 Initiated on Xifaxan. Continue scheduled lactulose. Patient is refusing lactulose. 2. Acute on chronic normocytic anemia-status post 1 unit PRBC. Plan to transfuse for hemoglobin less than 7. 3. Acute kidney injury with hyperkalemia-Kayexalate ordered. Not improved with IV fluids, will discontinue further fluids. Trend BMP. 4. Hyponatremia-secondary to hypervolemia. Lasix on hold due to hypotension. 5. Thrombocytopenia, coagulopathy-secondary to #1. 6. Chronic alcohol dependence-reports he quit drinking May 2019. 7. Tobacco dependence-encouraged cessation. 8. Anxiety with panic attacks-recommended outpatient follow-up. 9. Hypertension-Lasix, spironolactone on hold due to hypotension. DVT prophylaxis-SCDs Discharge planning: Patient previously discharged home with hospice. Revoked hospice to come to hospital. He is undecided if he wants to resume hospice services. This patient was seen by CHIDI Hernandez under the supervision of Dr. Kidd. <Thaddeus Kidd - Last Filed: 03/21/20 14:22> Subjective: Patient blood pressure is low secondary to decompensated cirrhosis and vasodilatation. Blood pressure 90/39. Patient is still drowsy, lethargic flat affect. Patient required peritoneal fluid drainage yesterday 1800 mL yesterday Physical exam General: Drowsy, lethargic, pale looking. Sleepy. HEENT: Whole-body jaundice. Atraumatic, PERRLA, EOMI, Normocephalic. Mild right-sided chronic facial droop Oral: No Gingival or Mucosal Lesions/ Ulcerations Neck: Supple, No JVD, Negative Carotid Bruits Lungs: Air entry diminished in bilateral lung bases. No crepitation/rhonchi Cardiovascular: Regular rate, Regular Rhythm, Normal S1, Normal S2, No murmurs Abdomen: Mild ascites. Bowel Sounds Present, Soft, Non Tender, Non-Distended. Peritoneal catheter drain on right lower quadrant. : No renal angle tenderness. No suprapubic tenderness. Extremities: No significant ankle edema, Capillary Refill Less than 3 Seconds Skin: No rashes, No breakdown Musculoskeletal: Diffuse muscle atrophy of extremities and face and temporal. Loss of subcutaneous fat. No Tenderness to Palpation of Joints or Extremities Neurological: Cranial nerves II-XII grossly intact, Deep Tendon Reflexes 2+/4 and Symmetrical, Neuro grossly intact Psych/Mental Status: Flat affect. - Physical Exam Vitals/I&O's: Vital Signs Temp Pulse Resp BP Pulse Ox 97.2 F L 88 19 H 90/39 L 95 03/21/20 07:45 03/21/20 07:45 03/21/20 07:45 03/21/20 07:45 03/21/20 07:45 Oxygen Flow Rate (L/min) 2 Oxygen Delivery Method Room Air Weight: 217 lb 0.016 oz Body Mass Index (BMI) 30.2 Intake and Output for Last 24 Hours 03/19/20 03/20/20 03/21/20 23:59 23:59 23:59 Intake Total 2640.05 / 3120.05 2470 / 2470 2743.13 / 2743.13 Output Total 250 / 600 3950 / 3950 975 / 975 Balance 2390.05 / 2520.05 -1480 / -1480 1768.13 / 1768.13 Microbiology Past 72 Hours 03/20/20 15:45 Fluid - Peritoneal Gram Stain - Final 03/20/20 15:45 Fluid - Peritoneal Body Fluid Culture - Preliminary Staphylococcus species 03/19/20 12:15 Blood Culture (Wb) - Anticubital Right Blood Culture - Preliminary No growth in 48 hours. 03/19/20 11:00 Blood Culture (Wb) - Anticubital Left Blood Culture - Preliminary No growth in 48 hours. 03/19/20 16:30 Urine, Clean Catch Urine Culture - Preliminary Culture exhibits no growth. 03/19/20 11:14 Mucosa - Nose SARS-CoV-2 Antigen (Rapid) - Final Laboratory Results 03/20/20 15:41: Blood Type O POSITIVE, Antibody Screen NEGATIVE, Crossmatch See Detail 03/20/20 15:41: Ammonia 65.0 H 03/20/20 15:45: Fluid Glucose 130 H, Fluid Total Protein 0.7 03/21/20 09:07: WBC 19.5 H, RBC 2.24 L, Hgb 7.2 L, Hct 20.4 L, MCV 91.1, MCH 32.1 H, MCHC 35.3, RDW Std Deviation 57.2 H, RDW Coeff of Pravin 17.2 H, Plt Count 90 L, MPV 9.6 03/21/20 09:07: Sodium 123 L, Potassium 5.9 H, Chloride 98, Carbon Dioxide 19.0 L, Anion Gap 6, BUN 70 H, Creatinine 2.05 H, Estim Creat Clear Calc 43.36, Est GFR (MDRD) Af Amer 44 L, Est GFR (MDRD) Non-Af 36 L, BUN/Creatinine Ratio 34.1 H, Glucose 83, Calcium 7.3 L 03/21/20 09:07: Ammonia 59.0 H Current Medications Piperacillin Sod/Tazobactam (Sod 3.375 gm/ Sodium Chloride) 50 mls @ 12.5 mls/hr IV Q8 [facility] Last Admin: 03/21/20 13:47 Dose: 12.5 mls/hr Documented by: Lactulose (Lactulose 20 Gm/30 Ml Udc) 20 gm PO TID [facility] Last Admin: 03/21/20 06:29 Dose: Not Given Documented by: Nutritional Formula (Nepro Liquid 120 Ml Liquid) 120 ml PO 4X/DAY [facility] Last Admin: 03/21/20 13:46 Dose: 120 ml Documented by: Ondansetron HCl (Ondansetron 4 Mg/2 Ml Vial) 4 mg IV Q8H PRN PRN PRN Reason: NAUSEA/VOMITING Rifaximin (Rifaximin 550 Mg Tablet) 550 mg PO BID [facility] Last Admin: 03/21/20 09:01 Dose: 550 mg Documented by: Sodium Chloride (0.9% Saline Lock 10 Ml Syringe) 10 - 40 ml IV UD PRN PRN Reason: SALINE FLUSH Tramadol HCl (Tramadol 50 Mg Tablet) 50 mg PO TID PRN PRN PRN Reason: Pain Score 1-10 Assessment/Plan This patient was seen in conjunction with Tara ALONSO. I have independently interviewed and examined the patient and reviewed pertinent history, examination findings, laboratory and plan of management. I have reviewed the note and agree with the documented findings with the few additional points. In brief, patient is a 54-year-old M with history of alcoholic cirrhosis decompensated with ascites, hepatic encephalopathy, portosystemic shunt, thrombocytopenia and splenomegaly was admitted with shortness of breath and generalized weakness with intraperitoneal drain for relief of ascites. Clinical assessment consistent with severe sepsis most probably secondary to SBP. Patient had lactic acidosis 2.6, 3.3. K6.6. BUN/creatinine 56/1.94. Meld-Na score 33 with estimated 90-day mortality of 65 to 66%. Patient was on hospice at time of discharge but he revoked it. Patient is on IV Zosyn, received 60 g IV albumin. On Lasix, spironolactone, lactulose. Xifaxan added for hepatic encephalopathy. Patient also has severe anemia with thrombocytopenia secondary to end-stage liver disease and portal systematic shunt/splenomegaly with varicosities in the splenic hilum. 1 unit of PRBC ordered. Acute kidney injury with CKD secondary to HRS with hyperkalemia /2020: Blood pressure is low 85/26, 90/39. BUN/creatinine 70/2.05 started on midodrine 10 mg 3 times daily. Patient has peritoneal drain and required acetic fluid drainage. Sodium 123, potassium 5.9. H&H 7.2/20.4. Platelet count 90,000. 30 g Kayexalate given. Chronic alcohol use: Quit drinking alcohol in May 2019. Other comorbidities as mentioned above I have discussed my assessment with Tara ALONSO and orders have been reviewed. Inpatient E&M: 18101 Subs Hosp L2
[2020-03-21] MEDS: Sodium Polystyrene Sulfonate 15 GM/60 ML UDC 30 GM PO (13:45)
[2020-03-21] MEDS: Midodrine HCl 5 MG Tablet 10 MG PO ×2 (17:52→22:22)
[2020-03-21] MEDS: Doxycycline 100 MG CAPSULE PO (22:23)
[2020-03-22] VITALS (13 sets, daily range): BP systolic 79–95; BP diastolic 34–44; PULSE 76–85; RESP 16–19; TEMP 36.2–36.8; O2SAT 96–98
[2020-03-22] MEDS: Midodrine HCl 5 MG Tablet 10 MG PO ×3 (05:16→22:29)
[2020-03-22 06:04] LABS: Hematocrit 21.5 % (40-54); Hemoglobin 7.3 g/dL (13.0-16.5); Mean Corpuscular Hgb 31.5 pg (27.0-32.0); Mean Corpuscular Volume 92.7 fL (80-94); Mean Platelet Vol. 9.3 fl (6.2-12.0); POSITIVE COUNT YES; Platelet Count 92 K/mm3 (150-450); RBC Distribution Width CV 17.2 % (11.6-14.6); RBC Distribution Width SD 57.8 fl (35.1-43.9); Red Blood Count 2.32 M/mm3 (4.6-6.2); White Blood Count 18.4 K/mm3 (4.4-11.0)
[2020-03-22 06:28] LABS: Anion Gap 8 (5-15); BUN 74 mg/dL (7-18); BUN/Creat Ratio 35.4 RATIO (10-20); Calcium,Total 7.3 mg/dL (8.5-10.1); Chloride 96 mmol/L (98-107); Creatinine, Serum 2.09 mg/dL (0.70-1.30); EST Glomerular Filtration Rate 35 mL/min (>60); Est Glom Filt Rate - Afr Amer 43 mL/min (>60); Estimated Creatinine Clearance 42.53 ml/min; Glucose 104 mg/dL (74-106); Sodium Level 124 mmol/L (136-145)
[2020-03-22] MEDS: Nepro Liquid 120 ML LIQUID PO ×4 (08:07→22:29)
[2020-03-22] MEDS: rifAXIMin 550 MG Tablet PO ×2 (08:07→22:29)
[2020-03-22] MEDS: Doxycycline 100 MG CAPSULE PO ×2 (08:07→22:29)
[2020-03-22] MEDS: Albumin Human 25% (100 mL) 25 GM/100 ML BAG IV ×2 (11:25→13:14)
--- NOTE | 2020-03-22 11:31 | CASEMGMT ---
RN ROLLY assessment: Face to Face with patient for initial transition planning/care coordination assessment. RN CM introduced self and role at [facility], pt voices understanding and consents to assessment at this time. Pt is sitting up in bed in no distress at this time. Pt is A/Ox4 at this time and answers all questions appropriately at this time. Care providers, pharmacy, and demographics verified at this time. Presentation: Increased SOB, weakness, lightheaded, and fatique-hospice pt-revoked Admitting dx: Liver/renal failure PCP: [facility] Specialists: Post, liver specialist Preferred Pharmacy: [facility] Insurance: [employer] Prescription Benefit: [employer] Living Will/HPOA: Pt states does not have LW/HPOA and declines AD info at this time. LNOK: Kaleigh Alanisin, friend Living Arrangements: Pt states lives on main level of condo with no concerns at home at this time. Pt states has been sponge bathing d/t lip to step over to get into shower. Transportation: Pt states drives self and states no transportation concerns at this time. DME/HHC: Pt has walker and grab bars as well as the pleurx catheter and supplies. Pt states no hx of HHC or SNF and has adamantly declined both in the past. Pt was active with [facility] prior to ED visit and this RN CM went over hospice again with pt at this time, voices understanding but gets defensive and states 'Don't I have the right to life.' Then pt states 'the doctor already talked to me about this' and asks this RN CM to 'give him some time to make decisions.' This RN CM advised pt will f/u tomorrow, voices understanding. Pt voices no concerns with going home at time of discharge but is not sure about plan with hospice at discharge and states needs more time to think about it. Pt states has not worked since May 2019 when he was diagnosed with liver cirrhosis/disease and is unsure what his work situation is at this time. Pt states smokes 1 pack/day and has not drank ETOH since May 2019 either. Pt voices no further concerns/needs at this time. CM to follow for any further discharge planning/needs. Advised pt to ask for CM if any further questions/concerns/needs arise, voices understanding. Pt Goal: Home Plan: Home w/ resumption of Hospice?? S[place]en RN ROLLY
[2020-03-22 11:42] LABS: Pathologist Review Reviewed
[2020-03-22 11:49] LABS: Pathologist Review Reviewed
--- NOTE | 2020-03-22 12:47 | PN_ITS ---
<Tara Pedraza SCHEDULER - Last Filed: 03/22/20 12:54> Subjective: Patient seen and examined. Flat affect. States he feels better than he did when he came in. Reports feeling overwhelmed as he is not sure if he wants to resume hospice or not at discharge. Would like to continue to think about it. - Physical Exam Vitals/I&O's: Vital Signs Temp Pulse Resp BP Pulse Ox 98.2 F 80 18 91/41 L 96 03/22/20 04:00 03/22/20 07:00 03/22/20 04:00 03/22/20 04:00 03/22/20 04:00 Oxygen Flow Rate (L/min) 2 Oxygen Delivery Method Room Air Weight: 217 lb 0.016 oz Body Mass Index (BMI) 30.2 Intake and Output for Last 24 Hours 03/20/20 03/21/20 03/22/20 23:59 23:59 23:59 Intake Total 2470 / 2470 4768.13 / 4768.13 250 / 250 Output Total 3950 / 3950 4675 / 4675 750 / 750 Balance -1480 / -1480 93.13 / 93.13 -500 / -500 General: Alert, Oriented x3, Cooperative HEENT: Atraumatic, PERRLA, EOMI, Normocephalic Neck: Supple, No JVD, Negative Carotid Bruits Lungs: Clear to auscultation, Diminished Cardiovascular: Regular rate, No murmurs Abdomen: Bowel Sounds Present, Soft, Non Tender, Non-Distended, - - Ascites Extremities: No clubbing, No cyanosis, No edema, Capillary Refill Less than 3 Seconds Skin: No rashes, No breakdown Musculoskeletal: No Tenderness to Palpation of Joints or Extremities Neurological: Cranial nerves II-XII grossly intact, Neuro grossly intact Psych/Mental Status: Flat Affect Microbiology Past 72 Hours 03/20/20 15:45 Fluid - Peritoneal Gram Stain - Final 03/20/20 15:45 Fluid - Peritoneal Body Fluid Culture - Final Staphylococcus aureus 03/19/20 16:30 Urine, Clean Catch Urine Culture - Final Culture exhibits no growth. 03/19/20 12:15 Blood Culture (Wb) - Anticubital Right Blood Culture - Preliminary No growth in 48 hours. 03/19/20 11:00 Blood Culture (Wb) - Anticubital Left Blood Culture - Preliminary No growth in 48 hours. 03/19/20 11:14 Mucosa - Nose SARS-CoV-2 Antigen (Rapid) - Final Laboratory Results 03/19/20 11:00: Diff Path Review Reviewed 03/20/20 07:40: Diff Path Review Reviewed 03/22/20 05:45: WBC 18.4 H, RBC 2.32 L, Hgb 7.3 L, Hct 21.5 L, MCV 92.7, MCH 31.5, MCHC 34.0, RDW Std Deviation 57.8 H, RDW Coeff of Pravin 17.2 H, Plt Count 92 L, MPV 9.3 03/22/20 05:45: Sodium 124 L, Potassium 5.0, Chloride 96 L, Carbon Dioxide 20.0 L, Anion Gap 8, BUN 74 H, Creatinine 2.09 H, Estim Creat Clear Calc 42.53, Est GFR (MDRD) Af Amer 43 L, Est GFR (MDRD) Non-Af 35 L, BUN/Creatinine Ratio 35.4 H , Glucose 104, Calcium 7.3 L 03/22/20 05:45: Ammonia 46.0 H Current Medications Doxycycline Monohydrate (Doxycycline 100 Mg Capsule) 100 mg PO BID [facility] Last Admin: 03/22/20 08:07 Dose: 100 mg Documented by: Albumin Human () 25 gm in 100 mls @ 60 mls/hr IV Q2H [facility] Stop: 03/22/20 14:39 Last Admin: 03/22/20 11:25 Dose: 60 mls/hr Documented by: Lactulose (Lactulose 20 Gm/30 Ml Udc) 20 gm PO TID [facility] Last Admin: 03/22/20 05:16 Dose: Not Given Documented by: Midodrine (Midodrine Hcl 5 Mg Tablet) 10 mg PO TID [facility] Last Admin: 03/22/20 05:16 Dose: 10 mg Documented by: Nutritional Formula (Nepro Liquid 120 Ml Liquid) 120 ml PO 4X/DAY [facility] Last Admin: 03/22/20 08:07 Dose: 120 ml Documented by: Ondansetron HCl (Ondansetron 4 Mg/2 Ml Vial) 4 mg IV Q8H PRN PRN PRN Reason: NAUSEA/VOMITING Rifaximin (Rifaximin 550 Mg Tablet) 550 mg PO BID [facility] Last Admin: 03/22/20 08:07 Dose: 550 mg Documented by: Sodium Chloride (0.9% Saline Lock 10 Ml Syringe) 10 - 40 ml IV UD PRN PRN Reason: SALINE FLUSH Tramadol HCl (Tramadol 50 Mg Tablet) 50 mg PO TID PRN PRN PRN Reason: Pain Score 1-10 Medical Necessity - Tobacco Use Smoking Status: Current every day smoker Tobacco Use: Cigarettes Assessment/Plan All Active Problems (Last Reviewed 03/12/20 @ 12:54 by Annette Santo) PETER (acute kidney injury) (Acute) Abscess (Resolved) Bacteremia (Resolved) 1. Severe sepsis suspected secondary to SBP-patient had intra-abdominal Pleurx catheter placed 03/05/2020 for uncontrolled ascites related to alcoholic cirrhosis. Peritoneal fluid culture growing rare staph aureus. On oral doxycycline to complete course. Blood and urine cultures negative. No other source of infection identified. 2. 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 Initiated on Xifaxan. Continue scheduled lactulose. Patient has been refusing lactulose. 5.3 L drained from Pleurx catheter since admission. Albumin ordered. 2. Acute on chronic normocytic anemia-status post 1 unit PRBC. Plan to transfuse for hemoglobin less than 7. 3. Acute kidney injury with hyperkalemia-Kayexalate X2. Hyperkalemia resolved. Not improved with IV fluids, will discontinue further fluids. Trend BMP. 4. Hyponatremia-secondary to hypervolemia. Lasix on hold due to hypotension. 5. Thrombocytopenia, coagulopathy-secondary to #1. 6. Chronic alcohol dependence-reports he quit drinking May 2019. 7. Tobacco dependence-encouraged cessation. 8. Anxiety with panic attacks-recommended outpatient follow-up. 9. Hypertension-Lasix, spironolactone on hold due to hypotension. Initiated on midodrine. DVT prophylaxis-SCDs Discharge planning: Patient previously discharged home with hospice. Revoked hospice to come to hospital. He is undecided if he wants to resume hospice services. This patient was seen by CHIDI Hernandez under the supervision of Dr. Clay. <Evert Clay - Last Filed: 03/22/20 16:56> - Physical Exam Vitals/I&O's: Vital Signs Temp Pulse Resp BP Pulse Ox 36.4 C L 85 19 H 90/37 L 97 03/22/20 16:15 03/22/20 16:15 03/22/20 16:15 03/22/20 16:15 03/22/20 16:15 Oxygen Flow Rate (L/min) 2 Oxygen Delivery Method Room Air Weight: 98.43 kg Body Mass Index (BMI) 30.2 Intake and Output for Last 24 Hours 03/20/20 03/21/20 03/22/20 23:59 23:59 23:59 Intake Total 2470 / 2470 4768.13 / 4768.13 450 / 450 Output Total 3950 / 3950 4675 / 4675 750 / 750 Balance -1480 / -1480 93.13 / 93.13 -300 / -300 General: Alert, Cooperative HEENT: Atraumatic, Normocephalic Lungs: Clear to auscultation, Diminished Cardiovascular: Regular rate, No murmurs Abdomen: Distended, - - Ascites. Peritoneal drain right side abdomen draining straw-colored fluid. Extremities: No clubbing, Capillary Refill Less than 3 Seconds Skin: No rashes, No breakdown Psych/Mental Status: Flat Affect Microbiology Past 72 Hours 03/20/20 15:45 Fluid - Peritoneal Gram Stain - Final 03/20/20 15:45 Fluid - Peritoneal Body Fluid Culture - Final Staphylococcus aureus 03/19/20 16:30 Urine, Clean Catch Urine Culture - Final Culture exhibits no growth. 03/19/20 12:15 Blood Culture (Wb) - Anticubital Right Blood Culture - Preliminary No growth in 48 hours. 03/19/20 11:00 Blood Culture (Wb) - Anticubital Left Blood Culture - Pr eliminary No growth in 48 hours. 03/19/20 11:14 Mucosa - Nose SARS-CoV-2 Antigen (Rapid) - Final Laboratory Results 03/19/20 11:00: Diff Path Review Reviewed 03/20/20 07:40: Diff Path Review Reviewed 03/22/20 05:45: WBC 18.4 H, RBC 2.32 L, Hgb 7.3 L, Hct 21.5 L, MCV 92.7, MCH 31.5, MCHC 34.0, RDW Std Deviation 57.8 H, RDW Coeff of Pravin 17.2 H, Plt Count 92 L, MPV 9.3 03/22/20 05:45: Sodium 124 L, Potassium 5.0, Chloride 96 L, Carbon Dioxide 20.0 L, Anion Gap 8, BUN 74 H, Creatinine 2.09 H, Estim Creat Clear Calc 42.53, Est GFR (MDRD) Af Amer 43 L, Est GFR (MDRD) Non-Af 35 L, BUN/Creatinine Ratio 35.4 H , Glucose 104, Calcium 7.3 L 03/22/20 05:45: Ammonia 46.0 H Current Medications Doxycycline Monohydrate (Doxycycline 100 Mg Capsule) 100 mg PO BID [facility] Last Admin: 03/22/20 08:07 Dose: 100 mg Documented by: Lactulose (Lactulose 20 Gm/30 Ml Udc) 20 gm PO TID [facility] Last Admin: 03/22/20 13:14 Dose: Not Given Documented by: Midodrine (Midodrine Hcl 5 Mg Tablet) 10 mg PO TID [facility] Last Admin: 03/22/20 13:14 Dose: 10 mg Documented by: Nutritional Formula (Nepro Liquid 120 Ml Liquid) 120 ml PO 4X/DAY [facility] Last Admin: 03/22/20 13:24 Dose: 120 ml Documented by: Ondansetron HCl (Ondansetron 4 Mg/2 Ml Vial) 4 mg IV Q8H PRN PRN PRN Reason: NAUSEA/VOMITING Rifaximin (Rifaximin 550 Mg Tablet) 550 mg PO BID [facility] Last Admin: 03/22/20 08:07 Dose: 550 mg Documented by: Sodium Chloride (0.9% Saline Lock 10 Ml Syringe) 10 - 40 ml IV UD PRN PRN Reason: SALINE FLUSH Tramadol HCl (Tramadol 50 Mg Tablet) 50 mg PO TID PRN PRN PRN Reason: Pain Score 1-10 Assessment/Plan Patient seen and examined independently. Data reviewed. I agree with the above note by the nurse practitioner. 1. Possible spontaneous bacterial peritonitis: Had 23+ white blood cells. Culture grew out MSSA. On doxycycline. 2. Lactic acidosis: Not sure the patient was actually septic patient does have chronically low blood pressure. I would say that severe sepsis was ruled out. 3. Cirrhosis: MELD 29 with mortality rate of 19.6 Child-Tucker C. Patient not interested in liver transplant. Patient rescinded hospice to come in. Patient was having just worsening drainage. Explained the patient that without a liver transplant he will likely from his cirrhosis. Discussed with case management about given the patient reenrolled with hospice so that he can manage at home with periodic drainage of his ascites. Overall prognosis is poor. Explained to the patient that if he is having issues regards to his ascites having copious drainage or feeling more distended to contact hospice immediately. Does not appear that he did so with this admission. Patient seemed to express understanding, though there is some concern from other care providers that patient may not fully grasp the complexity of his situation. Greater than 40 minutes of which greater than 50% of time was counseling patient about cirrhosis, treatments and his prognosis. Inpatient E&M: 51092 [facility] Hosp L3
--- NOTE | 2020-03-22 15:04 | CASEMGMT ---
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 Pt states that no one wants me here and states he feels like no one wants to take care of him. Explained to patient that if he wants to continue to receive care, that we will provide it and it isn't that staff don't want him here but that staff are concerned with the extent of his liver disease that the care we provide will not change his disease process. Asked patient that given that he was under hospice care that his life expectancy is less than 6 months and what would his goals be for those 6 months. Pt states I don't know, people keep asking me that and I don't know the answer to all of these questions. Pt reiterated the events that preceded his admission including the need to empty liters of fluid, probably 10 from the bag around his Pleurx catheter on and more on Sunday. He states he was seeing spots and his blood pressure was really low so the hospice nurse called the squad. Pt states Dr. Pineda changed his medications and took him off the Midodrine and he doesn't think the medications he is taking are correct. Pt states if he just gets back on the Midodrine which he states he has a lot of at home, he will be able to be up and around again and able to care for himself. When asked when he last spoke with Dr. Pineda he could not recall except to say it had been a long time. Pt with a lot of concerns regarding caring for the Pleurx catheter and states his back hurt when he had to stand at the sink so long to drain the bag on . States he has had to call the hospice nurse and request additional visits to help manage the bag and catheter. Pt states if Dr. Pineda would just let me come to radiology once a week and get a paracentesis I think that would be better. Reminded pt of how uncomfortable he was when his abdomen was full and that his abdomen looks much less distended than previous now that he has the Pleurx catheter. Pt agrees that his abdomen is much better but the catheter/bag has not been easy to deal with either. Explained that even if the Pleurx catheter would be removed and he would return to radiology for weekly paracentesis, he would eventually end up with a Pleurx anyway given the extent of his liver disease and the amount of fluid he is draining. Pt agreed that the Pleurx catheter was ok and that he did not want it removed. Explained that we can work with hospice to see if there were any additional tactics that could be tried to assist with maintaining the Pleurx catheter. Pt reiterated previous statement from Dr. Pineda that if he was drained more frequently than every 2 weeks that it would kill me. Explained that the amount of fluid that he is currently having drained is similar to the same scenario that Dr. Pineda had concerns about. Reviewed that the proteins lost in the drainage cannot be manufactured fast enough by his diseased liver and will result in loss of muscle and weakness. Pt expressed understanding and states he has not been receiving the albumin from hospice. Noted pt was receiving albumin during our discussion. This RN CM asked pt if he had any thoughts or conversations with hospice regarding how he would be taken care of if he became unable to care for himself. Pt returned the conversation back to the [facility] and how resuming this medication will make his blood pressure better and then enable him to be ambulatory and able to care for himself. Pt states Anne Marie is his administrative specialist with [facility] and gave this RN CM permission to contact her for collaboration. Will monitor pt's BP and activity to determine pt's ability to return home with hospice. This RN CM contacted [facility] and left a message for Anne Marie to call this RN CM for collaboration. Note for 1500: This RN CM received a return call from Anne Marie with [facility]. Anne Marie states that the pt has had great difficulty with managing the Pleurx catheter. They have been going out 3 days a week (Sunday, Sunday, and Sunday) to drain his abd using the Pleurx catheter but that there has been extensive leaking from around the catheter insertion site that has required them to put the bag on around the catheter. They can only drain 5L from the Pleurx catheter when they actually use the catheter per their protocol. She states the fluid the patient referenced from was all from around the insertion site itself. Anne Marie states that on Sunday, the patient was offered to be transferred to the hospice inpt unit or the hospital but he chose the hospital. She does not feel that the patient understands the extent of his disease process and is concerned about his ability to care for himself in his home. She states pt continues to drive. (Pt had stated he had driven around to complete errands and pay bills.) Dr. Coppola has been managing the patient's orders but Dr. Jeffers has also remained involved. Dr. Pineda has not been providing orders. A Cement Handler with hospice has been attempting to reach out to the pt to assist with Medicaid applications, etc. but the pt has not returned her phone calls. If it is decided that the patient is able to return home or he choses to return home, hospice services can be resumed. Will continue to monitor and discuss circumstances with patient as appropriate. Jeison Bolton RN CM
[2020-03-23] VITALS (17 sets, daily range): BP systolic 85–103; BP diastolic 35–56; PULSE 57–82; RESP 16–18; TEMP 36.3–36.8; O2SAT 94–100
[2020-03-23] MEDS: Benzonatate 100 MG Capsule PO (04:19)
[2020-03-23 06:05] LABS: Hematocrit 18.3 % (40-54); Hemoglobin 6.4 g/dL (13.0-16.5); Mean Corpuscular Hgb 32.2 pg (27.0-32.0); Mean Platelet Vol. 10.1 fl (6.2-12.0); POSITIVE COUNT YES; Platelet Count 75 K/mm3 (150-450); RBC Distribution Width CV 17.1 % (11.6-14.6); RBC Distribution Width SD 56.3 fl (35.1-43.9); Red Blood Count 1.99 M/mm3 (4.6-6.2); White Blood Count 15.2 K/mm3 (4.4-11.0)
[2020-03-23] MEDS: Midodrine HCl 5 MG Tablet 10 MG PO ×3 (06:16→21:23)
[2020-03-23 06:35] LABS: Anion Gap 10 (5-15); BUN 84 mg/dL (7-18); BUN/Creat Ratio 32.3 RATIO (10-20); Calcium,Total 6.9 mg/dL (8.5-10.1); Chloride 92 mmol/L (98-107); EST Glomerular Filtration Rate 27 mL/min (>60); Est Glom Filt Rate - Afr Amer 33 mL/min (>60); Estimated Creatinine Clearance 34.19 ml/min; Glucose 88 mg/dL (74-106); Potassium 4.4 mmol/L (3.5-5.1); Sodium Level 122 mmol/L (136-145)
[2020-03-23] MEDS: rifAXIMin 550 MG Tablet PO ×2 (09:25→21:24)
[2020-03-23] MEDS: Doxycycline 100 MG CAPSULE PO ×2 (09:25→21:24)
[2020-03-23] MEDS: Nepro Liquid 120 ML LIQUID PO ×3 (09:26→18:49)
--- NOTE | 2020-03-23 11:26 | CASEMGMT ---
Addendum entered by Pam Lucero 03/23/20 14:47: SIGIFREDO received a return call from [facility] and he said they do no administer Albumin. SW notified physician and USED [employer] [facility] Tara. Pam LAMBERT Original Note: Physician wanted to know if patient went home on Hospice would Hospice give him Albumin? SW called Hospice and spoke with Ramírez. SW asked him this question and he will find an answer and get back to SIGIFREDO. Pam CHAUDHRY MSW
[2020-03-23] MEDS: guaiFENesin 10 ML UDC (200MG/10ML) PO ×2 (12:34→18:49)
[2020-03-23] MEDS: Lactulose 20 GM/30 ML UDC PO ×2 (14:04→21:28)
--- NOTE | 2020-03-23 15:55 | CHAPLAIN ---
Type of Pastoral Visit _x__ Initial Visit ___ Follow-up Visit ___ On-call Visit ___ General Patient Visit ___ Spiritual Assessment ___ Family Conference ___ Bereavement ___ Rapid Response ___ Code Blue ___ Other (describe below) Pastoral Care Referral From ___ Patient ___ Family ___ Nurse ___ Physician ___ Bee Tender _x__ Hydraulic Press Tender ___ Other (describe below) Sacrament/Intervention _x__ Active listening ___ Anointing ___ Anglican ___ Bereavement ___ Communion _x__ Vidya exploration ___ _x__ Life review _x__ Prayer ___ Reconciliation ___ Sacrament of Sick _x__ Supportive presence ___ Wedding ___ Other (describe below) Pastoral Comments this gas operation manager introduced self and role at the hospital; patient was willing for this gas operation manager to sit and talk with him; pt explains his current health situation, his thoughts on and dying, and expresses feelings including disappointment, frustration, and fear; patient has numerous questions of a spiritual nature concerning and the after life; it was a lengthy interaction that was patient directed; pt can only count on a couple of friends and hospice as his support system; pt says that he has no family support; pt could benefit from additional follow up
--- NOTE | 2020-03-23 15:56 | PN_ITS ---
<Tara Pedraza NEWS BROADCASTER - Last Filed: 03/23/20 16:17> Subjective: Patient seen and examined. Had extensive discussion with patient regarding plan of care. Spoke with hospice physician, Dr. Roberts who states IV albumin with home hospice is not an option. They also are also limited on how much fluid they can remove from Pleurx catheter due to subsequent hypotension. Discussed with patient that if he returns home with hospice, he will need to be DNR status. Given additional options including more aggressive management of his chronic conditions if he wants to remain full code. Patient is going to think about this decision. - Physical Exam Vitals/I&O's: Vital Signs Temp Pulse Resp BP Pulse Ox 97.5 F L 70 18 85/41 L 99 03/23/20 13:45 03/23/20 13:45 03/23/20 13:45 03/23/20 13:45 03/23/20 13:45 Oxygen Flow Rate (L/min) 2 Oxygen Delivery Method Room Air Weight: 217 lb 0.016 oz Body Mass Index (BMI) 30.2 Intake and Output for Last 24 Hours 03/21/20 03/22/20 03/23/20 23:59 23:59 23:59 Intake Total 4768.13 / 4768.13 3700 / 3700 640 / 640 Output Total 4675 / 4675 4550 / 4550 1100 / 1100 Balance 93.13 / 93.13 -850 / -850 -460 / -460 General: Alert, Oriented x3, Cooperative HEENT: Atraumatic, PERRLA, EOMI, Normocephalic Neck: Supple, No JVD, Negative Carotid Bruits Lungs: Clear to auscultation, Diminished Cardiovascular: Regular rate, No murmurs Abdomen: Bowel Sounds Present, Soft, Non Tender, Non-Distended, - - Ascites Extremities: No clubbing, No cyanosis, No edema Skin: No rashes, No breakdown Musculoskeletal: No Tenderness to Palpation of Joints or Extremities Neurological: Cranial nerves II-XII grossly intact, Neuro grossly intact Psych/Mental Status: Flat Affect Microbiology Past 72 Hours 03/20/20 15:45 Fluid - Peritoneal Gram Stain - Final 03/20/20 15:45 Fluid - Peritoneal Body Fluid Culture - Final Staphylococcus aureus 03/20/20 15:45 Fluid - Peritoneal Anaerobic Culture - Preliminary No anaerobic bacteria isolated. 03/19/20 16:30 Urine, Clean Catch Urine Culture - Final Culture exhibits no growth. 03/19/20 12:15 Blood Culture (Wb) - Anticubital Right Blood Culture - Preliminary No growth in 48 hours. 03/19/20 11:00 Blood Culture (Wb) - Anticubital Left Blood Culture - Preliminary No growth in 48 hours. Laboratory Results 03/20/20 15:41: Crossmatch See Detail 03/20/20 15:41: Crossmatch See Detail 03/23/20 05:50: WBC 15.2 H, RBC 1.99 L, Hgb 6.4 L, Hct 18.3 L, MCV 92.0, MCH 32.2 H, MCHC 35.0, RDW Std Deviation 56.3 H, RDW Coeff of Pravin 17.1 H, Plt Count 75 L, MPV 10.1 03/23/20 05:50: Sodium 122 L, Potassium 4.4, Chloride 92 L, Carbon Dioxide 20.0 L, Anion Gap 10, BUN 84 H, Creatinine 2.60 H, Estim Creat Clear Calc 34.19, Est GFR (MDRD) Af Amer 33 L, Est GFR (MDRD) Non-Af 27 L, BUN/Creatinine Ratio 32.3 H , Glucose 88, Calcium 6.9 L Current Medications Benzonatate (Benzonatate 100 Mg Capsule) 100 mg PO TID PRN PRN PRN Reason: COUGH Last Admin: 03/23/20 04:19 Dose: 100 mg Documented by: Doxycycline Monohydrate (Doxycycline 100 Mg Capsule) 100 mg PO BID [facility] Last Admin: 03/23/20 09:25 Dose: 100 mg Documented by: Guaifenesin (Guaifenesin 10 Ml Udc (200mg/10ml)) 10 ml PO Q6H PRN PRN PRN Reason: COUGH Last Admin: 03/23/20 12:34 Dose: 10 ml Documented by: Lactulose (Lactulose 20 Gm/30 Ml Udc) 20 gm PO TID [facility] Last Admin: 03/23/20 14:04 Dose: 20 gm Documented by: Midodrine (Midodrine Hcl 5 Mg Tablet) 10 mg PO TID [facility] Last Admin: 03/23/20 14:04 Dose: 10 mg Documented by: Nutritional Formula (Nepro Liquid 120 Ml Liquid) 120 ml PO 4X/DAY [facility] Last Admin: 03/23/20 14:04 Dose: 120 ml Documented by: Ondansetron HCl (Ondansetron 4 Mg/2 Ml Vial) 4 mg IV Q8H PRN PRN PRN Reason: NAUSEA/VOMITING Rifaximin (Rifaximin 550 Mg Tablet) 550 mg PO BID [facility] Last Admin: 03/23/20 09:25 Dose: 550 mg Documented by: Sodium Chloride (0.9% Saline Lock 10 Ml Syringe) 10 - 40 ml IV UD PRN PRN Reason: SALINE FLUSH Tramadol HCl (Tramadol 50 Mg Tablet) 50 mg PO TID PRN PRN PRN Reason: Pain Score 1-10 Medical Necessity - Tobacco Use Smoking Status: Current every day smoker Tobacco Use: Cigarettes Assessment/Plan All Active Problems (Last Reviewed 03/12/20 @ 12:54 by Annette Santo) PETER (acute kidney injury) (Acute) Abscess (Resolved) Bacteremia (Resolved) 1. Severe sepsis suspected secondary to SBP-patient had intra-abdominal Pleurx catheter placed 03/05/2020 for uncontrolled ascites related to alcoholic cirrhosis. Peritoneal fluid culture growing rare staph aureus. On oral doxycycline to complete course. Blood and urine cultures negative. No other source of infection identified. 2. 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 Initiated on Xifaxan. Continue scheduled lactulose. Patient has been refusing lactulose. Patient received albumin x1. 2. Acute on chronic normocytic anemia-PRBC ordered. Plan to transfuse for hemoglobin less than 7. 3. Acute kidney injury with hyperkalemia-Kayexalate X2. Hyperkalemia resolved. Not improved with IV fluids, will discontinue further fluids. Trend BMP. 4. Hyponatremia-secondary to hypervolemia. Lasix on hold due to hypotension. 5. Thrombocytopenia, coagulopathy-secondary to #1. 6. Chronic alcohol dependence-reports he quit drinking May 2019. 7. Tobacco dependence-encouraged cessation. 8. Anxiety with panic attacks-recommended outpatient follow-up. 9. Hypertension-Lasix, spironolactone on hold due to hypotension. Initiated on midodrine. DVT prophylaxis-SCDs Discharge planning: Patient previously discharged home with hospice. Revoked hospice to come to hospital. Discussed extensively treatment options with patient, he is considering options. This patient was seen by CHIDI Hernandez under the supervision of Dr. Clay. <Evert Clay - Last Filed: 03/23/20 16:24> - Physical Exam Vitals/I&O's: Vital Signs Temp Pulse Resp BP Pulse Ox 36.6 C 67 18 97/38 L 94 03/23/20 15:20 03/23/20 15:20 03/23/20 15:20 03/23/20 15:20 03/23/20 15:20 Oxygen Flow Rate (L/min) 2 Oxygen Delivery Method Room Air Weight: 98.43 kg Body Mass Index (BMI) 30.2 Intake and Output for Last 24 Hours 03/21/20 03/22/20 03/23/20 23:59 23:59 23:59 Intake Total 4768.13 / 4768.13 3700 / 3700 640 / 640 Output Total 4675 / 4675 4550 / 4550 1100 / 1100 Balance 93.13 / 93.13 -850 / -850 -460 / -460 General: Alert, Cooperative HEENT: Atraumatic, Normocephalic Microbiology Past 72 Hours 03/20/20 15:45 Fluid - Peritoneal Gram Stain - Final 03/20/20 15:45 Fluid - Peritoneal Body Fluid Culture - Final Staphylococcus aureus 03/20/20 15:45 Fluid - Peritoneal Anaerobic Culture - Preliminary No anaerobic bacteria isolated. 03/19/20 16:30 Urine, Clean Catch Urine Culture - Final Culture exhibits no growth. 03/19/20 12:15 Blood Culture (Wb) - Anticubital Right Blood Culture - Prelim inary No growth in 48 hours. 03/19/20 11:00 Blood Culture (Wb) - Anticubital Left Blood Culture - Preliminary No growth in 48 hours. Laboratory Results 03/20/20 15:41: Crossmatch See Detail 03/20/20 15:41: Crossmatch See Detail 03/23/20 05:50: WBC 15.2 H, RBC 1.99 L, Hgb 6.4 L, Hct 18.3 L, MCV 92.0, MCH 32.2 H, MCHC 35.0, RDW Std Deviation 56.3 H, RDW Coeff of Pravin 17.1 H, Plt Count 75 L, MPV 10.1 03/23/20 05:50: Sodium 122 L, Potassium 4.4, Chloride 92 L, Carbon Dioxide 20.0 L, Anion Gap 10, BUN 84 H, Creatinine 2.60 H, Estim Creat Clear Calc 34.19, Est GFR (MDRD) Af Amer 33 L, Est GFR (MDRD) Non-Af 27 L, BUN/Creatinine Ratio 32.3 H , Glucose 88, Calcium 6.9 L Current Medications Benzonatate (Benzonatate 100 Mg Capsule) 100 mg PO TID PRN PRN PRN Reason: COUGH Last Admin: 03/23/20 04:19 Dose: 100 mg Documented by: Doxycycline Monohydrate (Doxycycline 100 Mg Capsule) 100 mg PO BID [facility] Last Admin: 03/23/20 09:25 Dose: 100 mg Documented by: Guaifenesin (Guaifenesin 10 Ml Udc (200mg/10ml)) 10 ml PO Q6H PRN PRN PRN Reason: COUGH Last Admin: 03/23/20 12:34 Dose: 10 ml Documented by: Lactulose (Lactulose 20 Gm/30 Ml Udc) 20 gm PO TID [facility] Last Admin: 03/23/20 14:04 Dose: 20 gm Documented by: Midodrine (Midodrine Hcl 5 Mg Tablet) 10 mg PO TID [facility] Last Admin: 03/23/20 14:04 Dose: 10 mg Documented by: Nutritional Formula (Nepro Liquid 120 Ml Liquid) 120 ml PO 4X/DAY [facility] Last Admin: 03/23/20 14:04 Dose: 120 ml Documented by: Ondansetron HCl (Ondansetron 4 Mg/2 Ml Vial) 4 mg IV Q8H PRN PRN PRN Reason: NAUSEA/VOMITING Rifaximin (Rifaximin 550 Mg Tablet) 550 mg PO BID [facility] Last Admin: 03/23/20 09:25 Dose: 550 mg Documented by: Sodium Chloride (0.9% Saline Lock 10 Ml Syringe) 10 - 40 ml IV UD PRN PRN Reason: SALINE FLUSH Tramadol HCl (Tramadol 50 Mg Tablet) 50 mg PO TID PRN PRN PRN Reason: Pain Score 1-10 Assessment/Plan Patient seen and examined independently. Data reviewed. I agree with the above note by the nurse practitioner. Greater than 50 minutes of which greater than 50% time was discussing with patient had a very extensive conversation with the patient in regards to his ascites, hospice, CODE STATUS. Explained the patient that it is uncommon for someone to have hospice services and be full code. Give the patient 3 options: 1. following up with Dr. Pineda and get back go through the transplant process. Once again explained that transplant would require him going through the work- up, getting his drain removed and medically managing his cirrhosis but he would have to agree to want to have transplant which he has previously disagreed. 2. Medical management and which would require removing hospice services and the patient would need to be established with a provider who would order his periodic paracentesis but explained to him also that paracentesis should only be used sparingly. That way he can continue to receive albumin if necessary. 3. Last option which was eventually what he has before would be essentially hos pice and that would also require the patient being DNR Comfort Care with no CPR no intubation focusing strictly on comfort measures. We did look into see if abdomen would be covered with hospice which she would not be and so patient does choose this route and he would be straight hospice. That way he can have hospice services come out to his home. Because him being full code they would not remove as much fluid as he would require only up to about 3 L per attempt. Focus strictly on his symptoms that they could be little more liberal in regards to what ever is most comfortable for him. I told him to think it over tonight and give us decision tomorrow and that we may proceed accordingly. Inpatient E&M: [id number] [facility] L3
--- NOTE | 2020-03-23 16:54 | CASEMGMT ---
splitter machine Coordination Follow-up: This RN CM met with pt [id number] in pt's room. Pt up in chair and agreeable to visit. Pt stated he was in a grouchy mood due to everyone coming in and out all day, interrogating him with questions, making him get out of bed when he was comfortable in bed and wanting to nap, leaving lights on when they leave that he doesn't want on, etc. Pt states this is my house right now and described wanting to be able to say what is going on in his room. Pt stated that he is a very independent person at home. Reiterated to patient that he has been very independent and that he has done a good job of maintaining his independence, staying on top of his bills, driving, getting his own groceries, etc. despite his liver disease and how he has felt. Explained to pt that with the progression of his liver disease, he is losing this independence. Pt states he needs to get home because he has responsibilities which he further listed as taking care of his condo, getting groceries, and paying bills. Asked pt if he has been in contact with the hospice who would be able to help him figure out how to take care of these responsibilities. He could not recall and stated he had lots of people in and out so he couldn't say for sure. (sales team manager yesterday stated pt did not return the hospice SW's calls.) Reviewed with patient his current state compared to previous. Recalled that when first working with him the question was if his liver would improve but we have seen that it has not improved and over the past month and a half he has experienced further decline in his liver function. Reviewed labs including the fact that pt's Hgb is not staying up, Na has remained low, and kidney function is declining. Explained that as the liver disease continues to decline he will continue to experience further organ failures including brain fogginess. Pt able to state that he is taking medicine to prevent that. Discussed that he had not been taking lactulose at home as prescribed. Pt states he has a bottle on his table that is half empty. Pt states we need to figure out how to fix these things. Explained that they cannot be fixed as the liver affects many different organ systems. Explained that all of these factors will lead to his inability to be able to be independent like he wants (such as drive to complete errands, get groceries, etc.) and that he will need to rely on someone to take care of him. Explained that this may be the time that he needs to start relying on others. Pt asked how much time he has left. Pt had stated that he did not feel he was being treated with dignity. Explained that we never know for sure when it will be his last day but hospice's goal is to ensure that he is treated with as much dignity as possible in his last days. Pt stated he needed to figure out what to do with his car and his condo. Explained that the hospice SW would be the best person to assist him with with these matters. Pt states he may be discharged tomorrow and plans to return home at that time. Explained to pt that he will need to demonstrate that he is able to be ambulatory in his room so we know that he will be able to get around in his apartment when alone. Pt states he feels he will be able to get around his apartment. Will continue to follow for assistance with discharge planning and decision making. Jeison Bolton RN CM
[2020-03-23] MEDS: Calcium Carbonate 500 MG Tablet PO (21:29)
[2020-03-24 00:05] VITALS: BP 96/56; PULSE 70; RESP 18; TEMP 36.8; O2SAT 98
[2020-03-24] MEDS: guaiFENesin 10 ML UDC (200MG/10ML) PO (02:45)
[2020-03-24 03:00] VITALS: PULSE 73
[2020-03-24 05:53] LABS: Hematocrit 24.4 % (40-54); Hemoglobin 8.6 g/dL (13.0-16.5); Mean Corp Hgb Conc 35.2 g/dL (32-36); Mean Corpuscular Hgb 31.2 pg (27.0-32.0); Mean Corpuscular Volume 88.4 fL (80-94); Mean Platelet Vol. 10.4 fl (6.2-12.0); POSITIVE COUNT YES; Platelet Count 72 K/mm3 (150-450); RBC Distribution Width CV 16.3 % (11.6-14.6); RBC Distribution Width SD 50.6 fl (35.1-43.9); Red Blood Count 2.76 M/mm3 (4.6-6.2); White Blood Count 14.4 K/mm3 (4.4-11.0)
[2020-03-24 06:05] VITALS: BP 91/51; PULSE 78; RESP 18; TEMP 36.9; O2SAT 95
[2020-03-24 06:24] LABS: Anion Gap 9 (5-15); BUN 91 mg/dL (7-18); BUN/Creat Ratio 37.8 RATIO (10-20); Calcium,Total 7.5 mg/dL (8.5-10.1); Chloride 94 mmol/L (98-107); Creatinine, Serum 2.41 mg/dL (0.70-1.30); EST Glomerular Filtration Rate 30 mL/min (>60); Est Glom Filt Rate - Afr Amer 36 mL/min (>60); Estimated Creatinine Clearance 36.89 ml/min; Glucose 105 mg/dL (74-106); Potassium 4.2 mmol/L (3.5-5.1); Sodium Level 122 mmol/L (136-145)
[2020-03-24] MEDS: Lactulose 20 GM/30 ML UDC PO (06:32)
[2020-03-24] MEDS: Midodrine HCl 5 MG Tablet 10 MG PO (06:32)
[2020-03-24 07:00] VITALS: PULSE 77
[2020-03-24] MEDS: rifAXIMin 550 MG Tablet PO (10:01)
[2020-03-24] MEDS: Doxycycline 100 MG CAPSULE PO (10:01)
[2020-03-24] MEDS: Nepro Liquid 120 ML LIQUID PO (10:07)
--- NOTE | 2020-03-24 10:09 | DCINST_ITS ---
You will use the following diet at home:: No restrictions Discharge Activity: Return to Normal Activity Call your doctor if you observe: Shortness of breath, Dizziness, Fainting spells, Chest pain Allergies/Adverse Reactions: Allergies lisinopril Allergy (Verified 03/19/20 10:31) PT UNSURE OF REACTION acetaminophen [From Tylenol] Adverse Reaction (Verified 03/19/20 10:31) LIVER ISSUES codeine Adverse Reaction (Verified 03/19/20 10:31) Nausea diphenhydramine [From Benadryl] Adverse Reaction (Verified 03/19/20 10:31) passed out Given with blood transfusion and pt states he passed out afterwards hydrocodone [From Vicodin] Adverse Reaction (Verified 03/19/20 10:31) Itching Medications to take at Discharge Spironolactone 50 mg PO DAILY 02/11/20 Furosemide [Lasix] 40 mg PO DAILY 03/04/20 Folic Acid 1 mg PO DAILY@0800 03/19/20 Doxycycline 100 mg PO BID #6 cap 03/24/20 Midodrine HCl [Proamatine] 10 mg PO TID #60 tab 03/24/20 The following prescriptions were given: Doxycycline 100 mg PO BID #6 cap Transmission Status: Pending to [facility] Midodrine HCl [Proamatine] 10 mg PO TID #60 tab Transmission Status: Pending to [facility] Primary Care Physician: Jayesh Jeffers MD [Primary Care Provider] - Test Results: Test results from this visit will be discussed in further detail at your follow- up appointment, if applicable. Please Follow Up With: Home with Hospice Proposed Discharge Date: 03/24/20
--- NOTE | 2020-03-24 10:11 | DS.PCM_ITS ---
<Tara Pedraza [employer] - Last Filed: 03/24/20 10:32> Discharge Date and Diagnosis Date of Admission: 03/19/20 Date of Discharge: 03/24/20 - Primary Discharge Diagnosis Acute Problems: 1. Severe sepsis suspected secondary to SBP 2. 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 Acute on chronic normocytic anemia 3. Acute kidney injury with hyperkalemia 4. Hyponatremia 5. Thrombocytopenia, coagulopathy 6. Chronic alcohol dependence 7. Tobacco dependence 8. Anxiety with panic attacks 9. Hypertension - Secondary Discharge Diagnosis Chronic Problems: Chronic Problems (Last Reviewed 03/12/20 @ 12:54 by Annette Santo) Chronic anemia (Chronic) HTN (hypertension) (Chronic) Alcoholism (Chronic) Alcoholic cirrhosis (Chronic) Anasarca (Chronic) Ascites (Chronic) Hyponatremia (Chronic) Anemia (Chronic) Hospital Course and Treatment Imaging Results: Diagnostic Data Chest X-Ray 03/19/20 12:07 IMPRESSION: Minimal bibasilar atelectasis. I suspect a small amount of free air beneath the right hemidiaphragm. Electronically Signed: Demar Chamberlain MD at 12:53 EST , Service support , Abdomen/Pelvis CT 03/19/20 13:50 IMPRESSION: Small left pleural effusion with left basilar atelectasis. Small amount of perihepatic and perisplenic fluid as well as fluid within the pelvis. The small amount of free air beneath the right hemidiaphragm is most likely secondary to the drainage catheter seen within the abdomen. Electronically Signed: Demar Chamberlain MD at 14:33 EST , Service support , Operations: None Procedures: None Summary of Care Provided: The patient is a 54 year old M admitted 03/19/2020 due to shortness of breath. 1. Severe sepsis suspected secondary to SBP-patient had intra-abdominal Pleurx catheter placed 03/05/2020 for uncontrolled ascites related to alcoholic cirrhosis. Peritoneal fluid culture grew rare staph aureus. On oral doxycyc line to complete course. Blood and urine cultures negative. No other source of infection identified. 2. 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 Xifaxan and lactulose during admission. Patient received albumin x1. Continue Pleurx catheter drainage per hospice protocol. 2. Acute on chronic normocytic anemia-status post 3 units PRBC. Plan to transfuse for hemoglobin less than 7. 3. Acute kidney injury with hyperkalemia-Kayexalate X2. Hyperkalemia resolved. Creatinine not improved with IV fluids. 4. Hyponatremia-secondary to hypervolemia. Lasix on hold during admission due to hypotension. 5. Thrombocytopenia, coagulopathy-secondary to #1. 6. Chronic alcohol dependence-reports he quit drinking May 2019. 7. Tobacco dependence-encouraged cessation. 8. Anxiety with panic attacks-recommended outpatient follow-up. 9. Hypertension-resume Lasix, spironolactone at discharge with hold parameters. Initiated on midodrine. General: Alert, Oriented x3, Cooperative HEENT: Atraumatic, PERRLA, EOMI, Normocephalic Neck: Supple, No JVD, Negative Carotid Bruits Lungs: Clear to auscultation, Diminished Cardiovascular: Regular rate, No murmurs Abdomen: Bowel Sounds Present, Soft, Non Tender, Non-Distended, - - Ascites Extremities: No clubbing, No cyanosis, No edema Skin: No rashes, No breakdown Musculoskeletal: No Tenderness to Palpation of Joints or Extremities Neurological: Cranial nerves II-XII grossly intact, Neuro grossly intact Psych/Mental Status: Flat Affect Patient seen and examined prior to discharge. Physical assessment as noted above. Patient would like to return home with hospice at discharge however he would like to remain a full code at this time. He states he will further think about CODE STATUS in his own environment. Recommend further consideration and discussion with hospice on transitioning to DNR status given poor prognosis and hospice status. Of note, patient was offered aggressive treatment option including referral for transplant process and he declined. This patient was seen by CHIDI Hernandez under the supervision of Dr. Clay. - Physical Exam Vitals/I&O's: Vital Signs Temp Pulse Resp BP Pulse Ox 98.4 F 77 18 91/51 L 95 03/24/20 06:05 03/24/20 07:00 03/24/20 06:05 03/24/20 06:05 03/24/20 06:05 Oxygen Flow Rate (L/min) 2 Oxygen Delivery Method Room Air Weight: 217 lb 0.016 oz Body Mass Index (BMI) 30.2 Intake and Output for Last 24 Hours 03/22/20 03/23/20 03/24/20 23:59 23:59 23:59 Intake Total 3700 / 3700 1520 / 1520 640 / 640 Output Total 4550 / 4550 2600 / 2600 750 / 750 Balance -850 / -850 -1080 / -1080 -110 / -110 Microbiology Past 72 Hours 03/20/20 15:45 Fluid - Peritoneal Gram Stain - Final 03/20/20 15:45 Fluid - Peritoneal Body Fluid Culture - Final Staphylococcus aureus 03/20/20 15:45 Fluid - Peritoneal Anaerobic Culture - Preliminary No anaerobic bacteria isolated. 03/19/20 16:30 Urine, Clean Catch Urine Culture - Final Culture exhibits no growth. 03/19/20 12:15 Blood Culture (Wb) - Anticubital Right Blood Culture - Preliminary No growth in 48 hours. 03/19/20 11:00 Blood Culture (Wb) - Anticubital Left Blood Culture - Preliminary No growth in 48 hours. Laboratory Results 03/20/20 15:41: Crossmatch See Detail 03/20/20 15:41: Crossmatch See Detail 03/23/20 17:29: Crossmatch See Detail 03/24/20 05:24: WBC 14.4 H, RBC 2.76 L, Hgb 8.6 L, Hct 24.4 L, MCV 88.4, MCH 31.2, MCHC 35.2, RDW Std Deviation 50.6 H, RDW Coeff of Pravin 16.3 H, Plt Count 72 L, MPV 10.4 03/24/20 05:24: Sodium 122 L, Potassium 4.2, Chloride 94 L, Carbon Dioxide 19.0 L, Anion Gap 9, BUN 91 H, Creatinine 2.41 H, Estim Creat Clear Calc 36.89, Est GFR (MDRD) Af Amer 36 L, Est GFR (MDRD) Non-Af 30 L, BUN/Creatinine Ratio 37.8 H , Glucose 105, Calcium 7.5 L Current Medications Benzonatate (Benzonatate 100 Mg Capsule) 100 mg PO TID PRN PRN PRN Reason: COUGH Last Admin: 03/23/20 04:19 Dose: 100 mg Documented by: Calcium Carbonate (Calcium Carbonate 500 Mg Tablet) 500 mg PO Q4H PRN PRN PRN Reason: HEART BURN Last Admin: 03/23/20 21:29 Dose: 500 mg Documented by: Doxycycline Monohydrate (Doxycycline 100 Mg Capsule) 100 mg PO BID [facility] Last Admin: 03/24/20 10:01 Dose: 100 mg Documented by: Guaifenesin (Guaifenesin 10 Ml Udc (200mg/10ml)) 10 ml PO Q6H PRN PRN PRN Reason: COUGH Last Admin: 03/24/20 02:45 Dose: 10 ml Documented by: Lactulose (Lactulose 20 Gm/30 Ml Udc) 20 gm PO TID [facility] Last Admin: 03/24/20 06:32 Dose: 20 gm Documented by: Midodrine (Midodrine Hcl 5 Mg Tablet) 10 mg PO TID [facility] Last Admin: 03/24/20 06:32 Dose: 10 mg Documented by: Nutritional Formula (Nepro Liquid 120 Ml Liquid) 120 ml PO 4X/DAY [facility] Last Admin: 03/24/20 10:07 Dose: 120 ml Documented by: Ondansetron HCl (Ondansetron 4 Mg/2 Ml Vial) 4 mg IV Q8H PRN PRN PRN Reason: NAUSEA/VOMITING Rifaximin (Rifaximin 550 Mg Tablet) 550 mg PO BID [facility] Last Admin: 03/24/20 10:01 Dose: 550 mg Documented by: Sodium Chloride (0.9% Saline Lock 10 Ml Syringe) 10 - 40 ml IV UD PRN PRN Reason: SALINE FLUSH Tramadol HCl (Tramadol 50 Mg Tablet) 50 mg PO TID PRN PRN PRN Reason: Pain Score 1-10 Discharge Activity: Return to Normal Activity Call your doctor if you observe: Shortness of breath, Dizziness, Fainting spells, Chest pain Home Medications: Medications to take at Discharge Spironolactone 50 mg PO DAILY 02/11/20 Furosemide [Lasix] 40 mg PO DAILY 03/04/20 Folic Acid 1 mg PO DAILY@0800 03/19/20 Doxycycline 100 mg PO BID #6 cap 03/24/20 Midodrine HCl [Proamatine] 10 mg PO TID #60 tab 03/24/20 Following Prescriptions Were Given to Patient: Doxycycline 100 mg PO BID #6 cap Transmission Status: Received by SWETA LEONVELAND ANA LUISA Midodrine HCl [Proamatine] 10 mg PO TID #60 tab Transmission Status: Received by SWETA [id number] Primary Care Physician: Jayesh Jeffers MD [Primary Care Provider] - Please Follow Up With: Home with Hospice Disposition: Home with Hospice Minutes spent on discharge:: 40 Patient Condition:: Fair Medical Necessity - Tobacco Use Smoking Status: Current every day smoker Tobacco Use: Cigarettes Meaningful Use Info Meaningful Use Diagnoses (Choose all that apply): None applicable <Evert Clay - Last Filed: 03/24/20 16:29> Discharge Date and Diagnosis - Secondary Discharge Diagnosis Chronic Problems: Chronic Problems (Last Reviewed 03/12/20 @ 12:54 by Annette Santo) Chronic anemia (Chronic) HTN (hypertension) (Chronic) Alcoholism (Chronic) Alcoholic cirrhosis (Chronic) Anasarca (Chronic) Ascites (Chronic) Hyponatremia (Chronic) Anemia (Chronic) Hospital Course and Treatment Operations: None Procedures: None Summary of Care Provided: Patient seen and examined independently. Data reviewed. I agree with the above note by the nurse practitioner. The patient is a 54 year old M presents with copious ascites. Patient was at home and has been involved with hospice in regards to his recurrent ascites due to cirrhosis. Patient had what he described as 10 to 11 L of fluid the just spilled out into his sink from his Pleurx catheter. Came into the emergency room because of this. Patient did have a culture that did show MSSA. Whether or not that was a true infection or colonization is unclear but patient did not really present like spontaneous bacterial peritonitis. Patient does have recurrent ascites that has been refractory to medicine. He recently had a Pleurx catheter placed for palliation. Patient could not be established with palliative care because he would be responsible for paying for the Vacutainer's so he decided to go with hospice where that would be covered. But despite being hospice, patient wishes to be full code and get medical treatment including albumin. Patient did receive some albumin here but I have had very lengthy conversations about the contrasting desires and treatment. Contrasting because patient does want some medical management but does not want a transplant he wants hospice services so only that he can get recurrent paracentesis. I have impressed upon him that him getting these recurrent paracenteses are going to progressively weaken him further which goes contrary to him wanting more of medical therapy. I told him that if he wants medical therapy then we need to get his drain out and treat him as best we can with medicine but informing him that the definitive treatment is a liver transplant which patient has previously not wanted and still does not want. Patient informed that if he wanted medical treatment with resuming paracentesis then he would need to contact Dr. Pineda in regards to ordering recurrent paracentesis or be established with another physician. Patient stated that Dr. Harden would do that. I asked the patient when the last time he had seen Dr. Harden and he stated that was 10 years ago. I informed patient that he is no longer established with Dr. Gilbert and would need to follow-up with him if he wished to proceed with that. I told him that it is ultimately his decision and if he were to be on transplant anyway it would be a matter of years before he could potentially even get a transplant. Complicating this further is the fact that he has no family who lives with him who would be able to assist him if he would need to get up to a transplant center sooner if a donor became available. I told the patient that he should if he wishes to have hospice services, be DNR comfort care. He states that he is a fighter and not ready to give up yet. I told him that him wanting to be full code limits what hospice can do for him. Currently they can only take off so much fluid from him at a time as it may make him more hemodynamically unstable. If you were hospice they could be more liberal in taking off fluid as long as it is providing him comfort. I also told him that in the event of a cardiac arrest the likelihood of him surviving is very minimal and I strongly recommended against CPR for him in the event of cardiac arrest. He wishes to think about it and wishes to get out of this artificial place and be at home with his hospice services. I strongly suspect that the patient would not be managed effectively with the current arrangements of being full code with hospice services for his recurrent paracentesis. He should choose either strict comfort and hospice services or he should choose medical management not both because it simply not going to work. Patient does say that he is going to think about it and come to a decision later. Patient has been given many ample opportunities during this hospitalization to think about it and still he has not come to a definitive conclusion and is essentially going back to what he was doing before despite all the evidence that states that decision is not going to work out. [] - Physical Exam Vitals/I&O's: Vital Signs Temp Pulse Resp BP Pulse Ox 36.8 C 81 16 100/37 L 99 03/24/20 12:05 03/24/20 12:05 03/24/20 12:05 03/24/20 12:05 03/24/20 12:05 Oxygen Flow Rate (L/min) 2 Oxygen Delivery Method Room Air Weight: 98.43 kg Body Mass Index (BMI) 30.2 Intake and Output for Last 24 Hours 03/22/20 03/23/20 03/24/20 23:59 23:59 23:59 Intake Total 3700 / 3700 1520 / 1520 1220 / 1220 Output Total 4550 / 4550 2600 / 2600 1550 / 1550 Balance -850 / -850 -1080 / -1080 -330 / -330 General: Alert, No apparent distress HEENT: Atraumatic, Normocephalic Microbiology Past 72 Hours 03/19/20 12:15 Blood Culture (Wb) - Anticubital Right Blood Culture - Final No growth in 5 days. 03/19/20 11:00 Blood Culture (Wb) - Anticubital Left Blood Culture - Final No growth in 5 days. 03/20/20 15:45 Fluid - Peritoneal Gram Stain - Final 03/20/20 15:45 Fluid - Peritoneal Body Fluid Culture - Final Staphylococcus aureus 03/20/20 15:45 Fluid - Peritoneal Anaerobic Culture - Preliminary No anaerobic bacteria isolated. 03/19/20 16:30 Urine, Clean Catch Urine Culture - Final Culture exhibits no growth. Laboratory Results 03/20/20 15:41: Crossmatch See Detail 03/23/20 17:29: Crossmatch See Detail 03/24/20 05:24: WBC 14.4 H, RBC 2.76 L, Hgb 8.6 L, Hct 24.4 L, MCV 88.4, MCH 31.2, MCHC 35.2, RDW Std Deviation 50.6 H, RDW Coeff of Pravin 16.3 H, Plt Count 72 L, MPV 10.4 02/03/21 05:24: Sodium 122 L, Potassium 4.2, Chloride 94 L, Carbon Dioxide 19.0 L, Anion Gap 9, BUN 91 H, Creatinine 2.41 H, Estim Creat Clear Calc 36.89, Est GFR (MDRD) Af Amer 36 L, Est GFR (MDRD) Non-Af 30 L, BUN/Creatinine Ratio 37.8 H , Glucose 105, Calcium 7.5 L Discharge Activity: Return to Normal Activity Disposition: Home with Hospice Minutes spent on discharge:: 40 Patient Condition:: Fair Medical Necessity - Tobacco Use Tobacco Use: Cigarettes Meaningful Use Info Meaningful Use Diagnoses (Choose all that apply): None applicable Inpatient E&M: 14386 Disch Hosp
--- NOTE | 2020-03-24 11:17 | CASEMGMT ---
Pt is ready for discharge and will be returning home back on hospice. SW faxed discharge instructions and summary to [facility]. SW spoke w/pt, his friend will be picking him up soon, he is not certain exactly what time, waiting for the discharge instructions. SW asked pt to call Hospice once he is home, gave pt the number. SW called [facility], spoke w/Maida, let her know pt is going home today back on hospice and let her know asked pt to call when he gets home. No further needs anticipated. Pt home today. HARDEEP Nation
--- NOTE | 2020-03-24 11:19 | PHA.DC.MR ---
Pharmacy Service has performed discharge medication reconciliation for this patient. The patient's discharge medication list was reviewed for discrepancies and discrepancies were resolved. Home Medications Spironolactone 50 mg PO DAILY 02/11/20 Furosemide [Lasix] 40 mg PO DAILY 03/04/20 Folic Acid 1 mg PO DAILY@0800 03/19/20 Doxycycline 100 mg PO BID #6 cap 03/24/20 Midodrine HCl [Proamatine] 10 mg PO TID #60 tab 03/24/20
[2020-03-24] MEDS: traMADol 50 MG Tablet PO (11:56)
[2020-03-24 12:05] VITALS: BP 100/37; PULSE 81; RESP 16; TEMP 36.8; O2SAT 99
--- NOTE | 2020-03-24 12:47 | NURSING ---
This RN into room to give x1 dose of oxy. Pt stated pain is easing up and asked this nurse to put that pain medication in a cup with a lid so I can just take it home. This RN advised pt that I am not able to send medications home with pt like that and that medication is a narcotic. Pt then stated whatever, my ride is here. Pain medication refused by pt. Called for wheelchair to take pt downstairs to go home.
--- NOTE | 2020-03-24 15:07 | NURSING ---
Report called to Marely, mental health nurse practitioner.
[2020-03-27 17:04] LABS: Glucose, Body Fluid 129 mg/dL (40-70)
== END 2020-03-24 12:51 | disposition hospice, home (50) | DRG 871 ==
LOC: ED 11:37 → PCU 18:03
PROVIDERS: Nurse Practitioner Family; Admitting Provider Family Medicine; Emergency Provider Emergency Medicine; PCP Family Medicine
DX: A41.01 Sepsis due to Methicillin susceptible Staphylococcus aureus (principal); K65.2 Spontaneous bacterial peritonitis; N17.9 Acute kidney failure, unspecified; E87.1 Hypo-osmolality and hyponatremia; D68.4 Acquired coagulation factor deficiency; K76.6 Portal hypertension; E87.2 Acidosis; K70.40 Alcoholic hepatic failure without coma; K70.31 Alcoholic cirrhosis of liver with ascites; D64.9 Anemia, unspecified; E87.5 Hyperkalemia; D69.59 Other secondary thrombocytopenia; F41.0 Panic disorder [episodic paroxysmal anxiety]; I10 Essential (primary) hypertension; E86.0 Dehydration; R09.02 Hypoxemia; I95.9 Hypotension, unspecified; F17.210 Nicotine dependence, cigarettes, uncomplicated; E87.70 Fluid overload, unspecified; F10.20 Alcohol dependence, uncomplicated
CPT/HCPCS: 36415; 71045; 74177; 80048; 80053; 81001; 82140; 82945; 83605; 84157; 85025; 85027; 85610; 85730; 86850; 86900; 86901; 86920; 86922; 87040; 87070; 87075; 87077; 87086; 87186; 87205; 87426; 93005; 94640; 97162; 97166; 97803; 99285; 99406; J7030; J7040; J7050; P9016; P9047; Q9967; A4216; J0610

== ENCOUNTER 2020-04-01 13:21 | Inpatient (IN) | payer OTHER, SELFPAY ==
[2020-03-19 17:31] VITALS: BMI 30.2
[2020-04-01] VITALS (18 sets, daily range): BP systolic 80–98; BP diastolic 25–61; PULSE 66–80; RESP 12–20; TEMP 36.3–36.4; O2SAT 90–100; BMI 29.3; BMI 29.4; BMI 28.3
--- NOTE | 2020-04-01 13:48 | ED.DCSUM_ITS ---
History of Present Illness Chief Complaint: Weakness Informant: Patient Narrative: 54-year-old male with past medical history of alcoholic cirrhosis and liver failure presents with concern for weakness and vision change. Patient states that he began having vision changes 2 days ago while he was at home and getting up to use the bathroom in the middle of the night. States he fell at that time. States he struck his chest on the door. Denies any loss of consciousness. States he has been feeling very weak and is having difficulty getting up. Denies any fever or chills. Is having persistent abdominal pain which he usually has secondary to his alcoholic cirrhosis. Patient was recently admitted to the hospital for sepsis secondary to spontaneous bacterial peritonitis. Patient is on hospice at home but revoked this when he comes to the emergency department. Past Medical History - Allergies and Home Meds Allergies/Adverse Reactions: Allergies lisinopril Allergy (Verified 04/01/20 13:26) PT UNSURE OF REACTION acetaminophen [From Tylenol] Adverse Reaction (Verified 04/01/20 13:26) LIVER ISSUES codeine Adverse Reaction (Verified 04/01/20 13:26) Nausea diphenhydramine [From Benadryl] Adverse Reaction (Verified 04/01/20 13:26) passed out Given with blood transfusion and pt states he passed out afterwards hydrocodone [From Vicodin] Adverse Reaction (Verified 04/01/20 13:26) Itching Primary Care Physician: Jayesh Jeffers MD [Primary Care Provider] - Prior records reviewed: Yes Past Medical History: - - liver failure, alcoholic chirrosis Surgical History: - - Inguinal and umbilical hernia repair, colonoscopy, Lives: Alone Smoking Status: Current every day smoker Alcohol: Sober Drugs: None - Family History Maternal Family History: Reports: Cancer - colon, Hypertension, Stroke Paternal Family History: Reports: Heart Disease, Hypertension Review of Systems ROS: Unable to Obtain General: Denies: Chills, Fever, Sweats Eyes: Reports: Visual changes - bilaterally. Denies: Diplopia ENT: Denies: Rhinorrhea, Sore throat Cardiovascular: Denies: Chest pain, Palpitations Respiratory: Denies: Dyspnea, Cough, Dyspnea on exertion Gastrointestinal: Reports: Abdominal pain. Denies: Nausea, Vomiting, Diarrhea, Melena, Hematochezia Genitourinary: Denies: Dysuria, Hematuria, Frequency Musculoskeletal: Denies: Back pain, Extremity Pain Skin: Denies: Rash, Wounds Neurological: Reports: Weakness. Denies: Headache, Numbness Physical Exam Vital Signs/Narrative: Vital Signs Temp Pulse Resp BP Pulse Ox 04/01/20 13:23 97.4 F L 72 15 80/35 L 99 Inital Vital Signs reviewed: Yes General: Cachectic, No Acute Distress Head: Normocephalic, Atraumatic Eyes: Perrl, EOMI, Scleral icterus ENT: Moist mucous membranes, No rhinorrhea Neck: Supple, Nontender Cardiovascular: Regular rate, Regular rhythm, No murmurs Respiratory: No distress, CTA bilaterally, Chest nontender Abdomen: Soft, Nondistended, Normal bowel sounds, Tender, Hepatomegaly, - - TTP throughout. No rebound or rigidity. Back: Nontender, Normal Inspection Extremities: Nontender, No edema Skin: No rash, Jaundice Neurological: Alert, Oriented x3, Cranial nerves II-XII grossly intact, Normal Strength, Normal Sensation Psychological: Normal affect, Normal Mood Diagnostic/Tx/Re-eval Clinical Impression(s) from Imaging Studies Brain CT 04/01/20 13:49 IMPRESSION: Normal unenhanced CT scan of the brain. Electronically Signed: Arvin Vallecillo MD at 14:47 EST , Service support , Abdomen/Pelvis CT 04/01/20 13:50 IMPRESSION: 1. Decrease volume of ascites overlying the surface of the cirrhotic liver. 2. Small hypodense cysts in the left hepatic lobe are unchanged. 3. Contracted gallbladder contains 2.3 cm gallstone. 4. 5 mm nonobstructing calculus in the right lower renal pole, another 2 mm nonobstructing calculus in the right lower renal pole and 3 mm nonobstructing calculus in the right kidney. These are unchanged. 5. Nonvisualization of the appendix but no secondary signs of acute appendicitis. The appendix may be postsurgically absent. 6. Mild haziness of the mesenteric fat is unchanged. 7. Chronic mild thickening of the urinary bladder wall is unchanged. 8. Improvement of the partial atelectases and there bronchograms in the left lower lobe. This is replaced with curvilinear subsegmental atelectases in the left lung base. 9. New partial atelectases in the right posterior lung base with air bronchograms. Electronically Signed: Arvin Vallecillo MD at 15:03 EST , Service support , Laboratory Data 04/01/20 04/01/20 04/01/20 14:00 14:00 14:00 WBC 23.4 H RBC 2.81 L Hgb 9.1 L Hct 25.6 L MCV 91.1 MCH 32.4 H MCHC 35.5 RDW Std Deviation 55.3 H RDW Coeff of Pravin 16.8 H Plt Count 74 L MPV 11.6 Immature Gran % (Auto) 2.900 H Neut % (Auto) 85.1 H Lymph % (Auto) 4.5 L Delta % (Auto) 7.0 Eos % (Auto) 0.3 Baso % (Auto) 0.2 Absolute Neuts (auto) 19.9 H Absolute Lymphs (auto) 1.04 Nucleated RBC % 0 Differential Comment COMMENT Diff Path Review May foll Platelet Estimate MOD DEC Sodium 113 L* Potassium 6.7 H* Chloride 85 L Carbon Dioxide 16.0 L Anion Gap 12 BUN 150 H* Creatinine 4.45 H Estim Creat Clear Calc 19.98 Est GFR (MDRD) Af Amer 18 L Est GFR (MDRD) Non-Af 15 L BUN/Creatinine Ratio 33.7 H Glucose 64 L Lactic Acid 2.3 H* Calcium 9.1 Total Bilirubin 6.10 H AST 68 H ALT 44 Alkaline Phosphatase 159 H Ammonia Total Protein 5.6 L Albumin 1.9 L Globulin 3.7 Albumin/Globulin Ratio 0.5 L Lipase 756 H 04/01/20 15:17 WBC RBC Hgb Hct MCV MCH MCHC RDW Std Deviation RDW Coeff of Pravin Plt Count MPV Immature Gran % (Auto) Neut % (Auto) Lymph % (Auto) Delta % (Auto) Eos % (Auto) Baso % (Auto) Absolute Neuts (auto) Absolute Lymphs (auto) Nucleated RBC % Differential Comment Diff Path Review Platelet Estimate Sodium Potassium Chloride Carbon Dioxide Anion Gap BUN Creatinine Estim Creat Clear Calc Est GFR (MDRD) Af Amer Est GFR (MDRD) Non-Af BUN/Creatinine Ratio Glucose Lactic Acid Calcium Total Bilirubin AST ALT Alkaline Phosphatase Ammonia < 10.0 L Total Protein Albumin Globulin Albumin/Globulin Ratio Lipase - Rhythm Strip Rhythm Strip: Sinus Rhythm Rate: 69 - EKG Initial EKG Interpretation: Sinus Rhythm - Normal sinus rhythm at 69 bpm. MN interval of 238 ms with a first-degree AV block. QTC of 439 ms. Nonspecific intraventricular block. - Medical Decision Making Patient appears ill. Hypotensive. Jaundice. Abdominal tenderness. Concern for sepsis secondary to spontaneous bacterial peritonitis. Patient was given a liter of normal saline. He was also given 2 g of Rocephin. Initial labs show significant hyponatremia 113, significant hyperkalemia at 6.7. Patient also has a leukocytosis of 23,000. Patient has a chronic anemia as well as thrombocytopenia secondary to his liver disease. Patient's creatinine has increased to 4.4 as well as a BUN of 150 significantly increased from his baseline. Patient remained hypotensive and was given another 1 L of normal saline. Repeat BMP will be drawn given concern for rapid correction of his sodium. Following second liter patient's blood pressure is improving with a systolic of 94. Patient's mentation is also improving. Ammonia negative. Patient had been given albuterol, sodium bicarbonate, Kayexalate, calcium gluconate for his hyperkalemia. CT of the abdomen pelvis without contrast was done which shows no acute findings. Patient does have a peritoneal catheter in his abdomen. Spoke initially with hospitalist at [facility] who felt he needed a higher level of care. Spoke with Dr. Donovan education specialist at [facility] who was agreeable with transfer but there may be a significant delay giving hospital overcrowding. Spoke again with hospital at [facility] who is agreeable to admit to our ICU pending transfer. Patient in critical but stable condition upon admission. Impression: 1. Sepsis secondary to spontaneous bacterial peritonitis 2. Hypotension - improving 3. Severe hyponatremia 4. Hyperkalemia 5. Acute renal failure - Critical Care Time Critical care time (excluding procedures): 75-104 minutes, Discussing w/Patient &/or Family/Slat Basket Top Maker, Discussing w/Consultants, Arranging Admission or Transfer, Performing Direct Patient Care at Bedside ED Disposition - Plan for ED Patient: Disposition: Acute Care Hospital [facility] Referrals: Jayesh Jeffers MD [Primary Care Provider] -
--- NOTE | 2020-04-01 13:49 | CT_ITS ---
STUDY: CT BRAIN WITHOUT CONTRAST REASON FOR EXAM: Male, 54 years old. HEAD INJURY RADIATION DOSAGE (If Supplied By Facility): CTDIvol = ( 44.99 ) mGy, DLP = ( 812.98 ) mGycm TECHNIQUE: Transaxial CT imaging of the brain was performed without administration of intravenous contrast material. Coronal and sagittal reconstructions were performed. Individualized dose optimization techniques were used for this CT. COMPARISON: None. FINDINGS: Normal soft tissue structures. Normal calvarium. Normal size ventricles and extra-axial spaces for the patient''s age. Normal white matter tracts of the cerebral hemispheres. Normal basal ganglia and thalami. Normal brainstem. Normal cerebellum. There is no intracranial hemorrhage. There are no findings of an acute ischemic infarction. Normal visualized paranasal sinuses. CT/Brain/Head without Contrast IMPRESSION: Normal unenhanced CT scan of the brain. Electronically Signed: Arvin Vallecillo MD at 14:47 EST , Service support ,
--- NOTE | 2020-04-01 13:50 | CT_ITS ---
STUDY: CT ABDOMEN AND PELVIS WITHOUT CONTRAST REASON FOR EXAM: Male, 54 years old. Abdominal pain. Cirrhosis. RADIATION DOSAGE (If Supplied By Facility): CTDIvol = ( 20.04 ) mGy, DLP = ( 1111.73 ) mGycm TECHNIQUE: Transaxial images were obtained from the dome of the diaphragm to the symphysis pubis without oral contrast, and without intravenous contrast. Sagittal and coronal images were reconstructed. Individualized dose optimization techniques were used for this CT. COMPARISON: CT abdomen and pelvis with contrast 03/19/2020. FINDINGS: Partial atelectases with air bronchograms in the right posterior lung base. Improvement of air bronchograms in focal atelectases in the posterior lung base. Minimal residual curvilinear subsegmental atelectases in the left posterior lung base. The visualized portions of the heart are within normal limits. Nodularity of the liver surface due to liver cirrhosis. Small hypodense cysts decreased volume ascites around the liver surface. In the left hepatic lobe. Contracted gallbladder contains 2.3 cm gallstone. The gallstone is unchanged. Normal spleen. Normal pancreas. Normal bilateral adrenal glands. Right kidney: 5 mm nonobstructing calculus in the lower pole. 2 mm nonobstructing calculus in the lower pole. 3 mm nonobstructing calculus in the mid kidney. No hydronephrosis. Left kidney: Normal. Fluid-filled dilatation of the stomach from ingested material. Normal small intestine. Normal colon. The appendix is not visualized. It may be postsurgically absent. Normal abdominal aorta. Normal inferior vena cava. Normal retroperitoneum. Mild haziness of the mesenteric fat is unchanged. Mild thickening of the urinary bladder wall is unchanged. The prostate gland is not enlarged. Normal abdominal wall. Normal osseous structures. CT/Abdomen/Pelvis without Cont IMPRESSION: 1. Decrease volume of ascites overlying the surface of the cirrhotic liver. 2. Small hypodense cysts in the left hepatic lobe are unchanged. 3. Contracted gallbladder contains 2.3 cm gallstone. 4. 5 mm nonobstructing calculus in the right lower renal pole, another 2 mm nonobstructing calculus in the right lower renal pole and 3 mm nonobstructing calculus in the right kidney. These are unchanged. 5. Nonvisualization of the appendix but no secondary signs of acute appendicitis. The appendix may be postsurgically absent. 6. Mild haziness of the mesenteric fat is unchanged. 7. Chronic mild thickening of the urinary bladder wall is unchanged. 8. Improvement of the partial atelectases and there bronchograms in the left lower lobe. This is replaced with curvilinear subsegmental atelectases in the left lung base. 9. New partial atelectases in the right posterior lung base with air bronchograms. Electronically Signed: Arvin Vallecillo MD at 15:03 EST , Service support ,
--- NOTE | 2020-04-01 13:51 | EKG12_ITS ---
Test Reason : WEAKNESS Blood Pressure : / mmHG Vent. Rate : 069 BPM Atrial Rate : 069 BPM P-R Int : 238 ms QRS Dur : 138 ms QT Int : 410 ms P-R-T Axes : 074 067 033 degrees QTc Int : 439 ms Sinus rhythm with 1st degree A-V block Non-specific intra-ventricular conduction block Abnormal ECG Confirmed by FOREST MURRY, BANG ([id number]), compounding assistant AZIZA MCCLELLAN ([id number]) on 04/05/2020 12:32:35 P M Referred By: CL Confirmed By:JORGE GARG MD
[2020-04-01] MEDS: 0.9% Normal Saline 1,000 ML 1000 ML IV (14:07)
[2020-04-01 14:12] LABS: Absolute Lymphocyte Count 1.04 X10^3/uL (0.83-4.51); Absolute Neutrophil Count 19.9 X10^3/uL (2.0-7.7); Basophil# 0.04 X10^3/uL; Basophil% 0.2 % (0-1); Eosinophil# 0.07 X10^3/uL; Eosinophils% 0.3 % (0-5); Hematocrit 25.6 % (40-54); Hemoglobin 9.1 g/dL (13.0-16.5); Lymphocyte # 1.04 X10^3/ul (4.0); Lymphocyte % 4.5 % (19-41); Mean Corp Hgb Conc 35.5 g/dL (32-36); Mean Corpuscular Hgb 32.4 pg (27.0-32.0); Mean Corpuscular Volume 91.1 fL (80-94); Mean Platelet Vol. 11.6 fl (6.2-12.0); Monocyte# 1.64 X10^3/uL; NRBC Flagged by Analyzer 0 % (0-5); Neutrophil # 19.89 X10^3/uL (2.7-7.7); Neutrophil % 85.1 % (47-70); POSITIVE COUNT YES; POSITIVE DIFFERENTIAL YES; Platelet Count 74 K/mm3 (150-450); RBC Distribution Width CV 16.8 % (11.6-14.6); RBC Distribution Width SD 55.3 fl (35.1-43.9); Red Blood Count 2.81 M/mm3 (4.6-6.2); White Blood Count 23.4 K/mm3 (4.4-11.0)
[2020-04-01 14:13] LABS: Differential Indicated SCAN CRITERIA MET
[2020-04-01 14:32] LABS: Platelet Estimate MOD DEC (ADEQ)
[2020-04-01 14:41] LABS: ALB/GLOB Ratio 0.5 RATIO (0.9-2.4); AST(SGOT) 68 U/L (15-37); Alanine Aminotransfer ALT/SGPT 44 U/L (16-61); Albumin, Serum 1.9 g/dL (3.2-5.0); Alkaline Phosphatase 159 U/L (45-117); Anion Gap 12 (5-15); BUN 150 mg/dL (7-18); BUN/Creat Ratio 33.7 RATIO (10-20); Calcium,Total 9.1 mg/dL (8.5-10.1); Chloride 85 mmol/L (98-107); Creatinine, Serum 4.45 mg/dL (0.70-1.30); EST Glomerular Filtration Rate 15 mL/min (>60); Est Glom Filt Rate - Afr Amer 18 mL/min (>60); Estimated Creatinine Clearance 19.98 ml/min; Globulin 3.7 g/dL (2.2-4.2); Glucose 64 mg/dL (74-106); Lactic Acid 2.3 mmol/L (0.4-1.9); Lipase 756 U/L (73-393); Potassium 6.7 mmol/L (3.5-5.1); Protein, Total 5.6 g/dL (6.4-8.2); Sodium Level 113 mmol/L (136-145)
--- NOTE | 2020-04-01 15:34 | CASEMGMT ---
This RN CM met with pt [id number] at bedside during and post ED physician visit. Pt states he recognizes this RN CM but was unable to remember a name. This is a change from pt's baseline. 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 Explained to patient that per the physician, his electrolyte abnormalities are causing his vision difficulties. Recalled to patient conversation this RN CM had with him during his previous visit regarding his liver causing other organ failures including his kidneys and attempts to correct abnormalities will not be permanent as his liver failure will cause him to re-experience the same difficulties. Pt states don't lecture me, I'm not in the mood right now. Pt did state that he had a fall at home and hit his chest the other day but states his laundry prevented him from breaking my jaw. Pt states his Pleurx catheter has not been leaking as much. Hospice has continued to come out to assist him including now assisting him with his laundry. Call received from the [facility] Cristine Pereira who relayed that the patient is not safe in his home and that the patient's philosophical beliefs are not consistent with hospice. [facility] will not be able to accept him back unless the pt changes his thought process in regard to . Home health was recommended if deemed appropriate. [facility] would be willing to take him back if he is a DNR and would be willing to accept him into their inpatient unit. Cristine relayed conversations that were had with patient regarding and patient statement that he had taken a oath called a Will to Live that he would never allow himself to be killed and will fight until his last breath. He has adamantly refused to be a DNR. Cristine has also spoken with him in regard to HPOA and living will documents. Pt has two friends (a couple) and he had chosen the Kaleigh to be his HPOA. She declined to be listed as the pt's HPOA due to concerns regarding pt's to whom he is still legally although estranged. Pt is aware that his remains his next of kin for decision making per [place] law if he is unable to make decisions for himself. He was upset by this information. Cristine has also assisted pt with completing applications for food stamps. Pt does have a 16yo son. Pt reported to Cristine that his son and stopped by unannounced for a visit last Sunday. Pt did not provide any additional details regarding this visit. This RN CM also spoke with subcontracts manager Maida who stated the pt's home is unkept and pt was not answering the door when they visited. The pt gave permission to his landlord to let them in for visits. Pt declined personal care from a personal property assessor but was allowing them to do his laundry. Pt with eyes closed and not conversing further. Per discussion with ED physician, pt is being transferred to for continued care per pt's wishes to be a full code although continues to decline to be evaluated for a transplant. Did ask pt if he would like anyone notified of his transfer and he asked that his friend Kaleigh be notified. This RN CM will contact Kaleigh. Jeison Bolton RN CM
[2020-04-01 15:57] LABS: Ammonia < 10.0 umol/L (11-32)
--- NOTE | 2020-04-01 16:54 | CASEMGMT ---
Per pt's request, this RN CM contacted pt's friend Kaleigh and notified her of pt's pending transfer to . Jeison Bolton RN CM
[2020-04-01] MEDS: Sodium Polystyrene Sulfonate 15 GM/60 ML UDC 30 GM PO ×2 (16:55→20:51)
[2020-04-01] MEDS: Calcium Gluconate 1 GM/10 ML Vial IV (16:56)
[2020-04-01] MEDS: Sodium Bicarbonate 8.4% 50 ML Syringe 50 MEQ IV ×2 (16:56→20:52)
[2020-04-01 18:06] LABS: Reflex Lactate? Y
[2020-04-01 18:11] LABS: Anion Gap 11 (5-15); BUN 148 mg/dL (7-18); BUN/Creat Ratio 35.2 RATIO (10-20); Calcium,Total 8.7 mg/dL (8.5-10.1); Chloride 88 mmol/L (98-107); EST Glomerular Filtration Rate 16 mL/min (>60); Est Glom Filt Rate - Afr Amer 19 mL/min (>60); Estimated Creatinine Clearance 21.17 ml/min; Glucose 62 mg/dL (74-106); Sodium Level 117 mmol/L (136-145)
[2020-04-01] MEDS: Midodrine HCl 5 MG Tablet 10 MG PO (18:26)
--- NOTE | 2020-04-01 18:27 | HP.PCM_ITS ---
Problem List (1) Chronic anemia Status: Chronic (2) HTN (hypertension) Status: Chronic (3) Alcoholism Status: Chronic (4) Alcoholic cirrhosis Status: Chronic Qualifiers: Ascites presence: with ascites Qualified Code(s): K70.31 - Alcoholic cirrhosis of liver with ascites (5) Anasarca Status: Chronic (6) Ascites Status: Chronic Qualifiers: Ascites type: due to alcoholic cirrhosis Qualified Code(s): K70.31 - Alcoholic cirrhosis of liver with ascites (7) Hyponatremia Status: Chronic (8) PETER (acute kidney injury) Status: Acute (9) Anemia Status: Chronic History of Present Illness Date of Admission: 04/01/20 Chief Complaint: Hypotensive, blurry vision, severe hyponatremia and hyperkalemia The patient is a 54 year old M with history of decompensated alcoholic cirrhosis and recurrent admission, last one between 03/19 to 03/24/2020 for severe sepsis suspected secondary to SBP came back to ER when he had a blurry vision, decreased mobility and need to call hospice to move around his house. Patient further said he fell down about 2 nights ago when he rammed into the door and fell into the basket on his chest but denies any major injury. Patient was in hospice service but he revoked therefore was sent to ED. In ED, patient was found hypotensive, blood pressure 80/35 which improved after 1 L of IV fluids, 91/30. Patient baseline blood pressure is in systolic 90s secondary to vasodilatory hemodynamics of cirrhosis. No hypoxia or tachypnea. Lab shows leukocytosis, 23.4 thousand with left shift, serum sodium 113, K6.7, bicarb 16, anion gap 12, BUN 150, creatinine 2.45, lactic acid 2.3. Liver chemistry shows albumin 1.9, ALT 44, AST 68, total bilirubin 6.1. Lipase 656. Patient was given cocktail treatment for hyperkalemia along with Kayexalate and repeat potassium improved to 6.0. Patient also complained of diffuse abdominal pain. Denies any fever or chills. EKG sinus rhythm with first-degree AV block at 69 bpm, QTC [address] head shows normal enhanced brain. CT abdomen without contrast shows decreased volume of ascites as patient has peritoneal catheter. Improvement in partial atelectasis and bronchogram left lower lobe. Contracted GB contains 2.3 gallstone which is chronic finding similar on previous CT scan. As patient revoked hospice service and is full code and wanted definitive treatment for decompensated alcoholic cirrhosis and complication, recurrent ad mission, ER physician called for transfer and patient is accepted but will keep in ICU for interim management. Past Medical History Past Medical History (Chronic Problems): Chronic Problems (Last Reviewed 03/12/20 @ 12:54 by Annette Santo) Chronic anemia (Chronic) HTN (hypertension) (Chronic) Alcoholism (Chronic) Alcoholic cirrhosis (Chronic) Anasarca (Chronic) Ascites (Chronic) Hyponatremia (Chronic) Anemia (Chronic) Medical History: Medical History (Last Reviewed 03/12/20 @ 12:54 by Annette Santo) HTN (hypertension) (Chronic) I10 Alcoholism (Chronic) F10.20 Alcoholic cirrhosis (Chronic) K70.30 Anasarca (Chronic) R60.1 Ascites (Chronic) R18.8 Hyponatremia (Chronic) E87.1 PETER (acute kidney injury) (Acute) N17.9 Anemia (Chronic) D64.9 Abscess (Resolved) L02.91 Bacteremia (Resolved) R78.81 Allergies lisinopril Allergy (Verified 04/01/20 13:26) PT UNSURE OF REACTION acetaminophen [From Tylenol] Adverse Reaction (Verified 04/01/20 13:26) LIVER ISSUES codeine Adverse Reaction (Verified 04/01/20 13:26) Nausea diphenhydramine [From Benadryl] Adverse Reaction (Verified 04/01/20 13:26) passed out Given with blood transfusion and pt states he passed out afterwards hydrocodone [From Vicodin] Adverse Reaction (Verified 04/01/20 13:26) Itching Home Medications: Ambulatory Orders Medication Instructions Recorded Spironolactone 50 mg PO DAILY 02/11/20 Furosemide [Lasix] 40 mg PO DAILY 03/04/20 Folic Acid 1 mg PO DAILY@0800 03/19/20 Doxycycline 100 mg PO BID #6 cap 03/24/20 Midodrine HCl [Proamatine] 10 mg PO TID #60 tab 03/24/20 Ammonium Lactate [Skin Treatment] 1 applic TP DAILY PRN PRN 04/01/20 Guaifenesin [Cough Syrup] 5 ml PO Q4H PRN PRN 04/01/20 Lactulose 15 ml PO BID 04/01/20 Oxycodone HCl 5 mg PO Q6H PRN 04/01/20 Promethazine HCl 25 mg PO Q6H PRN PRN 04/01/20 Surgical History: Surgical History (Last Updated 03/12/20 @ 12:56 by Annette Santo) Chloé bocanegra Onset Date: ~03/05/20 History of hernia repair Z98.890, Z87.19 Surgical History: - - Inguinal and umbilical hernia repair, colonoscopy, Psychiatric History: Anxiety Lives: Alone Smoking Status: Current every day smoker Tobacco Use: Cigarettes Alcohol: Sober Drugs: None - *Family History Maternal History Items: Cancer - colon, Hypertension, Stroke Paternal History Items: Heart Disease, Hypertension Review of Systems Constitutional: Reports: Anorexia, Malaise, Weakness, Fatigue. Denies: Chills, Fever HEENT: Denies: Head Aches, Sinus Congestion, Sinus Drainage Cardiovascular: Reports: Chest Pain - Had mild chest pain after fall but has resolved now., - Respiratory: Denies: Cough, Shortness of breath at rest, Sputum production Gastrointestinal: Reports: Abdominal Pain, Nausea. Denies: Diarrhea, Hematemesis, Hematochezia, Melena, Vomiting Genitourinary: Denies: Dysuria Musculoskeletal: Reports: Back Pain, Joint Pain Skin: Reports: Dryness, Jaundice Neurological: Reports: Balance problems, Incoordination Psychiatric: Reports: Anxiety, Depression Hematologic/ Lymphatic: Reports: Anemia, Easy Bruising, Easy Bleeding Unable to obtain accurate/complete ROS d/t: Mild drowsy/hepatic encephalopathy VTE Information - Inpt Only VTE Present on Admission: No VTE Mechan Device Prophylaxis: SCD's VTE Pharm Prophylaxis ordered?: No Reason prophylaxis not ordered:: Treatment Not Indicated - Severe anemia, thrombocytopenia, decompensated cirrhosis Patient Problems: Active and Suspected Problems (Last Reviewed 03/12/20 @ 12:54 by Annette Santo) PETER (acute kidney injury) (Acute) Objective: Physical exam General: Awake, oriented x2, Cooperative although mild lethargic and sometimes drowsy HEENT: Icterus present. Pallor 2+. Atraumatic, PERRLA, EOMI, Normocephalic Oral: Oral mucosa dry. No Gingival or Mucosal Lesions/ Ulcerations Neck: Supple, No JVD, Negative Carotid Bruits Lungs: Air entry diminished in bilateral lung bases. No crepitation/rhonchi Cardiovascular: Regular rate, Regular Rhythm, Normal S1, Normal S2, No murmurs Abdomen: Diffuse tenderness present mainly on right lower quadrant. Peritoneal catheter present. 300 mill ascites fluid in peritoneal bag. Bowel Sounds Present, Soft. : No renal angle tenderness. No suprapubic tenderness. Extremities: Mild bilateral lower leg edema, Capillary Refill Less than 3 Seconds Skin: Skin is dry. Mild bruise in the upper extremities. Musculoskeletal: No Tenderness to Palpation of Joints or Extremities Neurological: Nonspecific nonfocal exam, generalized drowsiness and lethargy. Cranial nerves II-XII grossly intact, Deep Tendon Reflexes 2+/4 Psych/Mental Status: Flat affect. - Physical Exam Vitals/I&O's: Vital Signs Temp Pulse Resp BP Pulse Ox 97.4 F L 80 12 94/61 98 04/01/20 13:23 04/01/20 17:19 04/01/20 17:19 04/01/20 17:19 04/01/20 17:19 Oxygen Delivery Method Room Air Weight: 210 lb 8.663 oz Body Mass Index (BMI) 29.3 Intake and Output for Last 24 Hours 03/30/20 03/31/20 04/01/20 23:59 23:59 23:59 Intake Total 1050 / 1050 Balance 1050 / 1050 Microbiology Past 72 Hours 04/01/20 17:00 Mucosa - Nose SARS-CoV-2 Antigen (Rapid) - Final Laboratory Results 04/01/20 14:00: WBC 23.4 H, RBC 2.81 L, Hgb 9.1 L, Hct 25.6 L, MCV 91.1, MCH 32.4 H, MCHC 35.5, RDW Std Deviation 55.3 H, RDW Coeff of Pravin 16.8 H, Plt Count 74 L, MPV 11.6, Immature Gran % (Auto) 2.900 H, Neut % (Auto) 85.1 H, Lymph % (Auto) 4.5 L, [place] % (Auto) 7.0, Eos % (Auto) 0.3, Baso % (Auto) 0.2, Absolute Neuts (auto) 19.9 H, Absolute Lymphs (auto) 1.04, Nucleated RBC % 0, Differential Comment COMMENT, Diff Path Review June, Platelet Estimate MOD 04/01/20 14:00: Sodium 113 L*, Potassium 6.7 H*, Chloride 85 L, Carbon Dioxide 16.0 L, Anion Gap 12, BUN 150 H*, Creatinine 4.45 H, Estim Creat Clear Calc 19 .98, Est GFR (MDRD) Af Amer 18 L, Est GFR (MDRD) Non-Af 15 L, BUN/Creatinine Ratio 33.7 H, Glucose 64 L, Calcium 9.1, Total Bilirubin 6.10 H, AST 68 H, ALT 44, Alkaline Phosphatase 159 H, Total Protein 5.6 L, Albumin 1.9 L, Globulin 3.7, Albumin/Globulin Ratio 0.5 L, Lipase 756 H 04/01/20 14:00: Lactic Acid 2.3 H* 04/01/20 15:17: Ammonia < 10.0 L 04/01/20 17:20: Sodium 117 L*, Potassium 6.0 H*, Chloride 88 L, Carbon Dioxide 18.0 L, Anion Gap 11, BUN 148 H*, Creatinine 4.20 H, Estim Creat Clear Calc 21.17, Est GFR (MDRD) Af Amer 19 L, Est GFR (MDRD) Non-Af 16 L, BUN/Creatinine Ratio 35.2 H, Glucose 62 L, Calcium 8.7 04/01/20 17:20: Lactate Dehydrogenase Pending 04/01/20 17:20: PT Pending, INR Pending 04/01/20 18:05: Fluid Glucose Pending, Fluid Total Protein Pending, Fluid LDH Pending 04/01/20 18:05: Fluid pH Pending, Fluid Amylase Pending Current Medications Albumin Human () 25 gm in 100 mls @ 60 mls/hr IV X1 ONE Stop: 04/01/20 19:30 Midodrine (Midodrine Hcl 5 Mg Tablet) 10 mg PO TID BELLA Sodium Chloride (0.9% Saline Lock 10 Ml Syringe) 10 - 40 ml IV UD PRN PRN Reason: SALINE FLUSH Assessment/Plan All Active Problems (Last Reviewed 03/12/20 @ 12:54 by Annette Santo) PETER (acute kidney injury) (Acute) Abscess (Resolved) Bacteremia (Resolved) The patient is a 54 year old M with history of decompensated alcoholic cirrhosis and recurrent admission, last one between 03/19 to 03/24/2020 for severe sepsis suspected secondary to SBP came back to ER when he had a blurry vision, decreased mobility and need to call hospice to move around his house. His diagnosis is consistent with severe sepsis, acute kidney injury on CKD and decompensated cirrhosis with severe hyponatremia. Patient is accepted for ICU 1. Severe sepsis (tachycardia, leukocytosis with left shift, lactic acidosis )suspected secondary to SBP/possible hepatobiliary sepsis: Meld sodium score is 37 which is estimated 65 to 66% 90-day mortality. With that, patient is accepted in but is being admitted in ICU for interim stabilization. Start patient on IV Zosyn and continue oral doxycycline. During previous peritoneal fluid culture grew MRSA. Patient blood pressure has improved with 1 and half liter of IV fluid normal saline bolus. Patient is not candidate for strict follow-up for severe sepsis guideline as patient low baseline blood pressure and prevent acute rise in serum sodium. Sepsis work-up with blood cultures x2, peritoneal fluid cell count, chemistry, SAAG, culture. During previous hospital ization, blood culture and urine cultures were negative. Rapid SARS-CoV-2 antigen negative. patient had intra-abdominal Peritoneal catheter placed 03/05/2020 for uncontrolled ascites related to alcoholic cirrhosis. 2. Decompensated cirrhosis with severe hyponatremia: Serum sodium 113, improved to 117 therefore we will keep the sodium monitoring every 4 hours. Try to keep sodium within 6 to 8 mEq in 24 hours. Patient has thrombocytopenia, jaundice, total bilirubin 6.7, splenic hilum varices and history of variceal bleed. INR is pending. 3. chronic normocytic anemia-: H&H 9.1/25.6, better than previous hemoglobin of 6.4/18.3. Monitor CBC daily. 4. Acute kidney injury with hyperkalemia with metabolic acidosis on CKD stage III probably from HRS: Acute kidney injury probably from SBP or severe sepsis/prerenal from hypotension. Patient had 1 dose 30 g Kayexalate and hyperkalemia cocktail in ED and potassium improved to 6.0. Will order 1 more Kayexalate. Monitor BMP every 4 hourly. BUN is 148. 5. Severe hyponatremia, exact etiology unclear: Denies vomiting or GI fluid loss. Denies GI bleed. Patient has gradually worsening hyponatremia related to decompensated cirrhosis and hypervolemia. Rest as mentioned above 6. Thrombocytopenia, coagulopathy-secondary to decompensated cirrhosis 7. Chronic alcohol dependence-patient states he quit drinking May 2019. 8. Tobacco dependence-encouraged cessation. 9. Anxiety with panic attacks-recommended outpatient follow-up. 10. Currently hypotensive: On midodrine 10 mg daily. DVT prophylaxis-SCDs. Pharmacological prophylaxis contraindicated. Living will/advanced directive/end of life care: Patient does not have living will or advanced directive. After discussion of benefits/risks procedures involved with full code, DNR CC arrest and DNR CC, the patient revoked hospice care and wants full code. Patient does want artificial life support including intubation, tube feed, ventilator and/chest compression, central venous catheter, vasopressor and DC shock if needed Total time spent in [id number] encounter in discussion of advanced directive 16 minutes. Inpatient E&M: 71110 Init Hosp L3 Procedures: 17436 Advncd Care Plan 30 Min
[2020-04-01 18:50] LABS: LDH 109 U/L (87-241)
[2020-04-01 18:58] LABS: International Normalized Ratio 2.1; Prothrombin Time (Protime)PT. 23.3 SECONDS (11.7-14.9)
[2020-04-01 19:07] LABS: Glucose, Body Fluid 34 mg/dL (40-70); LDH,Body Fluid 477 Units/l (Not Establ.); Protein, Body Fluid 1.1 g/dL (Not Establ.)
[2020-04-01 19:11] LABS: Body Fluid Mononuclear WBC % 16.8 %; Body Fluid Polynuclear WBC % 83.2 %; Red Cell Count/Body Fluid 0.004 10^6/ul
[2020-04-01 19:43] LABS: Lactic Acid 3.2 mmol/L (0.4-1.9)
[2020-04-01 19:49] LABS: Magnesium 2.9 mg/dL (1.6-2.6)
[2020-04-01 19:54] LABS: Auto B Fluid Analyzer BKGD Ct COUNTS W/IN LIMITS (W/IN LIMITS); Color/Body Fluid YELLOW; Source- Body Fluid PLEURAL FLUID
[2020-04-01 19:55] LABS: Appearance/Body Fluid CLOUDY
[2020-04-01 19:57] LABS: Body Fluid QC Type(s) BF1Q
[2020-04-01 20:23] LABS: Monocytes 5 %; Neutrophil (Segs) 95 %
[2020-04-01] MEDS: 0.9% Normal Saline 1,000 ML 999 ML IV (20:40)
[2020-04-01] MEDS: Polyethylene Glycol 3350 17 GM PACKET 34 GM PO (20:50)
[2020-04-01] MEDS: Albumin Human 25% (100 mL) 25 GM/100 ML BAG IV (20:54)
[2020-04-01] MEDS: oxyCODONE 5 MG Tablet PO (21:24)
[2020-04-01] MEDS: 0.9% Normal Saline 1,000 ML 75 ML IV (21:39)
[2020-04-01 22:03] LABS: Anion Gap 10 (5-15); BUN 150 mg/dL (7-18); BUN/Creat Ratio 35.5 RATIO (10-20); Calcium,Total 8.7 mg/dL (8.5-10.1); Chloride 90 mmol/L (98-107); Creatinine, Serum 4.23 mg/dL (0.70-1.30); EST Glomerular Filtration Rate 16 mL/min (>60); Est Glom Filt Rate - Afr Amer 19 mL/min (>60); Estimated Creatinine Clearance 21.02 ml/min; Glucose 70 mg/dL (74-106); Potassium 6.5 mmol/L (3.5-5.1); Sodium Level 117 mmol/L (136-145)
[2020-04-01] MEDS: Doxycycline 100 MG CAPSULE PO (22:38)
[2020-04-01] MEDS: TITRATION PARAMETER CHANGE 1 EACH IV (22:38)
[2020-04-01] MEDS: Lactulose 20 GM/30 ML UDC 10 GM PO (22:38)
[2020-04-01 22:59] LABS: M R Staph aureus DNA By PCR Negative (Negative); Probe Check PASS; Specimen Processing Control PASS
[2020-04-01 23:12] LABS: Lactic Acid 3.4 mmol/L (0.4-1.9)
[2020-04-02] VITALS (58 sets, daily range): BP systolic 73–116; BP diastolic 29–58; PULSE 71–82; RESP 12–18; TEMP 36.6–37; O2SAT 92–98
--- NOTE | 2020-04-02 | CYSPIN_PTH ---
PATIENT: JACLYN JO LOC: ICU U#:[id number] AGE/SX: 54/M ROOM: [facility] RE04/01/[address]: Dr. Katiana Quiroga MD : [id number] BED: 1 DIS: 04/03/2020 SPEC #: [id number] RECD: 04/02/20 09:14 STATUS: PRICILA REYeni #: [id number] JAYMIE: 04/02/20 00:[address]: Katiana Quiroga DEPT: CYTOLOGY RECD BY: Aftab Brunner ENTERED: 04/02/20 09:14 SP TYPE: CYSPIN FL OTHR DR: MD Dr. Mayur Garza MD Dr. Derek Brown, DO Dr. Prakash Chand, MD Dr. William Lago, MD Tissues: Urine Procedures: Pap Stain (control) Special Stain Group II Cytospin Fluid HEADER OPERATION: Not noted PRE-OP DIAGNOSIS: Decompensated cirrhosis, hypotension, SBP TISSUE SUBMITTED: Urine for cytology DIAGNOSIS CYTOLOGY Urine for cytology (cytospin): Marked acute inflammation. Rare atypical urothelial cells, favor reactive. AM:jemal 04/05/2020 CYTOLOGY STUDY Slides are reviewed. CYTOLOGY GROSS Received is 20 ml of yellow cloudy fluid labeled with the patient's name and and designated per the requisition as urine. Submitted for cytology preparation. / jemal 04/02/2020 TC:2 CPT: 51582
[2020-04-02] MEDS: Dextrose 50%-Water 25 GM/50 ML DISP.SYRIN IV (00:34)
[2020-04-02] MEDS: 0.9% Saline Lock 10 ML Syringe IV ×3 (01:00→13:56)
[2020-04-02] MEDS: TITRATION PARAMETER CHANGE 1 EACH IV ×2 (01:14→19:00)
--- NOTE | 2020-04-02 01:46 | NURSING ---
0140- Dr. San is at bedside. He is explaining the procedure risks and benefits of placing the dialysis catheter. Consent is signed by patient and Dr. San. 0145- Right IJ area is prepped and ready to go. 0150- Right IJ catheter is in and sterile dressing is being placed. Pt tolerated procedure well. Chest x-ray is being ordered to confirm placement.
[2020-04-02] MEDS: Heparin 10,000 UNITS/10 ML Vial 3000 UNITS IV (01:50)
--- NOTE | 2020-04-02 02:05 | RAD_ITS ---
STUDY: X-RAY CHEST REASON FOR EXAM: Male, 54 years old. Status post central venous catheter placement TECHNIQUE: Single AP portable view of the chest. COMPARISON: 03/19/2020 FINDINGS: There has been interval placement of a right internal jugular central venous catheter with the tip projecting over the central superior vena cava. No confluent airspace infiltrate. No pleural effusion or pneumothorax. Normal size heart. Normal mediastinum and sanju. Normal visualized pulmonary arteries. Normal visualized aortic arch and descending thoracic aorta. Normal visualized thoracic spine. Normal visualized ribs, clavicles, and shoulders. There is no demonstrated abnormality of the visualized soft tissue structures of the upper abdomen. RAD/CXR for Line Placement IMPRESSION: 1. Appropriate positioning of supportive devices 2. No acute cardiopulmonary disease Electronically Signed: Aftab Zamora MD at 3:05 EST Tel , Service support ,
--- NOTE | 2020-04-02 02:05 | PCM.CONS.GEN ---
Problem List (1) PETER (acute kidney injury) Status: Acute Reason for Consult Date of Consultation: 04/02/20 History of Present Illness: The patient is a 54 year old M here with decompensated liver failure. The patient was previously in hospice care and I placed a peritoneal drainage catheter. The patient presented with confusion and acute kidney injury. I was consulted today for dialysis catheter placement. Past Medical History Past Medical History (Chronic Problems): Chronic Problems (Last Reviewed 03/12/20 @ 12:54 by Annette Santo) Chronic anemia (Chronic) HTN (hypertension) (Chronic) Alcoholism (Chronic) Alcoholic cirrhosis (Chronic) Anasarca (Chronic) Ascites (Chronic) Hyponatremia (Chronic) Anemia (Chronic) Medical History: Medical History (Last Reviewed 03/12/20 @ 12:54 by Annette Santo) HTN (hypertension) (Chronic) I10 Alcoholism (Chronic) F10.20 Alcoholic cirrhosis (Chronic) K70.30 Anasarca (Chronic) R60.1 Ascites (Chronic) R18.8 Hyponatremia (Chronic) E87.1 PETER (acute kidney injury) (Acute) N17.9 Anemia (Chronic) D64.9 Abscess (Resolved) L02.91 Bacteremia (Resolved) R78.81 Allergies lisinopril Allergy (Verified 04/01/20 13:26) PT UNSURE OF REACTION acetaminophen [From Tylenol] Adverse Reaction (Verified 04/01/20 13:26) LIVER ISSUES codeine Adverse Reaction (Verified 04/01/20 13:26) Nausea diphenhydramine [From Benadryl] Adverse Reaction (Verified 04/01/20 13:26) passed out Given with blood transfusion and pt states he passed out afterwards hydrocodone [From Vicodin] Adverse Reaction (Verified 04/01/20 13:26) Itching Home Medications: Ambulatory Orders Medication Instructions Recorded Spironolactone 50 mg PO DAILY 02/11/20 Furosemide [Lasix] 40 mg PO DAILY 03/04/20 Folic Acid 1 mg PO DAILY@0800 03/19/20 Doxycycline 100 mg PO BID #6 cap 03/24/20 Midodrine HCl [Proamatine] 10 mg PO TID #60 tab 03/24/20 Ammonium Lactate [Skin Treatment] 1 applic TP DAILY PRN PRN 04/01/20 Guaifenesin [Cough Syrup] 5 ml PO Q4H PRN PRN 04/01/20 Lactulose 15 ml PO BID 04/01/20 Oxycodone HCl 5 mg PO Q6H PRN 04/01/20 Promethazine HCl 25 mg PO Q6H PRN PRN 04/01/20 Surgical History: Surgical History (Last Updated 03/12/20 @ 12:56 by Annette Santo) Chloé nuñez cateter Onset Date: ~03/05/20 History of hernia repair Z98.890, Z87.19 Surgical History: - - Inguinal and umbilical hernia repair, colonoscopy, Psychiatric History: Anxiety Lives: Alone Smoking Status: Current every day smoker Tobacco Use: Cigarettes Alcohol: Sober Drugs: None - *Family History Maternal History Items: Cancer - colon, Hypertension, Stroke Paternal History Items: Heart Disease, Hypertension Review of Systems Constitutional: Denies: Anorexia, Fever Respiratory: Reports: Cough Gastrointestinal: Reports: Abdominal Pain. Denies: Nausea, Vomiting Skin: Reports: Jaundice Patient Problems: Active and Suspected Problems (Last Reviewed 03/12/20 @ 12:54 by Annette Santo) PETER (acute kidney injury) (Acute) - Physical Exam Vitals/I&O's: Vital Signs Temp Pulse Resp BP Pulse Ox 98.1 F 74 16 85/36 L 96 04/02/20 00:00 04/02/20 01:00 04/02/20 01:00 04/02/20 01:45 04/02/20 01:00 Oxygen Delivery Method Room Air Weight: 203 lb Body Mass Index (BMI) 28.3 Intake and Output for Last 24 Hours 03/31/20 04/01/20 04/02/20 23:59 23:59 23:59 Intake Total 2414.45 / 2516.33 174.42 / 174.42 Output Total 0 / 0 Balance 2414.45 / 2516.33 174.42 / 174.42 General: Cooperative HEENT: Atraumatic Lungs: Normal air movement Abdomen: Soft, Non Tender, Non-Distended Musculoskeletal: No Muscle Wasting Psych/Mental Status: Normal Affect Microbiology Past 72 Hours 04/01/20 17:00 Mucosa - Nose SARS-CoV-2 Antigen (Rapid) - Final Laboratory Results 04/01/20 14:00: WBC 23.4 H, RBC 2.81 L, Hgb 9.1 L, Hct 25.6 L, MCV 91.1, MCH 32.4 H, MCHC 35.5, RDW Std Deviation 55.3 H, RDW Coeff of Pravin 16.8 H, Plt Count 74 L, MPV 11.6, Immature Gran % (Auto) 2.900 H, Neut % (Auto) 85.1 H, Lymph % (Auto) 4.5 L, [place] % (Auto) 7.0, Eos % (Auto) 0.3, Baso % (Auto) 0.2, Absolute Neuts (auto) 19.9 H, Absolute Lymphs (auto) 1.04, Nucleated RBC % 0, Differential Comment COMMENT, Diff Path Review June, Platelet Estimate MOD 04/01/20 14:00: Sodium 113 L*, Potassium 6.7 H*, Chloride 85 L, Carbon Dioxide 16.0 L, Anion Gap 12, BUN 150 H*, Creatinine 4.45 H, Estim Creat Clear Calc 19.98, Est GFR (MDRD) Af Amer 18 L, Est GFR (MDRD) Non-Af 15 L, BUN/Creatinine Ratio 33.7 H, Glucose 64 L, Calcium 9.1, Total Bilirubin 6.10 H, AST 68 H, ALT 44, Alkaline Phosphatase 159 H, Total Protein 5.6 L, Albumin 1.9 L, Globulin 3.7, Albumin/Globulin Ratio 0.5 L, Lipase 756 H 04/01/20 14:00: Lactic Acid 2.3 H* 04/01/20 15:17: Ammonia < 10.0 L 04/01/20 17:20: Sodium 117 L*, Potassium 6.0 H*, Chloride 88 L, Carbon Dioxide 18.0 L, Anion Gap 11, BUN 148 H*, Creatinine 4.20 H, Estim Creat Clear Calc 21.17, Est GFR (MDRD) Af Amer 19 L, Est GFR (MDRD) Non-Af 16 L, BUN/Creatinine Ratio 35.2 H, Glucose 62 L, Calcium 8.7 04/01/20 17:20: Lactate Dehydrogenase 109 04/01/20 17:20: Magnesium 2.9 H 04/01/20 18:05: Fluid Glucose 34 L*, Fluid Total Protein 1.1, Fluid LDH 477 04/01/20 18:05: Fluid pH Pending, Fluid Amylase Pending 04/01/20 18:18: Fluid Source PLEURAL FLUID, Fluid Color YELLOW, Fluid Appearance CLOUDY, Fluid WBC 20.442, Fluid RBC 0.004, Fluid Tot Cell Count 20.517, Fld Polynuclear WBCs # 19.275, Fld Polynuclear WBCs % 83.2, Fluid Mononuclear WBCs 3.890, Fld Mononuclear WBCs % 16.8, Fluid Neutrophils 95, Fluid Monocytes 5, Fl Pathologist Comment May follow, Fluid Comment 2 SEE COMMENT 04/01/20 18:33: PT 23.3 H, INR 2.1 04/01/20 18:33: Lactic Acid 3.2 H* 04/01/20 21:00: Sodium 117 L*, Potassium 6.5 H*, Chloride 90 L, Carbon Dioxide 17.0 L, Anion Gap 10, BUN 150 H*, Creatinine 4.23 H, Estim Creat Clear Calc 21.02, Est GFR (MDRD) Af Amer 19 L, Est GFR (MDRD) Non-Af 16 L, BUN/Creatinine Ratio 35.5 H, Glucose 70 L, Calcium 8.7 04/01/20 21:10: MRSA (PCR) Negative 04/01/20 22:30: Lactic Acid 3.4 H* 04/02/20 01:15: Blood Type O POSITIVE Current Medications Acetaminophen (Acetaminophen 325 Mg Tablet) 650 mg PO Q6H PRN PRN PRN Reason: Pain Score 1-10/Temp > 100.7 F Doxycycline Monohydrate (Doxycycline 100 Mg Capsule) 100 mg PO BID [facility] Last Admin: 04/01/20 22:38 Dose: 100 mg Documented by: Folic Acid (Folic Acid 1 Mg Tablet) 1 mg PO DAILY@0800 [facility] Hydromorphone HCl (Hydromorphone 0.5 Mg/0.5 Ml Syringe) 0.5 mg IV Q4H PRN PRN PRN Reason: Pain Score 6-10 Sodium Chloride () 1,000 mls @ 75 mls/hr IV .[id number] [facility] Last Admin: 04/01/20 21:39 Dose: 75 mls/hr Documented by: Piperacillin Sod/Tazobactam (Sod 3.375 gm/ Sodium Chloride) 50 mls @ 12.5 mls/hr IV Q8 [facility] Last Infusion: 04/02/20 00:51 Dose: Infused Documented by: Norepinephrine Bitartrate 8 mg (/ Sodium Chloride) 250 mls @ 9.375 mls/hr CONT INF .[id number] [facility]; Protocol Last Titration: 04/02/20 01:45 Dose: 9 mcg/min, 16.9 mls/hr Documented by: Lactulose (Lactulose 20 Gm/30 Ml Udc) 10 gm PO BID [facility] Last Admin: 04/01/20 22:38 Dose: 10 gm Documented by: Midodrine (Midodrine Hcl 5 Mg Tablet) 10 mg PO TID@0800,1200,1700 [facility] Nitroglycerin (Nitroglycerin (Inpatient Use) 0.4 Mg Tab.Subl) 0.4 mg SUBLINGUAL Q5M PRN PRN Reason: CARDIAC/CHEST PAIN Oxycodone HCl (Oxycodone 5 Mg Tablet) 5 mg PO Q4H PRN PRN PRN Reason: Pain Score 4-5 Last Admin: 04/01/20 21:24 Dose: 5 mg Documented by: Prochlorperazine Edisylate (Prochlorperazine 10 Mg/2 Ml Vial) 5 mg IV Q4H PRN PRN PRN Reason: Breakthrough Nausea/Vomiting Senna/Docusate Sodium (Senna/Docusate Sodium 1 Tablet) 2 tablet PO BID PRN PRN Reason: Constipation Sodium Chloride (0.9% Saline Lock 10 Ml Syringe) 10 - 40 ml IV UD PRN PRN Reason: SALINE FLUSH Assessment/Plan All Active Problems (Last Reviewed 03/12/20 @ 12:54 by Annette Santo) PETER (acute kidney injury) (Acute) Abscess (Resolved) Bacteremia (Resolved) 54-year-old male with acute kidney injury and decompensated cirrhosis 1. I reviewed the CT scan and there is no ascites currently. The patient still has his catheter in place but it is severely dislodged and the cuff that is normal and the skin is at least 8 inches out of the abdomen. There is cloudy yellow fluid draining from this catheter. Culture is pending. 2. The patient was in hospice care and now revoked his hospice and would like full treatment. I was consulted for dialysis catheter placement. I discussed right IJ dialysis catheter placement with the patient as well as the risks including not limited to bleeding, infection, pneumothorax, line infection or DVT. The patient understand the risks and wanted to proceed. I did place a right IJ temporary dialysis catheter at the bedside. Chest x-ray is pending. Todd San MD Pager: [facility] [address] [place] [address] [address] [place] [phone] Office:
--- NOTE | 2020-04-02 02:08 | PCM.OPRPT ---
Problem List (1) PETER (acute kidney injury) Status: Acute Report of Operation Date of Procedure: 04/02/20 Pre-Operative Diagnosis: Acute kidney injury and need for dialysis access Post-Operative Diagnosis: Same Surgery/Procedure Performed:: Ultrasound-guided placement of right temporary dialysis catheter utilizing right IJ Description of Procedure: Patient was consented for procedure in the right neck was prepped and draped in usual sterile fashion. Using ultrasound the right IJ was localized and the skin overlying the IJ was injected with local anesthetic. A small josette was made with a scalpel. Under ultrasound guidance a needle was placed into the right IJ and after aspiration a guidewire was placed into the right IJ with no resistance. The needle was removed and serial dilators were placed over the guidewire. Next the catheter was placed over the guidewire and into the right IJ and the guidewire was removed. Both of the catheters monica easily and flushed easily. They were both clamped and the catheter was sutured into place using 3-0 nylon suture. Next each catheter was instilled with 1.5 cc of heparinized saline and each of them were clamped and capped. Dressing was applied. Patient tolerated the procedure well and chest x-ray is pending. Grafts/Implants Used: 16 cm Murhurkar dialysis catheter
[2020-04-02 02:30] LABS: Absolute Lymphocyte Count 1.06 X10^3/uL (0.83-4.51); Absolute Neutrophil Count 13.8 X10^3/uL (2.0-7.7); Basophil# 0.02 X10^3/uL; Basophil% 0.1 % (0-1); Eosinophil# 0.11 X10^3/uL; Eosinophils% 0.7 % (0-5); Hematocrit 19.7 % (40-54); Hemoglobin 6.9 g/dL (13.0-16.5); Lymphocyte # 1.06 X10^3/ul (4.0); Lymphocyte % 6.3 % (19-41); Mean Corpuscular Hgb 31.8 pg (27.0-32.0); Mean Corpuscular Volume 90.8 fL (80-94); Monocyte# 1.53 X10^3/uL; Monocyte% 9.1 % (0-10); NRBC Flagged by Analyzer 0 % (0-5); Neutrophil # 13.75 X10^3/uL (2.7-7.7); Neutrophil % 81.8 % (47-70); POSITIVE COUNT YES; POSITIVE DIFFERENTIAL YES; Platelet Count 56 K/mm3 (150-450); RBC Distribution Width CV 16.6 % (11.6-14.6); RBC Distribution Width SD 55.4 fl (35.1-43.9); Red Blood Count 2.17 M/mm3 (4.6-6.2); White Blood Count 16.8 K/mm3 (4.4-11.0)
[2020-04-02 02:31] LABS: Differential Indicated SCAN CRITERIA MET
[2020-04-02 02:40] LABS: Reflex Lactate? Y
[2020-04-02 02:57] LABS: ALB/GLOB Ratio 0.6 RATIO (0.9-2.4); AST(SGOT) 51 U/L (15-37); Alanine Aminotransfer ALT/SGPT 34 U/L (16-61); Albumin, Serum 1.8 g/dL (3.2-5.0); Alkaline Phosphatase 116 U/L (45-117); Anion Gap 11 (5-15); BUN 149 mg/dL (7-18); BUN/Creat Ratio 36.3 RATIO (10-20); Calcium,Total 8.3 mg/dL (8.5-10.1); Chloride 92 mmol/L (98-107); Creatinine, Serum 4.11 mg/dL (0.70-1.30); EST Glomerular Filtration Rate 16 mL/min (>60); Est Glom Filt Rate - Afr Amer 20 mL/min (>60); Estimated Creatinine Clearance 21.63 ml/min; Globulin 2.9 g/dL (2.2-4.2); Glucose 63 mg/dL (74-106); Magnesium 2.8 mg/dL (1.6-2.6); Potassium 5.7 mmol/L (3.5-5.1); Protein, Total 4.7 g/dL (6.4-8.2); Sodium Level 119 mmol/L (136-145)
[2020-04-02 03:31] LABS: Bedside Glucose 138 mg/dL (70-110)
[2020-04-02 03:31] LABS: Bedside Glucose 60 mg/dL (70-110)
[2020-04-02 03:31] LABS: Bedside Glucose 77 mg/dL (70-110)
[2020-04-02 05:31] LABS: Bedside Glucose 91 mg/dL (70-110)
--- NOTE | 2020-04-02 06:49 | CON.PCM_ITS ---
Reason for Consult Date of Consultation: 04/02/20 Reason for Consultation: Hypovolemic shock History of Present Illness: The patient is a 54-year-old male, with a history as outlined below, who presented to the emergency department on April 01 with complaints of generalized weakness and vision changes. The patient does have a known history of alcohol-related cirrhosis. The patient was just admitted to the hospital March 19 through March 24 with severe sepsis secondary to suspected SBP. His hospital course was complicated by hepatic encephalopathy, acute kidney injury, hyperkalemia, hyponatremia and thrombocytopenia. The patient previously required frequent paracenteses and therefore underwent an ultrasound-guided intra-abdominal Pleurx catheter placement on March 05, 2020. The patient had apparently been active with outpatient hospice but rescinded his services. On presentation to the emergency department, the patient was noted to be afebrile with a presenting blood pressure of 80/35 mmHg. He was maintaining appropriate oxygen saturations on room air. Laboratory evaluation revealed a white blood cell count of 23,000 with a hemoglobin of 9.1 g/dL. INR was noted to be 2.1. Sodium was low at 113 with a chloride of 85, potassium of 6.7, bicarbonate of 16, BUN of 150 and creatinine of 4.45. Lactate was elevated to 2.3. Total bili was increased to 6.1. Albumin was low at 1.9. Head CT was unremarkable. CT abdomen revealed nonobstructing renal calculi along with partial atelectasis in the right lung base with air bronchograms. The patient's hyperkalemia was treated medically. The patient was placed on supplemental IV fluids. The patient was subsequently transferred to the medical intensive care unit, where he had to be started on vasopressor support and antimicrobials. Overnight, the patient did have a temporary hemodialysis catheter placed with plans for dialysis this morning. The patient is still awaiting transfer to [facility]. Past Medical History Past Medical History (Chronic Problems): Chronic Problems (Last Reviewed 03/12/20 @ 12:54 by Annette Santo) Chronic anemia (Chronic) HTN (hypertension) (Chronic) Alcoholism (Chronic) Alcoholic cirrhosis (Chronic) Anasarca (Chronic) Ascites (Chronic) Hyponatremia (Chronic) Anemia (Chronic) Medical History: Medical History (Last Reviewed 03/12/20 @ 12:54 by Annette Santo) HTN (hypertension) (Chronic) I10 Alcoholism (Chronic) F10.20 Alcoholic cirrhosis (Chronic) K70.30 Anasarca (Chronic) R60.1 Ascites (Chronic) R18.8 Hyponatremia (Chronic) E87.1 PETER (acute kidney injury) (Acute) N17.9 Anemia (Chronic) D64.9 Abscess (Resolved) L02.91 Bacteremia (Resolved) R78.81 Allergies lisinopril Allergy (Verified 04/01/20 13:26) PT UNSURE OF REACTION acetaminophen [From Tylenol] Adverse Reaction (Verified 04/01/20 13:26) LIVER ISSUES codeine Adverse Reaction (Verified 04/01/20 13:26) Nausea diphenhydramine [From Benadryl] Adverse Reaction (Verified 04/01/20 13:26) passed out Given with blood transfusion and pt states he passed out afterwards hydrocodone [From Vicodin] Adverse Reaction (Verified 04/01/20 13:26) Itching Home Medications: Ambulatory Orders Medication Instructions Recorded Spironolactone 50 mg PO DAILY 02/11/20 Furosemide [Lasix] 40 mg PO DAILY 03/04/20 Folic Acid 1 mg PO DAILY@0800 03/19/20 Doxycycline 100 mg PO BID #6 cap 03/24/20 Midodrine HCl [Proamatine] 10 mg PO TID #60 tab 03/24/20 Ammonium Lactate [Skin Treatment] 1 applic TP DAILY PRN PRN 04/01/20 Guaifenesin [Cough Syrup] 5 ml PO Q4H PRN PRN 04/01/20 Lactulose 15 ml PO BID 04/01/20 Oxycodone HCl 5 mg PO Q6H PRN 04/01/20 Promethazine HCl 25 mg PO Q6H PRN PRN 04/01/20 Surgical History: Surgical History (Last Updated 03/12/20 @ 12:56 by Annette Santo) ory pleurx cateter Onset Date: ~03/05/20 History of hernia repair Z98.890, Z87.19 Surgical History: - - Inguinal and umbilical hernia repair, colonoscopy, Psychiatric History: Anxiety Lives: Alone Smoking Status: Current every day smoker Tobacco Use: Cigarettes Alcohol: Sober Drugs: None - *Family History Maternal History Items: Cancer - colon, Hypertension, Stroke Paternal History Items: Heart Disease, Hypertension Review of Systems Constitutional: Reports: Malaise, Weakness, Fatigue Eyes: Reports: Double vision HEENT: Denies: Head Aches, Sinus Congestion, Sinus Drainage Cardiovascular: Denies: Chest Pain, Palpitations Respiratory: Denies: Cough, Shortness of breath at rest, Sputum production Gastrointestinal: Denies: Abdominal Pain, Nausea, Vomiting Genitourinary: Denies: Dysuria Musculoskeletal: Reports: Back Pain Skin: Denies: Rash, Wounds Neurological: Reports: Balance problems Psychiatric: Denies: Anxiety, Depression, Homicidal Ideations, Suicidal Ideations Hematologic/ Lymphatic: Reports: Anemia Patient Problems: Active and Suspected Problems (Last Reviewed 03/12/20 @ 12:54 by Annette Santo) PETER (acute kidney injury) (Acute) Objective: The patient's most recent lab work, culture data and imaging studies have all been personally reviewed. Rapid coronavirus antigen testing was negative. Blood cultures are pending. - Physical Exam Vitals/I&O's: Vital Signs Temp Pulse Resp BP Pulse Ox 98.2 F 82 15 97/35 L 94 04/02/20 04:00 04/02/20 06:00 04/02/20 06:00 04/02/20 06:30 04/02/20 06:00 Oxygen Delivery Method Room Air Weight: 207 lb 10.807 oz Body Mass Index (BMI) 28.3 Intake and Output for Last 24 Hours 03/31/20 04/01/20 04/02/20 23:59 23:59 23:59 Intake Total 2414.45 / 2516.33 493.25 / 493.25 Output Total 0 / 0 500 / 500 Balance 2414.45 / 2516.33 -6.75 / -6.75 General: Alert, Cooperative, No apparent distress HEENT: Atraumatic, PERRLA, Normocephalic, - - Scleral icterus present Oral: Dry Mucosa, - - Poor dentition Neck: Supple, No Nodes, Trachea Midline, - - Right IJ temporary HD line in place Lungs: No rhonchi, No wheeze, No rales, Diminished Cardiovascular: Regular rate, Regular Rhythm Abdomen: Bowel Sounds Present, Soft, - - Dislodged peritoneal catheter draining cloudy yellow fluid Extremities: No clubbing, No cyanosis Skin: No rashes Musculoskeletal: No Tenderness to Palpation of Joints or Extremities Lymphatic: No Cervical, Supraclavicular, or Inguinal Adenopathy Neurological: Cranial nerves II-XII grossly intact, Neuro grossly intact Psych/Mental Status: Flat Affect Labs (Last 48 Hours) 04/01/20 04/01/20 04/01/20 14:00 14:00 14:00 WBC 23.4 H RBC 2.81 L Hgb 9.1 L Hct 25.6 L MCV 91.1 MCH 32.4 H MCHC 35.5 RDW Std Deviation 55.3 H RDW Coeff of Pravin 16.8 H Plt Count 74 L MPV 11.6 Immature Gran % (Auto) 2.900 H Neut % (Auto) 85.1 H Lymph % (Auto) 4.5 L Dickey % (Auto) 7.0 Eos % (Auto) 0.3 Baso % (Auto) 0.2 Absolute Neuts (auto) 19.9 H Absolute Lymphs (auto) 1.04 Nucleated RBC % 0 Differential Comment COMMENT Diff Path Review May foll Platelet Estimate MOD DEC PT INR Sodium 113 L* Potassium 6.7 H* Chloride 85 L Carbon Dioxide 16.0 L Anion Gap 12 BUN 150 H* Creatinine 4.45 H Estim Creat Clear Calc 19.98 Est GFR (MDRD) Af Amer 18 L Est GFR (MDRD) Non-Af 15 L BUN/Creatinine Ratio 33.7 H Glucose 64 L Lactic Acid 2.3 H* Calcium 9.1 Phosphorus Magnesium Total Bilirubin 6.10 H AST 68 H ALT 44 Alkaline Phosphatase 159 H Ammonia Lactate Dehydrogenase Total Protein 5.6 L Albumin 1.9 L Globulin 3.7 Albumin/Globulin Ratio 0.5 L Lipase 756 H Fluid Source Fluid Color Fluid Appearance Fluid pH Fluid WBC Fluid RBC Fluid Tot Cell Count Fld Polynuclear WBCs # Fld Polynuclear WBCs % Fluid Mononuclear WBCs Fld Mononuclear WBCs % Fluid Neutrophils Fluid Monocytes Fl Pathologist Comment Fluid Glucose Fluid Total Protein Fluid LDH Fluid Amylase Fluid Comment 2 MRSA (PCR) POC Glucose Blood Type A1 Antigen Typing Rho(D) Type Antibody Screen Crossmatch 04/01/20 04/01/20 04/01/20 15:17 17:20 17:20 WBC RBC Hgb Hct MCV MCH MCHC RDW Std Deviation RDW Coeff of Pravin Plt Count MPV Immature Gran % (Auto) Neut % (Auto) Lymph % (Auto) Dickey % (Auto) Eos % (Auto) Baso % (Auto) Absolute Neuts (auto) Absolute Lymphs (auto) Nucleated RBC % Differential Comment Diff Path Review Platelet Estimate PT INR Sodium 117 L* Potassium 6.0 H* Chloride 88 L Carbon Dioxide 18.0 L Anion Gap 11 BUN 148 H* Creatinine 4.20 H Estim Creat Clear Calc 21.17 Est GFR (MDRD) Af Amer 19 L Est GFR (MDRD) Non-Af 16 L BUN/Creatinine Ratio 35.2 H Glucose 62 L Lactic Acid Calcium 8.7 Phosphorus Magnesium Total Bilirubin AST ALT Alkaline Phosphatase Ammonia < 10.0 L Lactate Dehydrogenase 109 Total Protein Albumin Globulin Albumin/Globulin Ratio Lipase Fluid Source Fluid Color Fluid Appearance Fluid pH Fluid WBC Fluid RBC Fluid Tot Cell Count Fld Polynuclear WBCs # Fld Polynuclear WBCs % Fluid Mononuclear WBCs Fld Mononuclear WBCs % Fluid Neutrophils Fluid Monocytes Fl Pathologist Comment Fluid Glucose Fluid Total Protein Fluid LDH Fluid Amylase Fluid Comment 2 MRSA (PCR) POC Glucose Blood Type A1 Antigen Typing Rho(D) Type Antibody Screen Crossmatch 04/01/20 04/01/20 04/01/20 17:20 18:05 18:05 WBC RBC Hgb Hct MCV MCH MCHC RDW Std Deviation RDW Coeff of Pravin Plt Count MPV Immature Gran % (Auto) Neut % (Auto) Lymph % (Auto) Dickey % (Auto) Eos % (Auto) Baso % (Auto) Absolute Neuts (auto) Absolute Lymphs (auto) Nucleated RBC % Differential Comment Diff Path Review Platelet Estimate PT INR Sodium Potassium Chloride Carbon Dioxide Anion Gap BUN Creatinine Estim Creat Clear Calc Est GFR (MDRD) Af Amer Est GFR (MDRD) Non-Af BUN/Creatinine Ratio Glucose Lactic Acid Calcium Phosphorus Magnesium 2.9 H Total Bilirubin AST ALT Alkaline Phosphatase Ammonia Lactate Dehydrogenase Total Protein Albumin Globulin Albumin/Globulin Ratio Lipase Fluid Source Fluid Color Fluid Appearance Fluid pH Pending Fluid WBC Fluid RBC Fluid Tot Cell Count Fld Polynuclear WBCs # Fld Polynuclear WBCs % Fluid Mononuclear WBCs Fld Mononuclear WBCs % Fluid Neutrophils Fluid Monocytes Fl Pathologist Comment Fluid Glucose 34 L* Fluid Total Protein 1.1 Fluid LDH 477 Fluid Amylase Pending Fluid Comment 2 MRSA (PCR) POC Glucose Blood Type A1 Antigen Typing Rho(D) Type Antibody Screen Crossmatch 04/01/20 04/01/20 04/01/20 18:18 18:33 18:33 WBC RBC Hgb Hct MCV MCH MCHC RDW Std Deviation RDW Coeff of Pravin Plt Count MPV Immature Gran % (Auto) Neut % (Auto) Lymph % (Auto) Dickey % (Auto) Eos % (Auto) Baso % (Auto) Absolute Neuts (auto) Absolute Lymphs (auto) Nucleated RBC % Differential Comment Diff Path Review Platelet Estimate PT 23.3 H INR 2.1 Sodium Potassium Chloride Carbon Dioxide Anion Gap BUN Creatinine Estim Creat Clear Calc Est GFR (MDRD) Af Amer Est GFR (MDRD) Non-Af BUN/Creatinine Ratio Glucose Lactic Acid 3.2 H* Calcium Phosphorus Magnesium Total Bilirubin AST ALT Alkaline Phosphatase Ammonia Lactate Dehydrogenase Total Protein Albumin Globulin Albumin/Globulin Ratio Lipase Fluid Source PLEURAL FLUID Fluid Color YELLOW Fluid Appearance CLOUDY Fluid pH Fluid WBC 20.442 Fluid RBC 0.004 Fluid Tot Cell Count 20.517 Fld Polynuclear WBCs # 19.275 Fld Polynuclear WBCs % 83.2 Fluid Mononuclear WBCs 3.890 Fld Mononuclear WBCs % 16.8 Fluid Neutrophils 95 Fluid Monocytes 5 Fl Pathologist Comment May follow Fluid Glucose Fluid Total Protein Fluid LDH Fluid Amylase Fluid Comment 2 SEE COMMENT MRSA (PCR) POC Glucose Blood Type A1 Antigen Typing Rho(D) Type Antibody Screen Crossmatch 04/01/20 04/01/20 04/01/20 21:00 21:10 22:30 WBC RBC Hgb Hct MCV MCH MCHC RDW Std Deviation RDW Coeff of Pravin Plt Count MPV Immature Gran % (Auto) Neut % (Auto) Lymph % (Auto) Dickey % (Auto) Eos % (Auto) Baso % (Auto) Absolute Neuts (auto) Absolute Lymphs (auto) Nucleated RBC % Differential Comment Diff Path Review Platelet Estimate PT INR Sodium 117 L* Potassium 6.5 H* Chloride 90 L Carbon Dioxide 17.0 L Anion Gap 10 BUN 150 H* Creatinine 4.23 H Estim Creat Clear Calc 21.02 Est GFR (MDRD) Af Amer 19 L Est GFR (MDRD) Non-Af 16 L BUN/Creatinine Ratio 35.5 H Glucose 70 L Lactic Acid 3.4 H* Calcium 8.7 Phosphorus Magnesium Total Bilirubin AST ALT Alkaline Phosphatase Ammonia Lactate Dehydrogenase Total Protein Albumin Globulin Albumin/Globulin Ratio Lipase Fluid Source Fluid Color Fluid Appearance Fluid pH Fluid WBC Fluid RBC Fluid Tot Cell Count Fld Polynuclear WBCs # Fld Polynuclear WBCs % Fluid Mononuclear WBCs Fld Mononuclear WBCs % Fluid Neutrophils Fluid Monocytes Fl Pathologist Comment Fluid Glucose Fluid Total Protein Fluid LDH Fluid Amylase Fluid Comment 2 MRSA (PCR) Negative POC Glucose Blood Type A1 Antigen Typing Rho(D) Type Antibody Screen Crossmatch 04/02/20 04/02/20 04/02/20 01:09 01:15 01:15 WBC RBC Hgb Hct MCV MCH MCHC RDW Std Deviation RDW Coeff of Pravin Plt Count MPV Immature Gran % (Auto) Neut % (Auto) Lymph % (Auto) Dickey % (Auto) Eos % (Auto) Baso % (Auto) Absolute Neuts (auto) Absolute Lymphs (auto) Nucleated RBC % Differential Comment Diff Path Review Platelet Estimate PT INR Sodium Potassium Chloride Carbon Dioxide Anion Gap BUN Creatinine Estim Creat Clear Calc Est GFR (MDRD) Af Amer Est GFR (MDRD) Non-Af BUN/Creatinine Ratio Glucose Lactic Acid Calcium Phosphorus Magnesium Total Bilirubin AST ALT Alkaline Phosphatase Ammonia Lactate Dehydrogenase Total Protein Albumin Globulin Albumin/Globulin Ratio Lipase Fluid Source Fluid Color Fluid Appearance Fluid pH Fluid WBC Fluid RBC Fluid Tot Cell Count Fld Polynuclear WBCs # Fld Polynuclear WBCs % Fluid Mononuclear WBCs Fld Mononuclear WBCs % Fluid Neutrophils Fluid Monocytes Fl Pathologist Comment Fluid Glucose Fluid Total Protein Fluid LDH Fluid Amylase Fluid Comment 2 MRSA (PCR) POC Glucose 138 H Blood Type O POSITIVE Cancelled A1 Antigen Typing Cancelled Rho(D) Type Cancelled Antibody Screen NEGATIVE Cancelled Crossmatch See Detail 04/02/20 04/02/20 04/02/20 02:20 02:20 02:23 WBC 16.8 H RBC 2.17 L Hgb 6.9 L Hct 19.7 L MCV 90.8 MCH 31.8 MCHC 35.0 RDW Std Deviation 55.4 H RDW Coeff of Pravin 16.6 H Plt Count 56 L MPV 11.0 Immature Gran % (Auto) 2.000 H Neut % (Auto) 81.8 H Lymph % (Auto) 6.3 L Dickey % (Auto) 9.1 Eos % (Auto) 0.7 Baso % (Auto) 0.1 Absolute Neuts (auto) 13.8 H Absolute Lymphs (auto) 1.06 Nucleated RBC % 0 Differential Comment Diff Path Review May foll Platelet Estimate PT INR Sodium 119 L* Potassium 5.7 H Chloride 92 L Carbon Dioxide 16.0 L Anion Gap 11 BUN 149 H* Creatinine 4.11 H Estim Creat Clear Calc 21.63 Est GFR (MDRD) Af Amer 20 L Est GFR (MDRD) Non-Af 16 L BUN/Creatinine Ratio 36.3 H Glucose 63 L Lactic Acid Calcium 8.3 L Phosphorus 9.0 H* Magnesium 2.8 H Total Bilirubin 3.90 H AST 51 H ALT 34 Alkaline Phosphatase 116 Ammonia Lactate Dehydrogenase Total Protein 4.7 L Albumin 1.8 L Globulin 2.9 Albumin/Globulin Ratio 0.6 L Lipase Fluid Source Fluid Color Fluid Appearance Fluid pH Fluid WBC Fluid RBC Fluid Tot Cell Count Fld Polynuclear WBCs # Fld Polynuclear WBCs % Fluid Mononuclear WBCs Fld Mononuclear WBCs % Fluid Neutrophils Fluid Monocytes Fl Pathologist Comment Fluid Glucose Fluid Total Protein Fluid LDH Fluid Amylase Fluid Comment 2 MRSA (PCR) POC Glucose 60 L Blood Type A1 Antigen Typing Rho(D) Type Antibody Screen Crossmatch 04/02/20 04/02/20 02:45 05:25 WBC RBC Hgb Hct MCV MCH MCHC RDW Std Deviation RDW Coeff of Pravin Plt Count MPV Immature Gran % (Auto) Neut % (Auto) Lymph % (Auto) Dickey % (Auto) Eos % (Auto) Baso % (Auto) Absolute Neuts (auto) Absolute Lymphs (auto) Nucleated RBC % Differential Comment Diff Path Review Platelet Estimate PT INR Sodium Potassium Chloride Carbon Dioxide Anion Gap BUN Creatinine Estim Creat Clear Calc Est GFR (MDRD) Af Amer Est GFR (MDRD) Non-Af BUN/Creatinine Ratio Glucose Lactic Acid Calcium Phosphorus Magnesium Total Bilirubin AST ALT Alkaline Phosphatase Ammonia Lactate Dehydrogenase Total Protein Albumin Globulin Albumin/Globulin Ratio Lipase Fluid Source Fluid Color Fluid Appearance Fluid pH Fluid WBC Fluid RBC Fluid Tot Cell Count Fld Polynuclear WBCs # Fld Polynuclear WBCs % Fluid Mononuclear WBCs Fld Mononuclear WBCs % Fluid Neutrophils Fluid Monocytes Fl Pathologist Comment Fluid Glucose Fluid Total Protein Fluid LDH Fluid Amylase Fluid Comment 2 MRSA (PCR) POC Glucose 77 91 Blood Type A1 Antigen Typing Rho(D) Type Antibody Screen Crossmatch Microbiology 04/01/20 17:00 Mucosa - Nose SARS-CoV-2 Antigen (Rapid) - Final Clinical Impression(s) from Imaging Studies Brain CT 04/01/20 13:49 IMPRESSION: Normal unenhanced CT scan of the brain. Electronically Signed: Arvin Vallecillo MD at 14:47 EST , Service support , Abdomen/Pelvis CT 04/01/20 13:50 IMPRESSION: 1. Decrease volume of ascites overlying the surface of the cirrhotic liver. 2. Small hypodense cysts in the left hepatic lobe are unchanged. 3. Contracted gallbladder contains 2.3 cm gallstone. 4. 5 mm nonobstructing calculus in the right lower renal pole, another 2 mm nonobstructing calculus in the right lower renal pole and 3 mm nonobstructing calculus in the right kidney. These are unchanged. 5. Nonvisualization of the appendix but no secondary signs of acute appendicitis. The appendix may be postsurgically absent. 6. Mild haziness of the mesenteric fat is unchanged. 7. Chronic mild thickening of the urinary bladder wall is unchanged. 8. Improvement of the partial atelectases and there bronchograms in the left lower lobe. This is replaced with curvilinear subsegmental atelectases in the left lung base. 9. New partial atelectases in the right posterior lung base with air bronchograms. Electronically Signed: Arvin Vallecillo MD at 15:03 EST , Service support , Chest X-Ray 04/02/20 02:05 IMPRESSION: 1. Appropriate positioning of supportive devices 2. No acute cardiopulmonary disease Electronically Signed: Aftab Zamora MD at 3:05 EST Tel , Service support , Current Medications Acetaminophen (Acetaminophen 325 Mg Tablet) 650 mg PO Q6H PRN PRN PRN Reason: Pain Score 1-10/Temp > 100.7 F Doxycycline Monohydrate (Doxycycline 100 Mg Capsule) 100 mg PO BID [facility] Last Admin: 04/01/20 22:38 Dose: 100 mg Documented by: Folic Acid (Folic Acid 1 Mg Tablet) 1 mg PO DAILY@0800 [facility] Hydromorphone HCl (Hydromorphone 0.5 Mg/0.5 Ml Syringe) 0.5 mg IV Q4H PRN PRN PRN Reason: Pain Score 6-10 Sodium Chloride () 1,000 mls @ 75 mls/hr IV .[id number] [facility] Last Admin: 04/01/20 21:39 Dose: 75 mls/hr Documented by: Piperacillin Sod/Tazobactam (Sod 3.375 gm/ Sodium Chloride) 50 mls @ 12.5 mls/hr IV Q8 [facility] Last Admin: 04/02/20 05:15 Dose: 12.5 mls/hr Documented by: Norepinephrine Bitartrate 8 mg (/ Sodium Chloride) 250 mls @ 9.375 mls/hr CONT INF .[id number] [facility]; Protocol Last Titration: 04/02/20 06:30 Dose: 10 mcg/min, 18.8 mls/hr Documented by: Lactulose (Lactulose 20 Gm/30 Ml Udc) 10 gm PO BID [facility] Last Admin: 04/01/20 22:38 Dose: 10 gm Documented by: Midodrine (Midodrine Hcl 5 Mg Tablet) 10 mg PO TID@0800,1200,1700 [facility] Nitroglycerin (Nitroglycerin (Inpatient Use) 0.4 Mg Tab.Subl) 0.4 mg SUBLINGUAL Q5M PRN PRN Reason: CARDIAC/CHEST PAIN Oxycodone HCl (Oxycodone 5 Mg Tablet) 5 mg PO Q4H PRN PRN PRN Reason: Pain Score 4-5 Last Admin: 04/01/20 21:24 Dose: 5 mg Documented by: Prochlorperazine Edisylate (Prochlorperazine 10 Mg/2 Ml Vial) 5 mg IV Q4H PRN PRN PRN Reason: Breakthrough Nausea/Vomiting Senna/Docusate Sodium (Senna/Docusate Sodium 1 Tablet) 2 tablet PO BID PRN PRN Reason: Constipation Sodium Chloride (0.9% Saline Lock 10 Ml Syringe) 10 - 40 ml IV UD PRN PRN Reason: SALINE FLUSH Last Admin: 04/02/20 04:19 Dose: 40 ml Documented by: Assessment/Plan Active and Suspected Problems (Last Reviewed 03/12/20 @ 12:54 by Annette Santo) PETER (acute kidney injury) (Acute) RECOMMENDATIONS: 1. Remove peritoneal catheter. 2. Continue broad-spectrum antimicrobials, while awaiting infectious work-up. 3. Dialysis support per nephrology recommendations. 4. Place central venous catheter. 5. Continue Levophed to maintain a systolic blood pressure of 90 mmHg. 6. Continue midodrine and lactulose. 7. Await bed availability and subsequent transfer to . IMPRESSIONS: 1. Multifactorial shock Likely hypovolemic in etiology and related to the patient's cirrhosis coupled with underlying sepsis. The patient's peritoneal catheter is dislodged with some drainage around the site raising the concern for infection. The patient is currently on broad-spectrum antimicrobials, which will be continued. I would recommend the cautious use of supplemental IV fluids, given the patient's propensity to third space. Continue vasopressor support as ordered to maintain hemodynamic stability. 2. 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 3. Anemia/thrombocytopenia I do suspect that a component of the patient's anemia and drop in hemoglobin this morning is likely delusional in nature and related to the fluids administered to the patient overnight. He is currently ordered to receive 1 unit of packed red blood cells. Recommend checking H&H posttransfusion. There are no overt signs of any active blood loss. 4. Hyponatremia/hyperkalemia/hypochloremia/nongap metabolic acidosis Secondary to numbers 1 and 2. Management as noted above. 5. Acute on chronic kidney disease Concerned that the patient may have a component of ischemic ATN secondary to #1. Plan to continue current supportive measures with nephrology consultation pending. 6. History of alcoholic cirrhosis/tobacco dependency Complicates care, management, recovery and prognosis. The patient is awaiting transfer to tertiary care facility. TIME: 38 minutes of critical care time, independent of procedures, was spent addressing the patient's multifactorial shock, decompensated liver failure, anemia, thrombocytopenia, hyponatremia, acute on chronic kidney disease, review of all data and collaboration with the care team. [id number]) [id number] Critical care first hour
--- NOTE | 2020-04-02 07:01 | PCM.PN.HOSP ---
Patient Problems: Active and Suspected Problems (Last Reviewed 03/12/20 @ 12:54 by Annette Santo) PETER (acute kidney injury) (Acute) Subjective: Patient overnight with placement of temporary dialysis catheter per surgery with dialysis this morning x1 hour. Patient has been accepted at for consideration of transplant evaluation given appearance and patient ongoing request for full code status, rescinded hospice but awaiting bed at this facility. Patient this morning with dialysis ongoing, notes he is uncomfortable, notes ongoing pain everywhere, worse with any movements, rating his discomfort at 10 out of 10, severe nature he notes. Initially he noted no specific abdominal pain at that time however upon evaluation with palpation patient with rebound. Of note also patient's Pleurx catheter has nearly been pulled completely out by the patient since his recent discharge. Patient denies fevers, chills, nausea, emesis, chest pain. Objective: Physical Examination: General: awake, alert, oriented x 3, extremely irritable, following some requests but intermittently noncooperative, laying in the ICU bed, dialysis currently being initiated, visibly jaundiced. Skin: Jaundiced color, turgor, no icterus, cyanosis. HEENT: AT/NC, EOMI, PERRLA, scleral icterus present, dry MM. Lungs: CTA bilaterally, moderate effort, mild decrease BL bases, no rales, ronchi or wheezing. Heart: Regular rate and rhythm; no gallop, rub audible. Abdomen: soft, severely tender to palpation, diffusely, rebound and guarding evident, not severely distended, distant normal bowel sounds. Extremities: no cyanosis, clubbing, or edema. Neurological: patient awake, alert, oriented as noted; cognitive function improving, nearing baseline intact, extremely irritable with staff; pupils equally reactive to light and accomodation; cranial nerves II-XII grossly normal, moving all 4 extremities, strength severely global decrease secondary to acute presentation. Psychiatric: affect appears lethargic, fatigued, irritable, no acute evidence of depressive or anxiety feelings. Vitals/I&O's: Vital Signs Temp Pulse Resp BP Pulse Ox 98.2 F 82 15 96/40 L 94 04/02/20 04:00 04/02/20 06:00 04/02/20 06:00 04/02/20 06:45 04/02/20 06:00 Oxygen Delivery Method Room Air Weight: 207 lb 10.807 oz Body Mass Index (BMI) 28.3 Intake and Output for Last 24 Hours 03/31/20 04/01/20 04/02/20 23:59 23:59 23:59 Intake Total 2414.45 / 2516.33 497.95 / 497.95 Output Total 0 / 0 500 / 500 Balance 2414.45 / 2516.33 -2.05 / -2.05 Microbiology Past 72 Hours 04/01/20 17:00 Mucosa - Nose SARS-CoV-2 Antigen (Rapid) - Final Laboratory Results 04/01/20 14:00: WBC 23.4 H, RBC 2.81 L, Hgb 9.1 L, Hct 25.6 L, MCV 91.1, MCH 32.4 H, MCHC 35.5, RDW Std Deviation 55.3 H, RDW Coeff of Pravin 16.8 H, Plt Count 74 L, MPV 11.6, Immature Gran % (Auto) 2.900 H, Neut % (Auto) 85.1 H, Lymph % (Auto) 4.5 L, [place] % (Auto) 7.0, Eos % (Auto) 0.3, Baso % (Auto) 0.2, Absolute Neuts (auto) 19.9 H, Absolute Lymphs (auto) 1.04, Nucleated RBC % 0, Differential Comment COMMENT, Diff Path Review June, Platelet Estimate MOD 04/01/20 14:00: Sodium 113 L*, Potassium 6.7 H*, Chloride 85 L, Carbon Dioxide 16.0 L, Anion Gap 12, BUN 150 H*, Creatinine 4.45 H, Estim Creat Clear Calc 19.98, Est GFR (MDRD) Af Amer 18 L, Est GFR (MDRD) Non-Af 15 L, BUN/Creatinine Ratio 33.7 H, Glucose 64 L, Calcium 9.1, Total Bilirubin 6.10 H, AST 68 H, ALT 44, Alkaline Phosphatase 159 H, Total Protein 5.6 L, Albumin 1.9 L, Globulin 3.7, Albumin/Globulin Ratio 0.5 L, Lipase 756 H 04/01/20 14:00: Lactic Acid 2.3 H* 04/01/20 15:17: Ammonia < 10.0 L 04/01/20 17:20: Sodium 117 L*, Potassium 6.0 H*, Chloride 88 L, Carbon Dioxide 18.0 L, Anion Gap 11, BUN 148 H*, Creatinine 4.20 H, Estim Creat Clear Calc 21.17, Est GFR (MDRD) Af Amer 19 L, Est GFR (MDRD) Non-Af 16 L, BUN/Creatinine Ratio 35.2 H, Glucose 62 L, Calcium 8.7 04/01/20 17:20: Lactate Dehydrogenase 109 04/01/20 17:20: Magnesium 2.9 H 04/01/20 18:05: Fluid Glucose 34 L*, Fluid Total Protein 1.1, Fluid LDH 477 04/01/20 18:05: Fluid pH Pending, Fluid Amylase Pending 04/01/20 18:18: Fluid Source PLEURAL FLUID, Fluid Color YELLOW, Fluid Appearance CLOUDY, Fluid WBC 20.442, Fluid RBC 0.004, Fluid Tot Cell Count 20.517, Fld Polynuclear WBCs # 19.275, Fld Polynuclear WBCs % 83.2, Fluid Mononuclear WBCs 3.890, Fld Mononuclear WBCs % 16.8, Fluid Neutrophils 95, Fluid Monocytes 5, Fl Pathologist Comment May follow, Fluid Comment 2 SEE COMMENT 04/01/20 18:33: PT 23.3 H, INR 2.1 04/01/20 18:33: Lactic Acid 3.2 H* 04/01/20 21:00: Sodium 117 L*, Potassium 6.5 H*, Chloride 90 L, Carbon Dioxide 17.0 L, Anion Gap 10, BUN 150 H*, Creatinine 4.23 H, Estim Creat Clear Calc 21.02, Est GFR (MDRD) Af Amer 19 L, Est GFR (MDRD) Non-Af 16 L, BUN/Creatinine Ratio 35.5 H, Glucose 70 L, Calcium 8.7 04/01/20 21:10: MRSA (PCR) Negative 04/01/20 22:30: Lactic Acid 3.4 H* 04/02/20 01:09: POC Glucose 138 H 04/02/20 01:15: Blood Type O POSITIVE, Antibody Screen NEGATIVE 04/02/20 01:15: Blood Type Cancelled, A1 Antigen Typing Cancelled, Rho(D) Type Cancelled, Antibody Screen Cancelled, Crossmatch See Detail 04/02/20 02:20: Sodium 119 L*, Potassium 5.7 H, Chloride 92 L, Carbon Dioxide 16.0 L, Anion Gap 11, BUN 149 H*, Creatinine 4.11 H, Estim Creat Clear Calc 21.63, Est GFR (MDRD) Af Amer 20 L, Est GFR (MDRD) Non-Af 16 L, BUN/Creatinine Ratio 36.3 H, Glucose 63 L, Calcium 8.3 L, Phosphorus 9.0 H*, Magnesium 2.8 H, Total Bilirubin 3.90 H, AST 51 H, ALT 34, Alkaline Phosphatase 116, Total Protein 4.7 L, Albumin 1.8 L, Globulin 2.9, Albumin/Globulin Ratio 0.6 L 04/02/20 02:20: WBC 16.8 H, RBC 2.17 L, Hgb 6.9 L, Hct 19.7 L, MCV 90.8, MCH 31.8, MCHC 35.0, RDW Std Deviation 55.4 H, RDW Coeff of Pravin 16.6 H, Plt Count 56 L, MPV 11.0, Immature Gran % (Auto) 2.000 H, Neut % (Auto) 81.8 H, Lymph % (Auto) 6.3 L, [place] % (Auto) 9.1, Eos % (Auto) 0.7, Baso % (Auto) 0.1, Absolute Neuts (auto) 13.8 H, Absolute Lymphs (auto) 1.06, Nucleated RBC % 0, Diff Path Review June04/02/20 02:23: POC Glucose 60 L 04/02/20 02:45: POC Glucose 77 04/02/20 05:25: POC Glucose 91 Current Medications Acetaminophen (Acetaminophen 325 Mg Tablet) 650 mg PO Q6H PRN PRN PRN Reason: Pain Score 1-10/Temp > 100.7 F Doxycycline Monohydrate (Doxycycline 100 Mg Capsule) 100 mg PO BID [facility] Last Admin: 04/01/20 22:38 Dose: 100 mg Documented by: Folic Acid (Folic Acid 1 Mg Tablet) 1 mg PO DAILY@0800 [facility] Hydromorphone HCl (Hydromorphone 0.5 Mg/0.5 Ml Syringe) 0.5 mg IV Q4H PRN PRN PRN Reason: Pain Score 6-10 Sodium Chloride () 1,000 mls @ 75 mls/hr IV .[id number] [facility] Last Admin: 04/01/20 21:39 Dose: 75 mls/hr Documented by: Piperacillin Sod/Tazobactam (Sod 3.375 gm/ Sodium Chloride) 50 mls @ 12.5 mls/hr IV Q8 [facility] Last Admin: 04/02/20 05:15 Dose: 12.5 mls/hr Documented by: Norepinephrine Bitartrate 8 mg (/ Sodium Chloride) 250 mls @ 9.375 mls/hr CONT INF .[id number] [facility]; Protocol Last Titration: 04/02/20 06:45 Dose: 10 mcg/min, 18.8 mls/hr Documented by: Lactulose (Lactulose 20 Gm/30 Ml Udc) 10 gm PO BID [facility] Last Admin: 04/01/20 22:38 Dose: 10 gm Documented by: Midodrine (Midodrine Hcl 5 Mg Tablet) 10 mg PO TID@0800,1200,1700 [facility] Nitroglycerin (Nitroglycerin (Inpatient Use) 0.4 Mg Tab.Subl) 0.4 mg SUBLINGUAL Q5M PRN PRN Reason: CARDIAC/CHEST PAIN Oxycodone HCl (Oxycodone 5 Mg Tablet) 5 mg PO Q4H PRN PRN PRN Reason: Pain Score 4-5 Last Admin: 04/01/20 21:24 Dose: 5 mg Documented by: Prochlorperazine Edisylate (Prochlorperazine 10 Mg/2 Ml Vial) 5 mg IV Q4H PRN PRN PRN Reason: Breakthrough Nausea/Vomiting Senna/Docusate Sodium (Senna/Docusate Sodium 1 Tablet) 2 tablet PO BID PRN PRN Reason: Constipation Sodium Chloride (0.9% Saline Lock 10 Ml Syringe) 10 - 40 ml IV UD PRN PRN Reason: SALINE FLUSH Last Admin: 04/02/20 04:19 Dose: 40 ml Documented by: STROKE Vital Signs/Narrative: Vital Signs Temp Pulse Resp BP Pulse Ox 04/02/20 06:45 96/40 L 04/02/20 06:30 97/35 L 04/02/20 06:15 94/37 L 04/02/20 06:00 82 15 97/35 L 94 04/02/20 05:45 101/37 L 04/02/20 05:30 99/33 L 04/02/20 05:00 79 15 97/39 L 95 04/02/20 04:45 98/35 L 04/02/20 04:30 99/37 L 04/02/20 04:15 100/46 L 04/02/20 04:00 98.2 F 81 14 100/35 L 92 04/02/20 03:45 98/34 L 04/02/20 03:33 77 04/02/20 03:30 98/37 L 04/02/20 03:15 98/36 L Medical Necessity - Tobacco Use Smoking Status: Current every day smoker Tobacco Use: Cigarettes Assessment/Plan All Active Problems (Last Reviewed 03/12/20 @ 12:54 by Annette Santo) PETER (acute kidney injury) (Acute) Abscess (Resolved) Bacteremia (Resolved) The patient is a 54 y/o M w/ PMHx: Chronic EtOH Cirrhosis with Chronic ascites/anasarca with recent pleurex catheter placement, Chronic Hyponatremia, Chronic anemia, HTN, HLD, Tobacco use who has previously been in the Hospice program, now re-presenting to the [facility] ED on 04/01/20, rescinding hospice with history of recent increased falls, weakness and debility prompting ED evaluation. 1. Acute shock, multifactorial, likely component of hypovolemia, possibly underlying SBP complicated by Decompensated Liver Failure with history of alcoholic cirrhosis, electrolyte disturbances and non-anion gap metabolic acidosis: Work-up in the ED included BP 80/35, CBC with WBC 23, hemoglobin 9.1, INR 2.1, CMP with sodium 113, chloride 85, potassium 6.7, bicarb 16, BUN/creatinine 150/4.45, lactic acid 2.3, total bilirubin 6.1, CT of the head with no acute intracranial findings, CT abdomen and pelvis with nonobstructing renal calculi along with partial atelectasis right lung base with air bronchograms. Patient admitted to the ICU, some concern for possible peritoneal catheter infection with recent Pleurx catheter placed during prior admission noted to be significantly dislodged upon presentation, maintained on broad-spectrum antibiotic therapy with Zosyn therapy, initially on IV Vanco and Zosyn however MRSA screen negative therefore de-escalating, central line placed per photostatic copy maker staff, continued on midodrine and lactulose regimen, 04/02/2020 dialysis performed with continued close CBC, CMP monitoring, awaiting transfer to for evaluation for transplant, removal of previously placed Pleurx catheter given dislodged nature and possible etiology of current infection. 04/02/2020 CMP with total bilirubin 3.90, AST/ALT 51/34, alk phos 116. 2. Acute kidney injury on CKD stage III: Secondary to acute presentation as noted #1, shock, complicated by hypovolemia and underlying cirrhotic disease with decompensated liver failure. Admission BUN/Cr 150/4.23, prior baseline creatinine noted to be 1.0-1.2 however patient has been trending up since February with worsening liver failure and prior admission with last 03/24/2020 creatinine 2.41. Patient continues on pressor therapies, dialysis 04/02/2020 performed, follow-up 04/02/2020 BMP with BUN/creatinine 125/3.42, continue to trend per nephrology discretion, readministered calcium gluconate per nephrology in addition to insulin. 3. Hyperkalemia: Admission potassium 6.7, administered insulin, calcium gluconate, Kayexalate, dialysis performed 04/02/2020, nephrology consulted and following. We will continue to trend with most recent 04/02/2019 1 repeat BMP with potassium 5.1. 4. Acute on chronic hyponatremia: Admission sodium 117, significant additional electrolyte disturbances as noted, dialysis performed 04/02/2020, most recent 04/02/2020 follow-up repeat BMP with sodium 122, will continue to trend. 5. Acute on chronic anemia: Admission hemoglobin 9.1, repeat 04/02/2020 6.9, do suspect delusional in nature secondary to significant fluid administration secondary to shock presentation, plan 1 unit PRBC administration, trend CBC following, no obvious evidence of blood loss noted. 6. Acute on chronic thrombocytopenia: Secondary to #1, decompensated alcoholic cirrhosis and shock setting as noted #1, admission platelets 74, 04/02/2019 1 repeat platelet 56, previous baseline primarily 72-90, continue to closely trend. 7. History of alcohol abuse: Patient notes maintaining sobriety since May 2019. 8. Anxiety with history of panic attacks: Given current status not on regimen, would hold any sedate of medications especially given hypotensive nature on pressors, would benefit from outpatient follow-up if actually amenable. 9. Hypertension: Given hypotensive presentation with shock as noted on pressors holding patient spironolactone and Lasix therapy. 10. Tobacco Abuse: Encouraged cessation, inpatient consultation per RT, NR if desired. 11. DVT prophylaxis: SCDs, hold on any chemoprophylaxis given acute presentation as noted. 12. CODE STATUS: Full code. Inpatient E&M: 77968 Subs Hosp L3
--- NOTE | 2020-04-02 08:37 | CASEMGMT ---
LAKESHIA LOFTON Readmission Review: Index admission: 03/19 - 03/24/20 Index Dx: Severe sepsis suspected secondary to SBP, ETOH liver cirrhosis w/ascites and hepatic encephalopathy, PETER, hyperk, a/c anemia, hyponatremia Index DC Disposition: Home with [facility] Pt presented to the ED on 04/01 with c/o blurred vision, weakness, and hypotension. Pt remains a full code and therefore revoked the hospice services prior to presentation. Pt readmitted with recurrent severe sepsis suspected secondary to SBP/possible hepatobiliary sepsis, decompensated cirrhosis, hyponatremia, anemia, PETER, hyperkalemia, acidosis, thrombocytopenia, and coagulopathy all related to pt's advanced liver cirrhosis. Pt continues with Pleurx catheter for ascites fluid management. Noted pt remains a full code. HD catheter inserted. Noted transfer to is pending for continued treatment per pt's wishes. Pt with two friends who are his only support. Pt estranged from his and son. Pt lives alone and as reported by hospice staff this is not a safe environment. Please see other RN ROLLY note regarding further communications from [facility] staff. Pt's with progressive weakness and ability to care for self declining. Will continue to monitor pt's progress and assist with next level of care as determined. Jeison Bolton RN CM
[2020-04-02] MEDS: Lidocaine Jelly 2% 20 ML Syringe (URO-JET) 20 APPLIC TOPICAL (09:00)
--- NOTE | 2020-04-02 09:03 | RAD_ITS ---
STUDY: X-RAY CHEST REASON FOR EXAM: Male, 54 years old. Line placement. TECHNIQUE: AP upright portable view. COMPARISON: To 02/07/2021 at 2:43 AM. FINDINGS: Right IJ approach central line catheter tip remains in the SVC. A smaller Chinese catheter left IJ approach central line catheter tip is in the SVC/right upper atrial chamber junction. No pneumothorax. Mild pulmonary hypoinflation. Minimal subsegmental atelectases in the right lung base. No suspicious infiltrates. There is no demonstrated pleural abnormality. Normal size heart. Normal mediastinum and sanju. Normal visualized pulmonary arteries. Normal visualized aortic arch and descending thoracic aorta. Normal visualized thoracic spine. Normal visualized ribs, clavicles, and shoulders. Right-sided colonic interposition and gastric gaseous dilatation. RAD/CXR for Line Placement IMPRESSION: 1. No acute cardiopulmonary pathology. 2. No pneumothorax following a second left central line catheter placement was placed and its tip is in the SVC/right upper atrial chamber junction. 3. Right central line catheter tip remains in the SVC and unchanged. Electronically Signed: Arvin Vallecillo MD at 9:54 EST , Service support ,
--- NOTE | 2020-04-02 09:03 | NURSING ---
0830, Chantal Gr CNP present in pt room, prep for CL placement. 0835 HR 79 R 17 BP 94/36 SpO2 95 RA 0840 HR 80 R 17 BP 96/33 SpO2 95 0845 HR 80 R 18 BP 91/35 SpO2 95 0850 HR 80 R 18 BP 91/32 SpO2 96 LIJ 20cm TL placed Initialized on 04/02/20 08:36 - END OF NOTE
--- NOTE | 2020-04-02 09:08 | PCM.OPRPT ---
Report of Operation Date of Procedure: 04/02/20 Surgery/Procedure Performed:: Triple lumen chath insert Description of Surgical Findings:: Central line placement procedure note Indication: IV access/hemodynamic instability/vasoactive medications Procedure: A time-out was completed to verify correct patient, indication, medication allergies, procedure, coagulation studies, informed consent signed, and equipment needed. The patient was placed in the supine position for a central line placement to the left IJ vein. The patients left neck was prepped using chlorhexidine and a full body sterile drape was applied. 1% lidocaine was used to anesthetize the surrounding skin. A 7fr 20 cm blue guard triple lumen catheter introduced into the internal jugular vein using the modified Seldinger technique with the assistance of ultrasound. The catheter was threaded smoothly over the guidewire, the guidewire was removed easily, nonpulsatile blood returned. All ports were aspirated of air and flushed with sterile saline. The catheter was sutured in place and covered with an occlusive dressing impregnated with chlorhexidine. Post-procedure: The patient tolerated the procedure well. Vital signs remained stable. EBL 0 cc. No complications. Chest X Ray ordered to confirm tip placement and the absence of pneumothorax. Procedures: 92108 Insert Non-tunnel CV Cath
[2020-04-02 09:31] LABS: Pathologist Comment/Body Fluid Reviewed
[2020-04-02 09:35] LABS: Pathologist Review Reviewed
[2020-04-02 09:37] LABS: Pathologist Review Reviewed
--- NOTE | 2020-04-02 10:17 | CASEMGMT ---
Transfer Note: [facility] facilities for Tertiary care using [employer] Website. [place]: [facility], [facility], [facility], [facility] [place]od[place]/Michele: [facility], Radha REYES Anna: Regulo LOPEZ [facility]: [facility]: [facility], [facility]
[2020-04-02] MEDS: 0.9% Normal Saline 1,000 ML 75 ML IV ×2 (10:42→21:06)
[2020-04-02] MEDS: Folic Acid 1 MG Tablet PO (10:43)
[2020-04-02] MEDS: Midodrine HCl 5 MG Tablet 10 MG PO ×3 (10:43→18:20)
[2020-04-02] MEDS: Doxycycline 100 MG CAPSULE PO ×2 (10:44→21:07)
[2020-04-02 11:00] LABS: Hepatitis B Surface Antigen Non-Reactive (Nonreactive)
--- NOTE | 2020-04-02 12:21 | DIALYSIS ---
Hemodialysis (1st tx) completed at 1120 on a 2K bath, 1hr tx today, tolerated poorly, hypotensive but asymptomatic and awake throughout tx, UF -700mL (gain of 700mL), on Levophed, received midodrine during tx, received 1unit PRBCs with dialysis, accessed via right neck temporary dialysis catheter, worked well, BMP to be drawn 1.5-2hrs post tx and reported to well tender, next tx planned for tomorrow
--- NOTE | 2020-04-02 12:43 | DIALYSIS ---
1 unit PRBCs infused during dialysis, tolerated well, no s/s of transfusion reaction, pre transfusion temp 98.4, after 5 mins temp 98.2, post transfusion temp 98, see dialysis flowsheets in patient chart for more info
[2020-04-02] MEDS: Heparin 10,000 UNITS/10 ML Vial IV (13:32)
[2020-04-02] MEDS: Lactulose 20 GM/30 ML UDC 10 GM PO (13:34)
[2020-04-02 14:31] LABS: Anion Gap 10 (5-15); BUN 125 mg/dL (7-18); BUN/Creat Ratio 36.5 RATIO (10-20); Calcium,Total 7.7 mg/dL (8.5-10.1); Chloride 93 mmol/L (98-107); Creatinine, Serum 3.42 mg/dL (0.70-1.30); EST Glomerular Filtration Rate 20 mL/min (>60); Est Glom Filt Rate - Afr Amer 24 mL/min (>60); Estimated Creatinine Clearance 25.99 ml/min; Glucose 104 mg/dL (74-106); Potassium 5.1 mmol/L (3.5-5.1); Sodium Level 122 mmol/L (136-145)
--- NOTE | 2020-04-02 16:48 | CON.PCM_ITS ---
Consultation - Renal 04/02/20 PCP/ Referring MD: Requesting physician: [] Primary care physician: Dr. Jayesh Jeffers MD - History of Present Illness History of Present Illness: The patient is a 54 year old M with a past medical history of decompensated alcoholic cirrhosis and recurrent admissions in the last on renal between March 19 and March 24 for severe sepsis secondary to SBP who presented yesterday to the emergency room with blurry vision decreased mobility. He also had a fall 2 nights prior to admission on his chest without any major injury. The patient revoked the hospice service so he was sent to the emergency room. He was found to be in shock with a blood pressure of 80/35 which improved to 90/30 after 1 L of fluids but later on he required Levophed after midodrine. His potassium was elevated which prompted renal consult. Initial potassium was 6.7 went down to 6.2 and then went up again to 6.5 so he required placement of a dialysis line and he tolerated well dialysis about an hour today. Hyperkalemia was treated medically. Patient is awaiting transfer to [facility]. The patient denies abdominal pain chest pain shortness of breath dysuria hematuria. Except discomfort at the Corye catheter site has no other complaints. He is not sure if his urine got darker prior to admission or not. - Allergies Allergies: Allergies lisinopril Allergy (Verified 04/01/20 13:26) PT UNSURE OF REACTION acetaminophen [From Tylenol] Adverse Reaction (Verified 04/01/20 13:26) LIVER ISSUES codeine Adverse Reaction (Verified 04/01/20 13:26) Nausea diphenhydramine [From Benadryl] Adverse Reaction (Verified 04/01/20 13:26) passed out Given with blood transfusion and pt states he passed out afterwards hydrocodone [From Vicodin] Adverse Reaction (Verified 04/01/20 13:26) Itching - Current Medications Current Medications: Current Medications Acetaminophen (Acetaminophen 325 Mg Tablet) 650 mg PO Q6H PRN PRN PRN Reason: Pain Score 1-10/Temp > 100.7 F Calamine/Phenol (Menthol/Lanolin/Calamine/Znox 113 Gm Tube) 1 applic TOPICAL BID [facility]; Protocol Doxycycline Monohydrate (Doxycycline 100 Mg Capsule) 100 mg PO BID [facility] Last Admin: 04/02/20 10:44 Dose: 100 mg Documented by: Folic Acid (Folic Acid 1 Mg Tablet) 1 mg PO DAILY@0800 [facility] Last Admin: 04/02/20 10:43 Dose: 1 mg Documented by: Hydralazine HCl (Hydralazine 20 Mg/Ml Vial) 10 mg IV Q4H PRN PRN PRN Reason: SBP > 160 Sodium Chloride () 1,000 mls @ 75 mls/hr IV .[id number] [facility] Last Admin: 04/02/20 10:42 Dose: 75 mls/hr Documented by: Norepinephrine Bitartrate 8 mg (/ Sodium Chloride) 250 mls @ 9.375 mls/hr CONT INF .[id number] [facility]; Protocol Last Titration: 04/02/20 14:00 Dose: 20 mcg/min, 37.5 mls/hr Documented by: Piperacillin Sod/Tazobactam (Sod 3.375 gm/ Sodium Chloride) 50 mls @ 12.5 mls/hr IV Q12 [facility] Midodrine (Midodrine Hcl 5 Mg Tablet) 10 mg PO TID@0800,1200,1700 [facility] Last Admin: 04/02/20 13:33 Dose: 10 mg Documented by: Nitroglycerin (Nitroglycerin (Inpatient Use) 0.4 Mg Tab.Subl) 0.4 mg SUBLINGUAL Q5M PRN PRN Reason: CARDIAC/CHEST PAIN Oxycodone HCl (Oxycodone 5 Mg Tablet) 5 mg PO Q4H PRN PRN PRN Reason: Pain Score 4-5 Last Admin: 04/01/20 21:24 Dose: 5 mg Documented by: Prochlorperazine Edisylate (Prochlorperazine 10 Mg/2 Ml Vial) 5 mg IV Q4H PRN PRN PRN Reason: Breakthrough Nausea/Vomiting Senna/Docusate Sodium (Senna/Docusate Sodium 1 Tablet) 2 tablet PO BID PRN PRN Reason: Constipation Sodium Chloride (0.9% Saline Lock 10 Ml Syringe) 10 - 40 ml IV UD PRN PRN Reason: SALINE FLUSH Last Admin: 04/02/20 13:56 Dose: 40 ml Documented by: - Past Medical History Past Medical History (Chronic Problems): Chronic Problems (Last Reviewed 03/12/20 @ 12:54 by Annette Santo) Chronic anemia (Chronic) HTN (hypertension) (Chronic) Alcoholism (Chronic) Alcoholic cirrhosis (Chronic) Anasarca (Chronic) Ascites (Chronic) Hyponatremia (Chronic) Anemia (Chronic) - Past Surgical History Surgical History: - - Inguinal and umbilical hernia repair, colonoscopy, - Social History Smoking Status: Current every day smoker Alcohol: Sober Drugs: None - Family History Maternal History Items: Cancer - colon, Hypertension, Stroke Paternal History Items: Heart Disease, Hypertension Review of Systems Eyes: Reports: - - Poor historian but review of systems otherwise negative unless noted in the HPI Patient Problems: Active and Suspected Problems (Last Reviewed 03/12/20 @ 12:54 by Annette Santo) PETER (acute kidney injury) (Acute) - Physical Exam Vitals/I&O's: Vital Signs Temp Pulse Resp BP Pulse Ox 98.3 F 81 16 97/49 L 94 04/02/20 14:00 04/02/20 15:00 04/02/20 14:00 04/02/20 14:00 04/02/20 14:00 Oxygen Delivery Method Room Air Weight: 94.2 kg Body Mass Index (BMI) 28.3 Intake and Output for Last 24 Hours 03/31/20 04/01/20 04/02/20 23:59 23:59 23:59 Intake Total 2414.45 / 2516.33 2466.76 / 2466.76 Output Total 0 / 0 1690 / 1690 Balance 2414.45 / 2516.33 776.76 / 776.76 General: Alert, Cooperative HEENT: Atraumatic, Normocephalic Lungs: Clear to auscultation, Normal air movement Cardiovascular: Regular rate, Regular Rhythm, Normal S1, Normal S2 Abdomen: Bowel Sounds Present, Soft, Non Tender Extremities: No cyanosis, No edema Microbiology Past 72 Hours 04/01/20 17:20 Fluid - Other Gram Stain - Final 04/01/20 17:20 Fluid - Other Body Fluid Culture - Preliminary GNR 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 04/02/20 10:00 Urine Catheter - Corey Legionella Antigen - Final 04/02/20 10:00 Urine Catheter - Corey Streptococcus pneumoniae Antigen (M - Final 04/01/20 17:00 Mucosa - Nose SARS-CoV-2 Antigen (Rapid) - Final Laboratory Results 04/01/20 14:00: Diff Path Review Reviewed 04/01/20 17:20: Sodium 117 L*, Potassium 6.0 H*, Chloride 88 L, Carbon Dioxide 18.0 L, Anion Gap 11, BUN 148 H*, Creatinine 4.20 H, Estim Creat Clear Calc 21.17, Est GFR (MDRD) Af Amer 19 L, Est GFR (MDRD) Non-Af 16 L, BUN/Creatinine Ratio 35.2 H, Glucose 62 L, Calcium 8.7 04/01/20 17:20: Lactate Dehydrogenase 109 04/01/20 17:20: Magnesium 2.9 H 04/01/20 18:05: Fluid Glucose 34 L*, Fluid Total Protein 1.1, Fluid LDH 477 04/01/20 18:05: Fluid pH Pending, Fluid Amylase Pending 04/01/20 18:18: Fluid Source PLEURAL FLUID, Fluid Color YELLOW, Fluid Appearance CLOUDY, Fluid WBC 20.442, Fluid RBC 0.004, Fluid Tot Cell Count 20.517, Fld Polynuclear WBCs # 19.275, Fld Polynuclear WBCs % 83.2, Fluid Mononuclear WBCs 3.890, Fld Mononuclear WBCs % 16.8, Fluid Neutrophils 95, Fluid Monocytes 5, Fl Pathologist Comment Reviewed, Fluid Comment 2 SEE COMMENT 04/01/20 18:33: PT 23.3 H, INR 2.1 04/01/20 18:33: Lactic Acid 3.2 H* 04/01/20 21:00: Sodium 117 L*, Potassium 6.5 H*, Chloride 90 L, Carbon Dioxide 17.0 L, Anion Gap 10, BUN 150 H*, Creatinine 4.23 H, Estim Creat Clear Calc 21.02, Est GFR (MDRD) Af Amer 19 L, Est GFR (MDRD) Non-Af 16 L, BUN/Creatinine Ratio 35.5 H, Glucose 70 L, Calcium 8.7 04/01/20 21:10: MRSA (PCR) Negative 04/01/20 22:30: Lactic Acid 3.4 H* 04/02/20 01:09: POC Glucose 138 H 04/02/20 01:15: Blood Type O POSITIVE, Antibody Screen NEGATIVE 04/02/20 01:15: Blood Type Cancelled, A1 Antigen Typing Cancelled, Rho(D) Type Cancelled, Antibody Screen Cancelled, Crossmatch See Detail 04/02/20 02:20: Sodium 119 L*, Potassium 5.7 H, Chloride 92 L, Carbon Dioxide 16.0 L, Anion Gap 11, BUN 149 H*, Creatinine 4.11 H, Estim Creat Clear Calc 21.63, Est GFR (MDRD) Af Amer 20 L, Est GFR (MDRD) Non-Af 16 L, BUN/Creatinine Ratio 36.3 H, Glucose 63 L, Calcium 8.3 L, Phosphorus 9.0 H*, Magnesium 2.8 H, Total Bilirubin 3.90 H, AST 51 H, ALT 34, Alkaline Phosphatase 116, Total Protein 4.7 L, Albumin 1.8 L, Globulin 2.9, Albumin/Globulin Ratio 0.6 L 04/02/20 02:20: WBC 16.8 H, RBC 2.17 L, Hgb 6.9 L, Hct 19.7 L, MCV 90.8, MCH 31.8, MCHC 35.0, RDW Std Deviation 55.4 H, RDW Coeff of Pravin 16.6 H, Plt Count 56 L, MPV 11.0, Immature Gran % (Auto) 2.000 H, Neut % (Auto) 81.8 H, Lymph % (Auto) 6.3 L, Valley % (Auto) 9.1, Eos % (Auto) 0.7, Baso % (Auto) 0.1, Absolute Neuts (auto) 13.8 H, Absolute Lymphs (auto) 1.06, Nucleated RBC % 0, Diff Path Review Reviewed 04/02/20 02:23: POC Glucose 60 L 04/02/20 02:45: POC Glucose 77 04/02/20 05:25: POC Glucose 91 04/02/20 09:55: Hep Bs Antigen Non-Reactive 04/02/20 13:50: Sodium 122 L, Potassium 5.1, Chloride 93 L, Carbon Dioxide 19.0 L, Anion Gap 10, BUN 125 H*, Creatinine 3.42 H, Estim Creat Clear Calc 25.99, Est GFR (MDRD) Af Amer 24 L, Est GFR (MDRD) Non-Af 20 L, BUN/Creatinine Ratio 36.5 H, Glucose 104, Calcium 7.7 L Current Medications Acetaminophen (Acetaminophen 325 Mg Tablet) 650 mg PO Q6H PRN PRN PRN Reason: Pain Score 1-10/Temp > 100.7 F Calamine/Phenol (Menthol/Lanolin/Calamine/Znox 113 Gm Tube) 1 applic TOPICAL BID [facility]; Protocol Doxycycline Monohydrate (Doxycycline 100 Mg Capsule) 100 mg PO BID [facility] Last Admin: 04/02/20 10:44 Dose: 100 mg Documented by: Folic Acid (Folic Acid 1 Mg Tablet) 1 mg PO DAILY@0800 [facility] Last Admin: 04/02/20 10:43 Dose: 1 mg Documented by: Hydralazine HCl (Hydralazine 20 Mg/Ml Vial) 10 mg IV Q4H PRN PRN PRN Reason: SBP > 160 Sodium Chloride () 1,000 mls @ 75 mls/hr IV .[id number] [facility] Last Admin: 04/02/20 10:42 Dose: 75 mls/hr Documented by: Norepinephrine Bitartrate 8 mg (/ Sodium Chloride) 250 mls @ 9.375 mls/hr CONT INF .[id number] [facility]; Protocol Last Titration: 04/02/20 14:00 Dose: 20 mcg/min, 37.5 mls/hr Documented by: Piperacillin Sod/Tazobactam (Sod 3.375 gm/ Sodium Chloride) 50 mls @ 12.5 mls/hr IV Q12 [facility] Midodrine (Midodrine Hcl 5 Mg Tablet) 10 mg PO TID@0800,1200,1700 [facility] Last Admin: 04/02/20 13:33 Dose: 10 mg Documented by: Nitroglycerin (Nitroglycerin (Inpatient Use) 0.4 Mg Tab.Subl) 0.4 mg SUBLINGUAL Q5M PRN PRN Reason: CARDIAC/CHEST PAIN Oxycodone HCl (Oxycodone 5 Mg Tablet) 5 mg PO Q4H PRN PRN PRN Reason: Pain Score 4-5 Last Admin: 04/01/20 21:24 Dose: 5 mg Documented by: Prochlorperazine Edisylate (Prochlorperazine 10 Mg/2 Ml Vial) 5 mg IV Q4H PRN PRN PRN Reason: Breakthrough Nausea/Vomiting Senna/Docusate Sodium (Senna/Docusate Sodium 1 Tablet) 2 tablet PO BID PRN PRN Reason: Constipation Sodium Chloride (0.9% Saline Lock 10 Ml Syringe) 10 - 40 ml IV UD PRN PRN Reason: SALINE FLUSH Last Admin: 04/02/20 13:56 Dose: 40 ml Documented by: Assessment/Plan All Active Problems (Last Reviewed 03/12/20 @ 12:54 by Annette Santo) PETER (acute kidney injury) (Acute) Abscess (Resolved) Bacteremia (Resolved) PETER likely ATN with hypotension CKD baseline 1.5?2.5 Hyperkalemia Hyponatremia Metabolic acidosis non-anion gap Shock Liver cirrhosis The patient underwent dialysis this morning for very short duration very low flows to avoid overcorrection of hyponatremia His hyperkalemia resolved His uremia improved somewhat. Will likely need dialysis tomorrow again Awaiting transfer today to We will reevaluate dialysis needs on a daily basis. check renal US UA FENA if still here tomorrow. keep MAP>65 on levophed now avoid nephrotoxins Of assessment and plan was discussed at length with the patient who voiced understanding and agrees to proceed with the plan as outlined above. He was given the opportunity to ask questions and stated that those were answered to satisfaction. Thank you very much for allowing me to participate in the care of this patient. Please do not hesitate to call if you have any questions or concerns.
[2020-04-02 17:38] LABS: Bacteria 0 SEEN /hpf (None Seen); Mucous, Urine 0 SEEN /hpf (<or=2+); Red Blood Cells-Urine 0 SEEN /hpf (0-5); Squamous Epithelial Cells - UA 0 SEEN /hpf (0-5)
[2020-04-02 17:50] LABS: Color, Urine Yellow (Yellow); Glucose, Dipstick Normal (Normal); Ketone-Dipstick Negative (Negative); Leukocyte Esterase-Dipstick 25 /ul (Negative); Nitrite-Dipstick Negative (Negative); Occult Blood-Urine 10 /ul (Negative); Protein-Dipstick Negative (Negative); Urine Bilirubin Dipstick Negative (Negative); Urine Clarity Clear (Clear); Urine Urobilinogen Normal (Normal)
[2020-04-02 18:07] LABS: Urine Sodium < 5 mmol/L (Not Establ.)
[2020-04-02 18:12] LABS: White Blood Cells 0-5 SEEN /hpf (0-5)
[2020-04-02] MEDS: Menthol/Lanolin/Calamine/Znox 113 GM Tube 1 APPLIC TOPICAL (21:07)
[2020-04-03] VITALS (20 sets, daily range): BP systolic 91–113; BP diastolic 39–56; PULSE 69–82; RESP 12–18; TEMP 36.6–36.9; O2SAT 94–99
[2020-04-03 05:35] LABS: Absolute Lymphocyte Count 0.85 X10^3/uL (0.83-4.51); Absolute Neutrophil Count 10.6 X10^3/uL (2.0-7.7); Basophil# 0.01 X10^3/uL; Basophil% 0.1 % (0-1); Eosinophil# 0.26 X10^3/uL; Hematocrit 21.4 % (40-54); Hemoglobin 7.5 g/dL (13.0-16.5); Lymphocyte # 0.85 X10^3/ul (4.0); Lymphocyte % 6.7 % (19-41); Mean Corpuscular Hgb 31.8 pg (27.0-32.0); Mean Corpuscular Volume 90.7 fL (80-94); Mean Platelet Vol. 11.7 fl (6.2-12.0); Monocyte# 0.91 X10^3/uL; Monocyte% 7.1 % (0-10); NRBC Flagged by Analyzer 0 % (0-5); Neutrophil # 10.57 X10^3/uL (2.7-7.7); Neutrophil % 82.9 % (47-70); POSITIVE COUNT YES; RBC Distribution Width CV 16.9 % (11.6-14.6); RBC Distribution Width SD 55.4 fl (35.1-43.9); Red Blood Count 2.36 M/mm3 (4.6-6.2); White Blood Count 12.8 K/mm3 (4.4-11.0)
[2020-04-03 05:44] LABS: Differential Indicated SCAN CRITERIA MET
[2020-04-03 05:46] LABS: Platelet Count 38 K/mm3 (150-450)
[2020-04-03 06:11] LABS: ALB/GLOB Ratio 0.6 RATIO (0.9-2.4); AST(SGOT) 50 U/L (15-37); Alanine Aminotransfer ALT/SGPT 33 U/L (16-61); Albumin, Serum 1.7 g/dL (3.2-5.0); Alkaline Phosphatase 120 U/L (45-117); Anion Gap 9 (5-15); BUN 128 mg/dL (7-18); BUN/Creat Ratio 38.8 RATIO (10-20); Calcium,Total 7.4 mg/dL (8.5-10.1); Chloride 93 mmol/L (98-107); EST Glomerular Filtration Rate 21 mL/min (>60); Est Glom Filt Rate - Afr Amer 25 mL/min (>60); Estimated Creatinine Clearance 26.94 ml/min; Globulin 2.9 g/dL (2.2-4.2); Glucose 113 mg/dL (74-106); Potassium 4.4 mmol/L (3.5-5.1); Protein, Total 4.6 g/dL (6.4-8.2); Sodium Level 122 mmol/L (136-145)
--- NOTE | 2020-04-03 06:15 | PN_ITS ---
Subjective: The patient was seen and examined at the bedside this morning. Events from the last 24 hours have been reviewed. The patient remains on Levophed at 8 mcg/min to maintain hemodynamic stability. The patient's peritoneal catheter was removed yesterday. He continues to have drainage from the site. Hemoglobin is improved this morning to 7.5 g/dL. Platelet count remains low at 38,000. The patient is currently documented to be overall net +4.3 L for the hospital admission. He is currently maintaining appropriate oxygen saturations on room air. Objective: The patient's most recent lab work, culture data and imaging studies have all been personally reviewed. Coronavirus rapid antigen screening was negative. Peritoneal fluid culture was positive for gram-negative adalgisa. Blood cultures are pending. General: Alert, No apparent distress, - - Jaundiced in appearance HEENT: Atraumatic, Normocephalic Oral: Moist Mucosa, - - Poor generalized dentition Neck: Supple, No Nodes, Trachea Midline, - - Bilateral central venous catheters in place Lungs: No rhonchi, No wheeze, No rales, Diminished Cardiovascular: Regular rate, Regular Rhythm Abdomen: Bowel Sounds Present, Soft Extremities: No clubbing, No cyanosis, No edema Skin: No breakdown Musculoskeletal: No Tenderness to Palpation of Joints or Extremities Lymphatic: No Cervical, Supraclavicular, or Inguinal Adenopathy Neurological: - - No focal neurological deficits. Psych/Mental Status: Flat Affect Vital Signs Temp Pulse Resp BP Pulse Ox 98 F 74 13 113/54 L 95 04/03/20 00:00 04/03/20 05:00 04/03/20 05:00 04/03/20 05:00 04/03/20 05:00 Oxygen Delivery Method Room Air Weight: 211 lb 3.245 oz Body Mass Index (BMI) 28.3 Intake and Output for Last 24 Hours 04/01/20 04/02/20 04/03/20 23:59 23:59 23:59 Intake Total 2414.45 / 2516.33 3782.52 / 4165.02 540.83 / 540.83 Output Total 0 / 0 1865 / 2415 550 / 550 Balance 2414.45 / 2516.33 1917.52 / 1750.02 -9.17 / -9.17 Labs (Last 48 Hours) 04/01/20 04/01/20 04/01/20 14:00 14:00 14:00 WBC 23.4 H RBC 2.81 L Hgb 9.1 L Hct 25.6 L MCV 91.1 MCH 32.4 H MCHC 35.5 RDW Std Deviation 55.3 H RDW Coeff of Pravin 16.8 H Plt Count 74 L MPV 11.6 Immature Gran % (Auto) 2.900 H Neut % (Auto) 85.1 H Lymph % (Auto) 4.5 L [place] % (Auto) 7.0 Eos % (Auto) 0.3 Baso % (Auto) 0.2 Absolute Neuts (auto) 19.9 H Absolute Lymphs (auto) 1.04 Nucleated RBC % 0 Differential Comment COMMENT Diff Path Review Reviewed Platelet Estimate MOD DEC PT INR Sodium 113 L* Potassium 6.7 H* Chloride 85 L Carbon Dioxide 16.0 L Anion Gap 12 BUN 150 H* Creatinine 4.45 H Estim Creat Clear Calc 19.98 Est GFR (MDRD) Af Amer 18 L Est GFR (MDRD) Non-Af 15 L BUN/Creatinine Ratio 33.7 H Glucose 64 L Lactic Acid 2.3 H* Calcium 9.1 Phosphorus Magnesium Total Bilirubin 6.10 H AST 68 H ALT 44 Alkaline Phosphatase 159 H Ammonia Lactate Dehydrogenase Total Protein 5.6 L Albumin 1.9 L Globulin 3.7 Albumin/Globulin Ratio 0.5 L Lipase 756 H Urine Color Urine Clarity Urine pH Ur Specific [place] Urine Protein Urine Glucose (UA) Urine Ketones Urine Occult Blood Urine Nitrite Urine Bilirubin Urine Urobilinogen Ur Leukocyte Esterase Urine RBC Urine WBC Ur Squamous Epith Cells Urine Bacteria Urine Mucus Ur Random Sodium Urine Creatinine Fluid Source Fluid Color Fluid Appearance Fluid pH Fluid WBC Fluid RBC Fluid Tot Cell Count Fld Polynuclear WBCs # Fld Polynuclear WBCs % Fluid Mononuclear WBCs Fld Mononuclear WBCs % Fluid Neutrophils Fluid Monocytes Fl Pathologist Comment Fluid Glucose Fluid Total Protein Fluid LDH Fluid Amylase Fluid Comment 2 Hep Bs Antigen MRSA (PCR) POC Glucose Blood Type A1 Antigen Typing Rho(D) Type Antibody Screen Crossmatch 04/01/20 04/01/20 04/01/20 15:17 17:20 17:20 WBC RBC Hgb Hct MCV MCH MCHC RDW Std Deviation RDW Coeff of Pravin Plt Count MPV Immature Gran % (Auto) Neut % (Auto) Lymph % (Auto) [place] % (Auto) Eos % (Auto) Baso % (Auto) Absolute Neuts (auto) Absolute Lymphs (auto) Nucleated RBC % Differential Comment Diff Path Review Platelet Estimate PT INR Sodium 117 L* Potassium 6.0 H* Chloride 88 L Carbon Dioxide 18.0 L Anion Gap 11 BUN 148 H* Creatinine 4.20 H Estim Creat Clear Calc 21.17 Est GFR (MDRD) Af Amer 19 L Est GFR (MDRD) Non-Af 16 L BUN/Creatinine Ratio 35.2 H Glucose 62 L Lactic Acid Calcium 8.7 Phosphorus Magnesium Total Bilirubin AST ALT Alkaline Phosphatase Ammonia < 10.0 L Lactate Dehydrogenase 109 Total Protein Albumin Globulin Albumin/Globulin Ratio Lipase Urine Color Urine Clarity Urine pH Ur Specific [place] Urine Protein Urine Glucose (UA) Urine Ketones Urine Occult Blood Urine Nitrite Urine Bilirubin Urine Urobilinogen Ur Leukocyte Esterase Urine RBC Urine WBC Ur Squamous Epith Cells Urine Bacteria Urine Mucus Ur Random Sodium Urine Creatinine Fluid Source Fluid Color Fluid Appearance Fluid pH Fluid WBC Fluid RBC Fluid Tot Cell Count Fld Polynuclear WBCs # Fld Polynuclear WBCs % Fluid Mononuclear WBCs Fld Mononuclear WBCs % Fluid Neutrophils Fluid Monocytes Fl Pathologist Comment Fluid Glucose Fluid Total Protein Fluid LDH Fluid Amylase Fluid Comment 2 Hep Bs Antigen MRSA (PCR) POC Glucose Blood Type A1 Antigen Typing Rho(D) Type Antibody Screen Crossmatch 04/01/20 04/01/20 04/01/20 17:20 18:05 18:05 WBC RBC Hgb Hct MCV MCH MCHC RDW Std Deviation RDW Coeff of Pravin Plt Count MPV Immature Gran % (Auto) Neut % (Auto) Lymph % (Auto) [place] % (Auto) Eos % (Auto) Baso % (Auto) Absolute Neuts (auto) Absolute Lymphs (auto) Nucleated RBC % Differential Comment Diff Path Review Platelet Estimate PT INR Sodium Potassium Chloride Carbon Dioxide Anion Gap BUN Creatinine Estim Creat Clear Calc Est GFR (MDRD) Af Amer Est GFR (MDRD) Non-Af BUN/Creatinine Ratio Glucose Lactic Acid Calcium Phosphorus Magnesium 2.9 H Total Bilirubin AST ALT Alkaline Phosphatase Ammonia Lactate Dehydrogenase Total Protein Albumin Globulin Albumin/Globulin Ratio Lipase Urine Color Urine Clarity Urine pH Ur Specific [place] Urine Protein Urine Glucose (UA) Urine Ketones Urine Occult Blood Urine Nitrite Urine Bilirubin Urine Urobilinogen Ur Leukocyte Esterase Urine RBC Urine WBC Ur Squamous Epith Cells Urine Bacteria Urine Mucus Ur Random Sodium Urine Creatinine Fluid Source Fluid Color Fluid Appearance Fluid pH Pending Fluid WBC Fluid RBC Fluid Tot Cell Count Fld Polynuclear WBCs # Fld Polynuclear WBCs % Fluid Mononuclear WBCs Fld Mononuclear WBCs % Fluid Neutrophils Fluid Monocytes Fl Pathologist Comment Fluid Glucose 34 L* Fluid Total Protein 1.1 Fluid LDH 477 Fluid Amylase Pending Fluid Comment 2 Hep Bs Antigen MRSA (PCR) POC Glucose Blood Type A1 Antigen Typing Rho(D) Type Antibody Screen Crossmatch 04/01/20 04/01/20 04/01/20 18:18 18:33 18:33 WBC RBC Hgb Hct MCV MCH MCHC RDW Std Deviation RDW Coeff of Pravin Plt Count MPV Immature Gran % (Auto) Neut % (Auto) Lymph % (Auto) [place] % (Auto) Eos % (Auto) Baso % (Auto) Absolute Neuts (auto) Absolute Lymphs (auto) Nucleated RBC % Differential Comment Diff Path Review Platelet Estimate PT 23.3 H INR 2.1 Sodium Potassium Chloride Carbon Dioxide Anion Gap BUN Creatinine Estim Creat Clear Calc Est GFR (MDRD) Af Amer Est GFR (MDRD) Non-Af BUN/Creatinine Ratio Glucose Lactic Acid 3.2 H* Calcium Phosphorus Magnesium Total Bilirubin AST ALT Alkaline Phosphatase Ammonia Lactate Dehydrogenase Total Protein Albumin Globulin Albumin/Globulin Ratio Lipase Urine Color Urine Clarity Urine pH Ur Specific [place] Urine Protein Urine Glucose (UA) Urine Ketones Urine Occult Blood Urine Nitrite Urine Bilirubin Urine Urobilinogen Ur Leukocyte Esterase Urine RBC Urine WBC Ur Squamous Epith Cells Urine Bacteria Urine Mucus Ur Random Sodium Urine Creatinine Fluid Source PLEURAL FLUID Fluid Color YELLOW Fluid Appearance CLOUDY Fluid pH Fluid WBC 20.442 Fluid RBC 0.004 Fluid Tot Cell Count 20.517 Fld Polynuclear WBCs # 19.275 Fld Polynuclear WBCs % 83.2 Fluid Mononuclear WBCs 3.890 Fld Mononuclear WBCs % 16.8 Fluid Neutrophils 95 Fluid Monocytes 5 Fl Pathologist Comment Reviewed Fluid Glucose Fluid Total Protein Fluid LDH Fluid Amylase Fluid Comment 2 SEE COMMENT Hep Bs Antigen MRSA (PCR) POC Glucose Blood Type A1 Antigen Typing Rho(D) Type Antibody Screen Crossmatch 04/01/20 04/01/20 04/01/20 21:00 21:10 22:30 WBC RBC Hgb Hct MCV MCH MCHC RDW Std Deviation RDW Coeff of Pravin Plt Count MPV Immature Gran % (Auto) Neut % (Auto) Lymph % (Auto) [place] % (Auto) Eos % (Auto) Baso % (Auto) Absolute Neuts (auto) Absolute Lymphs (auto) Nucleated RBC % Differential Comment Diff Path Review Platelet Estimate PT INR Sodium 117 L* Potassium 6.5 H* Chloride 90 L Carbon Dioxide 17.0 L Anion Gap 10 BUN 150 H* Creatinine 4.23 H Estim Creat Clear Calc 21.02 Est GFR (MDRD) Af Amer 19 L Est GFR (MDRD) Non-Af 16 L BUN/Creatinine Ratio 35.5 H Glucose 70 L Lactic Acid 3.4 H* Calcium 8.7 Phosphorus Magnesium Total Bilirubin AST ALT Alkaline Phosphatase Ammonia Lactate Dehydrogenase Total Protein Albumin Globulin Albumin/Globulin Ratio Lipase Urine Color Urine Clarity Urine pH Ur Specific [place] Urine Protein Urine Glucose (UA) Urine Ketones Urine Occult Blood Urine Nitrite Urine Bilirubin Urine Urobilinogen Ur Leukocyte Esterase Urine RBC Urine WBC Ur Squamous Epith Cells Urine Bacteria Urine Mucus Ur Random Sodium Urine Creatinine Fluid Source Fluid Color Fluid Appearance Fluid pH Fluid WBC Fluid RBC Fluid Tot Cell Count Fld Polynuclear WBCs # Fld Polynuclear WBCs % Fluid Mononuclear WBCs Fld Mononuclear WBCs % Fluid Neutrophils Fluid Monocytes Fl Pathologist Comment Fluid Glucose Fluid Total Protein Fluid LDH Fluid Amylase Fluid Comment 2 Hep Bs Antigen MRSA (PCR) Negative POC Glucose Blood Type A1 Antigen Typing Rho(D) Type Antibody Screen Crossmatch 04/02/20 04/02/20 04/02/20 01:09 01:15 01:15 WBC RBC Hgb Hct MCV MCH MCHC RDW Std Deviation RDW Coeff of Pravin Plt Count MPV Immature Gran % (Auto) Neut % (Auto) Lymph % (Auto) [place] % (Auto) Eos % (Auto) Baso % (Auto) Absolute Neuts (auto) Absolute Lymphs (auto) Nucleated RBC % Differential Comment Diff Path Review Platelet Estimate PT INR Sodium Potassium Chloride Carbon Dioxide Anion Gap BUN Creatinine Estim Creat Clear Calc Est GFR (MDRD) Af Amer Est GFR (MDRD) Non-Af BUN/Creatinine Ratio Glucose Lactic Acid Calcium Phosphorus Magnesium Total Bilirubin AST ALT Alkaline Phosphatase Ammonia Lactate Dehydrogenase Total Protein Albumin Globulin Albumin/Globulin Ratio Lipase Urine Color Urine Clarity Urine pH Ur Specific [place] Urine Protein Urine Glucose (UA) Urine Ketones Urine Occult Blood Urine Nitrite Urine Bilirubin Urine Urobilinogen Ur Leukocyte Esterase Urine RBC Urine WBC Ur Squamous Epith Cells Urine Bacteria Urine Mucus Ur Random Sodium Urine Creatinine Fluid Source Fluid Color Fluid Appearance Fluid pH Fluid WBC Fluid RBC Fluid Tot Cell Count Fld Polynuclear WBCs # Fld Polynuclear WBCs % Fluid Mononuclear WBCs Fld Mononuclear WBCs % Fluid Neutrophils Fluid Monocytes Fl Pathologist Comment Fluid Glucose Fluid Total Protein Fluid LDH Fluid Amylase Fluid Comment 2 Hep Bs Antigen MRSA (PCR) POC Glucose 138 H Blood Type O POSITIVE Cancelled A1 Antigen Typing Cancelled Rho(D) Type Cancelled Antibody Screen NEGATIVE Cancelled Crossmatch See Detail 04/02/20 04/02/20 04/02/20 02:20 02:20 02:23 WBC 16.8 H RBC 2.17 L Hgb 6.9 L Hct 19.7 L MCV 90.8 MCH 31.8 MCHC 35.0 RDW Std Deviation 55.4 H RDW Coeff of Pravin 16.6 H Plt Count 56 L MPV 11.0 Immature Gran % (Auto) 2.000 H Neut % (Auto) 81.8 H Lymph % (Auto) 6.3 L [place] % (Auto) 9.1 Eos % (Auto) 0.7 Baso % (Auto) 0.1 Absolute Neuts (auto) 13.8 H Absolute Lymphs (auto) 1.06 Nucleated RBC % 0 Differential Comment Diff Path Review Reviewed Platelet Estimate PT INR Sodium 119 L* Potassium 5.7 H Chloride 92 L Carbon Dioxide 16.0 L Anion Gap 11 BUN 149 H* Creatinine 4.11 H Estim Creat Clear Calc 21.63 Est GFR (MDRD) Af Amer 20 L Est GFR (MDRD) Non-Af 16 L BUN/Creatinine Ratio 36.3 H Glucose 63 L Lactic Acid Calcium 8.3 L Phosphorus 9.0 H* Magnesium 2.8 H Total Bilirubin 3.90 H AST 51 H ALT 34 Alkaline Phosphatase 116 Ammonia Lactate Dehydrogenase Total Protein 4.7 L Albumin 1.8 L Globulin 2.9 Albumin/Globulin Ratio 0.6 L Lipase Urine Color Urine Clarity Urine pH Ur Specific [place] Urine Protein Urine Glucose (UA) Urine Ketones Urine Occult Blood Urine Nitrite Urine Bilirubin Urine Urobilinogen Ur Leukocyte Esterase Urine RBC Urine WBC Ur Squamous Epith Cells Urine Bacteria Urine Mucus Ur Random Sodium Urine Creatinine Fluid Source Fluid Color Fluid Appearance Fluid pH Fluid WBC Fluid RBC Fluid Tot Cell Count Fld Polynuclear WBCs # Fld Polynuclear WBCs % Fluid Mononuclear WBCs Fld Mononuclear WBCs % Fluid Neutrophils Fluid Monocytes Fl Pathologist Comment Fluid Glucose Fluid Total Protein Fluid LDH Fluid Amylase Fluid Comment 2 Hep Bs Antigen MRSA (PCR) POC Glucose 60 L Blood Type A1 Antigen Typing Rho(D) Type Antibody Screen Crossmatch 04/02/20 04/02/20 04/02/20 02:45 05:25 09:55 WBC RBC Hgb Hct MCV MCH MCHC RDW Std Deviation RDW Coeff of Pravin Plt Count MPV Immature Gran % (Auto) Neut % (Auto) Lymph % (Auto) [place] % (Auto) Eos % (Auto) Baso % (Auto) Absolute Neuts (auto) Absolute Lymphs (auto) Nucleated RBC % Differential Comment Diff Path Review Platelet Estimate PT INR Sodium Potassium Chloride Carbon Dioxide Anion Gap BUN Creatinine Estim Creat Clear Calc Est GFR (MDRD) Af Amer Est GFR (MDRD) Non-Af BUN/Creatinine Ratio Glucose Lactic Acid Calcium Phosphorus Magnesium Total Bilirubin AST ALT Alkaline Phosphatase Ammonia Lactate Dehydrogenase Total Protein Albumin Globulin Albumin/Globulin Ratio Lipase Urine Color Urine Clarity Urine pH Ur Specific [place] Urine Protein Urine Glucose (UA) Urine Ketones Urine Occult Blood Urine Nitrite Urine Bilirubin Urine Urobilinogen Ur Leukocyte Esterase Urine RBC Urine WBC Ur Squamous Epith Cells Urine Bacteria Urine Mucus Ur Random Sodium Urine Creatinine Fluid Source Fluid Color Fluid Appearance Fluid pH Fluid WBC Fluid RBC Fluid Tot Cell Count Fld Polynuclear WBCs # Fld Polynuclear WBCs % Fluid Mononuclear WBCs Fld Mononuclear WBCs % Fluid Neutrophils Fluid Monocytes Fl Pathologist Comment Fluid Glucose Fluid Total Protein Fluid LDH Fluid Amylase Fluid Comment 2 Hep Bs Antigen Non-Reactive MRSA (PCR) POC Glucose 77 91 Blood Type A1 Antigen Typing Rho(D) Type Antibody Screen Crossmatch 04/02/20 04/02/20 04/02/20 10:00 10:00 13:50 WBC RBC Hgb Hct MCV MCH MCHC RDW Std Deviation RDW Coeff of Pravin Plt Count MPV Immature Gran % (Auto) Neut % (Auto) Lymph % (Auto) [place] % (Auto) Eos % (Auto) Baso % (Auto) Absolute Neuts (auto) Absolute Lymphs (auto) Nucleated RBC % Differential Comment Diff Path Review Platelet Estimate PT INR Sodium 122 L Potassium 5.1 Chloride 93 L Carbon Dioxide 19.0 L Anion Gap 10 BUN 125 H* Creatinine 3.42 H Estim Creat Clear Calc 25.99 Est GFR (MDRD) Af Amer 24 L Est GFR (MDRD) Non-Af 20 L BUN/Creatinine Ratio 36.5 H Glucose 104 Lactic Acid Calcium 7.7 L Phosphorus Magnesium Total Bilirubin AST ALT Alkaline Phosphatase Ammonia Lactate Dehydrogenase Total Protein Albumin Globulin Albumin/Globulin Ratio Lipase Urine Color Yellow Urine Clarity Clear Urine pH 5.0 Ur Specific [place] 1.020 Urine Protein Negative Urine Glucose (UA) Normal Urine Ketones Negative Urine Occult Blood 10 H Urine Nitrite Negative Urine Bilirubin Negative Urine Urobilinogen Normal Ur Leukocyte Esterase 25 H Urine RBC 0 SEEN Urine WBC 0-5 SEEN Ur Squamous Epith Cells 0 SEEN Urine Bacteria 0 SEEN Urine Mucus 0 SEEN Ur Random Sodium < 5 Urine Creatinine 137.00 Fluid Source Fluid Color Fluid Appearance Fluid pH Fluid WBC Fluid RBC Fluid Tot Cell Count Fld Polynuclear WBCs # Fld Polynuclear WBCs % Fluid Mononuclear WBCs Fld Mononuclear WBCs % Fluid Neutrophils Fluid Monocytes Fl Pathologist Comment Fluid Glucose Fluid Total Protein Fluid LDH Fluid Amylase Fluid Comment 2 Hep Bs Antigen MRSA (PCR) POC Glucose Blood Type A1 Antigen Typing Rho(D) Type Antibody Screen Crossmatch 04/03/20 04/03/20 05:20 05:20 WBC 12.8 H RBC 2.36 L Hgb 7.5 L Hct 21.4 L MCV 90.7 MCH 31.8 MCHC 35.0 RDW Std Deviation 55.4 H RDW Coeff of Pravin 16.9 H Plt Count 38 L* MPV 11.7 Immature Gran % (Auto) 1.200 H Neut % (Auto) 82.9 H Lymph % (Auto) 6.7 L [place] % (Auto) 7.1 Eos % (Auto) 2.0 Baso % (Auto) 0.1 Absolute Neuts (auto) 10.6 H Absolute Lymphs (auto) 0.85 Nucleated RBC % 0 Differential Comment Diff Path Review Platelet Estimate PT INR Sodium 122 L Potassium 4.4 Chloride 93 L Carbon Dioxide 20.0 L Anion Gap 9 BUN 128 H* Creatinine 3.30 H Estim Creat Clear Calc 26.94 Est GFR (MDRD) Af Amer 25 L Est GFR (MDRD) Non-Af 21 L BUN/Creatinine Ratio 38.8 H Glucose 113 H Lactic Acid Calcium 7.4 L Phosphorus Magnesium Total Bilirubin 4.80 H AST 50 H ALT 33 Alkaline Phosphatase 120 H Ammonia Lactate Dehydrogenase Total Protein 4.6 L Albumin 1.7 L Globulin 2.9 Albumin/Globulin Ratio 0.6 L Lipase Urine Color Urine Clarity Urine pH Ur Specific [place] Urine Protein Urine Glucose (UA) Urine Ketones Urine Occult Blood Urine Nitrite Urine Bilirubin Urine Urobilinogen Ur Leukocyte Esterase Urine RBC Urine WBC Ur Squamous Epith Cells Urine Bacteria Urine Mucus Ur Random Sodium Urine Creatinine Fluid Source Fluid Color Fluid Appearance Fluid pH Fluid WBC Fluid RBC Fluid Tot Cell Count Fld Polynuclear WBCs # Fld Polynuclear WBCs % Fluid Mononuclear WBCs Fld Mononuclear WBCs % Fluid Neutrophils Fluid Monocytes Fl Pathologist Comment Fluid Glucose Fluid Total Protein Fluid LDH Fluid Amylase Fluid Comment 2 Hep Bs Antigen MRSA (PCR) POC Glucose Blood Type A1 Antigen Typing Rho(D) Type Antibody Screen Crossmatch Microbiology 04/01/20 17:20 Fluid - Other Gram Stain - Final 04/01/20 17:20 Fluid - Other Body Fluid Culture - Preliminary 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 Electronically Signed: Arvin Vallecillo MD at 14:47 EST , Service support , Abdomen/Pelvis CT 04/01/20 13:50 IMPRESSION: 1. Decrease volume of ascites overlying the surface of the cirrhotic liver. 2. Small hypodense cysts in the left hepatic lobe are unchanged. 3. Contracted gallbladder contains 2.3 cm gallstone. 4. 5 mm nonobstructing calculus in the right lower renal pole, another 2 mm nonobstructing calculus in the right lower renal pole and 3 mm nonobstructing calculus in the right kidney. These are unchanged. 5. Nonvisualization of the appendix but no secondary signs of acute appendicitis. The appendix may be postsurgically absent. 6. Mild haziness of the mesenteric fat is unchanged. 7. Chronic mild thickening of the urinary bladder wall is unchanged. 8. Improvement of the partial atelectases and there bronchograms in the left lower lobe. This is replaced with curvilinear subsegmental atelectases in the left lung base. 9. New partial atelectases in the right posterior lung base with air bronchograms. Electronically Signed: Arvin Vallecillo MD at 15:03 EST , Service support , Chest X-Ray 04/02/20 02:05 IMPRESSION: 1. Appropriate positioning of supportive devices 2. No acute cardiopulmonary disease Electronically Signed: Aftab Zamora MD at 3:05 EST Tel , Service support , Chest X-Ray 04/02/20 09:03 IMPRESSION: 1. No acute cardiopulmonary pathology. 2. No pneumothorax following a second left central line catheter placement was placed and its tip is in the SVC/right upper atrial chamber junction. 3. Right central line catheter tip remains in the SVC and unchanged. Electronically Signed: Arvin Vallecillo MD at 9:54 EST , Service support , Medical Necessity - Tobacco Use Smoking Status: Current every day smoker Tobacco Use: Cigarettes Assessment/Plan All Active Problems (Last Reviewed 03/12/20 @ 12:54 by Annette Santo) PETER (acute kidney injury) (Acute) Abscess (Resolved) Bacteremia (Resolved) RECOMMENDATIONS: 1. Continue broad-spectrum antimicrobials. 2. Dialysis support per nephrology recommendations. 3. Continue Levophed to maintain a systolic blood pressure of 90 mmHg. 4. Continue midodrine. 5. Await bed availability and subsequent transfer to . IMPRESSIONS: 1. Multifactorial shock Likely hypovolemic in etiology and related to the patient's cirrhosis coupled with underlying sepsis. The patient's peritoneal catheter is dislodged with some drainage around the site raising the concern for SBP. The patient is currently on broad-spectrum antimicrobials, which will be continued. I would recommend the cautious use of supplemental IV fluids, given the patient's propensity to third space. Continue vasopressor support as ordered to maintain hemodynamic stability. 2. 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 3. Anemia/thrombocytopenia I do suspect that a component of the patient's anemia and drop in hemoglobin this morning is likely delusional in nature and related to the fluids administered to the patient overnight. There are no overt signs of any active blood loss. Continue to monitor H&H daily, with plans to transfuse if hemoglobin drops below 7 g/dL. 4. Hyponatremia/hyperkalemia/hypochloremia/nongap metabolic acidosis Secondary to numbers 1 and 2. Management as noted above. 5. Acute on chronic kidney disease Concerned that the patient may have a component of ischemic ATN secondary to #1. Plan to continue current supportive measures per nephrology recommendations. 6. History of alcoholic cirrhosis/tobacco dependency Complicates care, management, recovery and prognosis. The patient is awaiting transfer to tertiary care facility. TIME: 33 minutes of critical care time, independent of procedures, was spent addressing the patient's multifactorial shock, decompensated liver failure, anemia, thrombocytopenia, hyponatremia, acute on chronic kidney disease, review of all data and collaboration with the care team. [id number]) [id number] Critical care first hour
[2020-04-03 06:22] LABS: Crenated RBC 2+; Differential Comment SCANNED
--- NOTE | 2020-04-03 06:47 | PCM.PN.HOSP ---
Patient Problems: Active and Suspected Problems (Last Reviewed 03/12/20 @ 12:54 by Annette Santo) PETER (acute kidney injury) (Acute) Subjective: Patient overnight with hypotension requiring initiation of Levophed. Patient status post central line placement as well as removal of peritoneal catheter day prior and continued dialysis catheter status post HD 04/02/2020 for correction of electrolytes however only short duration with very low flows to avoid overcorrection of patient hyponatremia with some improvement of his uremia but potential plan for recurrent dialysis. Patient notes pain has improved, less tender to the abdomen, denies currently any nausea, emesis. Has remained afebrile. Patient remains amenable to plan for transfer to tertiary facility for transplant evaluation. Patient denies fevers, chills, chest pain or dyspnea. Objective: Physical Examination: General: awake, alert, oriented x 3, less irritable, laying in the ICU bed, continued jaundiced appearance. Skin: Jaundiced color, turgor, no icterus, cyanosis. HEENT: AT/NC, EOMI, PERRLA, scleral icterus present, improved less dry MM. Lungs: CTA bilaterally, moderate effort, mild decrease BL bases, no rales, ronchi or wheezing. Heart: Regular rate and rhythm; no gallop, rub audible. Abdomen: soft, less tender to palpation the day prior, status post removal Pleurx, no specific guarding or rebound, distant bowel sounds, no obvious significant ascites. Extremities: no cyanosis, clubbing, or edema. Neurological: patient awake, alert, oriented as noted; cognitive function improved, baseline intact, extremely irritable with staff; pupils equally reactive to light and accomodation; cranial nerves II-XII grossly normal, moving all 4 extremities, strength moderately to severely global decrease secondary to acute presentation. Psychiatric: affect appears fatigued, more calm the day prior, no acute evidence of depressive or anxiety feelings. Vitals/I&O's: Vital Signs Temp Pulse Resp BP Pulse Ox 98 F 74 13 113/54 L 95 04/03/20 00:00 04/03/20 05:00 04/03/20 05:00 04/03/20 05:00 04/03/20 05:00 Oxygen Delivery Method Room Air Weight: 211 lb 3.245 oz Body Mass Index (BMI) 28.3 Intake and Output for Last 24 Hours 04/01/20 04/02/20 04/03/20 23:59 23:59 23:59 Intake Total 2414.45 / 2516.33 3782.52 / 4165.02 1020.83 / 1020.83 Output Total 0 / 0 1865 / 2415 1000 / 1000 Balance 2414.45 / 2516.33 1917.52 / 1750.02 20.83 / 20.83 Microbiology Past 72 Hours 04/01/20 17:20 Fluid - Other Gram Stain - Final 04/01/20 17:20 Fluid - Other Body Fluid Culture - Preliminary GNR lactose whipper beater 04/02/20 10:00 Urine Catheter - Corey Legionella Antigen - Final 04/02/20 10:00 Urine Catheter - Corey Streptococcus pneumoniae Antigen (M - Final 04/01/20 17:00 Mucosa - Nose SARS-CoV-2 Antigen (Rapid) - Final Laboratory Results 04/01/20 14:00: Diff Path Review Reviewed 04/01/20 18:18: Fluid Source PLEURAL FLUID, Fluid Color YELLOW, Fluid Appearance CLOUDY, Fluid WBC 20.442, Fluid RBC 0.004, Fluid Tot Cell Count 20.517, Fld Polynuclear WBCs # 19.275, Fld Polynuclear WBCs % 83.2, Fluid Mononuclear WBCs 3.890, Fld Mononuclear WBCs % 16.8, Fluid Neutrophils 95, Fluid Monocytes 5, Fl Pathologist Comment Reviewed, Fluid Comment 2 SEE COMMENT 04/02/20 01:15: Blood Type Cancelled, A1 Antigen Typing Cancelled, Rho(D) Type Cancelled, Antibody Screen Cancelled, Crossmatch See Detail 04/02/20 02:20: Diff Path Review Reviewed 04/02/20 09:55: Hep Bs Antigen Non-Reactive 04/02/20 10:00: Urine Color Yellow, Urine Clarity Clear, Urine pH 5.0, Ur Specific Early 1.020, Urine Protein Negative, Urine Glucose (UA) Normal, Urine Ketones Negative, Urine Occult Blood 10 H, Urine Nitrite Negative, Urine Bilirubin Negative, Urine Urobilinogen Normal, Ur Leukocyte Esterase 25 H, Urine RBC 0 SEEN, Urine WBC 0-5 SEEN, Ur Squamous Epith Cells 0 SEEN, Urine Bacteria 0 SEEN, Urine Mucus 0 SEEN 04/02/20 10:00: Ur Random Sodium < 5, Urine Creatinine 137.00 04/02/20 13:50: Sodium 122 L, Potassium 5.1, Chloride 93 L, Carbon Dioxide 19.0 L, Anion Gap 10, BUN 125 H*, Creatinine 3.42 H, Estim Creat Clear Calc 25.99, Est GFR (MDRD) Af Amer 24 L, Est GFR (MDRD) Non-Af 20 L, BUN/Creatinine Ratio 36.5 H, Glucose 104, Calcium 7.7 L 04/03/20 05:20: WBC 12.8 H, RBC 2.36 L, Hgb 7.5 L, Hct 21.4 L, MCV 90.7, MCH 31.8, MCHC 35.0, RDW Std Deviation 55.4 H, RDW Coeff of Pravin 16.9 H, Plt Count 38 L*, MPV 11.7, Immature Gran % (Auto) 1.200 H, Neut % (Auto) 82.9 H, Lymph % (Auto) 6.7 L, [place] % (Auto) 7.1, Eos % (Auto) 2.0, Baso % (Auto) 0.1, Absolute Neuts (auto) 10.6 H, Absolute Lymphs (auto) 0.85, Nucleated RBC % 0, Differential Comment SCANNED, Crenated Cell 2+ 04/03/20 05:20: Sodium 122 L, Potassium 4.4, Chloride 93 L, Carbon Dioxide 20.0 L, Anion Gap 9, BUN 128 H*, Creatinine 3.30 H, Estim Creat Clear Calc 26.94, Est GFR (MDRD) Af Amer 25 L, Est GFR (MDRD) Non-Af 21 L, BUN/Creatinine Ratio 38.8 H, Glucose 113 H, Calcium 7.4 L, Total Bilirubin 4.80 H, AST 50 H, ALT 33, Alkaline Phosphatase 120 H, Total Protein 4.6 L, Albumin 1.7 L, Globulin 2.9, Albumin/Globulin Ratio 0.6 L Current Medications Acetaminophen (Acetaminophen 325 Mg Tablet) 650 mg PO Q6H PRN PRN PRN Reason: Pain Score 1-10/Temp > 100.7 F Calamine/Phenol (Menthol/Lanolin/Calamine/Znox 113 Gm Tube) 1 applic TOPICAL BID [facility]; Protocol Last Admin: 04/02/20 21:07 Dose: 1 applic Documented by: Doxycycline Monohydrate (Doxycycline 100 Mg Capsule) 100 mg PO BID [facility] Last Admin: 04/02/20 21:07 Dose: 100 mg Documented by: Folic Acid (Folic Acid 1 Mg Tablet) 1 mg PO DAILY@0800 [facility] Last Admin: 04/02/20 10:43 Dose: 1 mg Documented by: Hydralazine HCl (Hydralazine 20 Mg/Ml Vial) 10 mg IV Q4H PRN PRN PRN Reason: SBP > 160 Sodium Chloride () 1,000 mls @ 75 mls/hr IV .[id number] [facility] Last Admin: 04/02/20 21:06 Dose: 75 mls/hr Documented by: Norepinephrine Bitartrate 8 mg (/ Sodium Chloride) 250 mls @ 9.375 mls/hr CONT INF .[id number] [facility]; Protocol Last Titration: 04/03/20 05:00 Dose: 10 mcg/min, 18.8 mls/hr Documented by: Piperacillin Sod/Tazobactam (Sod 3.375 gm/ Sodium Chloride) 50 mls @ 12.5 mls/hr IV Q12 [facility] Last Infusion: 04/03/20 02:52 Dose: Infused Documented by: Midodrine (Midodrine Hcl 5 Mg Tablet) 10 mg PO TID@0800,1200,1700 [facility] Last Admin: 04/02/20 18:20 Dose: 10 mg Documented by: Nitroglycerin (Nitroglycerin (Inpatient Use) 0.4 Mg Tab.Subl) 0.4 mg SUBLINGUAL Q5M PRN PRN Reason: CARDIAC/CHEST PAIN Oxycodone HCl (Oxycodone 5 Mg Tablet) 5 mg PO Q4H PRN PRN PRN Reason: Pain Score 4-5 Last Admin: 04/01/20 21:24 Dose: 5 mg Documented by: Prochlorperazine Edisylate (Prochlorperazine 10 Mg/2 Ml Vial) 5 mg IV Q4H PRN PRN PRN Reason: Breakthrough Nausea/Vomiting Senna/Docusate Sodium (Senna/Docusate Sodium 1 Tablet) 2 tablet PO BID PRN PRN Reason: Constipation Sodium Chloride (0.9% Saline Lock 10 Ml Syringe) 10 - 40 ml IV UD PRN PRN Reason: SALINE FLUSH Last Admin: 04/02/20 13:56 Dose: 40 ml Documented by: STROKE Vital Signs/Narrative: Vital Signs Pulse Resp BP Pulse Ox 04/03/20 05:00 74 13 113/54 L 95 04/03/20 04:45 72 97/42 L 04/03/20 04:30 72 96/41 L 04/03/20 04:15 71 92/41 L 04/03/20 04:00 70 14 94/40 L 94 04/03/20 03:45 70 105/46 L 04/03/20 03:00 71 12 104/45 L 96 Medical Necessity - Tobacco Use Smoking Status: Current every day smoker Tobacco Use: Cigarettes Assessment/Plan All Active Problems (Last Reviewed 03/12/20 @ 12:54 by Annette Santo) PETER (acute kidney injury) (Acute) Abscess (Resolved) Bacteremia (Resolved) The patient is a 54 y/o M w/ PMHx: Chronic EtOH Cirrhosis with Chronic ascites/anasarca with recent pleurex catheter placement, Chronic Hyponatremia, Chronic anemia, HTN, HLD, Tobacco use who has previously been in the Hospice program, now re-presenting to the [facility] ED on 04/01/20, rescinding hospice with history of recent increased falls, weakness and debility prompting ED evaluation. 1. Acute shock, multifactorial, likely component of hypovolemia, possibly underlying SBP (Peritoneal fluid prelim GNR growth) complicated by Decompensated Liver Failure with history of alcoholic cirrhosis, electrolyte disturbances and non-anion gap metabolic acidosis: Work-up in the ED included BP 80/35, CBC with WBC 23, hemoglobin 9.1, INR 2.1, CMP with sodium 113, chloride 85, potassium 6.7, bicarb 16, BUN/creatinine 150/4.45, lactic acid 2.3, total bilirubin 6.1, CT of the head with no acute intracranial findings, CT abdomen and pelvis with nonobstructing renal calculi along with partial atelectasis right lung base with air bronchograms. Patient admitted to the ICU, some concern for possible peritoneal catheter infection with recent Pleurx catheter placed during prior admission noted to be significantly dislodged upon presentation, maintained on broad-spectrum antibiotic therapy with Zosyn therapy, initially on IV Vanco and Zosyn however MRSA screen negative therefore escalated to Zosyn, central line placed per safety engineer pressure vessels staff, continued on midodrine and lactulose regimen, 04/02/2020 dialysis performed with possible recurrent dialysis needs per nephrology note, 04/03/2020 continued on Levophed drip as patient further hypotensive overnight. Awaiting transfer to for evaluation for transplant, removal of previously placed Pleurx catheter given dislodged nature and possible etiology of current infection. 04/03/2020 CBC with WC 12.8, hemoglobin 7.5, platelet 38 with mildly improved left shift, CMP with sodium 122, chloride 93, carbon oxide 20, BUN/creatinine 128/3.30, total bilirubin 4.80, AST/ALT 50/33, ALK [place] 120. Preliminary peritoneal fluid cx w/ GNR->Enterobacter cloacae, pending Bld Cx per ED. 2. Acute kidney injury on CKD stage III: Secondary to acute presentation as noted #1, shock, complicated by hypovolemia and underlying cirrhotic disease with decompensated liver failure. Admission BUN/Cr 150/4.23, prior baseline creatinine noted to be 1.0-1.2 however patient has been trending up since February with worsening liver failure and prior admission with last 03/24/2020 creatinine 2.41. Patient in the ED administered calcium gluconate and repeat dosing per nephrology on 04/02/2020 prior to HD. Patient underwent dialysis 04/02/2020 performed short duration to avoid overcorrection of hyponatremia, normalization of potassium following. 04/03/2020 BUN/creatinine 128/3.30, K+ 4.4. 3. Hyperkalemia: Admission potassium 6.7, administered insulin, calcium gluconate, Kayexalate, dialysis performed 04/02/2020, nephrology consulted and following. 04/03/2020 K+ 4.4. 4. Acute on chronic hyponatremia: Admission sodium 117, significant additional electrolyte disturbances as noted, dialysis performed 04/02/2020, most recent 04/03/2020 sodium 122, HD session 04/02/2020 of short duration to avoid overcorrection, continue to trend CMP. 5. Acute on chronic anemia: Admission hemoglobin 9.1, repeat 04/02/2020 6.9, likely delusional component secondary to #1 presentation, administered 1 unit PRBC, 04/03/2020 CBC with hemoglobin 7.5, platelets 38. 6. Acute on chronic thrombocytopenia: Secondary to #1, decompensated alcoholic cirrhosis and shock setting as noted #1, admission platelets 74, 04/02/2019 1 repeat platelet 56, previous baseline primarily 72-90, 04/03/2020 platelets 38. 7. History of alcohol abuse: Patient notes maintaining sobriety since May 2019. 8. Anxiety with history of panic attacks: Given current status not on regimen, would hold any sedate of medications especially given hypotensive nature on pressors, would benefit from outpatient follow-up if actually amenable. 9. Hypertension: Given hypotensive presentation with shock as noted on pressors holding patient spironolactone and Lasix therapy. 10. Tobacco Abuse: Encouraged cessation, inpatient consultation per RT, NR if desired. 11. DVT prophylaxis: SCDs, hold on any chemoprophylaxis given acute presentation as noted. 12. CODE STATUS: Full code. Inpatient E&M: 91359 Subs Hosp L3
[2020-04-03] MEDS: Folic Acid 1 MG Tablet PO (08:00)
[2020-04-03] MEDS: Midodrine HCl 5 MG Tablet 10 MG PO (08:01)
[2020-04-03] MEDS: Menthol/Lanolin/Calamine/Znox 113 GM Tube 1 APPLIC TOPICAL (08:02)
[2020-04-03] MEDS: Doxycycline 100 MG CAPSULE PO (08:02)
[2020-04-03] MEDS: 0.9% Normal Saline 1,000 ML 75 ML IV (08:55)
--- NOTE | 2020-04-03 11:08 | NURSING ---
report called to Ganga ASHER at 1100 answered all questions
--- NOTE | 2020-04-03 11:48 | DS.PCM_ITS ---
Discharge Date and Diagnosis - Problem List Patient Problems: Active and Suspected Problems (Last Reviewed 03/12/20 @ 12:54 by Annette Santo) PETER (acute kidney injury) (Acute) Date of Admission: 04/01/20 Date of Discharge: 04/03/20 - Primary Discharge Diagnosis Acute Problems: Active Problems (Last Reviewed 03/12/20 @ 12:54 by Annette Santo) 1. Acute shock, multifactorial, likely component of hypovolemia, possibly underlying SBP (Peritoneal fluid prelim GNR growth-->preliminary Enterobacter cloacea) complicated by Decompensated Liver Failure with history of alcoholic cirrhosis, electrolyte disturbances and non-anion gap metabolic acidosis 2. Acute kidney injury on CKD stage III, Secondary to acute presentation as noted #1, shock, complicated by hypovolemia and underlying cirrhotic disease with decompensated liver failure 3. Hyperkalemia 4. Acute on chronic hyponatremia 5. Acute on chronic anemia 6. Acute on chronic thrombocytopenia 7. History of alcohol abuse 8. Anxiety with history of panic attacks 9. Hypertension 10. Tobacco Abuse - Secondary Discharge Diagnosis Chronic Problems: Chronic Problems (Last Reviewed 03/12/20 @ 12:54 by Annette Santo) Chronic anemia (Chronic) HTN (hypertension) (Chronic) Alcoholism (Chronic) Alcoholic cirrhosis (Chronic) Anasarca (Chronic) Ascites (Chronic) Hyponatremia (Chronic) Anemia (Chronic) Hospital Course and Treatment Imaging Results: 04/02/20 09:03 CXR for Line Placement [RAD] Urgent Dr. Avelar, ICU/Pulm Dr. San, General Surgery Dr. Meade, Nephrology Operations: None Procedures: Blood transfusion, - - Central line, right IJ temporary dialysis catheter placement, removal pleurex catheter. Summary of Care Provided: The patient is a 54 y/o M w/ PMHx: Chronic EtOH Cirrhosis with Chronic ascites/anasarca with recent pleurex catheter placement, Chronic Hyponatremia, Chronic anemia, HTN, HLD, Tobacco use who has previously been in the Hospice program, now re-presented to the [facility] ED on 04/01/20, rescinding hospice with history of recent increased falls, weakness and debility prompting ED evaluation. Work-up in the ED included BP 80/35, CBC with WBC 23, hemoglobin 9.1, INR 2.1, CMP with sodium 113, chloride 85, potassium 6.7, bicarb 16, BUN/creatinine 150/4.45, lactic acid 2.3, total bilirubin 6.1, CT of the head with no acute intracranial findings, CT abdomen and pelvis with nonobstructing renal calculi along with partial atelectasis right lung base with air bronchograms. Patient admitted to the ICU, some concern for possible peritoneal catheter infection with recent Pleurx catheter placed during prior admission noted to be significantly dislodged upon presentation, maintained on broad- spectrum antibiotic therapy with Zosyn therapy, initially on IV Vanco and Zosyn however MRSA screen negative therefore escalated to Zosyn, central line placed per agents' records clerk staff, continued on midodrine and lactulose regimen, 04/02/2020 dialysis performed with possible recurrent dialysis needs per nephrology note, 04/03/2020 continued on Levophed drip as patient further hypotensive overnight. 04/03/2020 CBC with WC 12.8, hemoglobin 7.5, platelet 38 with mildly improved left shift, CMP with sodium 122, chloride 93, carbon oxide 20, BUN/creatinine 128/3.30, total bilirubin 4.80, AST/ALT 50/33, ALK [place] 120. Preliminary peritoneal fluid cx w/ GNR->Enterobacter cloacae, pending Bld Cx per ED. Patient w/ acute kidney injury on CKD stage III: Secondary to acute presentation as noted #1, shock, complicated by hypovolemia and underlying cirrhotic disease with decompensated liver failure. Admission BUN/Cr 150/4.23, prior baseline creatinine noted to be 1.0-1.2 however patient has been trending up since February with worsening liver failure and prior admission with last 03/24/2020 creatinine 2.41. Patient in the ED administered calcium gluconate and repeat dosing per nephrology on 04/02/2020 prior to HD. Patient underwent dialysis 04/02/2020 performed short duration to avoid overcorrection of hyponatremia, normalization of potassium following. 04/03/2020 BUN/creatinine 128/3.30, K+ 4.4. Admission potassium 6.7, administered insulin, calcium gluconate, Kayexalate, dialysis performed 04/02/2020, nephrology consulted and following. Admission sodium 117, significant additional electrolyte disturbances as noted, dialysis performed 04/02/2020, most recent 04/03/2020 sodium 122, HD session 04/02/2020 of short duration to avoid overcorrection, continue to trend CMP. Admission hemoglobin 9.1, repeat 04/02/2020 6.9, likely delusional component secondary to #1 presentation, administered 1 unit PRBC, 04/03/2020 CBC with hemoglobin 7.5, platelets 38. Patient with as noted acute on chronic thrombocytopenia secondary to acute presentation as noted, decompensated alcoholic cirrhosis and shock setting as noted #1, admission platelets 74, previous baseline primarily 72-90, 04/03/2020 platelets 38. Given patient Full Code status, revoked hospice, patient transfer requested to Tertiary Transplant capable facility. Patient Problems: Active and Suspected Problems (Last Reviewed 03/12/20 @ 12:54 by Annette Santo) PETER (acute kidney injury) (Acute) - Physical Exam Vitals/I&O's: Vital Signs Temp Pulse Resp BP Pulse Ox 98.3 F 82 16 97/49 L 94 04/02/20 14:00 04/02/20 14:00 04/02/20 14:00 04/02/20 14:00 04/02/20 14:00 Oxygen Delivery Method Room Air Weight: 207 lb 10.807 oz Body Mass Index (BMI) 28.3 Intake and Output for Last 24 Hours 03/31/20 04/01/20 04/02/20 23:59 23:59 23:59 Intake Total 2414.45 / 2516.33 2466.76 / 2466.76 Output Total 0 / 0 1690 / 1690 Balance 2414.45 / 2516.33 776.76 / 776.76 Microbiology Past 72 Hours 04/01/20 17:20 Fluid - Other Gram Stain - Final 04/01/20 17:20 Fluid - Other Body Fluid Culture - Preliminary GNR lactose systems test technician 04/02/20 10:00 Urine Catheter - Corey Legionella Antigen - Final 04/02/20 10:00 Urine Catheter - Corey Streptococcus pneumoniae Antigen (M - Final 04/01/20 17:00 Mucosa - Nose SARS-CoV-2 Antigen (Rapid) - Final Laboratory Results 04/01/20 14:00: Diff Path Review Reviewed 04/01/20 15:17: Ammonia < 10.0 L 04/01/20 17:20: Sodium 117 L*, Potassium 6.0 H*, Chloride 88 L, Carbon Dioxide 18.0 L, Anion Gap 11, BUN 148 H*, Creatinine 4.20 H, Estim Creat Clear Calc 21.17, Est GFR (MDRD) Af Amer 19 L, Est GFR (MDRD) Non-Af 16 L, BUN/Creatinine Ratio 35.2 H, Glucose 62 L, Calcium 8.7 04/01/20 17:20: Lactate Dehydrogenase 109 04/01/20 17:20: Magnesium 2.9 H 04/01/20 18:05: Fluid Glucose 34 L*, Fluid Total Protein 1.1, Fluid LDH 477 04/01/20 18:05: Fluid pH Pending, Fluid Amylase Pending 04/01/20 18:18: Fluid Source PLEURAL FLUID, Fluid Color YELLOW, Fluid Appearance CLOUDY, Fluid WBC 20.442, Fluid RBC 0.004, Fluid Tot Cell Count 20.517, Fld Polynuclear WBCs # 19.275, Fld Polynuclear WBCs % 83.2, Fluid Mononuclear WBCs 3.890, Fld Mononuclear WBCs % 16.8, Fluid Neutrophils 95, Fluid Monocytes 5, Fl Pathologist Comment Reviewed, Fluid Comment 2 SEE COMMENT 04/01/20 18:33: PT 23.3 H, INR 2.1 04/01/20 18:33: Lactic Acid 3.2 H* 04/01/20 21:00: Sodium 117 L*, Potassium 6.5 H*, Chloride 90 L, Carbon Dioxide 17.0 L, Anion Gap 10, BUN 150 H*, Creatinine 4.23 H, Estim Creat Clear Calc 21.02, Est GFR (MDRD) Af Amer 19 L, Est GFR (MDRD) Non-Af 16 L, BUN/Creatinine Ratio 35.5 H, Glucose 70 L, Calcium 8.7 04/01/20 21:10: MRSA (PCR) Negative 04/01/20 22:30: Lactic Acid 3.4 H* 04/02/20 01:09: POC Glucose 138 H 04/02/20 01:15: Blood Type O POSITIVE, Antibody Screen NEGATIVE 04/02/20 01:15: Blood Type Cancelled, A1 Antigen Typing Cancelled, Rho(D) Type Cancelled, Antibody Screen Cancelled, Crossmatch See Detail 04/02/20 02:20: Sodium 119 L*, Potassium 5.7 H, Chloride 92 L, Carbon Dioxide 16.0 L, Anion Gap 11, BUN 149 H*, Creatinine 4.11 H, Estim Creat Clear Calc 21.63, Est GFR (MDRD) Af Amer 20 L, Est GFR (MDRD) Non-Af 16 L, BUN/Creatinine Ratio 36.3 H, Glucose 63 L, Calcium 8.3 L, Phosphorus 9.0 H*, Magnesium 2.8 H, Total Bilirubin 3.90 H, AST 51 H, ALT 34, Alkaline Phosphatase 116, Total Protein 4.7 L, Albumin 1.8 L, Globulin 2.9, Albumin/Globulin Ratio 0.6 L 04/02/20 02:20: WBC 16.8 H, RBC 2.17 L, Hgb 6.9 L, Hct 19.7 L, MCV 90.8, MCH 31.8, MCHC 35.0, RDW Std Deviation 55.4 H, RDW Coeff of Pravin 16.6 H, Plt Count 56 L, MPV 11.0, Immature Gran % (Auto) 2.000 H, Neut % (Auto) 81.8 H, Lymph % (Auto) 6.3 L, [place] % (Auto) 9.1, Eos % (Auto) 0.7, Baso % (Auto) 0.1, Absolute Neuts (auto) 13.8 H, Absolute Lymphs (auto) 1.06, Nucleated RBC % 0, Diff Path Review Reviewed 04/02/20 02:23: POC Glucose 60 L 04/02/20 02:45: POC Glucose 77 04/02/20 05:25: POC Glucose 91 04/02/20 09:55: Hep Bs Antigen Non-Reactive 04/02/20 13:50: Sodium 122 L, Potassium 5.1, Chloride 93 L, Carbon Dioxide 19.0 L, Anion Gap 10, BUN 125 H*, Creatinine 3.42 H, Estim Creat Clear Calc 25.99, Est GFR (MDRD) Af Amer 24 L, Est GFR (MDRD) Non-Af 20 L, BUN/Creatinine Ratio 36.5 H, Glucose 104, Calcium 7.7 L Current Medications Acetaminophen (Acetaminophen 325 Mg Tablet) 650 mg PO Q6H PRN PRN PRN Reason: Pain Score 1-10/Temp > 100.7 F Doxycycline Monohydrate (Doxycycline 100 Mg Capsule) 100 mg PO BID [facility] Last Admin: 04/02/20 10:44 Dose: 100 mg Documented by: Folic Acid (Folic Acid 1 Mg Tablet) 1 mg PO DAILY@0800 [facility] Last Admin: 04/02/20 10:43 Dose: 1 mg Documented by: Hydralazine HCl (Hydralazine 20 Mg/Ml Vial) 10 mg IV Q4H PRN PRN PRN Reason: SBP > 160 Sodium Chloride () 1,000 mls @ 75 mls/hr IV .[id number] [facility] Last Admin: 04/02/20 10:42 Dose: 75 mls/hr Documented by: Norepinephrine Bitartrate 8 mg (/ Sodium Chloride) 250 mls @ 9.375 mls/hr CONT INF .[id number] [facility]; Protocol Last Titration: 04/02/20 14:00 Dose: 20 mcg/min, 37.5 mls/hr Documented by: Piperacillin Sod/Tazobactam (Sod 3.375 gm/ Sodium Chloride) 50 mls @ 12.5 mls/hr IV Q12 [facility] Midodrine (Midodrine Hcl 5 Mg Tablet) 10 mg PO TID@0800,1200,1700 [facility] Last Admin: 04/02/20 13:33 Dose: 10 mg Documented by: Nitroglycerin (Nitroglycerin (Inpatient Use) 0.4 Mg Tab.Subl) 0.4 mg SUBLINGUAL Q5M PRN PRN Reason: CARDIAC/CHEST PAIN Oxycodone HCl (Oxycodone 5 Mg Tablet) 5 mg PO Q4H PRN PRN PRN Reason: Pain Score 4-5 Last Admin: 04/01/20 21:24 Dose: 5 mg Documented by: Prochlorperazine Edisylate (Prochlorperazine 10 Mg/2 Ml Vial) 5 mg IV Q4H PRN PRN PRN Reason: Breakthrough Nausea/Vomiting Senna/Docusate Sodium (Senna/Docusate Sodium 1 Tablet) 2 tablet PO BID PRN PRN Reason: Constipation Sodium Chloride (0.9% Saline Lock 10 Ml Syringe) 10 - 40 ml IV UD PRN PRN Reason: SALINE FLUSH Last Admin: 04/02/20 13:56 Dose: 40 ml Documented by: Home Medications: Medications to take at Discharge Spironolactone 50 mg PO DAILY 02/11/20 Furosemide [Lasix] 40 mg PO DAILY 03/04/20 Folic Acid 1 mg PO DAILY@0800 03/19/20 Doxycycline 100 mg PO BID #6 cap 03/24/20 Midodrine HCl [Proamatine] 10 mg PO TID #60 tab 03/24/20 Ammonium Lactate [Skin Treatment] 1 applic TP DAILY PRN PRN 04/01/20 Guaifenesin [Cough Syrup] 5 ml PO Q4H PRN PRN 04/01/20 Lactulose 15 ml PO BID 04/01/20 Oxycodone HCl 5 mg PO Q6H PRN 04/01/20 Promethazine HCl 25 mg PO Q6H PRN PRN 04/01/20 Primary Care Physician: Jayesh Jeffers MD [Primary Care Provider] - Disposition: Acute care Hospital Minutes spent on discharge:: 35 Patient Condition:: Critical Medical Necessity - Tobacco Use Smoking Status: Current every day smoker Tobacco Use: Cigarettes Meaningful Use Info Meaningful Use Diagnoses (Choose all that apply): None applicable Inpatient E&M: 42616 Disch Hosp
--- NOTE | 2020-04-03 11:55 | NURSING ---
Physician's ambulance at bedside at 1145 to transport patient Report given. Patient escorted by physicians ambulance @ [id number]
[2020-04-05 13:48] LABS: pH, Body Fluid 11254 6.8 (Not Estab.)
[2020-04-05 13:50] LABS: Amylase Body Fluid 37 U/L (.)
[2020-04-05 14:03] LABS: Pathologist Review Reviewed
[2020-04-05 15:33] LABS: Cytology, Body Fluid / CSF SEE PATHOLOGY REPORT
== END 2020-04-03 12:10 | disposition short-term general hospital (02) | DRG 871 ==
LOC: ED 18:01 → ICU 18:29
PROVIDERS: Internal Medicine; Student in an Organized Health Care Education/Training Program; Admitting Provider Internal Medicine; Emergency Provider Emergency Medicine; PCP Family Medicine; Visit Provider Family Medicine
DX: A41.9 Sepsis, unspecified organism (principal); K65.2 Spontaneous bacterial peritonitis; N17.0 Acute kidney failure with tubular necrosis; R57.1 Hypovolemic shock; E87.1 Hypo-osmolality and hyponatremia; E87.2 Acidosis; D84.81 Immunodeficiency due to conditions classified elsewhere; T85.628A Displacement of other specified internal prosthetic devices, implants and grafts, initial encounter; K70.40 Alcoholic hepatic failure without coma; F17.210 Nicotine dependence, cigarettes, uncomplicated; K70.31 Alcoholic cirrhosis of liver with ascites; E87.5 Hyperkalemia; R65.20 Severe sepsis without septic shock; D63.1 Anemia in chronic kidney disease; N18.30 Chronic kidney disease, stage 3 unspecified; I12.9 Hypertensive chronic kidney disease with stage 1 through stage 4 chronic kidney disease, or unspecified chronic kidney disease; D69.59 Other secondary thrombocytopenia; F41.0 Panic disorder [episodic paroxysmal anxiety]; Z79.899 Other long term (current) drug therapy; E87.8 Other disorders of electrolyte and fluid balance, not elsewhere classified; E86.1 Hypovolemia
CPT/HCPCS: 70450; 71045; 74176; 80048; 80053; 81001; 81002; 82140; 82150; 82570; 82945; 82962; 83605; 83615; 83690; 83735; 83986; 84100; 84157; 84300; 85025; 85610; 86850; 86900; 86901; 86920; 86922; 87040; 87070; 87075; 87077; 87086; 87186; 87205; 87340; 87426; 87449; 87641; 88108; 88313; 89050; 90937; 93005; 94640; 97802; 97803; 99284; 99406; J7030; J7050; P9016; P9047; A4216; G0257; J0610; J0696